=== PATIENT | male | born 1945 | race Caucasian/White ===

== ENCOUNTER → 2016-08-12 | Outpatient (CLI) | payer MEDICARE, OTHER ==
[~2016-08-12] MED LIST: AMLO5TAB2 PO; AMOX500C2 PO; CATHETER FLUSH 10 ML SYR IV PRN; CLIN150C17 PO; CLOP75TA PO; FENO134C PO; FENO135C PO; HYDR-3812 PO; HYDR1TAB86 PO; IOHEXOL 350 MG/ML 100 ML (OMNIPAQUE 350) VIAL IV ONE; MELO-195 PO; METO-333 PO; METO50TA2 PO; METO50TA7 PO; MTF500T PO; NIAC750T PO; NITR0.3T6 SL; NS 100 ML (IVPB) BAG IV ONE; PRD20T PO; ROSU20TA14 PO; ROSU20TA28 PO; ROSU5TAB PO; SMV20T PO; WRF5T PO
--- NOTE | 2016-08-12 14:26 | Diagnostic Imaging Report ---
PROCEDURE: CT neck soft tissue with contrast. TECHNIQUE: Multiple contiguous axial images were obtained through the neck after the administration of contrast. INDICATION: Right neck mass. CT of 07/18/16. 80 mL of Omnipaque 350 is administered intravenously. FINDINGS: There are multiple enlarged lymph nodes in the right cervical chain, anteriorly at level II lymph node measuring in short axis 1.5 cm compared to 1.3 cm on 07/18/16. There is significant enlargement in level II and level III cervical chain lymph nodes seen posterior to the right jugular vein deep to the sternocleidomastoid muscle. There is enlargement and associated significant fatty stranding developing around these nodes at this time. Some of the nodes demonstrate new central hypodensity which could be related to liquefaction, central early necrosis or early abscess formation. There is no drainable abscess seen at this time. The thyroid gland appears unremarkable. The submandibular glands appear symmetric. The parotid glands appear also symmetric. There is mild symmetric thickening in the tonsils with focal calcifications probably related to old infections. There is lucency around the posterior right molar tooth which could be related to a periapical infection or abscess. It is similar to the prior exam. Stable sclerotic lesions in C4 and T2 vertebral bodies of uncertain etiology. The visualized portions of the paranasal sinuses appear unremarkable. IMPRESSION: Interval further enlargement in multiple right cervical lymph nodes mostly involving level II and level III nodes. Level 3 nodes deep to the sternocleidomastoid muscle have internal low density and surrounding fatty stranding which may indicate an infectious etiology or possibly neoplasm with necrosis and surrounding tissue infiltration. The findings were discussed with Dr. Gutierrez and with Dr. Call by Dr. Navarrete at time of dictation. Dictated by: Dictated on workstation # [id number]
--- NOTE | 2016-08-12 14:48 | Diagnostic Imaging Report ---
INDICATION: Lesion on right side of the neck. Neck swollen last . COMPARISON STUDIES: None. FINDINGS: Frontal and lateral views of the chest demonstrate the lungs to be clear. The heart, mediastinum, pulmonary vascularity, and visualized portions of the abdomen appear normal. IMPRESSION: Negative chest. Dictated by: Dictated on workstation # [id number]
== END ==
LOC: RAD 13:08
PROVIDERS: ATTEND Family Medicine
DX: R22.1 Localized swelling, mass and lump, neck (principal)
CPT/HCPCS: 70491; 71020

== ENCOUNTER → 2016-08-13 | Outpatient (CLI) | payer MEDICARE, OTHER ==
[~2016-08-13] MED LIST changes: -CATHETER FLUSH 10 ML SYR IV PRN; -IOHEXOL 350 MG/ML 100 ML (OMNIPAQUE 350) VIAL IV ONE; -NS 100 ML (IVPB) BAG IV ONE
--- NOTE | 2016-08-13 12:37 | Diagnostic Imaging Report ---
Whole body bone scan. Technique: After the intravenous administration of 27 mCi of Technetium 99m MDP, whole body delayed phase bone scan images were obtained with lateral views of the head and neck and the chest regions. Indication: Sclerotic lesions at C4 and T2 vertebral bodies. Lymphadenopathy in the neck Findings: There is mild increased activity seen at T7 vertebral body level and at the L4 level eccentric to the right side. No other suspicious foci of activity seen. The small sclerotic lesions in the mid cervical and upper thoracic spine seen on CT scan of the neck demonstrate no associated significant increased radiotracer uptake. Degenerative related activities in the shoulders, knees and other joints noted. Urinary tract excretion seen. IMPRESSION: Mild nonspecific activity at T7 and L4 vertebral body levels seen. If the enlarged lymph nodes in the neck prove to be malignant, then MRI of the lumbar and thoracic spine to exclude early involvement at these levels would be suggested. Dictated by: Dictated on workstation # [id number]
== END ==
LOC: CARD 07:05
PROVIDERS: ATTEND Family Medicine
DX: M89.9 Disorder of bone, unspecified (principal); R59.0 Localized enlarged lymph nodes
CPT/HCPCS: 78306

== ENCOUNTER 2016-08-15 11:29 | Outpatient (CLI) | payer MEDICARE, OTHER ==
[~2016-08-15] VITALS: Ht 172.7 cm; Wt 81.2 kg
[~2016-08-15 11:29] MED LIST changes: -AMOX500C2 PO; -CLIN150C17 PO; -FENO134C PO; -HYDR-3812 PO; -METO-333 PO; -METO50TA2 PO; -PRD20T PO; -ROSU20TA28 PO; -ROSU5TAB PO
[2016-08-15 11:36] VITALS: BP 156/72
[2016-08-15] MEDS ORDERED: METO-333 PO (11:42)
[2016-08-15] MEDS ORDERED: FENO134C PO (11:43)
[2016-08-15] MEDS ORDERED: METO50TA2 PO (11:51)
[2016-09-05] MEDS ORDERED: HYDR-3812 PO (14:02)
== END 2016-08-15 11:50 | disposition home or self-care (01) ==
LOC: PREOP 11:29
PROVIDERS: ATTEND Surgery
DX: Z01.818 Encounter for other preprocedural examination (principal); Z11.2 Encounter for screening for other bacterial diseases; R59.0 Localized enlarged lymph nodes
CPT/HCPCS: 87081

== ENCOUNTER 2016-08-21 11:22 | Day surgery (SDC) | payer MEDICARE, OTHER ==
[~2016-08-21] VITALS: Ht 172.7 cm; Wt 81.2 kg
[2016-08-21 11:20] VITALS: BP 151/84
[~2016-08-21 11:22] MED LIST changes: +FENO134C PO; +METO-333 PO; +METO50TA2 PO
[2016-08-21] MEDS ORDERED: ROCURONIUM 50 MG/5 ML (ZEMURON) VIAL IV ONE (11:36)
[2016-08-21] MEDS ORDERED: ONDANSETRON 4 MG/2 ML (SDV) Z0FRAN ONE (11:36)
[2016-08-21] MEDS ORDERED: SEVOFLURANE (ULTANE) 15 ML INHAL SOLN ONE (11:36)
[2016-08-21] MEDS ORDERED: LIDOCAINE PF 2% 10 ML (XYLOCAINE) AMP ONE (11:36)
[2016-08-21] MEDS ORDERED: LACTATED RINGERS 1,000 ML IV ONE ×2 (11:36→13:38)
[2016-08-21] MEDS ORDERED: proPOfol 200 MG/20 ML (DIPRIVAN) VIAL IV ONE (11:36)
[2016-08-21] MEDS ORDERED: fentaNYL INJECTION 100 MCG/2 ML AMP ONE (11:36)
[2016-08-21] MEDS ORDERED: MIDAZOLAM 2 MG/2 ML (VERSED) VIAL ONE (11:37)
--- NOTE | 2016-08-21 11:39 | Progress Note-Pre Operative ---
Pre-Operative Progress Note H&P Reviewed The H&P was reviewed, patient examined and no changes noted. Date H&P Reviewed: Aug 21, 2016 Time H&P Reviewed: 11:38 Pre-Operative Diagnosis: Right cervical lymphadenopathy BEAN PEOPLES MD Aug 21, 2016 11:38 am
[2016-08-21] MEDS ORDERED: BUP/EPI 0.25% 1:200,000 (MARCAINE) 30 ML VIAL ONE (11:57)
[2016-08-21] MEDS ORDERED: ceFAZolin 1 GM/NS 50 ML IVPB IV ONE ×2 (12:00)
[2016-08-21] MEDS: LACTATED RINGERS 1,000 ML IV PRN ×2 (12:15→13:46)
--- NOTE | 2016-08-21 14:02 | Progress Note-Post Operative ---
Post-Operative Progess Note Pre-Operative Diagnosis Right cervical lymphadenopathy Post-Operative Diagnosis same Post-Op Procedure Note Date of Procedure: Aug 21, 2016 Name of Procedure: wedge biopsy Anesthesia Type Gen. Estimated blood loss (mL): minimal Specimen(s) collected wedge biopsy of lymph node segments BEAN PEOPLES MD Aug 21, 2016 2:02 pm
[2016-08-21] MEDS ORDERED: morphine INJ 10 MG/ML 1ML (SYR OR VIAL) IVP PRN (14:15)
[2016-08-21] MEDS ORDERED: ONDANSETRON 4 MG/2 ML (SDV) Z0FRAN IVP PRN (14:15)
[2016-08-21] MEDS ORDERED: MEPERIDINE (DEMEROL) INJ 50 MG/ML IVP PRN (14:15)
[2016-08-21 15:00] VITALS: BP 136/85
[2016-08-21 15:30] VITALS: BP 129/91
[2016-08-21] MEDS ORDERED: HYDR-3812 PO (15:39)
[2016-08-21 16:00] VITALS: BP 132/82
[2016-08-21 16:03] VITALS: BP 132/82
--- NOTE | 2016-08-22 11:04 | OPERATIVE REPORT ---
PROCEDURE PHYSICIAN: BEAN PEOPLES DATE OF PROCEDURE: 08/21/2016 PREOPERATIVE DIAGNOSIS: Right cervical lymphadenopathy. POSTOPERATIVE DIAGNOSIS: Right cervical lymphadenopathy. OPERATION: Wedge biopsy of right cervical lymph node (level of 3 region). ANESTHESIA: General anesthesia. BLOOD LOSS: Minimal. FLUIDS: 600 mL crystalloids. TYPE OF WOUND: Type I (clean wound). INDICATION FOR THE PROCEDURE: This gentleman was found to have a necrotic lymph node over the right side of the neck along level 3 of the lymphatic chain, as an incidental finding on a carotid ultrasound. Repeat study performed 3 months after the initial discovery showed more necrosis and therefore, it was felt reasonable to obtain a wedge biopsy to establish a definitive diagnosis. In addition, an 11 mm right thyroid nodule was also discovered. Informed consent was obtained after reviewing the operative details and complications of hematoma and wound infection. DESCRIPTION OF PROCEDURE: He was placed supine on the operative table and general anesthesia induced. Ancef was administered intravenously as a prophylaxis against wound infection. The right side of his neck was prepared and draped in the usual sterile manner. Preemptive analgesia was established using 0.25% Marcaine with epinephrine. A 5 cm incision was made along the anterior border of the sternomastoid muscle and the cervical fascia incised. An elongated group of lymph nodes came into view. Multiple wedge segments were obtained for histologic examination. Hemostasis was achieved using cautery and the incision closed using 3-0 PDS for platysma and 4-0 Vicryl for skin, in a subcuticular fashion. He tolerated the procedure well, was extubated in the operating room and taken to the recovery room in a stable condition. [place], sponges, and instruments were correct the end of the operation. Job ID: [id number] Dictated Date: 08/21/2016 13:56:38 Survey Workers Supervisor Date: 08/22/2016 10:56:59 / oralia AGUDELO
[2016-09-05] MEDS ORDERED: HYDR-3812 PO (14:02)
== END 2016-08-21 16:03 | disposition home or self-care (01) ==
LOC: SDC 11:22
PROVIDERS: ATTEND Surgery
DX: R59.0 Localized enlarged lymph nodes (principal); I25.10 Atherosclerotic heart disease of native coronary artery without angina pectoris; E11.9 Type 2 diabetes mellitus without complications; I10 Essential (primary) hypertension; E78.5 Hyperlipidemia, unspecified; Z87.891 Personal history of nicotine dependence
CPT/HCPCS: 82962; 88184; 88185; 88305; 88341; 88342

== ENCOUNTER 2016-08-24 21:24 | Emergency (ER) | payer MEDICARE, OTHER ==
[~2016-08-24] VITALS: Ht 172.7 cm; Wt 79.4 kg
[~2016-08-24 21:24] MED LIST changes: +HYDR-3812 PO
--- NOTE | 2016-08-24 21:47 | ED Lower Extremity ---
General Chief Complaint: Lower Extremity Stated Complaint: L LEG SWELLING Nursing Triage Note: c/o L leg swelling, patient recently had procedure done and has been off his anticoagulant Nursing Sepsis Screen: No Definite Risk Source: patient Exam Limitations: no limitations History of Present Illness Time seen by provider: 21:46 Initial Comments To ER with left leg swelling. Recently had a right cervical lymph node biopsy done by Dr. Call and was off of his Plavix during that time. Left leg swelling for 2-3 days. Denies shortness of breath. Cervical lymph node biopsy was done for an incidental finding of lymph node necrosis on a carotid Doppler. Onset: yesterday Severity: moderate Pain/Injury Location: right leg Method of Injury: unknown Modifying Factors: Improves With Movement Allergies and Home Medications Allergies Coded Allergies: Sulfamethoxazole (Verified Allergy, Unknown, 10/07/08) trimethoprim (Verified Allergy, Unknown, 10/07/08) Home Medications Amlodipine Besylate 5 Mg Tablet 5 MG PO DAILY (Reported) Clopidogrel Bisulfate 75 Mg Tablet 75 MG PO DAILY (Reported) Fenofibrate,Micronized 134 Mg Capsule 134 MG PO DAILY (Reported) Hydrocodone/Acetaminophen 1 Each Tablet #30 1-2 EACH PO Q4-6 HRS PRN PRN PAIN Prescribed by: MINH BEASLEY on 08/21/16 1539 Metformin Hcl 500 Mg Tablet 1,000 MG PO BID WITH MEALS (Reported) take 2 (500mg) tabs Metoprolol Tartrate 50 Mg Tablet 50 MG PO BID (Reported) Constitutional: see HPI EENTM: see HPI Respiratory: no symptoms reported Cardiovascular: no symptoms reported Genitourinary: no symptoms reported Musculoskeletal: no symptoms reported Skin: no symptoms reported Psychiatric/Neurological: No Symptoms Reported Past Otmauqy-Twddfs-Hbvfoq Hx Patient Social History Alcohol Use: Occasionally Uses Recreational Drug Use: No Smoking Status: Former Smoker Recent Foreign Travel: No Contact w/Someone Who Travel: No Recent Infectious Disease Expo: No Recent Hopitalizations: No Physical Abuse Screen: No Sexual Abuse: No Immunizations Up To Date Date of Pneumonia Vaccine: May 28, 2009 Date of Influenza Vaccine: Jun 29, 2016 Seasonal Allergies Seasonal Allergies: No Surgeries HX Surgeries: Yes (Turp, back sx) Surgeries: Coronary Stent Respiratory Hx Respiratory Disorders: No Cardiovascular Hx Cardiac Disorders: Yes (stent x1, ) Cardiac Disorders: Hypertension Neurological Hx Neurological Disorders: No Reproductive System Hx Reproductive Disorders: No Sexually Transmitted Disease: No Genitourinary Hx Genitourinary Disorders: No Gastrointestinal Hx Gastrointestinal Disorders: No Musculoskeletal Hx Musculoskeletal Disorders: No Endocrine Hx Endocrine Disorders: Yes Endocrine Disorders: Diabetes, Non-Insulin dep HEENT HX ENT Disorders: No (cataracts removed) Cancer Hx Cancer: Yes Cancer: Prostate Psychosocial Hx Psychiatric Problems: No Integumentary HX Skin/Integumentary Disorder: No Blood Transfusions Hx Blood Disorders: No Physical Exam Vital Signs Vital Sign - Last 12Hours 08/24/16 21:35 Temp 98.2 Pulse 93 Resp 18 B/P 181/102 Pulse Ox 96 Capillary Refill : Less Than 3 Seconds General Appearance: WD/WN no apparent distress HEENT: PERRL/EOMI normal ENT inspection Neck: non-tender full range of motion Respiratory: no respiratory distress no accessory muscle use Hips: bilateral hip non-tender, bilateral hip normal inspection, bilateral hip normal range of motion Legs: bilateral leg non-tender, bilateral leg normal inspection, bilateral leg normal range of motion, left leg swelling, left leg other (2+ pitting edema on the left) Knees: bilateral knee non-tender, bilateral knee normal inspection, bilateral knee normal range of motion Ankles: bilateral ankle non-tender, bilateral ankle normal inspection, bilateral ankle normal range of motion Feet: bilateral foot non-tender, bilateral foot normal inspection, bilateral foot normal range of motion Neurologic/Psychiatric: alert normal mood/affect oriented x 3 Skin: normal color warm/dry Progress/Results/Core Measures Results/Orders Lab Results Laboratory Tests Test 08/24/16 21:55 Range/Units Anion Gap 11 5-14 MMOL/L BUN/Creatinine Ratio 18 Basophils # (Auto) 0.0 0.0-0.1 10^3/uL Basophils (%) (Auto) 0 0-10 % Blood Urea Nitrogen 16 7-18 MG/DL Calcium Level 10.0 8.5-10.1 MG/DL Carbon Dioxide Level 22 21-32 MMOL/L Chloride Level 108 H 98-107 MMOL/L Creatinine 0.91 0.60-1.30 MG/DL Eosinophils # (Auto) 0.6 H 0.0-0.3 10^3/uL Eosinophils (%) (Auto) 8 0-10 % Estimat Glomerular Filtration Rate > 60 Glucose Level 118 H 70-105 MG/DL Hematocrit 44 40-54 % Hemoglobin 15.1 13.3-17.7 G/DL Lymphocytes # (Auto) 1.6 1.0-4.0 X 10^3 Lymphocytes (%) (Auto) 23 12-44 % Mean Corpuscular Hemoglobin 31 25-34 PG Mean Corpuscular Hemoglobin Concent 34 32-36 G/DL Mean Corpuscular Volume 89 80-99 FL Mean Platelet Volume 9.7 7.4-10.4 FL Monocytes # (Auto) 0.7 0.0-1.0 X 10^3 Monocytes (%) (Auto) 10 0-12 % Neutrophils # (Auto) 4.2 1.8-7.8 X 10^3 Neutrophils (%) (Auto) 59 42-75 % Platelet Count 263 130-400 10^3/uL Potassium Level 4.2 3.6-5.0 MMOL/L Red Blood Count 4.95 4.35-5.85 10^6/uL Red Cell Distribution Width 12.9 10.0-14.5 % Sodium Level 141 135-145 MMOL/L White Blood Count 7.1 4.3-11.0 10^3/uL My Orders Orders-OLGA LIDIA GARCIA APRN Us Venous Lower Ext Lt (08/24/16 21:41) Cbc With Automated Diff (08/24/16 21:47) Basic Metabolic Panel (08/24/16 21:47) Vital Signs/I&O Vital Sign - Last 12Hours 08/24/16 21:35 Temp 98.2 Pulse 93 Resp 18 B/P 181/102 Pulse Ox 96 Blood Pressure Mean: 128 Departure Impression Impression: Primary Impression: left inguinal lymphadenopathy Additional Impression: Left leg swelling Disposition: 01 HOME, SELF-CARE Condition: Stable Departure-Patient Inst. Decision time for Depature: 22:53 Referrals: LARRY KUO DO (PCP/Family) Primary Care Physician Patient Instructions: NO INSTRUCTIONS GIVEN Add. Discharge Instructions: 1. Follow-up with your regular doctor on Friday or Friday 2. Return to ER for any worsening 3. Keep left leg elevated as much as possible All discharge instructions reviewed with patient and/or family. Voiced understanding. OLGA LIDIA GARCIA APRN Aug 24, 2016 21:47
[2016-08-24 22:03] LABS: BASOPHILS % (AUTO) 0 % (0-10); EOSINOPHILS # (AUTO) 0.6 10^3/uL (0.0-0.3); EOSINOPHILS % (AUTO) 8 % (0-10); LYMPHOCYTES # (AUTO) 1.6 X 10^3 (1.0-4.0); LYMPHOCYTES % (AUTO) 23 % (12-44); MEAN CORPUSCULAR HEMOGLOBIN 31 PG (25-34); MEAN CORPUSCULAR HGB CONC 34 G/DL (32-36); MEAN CORPUSCULAR VOLUME 89 FL (80-99); MEAN PLATELET VOLUME 9.7 FL (7.4-10.4); MONOCYTES # (AUTO) 0.7 X 10^3 (0.0-1.0); MONOCYTES % (AUTO) 10 % (0-12); NEUTROPHILS # (AUTO) 4.2 X 10^3 (1.8-7.8); NEUTROPHILS % (AUTO) 59 % (42-75); PLATELET COUNT 263 10^3/uL (130-400); RED BLOOD COUNT 4.95 10^6/uL (4.35-5.85); RED CELL DISTRIBUTION WIDTH 12.9 % (10.0-14.5); WHITE BLOOD COUNT 7.1 10^3/uL (4.3-11.0)
[2016-08-24 22:29] LABS: ANION GAP 11 MMOL/L (5-14); BLOOD UREA NITROGEN 16 MG/DL (7-18); BUN/CREATININE RATIO 18; CARBON DIOXIDE 22 MMOL/L (21-32); CHLORIDE 108 MMOL/L (98-107); CREATININE SERUM 0.91 MG/DL (0.60-1.30); GFR ESTIMATED > 60; GLUCOSE 118 MG/DL (70-105); POTASSIUM 4.2 MMOL/L (3.6-5.0); SODIUM 141 MMOL/L (135-145)
[2016-08-24 23:01] VITALS: BP 167/99
--- NOTE | 2016-08-25 08:06 | Diagnostic Imaging Report ---
PROCEDURE: US left lower extremity venous. TECHNIQUE: Multiple real-time grayscale images were obtained over the left lower extremity in various projections. Additional duplex Doppler and color Doppler images were also obtained. INDICATION: The femoropopliteal deep venous system throughout the left lower extremity revealed normal color flow, normal compressibility and no thrombus. There is a left inguinal lymph node measuring 3.3 x 3.2 x 1.8 cm of uncertain significance and etiology. IMPRESSION: Negative for venous thrombus however inguinal lymphadenopathy noted, indeterminate. Dictated by: Dictated on workstation # [id number]
[2016-09-05] MEDS ORDERED: HYDR-3812 PO (14:02)
== END 2016-08-24 22:58 | disposition home or self-care (01) ==
LOC: EDUNIT# 21:24 → ER 21:25
DX: R59.0 Localized enlarged lymph nodes (principal); R22.42 Localized swelling, mass and lump, left lower limb; I10 Essential (primary) hypertension; E11.9 Type 2 diabetes mellitus without complications; Z79.899 Other long term (current) drug therapy; Z79.02 Long term (current) use of antithrombotics/antiplatelets; Z79.84 Long term (current) use of oral hypoglycemic drugs
CPT/HCPCS: 36415; 80048; 85025

== ENCOUNTER → 2016-09-03 | Outpatient (CLI) | payer MEDICARE, OTHER ==
[~2016-09-03] MED LIST changes: +AMOX500C2 PO; +CLIN150C17 PO; +PRD20T PO; +ROSU20TA28 PO; +ROSU5TAB PO
--- NOTE | 2016-09-03 13:18 | Diagnostic Imaging Report ---
EXAMINATION: PET-CT TECHNIQUE: Serum glucose level at the time of the study is: 119 mg/dL. 13.1 mCi of FDG was administered intravenously followed by obtaining PET images with corresponding noncontrast CT scan images. The CT scan was performed for anatomic correlation and attenuation correction and was not performed according to the diagnostic protocol of the areas covered. The scan was performed from the head to mid thighs. INDICATION: Large cell lymphoma. Study is correlated with CT scan of the neck from 08/12/2016 exam. FINDINGS: There is symmetric FDG uptake in the brain. There is an FDG avid nodule with SUV of 10 seen in the right tonsil measuring 1.5 cm approximately. There are also FDG avid cervical lymph nodes up to 1.7 cm at level II right cervical chain with multiple other smaller FDG avid lymph nodes more inferiorly at level III, IV and V nodes. There is also an FDG avid intraparotid lymph node on the left side measuring 1 cm in short axis. There are FDG avid lymph nodes mildly enlarged in both axilla measuring 1.3 cm on the left side and up to 1 cm on the right side. There is no hypermetabolic mass seen in the chest. IN THE ABDOMEN AND PELVIS: There is diffuse mild increased uptake in the colon, may relate to colitis with no significantly prominent focus of uptake or correlating focal mass identified by CT scan to suggest neoplastic etiology. The spleen is not significantly enlarged with no suspicious or hypermetabolic mass. There are para-aortic and left common iliac mildly enlarged hypermetabolic lymph nodes seen up to 1.4 cm at the left common iliac station. The para-aortic nodes are up to 1.1 cm aortocaval node in the lower abdomen. No upper retroperitoneal significant adenopathy. More inferiorly in the pelvis, there is a large right external iliac lymph node measuring 5 x 2.5 cm with significant FDG uptake and a maximum SUV of 13. There are bilateral hypermetabolic inguinal enlarged lymph nodes also noted. The osseous structures demonstrate no significant FDG uptake. IMPRESSION: In addition to hypermetabolic nodule in the right tonsil, there are numerous hypermetabolic enlarged lymph nodes in right cervical chain, the left parotid gland, bilaterally in the axilla, lower para-aortic, left common iliac, left external iliac and bilateral inguinal lymph node stations compatible with lymphoma. Dictated by: Dictated on workstation # [id number]
== END ==
LOC: RAD 08:52
PROVIDERS: ATTEND Family Medicine
DX: C83.30 Diffuse large B-cell lymphoma, unspecified site (principal); J35.9 Chronic disease of tonsils and adenoids, unspecified; R59.0 Localized enlarged lymph nodes

== ENCOUNTER 2016-09-04 05:51 | Outpatient (CLI) | payer MEDICARE, OTHER ==
[~2016-09-04] VITALS: Ht 172.7 cm; Wt 79.4 kg
[~2016-09-04 05:51] MED LIST changes: -AMOX500C2 PO; -CLIN150C17 PO; -PRD20T PO; -ROSU20TA28 PO; -ROSU5TAB PO
--- OUTSIDE RECORDS SUMMARY | 2016-09-04 05:56 | XMS REPORT | Continuity of Care Document ---
Author Author [facility] Organization [facility] Address Unknown Phone Unavailable Allergies Active Description Code Type Severity Reaction Onset Reported/Identified Relationship to Patient Clinical Status Yes sulfamethoxazole [id number] Drug Allergy Unknown N/A 10/07/2008 Yes trimethoprim [id number] Drug Allergy Unknown N/A 10/07/2008 Medications Problems Date Dx Coded Attending Type Code Diagnosis Diagnosed By 04/07/2010 Ot 250.00 04/07/2010 Ot 272.4 04/07/2010 Ot 401.9 04/07/2010 Ot 414.01 04/07/2010 Ot 415.19 05/30/2010 Ot 368.8 05/30/2010 Ot 414.00 05/30/2010 Ot 435.9 05/30/2010 Ot V58.61 05/30/2010 Ot V58.69 07/06/2010 Ot V45.82 07/06/2010 Ot V57.89 08/05/2010 Ot 272.4 08/05/2010 Ot 414.01 08/05/2010 Ot 415.19 11/28/2010 Ot 272.4 HYPERLIPIDEMIA NEC/NOS 11/28/2010 Ot 401.9 HYPERTENSION NOS 11/28/2010 Ot 414.01 CORONARY ATHEROSCLEROSIS OF [place] CORON 11/28/2010 Ot 415.19 OTH PULMON EMBOLISM/INFARCT 05/25/2012 Ot 211.4 BENIGN NEOPL RECTUM/ANUS 05/25/2012 Ot 250.00 DIAB DRISS WO COMPL, TYPE II OR UNSPEC TY 05/25/2012 Ot 272.0 PURE HYPERCHOLESTEROLEM 05/25/2012 Ot 401.9 HYPERTENSION NOS 05/25/2012 Ot 414.01 CORONARY ATHEROSCLEROSIS OF [place] CORON 05/25/2012 Ot 562.10 DIVERTICULOSIS COLON (W/O MENT OF HEMORR 05/25/2012 Ot V45.82 PERCUTANEOUS TRANSLUM CORON ANGIOPLASTY 05/25/2012 Ot V58.63 LONG-TERM(CURRENT)USE OF ANTIPLATELET/AN 05/25/2012 Ot V58.69 OTH MED,LT,CURRENT USE 05/25/2012 Ot V76.51 SCREEN MAL NEOP-COLON 06/05/2012 Ot 250.00 DIAB DRISS WO COMPL, TYPE II OR UNSPEC TY 06/05/2012 Ot 272.4 HYPERLIPIDEMIA NEC/NOS 06/05/2012 Ot 401.9 HYPERTENSION NOS 06/05/2012 Ot 414.01 CORONARY ATHEROSCLEROSIS OF [place] CORON 06/05/2012 Ot 562.10 DIVERTICULOSIS COLON (W/O MENT OF HEMORR 06/05/2012 Ot 998.11 HEMOR COMPLIC A PROCEDURE 06/05/2012 Ot V45.82 PERCUTANEOUS TRANSLUM CORON ANGIOPLASTY 06/05/2012 Ot V58.61 ANTICOAGULANTS,LT,CURRENT USE 06/05/2012 Ot V58.63 LONG-TERM(CURRENT)USE OF ANTIPLATELET/AN 06/05/2012 Ot V58.66 LONG-TERM (CURRENT) USE OF ASPIRIN 06/09/2014 LARRY KUO DO Ot 241.0 06/21/2014 LARRY KUO DO Ot 241.0 09/22/2014 APRIL BARRON Ot 272.4 09/22/2014 APRIL BARRON Ot 414.00 03/17/2015 Ot 433.10 03/17/2015 Ot 786.50 03/17/2015 Ot 786.50 03/17/2015 Ot 415.19 03/17/2015 Ot V58.69 03/17/2015 Ot 415.19 03/17/2015 Ot 272.4 03/17/2015 Ot 414.01 03/17/2015 Ot 272.4 03/17/2015 Ot 401.9 03/17/2015 Ot 414.01 03/17/2015 Ot 272.4 03/17/2015 Ot 401.9 03/17/2015 Ot 414.01 03/17/2015 Ot V58.69 03/17/2015 Ot 272.4 03/17/2015 Ot 401.9 03/17/2015 Ot 414.01 03/17/2015 Ot 415.19 03/17/2015 Ot V12.51 03/17/2015 Ot 272.4 03/17/2015 Ot 401.9 03/17/2015 Ot 414.00 03/17/2015 Ot V58.69 03/17/2015 Ot 272.4 03/17/2015 Ot 401.9 03/17/2015 Ot 414.00 03/17/2015 Ot V58.69 03/17/2015 Ot 272.4 03/17/2015 Ot 401.9 03/17/2015 Ot V58.69 03/17/2015 Ot V72.84 03/17/2015 Ot 272.4 03/17/2015 Ot 414.00 03/17/2015 Ot V58.69 03/17/2015 Ot 241.0 03/17/2015 Ot 240.9 03/17/2015 Ot 241.0 03/17/2015 Ot 272.4 03/17/2015 Ot 401.9 03/17/2015 Ot 414.00 03/17/2015 Ot V58.69 03/17/2015 Ot 414.00 03/17/2015 Ot V45.82 03/17/2015 VICTOR M FERRARI FAC, ADONAY FACP CCDS Ot 272.4 03/17/2015 VICTOR M FERRARI FAC, ALI FACP CCDS Ot 414.01 03/17/2015 VICTOR M FERRARI [facility], ALI FACP CCDS Ot V58.69 03/17/2015 BAIMA, APRIL L LAY OUT MACHINE OPERATOR Ot 272.4 03/17/2015 BAIMA, APRIL L LAY OUT MACHINE OPERATOR Ot 401.9 03/17/2015 BAIMA, APRIL L LAY OUT MACHINE OPERATOR Ot 414.01 03/17/2015 BAIMA, APRIL L LAY OUT MACHINE OPERATOR Ot 272.4 03/17/2015 BAIMA, APRIL L LAY OUT MACHINE OPERATOR Ot V58.69 03/17/2015 BAIMA, APRIL L LAY OUT MACHINE OPERATOR Ot 272.4 03/17/2015 BAIMA, APRIL L LAY OUT MACHINE OPERATOR Ot 414.00 03/17/2015 BAIMA, APRIL L LAY OUT MACHINE OPERATOR Ot 272.4 03/17/2015 BAIMA, APRIL L LAY OUT MACHINE OPERATOR Ot 414.00 03/17/2015 BAIMA, APRIL L LAY OUT MACHINE OPERATOR Ot 447.9 03/17/2015 LARRY KUO DO Ot 241.0 03/17/2015 BAIMA, APRIL L LAY OUT MACHINE OPERATOR Ot 272.4 03/17/2015 BAIMA, APRIL L LAY OUT MACHINE OPERATOR Ot 414.00 03/21/2015 BAIMA, APRIL L LAY OUT MACHINE OPERATOR Ot 272.4 03/24/2015 BAIMA, APRIL L LAY OUT MACHINE OPERATOR Ot 272.4 04/06/2015 BAIMA, APRIL L LAY OUT MACHINE OPERATOR Ot 272.4 07/05/2015 VENKAT NELSON MD Ot C61 07/19/2015 LESLIE FERRARI, VENKAT Saurabh Ot C61 09/15/2015 Ot 786.50 09/15/2015 Ot 415.19 09/15/2015 Ot V58.69 09/15/2015 Ot 415.19 09/15/2015 Ot 272.4 09/15/2015 Ot 414.01 09/15/2015 Ot 272.4 09/15/2015 Ot 401.9 09/15/2015 Ot 414.01 09/15/2015 Ot 272.4 09/15/2015 Ot 401.9 09/15/2015 Ot 414.01 09/15/2015 Ot V58.69 09/15/2015 Ot 272.4 09/15/2015 Ot 401.9 09/15/2015 Ot 414.01 09/15/2015 Ot 415.19 09/15/2015 Ot V12.51 09/15/2015 Ot 272.4 09/15/2015 Ot 401.9 09/15/2015 Ot 414.00 09/15/2015 Ot V58.69 09/15/2015 Ot 272.4 09/15/2015 Ot 401.9 09/15/2015 Ot 414.00 09/15/2015 Ot V58.69 09/15/2015 Ot 272.4 09/15/2015 Ot 401.9 09/15/2015 Ot V58.69 09/15/2015 Ot V72.84 09/15/2015 Ot 272.4 09/15/2015 Ot 414.00 09/15/2015 Ot V58.69 09/15/2015 Ot 241.0 09/15/2015 Ot 240.9 09/15/2015 Ot 241.0 09/15/2015 Ot 272.4 09/15/2015 Ot 401.9 09/15/2015 Ot 414.00 09/15/2015 Ot V58.69 09/15/2015 Ot 414.00 09/15/2015 Ot V45.82 09/15/2015 VICTOR M FERRARI FACC, ADONAY GREGORYP CCDS Ot 272.4 09/15/2015 VICTOR M FERRARI FACC, ADONAY GREGORYP CCDS Ot 414.01 09/15/2015 VICTOR M FERRARI FACC, ADONAY FACP CCDS Ot V58.69 09/15/2015 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 Ot 272.4 09/15/2015 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 Ot 401.9 09/15/2015 BAIMA, APRIL L LAY OUT MACHINE OPERATOR Ot 414.01 09/15/2015 BAIMA, APRIL L LAY OUT MACHINE OPERATOR Ot 272.4 09/15/2015 BAIMA, APRIL L LAY OUT MACHINE OPERATOR Ot V58.69 09/15/2015 BAIMA, APRIL L LAY OUT MACHINE OPERATOR Ot 272.4 09/15/2015 BAIMA, APRIL L LAY OUT MACHINE OPERATOR Ot 414.00 09/15/2015 BAIMA, APRIL L LAY OUT MACHINE OPERATOR Ot 272.4 09/15/2015 BAIMA, APRIL L LAY OUT MACHINE OPERATOR Ot 414.00 09/15/2015 BAIMA, APRIL L LAY OUT MACHINE OPERATOR Ot 447.9 09/15/2015 LARRY KUO DO A Ot 241.0 09/15/2015 BAIMA, APRIL L LAY OUT MACHINE OPERATOR Ot 272.4 09/15/2015 BAIMA, APRIL L LAY OUT MACHINE OPERATOR Ot 414.00 09/15/2015 BAIMA, APRIL L LAY OUT MACHINE OPERATOR Ot 272.4 09/15/2015 VENKAT NELSON MD Ot C61 10/09/2015 BAIMA, APRIL L LAY OUT MACHINE OPERATOR Ot E78.5 10/09/2015 BAIMA, APRIL L LAY OUT MACHINE OPERATOR Ot I25.10 03/15/2016 Ot 272.4 HYPERLIPIDEMIA NEC/NOS 03/15/2016 Ot 401.9 HYPERTENSION NOS 03/15/2016 Ot 414.01 CORONARY ATHEROSCLEROSIS OF [place] CORON 03/15/2016 Ot V58.69 OTH MED,LT,CURRENT USE 03/15/2016 Ot 272.4 HYPERLIPIDEMIA NEC/NOS 03/15/2016 Ot 401.9 HYPERTENSION NOS 03/15/2016 Ot 414.01 CORONARY ATHEROSCLEROSIS OF [place] CORON 03/15/2016 Ot 415.19 OTH PULMON EMBOLISM/INFARCT 03/15/2016 Ot V12.51 HX-VENOUS THROMBOSIS EMBOLISM 03/15/2016 Ot 272.4 HYPERLIPIDEMIA NEC/NOS 03/15/2016 Ot 401.9 HYPERTENSION NOS 03/15/2016 Ot 414.00 CORON ATHEROSCLER NOS TYPE VESSEL, NATIV 03/15/2016 Ot V58.69 OTH MED,LT,CURRENT USE 03/15/2016 Ot 272.4 HYPERLIPIDEMIA NEC/NOS 03/15/2016 Ot 401.9 HYPERTENSION NOS 03/15/2016 Ot 414.00 CORON ATHEROSCLER NOS TYPE VESSEL, NATIV 03/15/2016 Ot V58.69 OTH MED,LT,CURRENT USE 03/15/2016 Ot 272.4 HYPERLIPIDEMIA NEC/NOS 03/15/2016 Ot 401.9 HYPERTENSION NOS 03/15/2016 Ot V58.69 OTH MED,LT,CURRENT USE 03/15/2016 Ot V72.84 EXAM PRE-OPERATIVE NOS 03/15/2016 Ot 272.4 HYPERLIPIDEMIA NEC/NOS 03/15/2016 Ot 414.00 CORON ATHEROSCLER NOS TYPE VESSEL, NATIV 03/15/2016 Ot V58.69 OTH MED,LT,CURRENT USE 03/15/2016 Ot 241.0 NONTOX UNINODULAR GOITER 03/15/2016 Ot 240.9 GOITER NOS 03/15/2016 Ot 241.0 NONTOX UNINODULAR GOITER 03/15/2016 Ot 272.4 HYPERLIPIDEMIA NEC/NOS 03/15/2016 Ot 401.9 HYPERTENSION NOS 03/15/2016 Ot 414.00 CORON ATHEROSCLER NOS TYPE VESSEL, NATIV 03/15/2016 Ot V58.69 OTH MED,LT,CURRENT USE 03/15/2016 Ot 414.00 CORON ATHEROSCLER NOS TYPE VESSEL, NATIV 03/15/2016 Ot V45.82 PERCUTANEOUS TRANSLUM CORON ANGIOPLASTY 03/15/2016 VICTOR M FERRARI FACKailash, ALI FACP CCDS Ot 272.4 HYPERLIPIDEMIA NEC/NOS 03/15/2016 VICTOR M FERRARI FACC, ALI FACP CCDS Ot 414.01 CORONARY ATHEROSCLEROSIS OF [place] CORON 03/15/2016 VICTOR M FERRARI FACC, ALI FACP CCDS Ot V58.69 OTH MED,LT,CURRENT USE 03/15/2016 BAIMA, APRIL L LAY OUT MACHINE OPERATOR Ot 272.4 HYPERLIPIDEMIA NEC/NOS 03/15/2016 BAIMA, APRIL L LAY OUT MACHINE OPERATOR Ot 401.9 HYPERTENSION NOS 03/15/2016 BAIMA, APRIL L LAY OUT MACHINE OPERATOR Ot 414.01 CORONARY ATHEROSCLEROSIS OF [place] CORON 03/15/2016 BAIMA, APRIL L LAY OUT MACHINE OPERATOR Ot 272.4 HYPERLIPIDEMIA NEC/NOS 03/15/2016 BAIMA, APRIL L LAY OUT MACHINE OPERATOR Ot V58.69 OTH MED,LT,CURRENT USE 03/15/2016 BAIMA, APRIL L LAY OUT MACHINE OPERATOR Ot 272.4 HYPERLIPIDEMIA NEC/NOS 03/15/2016 BAIMA, APRIL L LAY OUT MACHINE OPERATOR Ot 414.00 CORON ATHEROSCLER NOS TYPE VESSEL, NATIV 03/15/2016 BAIMA, APRIL L LAY OUT MACHINE OPERATOR Ot 272.4 HYPERLIPIDEMIA NEC/NOS 03/15/2016 BAIMA, APRIL L LAY OUT MACHINE OPERATOR Ot 414.00 CORON ATHEROSCLER NOS TYPE VESSEL, NATIV 03/15/2016 BAIMA, APRIL L LAY OUT MACHINE OPERATOR Ot 447.9 ARTERIAL DISEASE NOS 03/15/2016 LARRY KUO DO Ot 241.0 NONTOX UNINODULAR GOITER 03/15/2016 BAIMA, APRIL L LAY OUT MACHINE OPERATOR Ot 272.4 HYPERLIPIDEMIA NEC/NOS 03/15/2016 BAIMA, APRIL L LAY OUT MACHINE OPERATOR Ot 414.00 CORON ATHEROSCLER NOS TYPE VESSEL, NATIV 03/15/2016 BAIMA, APRIL L LAY OUT MACHINE OPERATOR Ot 272.4 HYPERLIPIDEMIA NEC/NOS 03/15/2016 LESLIE FERRARI, VENKAT Wiley Ot C61 MALIGNANT NEOPLASM OF PROSTATE 03/15/2016 BAIMA, APRIL L LAY OUT MACHINE OPERATOR Ot E78.5 HYPERLIPIDEMIA, UNSPECIFIED 03/15/2016 BAIMA, APRIL L LAY OUT MACHINE OPERATOR Ot I25.10 ATHSCL HEART DISEASE OF [place] CORONARY 03/15/2016 BAIMA, APRIL L LAY OUT MACHINE OPERATOR Ot I25.10 ATHSCL HEART DISEASE OF [place] CORONARY 03/19/2016 BAIMA, APRIL L LAY OUT MACHINE OPERATOR Ot E78.5 HYPERLIPIDEMIA, UNSPECIFIED 03/19/2016 BAIMA, APRIL L LAY OUT MACHINE OPERATOR Ot I25.10 ATHSCL HEART DISEASE OF [place] CORONARY 04/05/2016 BAIMA, APRIL L LAY OUT MACHINE OPERATOR Ot E78.5 HYPERLIPIDEMIA, UNSPECIFIED 04/05/2016 BAIMA, APRIL L LAY OUT MACHINE OPERATOR Ot I25.10 ATHSCL HEART DISEASE OF [place] CORONARY 05/07/2016 Ot 272.4 HYPERLIPIDEMIA NEC/NOS 05/07/2016 Ot 401.9 HYPERTENSION NOS 05/07/2016 Ot 414.01 CORONARY ATHEROSCLEROSIS OF [place] CORON 05/07/2016 Ot 415.19 OTH PULMON EMBOLISM/INFARCT 05/07/2016 Ot V12.51 HX-VENOUS THROMBOSIS EMBOLISM 05/07/2016 Ot 272.4 HYPERLIPIDEMIA NEC/NOS 05/07/2016 Ot 401.9 HYPERTENSION NOS 05/07/2016 Ot 414.00 CORON ATHEROSCLER NOS TYPE VESSEL, NATIV 05/07/2016 Ot V58.69 OTH MED,LT,CURRENT USE 05/07/2016 Ot 272.4 HYPERLIPIDEMIA NEC/NOS 05/07/2016 Ot 401.9 HYPERTENSION NOS 05/07/2016 Ot 414.00 CORON ATHEROSCLER NOS TYPE VESSEL, NATIV 05/07/2016 Ot V58.69 OTH MED,LT,CURRENT USE 05/07/2016 Ot 272.4 HYPERLIPIDEMIA NEC/NOS 05/07/2016 Ot 401.9 HYPERTENSION NOS 05/07/2016 Ot V58.69 OTH MED,LT,CURRENT USE 05/07/2016 Ot V72.84 EXAM PRE-OPERATIVE NOS 05/07/2016 Ot 272.4 HYPERLIPIDEMIA NEC/NOS 05/07/2016 Ot 414.00 CORON ATHEROSCLER NOS TYPE VESSEL, NATIV 05/07/2016 Ot V58.69 OTH MED,LT,CURRENT USE 05/07/2016 Ot 241.0 NONTOX UNINODULAR GOITER 05/07/2016 Ot 240.9 GOITER NOS 05/07/2016 Ot 241.0 NONTOX UNINODULAR GOITER 05/07/2016 Ot 272.4 HYPERLIPIDEMIA NEC/NOS 05/07/2016 Ot 401.9 HYPERTENSION NOS 05/07/2016 Ot 414.00 CORON ATHEROSCLER NOS TYPE VESSEL, NATIV 05/07/2016 Ot V58.69 OTH MED,LT,CURRENT USE 05/07/2016 Ot 414.00 CORON ATHEROSCLER NOS TYPE VESSEL, NATIV 05/07/2016 Ot V45.82 PERCUTANEOUS TRANSLUM CORON ANGIOPLASTY 05/07/2016 VICTOR M FERRARI FACC, ADONAY FACP CCDS Ot 272.4 HYPERLIPIDEMIA NEC/NOS 05/07/2016 VICTOR M FERRARI FACC, ADONAY FACShekhar CCDS Ot 414.01 CORONARY ATHEROSCLEROSIS OF [place] CORON 05/07/2016 VICTOR M FERRARI FACC, ALI FACShekhar CCDS Ot V58.69 OTH MED,LT,CURRENT USE 05/07/2016 BAIMA, APRIL L LAY OUT MACHINE OPERATOR Ot 272.4 HYPERLIPIDEMIA NEC/NOS 05/07/2016 BAIMA, APRIL L LAY OUT MACHINE OPERATOR Ot 401.9 HYPERTENSION NOS 05/07/2016 BAIMA, APRIL L LAY OUT MACHINE OPERATOR Ot 414.01 CORONARY ATHEROSCLEROSIS OF [place] CORON 05/07/2016 BAIMA, APRIL L LAY OUT MACHINE OPERATOR Ot 272.4 HYPERLIPIDEMIA NEC/NOS 05/07/2016 BAIMA, APRIL L LAY OUT MACHINE OPERATOR Ot V58.69 OTH MED,LT,CURRENT USE 05/07/2016 BAIMA, APRIL L LAY OUT MACHINE OPERATOR Ot 272.4 HYPERLIPIDEMIA NEC/NOS 05/07/2016 BAIMA, APRIL L LAY OUT MACHINE OPERATOR Ot 414.00 CORON ATHEROSCLER NOS TYPE VESSEL, NATIV 05/07/2016 BAIMA, APRIL L LAY OUT MACHINE OPERATOR Ot 272.4 HYPERLIPIDEMIA NEC/NOS 05/07/2016 BAIAPRIL US L LAY OUT MACHINE OPERATOR Ot 414.00 CORON ATHEROSCLER NOS TYPE VESSEL, NATIV 05/07/2016 BAIMA APRIL L LAY OUT MACHINE OPERATOR Ot 447.9 ARTERIAL DISEASE NOS 05/07/2016 LARRY KUO DO Ot 241.0 NONTOX UNINODULAR GOITER 05/07/2016 BAIMAAPRIL L LAY OUT MACHINE OPERATOR Ot 272.4 HYPERLIPIDEMIA NEC/NOS 05/07/2016 BAIMAAPRIL L LAY OUT MACHINE OPERATOR Ot 414.00 CORON ATHEROSCLER NOS TYPE VESSEL, NATIV 05/07/2016 BAIMA, APRIL L LAY OUT MACHINE OPERATOR Ot 272.4 HYPERLIPIDEMIA NEC/NOS 05/07/2016 LESLIE FERRARI, VENKAT Wiley Ot C61 MALIGNANT NEOPLASM OF PROSTATE 05/07/2016 BAIMA, APRIL L LAY OUT MACHINE OPERATOR Ot E78.5 HYPERLIPIDEMIA, UNSPECIFIED 05/07/2016 BAIMA, APRIL L LAY OUT MACHINE OPERATOR Ot I25.10 ATHSCL HEART DISEASE OF [place] CORONARY 05/07/2016 KASANDRAAPRIL US L LAY OUT MACHINE OPERATOR Ot E78.5 HYPERLIPIDEMIA, UNSPECIFIED 05/07/2016 BAIMA, APRIL L LAY OUT MACHINE OPERATOR Ot I25.10 ATHSCL HEART DISEASE OF [place] CORONARY 05/28/2016 VICTOR M FERRARI FACC, ADONAY FACP CCDS Ot E78.4 OTHER HYPERLIPIDEMIA 05/28/2016 VICTOR M FERRARI FACC, ADONAY FACP CCDS Ot I10 ESSENTIAL (PRIMARY) HYPERTENSION 05/28/2016 VICTOR M FERRARI FACC, ALI FACP CCDS Ot I25.10 ATHSCL HEART DISEASE OF [place] CORONARY 05/28/2016 VICTOR M FERRARI FACC, ADONAY FACP CCDS Ot I65.23 OCCLUSION AND STENOSIS OF BILATERAL [place] 05/28/2016 VICTOR M FERRARI FACC, ADONAY FACP CCDS Ot Z72.0 TOBACCO USE 05/31/2016 ADONAY DOW MD, FACC FACP CCDS Ot E78.4 OTHER HYPERLIPIDEMIA 05/31/2016 VICTOR M FERRARI FACC, ALI FACP CCDS Ot I10 ESSENTIAL (PRIMARY) HYPERTENSION 05/31/2016 VICTOR M FERRARI FACC, ALI FACP CCDS Ot I25.10 ATHSCL HEART DISEASE OF [place] CORONARY 05/31/2016 VICTOR M FERRARI FACC, ADONAY FACP CCDS Ot I65.23 OCCLUSION AND STENOSIS OF BILATERAL [place] 05/31/2016 VICTOR M FERRARI FACC, ALI FACP CCDS Ot Z72.0 TOBACCO USE 07/02/2016 LARRY KUO DO Ot M25.531 PAIN IN RIGHT WRIST 07/11/2016 SHIELA CARTER, LARRY Wiley Ot E04.1 NONTOXIC SINGLE THYROID NODULE 07/11/2016 SHIELA CARTER, LARRY Wiley Ot R22.1 LOCALIZED SWELLING, MASS AND LUMP, NECK 07/12/2016 SHIELA CARTER, LARRY Wiley Ot E04.1 NONTOXIC SINGLE THYROID NODULE 07/12/2016 SHIELA CARTER, LARRY Wiley Ot R22.1 LOCALIZED SWELLING, MASS AND LUMP, NECK 07/12/2016 SHIELA CARTER, LARRY Wiley Ot E04.1 NONTOXIC SINGLE THYROID NODULE 07/12/2016 SHIELA CARTER, LARRY Wiley Ot R22.1 LOCALIZED SWELLING, MASS AND LUMP, NECK 07/18/2016 Ot 272.4 HYPERLIPIDEMIA NEC/NOS 07/18/2016 Ot 401.9 HYPERTENSION NOS 07/18/2016 Ot 414.00 CORON ATHEROSCLER NOS TYPE VESSEL, NATIV 07/18/2016 Ot V58.69 OTH MED,LT,CURRENT USE 07/18/2016 Ot 272.4 HYPERLIPIDEMIA NEC/NOS 07/18/2016 Ot 401.9 HYPERTENSION NOS 07/18/2016 Ot V58.69 OTH MED,LT,CURRENT USE 07/18/2016 Ot V72.84 EXAM PRE-OPERATIVE NOS 07/18/2016 Ot 272.4 HYPERLIPIDEMIA NEC/NOS 07/18/2016 Ot 414.00 CORON ATHEROSCLER NOS TYPE VESSEL, NATIV 07/18/2016 Ot V58.69 OTH MED,LT,CURRENT USE 07/18/2016 Ot 241.0 NONTOX UNINODULAR GOITER 07/18/2016 Ot 240.9 GOITER NOS 07/18/2016 Ot 241.0 NONTOX UNINODULAR GOITER 07/18/2016 Ot 272.4 HYPERLIPIDEMIA NEC/NOS 07/18/2016 Ot 401.9 HYPERTENSION NOS 07/18/2016 Ot 414.00 CORON ATHEROSCLER NOS TYPE VESSEL, NATIV 07/18/2016 Ot V58.69 OTH MED,LT,CURRENT USE 07/18/2016 Ot 414.00 CORON ATHEROSCLER NOS TYPE VESSEL, NATIV 07/18/2016 Ot V45.82 PERCUTANEOUS TRANSLUM CORON ANGIOPLASTY 07/18/2016 VICTOR M FERRARI FACKailash, ADONAY ANDRES CCDS Ot 272.4 HYPERLIPIDEMIA NEC/NOS 07/18/2016 VICTOR M FERRARI FACC, ADONAY ANDRES CCDS Ot 414.01 CORONARY ATHEROSCLEROSIS OF [place] CORON 07/18/2016 VICTOR M FERRARI FACC, ADONAY ANDRES CCDS Ot V58.69 OTH MED,LT,CURRENT USE 07/18/2016 BAIMA, APRIL L LAY OUT MACHINE OPERATOR Ot 272.4 HYPERLIPIDEMIA NEC/NOS 07/18/2016 BAIMA, APRIL L LAY OUT MACHINE OPERATOR Ot 401.9 HYPERTENSION NOS 07/18/2016 BAIMA, APRLI L LAY OUT MACHINE OPERATOR Ot 414.01 CORONARY ATHEROSCLEROSIS OF [place] CORON 07/18/2016 BAIMA, APRIL L LAY OUT MACHINE OPERATOR Ot 272.4 HYPERLIPIDEMIA NEC/NOS 07/18/2016 BAIMA, APRIL L LAY OUT MACHINE OPERATOR Ot V58.69 OTH MED,LT,CURRENT USE 07/18/2016 BAIMA, APRIL L LAY OUT MACHINE OPERATOR Ot 272.4 HYPERLIPIDEMIA NEC/NOS 07/18/2016 BAIMA, APRIL L LAY OUT MACHINE OPERATOR Ot 414.00 CORON ATHEROSCLER NOS TYPE VESSEL, NATIV 07/18/2016 BAIMA, APRIL L LAY OUT MACHINE OPERATOR Ot 272.4 HYPERLIPIDEMIA NEC/NOS 07/18/2016 BAIMA, APRIL L LAY OUT MACHINE OPERATOR Ot 414.00 CORON ATHEROSCLER NOS TYPE VESSEL, NATIV 07/18/2016 BAIMA, APRIL L LAY OUT MACHINE OPERATOR Ot 447.9 ARTERIAL DISEASE NOS 07/18/2016 SHIELA DOLARRY A Ot 241.0 NONTOX UNINODULAR GOITER 07/18/2016 BAIMA, APRIL L LAY OUT MACHINE OPERATOR Ot 272.4 HYPERLIPIDEMIA NEC/NOS 07/18/2016 BAIMA, APRIL L LAY OUT MACHINE OPERATOR Ot 414.00 CORON ATHEROSCLER NOS TYPE VESSEL, NATIV 07/18/2016 BAIMA, APRIL L LAY OUT MACHINE OPERATOR Ot 272.4 HYPERLIPIDEMIA NEC/NOS 07/18/2016 VENKAT NELSON MD Ot C61 MALIGNANT NEOPLASM OF PROSTATE 07/18/2016 BAIMA, APRIL L LAY OUT MACHINE OPERATOR Ot E78.5 HYPERLIPIDEMIA, UNSPECIFIED 07/18/2016 BAIMA, APRIL L LAY OUT MACHINE OPERATOR Ot I25.10 ATHSCL HEART DISEASE OF [place] CORONARY 07/18/2016 BAIMA, APRIL L LAY OUT MACHINE OPERATOR Ot E78.5 HYPERLIPIDEMIA, UNSPECIFIED 07/18/2016 BAIMA, APRIL L LAY OUT MACHINE OPERATOR Ot I25.10 ATHSCL HEART DISEASE OF [place] CORONARY 07/18/2016 ADONAY DOW MD, FACC, FACP CCDS Ot E78.4 OTHER HYPERLIPIDEMIA 07/18/2016 VICTOR M FERRARI FACC, [facility] I10 ESSENTIAL (PRIMARY) HYPERTENSION 07/18/2016 VICTOR M FERRARI FACC, ADONAY [facility] CCDS Ot I25.10 ATHSCL HEART DISEASE OF [place] CORONARY 07/18/2016 VICTOR M FERRARI FACC, ADONAY [facility] CCDS Ot I65.23 OCCLUSION AND STENOSIS OF BILATERAL [place] 07/18/2016 VICTOR M GREGORY, ALI FACP CCDS Ot Z72.0 TOBACCO USE 07/18/2016 GELLENDER DO, LARRY Wiley Ot M25.531 PAIN IN RIGHT WRIST 07/18/2016 GELLENDER DO, LARRY Wiley Ot E04.1 NONTOXIC SINGLE THYROID NODULE 07/18/2016 GELLENDER DO, LARRY Wiley Ot R22.1 LOCALIZED SWELLING, MASS AND LUMP, NECK 07/18/2016 GELLENDER DO, LARRY Wiley Ot M89.9 DISORDER OF BONE, UNSPECIFIED 07/18/2016 GELLENDER DO, LARRY Wiley Ot R22.1 LOCALIZED SWELLING, MASS AND LUMP, NECK 07/18/2016 GELLENDER DO, LARRY Wiley Ot R59.0 LOCALIZED ENLARGED LYMPH NODES 07/19/2016 GELLENDER DO, LARRY Wiley Ot M89.9 DISORDER OF BONE, UNSPECIFIED 07/19/2016 GELLENDER DO, LARRY Wiley Ot R22.1 LOCALIZED SWELLING, MASS AND LUMP, NECK 07/19/2016 GELLENDER DO, LARRY Wiley Ot R59.0 LOCALIZED ENLARGED LYMPH NODES 07/25/2016 GELLENDER DO, LARRY Wiley Ot M89.9 DISORDER OF BONE, UNSPECIFIED 07/25/2016 GELLENDER DO, LARRY Wiley Ot R22.1 LOCALIZED SWELLING, MASS AND LUMP, NECK 07/25/2016 GELLENDER DO, LARRY Wiley Ot R59.0 LOCALIZED ENLARGED LYMPH NODES 07/25/2016 GELLENDER DO, LARRY Wiley Ot M89.9 DISORDER OF BONE, UNSPECIFIED 07/25/2016 GELLENDER DO, LARRY Wiley Ot R22.1 LOCALIZED SWELLING, MASS AND LUMP, NECK 07/25/2016 GELLENDER DO, LARRY Wiley Ot R59.0 LOCALIZED ENLARGED LYMPH NODES 07/25/2016 GELLENDER DO, LARRY Wiley Ot M25.531 PAIN IN RIGHT WRIST 07/30/2016 GELLENDER DO, LARRY Wiley Ot M25.531 PAIN IN RIGHT WRIST 08/01/2016 GELLENDER DO, LARRY Saurabh Ot E04.1 NONTOXIC SINGLE THYROID NODULE 08/01/2016 GELLENDER DO, LARRY A Ot R22.1 LOCALIZED SWELLING, MASS AND LUMP, NECK 08/06/2016 GELLENDER DO, LARRY Wiley Ot E04.1 NONTOXIC SINGLE THYROID NODULE 08/06/2016 GELLENDER DO, LARRY A Ot R22.1 LOCALIZED SWELLING, MASS AND LUMP, NECK 08/09/2016 GELLENDER DO, LARRY Wiley Ot M89.9 DISORDER OF BONE, UNSPECIFIED 08/09/2016 GELLENDER DO, LARRY A Ot R22.1 LOCALIZED SWELLING, MASS AND LUMP, NECK 08/09/2016 GELLENDER DO, LARRY A Ot R59.0 LOCALIZED ENLARGED LYMPH NODES 08/14/2016 GELLENDER DO, LARRY A Ot M89.9 DISORDER OF BONE, UNSPECIFIED 08/14/2016 GELLENDER DO, LARRY A Ot R59.0 LOCALIZED ENLARGED LYMPH NODES 08/14/2016 GELLENDER DO, LARRY Wiley Ot M89.9 DISORDER OF BONE, UNSPECIFIED 08/14/2016 GELLENDER DO, LARRY A Ot R59.0 LOCALIZED ENLARGED LYMPH NODES 08/15/2016 GELLENDER DO, LARRY Wiley Ot R22.1 LOCALIZED SWELLING, MASS AND LUMP, NECK 08/15/2016 GELLENDER DO, LARRY A Ot M89.9 DISORDER OF BONE, UNSPECIFIED 08/15/2016 GELLENDER DO, LARRY A Ot R22.1 LOCALIZED SWELLING, MASS AND LUMP, NECK 08/15/2016 GELLENDER DO, LARRY A Ot R59.0 LOCALIZED ENLARGED LYMPH NODES 08/16/2016 RICHELLE FERRARI, BEAN Love Ot R59.0 LOCALIZED ENLARGED LYMPH NODES 08/16/2016 RICHELLE FERRARI, BEAN Love Ot Z01.818 ENCOUNTER FOR OTHER PREPROCEDURAL EXAMIN 08/16/2016 RICHELLE FERRARI, BEAN Love Ot Z11.2 ENCOUNTER FOR SCREENING FOR OTHER BACTER 08/19/2016 GELLENDER DO, LARRY Wiley Ot M89.9 DISORDER OF BONE, UNSPECIFIED 08/19/2016 GELLENDER DO, LARRY A Ot R59.0 LOCALIZED ENLARGED LYMPH NODES 08/21/2016 RICHELLE FERRARI, BEAN Love Ot E11.9 TYPE 2 DIABETES MELLITUS WITHOUT COMPLIC 08/21/2016 RICHELLE FERRARI, BEAN Love Ot E78.5 HYPERLIPIDEMIA, UNSPECIFIED 08/21/2016 BEAN PEOPLES MD Ot I10 ESSENTIAL (PRIMARY) HYPERTENSION 08/21/2016 BEAN PEOPLES MD Ot I25.10 ATHSCL HEART DISEASE OF [place] CORONARY 08/21/2016 BEAN PEOPLES MD Ot R59.0 LOCALIZED ENLARGED LYMPH NODES 08/21/2016 BEAN PEOPLES MD Ot Z87.891 PERSONAL HISTORY OF NICOTINE DEPENDENCE 08/22/2016 BEAN PEOPLES MD Ot E11.9 TYPE 2 DIABETES MELLITUS WITHOUT COMPLIC 08/22/2016 BEAN PEOPLES MD Ot E78.5 HYPERLIPIDEMIA, UNSPECIFIED 08/22/2016 BEAN PEOPLES MD Ot I10 ESSENTIAL (PRIMARY) HYPERTENSION 08/22/2016 BEAN PEOPLES MD Ot I25.10 ATHSCL HEART DISEASE OF [place] CORONARY 08/22/2016 BEAN PEOPLES MD Ot R59.0 LOCALIZED ENLARGED LYMPH NODES 08/22/2016 BEAN PEOPLES MD Ot Z87.891 PERSONAL HISTORY OF NICOTINE DEPENDENCE 08/26/2016 OLGA LIDIA GARCIA APRN Ot E11.9 TYPE 2 DIABETES MELLITUS WITHOUT COMPLIC 08/26/2016 OLGA LIDIA GARCIA APRN Ot I10 ESSENTIAL (PRIMARY) HYPERTENSION 08/26/2016 OLGA LIDIA GARCIA APRN Ot R22.42 LOCALIZED SWELLING, MASS AND LUMP, LEFT 08/26/2016 OLGA LIDIA GARCIA APRN Ot R59.0 LOCALIZED ENLARGED LYMPH NODES 08/26/2016 OLGA LIDIA GARCIA APRN Ot Z79.02 LEAD TANK MECHANIC (CURRENT) USE OF ANTITHROMBOTI 08/26/2016 OLGA LIDIA GARCIA APRN Ot Z79.84 LEAD TANK MECHANIC (CURRENT) USE OF ORAL HYPOGLYC 08/26/2016 OLGA LIDIA GARCIA APRN Ot Z79.899 OTHER INTERMEDIATE (CURRENT) DRUG THERAPY Procedures Code Description Performed By Performed On 45.43 ENDOSCOP DEST OF OTH LESION OR TISU OF L 06/04/2012 Results Test Result Range Comprehensive metabolic panel - 03/15/16 07:20 Serum or plasma sodium measurement (moles/volume) 140 mmol/ L 135-145 Serum or plasma potassium measurement (moles/volume) 4.2 mmol/L 3.6-5.0 Serum or plasma chloride measurement (moles/volume) 109 mmol /L 98-107 Carbon dioxide 21 mmol/L 21-32 Serum or plasma anion gap determination (moles/volume) 10 mmol/L 5-14 Serum or plasma urea nitrogen measurement (mass/volume) 13 mg/dL 7-18 Serum or plasma creatinine measurement (mass/volume) 0.77 mg /dL 0.60-1.30 Serum or plasma urea nitrogen/creatinine mass ratio 17 NRG Serum or plasma creatinine measurement with calculation of estimated glomerular filtration rate > NRG Serum or plasma glucose measurement (mass/volume) 105 mg/dL 70-105 Serum or plasma calcium measurement (mass/volume) 9.5 mg/dL 8.5-10.1 Serum or plasma total bilirubin measurement (mass/volume) 0.6 mg/dL 0.1-1.0 Serum or plasma alkaline phosphatase measurement (enzymatic activity/volume) 71 U/L 40-136 Serum or plasma aspartate aminotransferase measurement (enzymatic activity/ volume) 21 U/L 5-34 Serum or plasma alanine aminotransferase measurement (enzymatic activity/volume ) 36 U/L 0-55 Serum or plasma protein measurement (mass/volume) 6.5 g/dL 6.4-8.2 Serum or plasma albumin measurement (mass/volume) 4.3 g/dL 3.2-4.5 Lipid 1996 panel - 03/15/16 07:20 Serum or plasma triglyceride measurement (mass/volume) 155 mg/dL <150 Serum or plasma cholesterol measurement (mass/volume) 97 mg/ dL < 200 Serum or plasma cholesterol in HDL measurement (mass/volume) 34 mg/dL 40-60 Cholesterol in LDL [mass/volume] in serum or plasma by direct assay 37 mg/dL 1-129 Serum or plasma cholesterol in VLDL measurement (mass/volume) 31 mg/dL 5-40 Methicillin resistant Staphylococcus aureus (MRSA) screening culture - 11:42 Methicillin resistant Staphylococcus aureus (MRSA) screening culture NEG NRG Capillary blood glucose measurement by glucometer (mass/volume) - 08/21/16 11: 34 Capillary blood glucose measurement by glucometer (mass/volume) 100 mg/dL 70-110 Complete blood count (CBC) with automated white blood cell (WBC) differential - 08/24/16 21:55 Blood leukocytes automated count (number/volume) 7.1 10*3/ uL 4.3-11.0 Blood erythrocytes automated count (number/volume) 4.95 10*6 /uL 4.35-5.85 Venous blood hemoglobin measurement (mass/volume) 15.1 g/dL 13.3-17.7 Blood hematocrit (volume fraction) 44 % 40-54 Automated erythrocyte mean corpuscular volume 89 [foz_us] 80-99 Automated erythrocyte mean corpuscular hemoglobin (mass per erythrocyte) 31 pg 25-34 Automated erythrocyte mean corpuscular hemoglobin concentration measurement ( mass/volume) 34 g/dL 32-36 Automated erythrocyte distribution width ratio 12.9 % 10.0-14.5 Automated blood platelet count (count/volume) 263 10*3/uL 130-400 Automated blood platelet mean volume measurement 9.7 [foz_us ] 7.4-10.4 Automated blood neutrophils/100 leukocytes 59 % 42-75 Automated blood lymphocytes/100 leukocytes 23 % 12-44 Blood monocytes/100 leukocytes 10 % 0-12 Automated blood eosinophils/100 leukocytes 8 % 0-10 Automated blood basophils/100 leukocytes 0 % 0-10 Blood neutrophils automated count (number/volume) 4.2 10*3 1.8-7.8 Blood lymphocytes automated count (number/volume) 1.6 10*3 1.0-4.0 Blood monocytes automated count (number/volume) 0.7 10*3 0.0-1.0 Automated eosinophil count 0.6 10*3/uL 0.0-0.3 Automated blood basophil count (count/volume) 0.0 10*3/uL 0.0-0.1 Whole blood basic metabolic panel - 08/24/16 21:55 Serum or plasma sodium measurement (moles/volume) 141 mmol/ L 135-145 Serum or plasma potassium measurement (moles/volume) 4.2 mmol/L 3.6-5.0 Serum or plasma chloride measurement (moles/volume) 108 mmol /L 98-107 Carbon dioxide 22 mmol/L 21-32 Serum or plasma anion gap determination (moles/volume) 11 mmol/L 5-14 Serum or plasma urea nitrogen measurement (mass/volume) 16 mg/dL 7-18 Serum or plasma creatinine measurement (mass/volume) 0.91 mg /dL 0.60-1.30 Serum or plasma urea nitrogen/creatinine mass ratio 18 NRG Serum or plasma creatinine measurement with calculation of estimated glomerular filtration rate > NRG Serum or plasma glucose measurement (mass/volume) 118 mg/dL 70-105 Serum or plasma calcium measurement (mass/volume) 10.0 mg/ dL 8.5-10.1 Encounters ACCT No. Visit Date/Time Discharge Status Pt. Type Provider Facility Loc./Unit Complaint [id number] 08/24/2016 21:25:00 2016 22:58:00 DIS Outpatient OLGA LIDIA GARCIA APRN [facility] ER L LEG SWELLING [id number] 08/21/2016 11:22:00 2016 16:03:00 DIS Outpatient BEAN PEOPLES MD [facility] SDC LYMPHADENOTATHY [id number] 08/15/2016 11:29:00 2016 11:52:00 DIS Outpatient BEAN PEOPLES MD [facility] PREOP LYMPHADENOTATHY [id number] 06/15/2015 11:36:00 2014 23:59:59 CLS Outpatient VENKAT NELSON MD [facility] CARD PROSTATE CA [id number] 03/17/2015 07:07:00 2014 23:59:59 CLS Outpatient 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 [facility] LAB HYPERLIPIDEMIA [id number] 09/01/2014 07:04:00 2014 23:59:59 CLS Outpatient APRIL BARRON L LAY OUT MACHINE OPERATOR [facility] LAB CAD,HLP [id number] 05/17/2014 09:12:00 2013 23:59:59 CLS Outpatient LARRY KUO DO [facility] RAD THYROID NODULE RT SIDE [id number] 03/11/2014 07:01:00 2013 23:59:59 CLS Outpatient BAIAPRIL US L LAY OUT MACHINE OPERATOR [facility] LAB CAD,CAROTID ARTERIAL DISEASE ,HYPERLIPIDEMIA [id number] 08/02/2013 07:11:00 2013 23:59:59 CLS Outpatient BAIMAGEN APRIL L LAY OUT MACHINE OPERATOR [facility] LAB CAD,HYPERLIPIDEMIA [id number] 04/13/2013 07:43:00 2012 23:59:59 CLS Outpatient BAIMAGEN APRIL L LAY OUT MACHINE OPERATOR [facility] LAB HYPERLIPIDEMIA,STATIN TRX [id number] 03/05/2013 07:09:00 2012 23:59:59 CLS Outpatient APRIL BARRON [facility] LAB CAD,HYPERTENSION, HYPERLIPIDEMIA,STATIN [place] [id number] 12/31/2012 07:12:00 2012 23:59:59 CLS Outpatient VICTOR M FERRARI FACC, ADONAY ANDRES CCDS [facility] LAB CAD,STATIN TX, HYPERLIPIDEMIA [id number] 09/05/2016 15:35:00 PEN Preadmit ROXI DUNLAP [facility] ONC [id number] 09/03/2016 08:52:00 ACT Outpatient LARRY KUO DO [facility] RAD LYMPHOMA [id number] 08/13/2016 07:05:00 ACT Outpatient LARRY KUO DO [facility] CARD SCLEROTIC,LESION ON T4 AND T2 [id number] 08/12/2016 13:08:00 ACT Outpatient LARRY KUO DO [facility] RAD RIGHT SIDE OF NECK SWOLLEN [id number] 07/18/2016 08:14:00 ACT Outpatient LARRY KUO DO [facility] RAD COMPLICATED CYSTIC BESIUM [id number] 07/11/2016 10:39:00 ACT Outpatient LARRY KUO DO [facility] RAD CYST IN NECK [id number] 07/01/2016 11:52:00 ACT Outpatient LARRY KUO DO [facility] RAD PAIN IN RIGHT WRIST [id number] 05/07/2016 06:59:00 ACT Outpatient VICTOR M FERRARI FACC, ADONAY ANDRES CCDS [facility] CARD CAD,HLP,HTN,CAROTID ARTERIAL DISEASE [id number] 03/15/2016 07:14:00 ACT Outpatient APRIL BARRON [facility] LAB CAD,HYPERLIPIDEMIA [id number] 09/15/2015 07:14:00 ACT Outpatient APRIL BARRON [facility] LAB CAD,HLP [id number] 03/17/2015 07:07:00 Document Registration [id number] 03/17/2015 07:07:00 Document Registration [id number] 03/17/2015 07:07:00 Document Registration [id number] 03/17/2015 07:07:00 Document Registration [id number] 03/17/2015 07:07:00 Document Registration [id number] 03/17/2015 07:07:00 Document Registration [id number] 03/17/2015 07:07:00 Document Registration [id number] 03/17/2015 07:07:00 Document Registration [id number] 10/26/2012 07:43:00 Document Registration [id number] 10/05/2012 10:15:00 Document Registration [id number] 06/23/2012 11:38:00 Document Registration [id number] 06/04/2012 13:53:00 Document Registration [id number] 05/28/2012 10:32:00 Document Registration [id number] 05/25/2012 06:56:00 Document Registration [id number] 05/22/2012 08:15:00 Document Registration [id number] 04/16/2012 07:26:00 Document Registration [id number] 01/07/2011 07:33:00 Document Registration [id number] 12/06/2010 07:35:00 Document Registration [id number] 10/08/2010 07:50:00 Document Registration [id number] 10/08/2010 07:49:00 Document Registration [id number] 08/30/2010 07:43:00 Document Registration [id number] 08/02/2010 08:11:00 Document Registration [id number] 07/06/2010 12:09:00 Document Registration [id number] 04/12/2010 08:08:00 Document Registration [id number] 04/04/2010 16:27:00 Document Registration [id number] 03/26/2010 09:52:00 Document Registration [id number] 03/21/2010 15:49:00 Document Registration [id number] 12/12/2009 13:34:00 Document Registration
[2016-09-04] MEDS ORDERED: ROSU5TAB PO (13:51)
[2016-09-05] MEDS ORDERED: HYDR-3812 PO (14:02)
== END 2016-09-04 13:58 ==
LOC: PREOP 05:51
PROVIDERS: ATTEND Surgery
DX: Z01.818 Encounter for other preprocedural examination (principal); C85.90 Non-Hodgkin lymphoma, unspecified, unspecified site

== ENCOUNTER 2016-09-05 10:25 | Day surgery (SDC) | payer MEDICARE, OTHER, BC ==
[~2016-09-05] VITALS: Ht 172.7 cm; Wt 79.4 kg
[~2016-09-05 10:25] MED LIST changes: +ROSU5TAB PO
[2016-09-05] MEDS ORDERED: ceFAZolin 1 GM/NS 50 ML IVPB IV ONE ×2 (11:00)
[2016-09-05] MEDS ORDERED: HEParin (CENTRAL IV FLUSH) 500 UNIT/5 ML SYR ONE ×2 (11:13→13:18)
[2016-09-05] MEDS ORDERED: BUP/EPI 0.25% 1:200,000 (MARCAINE) 30 ML VIAL ONE (11:13)
[2016-09-05 11:35] VITALS: BP 143/82
[2016-09-05] MEDS ORDERED: MIDAZOLAM 2 MG/2 ML (VERSED) VIAL IV ONE (11:45)
[2016-09-05] MEDS ORDERED: MIDAZOLAM 2 MG/2 ML (VERSED) VIAL ONE (11:47)
[2016-09-05] MEDS: LACTATED RINGERS 1,000 ML IV PRN ×2 (11:51→13:30)
--- NOTE | 2016-09-05 12:43 | Progress Note-Pre Operative ---
Pre-Operative Progress Note H&P Reviewed The H&P was reviewed, patient examined and no changes noted. Date H&P Reviewed: Sep 05, 2016 Time H&P Reviewed: 12:42 Pre-Operative Diagnosis: Lymphoma BEAN PEOPLES MD Sep 05, 2016 12:43 pm
[2016-09-05] MEDS ORDERED: MIDAZOLAM 10 MG/2 ML (VERSED) VIAL ONE (12:44)
[2016-09-05] MEDS ORDERED: LACTATED RINGERS 1,000 ML IV ONE ×2 (12:44→13:22)
[2016-09-05] MEDS ORDERED: ONDANSETRON 4 MG/2 ML (SDV) Z0FRAN ONE (12:44)
[2016-09-05] MEDS ORDERED: fentaNYL INJECTION 100 MCG/2 ML AMP ONE (12:45)
[2016-09-05] MEDS ORDERED: SEVOFLURANE (ULTANE) 15 ML INHAL SOLN ONE ×2 (13:23→13:46)
[2016-09-05] MEDS ORDERED: PROPOFOL INJECTION 50 ML IV ONE (13:23)
[2016-09-05] MEDS ORDERED: morphine INJ 10 MG/ML 1ML (SYR OR VIAL) IVP PRN (14:00)
[2016-09-05] MEDS ORDERED: MEPERIDINE (DEMEROL) INJ 50 MG/ML IVP PRN (14:00)
[2016-09-05] MEDS ORDERED: ONDANSETRON 4 MG/2 ML (SDV) Z0FRAN IVP PRN (14:00)
[2016-09-05] MEDS ORDERED: HYDR-3812 PO ×2 (14:02)
--- NOTE | 2016-09-05 14:02 | Progress Note-Post Operative ---
Post-Operative Progess Note Pre-Operative Diagnosis Lymphoma Post-Operative Diagnosis Same Post-Op Procedure Note Date of Procedure: Sep 05, 2016 Name of Procedure: Byxfhl-c-Zllq placement Anesthesia Type Gen. Estimated blood loss (mL): Minimal BEAN PEOPLES MD Sep 05, 2016 2:02 pm
--- NOTE | 2016-09-05 14:04 | Discharge Inst-Simple/Standard ---
Discharge Inst-Standard Discharge Medications New, Converted or Re-Newed RX: RX on Chart Patient Instructions/Follow Up Plan of Care/Instructions/FU: Dressings off in 48 hours. Activity as Tolerated: Yes Discharge Diet: No Restrictions BEAN PEOPLES MD Sep 05, 2016 2:04 pm
[2016-09-05 14:45] VITALS: BP 129/98
[2016-09-05 15:15] VITALS: BP 138/75
--- NOTE | 2016-09-05 17:53 | Diagnostic Imaging Report ---
CLINICAL INDICATION: Cqriae-v-Fzmd placement. EXAM: Portable chest x-ray upright view. COMPARISON: Chest x-ray dated 08/12/2016. FINDINGS: Interval placement of Gogakm-x-Ulyi seen overlying left chest with tip in the cavoatrial junction region. There is no pneumothorax. There is bibasilar atelectasis. There is no pleural effusion. Otherwise, lungs are clear. Pulmonary vasculature and cardiac silhouette is within normal limits. There are hypertrophic spurs seen throughout the spine. IMPRESSION: 1: Interval placement of Baxcct-e-Vmwe with tip in the cavoatrial junction region. There is no evidence of pneumothorax. 2: Mild bibasilar atelectasis. Dictated by: Dictated on workstation # [id number]
--- NOTE | 2016-09-05 18:59 | Diagnostic Imaging Report ---
INDICATION: Surgery. FINDINGS: Fluoroscopy was visualized. Total fluoroscopy time of 24.2 seconds during central catheter placement. IMPRESSION: Fluoroscopy utilized during central catheter placement. Dictated by: Dictated on workstation # [id number]
--- NOTE | 2016-09-08 06:41 | OPERATIVE REPORT ---
PROCEDURE PHYSICIAN: BEAN PEOPLES DATE OF PROCEDURE: 09/05/2016 DIAGNOSIS: Lymphoma. OPERATION: [id number] placement. SURGEON: Jakub. ANESTHESIA: General anesthesia. BLOOD LOSS: Minimal. FLUIDS: 800 mL of crystalloids. TYPE OF WOUND: Type I (clean wound). INDICATION FOR THE PROCEDURE: This gentleman is due to start systemic hemotherapy to manage the lymphoma. Therefore, placing an [id number] was felt to be appropriate. Informed consent was obtained after reviewing the operative details and complications of hematoma, bacteremia, and malfunction of the catheter, requiring replacement. DESCRIPTION OF PROCEDURE: He was placed supine on the operating table and general anesthesia induced using a laryngeal mask airway. Ancef was administered intravenously as prophylaxis against wound infection. His neck and upper chest were prepped and draped in the usual sterile manner. Initially, I accessed the left internal jugular vein using an ultrasound probe and advanced the guidewire into the innominate vein. Despite multiple attempts, the wire could not be advanced through the vena cava and therefore I elected to use the subclavian approach. The left subclavian vein was accessed and the guidewire eventually advanced into the superior vena cava. The Jason catheter associated with the [id number] was then advanced using a peel-away sheath, under fluoroscopy. The tip of the catheter was pulled back to the superior vena cava and connected to the [id number]-p-Iico, that had been primed with heparinized saline. The port was then secured to the pectoralis muscle using 2-0 Prolene sutures. The incision was closed using 3-0 Vicryl for the subcutaneous tissue and 4-0 Vicryl for skin, in a subcuticular fashion. Pre-emptive analgesia was established using 0.25% Marcaine with epinephrine. He tolerated the procedure well and was extubated in the operative room and taken to the recovery room in a stable condition. [place], sponges, and instruments were correct at the end of the operation. Job ID: [id number] Dictated Date: 09/05/2016 14:33:37 Branch Examiner Date: 09/08/2016 06:34:17 / oralia
== END 2016-09-05 15:30 | disposition home or self-care (01) ==
LOC: SDC 10:25
PROVIDERS: ATTEND Surgery
DX: C85.91 Non-Hodgkin lymphoma, unspecified, lymph nodes of head, face, and neck (principal); E11.9 Type 2 diabetes mellitus without complications; Z79.84 Long term (current) use of oral hypoglycemic drugs
CPT/HCPCS: 71010; 82962; 87081

== ENCOUNTER → 2016-09-06 | Outpatient (CLI) | payer MEDICARE, OTHER ==
[~2016-09-06] MED LIST changes: +AMOX500C2 PO; +CLIN150C17 PO; +PRD20T PO; +ROSU20TA28 PO
--- OUTSIDE RECORDS SUMMARY | 2016-09-06 07:46 | XMS REPORT | Continuity of Care Document ---
Author Author [facility] Organization [facility] Address Unknown Phone Unavailable Allergies Active Description Code Type Severity Reaction Onset Reported/Identified Relationship to Patient Clinical Status Yes sulfamethoxazole [id number] Drug Allergy Unknown N/A 10/07/2008 Yes trimethoprim [id number] Drug Allergy Unknown N/A 10/07/2008 Medications Problems [...] NOS 11/28/2010 Ot 414.01 CORONARY ATHEROSCLEROSIS OF [place] CORON 11/28/2010 Ot 415.19 OTH PULMON EMBOLISM/INFARCT 05/25/2012 Ot 211.4 BENIGN NEOPL RECTUM/ANUS 05/25/2012 Ot 250.00 DIAB DRISS WO COMPL, TYPE II OR UNSPEC TY 05/25/2012 Ot 272.0 PURE HYPERCHOLESTEROLEM 05/25/2012 Ot 401.9 HYPERTENSION NOS 05/25/2012 Ot 414.01 CORONARY ATHEROSCLEROSIS OF [place] CORON 05/25/2012 Ot 562.10 DIVERTICULOSIS COLON (W/O MENT OF HEMORR 05/25/2012 Ot V45.82 PERCUTANEOUS TRANSLUM CORON ANGIOPLASTY 05/25/2012 Ot V58.63 LONG-TERM(CURRENT)USE OF ANTIPLATELET/AN 05/25/2012 Ot V58.69 OTH MED,LT,CURRENT USE 05/25/2012 Ot V76.51 SCREEN MAL NEOP-COLON 06/05/2012 Ot 250.00 DIAB DRISS WO COMPL, TYPE II OR UNSPEC TY 06/05/2012 Ot 272.4 HYPERLIPIDEMIA NEC/NOS 06/05/2012 Ot 401.9 HYPERTENSION NOS 06/05/2012 Ot 414.01 CORONARY ATHEROSCLEROSIS OF [place] CORON 06/05/2012 Ot 562.10 DIVERTICULOSIS COLON (W/O [...] CCDS Ot 414.01 03/17/[address] [facility], ALI FACP CCDS Ot V58.69 03/17/2015 BAIMA, APRIL L TRAUMA DIRECTOR Ot 272.4 03/17/2015 BAIMA, APRIL L TRAUMA DIRECTOR Ot 401.9 03/17/2015 BAIMA, APRIL L TRAUMA DIRECTOR Ot 414.01 03/17/2015 BAIMA, APRIL L TRAUMA DIRECTOR Ot 272.4 03/17/2015 BAIMA, APRIL L TRAUMA DIRECTOR Ot V58.69 03/17/2015 BAIMA, APRIL L TRAUMA DIRECTOR Ot 272.4 03/17/2015 BAIMA, APRIL L TRAUMA DIRECTOR Ot 414.00 03/17/2015 BAIMA, APRIL L TRAUMA DIRECTOR Ot 272.4 03/17/2015 BAIMA, APRIL L TRAUMA DIRECTOR Ot 414.00 03/17/2015 BAIMA, APRIL L TRAUMA DIRECTOR Ot 447.9 03/17/2015 LARRY KUO DO Ot 241.0 03/17/2015 BAIMA, APRIL L TRAUMA DIRECTOR Ot 272.4 03/17/2015 BAIMA, APRIL L TRAUMA DIRECTOR Ot 414.00 03/21/2015 BAIMA, APRIL L TRAUMA DIRECTOR Ot 272.4 03/24/2015 BAIMA, APRIL L TRAUMA DIRECTOR Ot 272.4 04/06/2015 BAIMA, APRIL L TRAUMA DIRECTOR Ot 272.4 07/05/2015 VENKAT NELSON MD Ot [...] FACP CCDS Ot V58.69 09/15/2015 APRIL BARRON TRAUMA DIRECTOR Ot 272.4 09/15/2015 APRIL BARRON TRAUMA DIRECTOR Ot 401.9 09/15/2015 BAIMA, APRIL L TRAUMA DIRECTOR Ot 414.01 09/15/2015 BAIMA, APRIL L TRAUMA DIRECTOR Ot 272.4 09/15/2015 BAIMA, APRIL L TRAUMA DIRECTOR Ot V58.69 09/15/2015 BAIMA, APRIL L TRAUMA DIRECTOR Ot 272.4 09/15/2015 BAIMA, APRIL L TRAUMA DIRECTOR Ot 414.00 09/15/2015 BAIMA, APRIL L TRAUMA DIRECTOR Ot 272.4 09/15/2015 BAIMA, APRIL L TRAUMA DIRECTOR Ot 414.00 09/15/2015 BAIMA, APRIL L TRAUMA DIRECTOR Ot 447.9 09/15/2015 LARRY KUO DO A Ot 241.0 09/15/2015 BAIMA, APRIL L TRAUMA DIRECTOR Ot 272.4 09/15/2015 BAIMA, APRIL L TRAUMA DIRECTOR Ot 414.00 09/15/2015 BAIMA, APRIL L TRAUMA DIRECTOR Ot 272.4 09/15/2015 VENKAT NELSON MD Ot C61 10/09/2015 BAIMA, APRIL L TRAUMA DIRECTOR Ot E78.5 10/09/2015 BAIMA, APRIL L TRAUMA DIRECTOR Ot I25.10 03/15/2016 Ot 272.4 HYPERLIPIDEMIA NEC/NOS 03/15/2016 Ot 401.9 HYPERTENSION NOS 03/15/2016 Ot 414.01 CORONARY ATHEROSCLEROSIS OF [place] CORON 03/15/2016 Ot V58.69 OTH MED,LT,CURRENT USE 03/15/2016 Ot 272.4 HYPERLIPIDEMIA NEC/NOS 03/15/2016 Ot 401.9 HYPERTENSION NOS 03/15/2016 Ot 414.01 CORONARY ATHEROSCLEROSIS OF [place] CORON 03/15/2016 Ot 415.19 OTH PULMON EMBOLISM/INFARCT [...] FACP CCDS Ot 414.01 CORONARY ATHEROSCLEROSIS OF [place] CORON 03/15/2016 VICTOR M FERRARI FACC, ALI FACP CCDS Ot V58.69 OTH MED,LT,CURRENT USE 03/15/2016 BAIMA, APRIL L TRAUMA DIRECTOR Ot 272.4 HYPERLIPIDEMIA NEC/NOS 03/15/2016 BAIMA, APRIL L TRAUMA DIRECTOR Ot 401.9 HYPERTENSION NOS 03/15/2016 BAIMA, APRIL L TRAUMA DIRECTOR Ot 414.01 CORONARY ATHEROSCLEROSIS OF [place] CORON 03/15/2016 BAIMA, APRIL L TRAUMA DIRECTOR Ot 272.4 HYPERLIPIDEMIA NEC/NOS 03/15/2016 BAIMA, APRIL L TRAUMA DIRECTOR Ot V58.69 OTH MED,LT,CURRENT USE 03/15/2016 BAIMA, APRIL L TRAUMA DIRECTOR Ot 272.4 HYPERLIPIDEMIA NEC/NOS 03/15/2016 BAIMA, APRIL L TRAUMA DIRECTOR Ot 414.00 CORON ATHEROSCLER NOS TYPE VESSEL, NATIV 03/15/2016 BAIMA, APRIL L TRAUMA DIRECTOR Ot 272.4 HYPERLIPIDEMIA NEC/NOS 03/15/2016 BAIMA, APRIL L TRAUMA DIRECTOR Ot 414.00 CORON ATHEROSCLER NOS TYPE VESSEL, NATIV 03/15/2016 BAIMA, APRIL L TRAUMA DIRECTOR Ot 447.9 ARTERIAL DISEASE NOS 03/15/2016 LARRY KUO DO Ot 241.0 NONTOX UNINODULAR GOITER 03/15/2016 BAIMA, APRIL L TRAUMA DIRECTOR Ot 272.4 HYPERLIPIDEMIA NEC/NOS 03/15/2016 BAIMA, APRIL L TRAUMA DIRECTOR Ot 414.00 CORON ATHEROSCLER NOS TYPE VESSEL, NATIV 03/15/2016 BAIMA, APRIL L TRAUMA DIRECTOR Ot 272.4 HYPERLIPIDEMIA NEC/NOS 03/15/2016 LESLIE FERRARI, VENKAT Wiley Ot C61 MALIGNANT NEOPLASM OF PROST[place] 03/15/2016 BAIMA, APRIL L TRAUMA DIRECTOR Ot E78.5 HYPERLIPIDEMIA, UNSPECIFIED 03/15/2016 BAIMA, APRIL L TRAUMA DIRECTOR Ot I25.10 ATHSCL HEART DISEASE OF [place] CORONARY 03/15/2016 BAIMA, APRIL L TRAUMA DIRECTOR Ot I25.10 ATHSCL HEART DISEASE OF [place] CORONARY 03/19/2016 BAIMA, APRIL L TRAUMA DIRECTOR Ot E78.5 HYPERLIPIDEMIA, UNSPECIFIED 03/19/2016 BAIMA, APRIL L TRAUMA DIRECTOR Ot I25.10 ATHSCL HEART DISEASE OF [place] CORONARY 04/05/2016 BAIMA, APRIL L TRAUMA DIRECTOR Ot E78.5 HYPERLIPIDEMIA, UNSPECIFIED 04/05/2016 BAIMA, APRIL L TRAUMA DIRECTOR Ot I25.10 ATHSCL HEART DISEASE OF [place] CORONARY 05/07/2016 Ot 272.4 HYPERLIPIDEMIA NEC/NOS 05/07/2016 Ot 401.9 HYPERTENSION NOS 05/07/2016 Ot 414.01 CORONARY ATHEROSCLEROSIS OF [place] CORON 05/07/2016 Ot 415.19 OTH PULMON EMBOLISM/INFARCT [...] FACShekhar CCDS Ot 414.01 CORONARY ATHEROSCLEROSIS OF [place] CORON 05/07/2016 VICTOR M FERRARI FACC, ALI FACShekhar CCDS Ot V58.69 OTH MED,LT,CURRENT USE 05/07/2016 BAIMA, APRIL L TRAUMA DIRECTOR Ot 272.4 HYPERLIPIDEMIA NEC/NOS 05/07/2016 BAIMA, APRIL L TRAUMA DIRECTOR Ot 401.9 HYPERTENSION NOS 05/07/2016 BAIMA, APRIL L TRAUMA DIRECTOR Ot 414.01 CORONARY ATHEROSCLEROSIS OF [place] CORON 05/07/2016 BAIMA, APRIL L TRAUMA DIRECTOR Ot 272.4 HYPERLIPIDEMIA NEC/NOS 05/07/2016 BAIMA, APRIL L TRAUMA DIRECTOR Ot V58.69 OTH MED,LT,CURRENT USE 05/07/2016 BAIMA, APRIL L TRAUMA DIRECTOR Ot 272.4 HYPERLIPIDEMIA NEC/NOS 05/07/2016 BAIMA, APRIL L TRAUMA DIRECTOR Ot 414.00 CORON ATHEROSCLER NOS TYPE VESSEL, NATIV 05/07/2016 BAIMA, APRIL L TRAUMA DIRECTOR Ot 272.4 HYPERLIPIDEMIA NEC/NOS 05/07/2016 BAIAPRIL US L TRAUMA DIRECTOR Ot 414.00 CORON ATHEROSCLER NOS TYPE VESSEL, NATIV 05/07/2016 BAIMA APRIL L TRAUMA DIRECTOR Ot 447.9 ARTERIAL DISEASE NOS 05/07/2016 LARRY KUO DO Ot 241.0 NONTOX UNINODULAR GOITER 05/07/2016 BAIMAAPRIL L TRAUMA DIRECTOR Ot 272.4 HYPERLIPIDEMIA NEC/NOS 05/07/2016 BAIMAAPRIL L TRAUMA DIRECTOR Ot 414.00 CORON ATHEROSCLER NOS TYPE VESSEL, NATIV 05/07/2016 BAIMA, APRIL L TRAUMA DIRECTOR Ot 272.4 HYPERLIPIDEMIA NEC/NOS 05/07/2016 LESLIE FERRARI, VENKAT Wiley Ot C61 MALIGNANT NEOPLASM OF [place] 05/07/2016 BAIMA, APRIL L TRAUMA DIRECTOR Ot E78.5 HYPERLIPIDEMIA, UNSPECIFIED 05/07/2016 BAIMA, APRIL L TRAUMA DIRECTOR Ot I25.10 ATHSCL HEART DISEASE OF [place] CORONARY 05/07/2016 KASANDRAAPRIL US L TRAUMA DIRECTOR Ot E78.5 HYPERLIPIDEMIA, UNSPECIFIED 05/07/2016 BAIMA, APRIL L TRAUMA DIRECTOR Ot I25.10 ATHSCL HEART DISEASE OF [place] CORONARY 05/28/2016 VI[facility] M F[facility] FACC, ADONAY FACP CCDS Ot E78.4 OTHER HYPERLIPIDEMIA 05/28/2016 VICTOR M FERRARI FACC, ADONAY FACP CCDS Ot I10 ESSENTIAL (PRIMARY) HYPERTENSION 05/28/2016 VICTOR M FERRARI FACC, ALI FACP CCDS Ot I25.10 ATHSCL HEART DISEASE OF [place] CORONARY 05/28/2016 VICTOR M FERRARI FACC, ADONAY [...] CCDS Ot I25.10 ATHSCL HEART DISEASE OF [place] CORONARY 05/31/2016 VICTOR M FERRARI FACC, ADONAY [...] ANDRES CCDS Ot 414.01 CORONARY ATHEROSCLEROSIS OF [place] CORON 07/18/2016 VICTOR M FERRARI FACC, ADONAY ANDRES CCDS Ot V58.69 OTH MED,LT,CURRENT USE 07/18/2016 BAIMA, APRIL L TRAUMA DIRECTOR Ot 272.4 HYPERLIPIDEMIA NEC/NOS 07/18/2016 BAIMA, APRIL L TRAUMA DIRECTOR Ot 401.9 HYPERTENSION NOS 07/18/2016 BAIMA, APRIL L TRAUMA DIRECTOR Ot 414.01 CORONARY ATHEROSCLEROSIS OF [place] CORON 07/18/2016 BAIMA, APRIL L TRAUMA DIRECTOR Ot 272.4 HYPERLIPIDEMIA NEC/NOS 07/18/2016 BAIMA, APRIL L TRAUMA DIRECTOR Ot V58.69 OTH MED,LT,CURRENT USE 07/18/2016 BAIMA, APRIL L TRAUMA DIRECTOR Ot 272.4 HYPERLIPIDEMIA NEC/NOS 07/18/2016 BAIMA, APRIL L TRAUMA DIRECTOR Ot 414.00 CORON ATHEROSCLER NOS TYPE VESSEL, NATIV 07/18/2016 BAIMA, APIRL L TRAUMA DIRECTOR Ot 272.4 HYPERLIPIDEMIA NEC/NOS 07/18/2016 BAIMA, APRIL L TRAUMA DIRECTOR Ot 414.00 CORON ATHEROSCLER NOS TYPE VESSEL, NATIV 07/18/2016 BAIMA, APRIL L TRAUMA DIRECTOR Ot 447.9 ARTERIAL DISEASE NOS 07/18/2016 SHIELA DOLARRY A Ot 241.0 NONTOX UNINODULAR GOITER 07/18/2016 BAIMA, APRIL L TRAUMA DIRECTOR Ot 272.4 HYPERLIPIDEMIA NEC/NOS 07/18/2016 BAIMA, APRIL L TRAUMA DIRECTOR Ot 414.00 CORON ATHEROSCLER NOS TYPE VESSEL, NATIV 07/18/2016 BAIMA, APRIL L TRAUMA DIRECTOR Ot 272.4 HYPERLIPIDEMIA NEC/NOS 07/18/2016 VENKAT NELSON MD Ot C61 MALIGNANT NEOPLASM OF [place] 07/18/2016 BAIMA, APRIL L TRAUMA DIRECTOR Ot E78.5 HYPERLIPIDEMIA, UNSPECIFIED 07/18/2016 BAIMA, APRIL L TRAUMA DIRECTOR Ot I25.10 ATHSCL HEART DISEASE OF [place] CORONARY 07/18/2016 BAIMA, APRIL L TRAUMA DIRECTOR Ot E78.5 HYPERLIPIDEMIA, UNSPECIFIED 07/18/2016 BAIMA, APRIL L TRAUMA DIRECTOR Ot I25.10 ATHSCL HEART DISEASE OF [place] CORONARY 07/18/2016 ADONAY DOW MD, FACC, FACP CCDS Ot E78.4 OTHER HYPERLIPIDEMIA 07/18/2016 [facility] I10 ESSENTIAL (PRIMARY) HYPERTENSION 07/18/2016 VICTOR M FERRARI FACC, ADONAY [facility] CCDS Ot I25.10 ATHSCL HEART DISEASE OF [place] CORONARY 07/18/2016 VICTOR M FERRARI FACC, ADONAY [facility] CCDS Ot I65.23 OCCLUSION AND STENOSIS OF [...] IN RIGHT WRIST 08/01/2016 GELLENDER DO, LARRY Wiley Ot E04.1 NONTOXIC SINGLE THYROID NODULE 08/01/2016 [...] LOCALIZED SWELLING, MASS AND LUMP, NECK 08/15/2016 RICHELLE FERRARI, BEAN Love Ot R59.0 LOCALIZED ENLARGED LYMPH NODES 08/15/2016 RICHELLE FERRARI, BEAN Love Ot Z01.818 ENCOUNTER FOR OTHER PREPROCEDURAL EXAMIN 08/15/2016 RICHELLE FERRARI, BEAN Love Ot Z11.2 ENCOUNTER FOR SCREENING FOR OTHER BACTER 08/15/2016 ARLENLENDER DO, LARRY A Ot M89.9 DISORDER OF [...] FOR OTHER BACTER 08/19/2016 GELLENDER DO, LARRY A Ot M89.9 DISORDER OF BONE, UNSPECIFIED 08/19/2016 SHIELA CARTER, LARRY A Ot R59.0 LOCALIZED ENLARGED LYMPH NODES 08/21/2016 RICHELLE FERRARI, BEAN Love Ot E11.9 TYPE 2 DIABETES MELLITUS WITHOUT COMPLIC 08/21/2016 RICHELLE FERRARI, BEAN Love Ot E78.5 HYPERLIPIDEMIA, UNSPECIFIED 08/21/2016 BEAN PEOPLES MD Ot I10 ESSENTIAL (PRIMARY) HYPERTENSION 08/21/2016 RICHELLE FERRARI, BEAN Love Ot I25.10 ATHSCL HEART DISEASE OF [place] CORONARY 08/21/2016 RICHELLE FERRARI, BEAN Love Ot R59.0 LOCALIZED ENLARGED LYMPH NODES 08/21/2016 RICHELLE FERRARI, BEAN Love Ot Z87.891 PERSONAL HISTORY OF NICOTINE DEPENDENCE 08/22/2016 BEAN PEOPLES MD Ot E11.9 TYPE 2 DIABETES MELLITUS WITHOUT COMPLIC 08/22/2016 BEAN PEOPLES MD Ot E78.5 HYPERLIPIDEMIA, UNSPECIFIED 08/22/2016 BEAN PEOPLES MD Ot I10 ESSENTIAL (PRIMARY) HYPERTENSION 08/22/2016 RICHELLE FERRARI, BEAN Love Ot I25.10 ATHSCL HEART DISEASE OF [place] CORONARY 08/22/2016 BEAN PEOPLES MD Ot R59.0 LOCALIZED ENLARGED LYMPH NODES 08/22/2016 BEAN PEOPLES MD Ot Z87.891 PERSONAL HISTORY OF NICOTINE DEPENDENCE 08/24/2016 OLGA LIDIA GARCIA APRN Ot E11.9 TYPE 2 DIABETES MELLITUS WITHOUT COMPLIC 08/24/2016 OLGA LIDIA GARCIA YARDING AND FOLDING MACHINE OPERATOR Ot I10 ESSENTIAL (PRIMARY) HYPERTENSION 08/24/2016 OLGA LIDIA GARCIA APRN Ot R22.42 LOCALIZED SWELLING, MASS AND LUMP, LEFT 08/24/2016 OLGA LIDIA GARCIA APRN Ot R59.0 LOCALIZED ENLARGED LYMPH NODES 08/24/2016 OLGA LIDIA GARCIA APRN Ot Z79.02 PRISON (CURRENT) USE OF ANTITHROMBOTI 08/24/2016 OLGA LIDIA GARCIA APRN Ot Z79.84 STOVE INSTALLER (CURRENT) USE OF ORAL HYPOGLYC 08/24/2016 OLGA LIDIA GARCIA APRN Ot Z79.899 OTHER PRISON (CURRENT) DRUG THERAPY 08/26/2016 OLGA LIDIA GARCIA APRN Ot E11.9 TYPE 2 DIABETES MELLITUS WITHOUT COMPLIC 08/26/2016 OLGA LIDIA GARCIA YARDING AND FOLDING MACHINE OPERATOR Ot I10 ESSENTIAL (PRIMARY) HYPERTENSION 08/26/2016 OLGA LIDIA GARCIA YARDING AND FOLDING MACHINE OPERATOR Ot R22.42 LOCALIZED SWELLING, MASS AND LUMP, LEFT 08/26/2016 OLGA LIDIA GARCIA YARDING AND FOLDING MACHINE OPERATOR Ot R59.0 LOCALIZED ENLARGED LYMPH NODES 08/26/2016 OLGA LIDIA GARCIA YARDING AND FOLDING MACHINE OPERATOR Ot Z79.02 PRISON (CURRENT) USE OF ANTITHROMBOTI 08/26/2016 OLGA LIDIA GARCIA YARDING AND FOLDING MACHINE OPERATOR Ot Z79.84 PRISON (CURRENT) USE OF ORAL HYPOGLYC 08/26/2016 OLGA LIDIA GARCIA YARDING AND FOLDING MACHINE OPERATOR Ot Z79.899 OTHER STOVE INSTALLER (CURRENT) DRUG THERAPY 09/05/2016 RICHELLE FERRARI, BEAN Love Ot E11.9 TYPE 2 DIABETES MELLITUS WITHOUT COMPLIC 09/05/2016 RICHELLE FERRARI, BEAN Love Ot E78.5 HYPERLIPIDEMIA, UNSPECIFIED 09/05/2016 RICHELLE FERRARI, BEAN Love Ot I10 ESSENTIAL (PRIMARY) HYPERTENSION 09/05/2016 RICHELLE FERRARI, BEAN Love Ot I25.10 ATHSCL HEART DISEASE OF [place] CORONARY 09/05/2016 RICHELLE FERRARI, BEAN Love Ot R59.0 LOCALIZED ENLARGED LYMPH NODES 09/05/2016 RICHELLE FERRARI, BEAN Love Ot Z87.891 PERSONAL HISTORY OF NICOTINE DEPENDENCE 09/05/2016 Ot 272.4 HYPERLIPIDEMIA NEC/NOS 09/05/2016 Ot 401.9 HYPERTENSION NOS 09/05/2016 Ot 414.00 CORON ATHEROSCLER NOS TYPE VESSEL, NATIV 09/05/2016 Ot V58.69 OTH MED,LT,CURRENT USE 09/05/2016 Ot 272.4 HYPERLIPIDEMIA NEC/NOS 09/05/2016 Ot 401.9 HYPERTENSION NOS 09/05/2016 Ot V58.69 OTH MED,LT,CURRENT USE 09/05/2016 Ot V72.84 EXAM PRE-OPERATIVE NOS 09/05/2016 Ot 272.4 HYPERLIPIDEMIA NEC/NOS 09/05/2016 Ot 414.00 CORON ATHEROSCLER NOS TYPE VESSEL, NATIV 09/05/2016 Ot V58.69 OTH MED,LT,CURRENT USE 09/05/2016 Ot 241.0 NONTOX UNINODULAR GOITER 09/05/2016 Ot 240.9 GOITER NOS 09/05/2016 Ot 241.0 NONTOX UNINODULAR GOITER 09/05/2016 Ot 272.4 HYPERLIPIDEMIA NEC/NOS 09/05/2016 Ot 401.9 HYPERTENSION NOS 09/05/2016 Ot 414.00 CORON ATHEROSCLER NOS TYPE VESSEL, NATIV 09/05/2016 Ot V58.69 OTH MED,LT,CURRENT USE 09/05/2016 Ot 414.00 CORON ATHEROSCLER NOS TYPE VESSEL, NATIV 09/05/2016 Ot V45.82 PERCUTANEOUS TRANSLUM CORON ANGIOPLASTY 09/05/2016 VICTOR M [facility]ACC, [facility] Ot 272.4 HYPERLIPIDEMIA NEC/NOS 09/05/2016 VICTOR M FERRARI FACC, ALI FACP CCDS Ot 414.01 CORONARY ATHEROSCLEROSIS OF [place] CORON 09/05/2016 VICTOR M FERRARI FACC, ALI [facility] CCDS Ot V58.69 OTH MED,LT,CURRENT USE 09/05/2016 BAIMA, APRIL L TRAUMA DIRECTOR Ot 272.4 HYPERLIPIDEMIA NEC/NOS 09/05/2016 BAIMA, APRIL L TRAUMA DIRECTOR Ot 401.9 HYPERTENSION NOS 09/05/2016 BAIMA, APRIL L TRAUMA DIRECTOR Ot 414.01 CORONARY ATHEROSCLEROSIS OF [place] CORON 09/05/2016 BAIMA, APRIL L TRAUMA DIRECTOR Ot 272.4 HYPERLIPIDEMIA NEC/NOS 09/05/2016 BAIMA, APRIL L TRAUMA DIRECTOR Ot V58.69 OTH MED,LT,CURRENT USE 09/05/2016 BAIMA, APRIL L TRAUMA DIRECTOR Ot 272.4 HYPERLIPIDEMIA NEC/NOS 09/05/2016 BAIMA, APRIL L TRAUMA DIRECTOR Ot 414.00 CORON ATHEROSCLER NOS TYPE VESSEL, NATIV 09/05/2016 BAIMA, APRIL L TRAUMA DIRECTOR Ot 272.4 HYPERLIPIDEMIA NEC/NOS 09/05/2016 BAIMA, APRIL L TRAUMA DIRECTOR Ot 414.00 CORON ATHEROSCLER NOS TYPE VESSEL, NATIV 09/05/2016 BAIMA, APRIL L TRAUMA DIRECTOR Ot 447.9 ARTERIAL DISEASE NOS 09/05/2016 LARRY KUO DO Ot 241.0 NONTOX UNINODULAR GOITER 09/05/2016 BAIMA, APRIL L TRAUMA DIRECTOR Ot 272.4 HYPERLIPIDEMIA NEC/NOS 09/05/2016 BAIMA, APRIL L TRAUMA DIRECTOR Ot 414.00 CORON ATHEROSCLER NOS TYPE VESSEL, NATIV 09/05/2016 BAIMA, APRIL L TRAUMA DIRECTOR Ot 272.4 HYPERLIPIDEMIA NEC/NOS 09/05/2016 VENKAT NELSON MD Ot C61 MALIGNANT NEOPLASM OF PROSTATE 09/05/2016 BAIMA, APRIL L TRAUMA DIRECTOR Ot E78.5 HYPERLIPIDEMIA, UNSPECIFIED 09/05/2016 APRIL BARRON TRAUMA DIRECTOR Ot I25.10 ATHSCL HEART DISEASE OF [place] CORONARY 09/05/2016 APRIL BARRON TRAUMA DIRECTOR Ot E78.5 HYPERLIPIDEMIA, UNSPECIFIED 09/05/2016 APRIL BARRON TRAUMA DIRECTOR Ot I25.10 ATHSCL HEART DISEASE OF [place] CORONARY 09/05/[address] [facility], ALI FACP CCDS Ot E78.4 OTHER HYPERLIPIDEMIA 09/05/2016 VICTOR M FERRARI FAC, ALI FACP CCDS Ot I10 ESSENTIAL (PRIMARY) HYPERTENSION 09/05/2016 VICTOR M FERRARI FAC, ALI FACP CCDS Ot I25.10 ATHSCL HEART DISEASE OF [place] CORONARY 09/05/[address] [facility], ALI FACP CCDS Ot I65.23 OCCLUSION AND STENOSIS OF BILATERAL [place] 09/05/[address] [facility], ALI FACP CCDS Ot Z72.0 TOBACCO USE 09/05/2016 GELLENDER DO, LARRY Wiley Ot M25.531 PAIN IN RIGHT WRIST 09/05/2016 SHARONDER LARRY CARTER Ot E04.1 NONTOXIC SINGLE THYROID NODULE 09/05/2016 GELLENDER DO, LARRY Wiley Ot R22.1 LOCALIZED SWELLING, MASS AND LUMP, NECK 09/05/2016 SHARONDER DOLARRY Ot M89.9 DISORDER OF BONE, UNSPECIFIED 09/05/2016 GELLENDER DO, LARRY Wiley Ot R22.1 LOCALIZED SWELLING, MASS AND LUMP, NECK 09/05/2016 GELLENDER DO, LARRY Wiley Ot R59.0 LOCALIZED ENLARGED LYMPH NODES 09/05/2016 SHARONDER DOLARRY Ot M89.9 DISORDER OF BONE, UNSPECIFIED 09/05/2016 GELLENDER DO, LARRY Wiley Ot R59.0 LOCALIZED ENLARGED LYMPH NODES 09/05/2016 GELLENDER DOLARRY Ot R22.1 LOCALIZED SWELLING, MASS AND LUMP, NECK 09/05/2016 ARLENLENDER DOLARRY Ot C83.30 DIFFUSE LARGE B-CELL LYMPHOMA, UNSPECIFI 09/05/2016 ARLENLENDER LARRY CARTER Ot J35.9 CHRONIC DISEASE OF TONSILS AND ADENOIDS, 09/05/2016 GELLENDER DOLARRY Ot R59.0 LOCALIZED ENLARGED LYMPH NODES 09/05/2016 SHARONDER DOLARRY Ot C83.30 DIFFUSE LARGE B-CELL LYMPHOMA, UNSPECIFI 09/05/2016 LARRY KUO DO Ot J35.9 CHRONIC DISEASE OF TONSILS AND ADENOIDS, 09/05/2016 LARRY KUO DO Ot R59.0 LOCALIZED ENLARGED LYMPH NODES 09/05/2016 RICHELLE FERRARI, BEAN Love Ot C85.90 NON-[place]IN LYMPHOMA, UNSPECIFIED, UNSPE 09/05/2016 RICHELLE FERRARI, BEAN Love Ot Z01.818 ENCOUNTER FOR OTHER PREPROCEDURAL EXAMIN Procedures Code Description Performed By Performed On [...] calcium measurement (mass/volume) 10.0 mg/ dL 8.5-10.1 Capillary blood glucose measurement by glucometer (mass/volume) - 09/05/16 10: 43 Capillary blood glucose measurement by glucometer (mass/volume) 109 mg/dL 70-110 Encounters ACCT No. Visit Date/Time Discharge Status Pt. Type Provider Facility Loc./Unit Complaint [id number] 09/05/2016 10:25:00 2016 15:30:00 DIS Outpatient BEAN PEOPLES MD [facility] SDC LYMPHOMA [id number] 09/04/2016 05:51:00 2016 13:58:00 DIS Outpatient BEAN PEOPLES MD [facility] PREOP LYMPHOMA [id number] 08/24/2016 21:25:00 2016 22:58:00 DIS Emergency OLGA LIDIA GARCIA APRN [facility] ER L LEG SWELLING [id number] 08/21/2016 11:22:00 2016 16:03:00 DIS Outpatient BEAN PEOPLES MD [facility] SDC LYMPHADENOTATHY [id number] 08/15/2016 11:29:00 2016 11:52:00 DIS Outpatient RICHELLE FERRARI, BEAN Love [facility] PREOP LYMPHADENOTATHY [id number] 06/15/2015 11:36:00 2014 23:59:59 CLS Outpatient VENKAT NELSON MD [facility] CARD PROSTATE [place] [id number] 03/17/2015 07:07:00 2014 23:59:59 CLS Outpatient BAIAPRIL US L TRAUMA DIRECTOR [facility] LAB HYPERLIPIDEMIA [id number] 09/01/2014 07:04:00 2014 23:59:59 CLS Outpatient BAIMAGEN APRIL L TRAUMA DIRECTOR [facility] LAB CAD,HLP [id number] 05/17/2014 09:12:00 2013 23:59:59 CLS Outpatient LARRY KUO DO [facility] RAD THYROID NODULE RT SIDE [id number] 03/11/2014 07:01:00 2013 23:59:59 CLS Outpatient BAIMAGEN APRIL L TRAUMA DIRECTOR [facility] LAB CAD,CAROTID ARTERIAL DISEASE ,HYPERLIPIDEMIA [id number] 08/02/2013 07:11:00 2013 23:59:59 CLS Outpatient BAIMAGEN, APRIL L TRAUMA DIRECTOR [facility] LAB CAD,HYPERLIPIDEMIA [id number] 04/13/2013 07:43:00 2012 23:59:59 CLS Outpatient BAIMAGEN APRIL L TRAUMA DIRECTOR [facility] LAB HYPERLIPIDEMIA,STATIN TRX [id number] 03/05/2013 07:09:00 2012 23:59:59 CLS Outpatient BAIMAGEN, APRIL L TRAUMA DIRECTOR [facility] LAB CAD,HYPERTENSION, HYPERLIPIDEMIA,STATIN [place] [id number] 12/31/2012 07:12:00 2012 23:59:59 CLS Outpatient VICTOR M FERRARI FACC, ADONAY ANDRES CCDS [facility] LAB CAD,STATIN [place], HYPERLIPIDEMIA [id number] 09/06/2016 07:41:00 ACT Outpatient ROXI DUNLAP [facility] CARD [id number] 09/05/2016 08:36:00 ACT Outpatient ROXI DUNLAP [facility] ONC [id number] 09/03/2016 08:52:00 ACT Outpatient SHIELA CARTER LARRY Saurabh [facility] RAD LYMPHOMA [id number] 08/13/2016 07:05:00 ACT Outpatient SHIELA CARTER LARRY [facility] CARD SCLEROTIC,LESION ON T4 AND T2 [id number] 08/12/2016 13:08:00 ACT Outpatient SHIELA CARTER LARRY Wiley [facility] RAD RIGHT SIDE OF NECK SWOLLEN [id number] 07/18/2016 08:14:00 ACT Outpatient SHIELA CARTER LARRY Wiley [facility] RAD COMPLICATED CYSTIC BESIUM [id number] 07/11/2016 10:39:00 ACT Outpatient SHIELA CARTER LARRY Saurabh [facility] RAD CYST IN NECK [id number] 07/01/2016 11:52:00 ACT Outpatient LARRY KUO DO [facility] RAD PAIN IN RIGHT WRIST [id number] 05/07/2016 06:59:00 ACT Outpatient VICTOR M FERRARI FACC, ADONAY ANDRES CCDS [facility] CARD CAD,HLP,HTN,CAROTID ARTERIAL DISEASE [id number] 03/15/2016 07:14:00 ACT Outpatient APRIL BARRONP [facility] LAB CAD,HYPERLIPIDEMIA [id number] 09/15/2015 07:14:00 ACT Outpatient APRIL BARRONP [facility] LAB CAD,HLP [id number] 03/17/2015 07:07:00 Document Registration [id number] 03/17/2015 07:07:00 Document Registration [id number] 03/17/2015 07:07:00 Document Registration [id number] 03/17/2015 07:07:00 Document Registration [id number] 03/17/2015 07:07:00 Document Registration [id number] 03/17/2015 07:07:00 Document Registration [id number] 03/17/2015 07:07:00 Document Registration [id number] 03/17/2015 07:07:00 Document Registration [id number] 10/26/2012 07:43:00 Document Registration [id number] 10/05/2012 10:15:00 Document Registration [id number] 06/23/2012 11:38:00 Document Registration [id number] 06/04/2012 13:53:00 Document Registration [id number] 05/28/2012 10:32:00 Document Registration [id number] 05/25/2012 06:56:00 Document Registration [id number] 05/22/2012 08:15:00 Document Registration [id number] 04/16/2012 07:26:00 Document Registration [id number] 01/07/2011 07:33:00 Document Registration [id number] 12/06/2010 07:35:00 Document Registration [id number] 10/08/2010 07:50:00 Document Registration [id number] 10/08/2010 07:49:00 Document Registration [id number] 08/30/2010 07:43:00 Document Registration [id number] 08/02/2010 08:11:00 Document Registration [id number] 07/06/2010 12:09:00 Document Registration [id number] 04/12/2010 08:08:00 Document Registration [id number] 04/04/2010 16:27:00 Document Registration [id number] 03/26/2010 09:52:00 Document Registration [id number] 03/21/2010 15:49:00 Document Registration [id number] 12/12/2009 13:34:00 Document Registration
--- NOTE | 2016-09-08 12:08 | ECHOCARDIOGRAPHY REPORT ---
PROCEDURE PHYSICIAN: ALANIS LÓPEZ DATE OF PROCEDURE: 09/06/2016 TWO DIMENSIONAL ECHOCARDIOGRAM REPORT PRIMARY PHYSICIAN: OTHER PHYSICIAN: REFERRING PHYSICIAN: Dr. Flako Summers and Dr. Hao Gutierrez ORDERING PHYSICIAN: INDICATION FOR THE PROCEDURE: Lymphoma MEASUREMENTS DERIVED VALUES LV DIAMETER (LAX) NORMALS NORMALS Diastolic 4.6 (3.6-5.2) Eject. Fract. 60% (60%+/-6%) Systolic (2.3-3.9) Diastolic Vol. % Shortening (0.22-0.42) Systolic Vol. Aortic Root IVS THICKNESS Diastolic 1.2 (0.6-1.1) LVPW THICKNESS Diastolic 1.2 (0.6-1.1) LA DIAMETER Systolic 4.6 (2.1-3.7) FINDINGS: 1. Technical quality is good. 2. The left ventricle is normal in size with normal contractility. Systolic function appeared to be normal. Estimated ejection fraction 60%. 3. The left atrium is mildly dilated. No clot or thrombus were seen within the left atrium. 4. The right atrium and right ventricle are normal in size. No clot or thrombus were seen within the right side. 5. Mitral valve is normal in morphology with mild mitral regurgitation noted by color Doppler flow. No mitral valve prolapse. No mitral valve stenosis. 6. Aortic valve is trileaflet with normal opening and closing pattern. No significant aortic stenosis or regurgitation was seen. 7. Tricuspid valve is normal in morphology with mild tricuspid regurgitation noted by color Doppler flow. Doppler across tricuspid valve estimated pulmonary artery pressure of 17+ right atrial pressure. 8. Pulmonic valve is functioning normally. 9. No pericardial effusion. CONCLUSION: 1. Normal left ventricular size and systolic function. Estimated ejection fraction 60%. 2. Mild mitral and tricuspid regurgitation. 3. Left atrial enlargement. 4. Estimated pulmonary artery pressure of 25 mmHg. Job ID: [id number] Dictated Date: 09/07/2016 08:58:36 Commercial Director Date: 09/08/2016 12:03:47 / oralia
== END ==
LOC: CARD 07:41
PROVIDERS: ATTEND Internal Medicine Hematology & Oncology
DX: Z01.810 Encounter for preprocedural cardiovascular examination (principal); C85.90 Non-Hodgkin lymphoma, unspecified, unspecified site
CPT/HCPCS: 93306

== ENCOUNTER → 2016-09-18 | Outpatient (CLI) | payer MEDICARE, OTHER ==
--- OUTSIDE RECORDS SUMMARY | 2016-09-18 09:05 | XMS REPORT | Continuity of Care Document ---
Author Author [facility] Organization [facility] Address Unknown Phone Unavailable Allergies Active Description Code Type Severity Reaction Onset Reported/Identified Relationship to Patient Clinical Status Yes sulfamethoxazole [id number] Drug Allergy Unknown N/A 10/07/2008 Yes trimethoprim [id number] Drug Allergy Unknown N/A 10/07/2008 Medications Problems [...] NOS 11/28/2010 Ot 414.01 CORONARY ATHEROSCLEROSIS OF [place] CORON 11/28/2010 Ot 415.19 OTH PULMON EMBOLISM/INFARCT 05/25/2012 Ot 211.4 BENIGN NEOPL RECTUM/ANUS 05/25/2012 Ot 250.00 DIAB DRISS WO COMPL, TYPE II OR UNSPEC TY 05/25/2012 Ot 272.0 PURE HYPERCHOLESTEROLEM 05/25/2012 Ot 401.9 HYPERTENSION NOS 05/25/2012 Ot 414.01 CORONARY ATHEROSCLEROSIS OF [place] CORON 05/25/2012 Ot 562.10 DIVERTICULOSIS COLON (W/O MENT OF HEMORR 05/25/2012 Ot V45.82 PERCUTANEOUS TRANSLUM CORON ANGIOPLASTY 05/25/2012 Ot V58.63 LONG-TERM(CURRENT)USE OF ANTIPLATELET/AN 05/25/2012 Ot V58.69 OTH MED,LT,CURRENT USE 05/25/2012 Ot V76.51 SCREEN MAL NEOP-COLON 06/05/2012 Ot 250.00 DIAB DRISS WO COMPL, TYPE II OR UNSPEC TY 06/05/2012 Ot 272.4 HYPERLIPIDEMIA NEC/NOS 06/05/2012 Ot 401.9 HYPERTENSION NOS 06/05/2012 Ot 414.01 CORONARY ATHEROSCLEROSIS OF [place] CORON 06/05/2012 Ot 562.10 DIVERTICULOSIS COLON (W/O [...] CCDS Ot 414.01 03/17/2015 VICTOR M FERRARI [facility], ALI FACP CCDS Ot V58.69 03/17/2015 BAIMA, APRIL L THERMAL TECHNICIAN Ot 272.4 03/17/2015 BAIMA, APRIL L THERMAL TECHNICIAN Ot 401.9 03/17/2015 BAIMA, APRIL L THERMAL TECHNICIAN Ot 414.01 03/17/2015 BAIMA, APRIL L THERMAL TECHNICIAN Ot 272.4 03/17/2015 BAIMA, APRIL L THERMAL TECHNICIAN Ot V58.69 03/17/2015 BAIMA, APRIL L THERMAL TECHNICIAN Ot 272.4 03/17/2015 BAIMA, APRIL L THERMAL TECHNICIAN Ot 414.00 03/17/2015 BAIMA, APRIL L THERMAL TECHNICIAN Ot 272.4 03/17/2015 BAIMA, APRIL L THERMAL TECHNICIAN Ot 414.00 03/17/2015 BAIMA, APRIL L THERMAL TECHNICIAN Ot 447.9 03/17/2015 LARRY KUO DO Ot 241.0 03/17/2015 BAIMA, APRIL L THERMAL TECHNICIAN Ot 272.4 03/17/2015 BAIMA, APRIL L THERMAL TECHNICIAN Ot 414.00 03/21/2015 BAIMA, APRIL L THERMAL TECHNICIAN Ot 272.4 03/24/2015 BAIMA, APRIL L THERMAL TECHNICIAN Ot 272.4 04/06/2015 BAIMA, APRIL L THERMAL TECHNICIAN Ot 272.4 07/05/2015 VENKAT NELSON MD Ot [...] FACP CCDS Ot V58.69 09/15/2015 APRIL BARRON THERMAL TECHNICIAN Ot 272.4 09/15/2015 APRIL BARRON THERMAL TECHNICIAN Ot 401.9 09/15/2015 BAIMA, APRIL L THERMAL TECHNICIAN Ot 414.01 09/15/2015 BAIMA, APRIL L THERMAL TECHNICIAN Ot 272.4 09/15/2015 BAIMA, APRIL L THERMAL TECHNICIAN Ot V58.69 09/15/2015 BAIMA, APRIL L THERMAL TECHNICIAN Ot 272.4 09/15/2015 BAIMA, APRIL L THERMAL TECHNICIAN Ot 414.00 09/15/2015 BAIMA, APRIL L THERMAL TECHNICIAN Ot 272.4 09/15/2015 BAIMA, APRIL L THERMAL TECHNICIAN Ot 414.00 09/15/2015 BAIMA, APRIL L THERMAL TECHNICIAN Ot 447.9 09/15/2015 LARRY KUO DO A Ot 241.0 09/15/2015 BAIMA, APRIL L THERMAL TECHNICIAN Ot 272.4 09/15/2015 BAIMA, APRIL L THERMAL TECHNICIAN Ot 414.00 09/15/2015 BAIMA, APRIL L THERMAL TECHNICIAN Ot 272.4 09/15/2015 VENKAT NELSON MD Ot C61 10/09/2015 BAIMA, APRIL L THERMAL TECHNICIAN Ot E78.5 10/09/2015 BAIMA, APRIL L THERMAL TECHNICIAN Ot I25.10 03/15/2016 Ot 272.4 HYPERLIPIDEMIA NEC/NOS 03/15/2016 Ot 401.9 HYPERTENSION NOS 03/15/2016 Ot 414.01 CORONARY ATHEROSCLEROSIS OF [place] CORON 03/15/2016 Ot V58.69 OTH MED,LT,CURRENT USE 03/15/2016 Ot 272.4 HYPERLIPIDEMIA NEC/NOS 03/15/2016 Ot 401.9 HYPERTENSION NOS 03/15/2016 Ot 414.01 CORONARY ATHEROSCLEROSIS OF [place] CORON 03/15/2016 Ot 415.19 OTH PULMON EMBOLISM/INFARCT [...] FACP CCDS Ot 414.01 CORONARY ATHEROSCLEROSIS OF [place] CORON 03/15/2016 VICTOR M FERRARI FACC, ALI FACP CCDS Ot V58.69 OTH MED,LT,CURRENT USE 03/15/2016 BAIMA, APRIL L THERMAL TECHNICIAN Ot 272.4 HYPERLIPIDEMIA NEC/NOS 03/15/2016 BAIMA, APRIL L THERMAL TECHNICIAN Ot 401.9 HYPERTENSION NOS 03/15/2016 BAIMA, APRIL L THERMAL TECHNICIAN Ot 414.01 CORONARY ATHEROSCLEROSIS OF [place] CORON 03/15/2016 BAIMA, APRIL L THERMAL TECHNICIAN Ot 272.4 HYPERLIPIDEMIA NEC/NOS 03/15/2016 BAIMA, APRIL L THERMAL TECHNICIAN Ot V58.69 OTH MED,LT,CURRENT USE 03/15/2016 BAIMA, APRIL L THERMAL TECHNICIAN Ot 272.4 HYPERLIPIDEMIA NEC/NOS 03/15/2016 BAIMA, APRIL L THERMAL TECHNICIAN Ot 414.00 CORON ATHEROSCLER NOS TYPE VESSEL, NATIV 03/15/2016 BAIMA, APRIL L THERMAL TECHNICIAN Ot 272.4 HYPERLIPIDEMIA NEC/NOS 03/15/2016 BAIMA, APRIL L THERMAL TECHNICIAN Ot 414.00 CORON ATHEROSCLER NOS TYPE VESSEL, NATIV 03/15/2016 BAIMA, APRIL L THERMAL TECHNICIAN Ot 447.9 ARTERIAL DISEASE NOS 03/15/2016 LARRY KUO DO Ot 241.0 NONTOX UNINODULAR GOITER 03/15/2016 BAIMA, APRIL L THERMAL TECHNICIAN Ot 272.4 HYPERLIPIDEMIA NEC/NOS 03/15/2016 BAIMA, APRIL L THERMAL TECHNICIAN Ot 414.00 CORON ATHEROSCLER NOS TYPE VESSEL, NATIV 03/15/2016 BAIMA, APRIL L THERMAL TECHNICIAN Ot 272.4 HYPERLIPIDEMIA NEC/NOS 03/15/2016 LESLIE FERRARI, VENKAT Wiley Ot C61 MALIGNANT NEOPLASM OF PROSTATE 03/15/2016 BAIMA, APRIL L THERMAL TECHNICIAN Ot E78.5 HYPERLIPIDEMIA, UNSPECIFIED 03/15/2016 BAIMA, APRIL L THERMAL TECHNICIAN Ot I25.10 ATHSCL HEART DISEASE OF [place] CORONARY 03/15/2016 BAIMA, APRIL L THERMAL TECHNICIAN Ot I25.10 ATHSCL HEART DISEASE OF [place] CORONARY 03/19/2016 BAIMA, APRIL L THERMAL TECHNICIAN Ot E78.5 HYPERLIPIDEMIA, UNSPECIFIED 03/19/2016 BAIMA, APRIL L THERMAL TECHNICIAN Ot I25.10 ATHSCL HEART DISEASE OF [place] CORONARY 04/05/2016 BAIMA, APRIL L THERMAL TECHNICIAN Ot E78.5 HYPERLIPIDEMIA, UNSPECIFIED 04/05/2016 BAIMA, APRIL L THERMAL TECHNICIAN Ot I25.10 ATHSCL HEART DISEASE OF [place] CORONARY 05/07/2016 Ot 272.4 HYPERLIPIDEMIA NEC/NOS 05/07/2016 Ot 401.9 HYPERTENSION NOS 05/07/2016 Ot 414.01 CORONARY ATHEROSCLEROSIS OF [place] CORON 05/07/2016 Ot 415.19 OTH PULMON EMBOLISM/INFARCT [...] FACShekhar CCDS Ot 414.01 CORONARY ATHEROSCLEROSIS OF [place] CORON 05/07/2016 VICTOR M FERRARI FACC, ALI FACShekhar CCDS Ot V58.69 OTH MED,LT,CURRENT USE 05/07/2016 BAIMA, APRIL L THERMAL TECHNICIAN Ot 272.4 HYPERLIPIDEMIA NEC/NOS 05/07/2016 BAIMA, APRIL L THERMAL TECHNICIAN Ot 401.9 HYPERTENSION NOS 05/07/2016 BAIMA, APRIL L THERMAL TECHNICIAN Ot 414.01 CORONARY ATHEROSCLEROSIS OF [place] CORON 05/07/2016 BAIMA, APRIL L THERMAL TECHNICIAN Ot 272.4 HYPERLIPIDEMIA NEC/NOS 05/07/2016 BAIMA, APRIL L THERMAL TECHNICIAN Ot V58.69 OTH MED,LT,CURRENT USE 05/07/2016 BAIMA, APRIL L THERMAL TECHNICIAN Ot 272.4 HYPERLIPIDEMIA NEC/NOS 05/07/2016 BAIMA, APRIL L THERMAL TECHNICIAN Ot 414.00 CORON ATHEROSCLER NOS TYPE VESSEL, NATIV 05/07/2016 BAIMA, APRIL L THERMAL TECHNICIAN Ot 272.4 HYPERLIPIDEMIA NEC/NOS 05/07/2016 BAIAPRIL US L THERMAL TECHNICIAN Ot 414.00 CORON ATHEROSCLER NOS TYPE VESSEL, NATIV 05/07/2016 BAIMA APRIL L THERMAL TECHNICIAN Ot 447.9 ARTERIAL DISEASE NOS 05/07/2016 LARRY KUO DO Ot 241.0 NONTOX UNINODULAR GOITER 05/07/2016 BAIMAAPRIL L THERMAL TECHNICIAN Ot 272.4 HYPERLIPIDEMIA NEC/NOS 05/07/2016 BAIMAAPRIL L THERMAL TECHNICIAN Ot 414.00 CORON ATHEROSCLER NOS TYPE VESSEL, NATIV 05/07/2016 BAIMA, APRIL L THERMAL TECHNICIAN Ot 272.4 HYPERLIPIDEMIA NEC/NOS 05/07/2016 LESLIE FERRARI, VENKAT Wiley Ot C61 MALIGNANT NEOPLASM OF PROSTATE 05/07/2016 BAIMA, APRIL L THERMAL TECHNICIAN Ot E78.5 HYPERLIPIDEMIA, UNSPECIFIED 05/07/2016 BAIMA, APRIL L THERMAL TECHNICIAN Ot I25.10 ATHSCL HEART DISEASE OF [place] CORONARY 05/07/2016 KASANDRAAPRIL US L THERMAL TECHNICIAN Ot E78.5 HYPERLIPIDEMIA, UNSPECIFIED 05/07/2016 BAIMA, APRIL L THERMAL TECHNICIAN Ot I25.10 ATHSCL HEART DISEASE OF [place] CORONARY 05/28/2016 VICTOR M FERRARI FACC, ADONAY FACP CCDS Ot E78.4 OTHER HYPERLIPIDEMIA 05/28/2016 VICTOR M FERRARI FACC, ADONAY FACP CCDS Ot I10 ESSENTIAL (PRIMARY) HYPERTENSION 05/28/2016 VICTOR M FERRARI FACC, ALI FACP CCDS Ot I25.10 ATHSCL HEART DISEASE OF [place] CORONARY 05/28/2016 VICTOR M FERRARI FACC, ADONAY [...] CCDS Ot I25.10 ATHSCL HEART DISEASE OF [place] CORONARY 05/31/2016 VICTOR M FERRARI FACC, ADONAY [...] ANDRES CCDS Ot 414.01 CORONARY ATHEROSCLEROSIS OF [place] CORON 07/18/2016 VICTOR M FERRARI FACC, ADONAY ANDRES CCDS Ot V58.69 OTH MED,LT,CURRENT USE 07/18/2016 BAIMA, APRIL L THERMAL TECHNICIAN Ot 272.4 HYPERLIPIDEMIA NEC/NOS 07/18/2016 BAIMA, APRIL L THERMAL TECHNICIAN Ot 401.9 HYPERTENSION NOS 07/18/2016 BAIMA, APRIL L THERMAL TECHNICIAN Ot 414.01 CORONARY ATHEROSCLEROSIS OF [place] CORON 07/18/2016 BAIMA, APRIL L THERMAL TECHNICIAN Ot 272.4 HYPERLIPIDEMIA NEC/NOS 07/18/2016 BAIMA, APRIL L THERMAL TECHNICIAN Ot V58.69 OTH MED,LT,CURRENT USE 07/18/2016 BAIMA, APRIL L THERMAL TECHNICIAN Ot 272.4 HYPERLIPIDEMIA NEC/NOS 07/18/2016 BAIMA, APRIL L THERMAL TECHNICIAN Ot 414.00 CORON ATHEROSCLER NOS TYPE VESSEL, NATIV 07/18/2016 BAIMA, APRIL L THERMAL TECHNICIAN Ot 272.4 HYPERLIPIDEMIA NEC/NOS 07/18/2016 BAIMA, APRIL L THERMAL TECHNICIAN Ot 414.00 CORON ATHEROSCLER NOS TYPE VESSEL, NATIV 07/18/2016 BAIMA, APRIL L THERMAL TECHNICIAN Ot 447.9 ARTERIAL DISEASE NOS 07/18/2016 SHIELA DOLARRY A Ot 241.0 NONTOX UNINODULAR GOITER 07/18/2016 BAIMA, APRIL L THERMAL TECHNICIAN Ot 272.4 HYPERLIPIDEMIA NEC/NOS 07/18/2016 BAIMA, APRIL L THERMAL TECHNICIAN Ot 414.00 CORON ATHEROSCLER NOS TYPE VESSEL, NATIV 07/18/2016 BAIMA, APRIL L THERMAL TECHNICIAN Ot 272.4 HYPERLIPIDEMIA NEC/NOS 07/18/2016 VENKAT NELSON MD Ot C61 MALIGNANT NEOPLASM OF PROSTATE 07/18/2016 BAIMA, APRIL L THERMAL TECHNICIAN Ot E78.5 HYPERLIPIDEMIA, UNSPECIFIED 07/18/2016 BAIMA, APRIL L THERMAL TECHNICIAN Ot I25.10 ATHSCL HEART DISEASE OF [place] CORONARY 07/18/2016 BAIMA, APRIL L THERMAL TECHNICIAN Ot E78.5 HYPERLIPIDEMIA, UNSPECIFIED 07/18/2016 BAIMA, APRIL L THERMAL TECHNICIAN Ot I25.10 ATHSCL HEART DISEASE OF [place] CORONARY 07/18/2016 ADONAY DOW MD, FACC, FACP CCDS Ot E78.4 OTHER HYPERLIPIDEMIA 07/18/2016 [facility], [facility] Ot I10 ESSENTIAL (PRIMARY) HYPERTENSION 07/18/2016 VICTOR M FERRARI FACC, ADONAY [facility] CCDS Ot I25.10 ATHSCL HEART DISEASE OF [place] CORONARY 07/18/2016 VICTOR M FERRARI FACC, ADONAY [facility] CCDS Ot I65.23 OCCLUSION AND STENOSIS OF [place] 07/18/2016 VICTOR M GREGORY, ALI FACP CCDS Ot Z72.0 TOBACCO USE 07/18/2016 GELLENDER DO, LARRY Wiley Ot M25.531 PAIN IN RIGHT WRIST 07/18/2016 GELLENDER DO, ALRRY Wiley Ot E04.1 NONTOXIC SINGLE THYROID NODULE 07/18/2016 GELLENDER DO, LARRY Wiley Ot R22.1 LOCALIZED SWELLING, MASS AND LUMP, NECK 07/18/2016 GELLENDER DO, LARRY Wiely Ot M89.9 DISORDER OF BONE, UNSPECIFIED 07/18/2016 [...] Love Ot I25.10 ATHSCL HEART DISEASE OF [place] CORONARY 08/21/2016 RICHELLE FERRARI, BEAN Love Ot [...] Love Ot I25.10 ATHSCL HEART DISEASE OF [place] CORONARY 08/22/2016 BEAN PEOPLES MD Ot R59.0 LOCALIZED ENLARGED LYMPH NODES 08/22/2016 BEAN PEOPLES MD Ot Z87.891 PERSONAL HISTORY OF NICOTINE DEPENDENCE 08/24/2016 OLGA LIDIA GARCIA APRN Ot E11.9 TYPE 2 DIABETES MELLITUS WITHOUT COMPLIC 08/24/2016 OLGA LIDIA GARCIA FASHION DIRECTOR Ot I10 ESSENTIAL (PRIMARY) HYPERTENSION 08/24/2016 OLGA LIDIA GARCIA APRN Ot R22.42 LOCALIZED SWELLING, MASS AND LUMP, LEFT 08/24/2016 OLGA LIDIA GARCIA APRN Ot R59.0 LOCALIZED ENLARGED LYMPH NODES 08/24/2016 OLGA LIDIA GARCIA APRN Ot Z79.02 RESIDENTIAL (CURRENT) USE OF ANTITHROMBOTI 08/24/2016 OLGA LIDIA GARCIA APRN Ot Z79.84 WRAPPING CLERK (CURRENT) USE OF ORAL HYPOGLYC 08/24/2016 OLGA LIDIA GARCIA APRN Ot Z79.899 OTHER RESIDENTIAL (CURRENT) DRUG THERAPY 08/26/2016 OLGA LIDIA GARCIA APRN Ot E11.9 TYPE 2 DIABETES MELLITUS WITHOUT COMPLIC 08/26/2016 OLGA LIDIA GARCIA FASHION DIRECTOR Ot I10 ESSENTIAL (PRIMARY) HYPERTENSION 08/26/2016 OLGA LIDIA GARCIA FASHION DIRECTOR Ot R22.42 LOCALIZED SWELLING, MASS AND LUMP, LEFT 08/26/2016 OLGA LIDIA GARCIA FASHION DIRECTOR Ot R59.0 LOCALIZED ENLARGED LYMPH NODES 08/26/2016 OLGA LIDIA GARCIA FASHION DIRECTOR Ot Z79.02 RESIDENTIAL (CURRENT) USE OF ANTITHROMBOTI 08/26/2016 OLGA LIDIA GARCIA FASHION DIRECTOR Ot Z79.84 RESIDENTIAL (CURRENT) USE OF ORAL HYPOGLYC 08/26/2016 OLGA LIDIA GARCIA FASHION DIRECTOR Ot Z79.899 OTHER WRAPPING CLERK (CURRENT) DRUG THERAPY 09/05/2016 RICHELLE FERRARI, BEAN Love Ot E11.9 TYPE 2 DIABETES MELLITUS WITHOUT COMPLIC 09/05/2016 RICHELLE FERRARI, BEAN Love Ot E78.5 HYPERLIPIDEMIA, UNSPECIFIED 09/05/2016 RICHELLE FERRARI, BEAN Love Ot I10 ESSENTIAL (PRIMARY) HYPERTENSION 09/05/2016 RICHELLE FERRARI, BEAN Love Ot I25.10 ATHSCL HEART DISEASE OF [place] CORONARY 09/05/2016 RICHELLE FERRARI, BEAN Love Ot [...] ANGIOPLASTY 09/05/2016 VICTOR M FERRARI FACC, [facility] Ot 272.4 HYPERLIPIDEMIA NEC/NOS 09/05/2016 VICTOR M FERRARI FACC, ALI FACP CCDS Ot 414.01 CORONARY ATHEROSCLEROSIS OF [place] CORON 09/05/2016 VICTOR M FERRARI FACC, ALI [facility] CCDS Ot V58.69 OTH MED,LT,CURRENT USE 09/05/2016 BAIMA, APRIL L THERMAL TECHNICIAN Ot 272.4 HYPERLIPIDEMIA NEC/NOS 09/05/2016 BAIMA, APRIL L THERMAL TECHNICIAN Ot 401.9 HYPERTENSION NOS 09/05/2016 BAIMA, APRIL L THERMAL TECHNICIAN Ot 414.01 CORONARY ATHEROSCLEROSIS OF [place] CORON 09/05/2016 BAIMA, APRIL L THERMAL TECHNICIAN Ot 272.4 HYPERLIPIDEMIA NEC/NOS 09/05/2016 BAIMA, APRIL L THERMAL TECHNICIAN Ot V58.69 OTH MED,LT,CURRENT USE 09/05/2016 BAIMA, APRIL L THERMAL TECHNICIAN Ot 272.4 HYPERLIPIDEMIA NEC/NOS 09/05/2016 BAIMA, APRIL L THERMAL TECHNICIAN Ot 414.00 CORON ATHEROSCLER NOS TYPE VESSEL, NATIV 09/05/2016 BAIMA, APRIL L THERMAL TECHNICIAN Ot 272.4 HYPERLIPIDEMIA NEC/NOS 09/05/2016 BAIMA, APRIL L THERMAL TECHNICIAN Ot 414.00 CORON ATHEROSCLER NOS TYPE VESSEL, NATIV 09/05/2016 BAIMA, APRIL L THERMAL TECHNICIAN Ot 447.9 ARTERIAL DISEASE NOS 09/05/2016 LARRY KUO DO Ot 241.0 NONTOX UNINODULAR GOITER 09/05/2016 BAIMA, APRIL L THERMAL TECHNICIAN Ot 272.4 HYPERLIPIDEMIA NEC/NOS 09/05/2016 BAIMA, APRIL L THERMAL TECHNICIAN Ot 414.00 CORON ATHEROSCLER NOS TYPE VESSEL, NATIV 09/05/2016 BAIMA, APRIL L THERMAL TECHNICIAN Ot 272.4 HYPERLIPIDEMIA NEC/NOS 09/05/2016 VENKAT NELSON MD Ot C61 MALIGNANT NEOPLASM OF PROSTATE 09/05/2016 BAIMA, APRIL L THERMAL TECHNICIAN Ot E78.5 HYPERLIPIDEMIA, UNSPECIFIED 09/05/2016 ARPIL BARRON THERMAL TECHNICIAN Ot I25.10 ATHSCL HEART DISEASE OF [place] CORONARY 09/05/2016 APRIL BARRON THERMAL TECHNICIAN Ot E78.5 HYPERLIPIDEMIA, UNSPECIFIED 09/05/2016 APRIL BARRON THERMAL TECHNICIAN Ot I25.10 ATHSCL HEART DISEASE OF [place] CORONARY 09/05/2016 VICTOR M FERRARI [facility], ALI FACP CCDS Ot E78.4 OTHER HYPERLIPIDEMIA 09/05/2016 VICTOR M FERRARI FAC, ALI FACP CCDS Ot I10 ESSENTIAL (PRIMARY) HYPERTENSION 09/05/2016 VICTOR M FERRARI FAC, ALI FACP CCDS Ot I25.10 ATHSCL HEART DISEASE OF [place] CORONARY 09/05/2016 VICTOR M FERRARI [facility], ALI FACP CCDS Ot I65.23 OCCLUSION AND STENOSIS OF [place]AL [place] 09/05/2016 VICTOR M FERRARI [facility], ALI FACP CCDS Ot Z72.0 TOBACCO [...] Ot Z01.818 ENCOUNTER FOR OTHER PREPROCEDURAL EXAMIN 09/05/2016 RICHELLE FERRARI, BEAN Love Ot C85.91 NON-[place] LYMPHOMA, UNSP, NODES OF HEA 09/05/2016 RICHELLE FERRARI, BEAN Love Ot E11.9 TYPE 2 DIABETES MELLITUS WITHOUT COMPLIC 09/05/2016 RICHELLE FERRARI, BEAN Love Ot Z79.84 RESIDENTIAL (CURRENT) USE OF ORAL HYPOGLYC 09/09/2016 ROXI DUNLAP Ot C85.90 NON-[place] LYMPHOMA, UNSPECIFIED, UNSPE 09/09/2016 ROXI DUNLAP Ot Z01.810 ENCOUNTER FOR PREPROCEDURAL CARDIOVASCUL 09/11/2016 ROXI DUNLAP Ot C83.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, LYMPH NOD 09/11/2016 ROXI DUNLAP Ot E11.9 TYPE 2 DIABETES MELLITUS WITHOUT COMPLIC 09/11/2016 ROXI DUNLAP Ot E78.5 HYPERLIPIDEMIA, UNSPECIFIED 09/11/2016 ROXI DUNLAP Ot I10 ESSENTIAL (PRIMARY) HYPERTENSION 09/11/2016 ROXI DUNLAP Ot I25.10 ATHSCL HEART DISEASE OF [place] CORONARY 09/11/2016 ROXI DUNLAP Ot Z79.84 RESIDENTIAL (CURRENT) USE OF ORAL HYPOGLYC 09/11/2016 ROXI DUNLAP Ot Z79.899 OTHER WRAPPING CLERK (CURRENT) DRUG THERAPY 09/11/2016 ROXI DUNLAP Ot Z87.891 PERSONAL HISTORY OF NICOTINE DEPENDENCE 09/11/2016 ROXI DUNLAP Ot Z95.5 PRESENCE OF CORONARY ANGIOPLASTY IMPLANT Procedures Code Description Performed By Performed On [...] calcium measurement (mass/volume) 10.0 mg/ dL 8.5-10.1 Methicillin resistant Staphylococcus aureus (MRSA) screening culture - 10:35 Methicillin resistant Staphylococcus aureus (MRSA) screening culture NEG NRG Capillary blood glucose measurement by glucometer (mass/volume) - 09/05/16 10: 43 Capillary blood glucose measurement by glucometer (mass/volume) 109 mg/dL 70-110 Encounters ACCT No. Visit Date/Time Discharge Status Pt. Type Provider Facility Loc./Unit Complaint [id number] 09/05/2016 10:25:00 2016 15:30:00 DIS Outpatient BEAN PEOPLES MD [facility] SDC LYMPHOMA [id number] 09/04/2016 05:51:00 2016 13:58:00 DIS Outpatient BEAN PEOPLES MD [facility] PREOP LYMPHOMA [id number] 08/24/2016 21:25:00 2016 22:58:00 DIS Emergency OLGA LIDIA GARCIA APRN [facility] ER L LEG SWELLING [id number] 08/21/2016 11:22:00 2016 16:03:00 DIS Outpatient BEAN PEOPLES MD [facility] SDC LYMPHADENOTATHY [id number] 08/15/2016 11:29:00 2016 11:52:00 DIS Outpatient BEAN PEOPLES MD [facility] PREOP LYMPHADENOTATHY [id number] 06/15/2015 11:36:00 2014 23:59:59 CLS Outpatient VENKAT NELSON MD [facility] CARD PROSTATE CA [id number] 03/17/2015 07:07:00 2014 23:59:59 CLS Outpatient APRIL BARRON [facility] LAB HYPERLIPIDEMIA [id number] 09/01/2014 07:04:00 2014 23:59:59 CLS Outpatient BAIAPRIL USP [facility] LAB CAD,HLP [id number] 05/17/2014 09:12:00 2013 23:59:59 CLS Outpatient LARRY KUO DO [facility] RAD THYROID NODULE RT SIDE [id number] 03/11/2014 07:01:00 2013 23:59:59 CLS Outpatient BAIAPRIL US L THERMAL TECHNICIAN [facility] LAB CAD,CAROTID ARTERIAL DISEASE ,HYPERLIPIDEMIA [id number] 08/02/2013 07:11:00 2013 23:59:59 CLS Outpatient APRIL BARRON L THERMAL TECHNICIAN [facility] LAB CAD,HYPERLIPIDEMIA [id number] 04/13/2013 07:43:00 2012 23:59:59 CLS Outpatient APRIL BARRON L THERMAL TECHNICIAN [facility] LAB HYPERLIPIDEMIA,STATIN TRX [id number] 03/05/2013 07:09:00 2012 23:59:59 CLS Outpatient APRIL BARRON L THERMAL TECHNICIAN [facility] LAB CAD,HYPERTENSION, HYPERLIPIDEMIA,STATIN [place] [id number] 12/31/2012 07:12:00 2012 23:59:59 CLS Outpatient VICTOR M FERRARI FACC, ADONAY ANDRES CCDS [facility] LAB CAD,STATIN [place], HYPERLIPIDEMIA [id number] 09/11/2016 09:34:00 ACT Outpatient ROXI DUNLAP [facility] ONC [id number] 09/06/2016 07:41:00 ACT Outpatient ROXI DUNLAP [facility] CARD Z01.810 [id number] 09/03/2016 08:52:00 ACT Outpatient LARRY KUO DO [facility] RAD LYMPHOMA [id number] 08/13/2016 07:05:00 ACT Outpatient LARRY KUO DO [facility] CARD SCLEROTIC,LESION ON T4 AND T2 [id number] 08/12/2016 13:08:00 ACT Outpatient LARRY KUO DO [facility] RAD RIGHT SIDE OF NECK SWOLLEN [id number] 07/18/2016 08:14:00 ACT Outpatient ARLENKEMARLARRY HENDERSON DO [facility] RAD COMPLICATED CYSTIC BESIUM [id number] 07/11/2016 10:39:00 ACT Outpatient ARLENKEMARLARRY HENDERSON DO [facility] RAD CYST IN NECK [id number] 07/01/2016 11:52:00 ACT Outpatient ARLENKEMARLARRY HENDERSON DO [facility] RAD PAIN IN RIGHT WRIST [id number] 05/07/2016 06:59:00 ACT Outpatient VICTOR M FERRARI FACC, ADONAY ANDRES CCDS [facility] CARD CAD,HLP,HTN,CAROTID ARTERIAL DISEASE [id number] 03/15/2016 07:14:00 ACT Outpatient APRIL BARRON [facility] LAB CAD,HYPERLIPIDEMIA [id number] 09/15/2015 07:14:00 ACT Outpatient APRIL BARRON [facility] LAB CAD,HLP [id number] 03/17/2015 07:07:00 Document Registration [id number] 03/17/2015 07:07:00 Document Registration [id number] 03/17/2015 07:07:00 Document Registration [id number] 03/17/2015 07:07:00 Document Registration [id number] 03/17/2015 07:07:00 Document Registration [id number] 03/17/2015 07:07:00 Document Registration [id number] 03/17/2015 07:07:00 Document Registration [id number] 03/17/2015 07:07:00 Document Registration [id number] 10/26/2012 07:43:00 Document Registration [id number] 10/05/2012 10:15:00 Document Registration [id number] 06/23/2012 11:38:00 Document Registration [id number] 06/04/2012 13:53:00 Document Registration [id number] 05/28/2012 10:32:00 Document Registration [id number] 05/25/2012 06:56:00 Document Registration [id number] 05/22/2012 08:15:00 Document Registration [id number] 04/16/2012 07:26:00 Document Registration [id number] 01/07/2011 07:33:00 Document Registration [id number] 12/06/2010 07:35:00 Document Registration [id number] 10/08/2010 07:50:00 Document Registration [id number] 10/08/2010 07:49:00 Document Registration [id number] 08/30/2010 07:43:00 Document Registration [id number] 08/02/2010 08:11:00 Document Registration [id number] 07/06/2010 12:09:00 Document Registration [id number] 04/12/2010 08:08:00 Document Registration [id number] 04/04/2010 16:27:00 Document Registration [id number] 03/26/2010 09:52:00 Document Registration [id number] 03/21/2010 15:49:00 Document Registration [id number] 12/12/2009 13:34:00 Document Registration
[2016-09-18 09:49] LABS: ALANINE AMINOTRANSFERASE 22 U/L (0-55); ALBUMIN 3.9 G/DL (3.2-4.5); ANION GAP 7 MMOL/L (5-14); ASPARTATE AMINO TRANSFERASE 14 U/L (5-34); BILIRUBIN,TOTAL 0.5 MG/DL (0.1-1.0); BLOOD UREA NITROGEN 13 MG/DL (7-18); BUN/CREATININE RATIO 17; CALCIUM 9.1 MG/DL (8.5-10.1); CARBON DIOXIDE 25 MMOL/L (21-32); CHLORIDE 107 MMOL/L (98-107); CHOLESTEROL 107 MG/DL (< 200); CREATININE SERUM 0.76 MG/DL (0.60-1.30); DIRECT LDL 35 MG/DL (1-129); GFR ESTIMATED > 60; GLUCOSE 127 MG/DL (70-105); POTASSIUM 4.3 MMOL/L (3.6-5.0); SODIUM 139 MMOL/L (135-145); TOTAL PROTEIN 6.1 G/DL (6.4-8.2); TRIGLYCERIDES 210 MG/DL (<150); VLDL CHOLESTEROL 42 MG/DL (5-40)
== END ==
LOC: LAB 08:59
PROVIDERS: ATTEND Nurse Practitioner Family
DX: E78.5 Hyperlipidemia, unspecified (principal); I25.10 Atherosclerotic heart disease of native coronary artery without angina pectoris; I10 Essential (primary) hypertension; I77.9 Disorder of arteries and arterioles, unspecified
CPT/HCPCS: 36415; 80053; 80061

== ENCOUNTER 2016-10-22 16:31 | Inpatient (IN) | payer MEDICARE, OTHER ==
[~2016-10-22] VITALS: Ht 172.7 cm; Wt 78.1 kg
[~2016-10-22 16:31] MED LIST changes: -AMOX500C2 PO; -CLIN150C17 PO; -PRD20T PO; -ROSU20TA28 PO
[2016-10-22] MEDS ORDERED: KETOROLAC 30 MG/ML VIAL IVP STA (17:02)
[2016-10-22] MEDS ORDERED: fentaNYL INJECTION 100 MCG/2 ML AMP IVP STA (17:02)
[2016-10-22] MEDS ORDERED: NS IV 1000 ML 1,000 ML ONE (17:13)
[2016-10-22] MEDS ORDERED: ONDANSETRON 4 MG/2 ML (SDV) Z0FRAN IVP ONE (17:15)
--- NOTE | 2016-10-22 17:16 | ED General ---
General Chief Complaint: Dental Problems/Pain Stated Complaint: FEVER/DENTAL ABSCESS/POSS INFECTION Nursing Triage Note: PT CO OF DENTAL PAIN, STATES HAS HAD SINCE FRIDAY, SEEN BY DENTIST ON FRIDAY STARTED ON CLIDAMYCIN, STARTED RUNNING FEVER TODAY 101.0, STATES IS ON CHEMO FOR LYMPHOMA. Nursing Sepsis Screen: Possible Sepsis Risk Source of Information: Patient Exam Limitations: No Limitations History of Present Illness Time Seen by Provider: 16:50 Initial Comments Here with report of fever, increased tiredness and not feeling well as well as having a right posterior dental abscess. He is currently on clindamycin. Patient history complicated by the fact that he is on chemotherapy for non- Hodgkin's lymphoma. Last therapy was 2 weeks ago and he is between therapy in that he has his next scheduled therapy in 2 weeks. Admits to not feeling well and increasing tiredness. Also complains of dental pain in the area of concern. Denies breathing problems, cough, nausea, vomiting or diarrhea. He follows under Dr. Madden and Dr. Kuo. Timing/Duration: 2-3 Days, Getting Worse Severity: Moderate Associated Systoms: No Chest Pain, Fever/Chills, Malaise, No Nausea/Vomiting, No Shortness of Air, No Weakness Allergies and Home Medications Allergies Coded Allergies: sulfamethoxazole (Verified Allergy, Unknown, 10/07/08) trimethoprim (Verified Allergy, Unknown, 10/07/08) Home Medications Amlodipine Besylate 5 Mg Tablet, 5 MG PO DAILY, (Reported) Clopidogrel Bisulfate 75 Mg Tablet, 75 MG PO DAILY, (Reported) Fenofibrate,Micronized 134 Mg Capsule, 134 MG PO DAILY, (Reported) Hydrocodone/Acetaminophen 1 Each Tablet, 1-2 EACH PO Q4-6 HRS PRN for PAIN, #30 Prescribed by: MINH BEASLEY on 08/21/16 1539 Metformin Hcl 500 Mg Tablet, 1,000 MG PO BID WITH MEALS, (Reported) take 2 (500mg) tabs Metoprolol Tartrate 50 Mg Tablet, 50 MG PO BID, (Reported) Rosuvastatin Calcium 5 Mg Tablet, 5 MG PO HS, (Reported) Constitutional: see HPI, chills, fever, malaise EENTM: dental problems, mouth pain, mouth swelling, see HPI, No hoarseness, No nose congestion, No throat swelling Respiratory: no symptoms reported, No cough, No short of breath Cardiovascular: No chest pain, No edema Gastrointestinal: No abdominal pain, No nausea, No vomiting Genitourinary: no symptoms reported Musculoskeletal: no symptoms reported Skin: no symptoms reported All Other Systems Reviewed Negative Unless Noted: Yes Past Yuizgmy-Obexkf-Avepqv Hx Patient Social History Alcohol Use: Occasionally Uses Recreational Drug Use: No Smoking Status: Former Smoker Type Used: Cigarettes Recent Foreign Travel: No Contact w/Someone Who Travel: No Recent Infectious Disease Expo: No Recent Hopitalizations: No Immunizations Up To Date Tetanus Booster (TDap): Unknown Date of Pneumonia Vaccine: May 28, 2009 Date of Influenza Vaccine: Jun 29, 2016 Seasonal Allergies Seasonal Allergies: No Surgeries HX Surgeries: Yes (TURP, BACK SX) Surgeries: Coronary Stent Respiratory Hx Respiratory Disorders: No Cardiovascular Hx Cardiac Disorders: Yes (STENT x1) Cardiac Disorders: Coronary Artery Disease, High Cholesterol, Hypertension Neurological Hx Neurological Disorders: No Reproductive System Hx Reproductive Disorders: No Sexually Transmitted Disease: No HIV/AIDS: No Genitourinary Hx Genitourinary Disorders: No Gastrointestinal Hx Gastrointestinal Disorders: No Musculoskeletal Hx Musculoskeletal Disorders: Yes Musculoskeletal Disorders: Arthritis Endocrine Hx Endocrine Disorders: Yes Endocrine Disorders: Diabetes, Non-Insulin dep HEENT HX ENT Disorders: Yes (CATARACTS REMOVED) Loss of Vision: Denies Hearing Impairment: Denies Cancer Hx Cancer: Yes Cancer: Prostate, Lymphoma Psychosocial Hx Psychiatric Problems: No Integumentary HX Skin/Integumentary Disorder: No Blood Transfusions Hx Blood Disorders: No Adverse Reaction to a Blood Tr: No (N/A) Reviewed Nursing Assessment Reviewed/Agree w Nursing PMH: Yes Family Medical History Significant Family History: No Pertinent Family Hx Physical Exam-Suspected Sepsis Physical Exam Vital Signs Vital Sign - Last 12Hours 10/22/16 16:35 Temp 100.0 Pulse 130 Resp 18 B/P (MAP) 169/95 Pulse Ox 96 Capillary Refill : Less Than 3 Seconds Blood Pressure Mean: 119 General Appearance: No Apparent Distress, WD/WN HEENT: PERRL/EOMI, TMs Normal, No Pharyngeal Erythema, Other (tender near the base of the right posterior lower tooth. Redness noted around area of concern.) Neck: Non Tender, Supple Respiratory: Lungs Clear, Normal Breath Sounds Cardiovascular: No Murmur, Tachycardia Gastrointestinal: Non Tender, Soft Back: Normal Inspection, No CVA Tenderness, No Vertebral Tenderness Extremity: Non Tender, No Calf Tenderness Neurologic/Psychiatric: Alert, Oriented x3 Skin: normal color, warm/dry Focused Exam Lactic Acid Level Laboratory Tests Test 10/22/16 17:05 Lactic Acid Level 0.79 MMOL/L (0.50-2.00) Progress/Results/Core Measures Suspected Sepsis Recent Fever Within 48 Hours: Yes Infection Criteria Present: Suspected New Infection New/Unexplained Altered Menta: No Sepsis Screen: Possible Sepsis Risk Sepsis Diagnosis: SIRS Temperature:100.0 Pulse: 130 Respiratory Rate: 18 Laboratory Tests 10/22/16 17:05: White Blood Count 1.7L Blood Pressure 169 /95 Mean: 119 Laboratory Tests 10/22/16 17:05: Creatinine 0.82, INR Comment 1.2, Platelet Count 162, Total Bilirubin 0.5 Results/Orders Lab Results Laboratory Tests Test 10/22/16 17:05 Range/Units White Blood Count 1.7 L 4.3-11.0 10^3/uL Red Blood Count 4.76 4.35-5.85 10^6/uL Hemoglobin 14.3 13.3-17.7 G/DL Hematocrit 42 40-54 % Mean Corpuscular Volume 87 80-99 FL Mean Corpuscular Hemoglobin 30 25-34 PG Mean Corpuscular Hemoglobin Concent 35 32-36 G/DL Red Cell Distribution Width 13.5 10.0-14.5 % Platelet Count 162 130-400 10^3/uL Mean Platelet Volume 9.7 7.4-10.4 FL Neutrophils (%) (Auto) 58 42-75 % Lymphocytes (%) (Auto) 23 12-44 % Monocytes (%) (Auto) 14 H 0-12 % Eosinophils (%) (Auto) 4 0-10 % Basophils (%) (Auto) 1 0-10 % Neutrophils # (Auto) 1.0 L 1.8-7.8 X 10^3 Lymphocytes # (Auto) 0.4 L 1.0-4.0 X 10^3 Monocytes # (Auto) 0.2 0.0-1.0 X 10^3 Eosinophils # (Auto) 0.1 0.0-0.3 10^3/uL Basophils # (Auto) 0.0 0.0-0.1 10^3/uL Prothrombin Time 15.3 H 12.2-14.7 SEC INR Comment 1.2 0.8-1.4 Activated Partial Thromboplast Time 72 H 24-35 SEC Sodium Level 137 135-145 MMOL/L Potassium Level 3.9 3.6-5.0 MMOL/L Chloride Level 106 98-107 MMOL/L Carbon Dioxide Level 21 21-32 MMOL/L Anion Gap 10 5-14 MMOL/L Blood Urea Nitrogen 10 7-18 MG/DL Creatinine 0.82 0.60-1.30 MG/DL Estimat Glomerular Filtration Rate > 60 BUN/Creatinine Ratio 12 Glucose Level 135 H 70-105 MG/DL Lactic Acid Level 0.79 0.50-2.00 MMOL/L Calcium Level 8.7 8.5-10.1 MG/DL Total Bilirubin 0.5 0.1-1.0 MG/DL Aspartate Amino Transf (AST/SGOT) 13 5-34 U/L Alanine Aminotransferase (ALT/SGPT) 20 0-55 U/L Alkaline Phosphatase 40 40-136 U/L Total Protein 5.6 L 6.4-8.2 G/DL Albumin 3.5 3.2-4.5 G/DL My Orders Orders - HUSAM RAI MD Cbc With Automated Diff (10/22/16 17:02) Comprehensive Metabolic Panel (10/22/16 17:02) Lactic Acid Analyzer (10/22/16 17:02) Blood Culture (10/22/16 17:02) Sputum Culture (10/22/16 17:02) Ua Culture If Indicated (10/22/16 17:02) Protime With Inr (10/22/16 17:02) Partial Thromboplastin Time (10/22/16 17:02) Chest 1 View, Ap/Pa Only (10/22/16 17:02) O2 (10/22/16 17:02) Saline Lock/Iv-Start (10/22/16 17:02) Vital Signs Adult Sepsis Patie Q1HR (10/22/16 17:02) Remove Rings In Anticipation O (10/22/16 17:02) Fentanyl Injection (Sublimaze Injection (10/22/16 17:02) Ketorolac Injection (Toradol Injection) (10/22/16 17:02) Ondansetron Injection (Zofran Injectio (10/22/16 17:15) Ns Iv 1000 Ml (Sodium Chloride 0.9%) (10/22/16 17:13) Ceftriaxone Injection (Rocephin Injectio (10/22/16 18:00) Tbo-Filgrastim Injection (Granix Injecti (10/22/16 18:00) Hydromorphone Injection (Dilaudid Inject (10/22/16 18:10) Medications Given in ED Current Medications Medications Dose Ordered Sig/Christopher Route Start Time Stop Time Status Last Admin Dose Admin Ondansetron HCl 4 mg ONCE ONCE IVP 10/22/16 17:15 10/22/16 17:16 DC 10/22/16 17:15 4 MG Sodium Chloride 1,000 ml @ ud STK-MED ONCE .ROUTE 10/22/16 17:13 10/22/16 17:16 DC 10/22/16 17:15 1,000 MLS/HR Vital Signs/I&O Vital Sign - Last 12Hours 10/22/16 16:35 Temp 100.0 Pulse 130 Resp 18 B/P (MAP) 169/95 Pulse Ox 96 Capillary Refill : Less Than 3 Seconds Blood Pressure Mean: 119 Progress Note : Progress Note Seen and evaluated. IV, labs, UA and chest x-ray ordered. Sputum culture ordered. Blood cultures and lactic acid ordered. Fentanyl 50 g IV and Toradol 30 mg IV ordered. Normal saline 1 L bolus. Monitor patient. 1751: I did discuss the case with Dr. Madden. Patient's white cell count and neutrophil count are low in the setting of fever and infection from probable tooth abscess. We will initiate Rocephin 1 g IV. We will continue that daily as well as clindamycin 900 mg IV every [address] Madden is recommending grand next 480 mg subcutaneous daily which I will order with the first dose to be given in the ER. Patient to be admitted, inpatient status. I did discuss the case with Dr. Kuo at 1559 and he accepts patient for admission, inpatient status with Dr. Madden on consult. Discussed with patient and family who agree with plan although patient is somewhat reluctant because he does not want to stay in the hospital. Dilaudid 0.5 mg IV for breakthrough pain. We will try this for longer acting dosing as the fentanyl did work but just did not last very long. Patient does meet criteria for sepsis but not severe sepsis or septic shock and does not require high-volume fluid resuscitation at this time. Diagnostic Imaging Diagonstic Imaging: Xray Plain Films/CT/US/NM/MRI: chest Comments VIA [facility], [facility]. [place], [place] NAME: ÓSCAR CLARKE [facility] REC#: [id number] PT STATUS: REG ER : 1945 PHYSICIAN: HUSAM RAI MD ADMIT DATE: 10/22/16/ER Draft Date of Exam:10/22/16 CHEST 1 VIEW, AP/PA ONLY CHEST 1 VIEW, AP/PA ONLY INDICATION: Fever with dental abscess. COMPARISON: 09/05/2016. FINDINGS: Stable left subclavian Port-A-Cath. No focal airspace disease in the visualized lungs. Please note that the posterior lower lobes are poorly evaluated by portable radiography. No pleural effusion or pneumothorax. Normal cardiomediastinal silhouette. IMPRESSION: No acute cardiopulmonary process by portable radiography. Dictated on workstation # [id number] Dict: 10/22/16 1716 Trans: 10/22/16 1718 [id number] Interpreted by: VICK MOURA MD Electronically signed by: Departure Communication Time/Spoke to Admitting Phy: 17:59 Time/Spoke to Consulting Physi: 17:51 Impression Impression: Primary Impression: Neutropenic fever Additional Impressions: Dental abscess Non Hodgkin's lymphoma Qualified Codes: C85.90 - Non-Hodgkin lymphoma, unspecified, unspecified site Disposition: ADMITTED INPATIENT Condition: Stable Decision to Admit Reason: Admit from ER (General) Decision to Admit/Date: Oct 22, 2016 Time/Decision to Admit Time: 17:51 Departure-Patient Inst. Referrals: LARRY KUO DO (PCP/Family) Primary Care Physician HUSAM RAI MD Oct 22, 2016 17:16
--- NOTE | 2016-10-22 17:19 | Diagnostic Imaging Report ---
CHEST 1 VIEW, AP/PA ONLY INDICATION: Fever with dental abscess. COMPARISON: 09/05/2016. FINDINGS: Stable left subclavian Port-A-Cath. No focal airspace disease in the visualized lungs. Please note that the posterior lower lobes are poorly evaluated by portable radiography. No pleural effusion or pneumothorax. Normal cardiomediastinal silhouette. IMPRESSION: No acute cardiopulmonary process by portable radiography. Dictated by: Dictated on workstation # [id number]
[2016-10-22 17:24] LABS: BASOPHILS % (AUTO) 1 % (0-10); EOSINOPHILS # (AUTO) 0.1 10^3/uL (0.0-0.3); EOSINOPHILS % (AUTO) 4 % (0-10); LYMPHOCYTES # (AUTO) 0.4 X 10^3 (1.0-4.0); LYMPHOCYTES % (AUTO) 23 % (12-44); MEAN CORPUSCULAR HEMOGLOBIN 30 PG (25-34); MEAN CORPUSCULAR HGB CONC 35 G/DL (32-36); MEAN CORPUSCULAR VOLUME 87 FL (80-99); MEAN PLATELET VOLUME 9.7 FL (7.4-10.4); MONOCYTES # (AUTO) 0.2 X 10^3 (0.0-1.0); MONOCYTES % (AUTO) 14 % (0-12); NEUTROPHILS % (AUTO) 58 % (42-75); PLATELET COUNT 162 10^3/uL (130-400); RED BLOOD COUNT 4.76 10^6/uL (4.35-5.85); RED CELL DISTRIBUTION WIDTH 13.5 % (10.0-14.5); WHITE BLOOD COUNT 1.7 10^3/uL (4.3-11.0)
[2016-10-22 17:35] LABS: INR 1.2 (0.8-1.4); PROTHROMBIN TIME PATIENT 15.3 SEC (12.2-14.7)
[2016-10-22 17:48] LABS: ALANINE AMINOTRANSFERASE 20 U/L (0-55); ALBUMIN 3.5 G/DL (3.2-4.5); ANION GAP 10 MMOL/L (5-14); ASPARTATE AMINO TRANSFERASE 13 U/L (5-34); BILIRUBIN,TOTAL 0.5 MG/DL (0.1-1.0); BLOOD UREA NITROGEN 10 MG/DL (7-18); BUN/CREATININE RATIO 12; CALCIUM 8.7 MG/DL (8.5-10.1); CARBON DIOXIDE 21 MMOL/L (21-32); CHLORIDE 106 MMOL/L (98-107); CREATININE SERUM 0.82 MG/DL (0.60-1.30); GFR ESTIMATED > 60; GLUCOSE 135 MG/DL (70-105); POTASSIUM 3.9 MMOL/L (3.6-5.0); SODIUM 137 MMOL/L (135-145); TOTAL PROTEIN 5.6 G/DL (6.4-8.2)
[2016-10-22] MEDS ORDERED: cefTRIAXone INJECTION 1,000 MG in NS (IVPB) 50 ML IV ONE (18:00)
[2016-10-22] MEDS ORDERED: TBO-FILGRASTIM 480 MCG/0.8 ML (GRANIX) SQ SCH (18:00)
[2016-10-22] MEDS ORDERED: HYDROmorphone (DILAUDID) 2 MG/ML VIAL IVP STA (18:10)
[2016-10-22] MEDS ORDERED: ACETAMINOPHEN 500 MG TAB (TYLENOL) PO PRN (19:15)
[2016-10-22] MEDS ORDERED: ONDANSETRON 4 MG/2 ML (SDV) Z0FRAN IV PRN (19:15)
[2016-10-22 19:30] VITALS: BP 148/76
[2016-10-22] MEDS: NS IV 1000 ML 1,000 ML IV SCH (21:10)
[2016-10-22] MEDS: CLINDAMYCIN 900 MG/50 ML IVPB 50 ML IV SCH (21:11)
[2016-10-22 22:10] LABS: KETONES,URINE 1+ (NEGATIVE); LEUKOCYTE ESTERASE ,URINE 1+ (NEGATIVE); NITRITE,URINE NEGATIVE (NEGATIVE); PH,URINE 5 (5-9); PROTEIN,URINE 2+ (NEGATIVE); UROBILINOGEN,URINE NORMAL (NORMAL)
[2016-10-22 22:19] LABS: BILIRUBIN,URINE 1+ (NEGATIVE)
[2016-10-22 22:21] LABS: CALCIUM OXALATE CRYSTALS,UR LARGE /LPF; WBC,URINE 0-2 /HPF
[2016-10-23] VITALS: BP 127/85
[2016-10-23 04:00] VITALS: BP 119/71
[2016-10-23] MEDS: HYDROmorphone (DILAUDID) 2 MG/ML VIAL IV PRN ×2 (04:31→14:53)
[2016-10-23] MEDS: CLINDAMYCIN 900 MG/50 ML IVPB 50 ML IV SCH ×2 (05:15→14:53)
[2016-10-23 05:23] LABS: BASOPHILS % (AUTO) 1 % (0-10); EOSINOPHILS # (AUTO) 0.1 10^3/uL (0.0-0.3); EOSINOPHILS % (AUTO) 3 % (0-10); LYMPHOCYTES # (AUTO) 0.4 X 10^3 (1.0-4.0); LYMPHOCYTES % (AUTO) 19 % (12-44); MEAN CORPUSCULAR HEMOGLOBIN 31 PG (25-34); MEAN CORPUSCULAR HGB CONC 35 G/DL (32-36); MEAN CORPUSCULAR VOLUME 88 FL (80-99); MEAN PLATELET VOLUME 9.7 FL (7.4-10.4); MONOCYTES # (AUTO) 0.3 X 10^3 (0.0-1.0); MONOCYTES % (AUTO) 17 % (0-12); NEUTROPHILS # (AUTO) 1.1 X 10^3 (1.8-7.8); NEUTROPHILS % (AUTO) 60 % (42-75); PLATELET COUNT 140 10^3/uL (130-400); RED BLOOD COUNT 4.21 10^6/uL (4.35-5.85); RED CELL DISTRIBUTION WIDTH 13.4 % (10.0-14.5); WHITE BLOOD COUNT 1.9 10^3/uL (4.3-11.0)
[2016-10-23 05:37] LABS: ALANINE AMINOTRANSFERASE 15 U/L (0-55); ANION GAP 7 MMOL/L (5-14); ASPARTATE AMINO TRANSFERASE 13 U/L (5-34); BILIRUBIN,TOTAL 0.4 MG/DL (0.1-1.0); BLOOD UREA NITROGEN 9 MG/DL (7-18); BUN/CREATININE RATIO 13; CALCIUM 8.2 MG/DL (8.5-10.1); CARBON DIOXIDE 21 MMOL/L (21-32); CHLORIDE 111 MMOL/L (98-107); GFR ESTIMATED > 60; GLUCOSE 124 MG/DL (70-105); POTASSIUM 3.8 MMOL/L (3.6-5.0); SODIUM 139 MMOL/L (135-145); TOTAL PROTEIN 4.9 G/DL (6.4-8.2)
[2016-10-23 08:00] VITALS: BP 141/78
--- NOTE | 2016-10-23 08:22 | History & Physicial ---
History of Present Illness History of Present Illness Reason for visit/HPI Patient came to the emergency room yesterday. Patient having a fever and dental abscess Patient has history of non-Hodgkin's lymphoma and on chemotherapy now. White blood cell count 1700 yesterday today 1.9. Patient saw dentist last Friday and put on clindamycin for dental abscess on lower right side of the down in back. Patient has a history of the right gum bothering him. Surgeries TURP, back, stent coronary and port for chemotherapy Date of Admission Oct 22, 2016 at 18:26 I consulted on this patient on 10/23/16 08:17 Attending Physician Hao Kuo DO Admitting Physician Hao Kuo DO Consult Allergies and Home Medications Allergies Coded Allergies: sulfamethoxazole (Verified Allergy, Unknown, 10/07/08) trimethoprim (Verified Allergy, Unknown, 10/07/08) Home Medications Amlodipine Besylate 5 Mg Tablet, 5 MG PO DAILY, (Reported) Clopidogrel Bisulfate 75 Mg Tablet, 75 MG PO DAILY, (Reported) Fenofibrate,Micronized 134 Mg Capsule, 134 MG PO DAILY, (Reported) Hydrocodone/Acetaminophen 1 Each Tablet, 1-2 EACH PO Q4-6 HRS PRN for PAIN, #30 Prescribed by: MINH BEASLEY on 08/21/16 1539 Metformin Hcl 500 Mg Tablet, 1,000 MG PO BID WITH MEALS, (Reported) take 2 (500mg) tabs Metoprolol Tartrate 50 Mg Tablet, 50 MG PO BID, (Reported) Rosuvastatin Calcium 5 Mg Tablet, 5 MG PO HS, (Reported) Past Akirorr-Ktnxjs-Khwfkq Hx Patient Social History Alcohol Use: Denies Use Recreational Drug Use: No Smoking Status: Former Smoker Type Used: Cigarettes Physical Abuse Screen: No Sexual Abuse: No Recent Foreign Travel: No Contact w/other who traveled: No Recent Hopitalizations: No Recent Infectious Disease Expo: No Immunizations Up To Date Tetanus Booster (TDap): Unknown Date of Pneumonia Vaccine: May 28, 2016 Date of Influenza Vaccine: Jun 29, 2016 Seasonal Allergies Seasonal Allergies: No Surgeries HX Surgeries: Yes (TURP, BACK SX) Surgeries: Coronary Stent Respiratory Hx Respiratory Disorders: No Cardiovascular Hx Cardiovascular Disorders: Yes (STENT x1) Cardiac Disorders: Coronary Artery Disease, High Cholesterol, Hypertension Neurological Hx Neurological Disorders: No Reproductive System Hx Reproductive Disorders: No Sexually Transmitted Disease: No HIV/AIDS: No Genitourinary Hx Genitourinary Disorders: No Gastrointestinal Hx Gastrointestinal Disorders: No Musculoskeletal Hx Musculoskeletal Disorders: Yes Musculoskeletal Disorders: Arthritis Endocrine Hx Endocrine Disorders: Yes Endocrine Disorders: Diabetes, Non-Insulin dep HEENT HX ENT Disorders: Yes (CATARACTS REMOVED) Loss of Vision: Denies Hearing Impairment: Denies Cancer Hx Cancer: Yes Cancer: Prostate, Lymphoma Psychosocial Hx Psychiatric Problems: No Integumentary HX Skin/Integumentary Disorder: No Blood Transfusions Hx Blood Disorders: No Adverse Reaction to a Blood Tr: No (N/A) Reviewed Nursing Assessment Reviewed/Agree w Nursing PMH: Yes Family Medical History Significant Family History: No Pertinent Family Hx Family Hx: Patient reports no known family medical history. Constitutional: fever EENTM: dental problems Respiratory: no symptoms reported Cardiovascular: no symptoms reported Gastrointestinal: no symptoms reported Physical Exam Vital Signs Vital Sign - Last 12Hours 10/22/16 10/22/16 16:35 18:41 Temp 100.0 Pulse 130 Resp 18 B/P (MAP) 169/95 Pulse Ox 96 O2 Delivery Room Air Capillary Refill : Less Than 3 Seconds General Appearance: No Apparent Distress, WD/WN Eyes: Bilateral Eye Normal Inspection HEENT: Normal ENT Inspection, Other (Gum appears inflamed right lower mouth) Neck: Full Range of Motion, Normal Inspection, Non Tender Respiratory: Chest Non Tender, Lungs Clear, Normal Breath Sounds, No Accessory Muscle Use, No Respiratory Distress Cardiovascular: Regular Rate, Rhythm, No Murmur Gastrointestinal: Non Tender, Soft Assessment/Plan Assessment and Plan Fever. Dental abscess. Leukopenia. Non-Hodgkin's lymphoma. Coronary artery disease Problems: Clinical Quality Measures DVT/VTE Risk/Contraindication: Risk Factor Score Per Nursin RFS Level Per Nursing on Admit: 4+=Very High HAO KUO DO Oct 23, 2016 08:22
[2016-10-23] MEDS: TBO-FILGRASTIM 480 MCG/0.8 ML (GRANIX) SQ SCH (09:27)
[2016-10-23] MEDS: NS IV 1000 ML 1,000 ML IV SCH (09:27)
[2016-10-23] MEDS: cefTRIAXone 1 GM/NS 50 ML IVPB IV SCH ×2 (09:31)
[2016-10-23] MEDS ORDERED: ROSU20TA28 PO (10:22)
[2016-10-23] MEDS ORDERED: CLIN150C17 PO (10:26)
[2016-10-23] MEDS ORDERED: PRD20T PO (10:26)
[2016-10-23 12:00] VITALS: BP 155/78
[2016-10-23] MEDS ORDERED: CATHETER FLUSH 10 ML SYR IV PRN (15:15)
[2016-10-23] MEDS: CLOPIDOGREL 75 MG (PLAVIX) TABLET PO SCH (15:48)
[2016-10-23 16:00] VITALS: BP 157/84
[2016-10-23] MEDS ORDERED: metFORMIN 500 MG (GLUCOPHAGE) TAB PO SCH (17:00)
[2016-10-23 19:10] VITALS: BP 173/94
[2016-10-23] MEDS ORDERED: ROSUVASTATIN 20 MG (CRESTOR) TABLET PO SCH (21:00)
[2016-10-23] MEDS: meTOprolol TARTRATE 50 MG (LOPRESSOR) TAB PO SCH (21:28)
[2016-10-24] VITALS: BP 168/74
[2016-10-24] MEDS: NS IV 1000 ML 1,000 ML IV SCH ×2 (00:48→02:53)
[2016-10-24 06:55] LABS: BASOPHILS % (AUTO) 0 % (0-10); EOSINOPHILS # (AUTO) 0.1 10^3/uL (0.0-0.3); EOSINOPHILS % (AUTO) 1 % (0-10); LYMPHOCYTES # (AUTO) 0.8 X 10^3 (1.0-4.0); LYMPHOCYTES % (AUTO) 10 % (12-44); MEAN CORPUSCULAR HEMOGLOBIN 30 PG (25-34); MEAN CORPUSCULAR HGB CONC 35 G/DL (32-36); MEAN CORPUSCULAR VOLUME 87 FL (80-99); MEAN PLATELET VOLUME 9.9 FL (7.4-10.4); MONOCYTES # (AUTO) 0.9 X 10^3 (0.0-1.0); MONOCYTES % (AUTO) 13 % (0-12); NEUTROPHILS # (AUTO) 5.6 X 10^3 (1.8-7.8); NEUTROPHILS % (AUTO) 76 % (42-75); PLATELET COUNT 155 10^3/uL (130-400); RED BLOOD COUNT 4.37 10^6/uL (4.35-5.85); RED CELL DISTRIBUTION WIDTH 13.3 % (10.0-14.5); WHITE BLOOD COUNT 7.4 10^3/uL (4.3-11.0)
[2016-10-24 07:10] LABS: ANION GAP 9 MMOL/L (5-14); BLOOD UREA NITROGEN 5 MG/DL (7-18); BUN/CREATININE RATIO 7; CALCIUM 8.7 MG/DL (8.5-10.1); CARBON DIOXIDE 20 MMOL/L (21-32); CHLORIDE 110 MMOL/L (98-107); GFR ESTIMATED > 60; GLUCOSE 98 MG/DL (70-105); POTASSIUM 3.5 MMOL/L (3.6-5.0); SODIUM 139 MMOL/L (135-145)
[2016-10-24 07:50] LABS: BAND NEUTROPHILS 36 %; BASOPHILS % (MANUAL) 1 %; EOSINOPHILS % (MANUAL) 2 %; LYMPHOCYTES % (MANUAL) 10 %; NEUTROPHILS % (MANUAL) 39 %
[2016-10-24 08:00] VITALS: BP 170/92
--- NOTE | 2016-10-24 08:06 | Progress Note (SOAP) ---
Subjective Subjective/Events-last exam patient feels 80 percent better. Neutropenia resolved. Fever resolved. tooth abscess. Patient taking fluids. Afebrile. Patient still having pain when touch gum below tooth Objective Exam Vital Signs Date Time Temp Pulse Resp B/P (MAP) Pulse Ox O2 Delivery O2 Flow Rate FiO2 10/24/16 00:00 98.9 84 20 168/74 95 Room Air 10/23/16 19:10 99.6 106 18 173/94 96 Room Air 10/23/16 16:00 99.0 98 18 157/84 95 Room Air 10/23/16 12:00 98.8 102 18 155/78 99 Room Air I & O 10/24/16 07:00 Intake Total 3640 ml Balance 3640 ml Capillary Refill : Less Than 3 Seconds General Appearance: No Apparent Distress, WD/WN HEENT: Normal ENT Inspection, Other (gum hurts to palpation with) Neck: Full Range of Motion, Normal Inspection Respiratory: Chest Non Tender, Lungs Clear, Normal Breath Sounds, No Accessory Muscle Use, No Respiratory Distress Cardiovascular: Regular Rate, Rhythm, No Murmur Gastrointestinal: normal bowel sounds Results Lab Laboratory Tests 10/24/16 06:45 Laboratory Tests 10/24/16 06:45: White Blood Count 7.4, Red Blood Count 4.37, Hemoglobin 13.2L, Hematocrit 38L, Mean Corpuscular Volume 87, Mean Corpuscular Hemoglobin 30, Mean Corpuscular Hemoglobin Concent 35, Red Cell Distribution Width 13.3, Platelet Count 155, Mean Platelet Volume 9.9, Neutrophils (%) (Auto) 76H, Lymphocytes (%) (Auto) 10L , Monocytes (%) (Auto) 13H, Eosinophils (%) (Auto) 1, Basophils (%) (Auto) 0, Neutrophils # (Auto) 5.6, Lymphocytes # (Auto) 0.8L, Monocytes # (Auto) 0.9, Eosinophils # (Auto) 0.1, Basophils # (Auto) 0.0, Neutrophils % (Manual) 39, Lymphocytes % (Manual) 10, Monocytes % (Manual) 12, Eosinophils % (Manual) 2, Basophils % (Manual) 1, Band Neutrophils 36, Blood Morphology Comment NORMAL, Sodium Level 139, Potassium Level 3.5L, Chloride Level 110H, Carbon Dioxide Level 20L, Anion Gap 9, Blood Urea Nitrogen 5L, Creatinine 0.70, Estimat Glomerular Filtration Rate > 60, BUN/Creatinine Ratio 7, Glucose Level 98, Calcium Level 8.7 Microbiology 10/22/16 Blood Culture - Preliminary, Resulted No growth 10/23/16 C. difficile GDH Antigen & Toxins - Final, Complete Assessment/Plan Assessment/Plan Assess & Plan/Chief Complaint neutropenia. Fever. tooth abscess Lymphoma non-Hodgkin's. Patient feeling better today is 80 percent better Clinical Quality Measures DVT/VTE Risk/Contraindication: Risk Factor Score Per Nursin RFS Level Per Nursing on Admit: 4+=Very High LARRY KUO DO Oct 24, 2016 08:06
--- NOTE | 2016-10-24 08:15 | CONSULTATION REPORT ---
DATE OF CONSULTATION: 10/23/2016 The patient is admitted to Room 421. REFERRING AND PRIMARY PHYSICIAN: Hao Gutierrez D.O. IMPRESSION: 1. 71-year-old male admitted with right lower jaw pain and fever. The patient was evaluated a day before the admission by his dentist with infected tooth and started on oral antibiotics with clindamycin. 2. History of diffuse large B-cell non-Hodgkin's lymphoma involving right neck and pelvis. Currently on chemotherapy with CHOP-Rituxan regimen and has completed 2 cycles of chemotherapy. His last course of chemotherapy was on 10/09/2016. 3. Neutropenia due to chemotherapy. RECOMMENDATIONS: 1. Agree with broad spectrum antibiotic coverage for an infected tooth. 2. We will start patient on Neupogen 480 mcg subcutaneous daily until absolute neutrophil count is more than 10,000. 3. Once his blood counts are better and the tooth infection improved, he will need either extraction or root canal to control the tooth problem. 4. I will delay the next round of chemotherapy until his dental problems have been taking care of. 5. The patient will need growth factor support following the next cycle of chemotherapy to prevent neutropenic fever. BRIEF HISTORY: Mr. Hdez is a 71-year-old male who started having right lower jaw pain and was evaluated by his dentist. He was noted to have an infected tooth and started on oral antibiotics with clindamycin. As his symptoms were worsening, he came to the emergency room and was found to be neutropenic with a fever. He was admitted to the hospital for broad spectrum IV antibiotic coverage. He has history of diffuse large B-cell non-Hodgkin's lymphoma and is undergoing chemotherapy currently. Because of the neutropenia fever an oncology consultation was requested. PAST MEDICAL HISTORY: Significant for: 1. Recent diagnosis of diffuse large B-cell non-Hodgkin's lymphoma late July 2016. He was started on chemotherapy with CHOP plus Rituxan regimen and has completed 2 cycles of chemotherapy. Last cycle of chemotherapy was on 10/09/2016. 2. Other significant history includes diabetes melitis type II diagnosed approximately 12 years ago and treated with oral agents. 3. Hypertension diagnosed approximately at the same time and is on treatment for this. 4. Coronary artery disease requiring a single stent placement in 2009. 5. Hypercholesterolemia diagnosed in 2009 and is on treatment. PRIOR SURGERIES INCLUDE: 1. Low back surgery for ruptured disk in 1991. 2. TURP in 2001 for BPH. 3. Cardiac catheterization and stent placement in 2009. 4. Right neck lymph node excisional biopsy in late July 2016. 5. Port insertion in early August 2016. SOCIAL HISTORY: The patient is and lives in [place], [place]. He has 2 sons aged 53 and 46 years, both of whom live in the [place] area. 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 He retired in 1992. He has smoked 1/2 pack of cigarettes for 45 years but quit 10 years ago. He has used alcohol socially but denied any recreational drug use. FAMILY HISTORY: Family history is unremarkable with no history of malignancies in the family. His father who had coronary artery disease and a grandmother had diabetes melitis. PHYSICAL EXAMINATION: Today showed an elderly male, well-developed and nourished, awake, and oriented and otherwise in no acute distress. VITAL SIGNS: Temperature was 98.8, pulse rate of 102, respirations 18, and blood pressure 155/78. HEENT: Normocephalic with slight male pattern baldness. Extraocular muscles intact. Conjunctivae pink, oral mucosa was moist. There was no obvious abscess or erythema of the right lower molar. There is slight swelling of the gum in the right lower molar area. NECK: Supple with no JVD. Previous healed scar on the right neck noted. Previously noted lymphadenopathy in the right neck area has improved significantly. No other lymphadenopathy palpable in the cervical, supraclavicular, or axillary regions. CHEST: Chest was symmetrical with an implanted port. LUNGS: Fairly clear to auscultation without wheezes or rales. CARDIOVASCULAR EXAM: Regular in rate and rhythm. No murmurs or gallops heard. ABDOMEN: Soft, nontender, with no hepatosplenomegaly or other masses palpable. EXTREMITIES: Showed no edema. NEUROLOGICAL EXAM: Grossly intact without focal motor deficits. LABORATORY: I reviewed his lab work. CBC done today showed white count of 1.9, hemoglobin 12.9, and platelet count of 140,000 with neutrophil count of 1.1. CBC done yesterday at the time of admission, showed total WBC 1.7 and neutrophil count of 1.0. Chemistry panel done today showed relatively normal electrolytes. BUN was 9 and creatinine 0.7 with GFR more than 60 mL per minute. Nonfasting glucose was 124. Liver function studies were within normal limits except albumin level of 3.0. Blood cultures drawn yesterday showed no growth so far. Chest x-ray done yesterday at the time of admission, showed no acute cardiopulmonary process. Thank you for allowing me to participate in this patient's care. I will follow the patient with you and make appropriate recommendations. Job ID: [id number] Dictated Date: 10/23/2016 17:19:18 Lather Apprentice Date: 10/24/2016 07:58:36/robi AGUDELO
[2016-10-24] MEDS ORDERED: amLODIPine 5 MG (NORVASC) TAB PO SCH (09:00)
[2016-10-24] MEDS ORDERED: FENOFIBRATE 134 MG (LOFIBRA) CAPSULE PO SCH (09:00)
[2016-10-24] MEDS: cefTRIAXone 1 GM/NS 50 ML IVPB IV SCH ×2 (10:00)
[2016-10-24] MEDS: meTOprolol TARTRATE 50 MG (LOPRESSOR) TAB PO SCH (10:00)
[2016-10-24] MEDS: CLOPIDOGREL 75 MG (PLAVIX) TABLET PO SCH (10:01)
[2016-10-24] MEDS: TBO-FILGRASTIM 480 MCG/0.8 ML (GRANIX) SQ SCH (10:02)
[2016-10-24] MEDS ORDERED: AMOX500C2 PO (14:16)
[2016-10-24 14:32] VITALS: BP 170/92
--- NOTE | 2016-10-30 10:06 | Physician Query-Final Dx ---
Final Diagnosis Give Final Diagnosis Please give Final Diagnosis LISSETTE FIORE Oct 30, 2016 10:06
--- OUTSIDE RECORDS SUMMARY | 2016-11-10 04:51 | XMS REPORT | Continuity of Care Document ---
Author Author [facility] Organization [facility] Address Unknown Phone Unavailable Allergies Active Description Code Type Severity Reaction Onset Reported/Identified Relationship to Patient Clinical Status Yes sulfamethoxazole [id number] Drug Allergy Unknown N/A 10/07/2008 Yes trimethoprim [id number] Drug Allergy Unknown N/A 10/07/2008 Medications Problems [...] NOS 11/28/2010 Ot 414.01 CORONARY ATHEROSCLEROSIS OF [place] CORON 11/28/2010 Ot 415.19 OTH PULMON EMBOLISM/INFARCT 05/25/2012 Ot 211.4 BENIGN NEOPL RECTUM/ANUS 05/25/2012 Ot 250.00 DIAB DRISS WO COMPL, TYPE II OR UNSPEC TY 05/25/2012 Ot 272.0 PURE HYPERCHOLESTEROLEM 05/25/2012 Ot 401.9 HYPERTENSION NOS 05/25/2012 Ot 414.01 CORONARY ATHEROSCLEROSIS OF [place] CORON 05/25/2012 Ot 562.10 DIVERTICULOSIS COLON (W/O MENT OF HEMORR 05/25/2012 Ot V45.82 PERCUTANEOUS TRANSLUM CORON ANGIOPLASTY 05/25/2012 Ot V58.63 LONG-TERM(CURRENT)USE OF ANTIPLATELET/AN 05/25/2012 Ot V58.69 OTH MED,LT,CURRENT USE 05/25/2012 Ot V76.51 SCREEN MAL NEOP-COLON 06/05/2012 Ot 250.00 DIAB DRISS WO COMPL, TYPE II OR UNSPEC TY 06/05/2012 Ot 272.4 HYPERLIPIDEMIA NEC/NOS 06/05/2012 Ot 401.9 HYPERTENSION NOS 06/05/2012 Ot 414.01 CORONARY ATHEROSCLEROSIS OF [place] CORON 06/05/2012 Ot 562.10 DIVERTICULOSIS COLON (W/O [...] CCDS Ot 414.01 03/17/2015 VICTOR M FERRARI [facility], ALI FACP CCDS Ot V58.69 03/17/2015 BAIMA, APRIL L COMMUNICATIONS ENGINEERING TECHNICIAN Ot 272.4 03/17/2015 BAIMA, APRIL L COMMUNICATIONS ENGINEERING TECHNICIAN Ot 401.9 03/17/2015 BAIMA, APRIL L COMMUNICATIONS ENGINEERING TECHNICIAN Ot 414.01 03/17/2015 BAIMA, APRIL L COMMUNICATIONS ENGINEERING TECHNICIAN Ot 272.4 03/17/2015 BAIMA, APRIL L COMMUNICATIONS ENGINEERING TECHNICIAN Ot V58.69 03/17/2015 BAIMA, APRIL L COMMUNICATIONS ENGINEERING TECHNICIAN Ot 272.4 03/17/2015 BAIMA, APRIL L COMMUNICATIONS ENGINEERING TECHNICIAN Ot 414.00 03/17/2015 BAIMA, APRIL L COMMUNICATIONS ENGINEERING TECHNICIAN Ot 272.4 03/17/2015 BAIMA, APRIL L COMMUNICATIONS ENGINEERING TECHNICIAN Ot 414.00 03/17/2015 BAIMA, APRIL L COMMUNICATIONS ENGINEERING TECHNICIAN Ot 447.9 03/17/2015 LARRY KUO DO Ot 241.0 03/17/2015 BAIMA, APRIL L COMMUNICATIONS ENGINEERING TECHNICIAN Ot 272.4 03/17/2015 BAIMA, APRIL L COMMUNICATIONS ENGINEERING TECHNICIAN Ot 414.00 03/21/2015 BAIMA, APRIL L COMMUNICATIONS ENGINEERING TECHNICIAN Ot 272.4 03/24/2015 BAIMA, APRIL L COMMUNICATIONS ENGINEERING TECHNICIAN Ot 272.4 04/06/2015 BAIMA, APRIL L COMMUNICATIONS ENGINEERING TECHNICIAN Ot 272.4 07/05/2015 VENKAT NELSON MD [...] FACP CCDS Ot V58.69 09/15/2015 APRIL BARRON COMMUNICATIONS ENGINEERING TECHNICIAN Ot 272.4 09/15/2015 APRIL BARRON COMMUNICATIONS ENGINEERING TECHNICIAN Ot 401.9 09/15/2015 BAIMA, APRIL L COMMUNICATIONS ENGINEERING TECHNICIAN Ot 414.01 09/15/2015 BAIMA, APRIL L COMMUNICATIONS ENGINEERING TECHNICIAN Ot 272.4 09/15/2015 BAIMA, APRIL L COMMUNICATIONS ENGINEERING TECHNICIAN Ot V58.69 09/15/2015 BAIMA, APRIL L COMMUNICATIONS ENGINEERING TECHNICIAN Ot 272.4 09/15/2015 BAIMA, APRIL L COMMUNICATIONS ENGINEERING TECHNICIAN Ot 414.00 09/15/2015 BAIMA, APRIL L COMMUNICATIONS ENGINEERING TECHNICIAN Ot 272.4 09/15/2015 BAIMA, APRIL L COMMUNICATIONS ENGINEERING TECHNICIAN Ot 414.00 09/15/2015 BAIMA, APRIL L COMMUNICATIONS ENGINEERING TECHNICIAN Ot 447.9 09/15/2015 LARRY KUO DO A Ot 241.0 09/15/2015 BAIMA, APRIL L COMMUNICATIONS ENGINEERING TECHNICIAN Ot 272.4 09/15/2015 BAIMA, APRIL L COMMUNICATIONS ENGINEERING TECHNICIAN Ot 414.00 09/15/2015 BAIMA, APRIL L COMMUNICATIONS ENGINEERING TECHNICIAN Ot 272.4 09/15/2015 VENKAT NELSON MD Ot C61 10/09/2015 BAIMA, APRIL L COMMUNICATIONS ENGINEERING TECHNICIAN Ot E78.5 10/09/2015 BAIMA, APRIL L COMMUNICATIONS ENGINEERING TECHNICIAN Ot I25.10 03/15/2016 Ot 272.4 HYPERLIPIDEMIA NEC/NOS 03/15/2016 Ot 401.9 HYPERTENSION NOS 03/15/2016 Ot 414.01 CORONARY ATHEROSCLEROSIS OF [place] CORON 03/15/2016 Ot V58.69 OTH MED,LT,CURRENT USE 03/15/2016 Ot 272.4 HYPERLIPIDEMIA NEC/NOS 03/15/2016 Ot 401.9 HYPERTENSION NOS 03/15/2016 Ot 414.01 CORONARY ATHEROSCLEROSIS OF [place] CORON 03/15/2016 Ot 415.19 OTH PULMON EMBOLISM/INFARCT [...] FACP CCDS Ot 414.01 CORONARY ATHEROSCLEROSIS OF [place] CORON 03/15/2016 VICTOR M FERRARI FACC, ALI FACP CCDS Ot V58.69 OTH MED,LT,CURRENT USE 03/15/2016 BAIMA, APRIL L COMMUNICATIONS ENGINEERING TECHNICIAN Ot 272.4 HYPERLIPIDEMIA NEC/NOS 03/15/2016 BAIMA, APRIL L COMMUNICATIONS ENGINEERING TECHNICIAN Ot 401.9 HYPERTENSION NOS 03/15/2016 BAIMA, APRIL L COMMUNICATIONS ENGINEERING TECHNICIAN Ot 414.01 CORONARY ATHEROSCLEROSIS OF [place] CORON 03/15/2016 BAIMA, APRIL L COMMUNICATIONS ENGINEERING TECHNICIAN Ot 272.4 HYPERLIPIDEMIA NEC/NOS 03/15/2016 BAIMA, APRIL L COMMUNICATIONS ENGINEERING TECHNICIAN Ot V58.69 OTH MED,LT,CURRENT USE 03/15/2016 BAIMA, APRIL L COMMUNICATIONS ENGINEERING TECHNICIAN Ot 272.4 HYPERLIPIDEMIA NEC/NOS 03/15/2016 BAIMA, APRIL L COMMUNICATIONS ENGINEERING TECHNICIAN Ot 414.00 CORON ATHEROSCLER NOS TYPE VESSEL, NATIV 03/15/2016 BAIMA, APRIL L COMMUNICATIONS ENGINEERING TECHNICIAN Ot 272.4 HYPERLIPIDEMIA NEC/NOS 03/15/2016 BAIMA, APRIL L COMMUNICATIONS ENGINEERING TECHNICIAN Ot 414.00 CORON ATHEROSCLER NOS TYPE VESSEL, NATIV 03/15/2016 BAIMA, APRIL L COMMUNICATIONS ENGINEERING TECHNICIAN Ot 447.9 ARTERIAL DISEASE NOS 03/15/2016 LARRY KUO DO Ot 241.0 NONTOX UNINODULAR GOITER 03/15/2016 BAIMA, APRIL L COMMUNICATIONS ENGINEERING TECHNICIAN Ot 272.4 HYPERLIPIDEMIA NEC/NOS 03/15/2016 BAIMA, APRIL L COMMUNICATIONS ENGINEERING TECHNICIAN Ot 414.00 CORON ATHEROSCLER NOS TYPE VESSEL, NATIV 03/15/2016 BAIMA, APRIL L COMMUNICATIONS ENGINEERING TECHNICIAN Ot 272.4 HYPERLIPIDEMIA NEC/NOS 03/15/2016 LESLIE FERRARI, VENKAT Wiley Ot C61 MALIGNANT NEOPLASM OF PROSTATE 03/15/2016 BAIMA, APRIL L COMMUNICATIONS ENGINEERING TECHNICIAN Ot E78.5 HYPERLIPIDEMIA, UNSPECIFIED 03/15/2016 BAIMA, APRIL L COMMUNICATIONS ENGINEERING TECHNICIAN Ot I25.10 ATHSCL HEART DISEASE OF [place] CORONARY 03/15/2016 BAIMA, APRIL L COMMUNICATIONS ENGINEERING TECHNICIAN Ot I25.10 ATHSCL HEART DISEASE OF [place] CORONARY 03/19/2016 BAIMA, APRIL L COMMUNICATIONS ENGINEERING TECHNICIAN Ot E78.5 HYPERLIPIDEMIA, UNSPECIFIED 03/19/2016 BAIMA, APRIL L COMMUNICATIONS ENGINEERING TECHNICIAN Ot I25.10 ATHSCL HEART DISEASE OF [place] CORONARY 04/05/2016 BAIMA, APRIL L COMMUNICATIONS ENGINEERING TECHNICIAN Ot E78.5 HYPERLIPIDEMIA, UNSPECIFIED 04/05/2016 BAIMA, APRIL L COMMUNICATIONS ENGINEERING TECHNICIAN Ot I25.10 ATHSCL HEART DISEASE OF [place] CORONARY 05/07/2016 Ot 272.4 HYPERLIPIDEMIA NEC/NOS 05/07/2016 Ot 401.9 HYPERTENSION NOS 05/07/2016 Ot 414.01 CORONARY ATHEROSCLEROSIS OF [place] CORON 05/07/2016 Ot 415.19 OTH PULMON EMBOLISM/INFARCT [...] FACShekhar CCDS Ot 414.01 CORONARY ATHEROSCLEROSIS OF [place] CORON 05/07/2016 VICTOR M FERRARI FACC, ALI FACShekhar CCDS Ot V58.69 OTH MED,LT,CURRENT USE 05/07/2016 BAIMA, APRIL L COMMUNICATIONS ENGINEERING TECHNICIAN Ot 272.4 HYPERLIPIDEMIA NEC/NOS 05/07/2016 BAIMA, APRIL L COMMUNICATIONS ENGINEERING TECHNICIAN Ot 401.9 HYPERTENSION NOS 05/07/2016 BAIMA, APRIL L COMMUNICATIONS ENGINEERING TECHNICIAN Ot 414.01 CORONARY ATHEROSCLEROSIS OF [place] CORON 05/07/2016 BAIMA, APRIL L COMMUNICATIONS ENGINEERING TECHNICIAN Ot 272.4 HYPERLIPIDEMIA NEC/NOS 05/07/2016 BAIMA, APRIL L COMMUNICATIONS ENGINEERING TECHNICIAN Ot V58.69 OTH MED,LT,CURRENT USE 05/07/2016 BAIMA, APRIL L COMMUNICATIONS ENGINEERING TECHNICIAN Ot 272.4 HYPERLIPIDEMIA NEC/NOS 05/07/2016 BAIMA, APRIL L COMMUNICATIONS ENGINEERING TECHNICIAN Ot 414.00 CORON ATHEROSCLER NOS TYPE VESSEL, NATIV 05/07/2016 BAIMA, APRIL L COMMUNICATIONS ENGINEERING TECHNICIAN Ot 272.4 HYPERLIPIDEMIA NEC/NOS 05/07/2016 BAIAPRIL US L COMMUNICATIONS ENGINEERING TECHNICIAN Ot 414.00 CORON ATHEROSCLER NOS TYPE VESSEL, NATIV 05/07/2016 BAIMA APRIL L COMMUNICATIONS ENGINEERING TECHNICIAN Ot 447.9 ARTERIAL DISEASE NOS 05/07/2016 LARRY KUO DO Ot 241.0 NONTOX UNINODULAR GOITER 05/07/2016 BAIMAAPRIL L COMMUNICATIONS ENGINEERING TECHNICIAN Ot 272.4 HYPERLIPIDEMIA NEC/NOS 05/07/2016 BAIMAAPRIL L COMMUNICATIONS ENGINEERING TECHNICIAN Ot 414.00 CORON ATHEROSCLER NOS TYPE VESSEL, NATIV 05/07/2016 BAIMA, APRIL L COMMUNICATIONS ENGINEERING TECHNICIAN Ot 272.4 HYPERLIPIDEMIA NEC/NOS 05/07/2016 LESLIE FERRARI, VENKAT Wiley Ot C61 MALIGNANT NEOPLASM OF PROSTATE 05/07/2016 BAIMA, APRIL L COMMUNICATIONS ENGINEERING TECHNICIAN Ot E78.5 HYPERLIPIDEMIA, UNSPECIFIED 05/07/2016 BAIMA, APRIL L COMMUNICATIONS ENGINEERING TECHNICIAN Ot I25.10 ATHSCL HEART DISEASE OF [place] CORONARY 05/07/2016 KASANDRAAPRIL US L COMMUNICATIONS ENGINEERING TECHNICIAN Ot E78.5 HYPERLIPIDEMIA, UNSPECIFIED 05/07/2016 BAIMA, APRIL L COMMUNICATIONS ENGINEERING TECHNICIAN Ot I25.10 ATHSCL HEART DISEASE OF [place] CORONARY 05/28/2016 VICTOR M FERRARI FACC, ADONAY FACP CCDS Ot E78.4 OTHER HYPERLIPIDEMIA 05/28/2016 VICTOR M FERRARI FACC, ADONAY FACP CCDS Ot I10 ESSENTIAL (PRIMARY) HYPERTENSION 05/28/2016 VICTOR M FERRARI FACC, ALI FACP CCDS Ot I25.10 ATHSCL HEART DISEASE OF [place] CORONARY 05/28/2016 VICTOR M FERRARI FACC, ADONAY [...] CCDS Ot I25.10 ATHSCL HEART DISEASE OF [place] CORONARY 05/31/2016 VICTOR M FERRARI FACC, ADONAY [...] ANDRES CCDS Ot 414.01 CORONARY ATHEROSCLEROSIS OF [place] CORON 07/18/2016 VICTOR M FERRARI FACC, ADONAY ANDRES CCDS Ot V58.69 OTH MED,LT,CURRENT USE 07/18/2016 BAIMA, APRIL L COMMUNICATIONS ENGINEERING TECHNICIAN Ot 272.4 HYPERLIPIDEMIA NEC/NOS 07/18/2016 BAIMA, APRIL L COMMUNICATIONS ENGINEERING TECHNICIAN Ot 401.9 HYPERTENSION NOS 07/18/2016 BAIMA, APRIL L COMMUNICATIONS ENGINEERING TECHNICIAN Ot 414.01 CORONARY ATHEROSCLEROSIS OF [place] CORON 07/18/2016 BAIMA, APRIL L COMMUNICATIONS ENGINEERING TECHNICIAN Ot 272.4 HYPERLIPIDEMIA NEC/NOS 07/18/2016 BAIMA, APRIL L COMMUNICATIONS ENGINEERING TECHNICIAN Ot V58.69 OTH MED,LT,CURRENT USE 07/18/2016 BAIMA, APRIL L COMMUNICATIONS ENGINEERING TECHNICIAN Ot 272.4 HYPERLIPIDEMIA NEC/NOS 07/18/2016 BAIMA, APRIL L COMMUNICATIONS ENGINEERING TECHNICIAN Ot 414.00 CORON ATHEROSCLER NOS TYPE VESSEL, NATIV 07/18/2016 BAIMA, APRIL L COMMUNICATIONS ENGINEERING TECHNICIAN Ot 272.4 HYPERLIPIDEMIA NEC/NOS 07/18/2016 BAIMA, APIRL L COMMUNICATIONS ENGINEERING TECHNICIAN Ot 414.00 CORON ATHEROSCLER NOS TYPE VESSEL, NATIV 07/18/2016 BAIMA, APIRL L COMMUNICATIONS ENGINEERING TECHNICIAN Ot 447.9 ARTERIAL DISEASE NOS 07/18/2016 SHIELA DOLARRY A Ot 241.0 NONTOX UNINODULAR GOITER 07/18/2016 BAIMA, APRIL L COMMUNICATIONS ENGINEERING TECHNICIAN Ot 272.4 HYPERLIPIDEMIA NEC/NOS 07/18/2016 BAIMA, APRIL L COMMUNICATIONS ENGINEERING TECHNICIAN Ot 414.00 CORON ATHEROSCLER NOS TYPE VESSEL, NATIV 07/18/2016 BAIMA, APRIL L COMMUNICATIONS ENGINEERING TECHNICIAN Ot 272.4 HYPERLIPIDEMIA NEC/NOS 07/18/2016 VENKAT NELSON MD Ot C61 MALIGNANT NEOPLASM OF PROST[place] 07/18/2016 BAIMA, APRIL L COMMUNICATIONS ENGINEERING TECHNICIAN Ot E78.5 HYPERLIPIDEMIA, UNSPECIFIED 07/18/2016 BAIMA, APRIL L COMMUNICATIONS ENGINEERING TECHNICIAN Ot I25.10 ATHSCL HEART DISEASE OF [place] CORONARY 07/18/2016 BAIMA, APRIL L COMMUNICATIONS ENGINEERING TECHNICIAN Ot E78.5 HYPERLIPIDEMIA, UNSPECIFIED 07/18/2016 BAIMA, APRIL L COMMUNICATIONS ENGINEERING TECHNICIAN Ot I25.10 ATHSCL HEART DISEASE OF [place] CORONARY 07/18/2016 ADONAY DOW MD, FACC, FACP CCDS Ot E78.4 OTHER HYPERLIPIDEMIA 07/18/2016 [facility]10 ESSENTIAL (PRIMARY) HYPERTENSION 07/18/2016 VICTOR M FERRARI FACC, ADONAY [facility] CCDS Ot I25.10 ATHSCL HEART DISEASE OF [place] CORONARY 07/18/2016 VICTOR M FERRARI FACC, ADONAY [facility] CCDS Ot I65.23 OCCLUSION AND STENOSIS [...] MASS AND LUMP, NECK 08/06/2016 GELLENDER DO, LARYR Wiley Ot E04.1 NONTOXIC SINGLE THYROID NODULE [...] Love Ot I25.10 ATHSCL HEART DISEASE OF [place] CORONARY 08/21/2016 RICHELLE FERRARI, BEAN Love Ot [...] Love Ot I25.10 ATHSCL HEART DISEASE OF [place] CORONARY 08/22/2016 BEAN PEOPLES MD Ot R59.0 LOCALIZED ENLARGED LYMPH NODES 08/22/2016 BEAN PEOPLES MD Ot Z87.891 PERSONAL HISTORY OF NICOTINE DEPENDENCE 08/24/2016 OLGA LIDIA GARCIA APRN Ot E11.9 TYPE 2 DIABETES MELLITUS WITHOUT COMPLIC 08/24/2016 OLGA LIDIA GARCIA KITCHEN CLEANER Ot I10 ESSENTIAL (PRIMARY) HYPERTENSION 08/24/2016 OLGA LIDIA GARCIA APRN Ot R22.42 LOCALIZED SWELLING, MASS AND LUMP, LEFT 08/24/2016 OLGA LIDIA GARCIA APRN Ot R59.0 LOCALIZED ENLARGED LYMPH NODES 08/24/2016 OLGA LIDIA GACRIA APRN Ot Z79.02 RETIREMENT (CURRENT) USE OF ANTITHROMBOTI 08/24/2016 OLGA LIDIA GARCIA APRN Ot 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 08/24/2016 OLGA LIDIA GARCIA APRN Ot Z79.899 OTHER RETIREMENT (CURRENT) DRUG THERAPY 08/26/2016 OLGA LIDIA GARCIA APRN Ot E11.9 TYPE 2 DIABETES MELLITUS WITHOUT COMPLIC 08/26/2016 OLGA LIDIA GARCIA KITCHEN CLEANER Ot I10 ESSENTIAL (PRIMARY) HYPERTENSION 08/26/2016 OLGA LIDIA GARCIA KITCHEN CLEANER Ot R22.42 LOCALIZED SWELLING, MASS AND LUMP, LEFT 08/26/2016 OLGA LIDIA GARCIA KITCHEN CLEANER Ot R59.0 LOCALIZED ENLARGED LYMPH NODES 08/26/2016 OLGA LIDIA GARCIA KITCHEN CLEANER Ot Z79.02 RETIREMENT (CURRENT) USE OF ANTITHROMBOTI 08/26/2016 OLGA LIDIA GARCIA KITCHEN CLEANER Ot Z79.84 RETIREMENT (CURRENT) USE OF ORAL HYPOGLYC 08/26/2016 OLGA LIDIA GARCIA KITCHEN CLEANER Ot Z79.899 OTHER WELL SERVICE PUMP EQUIPMENT OPERATOR (CURRENT) DRUG THERAPY 09/05/2016 RICHELLE FERRARI, BEAN Love Ot E11.9 TYPE 2 DIABETES MELLITUS WITHOUT COMPLIC 09/05/2016 RICHELLE FERRARI, BEAN Love Ot E78.5 HYPERLIPIDEMIA, UNSPECIFIED 09/05/2016 RICHELLE FERRARI, BEAN Love Ot I10 ESSENTIAL (PRIMARY) HYPERTENSION 09/05/2016 RICHELLE FERRARI, BEAN Love Ot I25.10 ATHSCL HEART DISEASE OF [place] CORONARY 09/05/2016 RICHELLE FERRARI, BEAN Love Ot [...] ANGIOPLASTY 09/05/2016 VICTOR M [facility]ERR[facility]I [facility]ACC, [facility] 272.4 HYPERLIPIDEMIA NEC/NOS 09/05/2016 VICTOR M FERRARI FACC, ALI FACP CCDS Ot 414.01 CORONARY ATHEROSCLEROSIS OF [place] CORON 09/05/2016 VICTOR M FERRARI FACC, ALI [facility] CCDS Ot V58.69 OTH MED,LT,CURRENT USE 09/05/2016 BAIMA, APRIL L COMMUNICATIONS ENGINEERING TECHNICIAN Ot 272.4 HYPERLIPIDEMIA NEC/NOS 09/05/2016 BAIMA, APRIL L COMMUNICATIONS ENGINEERING TECHNICIAN Ot 401.9 HYPERTENSION NOS 09/05/2016 BAIMA, APRIL L COMMUNICATIONS ENGINEERING TECHNICIAN Ot 414.01 CORONARY ATHEROSCLEROSIS OF [place] CORON 09/05/2016 BAIMA, APRIL L COMMUNICATIONS ENGINEERING TECHNICIAN Ot 272.4 HYPERLIPIDEMIA NEC/NOS 09/05/2016 BAIMA, APRIL L COMMUNICATIONS ENGINEERING TECHNICIAN Ot V58.69 OTH MED,LT,CURRENT USE 09/05/2016 BAIMA, APRIL L COMMUNICATIONS ENGINEERING TECHNICIAN Ot 272.4 HYPERLIPIDEMIA NEC/NOS 09/05/2016 BAIMA, APRIL L COMMUNICATIONS ENGINEERING TECHNICIAN Ot 414.00 CORON ATHEROSCLER NOS TYPE VESSEL, NATIV 09/05/2016 BAIMA, APRIL L COMMUNICATIONS ENGINEERING TECHNICIAN Ot 272.4 HYPERLIPIDEMIA NEC/NOS 09/05/2016 BAIMA, APRIL L COMMUNICATIONS ENGINEERING TECHNICIAN Ot 414.00 CORON ATHEROSCLER NOS TYPE VESSEL, NATIV 09/05/2016 BAIMA, APRIL L COMMUNICATIONS ENGINEERING TECHNICIAN Ot 447.9 ARTERIAL DISEASE NOS 09/05/2016 LARRY KUO DO Ot 241.0 NONTOX UNINODULAR GOITER 09/05/2016 BAIMA, APRIL L COMMUNICATIONS ENGINEERING TECHNICIAN Ot 272.4 HYPERLIPIDEMIA NEC/NOS 09/05/2016 BAIMA, APRIL L COMMUNICATIONS ENGINEERING TECHNICIAN Ot 414.00 CORON ATHEROSCLER NOS TYPE VESSEL, NATIV 09/05/2016 BAIMA, APRIL L COMMUNICATIONS ENGINEERING TECHNICIAN Ot 272.4 HYPERLIPIDEMIA NEC/NOS 09/05/2016 VENKAT NELSON MD Ot C61 MALIGNANT NEOPLASM OF PROSTATE 09/05/2016 BAIMA, APRIL L COMMUNICATIONS ENGINEERING TECHNICIAN Ot E78.5 HYPERLIPIDEMIA, UNSPECIFIED 09/05/2016 APRIL BARRON COMMUNICATIONS ENGINEERING TECHNICIAN Ot I25.10 ATHSCL HEART DISEASE OF [place] CORONARY 09/05/2016 APRIL BARRON COMMUNICATIONS ENGINEERING TECHNICIAN Ot E78.5 HYPERLIPIDEMIA, UNSPECIFIED 09/05/2016 APRIL BARRON COMMUNICATIONS ENGINEERING TECHNICIAN Ot I25.10 ATHSCL HEART DISEASE OF [place] CORONARY 09/05/2016 VICTOR M FERRARI [facility], ALI FACP CCDS Ot E78.4 OTHER HYPERLIPIDEMIA 09/05/2016 VICTOR M FERRARI FAC, ALI FACP CCDS Ot I10 ESSENTIAL (PRIMARY) HYPERTENSION 09/05/2016 VICTOR M FERRARI FAC, ALI FACP CCDS Ot I25.10 ATHSCL HEART DISEASE OF [place] CORONARY 09/05/2016 VICTOR M FERRARI [facility], ALI FACP CCDS Ot I65.23 OCCLUSION AND STENOSIS OF [place]ILATERAL [place] 09/05/2016 VICTOR M FERRARI [facility], ALI FACP CCDS Ot Z72.0 TOBACCO [...] 09/05/2016 RICHELLE FERRARI, BEAN Love Ot Z79.84 RETIREMENT (CURRENT) USE OF ORAL HYPOGLYC 09/09/2016 ROXI [...] DUNLAP Ot I25.10 ATHSCL HEART DISEASE OF [place] CORONARY 09/11/2016 ROXI DUNLAP Ot Z79.84 RETIREMENT (CURRENT) USE OF ORAL HYPOGLYC 09/11/2016 ROXI DUNLAP Ot Z79.899 OTHER WELL SERVICE PUMP EQUIPMENT OPERATOR (CURRENT) DRUG THERAPY 09/11/2016 ROXI DUNLAP Ot Z87.891 PERSONAL HISTORY OF NICOTINE DEPENDENCE 09/11/2016 ROXI DUNLAP Ot Z95.5 PRESENCE OF CORONARY ANGIOPLASTY IMPLANT 09/17/2016 LARRY KUO DO Ot M89.9 DISORDER OF BONE, UNSPECIFIED 09/17/2016 LARRY KUO DO Ot R59.0 LOCALIZED ENLARGED LYMPH NODES 09/17/2016 LARRY KUO DO Ot R22.1 LOCALIZED SWELLING, MASS AND LUMP, NECK 09/17/2016 LARRY KUO DO Ot M89.9 DISORDER OF BONE, UNSPECIFIED 09/17/2016 LARRY KUO DO Ot R59.0 LOCALIZED ENLARGED LYMPH NODES 09/17/2016 LARRY KUO DO Ot R22.1 LOCALIZED SWELLING, MASS AND LUMP, NECK 09/19/2016 BAIMA, APRIL L COMMUNICATIONS ENGINEERING TECHNICIAN Ot E78.5 HYPERLIPIDEMIA, UNSPECIFIED 09/19/2016 BAIMA, APRIL L COMMUNICATIONS ENGINEERING TECHNICIAN Ot I10 ESSENTIAL (PRIMARY) HYPERTENSION 09/19/2016 BAIMA, APRIL L COMMUNICATIONS ENGINEERING TECHNICIAN Ot I25.10 ATHSCL HEART DISEASE OF [place] CORONARY 09/19/2016 BAIMA, APRIL L COMMUNICATIONS ENGINEERING TECHNICIAN Ot I77.9 DISORDER OF ARTERIES AND ARTERIOLES, UNS 09/19/2016 BAIMA, APRIL L COMMUNICATIONS ENGINEERING TECHNICIAN Ot E78.5 HYPERLIPIDEMIA, UNSPECIFIED 09/19/2016 BAIMA, APRIL L COMMUNICATIONS ENGINEERING TECHNICIAN Ot I10 ESSENTIAL (PRIMARY) HYPERTENSION 09/19/2016 BAIMA, APRIL L COMMUNICATIONS ENGINEERING TECHNICIAN Ot I25.10 ATHSCL HEART DISEASE OF [place] CORONARY 09/19/2016 BAIMA, APRIL L COMMUNICATIONS ENGINEERING TECHNICIAN Ot I77.9 DISORDER OF ARTERIES AND ARTERIOLES, UNS 09/19/2016 BAIMA, APRIL L COMMUNICATIONS ENGINEERING TECHNICIAN Ot E78.5 HYPERLIPIDEMIA, UNSPECIFIED 09/19/2016 BAIMA, APRIL L COMMUNICATIONS ENGINEERING TECHNICIAN Ot I10 ESSENTIAL (PRIMARY) HYPERTENSION 09/19/2016 BAIMA, APRIL L COMMUNICATIONS ENGINEERING TECHNICIAN Ot I25.10 ATHSCL HEART DISEASE OF [place] CORONARY 09/19/2016 BAIMA, APRIL L COMMUNICATIONS ENGINEERING TECHNICIAN Ot I77.9 DISORDER OF ARTERIES AND ARTERIOLES, UNS 09/19/2016 BAIMA, APRIL L COMMUNICATIONS ENGINEERING TECHNICIAN Ot E78.5 HYPERLIPIDEMIA, UNSPECIFIED 09/19/2016 BAIMA, APRIL L COMMUNICATIONS ENGINEERING TECHNICIAN Ot I10 ESSENTIAL (PRIMARY) HYPERTENSION 09/19/2016 BAIMA, APRIL L COMMUNICATIONS ENGINEERING TECHNICIAN Ot I25.10 ATHSCL HEART DISEASE OF [place] CORONARY 09/19/2016 BAIMA, APRIL L COMMUNICATIONS ENGINEERING TECHNICIAN Ot I77.9 DISORDER OF ARTERIES AND ARTERIOLES, UNS 09/19/2016 BAIMA, APRIL L COMMUNICATIONS ENGINEERING TECHNICIAN Ot E78.5 HYPERLIPIDEMIA, UNSPECIFIED 09/19/2016 BAIMA, APRLI L COMMUNICATIONS ENGINEERING TECHNICIAN Ot I10 ESSENTIAL (PRIMARY) HYPERTENSION 09/19/2016 APRIL BARRON COMMUNICATIONS ENGINEERING TECHNICIAN Ot I25.10 ATHSCL HEART DISEASE OF [place] CORONARY 09/19/2016 APRIL BARRON COMMUNICATIONS ENGINEERING TECHNICIAN Ot I77.9 DISORDER OF ARTERIES AND ARTERIOLES, UNS 09/24/2016 RICHELLE FERRARI, BEAN Love Ot E11.9 TYPE 2 DIABETES MELLITUS WITHOUT COMPLIC 09/24/2016 RICHELLE FERRARI, BEAN Love Ot E78.5 HYPERLIPIDEMIA, UNSPECIFIED 09/24/2016 RICHELLE FERRARI, BEAN Love Ot I10 ESSENTIAL (PRIMARY) HYPERTENSION 09/24/2016 RICHELLE FERRARI, BEAN Love Ot I25.10 ATHSCL HEART DISEASE OF [place] CORONARY 09/24/2016 RICHELLE FERRARI, BEAN Love Ot R59.0 LOCALIZED ENLARGED LYMPH NODES 09/24/2016 RICHELLE FERRARI, BEAN Love Ot Z87.891 PERSONAL HISTORY OF NICOTINE DEPENDENCE 09/30/2016 ROXI DUNLAP Ot C85.90 NON-[place] LYMPHOMA, UNSPECIFIED, UNSPE 09/30/2016 ROXI DUNLAP Ot Z01.810 ENCOUNTER FOR PREPROCEDURAL CARDIOVASCUL 10/02/2016 LARRY KUO DO Ot C83.30 DIFFUSE LARGE B-CELL LYMPHOMA, UNSPECIFI 10/02/2016 LARRY KUO DO Ot J35.9 CHRONIC DISEASE OF TONSILS AND ADENOIDS, 10/02/2016 LARRY KUO DO Ot R59.0 LOCALIZED ENLARGED LYMPH NODES 10/02/2016 ROXI DUNLAP Ot C85.90 NON-[place] LYMPHOMA, UNSPECIFIED, UNSPE 10/02/2016 ROXI DUNLAP Ot Z01.810 ENCOUNTER FOR PREPROCEDURAL CARDIOVASCUL 10/04/2016 LARRY KUO DO Ot C83.30 DIFFUSE LARGE B-CELL LYMPHOMA, UNSPECIFI 10/04/2016 LARRY KUO DO Ot J35.9 CHRONIC DISEASE OF TONSILS AND ADENOIDS, 10/04/2016 LARRY KUO DO Ot R59.0 LOCALIZED ENLARGED LYMPH NODES 10/09/2016 APRIL BARRON COMMUNICATIONS ENGINEERING TECHNICIAN Ot E78.5 HYPERLIPIDEMIA, UNSPECIFIED 10/09/2016 APRIL BARRON COMMUNICATIONS ENGINEERING TECHNICIAN Ot I10 ESSENTIAL (PRIMARY) HYPERTENSION 10/09/2016 BAIMA, APRIL L COMMUNICATIONS ENGINEERING TECHNICIAN Ot I25.10 ATHSCL HEART DISEASE OF [place] CORONARY 10/09/2016 APRIL BARRON COMMUNICATIONS ENGINEERING TECHNICIAN Ot I77.9 DISORDER OF ARTERIES AND ARTERIOLES, UNS 10/21/2016 GERMÁN ROXI Jay Ot C83.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, LYMPH NOD 10/21/2016 GERMÁN ROXI N Ot E11.9 TYPE 2 DIABETES MELLITUS WITHOUT COMPLIC 10/21/2016 GERMÁN ROXI Jay Ot E78.5 HYPERLIPIDEMIA, UNSPECIFIED 10/21/2016 GERMÁN ROXI N Ot I10 ESSENTIAL (PRIMARY) HYPERTENSION 10/21/2016 GERMÁN ROXI N Ot I25.10 ATHSCL HEART DISEASE OF [place] CORONARY 10/21/2016 GERMÁNROXI Ot 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 10/21/2016 GERMÁNROXI N Ot Z79.899 OTHER WELL SERVICE PUMP EQUIPMENT OPERATOR (CURRENT) DRUG THERAPY 10/21/2016 GERMÁNROXI Ot Z87.891 PERSONAL HISTORY OF NICOTINE DEPENDENCE 10/21/2016 ROXI DUNLAP Ot Z95.5 PRESENCE OF CORONARY ANGIOPLASTY IMPLANT 10/23/2016 GERMÁNROXI N Ot C83.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, LYMPH NOD 10/23/2016 GERMÁN ROXI N Ot E11.9 TYPE 2 DIABETES MELLITUS WITHOUT COMPLIC 10/23/2016 GERMÁNROXI N Ot E78.5 HYPERLIPIDEMIA, UNSPECIFIED 10/23/2016 GERMÁNROXI N Ot I10 ESSENTIAL (PRIMARY) HYPERTENSION 10/23/2016 GERMÁNROXI N Ot I25.10 ATHSCL HEART DISEASE OF [place] CORONARY 10/23/2016 GERMÁNROXI Ot 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 10/23/2016 GERMÁNROXI N Ot Z79.899 OTHER WELL SERVICE PUMP EQUIPMENT OPERATOR (CURRENT) DRUG THERAPY 10/23/2016 ROXI DUNLAP N Ot Z87.891 PERSONAL HISTORY OF NICOTINE DEPENDENCE 10/23/2016 ROXI DUNLAP N Ot Z95.5 PRESENCE OF CORONARY ANGIOPLASTY IMPLANT 10/24/2016 LARRY KUO DO Ot A41.9 SEPSIS, UNSPECIFIED ORGANISM 10/24/2016 GELLENLARRY HENDERSON DO Ot C85.90 NON-[place] LYMPHOMA, UNSPECIFIED, UNSPE 10/24/2016 LARRY KUO DO Ot 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 10/24/2016 [facility] Ot D70.9 NEUTROPENIA, UNSPECIFIED 10/24/2016 [facility] LARRY Wiley Ot E11.9 TYPE 2 DIABETES MELLITUS WITHOUT COMPLIC 10/24/2016 [facility] LARRY Wiley Ot E78.00 PURE HYPERCHOLESTEROLEMIA, UNSPECIFIED 10/24/2016 [facility] L[facility]Y Ot I10 ESSENTIAL (PRIMARY) HYPERTENSION 10/24/2016 [facility] I25.10 ATHSCL HEART DISEASE OF [place] CORONARY 10/24/2016 [facility] LARRY Wiley Ot K04.7 PERIAPICAL ABSCESS WITHOUT SINUS 10/24/2016 [facility] LARRY Wiley Ot M19.91 PRIMARY OSTEOARTHRITIS, UNSPECIFIED SITE 10/24/2016 [facility], LARRY Wiley Ot R50.81 FEVER PRESENTING WITH CONDITIONS CLASSIF 10/24/2016 [facility] LARRY Ot T45.1X5A ADVERSE EFFECT OF ANTINEOPLASTIC AND IMM 10/24/2016 [facility] FALLSLARRY Ot Z79.84 RETIREMENT (CURRENT) USE OF ORAL HYPOGLYC 10/24/2016 [facility] FALLSLARRY Ot Z85.46 PERSONAL HISTORY OF MALIGNANT NEOPLASM O 10/24/2016 [facility] FALLSLARRY Ot Z87.891 PERSONAL HISTORY OF NICOTINE DEPENDENCE 10/24/2016 [facility] FALLSLARR[place] Ot Z92.21 PERSONAL HISTORY OF ANTINEOPLASTIC CHEMO 10/24/2016 [facility] FALLSLARRY Ot Z95.5 PRESENCE OF CORONARY ANGIOPLASTY IMPLANT [...] measurement by glucometer (mass/volume) 109 mg/dL 70-110 Complete blood count (CBC) with automated white blood cell (WBC) differential - 10/22/16 17:05 Blood leukocytes automated count (number/volume) 1.7 10*3/ uL 4.3-11.0 Blood erythrocytes automated count (number/volume) 4.76 10*6 /uL 4.35-5.85 Venous blood hemoglobin measurement (mass/volume) 14.3 g/dL 13.3-17.7 Blood hematocrit (volume fraction) 42 % 40-54 Automated erythrocyte mean corpuscular volume 87 [foz_us] 80-99 Automated erythrocyte mean corpuscular hemoglobin (mass per erythrocyte) 30 pg 25-34 Automated erythrocyte mean corpuscular hemoglobin concentration measurement ( mass/volume) 35 g/dL 32-36 Automated erythrocyte distribution width ratio 13.5 % 10.0-14.5 Automated blood platelet count (count/volume) 162 10*3/uL 130-400 Automated blood platelet mean volume measurement 9.7 [foz_us ] 7.4-10.4 Automated blood neutrophils/100 leukocytes 58 % 42-75 Automated blood lymphocytes/100 leukocytes 23 % 12-44 Blood monocytes/100 leukocytes 14 % 0-12 Automated blood eosinophils/100 leukocytes 4 % 0-10 Automated blood basophils/100 leukocytes 1 % 0-10 Blood neutrophils automated count (number/volume) 1.0 10*3 1.8-7.8 Blood lymphocytes automated count (number/volume) 0.4 10*3 1.0-4.0 Blood monocytes automated count (number/volume) 0.2 10*3 0.0-1.0 Automated eosinophil count 0.1 10*3/uL 0.0-0.3 Automated blood basophil count (count/volume) 0.0 10*3/uL 0.0-0.1 PT panel in platelet poor plasma by coagulation assay - 10/22/16 17:05 Prothrombin time (PT) in platelet poor plasma by coagulation assay 15.3 s 12.2-14.7 INR in platelet poor plasma or blood by coagulation assay 1.2 0.8-1.4 Activated partial thromboplastin time (aPTT) in platelet poor plasma bycoagulation assay - 10/22/16 17:05 Activated partial thromboplastin time (aPTT) in platelet poor plasma bycoagulation assay 72 s 24-35 Blood lactic acid measurement (moles/volume) - 10/22/16 17:05 Blood lactic acid measurement (moles/volume) 0.79 mmol/L 0.50-2.00 Comprehensive metabolic panel - 10/22/16 17:05 Serum or plasma sodium measurement (moles/volume) 137 mmol/ L 135-145 Serum or plasma potassium measurement (moles/volume) 3.9 mmol/L 3.6-5.0 Serum or plasma chloride measurement (moles/volume) 106 mmol /L 98-107 Carbon dioxide 21 mmol/L 21-32 Serum or plasma anion gap determination (moles/volume) 10 mmol/L 5-14 Serum or plasma urea nitrogen measurement (mass/volume) 10 mg/dL 7-18 Serum or plasma creatinine measurement (mass/volume) 0.82 mg /dL 0.60-1.30 Serum or plasma urea nitrogen/creatinine mass ratio 12 NRG Serum or plasma creatinine measurement with calculation of estimated glomerular filtration rate > NRG Serum or plasma glucose measurement (mass/volume) 135 mg/dL 70-105 Serum or plasma calcium measurement (mass/volume) 8.7 mg/dL 8.5-10.1 Serum or plasma total bilirubin measurement (mass/volume) 0.5 mg/dL 0.1-1.0 Serum or plasma alkaline phosphatase measurement (enzymatic activity/volume) 40 U/L 40-136 Serum or plasma aspartate aminotransferase measurement (enzymatic activity/ volume) 13 U/L 5-34 Serum or plasma alanine aminotransferase measurement (enzymatic activity/volume ) 20 U/L 0-55 Serum or plasma protein measurement (mass/volume) 5.6 g/dL 6.4-8.2 Serum or plasma albumin measurement (mass/volume) 3.5 g/dL 3.2-4.5 Bacterial blood culture - 10/22/16 17:05 Bacterial blood culture NG NRG Bacterial blood culture - 10/22/16 17:53 Bacterial blood culture NG NR Complete urinalysis with reflex to culture - 10/22/16 22:06 Urine color determination REAL NRG Urine clarity determination VERY CLOUDY NRG Urine pH measurement by test strip 5 5- 9 Specific gravity of urine by test strip 1.030 1.016-1.022 Urine protein assay by test strip, semi-quantitative 2+ NEGATIVE Urine glucose detection by automated test strip NEGATIVE NEGATIVE Erythrocytes detection in urine sediment by light microscopy 1+ NEGATIVE Urine ketones detection by automated test strip 1+ NEGATIVE Urine nitrite detection by test strip NEGATIVE NEGATIVE Urine total bilirubin detection by test strip 1+ NEGATIVE Urine urobilinogen measurement by automated test strip (mass/volume) NORMAL NORMAL Urine leukocyte esterase detection by dipstick 1+ NEGATIVE Automated urine sediment erythrocyte count by microscopy (number/high power field) RARE NRG Automated urine sediment leukocyte count by microscopy (number/high power field ) [HPF] NRG Bacteria detection in urine sediment by light microscopy NEGATIVE NRG Crystals detection in urine sediment by light microscopy PRESENT NRG Casts detection in urine sediment by light microscopy NONE NRG Mucus detection in urine sediment by light microscopy LARGE NRG Complete urinalysis with reflex to culture NO NRG Calcium oxalate crystals detection in urine sediment by light microscopy LARGE NRG Complete blood count (CBC) with automated white blood cell (WBC) differential - 10/23/16 05:15 Blood leukocytes automated count (number/volume) 1.9 10*3/ uL 4.3-11.0 Blood erythrocytes automated count (number/volume) 4.21 10*6 /uL 4.35-5.85 Venous blood hemoglobin measurement (mass/volume) 12.9 g/dL 13.3-17.7 Blood hematocrit (volume fraction) 37 % 40-54 Automated erythrocyte mean corpuscular volume 88 [foz_us] 80-99 Automated erythrocyte mean corpuscular hemoglobin (mass per erythrocyte) 31 pg 25-34 Automated erythrocyte mean corpuscular hemoglobin concentration measurement ( mass/volume) 35 g/dL 32-36 Automated erythrocyte distribution width ratio 13.4 % 10.0-14.5 Automated blood platelet count (count/volume) 140 10*3/uL 130-400 Automated blood platelet mean volume measurement 9.7 [foz_us ] 7.4-10.4 Automated blood neutrophils/100 leukocytes 60 % 42-75 Automated blood lymphocytes/100 leukocytes 19 % 12-44 Blood monocytes/100 leukocytes 17 % 0-12 Automated blood eosinophils/100 leukocytes 3 % 0-10 Automated blood basophils/100 leukocytes 1 % 0-10 Blood neutrophils automated count (number/volume) 1.1 10*3 1.8-7.8 Blood lymphocytes automated count (number/volume) 0.4 10*3 1.0-4.0 Blood monocytes automated count (number/volume) 0.3 10*3 0.0-1.0 Automated eosinophil count 0.1 10*3/uL 0.0-0.3 Automated blood basophil count (count/volume) 0.0 10*3/uL 0.0-0.1 Comprehensive metabolic panel - 10/23/16 05:15 Serum or plasma sodium measurement (moles/volume) 139 mmol/ L 135-145 Serum or plasma potassium measurement (moles/volume) 3.8 mmol/L 3.6-5.0 Serum or plasma chloride measurement (moles/volume) 111 mmol /L 98-107 Carbon dioxide 21 mmol/L 21-32 Serum or plasma anion gap determination (moles/volume) 7 mmol/L 5-14 Serum or plasma urea nitrogen measurement (mass/volume) 9 mg /dL 7-18 Serum or plasma creatinine measurement (mass/volume) 0.70 mg /dL 0.60-1.30 Serum or plasma urea nitrogen/creatinine mass ratio 13 NRG Serum or plasma creatinine measurement with calculation of estimated glomerular filtration rate > NRG Serum or plasma glucose measurement (mass/volume) 124 mg/dL 70-105 Serum or plasma calcium measurement (mass/volume) 8.2 mg/dL 8.5-10.1 Serum or plasma total bilirubin measurement (mass/volume) 0.4 mg/dL 0.1-1.0 Serum or plasma alkaline phosphatase measurement (enzymatic activity/volume) 34 U/L 40-136 Serum or plasma aspartate aminotransferase measurement (enzymatic activity/ volume) 13 U/L 5-34 Serum or plasma alanine aminotransferase measurement (enzymatic activity/volume ) 15 U/L 0-55 Serum or plasma protein measurement (mass/volume) 4.9 g/dL 6.4-8.2 Serum or plasma albumin measurement (mass/volume) 3.0 g/dL 3.2-4.5 C DIFFICILE AG + TOXIN A/B. - 10/23/16 15:20 RESULTS NEGATIVE FOR ANTIGEN AND TOXIN A/B [facility] Complete blood count (CBC) with automated white blood cell (WBC) differential - 10/24/16 06:45 Blood leukocytes automated count (number/volume) 7.4 10*3/ uL 4.3-11.0 Blood erythrocytes automated count (number/volume) 4.37 10*6 /uL 4.35-5.85 Venous blood hemoglobin measurement (mass/volume) 13.2 g/dL 13.3-17.7 Blood hematocrit (volume fraction) 38 % 40-54 Automated erythrocyte mean corpuscular volume 87 [foz_us] 80-99 Automated erythrocyte mean corpuscular hemoglobin (mass per erythrocyte) 30 pg 25-34 Automated erythrocyte mean corpuscular hemoglobin concentration measurement ( mass/volume) 35 g/dL 32-36 Automated erythrocyte distribution width ratio 13.3 % 10.0-14.5 Automated blood platelet count (count/volume) 155 10*3/uL 130-400 Automated blood platelet mean volume measurement 9.9 [foz_us ] 7.4-10.4 Automated blood neutrophils/100 leukocytes 76 % 42-75 Automated blood lymphocytes/100 leukocytes 10 % 12-44 Blood monocytes/100 leukocytes 13 % 0-12 Automated blood eosinophils/100 leukocytes 1 % 0-10 Automated blood basophils/100 leukocytes 0 % 0-10 Blood neutrophils automated count (number/volume) 5.6 10*3 1.8-7.8 Blood lymphocytes automated count (number/volume) 0.8 10*3 1.0-4.0 Blood monocytes automated count (number/volume) 0.9 10*3 0.0-1.0 Automated eosinophil count 0.1 10*3/uL 0.0-0.3 Automated blood basophil count (count/volume) 0.0 10*3/uL 0.0-0.1 Whole blood basic metabolic panel - 10/24/16 06:45 Serum or plasma sodium measurement (moles/volume) 139 mmol/ L 135-145 Serum or plasma potassium measurement (moles/volume) 3.5 mmol/L 3.6-5.0 Serum or plasma chloride measurement (moles/volume) 110 mmol /L 98-107 Carbon dioxide 20 mmol/L 21-32 Serum or plasma anion gap determination (moles/volume) 9 mmol/L 5-14 Serum or plasma urea nitrogen measurement (mass/volume) 5 mg /dL 7-18 Serum or plasma creatinine measurement (mass/volume) 0.70 mg /dL 0.60-1.30 Serum or plasma urea nitrogen/creatinine mass ratio 7 NRG Serum or plasma creatinine measurement with calculation of estimated glomerular filtration rate > NRG Serum or plasma glucose measurement (mass/volume) 98 mg/dL 70-105 Serum or plasma calcium measurement (mass/volume) 8.7 mg/dL 8.5-10.1 Blood manual differential performed detection - 10/24/16 06:45 Blood monocytes/100 leukocytes 12 % NRG Manual blood segmented neutrophils/100 leukocytes 39 % NRG Blood band neutrophils/100 leukocytes 36 % NRG Manual blood lymphocytes/100 leukocytes 10 % NRG Manual eosinophils/100 leukocytes in nose 2 % NRG Manual blood basophils/100 leukocytes 1 % NRG Blood erythrocyte morphology finding identification NORMAL NRG Encounters ACCT No. Visit Date/Time Discharge Status Pt. Type Provider Facility Loc./Unit Complaint [id number] 10/22/2016 18:26:00 2016 14:32:00 DIS Inpatient LARRY KUO DO [facility] 4TH NEUTROPENIC FEVER,TOOTH ABSCESS,NON [place] LYMPH [id number] 09/05/2016 10:25:00 2016 15:30:00 DIS Outpatient BEAN PEOPLES MD [facility] LYMPHOMA [id number] 09/04/2016 05:51:00 2016 13:58:00 DIS Outpatient BEAN PEOPLES MD [facility] PREOP LYMPHOMA [id number] 08/24/2016 21:25:00 2016 22:58:00 DIS Emergency OLGA LIDIA GARCIA APRN [facility] ER L LEG SWELLING [id number] 08/21/2016 11:22:00 2016 16:03:00 DIS Outpatient BEAN PEOPLES MD [facility] SDC LYMPHADENOTATHY [id number] 08/15/2016 11:29:00 2016 11:52:00 DIS Outpatient BEAN PEOPLES MD [facility] PREOP LYMPHADENOTATHY [id number] 06/15/2015 11:36:00 2014 23:59:59 CLS Outpatient VENKAT NELSON MD [facility] CARD PROSTATE CA [id number] 03/17/2015 07:07:00 2014 23:59:59 CLS Outpatient BAIMA, APRIL L COMMUNICATIONS ENGINEERING TECHNICIAN [facility] LAB HYPERLIPIDEMIA [id number] 09/01/2014 07:04:00 2014 23:59:59 CLS Outpatient BAIMA, APRIL L COMMUNICATIONS ENGINEERING TECHNICIAN [facility] LAB CAD,HLP [id number] 05/17/2014 09:12:00 2013 23:59:59 CLS Outpatient LARRY KUO DO [facility] RAD THYROID NODULE RT SIDE [id number] 03/11/2014 07:01:00 2013 23:59:59 CLS Outpatient BAIMA, APRIL L COMMUNICATIONS ENGINEERING TECHNICIAN [facility] LAB CAD,CAROTID ARTERIAL DISEASE ,HYPERLIPIDEMIA [id number] 08/02/2013 07:11:00 2013 23:59:59 CLS Outpatient BAIMA, APRIL L COMMUNICATIONS ENGINEERING TECHNICIAN [facility] LAB CAD,HYPERLIPIDEMIA [id number] 04/13/2013 07:43:00 2012 23:59:59 CLS Outpatient BAIMA, APRIL L COMMUNICATIONS ENGINEERING TECHNICIAN [facility] LAB HYPERLIPIDEMIA,STATIN TRX [id number] 03/05/2013 07:09:00 2012 23:59:59 CLS Outpatient BAIMA, APRIL L COMMUNICATIONS ENGINEERING TECHNICIAN [facility] LAB CAD,HYPERTENSION, HYPERLIPIDEMIA,STATIN [place] [id number] 12/31/2012 07:12:00 2012 23:59:59 CLS Outpatient VICTOR M FERRARI FACC, ADONAY ANDRES CCDS [facility] LAB CAD,STATIN TX, HYPERLIPIDEMIA [id number] 10/30/2016 08:49:00 ACT Outpatient ROXI DUNLAP [facility] ONC [id number] 09/18/2016 08:59:00 ACT Outpatient BAIMA, APRIL L COMMUNICATIONS ENGINEERING TECHNICIAN [facility] LAB [id number] 09/06/2016 07:41:00 ACT Outpatient ROXI DUNLAP [facility] CARD Z01.810 [id number] 09/03/2016 08:52:00 ACT Outpatient LARRY KUO DO [facility] RAD LYMPHOMA [id number] 08/13/2016 07:05:00 ACT Outpatient SHIELA LARRY CARTER [facility] CARD SCLEROTIC,LESION ON T4 AND T2 [id number] 08/12/2016 13:08:00 ACT Outpatient SHIELA LARRY CARTER [facility] RAD RIGHT SIDE OF NECK SWOLLEN [id number] 07/18/2016 08:14:00 ACT Outpatient SHIELA CARTER LARRY [facility] RAD COMPLICATED CYSTIC BESIUM [id number] 07/11/2016 10:39:00 ACT Outpatient SHIELA CARTER LARRY [facility] RAD CYST IN NECK [id number] 07/01/2016 11:52:00 ACT Outpatient SHIELA CARTER LARRY [facility] RAD PAIN IN RIGHT WRIST [id number] 05/07/2016 06:59:00 ACT Outpatient VICTOR M FERRARI FACC, ADONAY ANDRES CCDS [facility] CARD CAD,HLP,HTN,CAROTID ARTERIAL DISEASE [id number] 03/15/2016 07:14:00 ACT Outpatient APRIL BARRONP [facility] LAB CAD,HYPERLIPIDEMIA [id number] 09/15/2015 07:14:00 ACT Outpatient APRIL BARRON [facility] LAB CAD,HLP [id number] 03/17/2015 07:07:00 Document Registration [id number] 03/17/2015 07:07:00 Document Registration [id number] 03/17/2015 07:07:00 Document Registration [id number] 03/17/2015 07:07:00 Document Registration [id number] 03/17/2015 07:07:00 Document Registration [id number] 03/17/2015 07:07:00 Document Registration [id number] 03/17/2015 07:07:00 Document Registration [id number] 03/17/2015 07:07:00 Document Registration [id number] 10/26/2012 07:43:00 Document Registration [id number] 10/05/2012 10:15:00 Document Registration [id number] 06/23/2012 11:38:00 Document Registration [id number] 06/04/2012 13:53:00 Document Registration [id number] 05/28/2012 10:32:00 Document Registration [id number] 05/25/2012 06:56:00 Document Registration [id number] 05/22/2012 08:15:00 Document Registration [id number] 04/16/2012 07:26:00 Document Registration [id number] 01/07/2011 07:33:00 Document Registration [id number] 12/06/2010 07:35:00 Document Registration [id number] 10/08/2010 07:50:00 Document Registration [id number] 10/08/2010 07:49:00 Document Registration [id number] 08/30/2010 07:43:00 Document Registration [id number] 08/02/2010 08:11:00 Document Registration [id number] 07/06/2010 12:09:00 Document Registration [id number] 04/12/2010 08:08:00 Document Registration [id number] 04/04/2010 16:27:00 Document Registration [id number] 03/26/2010 09:52:00 Document Registration [id number] 03/21/2010 15:49:00 Document Registration [id number] 12/12/2009 13:34:00 Document Registration
--- OUTSIDE RECORDS SUMMARY | 2016-11-10 05:05 | XMS REPORT | Continuity of Care Document ---
Author Author [facility] Organization [facility] Address Unknown Phone Unavailable Allergies Active Description Code Type Severity Reaction Onset Reported/Identified Relationship to Patient Clinical Status Yes sulfamethoxazole [id number] Drug Allergy Unknown N/A 10/07/2008 Yes trimethoprim [id number] Drug Allergy Unknown N/A 10/07/2008 Medications Problems [...] NOS 11/28/2010 Ot 414.01 CORONARY 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 11/28/2010 Ot 415.19 OTH PULMON EMBOLISM/INFARCT 05/25/2012 Ot 211.4 BENIGN NEOPL RECTUM/ANUS 05/25/2012 Ot 250.00 DIAB DRISS WO COMPL, TYPE II OR UNSPEC TY 05/25/2012 Ot 272.0 PURE HYPERCHOLESTEROLEM 05/25/2012 Ot 401.9 HYPERTENSION NOS 05/25/2012 Ot 414.01 CORONARY 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 05/25/2012 Ot 562.10 DIVERTICULOSIS COLON (W/O MENT OF HEMORR 05/25/2012 Ot V45.82 PERCUTANEOUS TRANSLUM CORON ANGIOPLASTY 05/25/2012 Ot V58.63 LONG-TERM(CURRENT)USE OF ANTIPLATELET/AN 05/25/2012 Ot V58.69 OTH MED,LT,CURRENT USE 05/25/2012 Ot V76.51 SCREEN MAL NEOP-COLON 06/05/2012 Ot 250.00 DIAB DRISS WO COMPL, TYPE II OR UNSPEC TY 06/05/2012 Ot 272.4 HYPERLIPIDEMIA NEC/NOS 06/05/2012 Ot 401.9 HYPERTENSION NOS 06/05/2012 Ot 414.01 CORONARY 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 06/05/2012 Ot 562.10 DIVERTICULOSIS COLON (W/O [...] CCDS Ot 414.01 03/17/2015 VICTOR M FERRARI [facility], ALI FACP CCDS Ot V58.69 03/17/2015 BAIMA, APRIL L MANAGER BUSINESS OPERATIONS Ot 272.4 03/17/2015 BAIMA, APRIL L MANAGER BUSINESS OPERATIONS Ot 401.9 03/17/2015 BAIMA, APRIL L MANAGER BUSINESS OPERATIONS Ot 414.01 03/17/2015 BAIMA, APRIL L MANAGER BUSINESS OPERATIONS Ot 272.4 03/17/2015 BAIMA, APRIL L MANAGER BUSINESS OPERATIONS Ot V58.69 03/17/2015 BAIMA, APRIL L MANAGER BUSINESS OPERATIONS Ot 272.4 03/17/2015 BAIMA, APRIL L MANAGER BUSINESS OPERATIONS Ot 414.00 03/17/2015 BAIMA, APRIL L MANAGER BUSINESS OPERATIONS Ot 272.4 03/17/2015 BAIMA, APRIL L MANAGER BUSINESS OPERATIONS Ot 414.00 03/17/2015 BAIMA, APRIL L MANAGER BUSINESS OPERATIONS Ot 447.9 03/17/2015 LARRY KUO DO Ot 241.0 03/17/2015 BAIMA, APRIL L MANAGER BUSINESS OPERATIONS Ot 272.4 03/17/2015 BAIMA, APRIL L MANAGER BUSINESS OPERATIONS Ot 414.00 03/21/2015 BAIMA, APRIL L MANAGER BUSINESS OPERATIONS Ot 272.4 03/24/2015 BAIMA, APRIL L MANAGER BUSINESS OPERATIONS Ot 272.4 04/06/2015 BAIMA, APRIL L MANAGER BUSINESS OPERATIONS Ot 272.4 07/05/2015 VENKAT NELSON MD Ot [...] FACP CCDS Ot V58.69 09/15/2015 APRIL BARRON MANAGER BUSINESS OPERATIONS Ot 272.4 09/15/2015 APRIL BARRON MANAGER BUSINESS OPERATIONS Ot 401.9 09/15/2015 BAIMA, APRIL L MANAGER BUSINESS OPERATIONS Ot 414.01 09/15/2015 BAIMA, APRIL L MANAGER BUSINESS OPERATIONS Ot 272.4 09/15/2015 BAIMA, APRIL L MANAGER BUSINESS OPERATIONS Ot V58.69 09/15/2015 BAIMA, APRIL L MANAGER BUSINESS OPERATIONS Ot 272.4 09/15/2015 BAIMA, APRIL L MANAGER BUSINESS OPERATIONS Ot 414.00 09/15/2015 BAIMA, APRIL L MANAGER BUSINESS OPERATIONS Ot 272.4 09/15/2015 BAIMA, APRIL L MANAGER BUSINESS OPERATIONS Ot 414.00 09/15/2015 BAIMA, APRIL L MANAGER BUSINESS OPERATIONS Ot 447.9 09/15/2015 LARRY KUO DO A Ot 241.0 09/15/2015 BAIMA, APRIL L MANAGER BUSINESS OPERATIONS Ot 272.4 09/15/2015 BAIMA, APRIL L MANAGER BUSINESS OPERATIONS Ot 414.00 09/15/2015 BAIMA, APRIL L MANAGER BUSINESS OPERATIONS Ot 272.4 09/15/2015 VENKAT NELSON MD Ot C61 10/09/2015 BAIMA, APRIL L MANAGER BUSINESS OPERATIONS Ot E78.5 10/09/2015 BAIMA, APRIL L MANAGER BUSINESS OPERATIONS Ot I25.10 03/15/2016 Ot 272.4 HYPERLIPIDEMIA NEC/NOS 03/15/2016 Ot 401.9 HYPERTENSION NOS 03/15/2016 Ot 414.01 CORONARY 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 03/15/2016 Ot V58.69 OTH MED,LT,CURRENT USE 03/15/2016 Ot 272.4 HYPERLIPIDEMIA NEC/NOS 03/15/2016 Ot 401.9 HYPERTENSION NOS 03/15/2016 Ot 414.01 CORONARY 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 03/15/2016 Ot 415.19 OTH PULMON EMBOLISM/INFARCT [...] FACP CCDS Ot 414.01 CORONARY 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 03/15/2016 VICTOR M FERRARI FACC, ALI FACP CCDS Ot V58.69 OTH MED,LT,CURRENT USE 03/15/2016 BAIMA, APRIL L MANAGER BUSINESS OPERATIONS Ot 272.4 HYPERLIPIDEMIA NEC/NOS 03/15/2016 BAIMA, APRIL L MANAGER BUSINESS OPERATIONS Ot 401.9 HYPERTENSION NOS 03/15/2016 BAIMA, APRIL L MANAGER BUSINESS OPERATIONS Ot 414.01 CORONARY 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 03/15/2016 BAIMA, APRIL L MANAGER BUSINESS OPERATIONS Ot 272.4 HYPERLIPIDEMIA NEC/NOS 03/15/2016 BAIMA, APRIL L MANAGER BUSINESS OPERATIONS Ot V58.69 OTH MED,LT,CURRENT USE 03/15/2016 BAIMA, APRIL L MANAGER BUSINESS OPERATIONS Ot 272.4 HYPERLIPIDEMIA NEC/NOS 03/15/2016 BAIMA, APRIL L MANAGER BUSINESS OPERATIONS Ot 414.00 CORON ATHEROSCLER NOS TYPE VESSEL, NATIV 03/15/2016 BAIMA, APRIL L MANAGER BUSINESS OPERATIONS Ot 272.4 HYPERLIPIDEMIA NEC/NOS 03/15/2016 BAIMA, APRIL L MANAGER BUSINESS OPERATIONS Ot 414.00 CORON ATHEROSCLER NOS TYPE VESSEL, NATIV 03/15/2016 BAIMA, APRIL L MANAGER BUSINESS OPERATIONS Ot 447.9 ARTERIAL DISEASE NOS 03/15/2016 LARRY KUO DO Ot 241.0 NONTOX UNINODULAR GOITER 03/15/2016 BAIMA, APRIL L MANAGER BUSINESS OPERATIONS Ot 272.4 HYPERLIPIDEMIA NEC/NOS 03/15/2016 BAIMA, APRIL L MANAGER BUSINESS OPERATIONS Ot 414.00 CORON ATHEROSCLER NOS TYPE VESSEL, NATIV 03/15/2016 BAIMA, APRIL L MANAGER BUSINESS OPERATIONS Ot 272.4 HYPERLIPIDEMIA NEC/NOS 03/15/2016 LESLIE FERRARI, VENKAT Wiley Ot C61 MALIGNANT NEOPLASM OF PROSTATE 03/15/2016 BAIMA, APRIL L MANAGER BUSINESS OPERATIONS Ot E78.5 HYPERLIPIDEMIA, UNSPECIFIED 03/15/2016 BAIMA, APRIL L MANAGER BUSINESS OPERATIONS Ot I25.10 ATHSCL HEART DISEASE OF [place] CORONARY 03/15/2016 BAIMA, APRIL L MANAGER BUSINESS OPERATIONS Ot I25.10 ATHSCL HEART DISEASE OF [place] CORONARY 03/19/2016 BAIMA, APRIL L MANAGER BUSINESS OPERATIONS Ot E78.5 HYPERLIPIDEMIA, UNSPECIFIED 03/19/2016 BAIMA, APRIL L MANAGER BUSINESS OPERATIONS Ot I25.10 ATHSCL HEART DISEASE OF [place] CORONARY 04/05/2016 BAIMA, APRIL L MANAGER BUSINESS OPERATIONS Ot E78.5 HYPERLIPIDEMIA, UNSPECIFIED 04/05/2016 BAIMA, APRIL L MANAGER BUSINESS OPERATIONS Ot I25.10 ATHSCL HEART DISEASE OF [place] CORONARY 05/07/2016 Ot 272.4 HYPERLIPIDEMIA NEC/NOS 05/07/2016 Ot 401.9 HYPERTENSION NOS 05/07/2016 Ot 414.01 CORONARY 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 05/07/2016 Ot 415.19 OTH PULMON EMBOLISM/INFARCT [...] FACShekhar CCDS Ot 414.01 CORONARY 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 05/07/2016 VICTOR M FERRARI FACC, ALI FACShekhar CCDS Ot V58.69 OTH MED,LT,CURRENT USE 05/07/2016 BAIMA, APRIL L MANAGER BUSINESS OPERATIONS Ot 272.4 HYPERLIPIDEMIA NEC/NOS 05/07/2016 BAIMA, APRIL L MANAGER BUSINESS OPERATIONS Ot 401.9 HYPERTENSION NOS 05/07/2016 BAIMA, APRIL L MANAGER BUSINESS OPERATIONS Ot 414.01 CORONARY 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 05/07/2016 BAIMA, APRIL L MANAGER BUSINESS OPERATIONS Ot 272.4 HYPERLIPIDEMIA NEC/NOS 05/07/2016 BAIMA, APRIL L MANAGER BUSINESS OPERATIONS Ot V58.69 OTH MED,LT,CURRENT USE 05/07/2016 BAIMA, APRIL L MANAGER BUSINESS OPERATIONS Ot 272.4 HYPERLIPIDEMIA NEC/NOS 05/07/2016 BAIMA, APRIL L MANAGER BUSINESS OPERATIONS Ot 414.00 CORON ATHEROSCLER NOS TYPE VESSEL, NATIV 05/07/2016 BAIMA, APRIL L MANAGER BUSINESS OPERATIONS Ot 272.4 HYPERLIPIDEMIA NEC/NOS 05/07/2016 BAIAPRIL US L MANAGER BUSINESS OPERATIONS Ot 414.00 CORON ATHEROSCLER NOS TYPE VESSEL, NATIV 05/07/2016 BAIMA APRIL L MANAGER BUSINESS OPERATIONS Ot 447.9 ARTERIAL DISEASE NOS 05/07/2016 LARRY KUO DO Ot 241.0 NONTOX UNINODULAR GOITER 05/07/2016 BAIMAAPRIL L MANAGER BUSINESS OPERATIONS Ot 272.4 HYPERLIPIDEMIA NEC/NOS 05/07/2016 BAIMAAPRIL L MANAGER BUSINESS OPERATIONS Ot 414.00 CORON ATHEROSCLER NOS TYPE VESSEL, NATIV 05/07/2016 BAIMA, APRIL L MANAGER BUSINESS OPERATIONS Ot 272.4 HYPERLIPIDEMIA NEC/NOS 05/07/2016 LESLIE FERRARI, VENKAT Wiley Ot C61 MALIGNANT NEOPLASM OF PROSTATE 05/07/2016 BAIMA, APRIL L MANAGER BUSINESS OPERATIONS Ot E78.5 HYPERLIPIDEMIA, UNSPECIFIED 05/07/2016 BAIMA, APRIL L MANAGER BUSINESS OPERATIONS Ot I25.10 ATHSCL HEART DISEASE OF [place] CORONARY 05/07/2016 KASANDRAAPRIL US L MANAGER BUSINESS OPERATIONS Ot E78.5 HYPERLIPIDEMIA, UNSPECIFIED 05/07/2016 BAIMA, APRIL L MANAGER BUSINESS OPERATIONS Ot I25.10 ATHSCL HEART DISEASE OF [place] CORONARY 05/28/2016 VICTOR M FERRAIR FACC, ADONAY FACP CCDS Ot E78.4 OTHER HYPERLIPIDEMIA 05/28/2016 VICTOR M FERRARI FACC, ADONAY FACP CCDS Ot I10 ESSENTIAL (PRIMARY) HYPERTENSION 05/28/2016 VICTOR M FERRARI FACC, ALI FACP CCDS Ot I25.10 ATHSCL HEART DISEASE OF [place] CORONARY 05/28/2016 VICTOR M FERRARI FACC, ADONAY [...] CCDS Ot I25.10 ATHSCL HEART DISEASE OF [place] CORONARY 05/31/2016 VICTOR M FERRARI FACC, ADONAY [...] ANDRES CCDS Ot 414.01 CORONARY 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 07/18/2016 VICTOR M FERRARI FACC, ADNOAY ANDRES CCDS Ot V58.69 OTH MED,LT,CURRENT USE 07/18/2016 BAIMA, APRIL L MANAGER BUSINESS OPERATIONS Ot 272.4 HYPERLIPIDEMIA NEC/NOS 07/18/2016 BAIMA, APRIL L MANAGER BUSINESS OPERATIONS Ot 401.9 HYPERTENSION NOS 07/18/2016 BAIMA, APRIL L MANAGER BUSINESS OPERATIONS Ot 414.01 CORONARY 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 07/18/2016 BAIMA, APRIL L MANAGER BUSINESS OPERATIONS Ot 272.4 HYPERLIPIDEMIA NEC/NOS 07/18/2016 BAIMA, APRIL L MANAGER BUSINESS OPERATIONS Ot V58.69 OTH MED,LT,CURRENT USE 07/18/2016 BAIMA, APRIL L MANAGER BUSINESS OPERATIONS Ot 272.4 HYPERLIPIDEMIA NEC/NOS 07/18/2016 BAIMA, APRIL L MANAGER BUSINESS OPERATIONS Ot 414.00 CORON ATHEROSCLER NOS TYPE VESSEL, NATIV 07/18/2016 BAIMA, APRIL L MANAGER BUSINESS OPERATIONS Ot 272.4 HYPERLIPIDEMIA NEC/NOS 07/18/2016 BAIMA, APRIL L MANAGER BUSINESS OPERATIONS Ot 414.00 CORON ATHEROSCLER NOS TYPE VESSEL, NATIV 07/18/2016 BAIMA, APRIL L MANAGER BUSINESS OPERATIONS Ot 447.9 ARTERIAL DISEASE NOS 07/18/2016 SHIELA DOLARRY A Ot 241.0 NONTOX UNINODULAR GOITER 07/18/2016 BAIMA, APRIL L MANAGER BUSINESS OPERATIONS Ot 272.4 HYPERLIPIDEMIA NEC/NOS 07/18/2016 BAIMA, APRIL L MANAGER BUSINESS OPERATIONS Ot 414.00 CORON ATHEROSCLER NOS TYPE VESSEL, NATIV 07/18/2016 BAIMA, APRIL L MANAGER BUSINESS OPERATIONS Ot 272.4 HYPERLIPIDEMIA NEC/NOS 07/18/2016 VENKAT NELSON MD Ot C61 MALIGNANT NEOPLASM OF PROSTATE 07/18/2016 BAIMA, APRIL L MANAGER BUSINESS OPERATIONS Ot E78.5 HYPERLIPIDEMIA, UNSPECIFIED 07/18/2016 BAIMA, APRIL L MANAGER BUSINESS OPERATIONS Ot I25.10 ATHSCL HEART DISEASE OF [place] CORONARY 07/18/2016 BAIMA, APRIL L MANAGER BUSINESS OPERATIONS Ot E78.5 HYPERLIPIDEMIA, UNSPECIFIED 07/18/2016 BAIMA, APRIL L MANAGER BUSINESS OPERATIONS Ot I25.10 ATHSCL HEART DISEASE OF [place] CORONARY 07/18/2016 ADONAY DOW MD, FACC, FACP CCDS Ot E78.4 OTHER HYPERLIPIDEMIA 07/18/2016 VICTOR M FERRARI [facility]ACC, [facility]AY [facility] Ot I10 ESSENTIAL (PRIMARY) HYPERTENSION 07/18/2016 VICTOR M FERRARI FACC, ADONAY [facility] CCDS Ot I25.10 ATHSCL HEART DISEASE OF [place] CORONARY 07/18/2016 VICTOR M FERRARI FACC, ADONAY [facility] CCDS Ot I65.23 OCCLUSION AND STENOSIS OF [...] SCREENING FOR OTHER BACTER 08/15/2016 ARLENLENDER DO, LRARY A Ot M89.9 DISORDER OF BONE, UNSPECIFIED [...] Love Ot I25.10 ATHSCL HEART DISEASE OF [place] CORONARY 08/21/2016 RICHELLE FERRARI, BEAN Love Ot [...] Love Ot I25.10 ATHSCL HEART DISEASE OF [place] CORONARY 08/22/2016 BEAN PEOPLES MD Ot R59.0 LOCALIZED ENLARGED LYMPH NODES 08/22/2016 BEAN PEOPLES MD Ot Z87.891 PERSONAL HISTORY OF NICOTINE DEPENDENCE 08/24/2016 OLGA LIDIA GARCIA APRN Ot E11.9 TYPE 2 DIABETES MELLITUS WITHOUT COMPLIC 08/24/2016 OLGA LIDIA GARCIA PROC TECH Ot I10 ESSENTIAL (PRIMARY) HYPERTENSION 08/24/2016 OLGA LIDIA GARCIA APRN Ot R22.42 LOCALIZED SWELLING, MASS AND LUMP, LEFT 08/24/2016 OLGA LIDIA GARCIA APRN Ot R59.0 LOCALIZED ENLARGED LYMPH NODES 08/24/2016 OLGA LIDIA GARCIA APRN Ot Z79.02 ALF (CURRENT) USE OF ANTITHROMBOTI 08/24/2016 OLGA LIDIA GARCIA APRN Ot Z79.84 CLOTHER IN (CURRENT) USE OF ORAL HYPOGLYC 08/24/2016 OLGA LIDIA GARCIA APRN Ot Z79.899 OTHER ALF (CURRENT) DRUG THERAPY 08/26/2016 OLGA LIDIA GARCIA APRN Ot E11.9 TYPE 2 DIABETES MELLITUS WITHOUT COMPLIC 08/26/2016 OLGA LIDIA GARCIA PROC TECH Ot I10 ESSENTIAL (PRIMARY) HYPERTENSION 08/26/2016 OLGA LIDIA GARCIA PROC TECH Ot R22.42 LOCALIZED SWELLING, MASS AND LUMP, LEFT 08/26/2016 OLGA LIDIA GARCIA PROC TECH Ot R59.0 LOCALIZED ENLARGED LYMPH NODES 08/26/2016 OLGA LIDIA GARCIA PROC TECH Ot Z79.02 ALF (CURRENT) USE OF ANTITHROMBOTI 08/26/2016 OLGA LIDIA GARCIA PROC TECH Ot Z79.84 ALF (CURRENT) USE OF ORAL HYPOGLYC 08/26/2016 OLGA LIDIA GARCIA PROC TECH Ot Z79.899 OTHER CLOTHER IN (CURRENT) DRUG THERAPY 09/05/2016 RICHELLE FERRARI, BEAN Love Ot E11.9 TYPE 2 DIABETES MELLITUS WITHOUT COMPLIC 09/05/2016 RICHELLE FERRARI, BEAN Love Ot E78.5 HYPERLIPIDEMIA, UNSPECIFIED 09/05/2016 RICHELLE FERRARI, BEAN Love Ot I10 ESSENTIAL (PRIMARY) HYPERTENSION 09/05/2016 RICHELLE FERRARI, BEAN Love Ot I25.10 ATHSCL HEART DISEASE OF [place] CORONARY 09/05/2016 RICHELLE FERRARI, BEAN Love Ot [...] ANGIOPLASTY 09/05/2016 VICTOR M FERRARI FACC, ADONAY [facility]S Ot 272.4 HYPERLIPIDEMIA NEC/NOS 09/05/2016 VICTOR M FERRARI FACC, ALI FACP CCDS Ot 414.01 CORONARY 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 09/05/2016 VICTOR M FERRARI FACC, ALI [facility] CCDS Ot V58.69 OTH MED,LT,CURRENT USE 09/05/2016 BAIMA, APRIL L MANAGER BUSINESS OPERATIONS Ot 272.4 HYPERLIPIDEMIA NEC/NOS 09/05/2016 BAIMA, APRIL L MANAGER BUSINESS OPERATIONS Ot 401.9 HYPERTENSION NOS 09/05/2016 BAIMA, APRIL L MANAGER BUSINESS OPERATIONS Ot 414.01 CORONARY 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 09/05/2016 BAIMA, APRIL L MANAGER BUSINESS OPERATIONS Ot 272.4 HYPERLIPIDEMIA NEC/NOS 09/05/2016 BAIMA, APRIL L MANAGER BUSINESS OPERATIONS Ot V58.69 OTH MED,LT,CURRENT USE 09/05/2016 BAIMA, APRIL L MANAGER BUSINESS OPERATIONS Ot 272.4 HYPERLIPIDEMIA NEC/NOS 09/05/2016 BAIMA, APRIL L MANAGER BUSINESS OPERATIONS Ot 414.00 CORON ATHEROSCLER NOS TYPE VESSEL, NATIV 09/05/2016 BAIMA, APRIL L MANAGER BUSINESS OPERATIONS Ot 272.4 HYPERLIPIDEMIA NEC/NOS 09/05/2016 BAIMA, APRIL L MANAGER BUSINESS OPERATIONS Ot 414.00 CORON ATHEROSCLER NOS TYPE VESSEL, NATIV 09/05/2016 BAIMA, APRIL L MANAGER BUSINESS OPERATIONS Ot 447.9 ARTERIAL DISEASE NOS 09/05/2016 LARRY KUO DO Ot 241.0 NONTOX UNINODULAR GOITER 09/05/2016 BAIMA, APRIL L MANAGER BUSINESS OPERATIONS Ot 272.4 HYPERLIPIDEMIA NEC/NOS 09/05/2016 BAIMA, APRIL L MANAGER BUSINESS OPERATIONS Ot 414.00 CORON ATHEROSCLER NOS TYPE VESSEL, NATIV 09/05/2016 BAIMA, APRIL L MANAGER BUSINESS OPERATIONS Ot 272.4 HYPERLIPIDEMIA NEC/NOS 09/05/2016 VENKAT NELSON MD Ot C61 MALIGNANT NEOPLASM OF PROSTATE 09/05/2016 BAIMA, APRIL L MANAGER BUSINESS OPERATIONS Ot E78.5 HYPERLIPIDEMIA, UNSPECIFIED 09/05/2016 APRIL BARRON MANAGER BUSINESS OPERATIONS Ot I25.10 ATHSCL HEART DISEASE OF [place] CORONARY 09/05/2016 APRIL BARRON MANAGER BUSINESS OPERATIONS Ot E78.5 HYPERLIPIDEMIA, UNSPECIFIED 09/05/2016 APRIL BARRON MANAGER BUSINESS OPERATIONS Ot I25.10 ATHSCL HEART DISEASE OF [place] CORONARY 09/05/2016 VICTOR M FERRARI [facility], ALI FACP CCDS Ot E78.4 OTHER HYPERLIPIDEMIA 09/05/2016 VICTOR M FERRARI FAC, ALI FACP CCDS Ot I10 ESSENTIAL (PRIMARY) HYPERTENSION 09/05/2016 VICTOR M FERRARI FAC, ALI FACP CCDS Ot I25.10 ATHSCL HEART DISEASE OF [place] CORONARY 09/05/2016 VICTOR M FERRARI [facility], ALI FACP CCDS Ot I65.23 OCCLUSION AND STENOSIS OF BILATERAL [place] 09/05/2016 VICTOR M FERRARI [facility], ALI FACP CCDS Ot Z72.0 TOBACCO USE [...] DIABETES MELLITUS WITHOUT COMPLIC 09/05/2016 RICHELLE FERRARI, BENA Love Ot Z79.84 ALF (CURRENT) USE OF ORAL HYPOGLYC 09/09/2016 ROXI [...] DUNLAP Ot I25.10 ATHSCL HEART DISEASE OF [place] CORONARY 09/11/2016 ROXI DUNLAP Ot Z79.84 ALF (CURRENT) USE OF ORAL HYPOGLYC 09/11/2016 ROXI DUNLAP Ot Z79.899 OTHER CLOTHER IN (CURRENT) DRUG THERAPY 09/11/2016 ROXI DUNLAP Ot [...] AND LUMP, NECK 09/19/2016 BAIMA, APRIL L MANAGER BUSINESS OPERATIONS Ot E78.5 HYPERLIPIDEMIA, UNSPECIFIED 09/19/2016 BAIMA, APRIL L MANAGER BUSINESS OPERATIONS Ot I10 ESSENTIAL (PRIMARY) HYPERTENSION 09/19/2016 BAIMA, APRIL L MANAGER BUSINESS OPERATIONS Ot I25.10 ATHSCL HEART DISEASE OF [place] CORONARY 09/19/2016 BAIMA, APRIL L MANAGER BUSINESS OPERATIONS Ot I77.9 DISORDER OF ARTERIES AND ARTERIOLES, UNS 09/19/2016 BAIMA, APRIL L MANAGER BUSINESS OPERATIONS Ot E78.5 HYPERLIPIDEMIA, UNSPECIFIED 09/19/2016 BAIMA, APRIL L MANAGER BUSINESS OPERATIONS Ot I10 ESSENTIAL (PRIMARY) HYPERTENSION 09/19/2016 BAIMA, APRIL L MANAGER BUSINESS OPERATIONS Ot I25.10 ATHSCL HEART DISEASE OF [place] CORONARY 09/19/2016 BAIMA, APRIL L MANAGER BUSINESS OPERATIONS Ot I77.9 DISORDER OF ARTERIES AND ARTERIOLES, UNS 09/19/2016 BAIMA, APRIL L MANAGER BUSINESS OPERATIONS Ot E78.5 HYPERLIPIDEMIA, UNSPECIFIED 09/19/2016 BAIMA, APRIL L MANAGER BUSINESS OPERATIONS Ot I10 ESSENTIAL (PRIMARY) HYPERTENSION 09/19/2016 BAIMA, APRIL L MANAGER BUSINESS OPERATIONS Ot I25.10 ATHSCL HEART DISEASE OF [place] CORONARY 09/19/2016 BAIMA, APRIL L MANAGER BUSINESS OPERATIONS Ot I77.9 DISORDER OF ARTERIES AND ARTERIOLES, UNS 09/19/2016 BAIMA, APRIL L MANAGER BUSINESS OPERATIONS Ot E78.5 HYPERLIPIDEMIA, UNSPECIFIED 09/19/2016 BAIMA, APRIL L MANAGER BUSINESS OPERATIONS Ot I10 ESSENTIAL (PRIMARY) HYPERTENSION 09/19/2016 BAIMA, APRIL L MANAGER BUSINESS OPERATIONS Ot I25.10 ATHSCL HEART DISEASE OF [place] CORONARY 09/19/2016 BAIMA, APRIL L MANAGER BUSINESS OPERATIONS Ot I77.9 DISORDER OF ARTERIES AND ARTERIOLES, UNS 09/19/2016 BAIMA, APRIL L MANAGER BUSINESS OPERATIONS Ot E78.5 HYPERLIPIDEMIA, UNSPECIFIED 09/19/2016 BAIMA, APRIL L MANAGER BUSINESS OPERATIONS Ot I10 ESSENTIAL (PRIMARY) HYPERTENSION 09/19/2016 APRIL BARRON MANAGER BUSINESS OPERATIONS Ot I25.10 ATHSCL HEART DISEASE OF [place] CORONARY 09/19/2016 APRIL BARRON MANAGER BUSINESS OPERATIONS Ot I77.9 DISORDER OF ARTERIES AND ARTERIOLES, UNS 09/24/2016 RICHELLE FERRARI, BEAN Love Ot E11.9 TYPE 2 DIABETES MELLITUS WITHOUT COMPLIC 09/24/2016 RICHELLE FERRARI, BEAN Love Ot E78.5 HYPERLIPIDEMIA, UNSPECIFIED 09/24/2016 RICHELLE FERRARI, BEAN Love Ot I10 ESSENTIAL (PRIMARY) HYPERTENSION 09/24/2016 RICHELLE FERRARI, BEAN Love Ot I25.10 ATHSCL HEART DISEASE OF [place] CORONARY 09/24/2016 RICHELLE FERRARI, BEAN Love Ot [...] LOCALIZED ENLARGED LYMPH NODES 10/09/2016 APRIL BARRON MANAGER BUSINESS OPERATIONS Ot E78.5 HYPERLIPIDEMIA, UNSPECIFIED 10/09/2016 APRIL BARRON MANAGER BUSINESS OPERATIONS Ot I10 ESSENTIAL (PRIMARY) HYPERTENSION 10/09/2016 BAIMA, APRIL L MANAGER BUSINESS OPERATIONS Ot I25.10 ATHSCL HEART DISEASE OF [place] CORONARY 10/09/2016 APRIL BARRON MANAGER BUSINESS OPERATIONS Ot I77.9 DISORDER OF ARTERIES AND ARTERIOLES, UNS 10/21/2016 GERMÁN ROXI Jay Ot C83.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, LYMPH NOD 10/21/2016 GERMÁN ROXI N Ot E11.9 TYPE 2 DIABETES MELLITUS WITHOUT COMPLIC 10/21/2016 GERMÁN ROXI Jay Ot E78.5 HYPERLIPIDEMIA, UNSPECIFIED 10/21/2016 GERMÁN ROXI N Ot I10 ESSENTIAL (PRIMARY) HYPERTENSION 10/21/2016 GERMÁN ROXI N Ot I25.10 ATHSCL HEART DISEASE OF [place] CORONARY 10/21/2016 GERMÁNROXI Ot Z79.84 CLOTHER IN (CURRENT) USE OF ORAL HYPOGLYC 10/21/2016 GERMÁNROXI N Ot Z79.899 OTHER CLOTHER IN (CURRENT) DRUG THERAPY 10/21/2016 GERMÁNROXI Ot Z87.891 PERSONAL HISTORY OF NICOTINE DEPENDENCE 10/21/2016 ROXI DUNLAP Ot Z95.5 PRESENCE OF CORONARY ANGIOPLASTY IMPLANT 10/23/2016 GERMÁNROXI N Ot C83.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, LYMPH NOD 10/23/2016 GERMÁN ROXI N Ot E11.9 TYPE 2 DIABETES MELLITUS WITHOUT COMPLIC 10/23/2016 GERMÁNROXI N Ot E78.5 HYPERLIPIDEMIA, UNSPECIFIED 10/23/2016 GERMÁNRXOI N Ot I10 ESSENTIAL (PRIMARY) HYPERTENSION 10/23/2016 GERMÁNROXI N Ot I25.10 ATHSCL HEART DISEASE OF [place] CORONARY 10/23/2016 GERMÁNROXI Ot Z79.84 CLOTHER IN (CURRENT) USE OF ORAL HYPOGLYC 10/23/2016 GERMÁNROXI N Ot Z79.899 OTHER CLOTHER IN (CURRENT) DRUG THERAPY 10/23/2016 ROXI DUNLAP N Ot Z87.891 PERSONAL HISTORY OF NICOTINE DEPENDENCE 10/23/2016 ORXI DUNLAP N Ot Z95.5 PRESENCE OF CORONARY ANGIOPLASTY IMPLANT 10/24/2016 LARRY KUO DO Ot A41.9 SEPSIS, UNSPECIFIED ORGANISM 10/24/2016 GELLENLARRY HENDERSON DO Ot C85.90 NON-HODGKIN LYMPHOMA, UNSPECIFIED, UNSPE 10/24/2016 LARRY KUO DO Ot 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 10/24/2016 [facility] D70.9 NEUTROPENIA, UNSPECIFIED 10/24/2016 [facility] LARRY Wiley Ot E11.9 TYPE 2 DIABETES MELLITUS WITHOUT COMPLIC 10/24/[facility] Wiley Ot E78.00 PURE HYPERCHOLESTEROLEMIA, UNSPECIFIED 10/24/2016 [facility] Ot I10 ESSENTIAL (PRIMARY) HYPERTENSION 10/24/2016 [facility].10 ATHSCL HEART DISEASE OF [place] CORONARY 10/24/2016 [facility] LARRY Wiley Ot K04.7 PERIAPICAL ABSCESS WITHOUT SINUS 10/24/2016 [facility] LARRY Wiley Ot M19.91 PRIMARY OSTEOARTHRITIS, UNSPECIFIED SITE 10/24/2016 [facility], LARRY Wiley Ot R50.81 FEVER PRESENTING WITH CONDITIONS CLASSIF 10/24/2016 [facility] LARRY Ot T45.1X5A ADVERSE EFFECT OF ANTINEOPLASTIC AND IMM 10/24/2016 [facility] Z79.84 ALF (CURRENT) USE OF ORAL HYPOGLYC 10/24/2016 [facility] Z85.46 PERSONAL HISTORY OF MALIGNANT NEOPLASM O 10/24/2016 [facility] Z87.891 PERSONAL HISTORY OF NICOTINE DEPENDENCE 10/24/2016 [facility] Z92.21 PERSONAL HISTORY OF ANTINEOPLASTIC CHEMO 10/24/2016 [facility] Z95.5 PRESENCE OF CORONARY ANGIOPLASTY IMPLANT [...] RESULTS NEGATIVE FOR ANTIGEN AND TOXIN A/B [facility] Complete blood count (CBC) with automated white [...] Status Pt. Type Provider Facility Loc./Unit Complaint [id number] 10/22/2016 18:26:00 2016 14:32:00 DIS Inpatient LARRY KUO DO [facility] 4TH NEUTROPENIC FEVER,TOOTH ABSCESS,NON [place] LYMPH [id number] 09/05/2016 10:25:00 2016 15:30:00 DIS Outpatient BEAN PEOPLES MD [facility] LYMPHOMA [id number] 09/04/2016 05:51:00 2016 13:58:00 DIS Outpatient BEAN PEOPLES MD [facility] PREOP LYMPHOMA [id number] 08/24/2016 21:25:00 2016 22:58:00 DIS Emergency OLGA LIDIA GARCIA APRN [facility] ER L LEG SWELLING [id number] 08/21/2016 11:22:00 2016 16:03:00 DIS Outpatient BEAN PEOPLES MD [facility] SDC LYMPHADENOTATHY [id number] 08/15/2016 11:29:00 2016 11:52:00 DIS Outpatient BEAN PEOPLES MD [facility] PREOP LYMPHADENOTATHY [id number] 06/15/2015 11:36:00 2014 23:59:59 CLS Outpatient VENKAT NELSON MD [facility] CARD PROSTATE [place] [id number] 03/17/2015 07:07:00 2014 23:59:59 CLS Outpatient BAIMA, APRIL L [employer] [facility] LAB HYPERLIPIDEMIA [id number] 09/01/2014 07:04:00 2014 23:59:59 CLS Outpatient BAIMA, APRIL L [employer] [facility] LAB CAD,HLP [id number] 05/17/2014 09:12:00 2013 23:59:59 CLS Outpatient LARRY KUO DO [facility] RAD THYROID NODULE RT SIDE [id number] 03/11/2014 07:01:00 2013 23:59:59 CLS Outpatient BAIMA, APRIL L [employer] [facility] LAB CAD,CAROTID ARTERIAL DISEASE ,HYPERLIPIDEMIA [id number] 08/02/2013 07:11:00 2013 23:59:59 CLS Outpatient BAIMA, APRIL L [employer] [facility] LAB CAD,HYPERLIPIDEMIA [id number] 04/13/2013 07:43:00 2012 23:59:59 CLS Outpatient BAIMA, APRIL L [employer] [facility] LAB HYPERLIPIDEMIA,STATIN TRX [id number] 03/05/2013 07:09:00 2012 23:59:59 CLS Outpatient BAIMA, APRIL L [employer] [facility] LAB CAD,HYPERTENSION, HYPERLIPIDEMIA,STATIN [place] [id number] 12/31/2012 07:12:00 2012 23:59:59 CLS Outpatient VICTOR M FERRARI FACC, ADONAY ANDRES CCDS [facility] LAB CAD,STATIN [place], HYPERLIPIDEMIA [id number] 10/30/2016 08:49:00 ACT Outpatient ROXI DUNLAP [facility] ONC [id number] 09/18/2016 08:59:00 ACT Outpatient BAIMA, APRIL L [employer]NA[employer] [facility] LAB [id number] 09/06/2016 07:41:00 ACT Outpatient ROXI DUNLAP [facility] CARD [id number] 09/03/2016 08:52:00 ACT Outpatient LARRY KUO DO [facility] RAD LYMPHOMA [id number] 08/13/2016 07:05:00 ACT Outpatient SHIELA LARRY CARTER [facility] CARD SCLEROTIC,LESION ON T4 AND T2 [id number] 08/12/2016 13:08:00 ACT Outpatient SHIELA LARRY CARTER [facility] RAD RIGHT SIDE OF NECK SWOLLEN [id number] 07/18/2016 08:14:00 ACT Outpatient SHIELA CARTER LARRY [facility] RAD COMPLICATED CYSTIC BESIUM [id number] 07/11/2016 10:39:00 ACT Outpatient SHIELA CARTER LARRY [facility] RAD CYST IN NECK [id number] 07/01/2016 11:52:00 ACT Outpatient SHIELA CARTER LARRY [facility] RAD PAIN IN RIGHT WRIST [id number] 05/07/2016 06:59:00 ACT Outpatient VICTOR M FERRARI FACC, ADONAY ANDRES CCDS [facility] CARD CAD,HLP,HTN,CAROTID ARTERIAL DISEASE [id number] 03/15/2016 07:14:00 ACT Outpatient APRIL BARRONP [facility] LAB CAD,HYPERLIPIDEMIA [id number] 09/15/2015 07:14:00 ACT Outpatient APRIL BARRON [facility] LAB CAD,HLP [id number] 03/17/2015 07:07:00 Document Registration [id number] 03/17/2015 07:07:00 Document Registration [id number] 03/17/2015 07:07:00 Document Registration [id number] 03/17/2015 07:07:00 Document Registration [id number] 03/17/2015 07:07:00 Document Registration [id number] 03/17/2015 07:07:00 Document Registration [id number] 03/17/2015 07:07:00 Document Registration [id number] 03/17/2015 07:07:00 Document Registration [id number] 10/26/2012 07:43:00 Document Registration [id number] 10/05/2012 10:15:00 Document Registration [id number] 06/23/2012 11:38:00 Document Registration [id number] 06/04/2012 13:53:00 Document Registration [id number] 05/28/2012 10:32:00 Document Registration [id number] 05/25/2012 06:56:00 Document Registration [id number] 05/22/2012 08:15:00 Document Registration [id number] 04/16/2012 07:26:00 Document Registration [id number] 01/07/2011 07:33:00 Document Registration [id number] 12/06/2010 07:35:00 Document Registration [id number] 10/08/2010 07:50:00 Document Registration [id number] 10/08/2010 07:49:00 Document Registration [id number] 08/30/2010 07:43:00 Document Registration [id number] 08/02/2010 08:11:00 Document Registration [id number] 07/06/2010 12:09:00 Document Registration [id number] 04/12/2010 08:08:00 Document Registration [id number] 04/04/2010 16:27:00 Document Registration [id number] 03/26/2010 09:52:00 Document Registration [id number] 03/21/2010 15:49:00 Document Registration [id number] 12/12/2009 13:34:00 Document Registration
== END 2016-10-24 14:32 | disposition home or self-care (01) | DRG 809 ==
LOC: DELPENDDIS → EDUNIT# 16:31 → ER 16:33 → 4TH 18:26
PROVIDERS: ADMIT Family Medicine; ATTEND Family Medicine
DX: D70.1 Agranulocytosis secondary to cancer chemotherapy (principal); R50.81 Fever presenting with conditions classified elsewhere; T45.1X5A Adverse effect of antineoplastic and immunosuppressive drugs, initial encounter; K04.7 Periapical abscess without sinus; C85.90 Non-Hodgkin lymphoma, unspecified, unspecified site; I25.10 Atherosclerotic heart disease of native coronary artery without angina pectoris; I10 Essential (primary) hypertension; E11.9 Type 2 diabetes mellitus without complications; E78.00 Pure hypercholesterolemia, unspecified; Z87.891 Personal history of nicotine dependence; Z95.5 Presence of coronary angioplasty implant and graft; Z79.84 Long term (current) use of oral hypoglycemic drugs; Z85.46 Personal history of malignant neoplasm of prostate; M19.91 Primary osteoarthritis, unspecified site; Z92.21 Personal history of antineoplastic chemotherapy
CPT/HCPCS: 36415; 71010; 80048; 80053; 81000; 83605; 85007; 85025; 85027; 85610; 85730; 87040; 87324; 87449; 96361; 96365; 96372; 96375

== ENCOUNTER → 2016-11-26 | Outpatient (CLI) | payer MEDICARE, OTHER ==
[~2016-11-26] MED LIST changes: +AMOX500C2 PO; +CLIN150C17 PO; +PRD20T PO; +ROSU20TA28 PO
--- NOTE | 2016-11-26 17:02 | Diagnostic Imaging Report ---
EXAMINATION: PET-CT TECHNIQUE: Serum glucose level at the time of the study is: 119 mg/dL. 12 mCi of FDG was administered intravenously followed by obtaining PET images with corresponding noncontrast CT scan images. The CT scan was performed for anatomic correlation and attenuation correction and was not performed according to the diagnostic protocol of the areas covered. The scan was performed from the head to mid thighs. INDICATION: Diffuse large cell lymphoma. COMPARISON: 09/03/2016. FINDINGS: There is symmetric FDG uptake seen in the brain. There is no hypermetabolic lesion seen in the neck with interval resolution of the previously seen hypermetabolic multiple lesions in the right tonsil and right side of the neck along the cervical chain as well as the left parotid gland. The localizer CT scan comparison also suggests resolution of the previously seen enlarged lymph nodes by CT scan. No hypermetabolic lesion is seen in the axilla, a significant improvement from the previous study. The previously seen lymph nodes in the axilla are less than a centimeter in size each, a normal size by CT criteria. No hypermetabolic lesion is seen in the chest. Mild nonspecific hypermetabolism is seen in the distal esophagus, may relate to esophagitis. The spleen is normal in size. No hypermetabolic enlarged lymph nodes in the abdomen or pelvis identified. The previously seen mildly enlarged left common iliac lymph nodes are less than a centimeter in size at this point. There is diffuse increased uptake in the colon, may relate to inflammatory or infectious colitis. Urinary tract excretion of the tracer is seen. IMPRESSION: 1. No suspicious hypermetabolic mass is seen compatible with complete response. 2. Mild increased FDG uptake in the distal esophagus may relate to esophagitis. Also diffuse increased FDG uptake in the colon is probably related to infectious or inflammatory colitis. Dictated by: Dictated on workstation # [id number]
== END ==
LOC: RAD 08:35
PROVIDERS: ATTEND Nurse Practitioner Adult Health
DX: C83.38 Diffuse large B-cell lymphoma, lymph nodes of multiple sites (principal)

== ENCOUNTER → 2016-12-04 | Outpatient (RCR) | payer MEDICARE, OTHER, BC ==
--- OUTSIDE RECORDS SUMMARY | 2016-09-05 08:41 | XMS REPORT | Continuity of Care Document ---
Author Author [facility] Organization [facility] Address Unknown Phone Unavailable Allergies Active Description Code Type Severity Reaction Onset Reported/Identified Relationship to Patient Clinical Status Yes sulfamethoxazole [id number] Drug Allergy Unknown N/A 10/07/2008 Yes trimethoprim [id number] Drug Allergy Unknown N/A 10/07/2008 Medications Problems [...] NOS 11/28/2010 Ot 414.01 CORONARY ATHEROSCLEROSIS OF [place] CORON 11/28/2010 Ot 415.19 OTH PULMON EMBOLISM/INFARCT 05/25/2012 Ot 211.4 BENIGN NEOPL RECTUM/ANUS 05/25/2012 Ot 250.00 DIAB DRISS WO COMPL, TYPE II OR UNSPEC TY 05/25/2012 Ot 272.0 PURE HYPERCHOLESTEROLEM 05/25/2012 Ot 401.9 HYPERTENSION NOS 05/25/2012 Ot 414.01 CORONARY ATHEROSCLEROSIS OF [place] CORON 05/25/2012 Ot 562.10 DIVERTICULOSIS COLON (W/O MENT OF HEMORR 05/25/2012 Ot V45.82 PERCUTANEOUS TRANSLUM CORON ANGIOPLASTY 05/25/2012 Ot V58.63 LONG-TERM(CURRENT)USE OF ANTIPLATELET/AN 05/25/2012 Ot V58.69 OTH MED,LT,CURRENT USE 05/25/2012 Ot V76.51 SCREEN MAL NEOP-COLON 06/05/2012 Ot 250.00 DIAB DRISS WO COMPL, TYPE II OR UNSPEC TY 06/05/2012 Ot 272.4 HYPERLIPIDEMIA NEC/NOS 06/05/2012 Ot 401.9 HYPERTENSION NOS 06/05/2012 Ot 414.01 CORONARY ATHEROSCLEROSIS OF [place] CORON 06/05/2012 Ot 562.10 DIVERTICULOSIS COLON (W/O [...] CCDS Ot 414.01 03/17/2015 VICTOR M FERRARI [facility], ALI FACP CCDS Ot V58.69 03/17/2015 BAIMA, APRIL L RETAIL SECURITY PROFESSIONAL Ot 272.4 03/17/2015 BAIMA, APRIL L RETAIL SECURITY PROFESSIONAL Ot 401.9 03/17/2015 BAIMA, APRIL L RETAIL SECURITY PROFESSIONAL Ot 414.01 03/17/2015 BAIMA, APRIL L RETAIL SECURITY PROFESSIONAL Ot 272.4 03/17/2015 BAIMA, APRIL L RETAIL SECURITY PROFESSIONAL Ot V58.69 03/17/2015 BAIMA, APRIL L RETAIL SECURITY PROFESSIONAL Ot 272.4 03/17/2015 BAIMA, APRIL L RETAIL SECURITY PROFESSIONAL Ot 414.00 03/17/2015 BAIMA, APRIL L RETAIL SECURITY PROFESSIONAL Ot 272.4 03/17/2015 BAIMA, APRIL L RETAIL SECURITY PROFESSIONAL Ot 414.00 03/17/2015 BAIMA, APRIL L RETAIL SECURITY PROFESSIONAL Ot 447.9 03/17/2015 LARRY KUO DO Ot 241.0 03/17/2015 BAIMA, APRIL L RETAIL SECURITY PROFESSIONAL Ot 272.4 03/17/2015 BAIMA, APRIL L RETAIL SECURITY PROFESSIONAL Ot 414.00 03/21/2015 BAIMA, APRIL L RETAIL SECURITY PROFESSIONAL Ot 272.4 03/24/2015 BAIMA, APRIL L RETAIL SECURITY PROFESSIONAL Ot 272.4 04/06/2015 BAIMA, APRIL L RETAIL SECURITY PROFESSIONAL Ot 272.4 07/05/2015 VENKAT NELSON MD Ot [...] FACP CCDS Ot V58.69 09/15/2015 APRIL BARRON RETAIL SECURITY PROFESSIONAL Ot 272.4 09/15/2015 APRIL BARRON RETAIL SECURITY PROFESSIONAL Ot 401.9 09/15/2015 BAIMA, APRIL L RETAIL SECURITY PROFESSIONAL Ot 414.01 09/15/2015 BAIMA, APRIL L RETAIL SECURITY PROFESSIONAL Ot 272.4 09/15/2015 BAIMA, APRIL L RETAIL SECURITY PROFESSIONAL Ot V58.69 09/15/2015 BAIMA, APRIL L RETAIL SECURITY PROFESSIONAL Ot 272.4 09/15/2015 BAIMA, APRIL L RETAIL SECURITY PROFESSIONAL Ot 414.00 09/15/2015 BAIMA, APRIL L RETAIL SECURITY PROFESSIONAL Ot 272.4 09/15/2015 BAIMA, APRIL L RETAIL SECURITY PROFESSIONAL Ot 414.00 09/15/2015 BAIMA, APRIL L RETAIL SECURITY PROFESSIONAL Ot 447.9 09/15/2015 LARRY KUO DO A Ot 241.0 09/15/2015 BAIMA, APRIL L RETAIL SECURITY PROFESSIONAL Ot 272.4 09/15/2015 BAIMA, APRIL L RETAIL SECURITY PROFESSIONAL Ot 414.00 09/15/2015 BAIMA, APRIL L RETAIL SECURITY PROFESSIONAL Ot 272.4 09/15/2015 VENKAT NELSON MD Ot C61 10/09/2015 BAIMA, APRIL L RETAIL SECURITY PROFESSIONAL Ot E78.5 10/09/2015 BAIMA, APRIL L RETAIL SECURITY PROFESSIONAL Ot I25.10 03/15/2016 Ot 272.4 HYPERLIPIDEMIA NEC/NOS 03/15/2016 Ot 401.9 HYPERTENSION NOS 03/15/2016 Ot 414.01 CORONARY ATHEROSCLEROSIS OF [place] CORON 03/15/2016 Ot V58.69 OTH MED,LT,CURRENT USE 03/15/2016 Ot 272.4 HYPERLIPIDEMIA NEC/NOS 03/15/2016 Ot 401.9 HYPERTENSION NOS 03/15/2016 Ot 414.01 CORONARY ATHEROSCLEROSIS OF [place] CORON 03/15/2016 Ot 415.19 OTH PULMON EMBOLISM/INFARCT [...] FACP CCDS Ot 414.01 CORONARY ATHEROSCLEROSIS OF [place] CORON 03/15/2016 VICTOR M FERRARI FACC, ALI FACP CCDS Ot V58.69 OTH MED,LT,CURRENT USE 03/15/2016 BAIMA, APRIL L RETAIL SECURITY PROFESSIONAL Ot 272.4 HYPERLIPIDEMIA NEC/NOS 03/15/2016 BAIMA, APRIL L RETAIL SECURITY PROFESSIONAL Ot 401.9 HYPERTENSION NOS 03/15/2016 BAIMA, APRIL L RETAIL SECURITY PROFESSIONAL Ot 414.01 CORONARY ATHEROSCLEROSIS OF [place] CORON 03/15/2016 BAIMA, APRIL L RETAIL SECURITY PROFESSIONAL Ot 272.4 HYPERLIPIDEMIA NEC/NOS 03/15/2016 BAIMA, APRIL L RETAIL SECURITY PROFESSIONAL Ot V58.69 OTH MED,LT,CURRENT USE 03/15/2016 BAIMA, APRIL L RETAIL SECURITY PROFESSIONAL Ot 272.4 HYPERLIPIDEMIA NEC/NOS 03/15/2016 BAIMA, APRIL L RETAIL SECURITY PROFESSIONAL Ot 414.00 CORON ATHEROSCLER NOS TYPE VESSEL, NATIV 03/15/2016 BAIMA, APRIL L RETAIL SECURITY PROFESSIONAL Ot 272.4 HYPERLIPIDEMIA NEC/NOS 03/15/2016 BAIMA, APRIL L RETAIL SECURITY PROFESSIONAL Ot 414.00 CORON ATHEROSCLER NOS TYPE VESSEL, NATIV 03/15/2016 BAIMA, APRIL L RETAIL SECURITY PROFESSIONAL Ot 447.9 ARTERIAL DISEASE NOS 03/15/2016 LARRY KUO DO Ot 241.0 NONTOX UNINODULAR GOITER 03/15/2016 BAIMA, APRIL L RETAIL SECURITY PROFESSIONAL Ot 272.4 HYPERLIPIDEMIA NEC/NOS 03/15/2016 BAIMA, APRIL L RETAIL SECURITY PROFESSIONAL Ot 414.00 CORON ATHEROSCLER NOS TYPE VESSEL, NATIV 03/15/2016 BAIMA, APRIL L RETAIL SECURITY PROFESSIONAL Ot 272.4 HYPERLIPIDEMIA NEC/NOS 03/15/2016 LESLIE FERRARI, VENKAT Wiley Ot C61 MALIGNANT NEOPLASM OF [place] 03/15/2016 BAIMA, APRIL L RETAIL SECURITY PROFESSIONAL Ot E78.5 HYPERLIPIDEMIA, UNSPECIFIED 03/15/2016 BAIMA, APRIL L RETAIL SECURITY PROFESSIONAL Ot I25.10 ATHSCL HEART DISEASE OF [place] CORONARY 03/15/2016 BAIMA, APRIL L RETAIL SECURITY PROFESSIONAL Ot I25.10 ATHSCL HEART DISEASE OF [place] CORONARY 03/19/2016 BAIMA, APRIL L RETAIL SECURITY PROFESSIONAL Ot E78.5 HYPERLIPIDEMIA, UNSPECIFIED 03/19/2016 BAIMA, APRIL L RETAIL SECURITY PROFESSIONAL Ot I25.10 ATHSCL HEART DISEASE OF [place] CORONARY 04/05/2016 BAIMA, APRIL L RETAIL SECURITY PROFESSIONAL Ot E78.5 HYPERLIPIDEMIA, UNSPECIFIED 04/05/2016 BAIMA, APRIL L RETAIL SECURITY PROFESSIONAL Ot I25.10 ATHSCL HEART DISEASE OF [place] CORONARY 05/07/2016 Ot 272.4 HYPERLIPIDEMIA NEC/NOS 05/07/2016 Ot 401.9 HYPERTENSION NOS 05/07/2016 Ot 414.01 CORONARY ATHEROSCLEROSIS OF [place] CORON 05/07/2016 Ot 415.19 OTH PULMON EMBOLISM/INFARCT [...] FACShekhar CCDS Ot 414.01 CORONARY ATHEROSCLEROSIS OF [place] CORON 05/07/2016 VICTOR M FERRARI FACC, ALI FACShekhar CCDS Ot V58.69 OTH MED,LT,CURRENT USE 05/07/2016 BAIMA, APRIL L RETAIL SECURITY PROFESSIONAL Ot 272.4 HYPERLIPIDEMIA NEC/NOS 05/07/2016 BAIMA, APRIL L RETAIL SECURITY PROFESSIONAL Ot 401.9 HYPERTENSION NOS 05/07/2016 BAIMA, APRIL L RETAIL SECURITY PROFESSIONAL Ot 414.01 CORONARY ATHEROSCLEROSIS OF [place] CORON 05/07/2016 BAIMA, APRIL L RETAIL SECURITY PROFESSIONAL Ot 272.4 HYPERLIPIDEMIA NEC/NOS 05/07/2016 BAIMA, APRIL L RETAIL SECURITY PROFESSIONAL Ot V58.69 OTH MED,LT,CURRENT USE 05/07/2016 BAIMA, APRIL L RETAIL SECURITY PROFESSIONAL Ot 272.4 HYPERLIPIDEMIA NEC/NOS 05/07/2016 BAIMA, APRIL L RETAIL SECURITY PROFESSIONAL Ot 414.00 CORON ATHEROSCLER NOS TYPE VESSEL, NATIV 05/07/2016 BAIMA, APRIL L RETAIL SECURITY PROFESSIONAL Ot 272.4 HYPERLIPIDEMIA NEC/NOS 05/07/2016 BAIAPRIL US L RETAIL SECURITY PROFESSIONAL Ot 414.00 CORON ATHEROSCLER NOS TYPE VESSEL, NATIV 05/07/2016 BAIMA APRIL L RETAIL SECURITY PROFESSIONAL Ot 447.9 ARTERIAL DISEASE NOS 05/07/2016 LARRY KUO DO Ot 241.0 NONTOX UNINODULAR GOITER 05/07/2016 BAIMAAPRIL L RETAIL SECURITY PROFESSIONAL Ot 272.4 HYPERLIPIDEMIA NEC/NOS 05/07/2016 BAIMAAPRIL L RETAIL SECURITY PROFESSIONAL Ot 414.00 CORON ATHEROSCLER NOS TYPE VESSEL, NATIV 05/07/2016 BAIMA, APRIL L RETAIL SECURITY PROFESSIONAL Ot 272.4 HYPERLIPIDEMIA NEC/NOS 05/07/2016 LESLIE FERRARI, VENKAT Wiley Ot C61 MALIGNANT NEOPLASM OF [place] 05/07/2016 BAIMA, APRIL L RETAIL SECURITY PROFESSIONAL Ot E78.5 HYPERLIPIDEMIA, UNSPECIFIED 05/07/2016 BAIMA, APRIL L RETAIL SECURITY PROFESSIONAL Ot I25.10 ATHSCL HEART DISEASE OF [place] CORONARY 05/07/2016 KASANDRAAPRIL US L RETAIL SECURITY PROFESSIONAL Ot E78.5 HYPERLIPIDEMIA, UNSPECIFIED 05/07/2016 BAIMA, APRIL L RETAIL SECURITY PROFESSIONAL Ot I25.10 ATHSCL HEART DISEASE OF [place] CORONARY 05/28/2016 VICTOR M FERRARI FACC, ADONAY FACP CCDS Ot E78.4 OTHER HYPERLIPIDEMIA 05/28/2016 VICTOR M FERRARI FACC, ADONAY FACP CCDS Ot I10 ESSENTIAL (PRIMARY) HYPERTENSION 05/28/2016 VICTOR M FERRARI FACC, ALI FACP CCDS Ot I25.10 ATHSCL HEART DISEASE OF [place] CORONARY 05/28/2016 VICTOR M FERRARI FACC, ADONAY [...] CCDS Ot I25.10 ATHSCL HEART DISEASE OF [place] CORONARY 05/31/2016 VICTOR M FERRARI FACC, ADONAY [...] ANDRES CCDS Ot 414.01 CORONARY ATHEROSCLEROSIS OF [place] CORON 07/18/2016 VICTOR M FERRARI FACC, ADONAY ANDRES CCDS Ot V58.69 OTH MED,LT,CURRENT USE 07/18/2016 BAIMA, APRIL L RETAIL SECURITY PROFESSIONAL Ot 272.4 HYPERLIPIDEMIA NEC/NOS 07/18/2016 BAIMA, APRIL L RETAIL SECURITY PROFESSIONAL Ot 401.9 HYPERTENSION NOS 07/18/2016 BAIMA, APRIL L RETAIL SECURITY PROFESSIONAL Ot 414.01 CORONARY ATHEROSCLEROSIS OF [place] CORON 07/18/2016 BAIMA, APRIL L RETAIL SECURITY PROFESSIONAL Ot 272.4 HYPERLIPIDEMIA NEC/NOS 07/18/2016 BAIMA, APRIL L RETAIL SECURITY PROFESSIONAL Ot V58.69 OTH MED,LT,CURRENT USE 07/18/2016 BAIMA, APRIL L RETAIL SECURITY PROFESSIONAL Ot 272.4 HYPERLIPIDEMIA NEC/NOS 07/18/2016 BAIMA, APRIL L RETAIL SECURITY PROFESSIONAL Ot 414.00 CORON ATHEROSCLER NOS TYPE VESSEL, NATIV 07/18/2016 BAIMA, APRIL L RETAIL SECURITY PROFESSIONAL Ot 272.4 HYPERLIPIDEMIA NEC/NOS 07/18/2016 BAIMA, APRIL L RETAIL SECURITY PROFESSIONAL Ot 414.00 CORON ATHEROSCLER NOS TYPE VESSEL, NATIV 07/18/2016 BAIMA, APRIL L RETAIL SECURITY PROFESSIONAL Ot 447.9 ARTERIAL DISEASE NOS 07/18/2016 SHIELA DOLARRY A Ot 241.0 NONTOX UNINODULAR GOITER 07/18/2016 BAIMA, APRIL L RETAIL SECURITY PROFESSIONAL Ot 272.4 HYPERLIPIDEMIA NEC/NOS 07/18/2016 BAIMA, APRIL L RETAIL SECURITY PROFESSIONAL Ot 414.00 CORON ATHEROSCLER NOS TYPE VESSEL, NATIV 07/18/2016 BAIMA, APRIL L RETAIL SECURITY PROFESSIONAL Ot 272.4 HYPERLIPIDEMIA NEC/NOS 07/18/2016 VENKAT NELSON MD Ot C61 MALIGNANT NEOPLASM OF [place] 07/18/2016 BAIMA, APRIL L RETAIL SECURITY PROFESSIONAL Ot E78.5 HYPERLIPIDEMIA, UNSPECIFIED 07/18/2016 BAIMA, APIRL L RETAIL SECURITY PROFESSIONAL Ot I25.10 ATHSCL HEART DISEASE OF [place] CORONARY 07/18/2016 BAIMA, APRIL L RETAIL SECURITY PROFESSIONAL Ot E78.5 HYPERLIPIDEMIA, UNSPECIFIED 07/18/2016 BAIMA, APRIL L RETAIL SECURITY PROFESSIONAL Ot I25.10 ATHSCL HEART DISEASE OF [place] CORONARY 07/18/2016 ADONAY DOW MD, FACC, FACP CCDS Ot E78.4 OTHER HYPERLIPIDEMIA 07/18/2016 VICTOR M FERRARI FACC, [facility] Ot I10 ESSENTIAL (PRIMARY) HYPERTENSION 07/18/2016 VICTOR M FERRARI FACC, ADONAY [facility] CCDS Ot I25.10 ATHSCL HEART DISEASE OF [place] CORONARY 07/18/2016 VICTOR M FERRARI FACC, ADONAY [facility] CCDS Ot I65.23 OCCLUSION AND STENOSIS OF [...] MD Ot I25.10 ATHSCL HEART DISEASE OF [place] CORONARY 08/21/2016 BEAN PEOPLES MD Ot R59.0 LOCALIZED ENLARGED LYMPH NODES 08/21/2016 BEAN PEOPLES MD Ot Z87.891 PERSONAL HISTORY OF NICOTINE DEPENDENCE 08/22/2016 BEAN PEOPLES MD Ot E11.9 TYPE 2 DIABETES MELLITUS WITHOUT COMPLIC 08/22/2016 BEAN PEOPLES MD Ot E78.5 HYPERLIPIDEMIA, UNSPECIFIED 08/22/2016 BEAN PEOPLES MD Ot I10 ESSENTIAL (PRIMARY) HYPERTENSION 08/22/2016 BEAN PEOPLES MD Ot I25.10 ATHSCL HEART DISEASE OF [place] CORONARY 08/22/2016 BEAN PEOPLES MD Ot R59.0 LOCALIZED ENLARGED LYMPH NODES 08/22/2016 BEAN PEOPLES MD Ot Z87.891 PERSONAL HISTORY OF NICOTINE DEPENDENCE 08/26/2016 OLGA LIDIA GARCIA MANAGEMENT SME Ot E11.9 TYPE 2 DIABETES MELLITUS WITHOUT COMPLIC 08/26/2016 OLGA LIDIA GARCIA MANAGEMENT SME Ot I10 ESSENTIAL (PRIMARY) HYPERTENSION 08/26/2016 OLGA LIDIA GARCIA MANAGEMENT SME Ot R22.42 LOCALIZED SWELLING, MASS AND LUMP, LEFT 08/26/2016 OLGA LIDIA GARCIA MANAGEMENT SME Ot R59.0 LOCALIZED ENLARGED LYMPH NODES 08/26/2016 OLGA LIDIA GARCIA MANAGEMENT SME Ot Z79.02 [facility] (CURRENT) USE OF ANTITHROMBOTI 08/26/2016 OLGA LIDIA GARCIA MANAGEMENT SME Ot Z79.84 [facility] (CURRENT) USE OF ORAL HYPOGLYC 08/26/2016 OLGA LIDIA GARCIA MANAGEMENT SME Ot Z79.899 OTHER SENIOR CARE (CURRENT) DRUG THERAPY 09/05/2016 BEAN PEOPLES MD Ot E11.9 TYPE 2 DIABETES MELLITUS WITHOUT COMPLIC 09/05/2016 BEAN PEOPLES MD Ot E78.5 HYPERLIPIDEMIA, UNSPECIFIED 09/05/2016 BEAN PEOPLES MD Ot I10 ESSENTIAL (PRIMARY) HYPERTENSION 09/05/2016 BEAN PEOPLES MD Ot I25.10 ATHSCL HEART DISEASE OF [place] CORONARY 09/05/2016 BEAN PEOPLES MD Ot R59.0 LOCALIZED ENLARGED LYMPH NODES 09/05/2016 RICHELLE FERRARI, BEAN Love Ot Z87.891 PERSONAL HISTORY OF NICOTINE DEPENDENCE Procedures Code Description Performed By Performed On [...] resistant Staphylococcus aureus (MRSA) screening culture - 01/19/ 17 11:42 Methicillin resistant Staphylococcus aureus (MRSA) screening [...] Status Pt. Type Provider Facility Loc./Unit Complaint [id number] 09/04/2016 05:51:00 2016 13:58:00 DIS Outpatient BEAN PEOPLES MD [facility] PREOP LYMPHOMA [id number] 08/24/2016 21:25:00 2016 22:58:00 DIS Outpatient OLGA LIDIA GARCIA APRN [facility] ER L LEG SWELLING [id number] 08/21/2016 11:22:00 2016 16:03:00 DIS Outpatient BEAN PEOPLES MD [facility] SDC LYMPHADENOTATHY [id number] 08/15/2016 11:29:00 2016 11:52:00 DIS Outpatient BEAN PEOPLES MD [facility] PREOP LYMPHADENOTATHY [id number] 06/15/2015 11:36:00 2014 23:59:59 CLS Outpatient VENKAT NELSON MD [facility] CARD PROSTATE CA [id number] 03/17/2015 07:07:00 2014 23:59:59 CLS Outpatient APRIL BARRON [facility] LAB HYPERLIPIDEMIA [id number] 09/01/2014 07:04:00 2014 23:59:59 CLS Outpatient APRIL BARRON [facility] LAB CAD,HLP [id number] 05/17/2014 09:12:00 2013 23:59:59 CLS Outpatient LARRY KUO DO [facility] RAD THYROID NODULE RT SIDE [id number] 03/11/2014 07:01:00 2013 23:59:59 CLS Outpatient BAIMA, APRIL L RETAIL SECURITY PROFESSIONAL [facility] LAB CAD,CAROTID ARTERIAL DISEASE ,HYPERLIPIDEMIA [id number] 08/02/2013 07:11:00 2013 23:59:59 CLS Outpatient BAIMA, APRIL L RETAIL SECURITY PROFESSIONAL [facility] LAB CAD,HYPERLIPIDEMIA [id number] 04/13/2013 07:43:00 2012 23:59:59 CLS Outpatient BAIMA, APRIL L RETAIL SECURITY PROFESSIONAL [facility] LAB HYPERLIPIDEMIA,STATIN TRX [id number] 03/05/2013 07:09:00 2012 23:59:59 CLS Outpatient BAIAPRIL US L RETAIL SECURITY PROFESSIONAL [facility] LAB CAD,HYPERTENSION, HYPERLIPIDEMIA,STATIN [place] [id number] 12/31/2012 07:12:00 2012 23:59:59 CLS Outpatient VICTOR M FERRARI FACC, ADONAY ANDRES CCDS [facility] LAB CAD,STATIN [place], HYPERLIPIDEMIA [id number] 09/05/2016 15:35:00 PEN Preadmit ROXI DUNLAP [facility] ONC [id number] 09/05/2016 12:00:00 PEN Preadmit BEAN PEOPLES MD [facility] SDC LYMPHOMA [id number] 09/03/2016 08:52:00 ACT Outpatient LARRY KUO DO [facility] RAD LYMPHOMA [id number] 08/13/2016 07:05:00 ACT Outpatient LARRY KUO DO [facility] CARD SCLEROTIC,LESION ON T4 AND T2 [id number] 08/12/2016 13:08:00 ACT Outpatient LARRY KUO DO [facility] RAD RIGHT SIDE OF NECK SWOLLEN [id number] 07/18/2016 08:14:00 ACT Outpatient LARRY KUO DO [facility] RAD COMPLICATED CYSTIC BESIUM [id number] 07/11/2016 10:39:00 ACT Outpatient LARRY KUO DO [facility] RAD CYST IN NECK [id number] 07/01/2016 11:52:00 ACT Outpatient LARRY KUO DO [facility] RAD PAIN IN RIGHT WRIST [id number] 05/07/2016 06:59:00 ACT Outpatient VICTOR M FERRARI FACC, ADONAY ANDRES CCDS [facility] CARD CAD,HLP,HTN,CAROTID ARTERIAL DISEASE [id number] 03/15/2016 07:14:00 ACT Outpatient KASANDRAMAHOLLISAPRIL L RETAIL SECURITY PROFESSIONAL [facility] LAB CAD,HYPERLIPIDEMIA [id number] 09/15/2015 07:14:00 ACT Outpatient HOLLIS BARRONHER L RETAIL SECURITY PROFESSIONAL [facility] LAB CAD,HLP [id number] 03/17/2015 07:07:00 Document Registration [id number] 03/17/2015 07:07:00 Document Registration [id number] 03/17/2015 07:07:00 Document Registration [id number] 03/17/2015 07:07:00 Document Registration [id number] 03/17/2015 07:07:00 Document Registration [id number] 03/17/2015 07:07:00 Document Registration [id number] 03/17/2015 07:07:00 Document Registration [id number] 03/17/2015 07:07:00 Document Registration [id number] 10/26/2012 07:43:00 Document Registration [id number] 10/05/2012 10:15:00 Document Registration [id number] 06/23/2012 11:38:00 Document Registration [id number] 06/04/2012 13:53:00 Document Registration [id number] 05/28/2012 10:32:00 Document Registration [id number] 05/25/2012 06:56:00 Document Registration [id number] 05/22/2012 08:15:00 Document Registration [id number] 04/16/2012 07:26:00 Document Registration [id number] 01/07/2011 07:33:00 Document Registration [id number] 12/06/2010 07:35:00 Document Registration [id number] 10/08/2010 07:50:00 Document Registration [id number] 10/08/2010 07:49:00 Document Registration [id number] 08/30/2010 07:43:00 Document Registration [id number] 08/02/2010 08:11:00 Document Registration [id number] 07/06/2010 12:09:00 Document Registration [id number] 04/12/2010 08:08:00 Document Registration [id number] 04/04/2010 16:27:00 Document Registration [id number] 03/26/2010 09:52:00 Document Registration [id number] 03/21/2010 15:49:00 Document Registration [id number] 12/12/2009 13:34:00 Document Registration
[2016-09-05 10:24] LABS: BASOPHILS % (AUTO) 0 % (0-10); EOSINOPHILS # (AUTO) 0.1 10^3/uL (0.0-0.3); EOSINOPHILS % (AUTO) 2 % (0-10); LYMPHOCYTES # (AUTO) 1.1 X 10^3 (1.0-4.0); LYMPHOCYTES % (AUTO) 18 % (12-44); MEAN CORPUSCULAR HEMOGLOBIN 30 PG (25-34); MEAN CORPUSCULAR HGB CONC 34 G/DL (32-36); MEAN CORPUSCULAR VOLUME 88 FL (80-99); MEAN PLATELET VOLUME 9.7 FL (7.4-10.4); MONOCYTES # (AUTO) 0.5 X 10^3 (0.0-1.0); MONOCYTES % (AUTO) 8 % (0-12); NEUTROPHILS # (AUTO) 4.2 X 10^3 (1.8-7.8); NEUTROPHILS % (AUTO) 71 % (42-75); PLATELET COUNT 235 10^3/uL (130-400); RED BLOOD COUNT 4.84 10^6/uL (4.35-5.85); RED CELL DISTRIBUTION WIDTH 13.4 % (10.0-14.5); WHITE BLOOD COUNT 5.9 10^3/uL (4.3-11.0)
[2016-09-05 11:01] LABS: ALANINE AMINOTRANSFERASE 25 U/L (0-55); ALBUMIN 4.2 G/DL (3.2-4.5); ANION GAP 10 MMOL/L (5-14); ASPARTATE AMINO TRANSFERASE 23 U/L (5-34); BILIRUBIN,TOTAL 0.4 MG/DL (0.1-1.0); BLOOD UREA NITROGEN 11 MG/DL (7-18); BUN/CREATININE RATIO 14; CALCIUM 9.4 MG/DL (8.5-10.1); CARBON DIOXIDE 22 MMOL/L (21-32); CHLORIDE 109 MMOL/L (98-107); GFR ESTIMATED > 60; GLUCOSE 114 MG/DL (70-105); LACTATE DEHYDROGENASE 156 U/L (125-220); POTASSIUM 4.4 MMOL/L (3.6-5.0); SODIUM 141 MMOL/L (135-145); TOTAL PROTEIN 6.7 G/DL (6.4-8.2); URIC ACID 5.2 MG/DL (2.6-7.2)
[2016-09-05 22:46] LABS: HEPATITIS B SURFACE AB INDEX <3.10 mIU/mL (>=10.00); HEPATITIS B SURFACE AB INTERP Non-Immune (Immune)
[2016-09-18 09:12] LABS: BASOPHILS % (AUTO) 0 % (0-10); EOSINOPHILS # (AUTO) 0.2 10^3/uL (0.0-0.3); EOSINOPHILS % (AUTO) 4 % (0-10); LYMPHOCYTES # (AUTO) 0.8 X 10^3 (1.0-4.0); LYMPHOCYTES % (AUTO) 14 % (12-44); MEAN CORPUSCULAR HEMOGLOBIN 30 PG (25-34); MEAN CORPUSCULAR HGB CONC 34 G/DL (32-36); MEAN CORPUSCULAR VOLUME 88 FL (80-99); MEAN PLATELET VOLUME 9.5 FL (7.4-10.4); MONOCYTES # (AUTO) 0.1 X 10^3 (0.0-1.0); MONOCYTES % (AUTO) 2 % (0-12); NEUTROPHILS # (AUTO) 4.3 X 10^3 (1.8-7.8); NEUTROPHILS % (AUTO) 80 % (42-75); PLATELET COUNT 218 10^3/uL (130-400); RED BLOOD COUNT 4.47 10^6/uL (4.35-5.85); RED CELL DISTRIBUTION WIDTH 12.6 % (10.0-14.5); WHITE BLOOD COUNT 5.4 10^3/uL (4.3-11.0)
[2016-09-25 11:42] LABS: BASOPHILS % (AUTO) 1 % (0-10); EOSINOPHILS % (AUTO) 1 % (0-10); LYMPHOCYTES % (AUTO) 43 % (12-44); MEAN CORPUSCULAR HEMOGLOBIN 30 PG (25-34); MEAN CORPUSCULAR HGB CONC 35 G/DL (32-36); MEAN CORPUSCULAR VOLUME 88 FL (80-99); MEAN PLATELET VOLUME 9.4 FL (7.4-10.4); MONOCYTES # (AUTO) 0.5 X 10^3 (0.0-1.0); MONOCYTES % (AUTO) 23 % (0-12); NEUTROPHILS # (AUTO) 0.8 X 10^3 (1.8-7.8); NEUTROPHILS % (AUTO) 32 % (42-75); PLATELET COUNT 258 10^3/uL (130-400); RED BLOOD COUNT 4.75 10^6/uL (4.35-5.85); RED CELL DISTRIBUTION WIDTH 13.3 % (10.0-14.5); WHITE BLOOD COUNT 2.4 10^3/uL (4.3-11.0)
[2016-09-25 12:17] LABS: ANION GAP 10 MMOL/L (5-14); BLOOD UREA NITROGEN 12 MG/DL (7-18); BUN/CREATININE RATIO 15; CALCIUM 9.5 MG/DL (8.5-10.1); CARBON DIOXIDE 21 MMOL/L (21-32); CHLORIDE 109 MMOL/L (98-107); GFR ESTIMATED > 60; GLUCOSE 95 MG/DL (70-105); POTASSIUM 4.9 MMOL/L (3.6-5.0); SODIUM 140 MMOL/L (135-145); URIC ACID 4.2 MG/DL (2.6-7.2)
[2016-10-02 09:13] LABS: BASOPHILS % (AUTO) 1 % (0-10); EOSINOPHILS % (AUTO) 1 % (0-10); LYMPHOCYTES # (AUTO) 1.3 X 10^3 (1.0-4.0); LYMPHOCYTES % (AUTO) 27 % (12-44); MEAN CORPUSCULAR HEMOGLOBIN 30 PG (25-34); MEAN CORPUSCULAR HGB CONC 35 G/DL (32-36); MEAN CORPUSCULAR VOLUME 87 FL (80-99); MEAN PLATELET VOLUME 9.6 FL (7.4-10.4); MONOCYTES # (AUTO) 0.9 X 10^3 (0.0-1.0); MONOCYTES % (AUTO) 19 % (0-12); NEUTROPHILS # (AUTO) 2.5 X 10^3 (1.8-7.8); NEUTROPHILS % (AUTO) 53 % (42-75); PLATELET COUNT 310 10^3/uL (130-400); RED BLOOD COUNT 4.81 10^6/uL (4.35-5.85); RED CELL DISTRIBUTION WIDTH 13.2 % (10.0-14.5); WHITE BLOOD COUNT 4.8 10^3/uL (4.3-11.0)
[2016-10-02 09:50] LABS: ANION GAP 10 MMOL/L (5-14); BLOOD UREA NITROGEN 12 MG/DL (7-18); BUN/CREATININE RATIO 14; CALCIUM 10.1 MG/DL (8.5-10.1); CARBON DIOXIDE 25 MMOL/L (21-32); CHLORIDE 107 MMOL/L (98-107); CREATININE SERUM 0.88 MG/DL (0.60-1.30); GFR ESTIMATED > 60; GLUCOSE 108 MG/DL (70-105); POTASSIUM 4.2 MMOL/L (3.6-5.0); SODIUM 142 MMOL/L (135-145); URIC ACID 4.7 MG/DL (2.6-7.2)
[2016-10-09 10:09] LABS: BASOPHILS % (AUTO) 0 % (0-10); EOSINOPHILS # (AUTO) 0.1 10^3/uL (0.0-0.3); EOSINOPHILS % (AUTO) 1 % (0-10); LYMPHOCYTES # (AUTO) 1.5 X 10^3 (1.0-4.0); LYMPHOCYTES % (AUTO) 21 % (12-44); MEAN CORPUSCULAR HEMOGLOBIN 30 PG (25-34); MEAN CORPUSCULAR HGB CONC 35 G/DL (32-36); MEAN CORPUSCULAR VOLUME 86 FL (80-99); MEAN PLATELET VOLUME 9.9 FL (7.4-10.4); MONOCYTES # (AUTO) 0.8 X 10^3 (0.0-1.0); MONOCYTES % (AUTO) 11 % (0-12); NEUTROPHILS # (AUTO) 4.9 X 10^3 (1.8-7.8); NEUTROPHILS % (AUTO) 67 % (42-75); PLATELET COUNT 281 10^3/uL (130-400); RED BLOOD COUNT 4.83 10^6/uL (4.35-5.85); RED CELL DISTRIBUTION WIDTH 13.2 % (10.0-14.5); WHITE BLOOD COUNT 7.3 10^3/uL (4.3-11.0)
[2016-10-09 10:49] LABS: ALANINE AMINOTRANSFERASE 23 U/L (0-55); ALBUMIN 4.1 G/DL (3.2-4.5); ANION GAP 9 MMOL/L (5-14); ASPARTATE AMINO TRANSFERASE 16 U/L (5-34); BILIRUBIN,TOTAL 0.4 MG/DL (0.1-1.0); CALCIUM 9.8 MG/DL (8.5-10.1); CARBON DIOXIDE 21 MMOL/L (21-32); CHLORIDE 109 MMOL/L (98-107); CREATININE SERUM 0.79 MG/DL (0.60-1.30); GFR ESTIMATED > 60; GLUCOSE 78 MG/DL (70-105); LACTATE DEHYDROGENASE 153 U/L (125-220); MAGNESIUM 1.8 MG/DL (1.8-2.4); POTASSIUM 4.1 MMOL/L (3.6-5.0); SODIUM 139 MMOL/L (135-145); TOTAL PROTEIN 6.6 G/DL (6.4-8.2); URIC ACID 4.6 MG/DL (2.6-7.2)
[2016-10-09 11:22] LABS: BLOOD UREA NITROGEN 10 MG/DL (7-18); BUN/CREATININE RATIO 13
[2016-10-16 09:44] LABS: BASOPHILS % (AUTO) 0 % (0-10); EOSINOPHILS % (AUTO) 1 % (0-10); LYMPHOCYTES # (AUTO) 0.6 X 10^3 (1.0-4.0); LYMPHOCYTES % (AUTO) 7 % (12-44); MEAN CORPUSCULAR HEMOGLOBIN 30 PG (25-34); MEAN CORPUSCULAR HGB CONC 35 G/DL (32-36); MEAN CORPUSCULAR VOLUME 88 FL (80-99); MEAN PLATELET VOLUME 9.8 FL (7.4-10.4); MONOCYTES # (AUTO) 0.1 X 10^3 (0.0-1.0); MONOCYTES % (AUTO) 1 % (0-12); NEUTROPHILS % (AUTO) 92 % (42-75); PLATELET COUNT 236 10^3/uL (130-400); RED BLOOD COUNT 4.45 10^6/uL (4.35-5.85); RED CELL DISTRIBUTION WIDTH 12.9 % (10.0-14.5); WHITE BLOOD COUNT 8.7 10^3/uL (4.3-11.0)
[2016-10-16 10:17] LABS: ANION GAP 7 MMOL/L (5-14); BLOOD UREA NITROGEN 12 MG/DL (7-18); BUN/CREATININE RATIO 15; CALCIUM 8.9 MG/DL (8.5-10.1); CARBON DIOXIDE 25 MMOL/L (21-32); CHLORIDE 109 MMOL/L (98-107); CREATININE SERUM 0.81 MG/DL (0.60-1.30); GFR ESTIMATED > 60; GLUCOSE 165 MG/DL (70-105); POTASSIUM 4.1 MMOL/L (3.6-5.0); SODIUM 141 MMOL/L (135-145)
[2016-10-30 09:45] LABS: BASOPHILS % (AUTO) 0 % (0-10); EOSINOPHILS % (AUTO) 0 % (0-10); LYMPHOCYTES # (AUTO) 0.9 X 10^3 (1.0-4.0); LYMPHOCYTES % (AUTO) 9 % (12-44); MEAN CORPUSCULAR HEMOGLOBIN 30 PG (25-34); MEAN CORPUSCULAR HGB CONC 34 G/DL (32-36); MEAN CORPUSCULAR VOLUME 88 FL (80-99); MEAN PLATELET VOLUME 10.4 FL (7.4-10.4); MONOCYTES # (AUTO) 0.4 X 10^3 (0.0-1.0); MONOCYTES % (AUTO) 4 % (0-12); NEUTROPHILS # (AUTO) 8.5 X 10^3 (1.8-7.8); NEUTROPHILS % (AUTO) 87 % (42-75); PLATELET COUNT 320 10^3/uL (130-400); RED BLOOD COUNT 4.45 10^6/uL (4.35-5.85); RED CELL DISTRIBUTION WIDTH 13.6 % (10.0-14.5); WHITE BLOOD COUNT 9.8 10^3/uL (4.3-11.0)
[2016-10-30 10:03] LABS: ANION GAP 10 MMOL/L (5-14); BLOOD UREA NITROGEN 10 MG/DL (7-18); BUN/CREATININE RATIO 14; CALCIUM 9.5 MG/DL (8.5-10.1); CARBON DIOXIDE 24 MMOL/L (21-32); CHLORIDE 108 MMOL/L (98-107); CREATININE SERUM 0.74 MG/DL (0.60-1.30); GFR ESTIMATED > 60; GLUCOSE 124 MG/DL (70-105); POTASSIUM 4.4 MMOL/L (3.6-5.0); SODIUM 142 MMOL/L (135-145); URIC ACID 3.4 MG/DL (2.6-7.2)
[2016-11-06 09:57] LABS: BASOPHILS # (AUTO) 0.1 10^3/uL (0.0-0.1); BASOPHILS % (AUTO) 1 % (0-10); EOSINOPHILS # (AUTO) 0.1 10^3/uL (0.0-0.3); EOSINOPHILS % (AUTO) 1 % (0-10); LYMPHOCYTES # (AUTO) 1.1 X 10^3 (1.0-4.0); LYMPHOCYTES % (AUTO) 18 % (12-44); MEAN CORPUSCULAR HEMOGLOBIN 30 PG (25-34); MEAN CORPUSCULAR HGB CONC 33 G/DL (32-36); MEAN CORPUSCULAR VOLUME 90 FL (80-99); MEAN PLATELET VOLUME 9.8 FL (7.4-10.4); MONOCYTES # (AUTO) 0.7 X 10^3 (0.0-1.0); MONOCYTES % (AUTO) 12 % (0-12); NEUTROPHILS # (AUTO) 3.9 X 10^3 (1.8-7.8); NEUTROPHILS % (AUTO) 68 % (42-75); PLATELET COUNT 382 10^3/uL (130-400); RED CELL DISTRIBUTION WIDTH 14.5 % (10.0-14.5); WHITE BLOOD COUNT 5.8 10^3/uL (4.3-11.0)
[2016-11-06 10:20] LABS: ALANINE AMINOTRANSFERASE 28 U/L (0-55); ALBUMIN 3.8 G/DL (3.2-4.5); ANION GAP 7 MMOL/L (5-14); ASPARTATE AMINO TRANSFERASE 18 U/L (5-34); BILIRUBIN,TOTAL 0.3 MG/DL (0.1-1.0); BLOOD UREA NITROGEN 11 MG/DL (7-18); BUN/CREATININE RATIO 14; CALCIUM 9.4 MG/DL (8.5-10.1); CARBON DIOXIDE 24 MMOL/L (21-32); CHLORIDE 111 MMOL/L (98-107); CREATININE SERUM 0.78 MG/DL (0.60-1.30); GFR ESTIMATED > 60; GLUCOSE 83 MG/DL (70-105); LACTATE DEHYDROGENASE 168 U/L (125-220); MAGNESIUM 1.7 MG/DL (1.8-2.4); POTASSIUM 4.3 MMOL/L (3.6-5.0); SODIUM 142 MMOL/L (135-145); TOTAL PROTEIN 6.2 G/DL (6.4-8.2); URIC ACID 4.1 MG/DL (2.6-7.2)
[2016-11-13 09:07] LABS: BASOPHILS % (AUTO) 1 % (0-10); EOSINOPHILS # (AUTO) 0.1 10^3/uL (0.0-0.3); EOSINOPHILS % (AUTO) 2 % (0-10); LYMPHOCYTES # (AUTO) 0.4 X 10^3 (1.0-4.0); LYMPHOCYTES % (AUTO) 12 % (12-44); MEAN CORPUSCULAR HEMOGLOBIN 30 PG (25-34); MEAN CORPUSCULAR HGB CONC 33 G/DL (32-36); MEAN CORPUSCULAR VOLUME 90 FL (80-99); MEAN PLATELET VOLUME 9.8 FL (7.4-10.4); MONOCYTES # (AUTO) 0.2 X 10^3 (0.0-1.0); MONOCYTES % (AUTO) 6 % (0-12); NEUTROPHILS # (AUTO) 2.7 X 10^3 (1.8-7.8); NEUTROPHILS % (AUTO) 79 % (42-75); PLATELET COUNT 211 10^3/uL (130-400); RED BLOOD COUNT 4.29 10^6/uL (4.35-5.85); RED CELL DISTRIBUTION WIDTH 14.3 % (10.0-14.5); WHITE BLOOD COUNT 3.4 10^3/uL (4.3-11.0)
[2016-11-13 09:42] LABS: ANION GAP 7 MMOL/L (5-14); BLOOD UREA NITROGEN 9 MG/DL (7-18); BUN/CREATININE RATIO 11; CALCIUM 9.3 MG/DL (8.5-10.1); CARBON DIOXIDE 30 MMOL/L (21-32); CHLORIDE 106 MMOL/L (98-107); CREATININE SERUM 0.79 MG/DL (0.60-1.30); GFR ESTIMATED > 60; GLUCOSE 133 MG/DL (70-105); POTASSIUM 3.9 MMOL/L (3.6-5.0); SODIUM 143 MMOL/L (135-145)
[2016-11-20 09:12] LABS: BASOPHILS # (AUTO) 0.1 10^3/uL (0.0-0.1); BASOPHILS % (AUTO) 1 % (0-10); EOSINOPHILS # (AUTO) 0.1 10^3/uL (0.0-0.3); EOSINOPHILS % (AUTO) 1 % (0-10); LYMPHOCYTES # (AUTO) 1.2 X 10^3 (1.0-4.0); LYMPHOCYTES % (AUTO) 11 % (12-44); MEAN CORPUSCULAR HEMOGLOBIN 30 PG (25-34); MEAN CORPUSCULAR HGB CONC 33 G/DL (32-36); MEAN CORPUSCULAR VOLUME 90 FL (80-99); MEAN PLATELET VOLUME 10.2 FL (7.4-10.4); MONOCYTES # (AUTO) 0.9 X 10^3 (0.0-1.0); MONOCYTES % (AUTO) 8 % (0-12); NEUTROPHILS # (AUTO) 8.8 X 10^3 (1.8-7.8); NEUTROPHILS % (AUTO) 80 % (42-75); PLATELET COUNT 175 10^3/uL (130-400); RED BLOOD COUNT 4.56 10^6/uL (4.35-5.85); RED CELL DISTRIBUTION WIDTH 14.9 % (10.0-14.5)
[2016-11-20 09:26] LABS: ANION GAP 8 MMOL/L (5-14); BLOOD UREA NITROGEN 6 MG/DL (7-18); BUN/CREATININE RATIO 7; CALCIUM 9.6 MG/DL (8.5-10.1); CARBON DIOXIDE 24 MMOL/L (21-32); CHLORIDE 108 MMOL/L (98-107); CREATININE SERUM 0.83 MG/DL (0.60-1.30); GFR ESTIMATED > 60; GLUCOSE 123 MG/DL (70-105); POTASSIUM 4.7 MMOL/L (3.6-5.0); SODIUM 140 MMOL/L (135-145); URIC ACID 4.6 MG/DL (2.6-7.2)
[2016-11-27 09:27] LABS: BASOPHILS # (AUTO) 0.1 10^3/uL (0.0-0.1); BASOPHILS % (AUTO) 1 % (0-10); EOSINOPHILS % (AUTO) 1 % (0-10); LYMPHOCYTES % (AUTO) 14 % (12-44); MEAN CORPUSCULAR HEMOGLOBIN 30 PG (25-34); MEAN CORPUSCULAR HGB CONC 34 G/DL (32-36); MEAN CORPUSCULAR VOLUME 89 FL (80-99); MEAN PLATELET VOLUME 9.7 FL (7.4-10.4); MONOCYTES # (AUTO) 0.8 X 10^3 (0.0-1.0); MONOCYTES % (AUTO) 10 % (0-12); NEUTROPHILS # (AUTO) 5.5 X 10^3 (1.8-7.8); NEUTROPHILS % (AUTO) 75 % (42-75); PLATELET COUNT 365 10^3/uL (130-400); RED BLOOD COUNT 4.57 10^6/uL (4.35-5.85); RED CELL DISTRIBUTION WIDTH 14.7 % (10.0-14.5); WHITE BLOOD COUNT 7.4 10^3/uL (4.3-11.0)
[2016-11-27 10:01] LABS: ANION GAP 7 MMOL/L (5-14); BLOOD UREA NITROGEN 9 MG/DL (7-18); BUN/CREATININE RATIO 10; CARBON DIOXIDE 28 MMOL/L (21-32); CHLORIDE 107 MMOL/L (98-107); CREATININE SERUM 0.86 MG/DL (0.60-1.30); GFR ESTIMATED > 60; GLUCOSE 149 MG/DL (70-105); POTASSIUM 4.8 MMOL/L (3.6-5.0); SODIUM 142 MMOL/L (135-145); URIC ACID 4.6 MG/DL (2.6-7.2)
[~2016-12-04] VITALS: Ht 170.8 cm; Wt 78.0 kg
[~2016-12-04] MED LIST changes: +ACETAMINOPHEN 325 MG TAB (TYLENOL) CANCER CTR PO PRN; +CYCLOPHOSPHAMIDE IV SCH; +DOXORUBICIN HCL IV SCH; +FAMOTIDINE 20MG/2ML IV (CANCER CTR) IV SCH; +FOSAPREPITANT 150 MG/NS 150 MG IVPB (CANCER CTR) IV PRN; +LORazepam 0.5 MG (ATIVAN) TABLET CANCER CTR PO PRN; +LORazepam INJ 2 MG/ML VIAL CANCER CTR IV SCH; +LORazepam INJ 2 MG/ML VIAL CANCER CTR ONE; +NS IV 1000 ML (CANCER CTR) IV SCH; +NS IV SCH; +PALONOSETRON 0.25 MG, DEXAMETHASONE 10 MG/NS 50 ML IVPB IV PRN; +PEGFILGRASTIM 6 MG/0.6ML NEULASTA SC SCH; +[UNRECOGNIZED DRUG - OTHER] IV SCH; +diphenhydrAMINE 25 MG TAB (BENADRYL) CANCER CENTER PO ONE; +diphenhydrAMINE 25 MG TAB (BENADRYL) CANCER CENTER PO SCH; +diphenhydrAMINE 50 MG/ML INJ (CANCER CENTER) IV PRN; +riTUXimab 500 MG, riTUXimab FOR IV INJ CONC 200 MG in NS (IVPB) CANCER CENTER ONLY 150 ML IV SCH; +vinCRIStine SULFATE 2 MG in NS (IVPB) CANCER CENTER 50 ML IV SCH
[2016-12-04 09:51] LABS: BASOPHILS % (AUTO) 0 % (0-10); EOSINOPHILS # (AUTO) 0.1 10^3/uL (0.0-0.3); EOSINOPHILS % (AUTO) 1 % (0-10); LYMPHOCYTES # (AUTO) 1.2 X 10^3 (1.0-4.0); LYMPHOCYTES % (AUTO) 18 % (12-44); MEAN CORPUSCULAR HEMOGLOBIN 31 PG (25-34); MEAN CORPUSCULAR HGB CONC 34 G/DL (32-36); MEAN CORPUSCULAR VOLUME 90 FL (80-99); MEAN PLATELET VOLUME 10.3 FL (7.4-10.4); MONOCYTES # (AUTO) 0.7 X 10^3 (0.0-1.0); MONOCYTES % (AUTO) 10 % (0-12); NEUTROPHILS # (AUTO) 4.9 X 10^3 (1.8-7.8); NEUTROPHILS % (AUTO) 70 % (42-75); PLATELET COUNT 311 10^3/uL (130-400); RED BLOOD COUNT 4.26 10^6/uL (4.35-5.85); RED CELL DISTRIBUTION WIDTH 14.9 % (10.0-14.5); WHITE BLOOD COUNT 6.9 10^3/uL (4.3-11.0)
[2016-12-04 10:44] LABS: ALANINE AMINOTRANSFERASE 29 U/L (0-55); ANION GAP 8 MMOL/L (5-14); ASPARTATE AMINO TRANSFERASE 24 U/L (5-34); BILIRUBIN,TOTAL 0.4 MG/DL (0.1-1.0); BLOOD UREA NITROGEN 9 MG/DL (7-18); BUN/CREATININE RATIO 12; CALCIUM 9.4 MG/DL (8.5-10.1); CARBON DIOXIDE 22 MMOL/L (21-32); CHLORIDE 114 MMOL/L (98-107); CREATININE SERUM 0.74 MG/DL (0.60-1.30); GFR ESTIMATED > 60; GLUCOSE 96 MG/DL (70-105); LACTATE DEHYDROGENASE 160 U/L (125-220); MAGNESIUM 1.7 MG/DL (1.8-2.4); POTASSIUM 4.2 MMOL/L (3.6-5.0); SODIUM 144 MMOL/L (135-145); TOTAL PROTEIN 6.3 G/DL (6.4-8.2); URIC ACID 3.8 MG/DL (2.6-7.2)
== END | disposition home or self-care (01) ==
LOC: ONC 09-05 08:36
PROVIDERS: ATTEND Internal Medicine Hematology & Oncology
DX: Z12.11 Encounter for screening for malignant neoplasm of colon (principal); C83.38 Diffuse large B-cell lymphoma, lymph nodes of multiple sites; I25.10 Atherosclerotic heart disease of native coronary artery without angina pectoris; I10 Essential (primary) hypertension; E11.9 Type 2 diabetes mellitus without complications; E78.5 Hyperlipidemia, unspecified; Z87.891 Personal history of nicotine dependence; Z95.5 Presence of coronary angioplasty implant and graft; Z79.84 Long term (current) use of oral hypoglycemic drugs; Z79.899 Other long term (current) drug therapy
CPT/HCPCS: 36415; 36591; 80048; 80053; 83615; 83735; 84550; 85025; 86705; 86706; 87340; 96367; 96372; 96375; 96411; 96413; 96415; 96417; 99213; 99214

== ENCOUNTER → 2017-02-24 | Outpatient (CLI) | payer MEDICARE, OTHER ==
[~2017-02-24] MED LIST changes: -ACETAMINOPHEN 325 MG TAB (TYLENOL) CANCER CTR PO PRN; +ASPI-999 PO; +BARIUM SUSPENSION 2.1% (REDI-CAT 2) 450 ML PO ONE; +CATHETER FLUSH 10 ML SYR IV PRN; -CYCLOPHOSPHAMIDE IV SCH; -DOXORUBICIN HCL IV SCH; -FAMOTIDINE 20MG/2ML IV (CANCER CTR) IV SCH; -FOSAPREPITANT 150 MG/NS 150 MG IVPB (CANCER CTR) IV PRN; +IOHEXOL 350 MG/ML 150 ML (OMNIPAQUE 350) VIAL IV ONE; -LORazepam 0.5 MG (ATIVAN) TABLET CANCER CTR PO PRN; -LORazepam INJ 2 MG/ML VIAL CANCER CTR IV SCH; -LORazepam INJ 2 MG/ML VIAL CANCER CTR ONE; +NS 100 ML (IVPB) BAG IV ONE; -NS IV 1000 ML (CANCER CTR) IV SCH; -NS IV SCH; -PALONOSETRON 0.25 MG, DEXAMETHASONE 10 MG/NS 50 ML IVPB IV PRN; -PEGFILGRASTIM 6 MG/0.6ML NEULASTA SC SCH; -[UNRECOGNIZED DRUG - OTHER] IV SCH; -diphenhydrAMINE 25 MG TAB (BENADRYL) CANCER CENTER PO ONE; -diphenhydrAMINE 25 MG TAB (BENADRYL) CANCER CENTER PO SCH; -diphenhydrAMINE 50 MG/ML INJ (CANCER CENTER) IV PRN; -riTUXimab 500 MG, riTUXimab FOR IV INJ CONC 200 MG in NS (IVPB) CANCER CENTER ONLY 150 ML IV SCH; -vinCRIStine SULFATE 2 MG in NS (IVPB) CANCER CENTER 50 ML IV SCH
--- NOTE | 2017-02-24 12:39 | Diagnostic Imaging Report ---
EXAMINATION: CT scan of the neck, chest, abdomen, and pelvis was performed with contrast and the abdomen part was performed without contrast as well. INDICATION: Diffuse large B-cell lymphoma. COMPARISON: PET CT of 11/26/2016. FINDINGS: CT NECK: There is a 5 x 6 mm hypodense lesion seen within the left side aspect of the pituitary gland which is suggestive of a microadenoma. The parotid, submandibular, and thyroid glands appear unremarkable. The paranasal sinuses are aerated. The orbits appear symmetric. No soft tissue mass or significantly enlarged lymph node is seen. The osseous structures demonstrate a sclerotic lesion in the C4 vertebral body measuring 1 x 1.1 x 0.5 cm without change from 07/18/2016, probably a bony island. CT CHEST: There is no significant consolidation, mass, or suspicious nodule. There is minimal atelectasis in the lung bases. No significantly enlarged lymph nodes or masses are seen in the mediastinum or darrel. The axilla demonstrate no significantly enlarged lymph nodes. There is no pleural or epicardial effusion. The heart size is normal. The thoracic aorta is normal in caliber. There is a 4 cm lipoma along the infraspinatus muscle on the left side. The osseous structures demonstrate a stable sclerotic focus measuring 5 mm seen in the T3 vertebral body, likely a bony island. Degenerative changes are also seen. CT ABDOMEN/PELVIS: The liver demonstrates diffuse fatty infiltration. There are hyperenhancing nodules measuring 8 mm in the right hepatic dome and 6 mm in the lateral aspect of the right hepatic lobe which appear to persist on the delayed phase images. These are stable from the 06/15/2015 exam and are likely benign such as tiny hemangiomas. The spleen is not enlarged. The adrenals, gallbladder, and pancreas appear unremarkable. The kidneys have symmetric enhancement and contrast excretion. There is no hydronephrosis. The unenhanced phase demonstrates a 2 mm nonobstructive stone in the mid left kidney. The urinary bladder appears unremarkable. The prostate is slightly heterogenous with no definite focal lesion. The colon demonstrates numerous diverticuli with no evidence of diverticulitis. The appendix is normal. The abdominal aorta is normal in caliber. No periaortic significantly enlarged lymph node is seen. The recent PET of 11/26/2016 demonstrated nonspecific hypermetabolism in the distal esophagus. There is slight fullness in this region without a definitive mass. There is a periumbilical tiny fat-containing hernia. IMPRESSION: CT NECK: 1. A 6 mm hypodense lesion in the left side of the pituitary gland is compatible with a pituitary microadenoma. 2. Stable 1.1 cm sclerotic lesion in the C4 vertebral body, probably a bony island. CT CHEST: Stable 5 mm sclerotic lesion in the T3 vertebral body, likely a bony island. CT ABDOMEN AND PELVIS: 1. Subcentimeter hyperenhancing foci in the right hepatic lobe are likely benign, stable from 2014. 2. There is a 2 mm nonobstructive stone in the mid left kidney. 3. Diverticulosis. No diverticulitis. 4. On recent PET, area of mildly increased FDG uptake in the distal esophagus demonstrates nonspecific slight fullness on this exam without discrete mass. This is favored to be related to mild inflammation or spasm. Consider endoscopic evaluation. Dictated by: Dictated on workstation # [id number]
== END ==
LOC: RAD 11:00
PROVIDERS: ATTEND Internal Medicine Hematology & Oncology
DX: C83.38 Diffuse large B-cell lymphoma, lymph nodes of multiple sites (principal); Z01.89 Encounter for other specified special examinations
CPT/HCPCS: 70491; 71260; 74178

== ENCOUNTER 2017-02-27 09:51 | Outpatient (RCR) | payer MEDICARE, OTHER ==
[2016-12-11 09:20] LABS: BASOPHILS # (AUTO) 0.1 10^3/uL (0.0-0.1); BASOPHILS % (AUTO) 1 % (0-10); EOSINOPHILS # (AUTO) 0.2 10^3/uL (0.0-0.3); EOSINOPHILS % (AUTO) 3 % (0-10); LYMPHOCYTES # (AUTO) 1.1 X 10^3 (1.0-4.0); LYMPHOCYTES % (AUTO) 14 % (12-44); MEAN CORPUSCULAR HEMOGLOBIN 31 PG (25-34); MEAN CORPUSCULAR HGB CONC 34 G/DL (32-36); MEAN CORPUSCULAR VOLUME 90 FL (80-99); MEAN PLATELET VOLUME 10.2 FL (7.4-10.4); MONOCYTES # (AUTO) 0.4 X 10^3 (0.0-1.0); MONOCYTES % (AUTO) 6 % (0-12); NEUTROPHILS # (AUTO) 5.6 X 10^3 (1.8-7.8); NEUTROPHILS % (AUTO) 77 % (42-75); PLATELET COUNT 249 10^3/uL (130-400); RED BLOOD COUNT 4.42 10^6/uL (4.35-5.85); RED CELL DISTRIBUTION WIDTH 14.3 % (10.0-14.5); WHITE BLOOD COUNT 7.3 10^3/uL (4.3-11.0)
[2016-12-11 10:07] LABS: ANION GAP 8 MMOL/L (5-14); BLOOD UREA NITROGEN 12 MG/DL (7-18); BUN/CREATININE RATIO 15; CALCIUM 10.6 MG/DL (8.5-10.1); CARBON DIOXIDE 30 MMOL/L (21-32); CHLORIDE 104 MMOL/L (98-107); GFR ESTIMATED > 60; GLUCOSE 103 MG/DL (70-105); POTASSIUM 4.3 MMOL/L (3.6-5.0); SODIUM 142 MMOL/L (135-145); URIC ACID 4.7 MG/DL (2.6-7.2)
[2016-12-18 09:50] LABS: BASOPHILS # (AUTO) 0.1 10^3/uL (0.0-0.1); BASOPHILS % (AUTO) 1 % (0-10); EOSINOPHILS # (AUTO) 0.1 10^3/uL (0.0-0.3); EOSINOPHILS % (AUTO) 1 % (0-10); LYMPHOCYTES % (AUTO) 15 % (12-44); MEAN CORPUSCULAR HEMOGLOBIN 31 PG (25-34); MEAN CORPUSCULAR HGB CONC 34 G/DL (32-36); MEAN CORPUSCULAR VOLUME 91 FL (80-99); MEAN PLATELET VOLUME 10.2 FL (7.4-10.4); MONOCYTES # (AUTO) 0.6 X 10^3 (0.0-1.0); MONOCYTES % (AUTO) 9 % (0-12); NEUTROPHILS % (AUTO) 74 % (42-75); PLATELET COUNT 176 10^3/uL (130-400); RED BLOOD COUNT 4.37 10^6/uL (4.35-5.85); RED CELL DISTRIBUTION WIDTH 14.5 % (10.0-14.5); WHITE BLOOD COUNT 6.8 10^3/uL (4.3-11.0)
[2016-12-18 10:07] LABS: ANION GAP 9 MMOL/L (5-14); BLOOD UREA NITROGEN 9 MG/DL (7-18); BUN/CREATININE RATIO 11; CALCIUM 9.6 MG/DL (8.5-10.1); CARBON DIOXIDE 23 MMOL/L (21-32); CHLORIDE 109 MMOL/L (98-107); CREATININE SERUM 0.82 MG/DL (0.60-1.30); GFR ESTIMATED > 60; GLUCOSE 139 MG/DL (70-105); SODIUM 141 MMOL/L (135-145); URIC ACID 4.6 MG/DL (2.6-7.2)
[2016-12-25 09:25] LABS: BASOPHILS % (AUTO) 1 % (0-10); EOSINOPHILS # (AUTO) 0.1 10^3/uL (0.0-0.3); EOSINOPHILS % (AUTO) 1 % (0-10); LYMPHOCYTES # (AUTO) 1.1 X 10^3 (1.0-4.0); LYMPHOCYTES % (AUTO) 12 % (12-44); MEAN CORPUSCULAR HEMOGLOBIN 31 PG (25-34); MEAN CORPUSCULAR HGB CONC 34 G/DL (32-36); MEAN CORPUSCULAR VOLUME 91 FL (80-99); MEAN PLATELET VOLUME 9.9 FL (7.4-10.4); MONOCYTES # (AUTO) 0.9 X 10^3 (0.0-1.0); MONOCYTES % (AUTO) 10 % (0-12); NEUTROPHILS # (AUTO) 6.8 X 10^3 (1.8-7.8); NEUTROPHILS % (AUTO) 77 % (42-75); PLATELET COUNT 345 10^3/uL (130-400); RED BLOOD COUNT 4.37 10^6/uL (4.35-5.85); RED CELL DISTRIBUTION WIDTH 14.4 % (10.0-14.5); WHITE BLOOD COUNT 8.8 10^3/uL (4.3-11.0)
[2016-12-25 10:01] LABS: ANION GAP 8 MMOL/L (5-14); BLOOD UREA NITROGEN 11 MG/DL (7-18); BUN/CREATININE RATIO 13; CALCIUM 10.1 MG/DL (8.5-10.1); CARBON DIOXIDE 23 MMOL/L (21-32); CHLORIDE 110 MMOL/L (98-107); CREATININE SERUM 0.82 MG/DL (0.60-1.30); GFR ESTIMATED > 60; GLUCOSE 114 MG/DL (70-105); SODIUM 141 MMOL/L (135-145); URIC ACID 4.3 MG/DL (2.6-7.2)
[2017-01-01 08:54] LABS: BASOPHILS % (AUTO) 1 % (0-10); EOSINOPHILS # (AUTO) 0.1 10^3/uL (0.0-0.3); EOSINOPHILS % (AUTO) 1 % (0-10); LYMPHOCYTES % (AUTO) 16 % (12-44); MEAN CORPUSCULAR HEMOGLOBIN 31 PG (25-34); MEAN CORPUSCULAR HGB CONC 34 G/DL (32-36); MEAN CORPUSCULAR VOLUME 92 FL (80-99); MONOCYTES # (AUTO) 0.8 X 10^3 (0.0-1.0); MONOCYTES % (AUTO) 13 % (0-12); NEUTROPHILS # (AUTO) 4.4 X 10^3 (1.8-7.8); NEUTROPHILS % (AUTO) 69 % (42-75); PLATELET COUNT 340 10^3/uL (130-400); RED BLOOD COUNT 4.31 10^6/uL (4.35-5.85); RED CELL DISTRIBUTION WIDTH 14.1 % (10.0-14.5); WHITE BLOOD COUNT 6.4 10^3/uL (4.3-11.0)
[2017-01-01 09:17] LABS: ALANINE AMINOTRANSFERASE 37 U/L (0-55); ALBUMIN 4.2 G/DL (3.2-4.5); ANION GAP 8 MMOL/L (5-14); ASPARTATE AMINO TRANSFERASE 23 U/L (5-34); BILIRUBIN,TOTAL 0.4 MG/DL (0.1-1.0); BLOOD UREA NITROGEN 11 MG/DL (7-18); BUN/CREATININE RATIO 14; CARBON DIOXIDE 24 MMOL/L (21-32); CHLORIDE 110 MMOL/L (98-107); CREATININE SERUM 0.79 MG/DL (0.60-1.30); GFR ESTIMATED > 60; GLUCOSE 105 MG/DL (70-105); LACTATE DEHYDROGENASE 184 U/L (125-220); POTASSIUM 4.2 MMOL/L (3.6-5.0); SODIUM 142 MMOL/L (135-145); TOTAL PROTEIN 6.8 G/DL (6.4-8.2); URIC ACID 4.6 MG/DL (2.6-7.2)
[2017-01-08 09:29] LABS: BASOPHILS % (AUTO) 1 % (0-10); EOSINOPHILS # (AUTO) 0.1 10^3/uL (0.0-0.3); EOSINOPHILS % (AUTO) 2 % (0-10); LYMPHOCYTES # (AUTO) 0.9 X 10^3 (1.0-4.0); LYMPHOCYTES % (AUTO) 22 % (12-44); MEAN CORPUSCULAR HEMOGLOBIN 31 PG (25-34); MEAN CORPUSCULAR HGB CONC 33 G/DL (32-36); MEAN CORPUSCULAR VOLUME 93 FL (80-99); MEAN PLATELET VOLUME 10.5 FL (7.4-10.4); MONOCYTES # (AUTO) 0.4 X 10^3 (0.0-1.0); MONOCYTES % (AUTO) 9 % (0-12); NEUTROPHILS # (AUTO) 2.9 X 10^3 (1.8-7.8); NEUTROPHILS % (AUTO) 67 % (42-75); PLATELET COUNT 185 10^3/uL (130-400); RED BLOOD COUNT 3.97 10^6/uL (4.35-5.85); RED CELL DISTRIBUTION WIDTH 13.4 % (10.0-14.5); WHITE BLOOD COUNT 4.4 10^3/uL (4.3-11.0)
[2017-01-08 09:47] LABS: ANION GAP 8 MMOL/L (5-14); BLOOD UREA NITROGEN 11 MG/DL (7-18); BUN/CREATININE RATIO 14 (0-20); CARBON DIOXIDE 27 MMOL/L (21-32); CHLORIDE 108 MMOL/L (98-107); CREATININE SERUM 0.77 MG/DL (0.60-1.30); GFR ESTIMATED > 60; GLUCOSE 106 MG/DL (70-105); POTASSIUM 4.2 MMOL/L (3.6-5.0); SODIUM 143 MMOL/L (135-145); URIC ACID 4.6 MG/DL (2.6-7.2)
[2017-01-15 09:20] LABS: BASOPHILS # (AUTO) 0.1 10^3/uL (0.0-0.1); BASOPHILS % (AUTO) 1 % (0-10); EOSINOPHILS # (AUTO) 0.1 10^3/uL (0.0-0.3); EOSINOPHILS % (AUTO) 1 % (0-10); LYMPHOCYTES # (AUTO) 0.9 X 10^3 (1.0-4.0); LYMPHOCYTES % (AUTO) 14 % (12-44); MEAN CORPUSCULAR HEMOGLOBIN 30 PG (25-34); MEAN CORPUSCULAR HGB CONC 33 G/DL (32-36); MEAN CORPUSCULAR VOLUME 92 FL (80-99); MEAN PLATELET VOLUME 10.1 FL (7.4-10.4); MONOCYTES # (AUTO) 0.7 X 10^3 (0.0-1.0); MONOCYTES % (AUTO) 10 % (0-12); NEUTROPHILS % (AUTO) 75 % (42-75); PLATELET COUNT 200 10^3/uL (130-400); RED CELL DISTRIBUTION WIDTH 13.9 % (10.0-14.5); WHITE BLOOD COUNT 6.8 10^3/uL (4.3-11.0)
[2017-01-15 09:35] LABS: ANION GAP 10 MMOL/L (5-14); BLOOD UREA NITROGEN 11 MG/DL (7-18); BUN/CREATININE RATIO 10 (0-20); CALCIUM 10.2 MG/DL (8.5-10.1); CARBON DIOXIDE 25 MMOL/L (21-32); CHLORIDE 109 MMOL/L (98-107); CREATININE SERUM 1.06 MG/DL (0.60-1.30); GFR ESTIMATED > 60; GLUCOSE 136 MG/DL (70-105); HEMOLYSIS 9 (-100-29); ICTERUS 0.5 (-100-1.9); LIPEMIA 4 (-100-49); POTASSIUM 4.4 MMOL/L (3.6-5.0); SODIUM 144 MMOL/L (135-145); URIC ACID 5.4 MG/DL (2.6-7.2)
[2017-01-22 09:58] LABS: BASOPHILS % (AUTO) 1 % (0-10); EOSINOPHILS % (AUTO) 1 % (0-10); LYMPHOCYTES # (AUTO) 1.1 X 10^3 (1.0-4.0); LYMPHOCYTES % (AUTO) 16 % (12-44); MEAN CORPUSCULAR HEMOGLOBIN 31 PG (25-34); MEAN CORPUSCULAR HGB CONC 34 G/DL (32-36); MEAN CORPUSCULAR VOLUME 91 FL (80-99); MEAN PLATELET VOLUME 9.5 FL (7.4-10.4); MONOCYTES # (AUTO) 0.7 X 10^3 (0.0-1.0); MONOCYTES % (AUTO) 11 % (0-12); NEUTROPHILS # (AUTO) 4.8 X 10^3 (1.8-7.8); NEUTROPHILS % (AUTO) 72 % (42-75); PLATELET COUNT 349 10^3/uL (130-400); RED BLOOD COUNT 4.26 10^6/uL (4.35-5.85); RED CELL DISTRIBUTION WIDTH 13.8 % (10.0-14.5); WHITE BLOOD COUNT 6.7 10^3/uL (4.3-11.0)
[2017-01-22 10:52] LABS: ANION GAP 7 MMOL/L (5-14); BLOOD UREA NITROGEN 11 MG/DL (7-18); BUN/CREATININE RATIO 13; CALCIUM 10.5 MG/DL (8.5-10.1); CARBON DIOXIDE 27 MMOL/L (21-32); CHLORIDE 109 MMOL/L (98-107); CREATININE SERUM 0.83 MG/DL (0.60-1.30); GFR ESTIMATED > 60; GLUCOSE 116 MG/DL (70-105); HEMOLYSIS 7 (-100-29); ICTERUS 0.3 (-100-1.9); LIPEMIA 26 (-100-49); POTASSIUM 4.9 MMOL/L (3.6-5.0); SODIUM 143 MMOL/L (135-145); URIC ACID 4.5 MG/DL (2.6-7.2)
[2017-01-29 09:09] LABS: BASOPHILS % (AUTO) 0 % (0-10); EOSINOPHILS # (AUTO) 0.1 10^3/uL (0.0-0.3); EOSINOPHILS % (AUTO) 1 % (0-10); LYMPHOCYTES % (AUTO) 18 % (12-44); MEAN CORPUSCULAR HEMOGLOBIN 31 PG (25-34); MEAN CORPUSCULAR HGB CONC 34 G/DL (32-36); MEAN CORPUSCULAR VOLUME 91 FL (80-99); MEAN PLATELET VOLUME 10.2 FL (7.4-10.4); MONOCYTES # (AUTO) 0.8 X 10^3 (0.0-1.0); MONOCYTES % (AUTO) 14 % (0-12); NEUTROPHILS # (AUTO) 3.8 X 10^3 (1.8-7.8); NEUTROPHILS % (AUTO) 67 % (42-75); PLATELET COUNT 323 10^3/uL (130-400); RED BLOOD COUNT 4.24 10^6/uL (4.35-5.85); RED CELL DISTRIBUTION WIDTH 13.7 % (10.0-14.5); WHITE BLOOD COUNT 5.6 10^3/uL (4.3-11.0)
[2017-01-29 09:33] LABS: ALANINE AMINOTRANSFERASE 38 U/L (0-55); ALBUMIN 4.2 GM/DL (3.2-4.5); ANION GAP 9 MMOL/L (5-14); ASPARTATE AMINO TRANSFERASE 26 U/L (5-34); BILIRUBIN,TOTAL 0.3 MG/DL (0.1-1.0); BLOOD UREA NITROGEN 10 MG/DL (7-18); BUN/CREATININE RATIO 13; CALCIUM 10.1 MG/DL (8.5-10.1); CARBON DIOXIDE 24 MMOL/L (21-32); CHLORIDE 110 MMOL/L (98-107); CREATININE SERUM 0.78 MG/DL (0.60-1.30); GFR ESTIMATED > 60; GLUCOSE 109 MG/DL (70-105); LACTATE DEHYDROGENASE 145 U/L (125-220); MAGNESIUM 1.7 MG/DL (1.8-2.4); POTASSIUM 3.9 MMOL/L (3.6-5.0); SODIUM 143 MMOL/L (135-145); TOTAL PROTEIN 6.7 GM/DL (6.4-8.2); URIC ACID 4.3 MG/DL (2.6-7.2)
[2017-02-05 09:09] LABS: BASOPHILS % (AUTO) 1 % (0-10); EOSINOPHILS # (AUTO) 0.1 10^3/uL (0.0-0.3); EOSINOPHILS % (AUTO) 1 % (0-10); LYMPHOCYTES # (AUTO) 0.9 X 10^3 (1.0-4.0); LYMPHOCYTES % (AUTO) 17 % (12-44); MEAN CORPUSCULAR HEMOGLOBIN 31 PG (25-34); MEAN CORPUSCULAR HGB CONC 34 G/DL (32-36); MEAN CORPUSCULAR VOLUME 92 FL (80-99); MEAN PLATELET VOLUME 9.8 FL (7.4-10.4); MONOCYTES # (AUTO) 0.4 X 10^3 (0.0-1.0); MONOCYTES % (AUTO) 7 % (0-12); NEUTROPHILS % (AUTO) 75 % (42-75); PLATELET COUNT 204 10^3/uL (130-400); RED BLOOD COUNT 4.17 10^6/uL (4.35-5.85); RED CELL DISTRIBUTION WIDTH 13.2 % (10.0-14.5); WHITE BLOOD COUNT 5.3 10^3/uL (4.3-11.0)
[2017-02-05 09:35] LABS: ANION GAP 10 MMOL/L (5-14); BLOOD UREA NITROGEN 14 MG/DL (7-18); BUN/CREATININE RATIO 17; CALCIUM 9.8 MG/DL (8.5-10.1); CARBON DIOXIDE 28 MMOL/L (21-32); CHLORIDE 105 MMOL/L (98-107); CREATININE SERUM 0.82 MG/DL (0.60-1.30); GFR ESTIMATED > 60; GLUCOSE 159 MG/DL (70-105); SODIUM 143 MMOL/L (135-145); URIC ACID 4.3 MG/DL (2.6-7.2)
[2017-02-12 09:28] LABS: BASOPHILS # (AUTO) 0.1 10^3/uL (0.0-0.1); BASOPHILS % (AUTO) 1 % (0-10); EOSINOPHILS # (AUTO) 0.1 10^3/uL (0.0-0.3); EOSINOPHILS % (AUTO) 2 % (0-10); LYMPHOCYTES # (AUTO) 0.9 X 10^3 (1.0-4.0); LYMPHOCYTES % (AUTO) 14 % (12-44); MEAN CORPUSCULAR HEMOGLOBIN 31 PG (25-34); MEAN CORPUSCULAR HGB CONC 34 G/DL (32-36); MEAN CORPUSCULAR VOLUME 92 FL (80-99); MEAN PLATELET VOLUME 9.8 FL (7.4-10.4); MONOCYTES # (AUTO) 0.8 X 10^3 (0.0-1.0); MONOCYTES % (AUTO) 12 % (0-12); NEUTROPHILS # (AUTO) 4.8 X 10^3 (1.8-7.8); NEUTROPHILS % (AUTO) 72 % (42-75); PLATELET COUNT 199 10^3/uL (130-400); RED BLOOD COUNT 4.27 10^6/uL (4.35-5.85); RED CELL DISTRIBUTION WIDTH 13.5 % (10.0-14.5); WHITE BLOOD COUNT 6.6 10^3/uL (4.3-11.0)
[2017-02-12 09:57] LABS: ANION GAP 8 MMOL/L (5-14); BLOOD UREA NITROGEN 11 MG/DL (7-18); BUN/CREATININE RATIO 14; CALCIUM 9.8 MG/DL (8.5-10.1); CARBON DIOXIDE 24 MMOL/L (21-32); CHLORIDE 111 MMOL/L (98-107); CREATININE SERUM 0.81 MG/DL (0.60-1.30); GFR ESTIMATED > 60; GLUCOSE 132 MG/DL (70-105); POTASSIUM 4.9 MMOL/L (3.6-5.0); SODIUM 143 MMOL/L (135-145); URIC ACID 4.9 MG/DL (2.6-7.2)
[2017-02-19 09:34] LABS: BASOPHILS % (AUTO) 0 % (0-10); EOSINOPHILS % (AUTO) 1 % (0-10); LYMPHOCYTES % (AUTO) 13 % (12-44); MEAN CORPUSCULAR HEMOGLOBIN 31 PG (25-34); MEAN CORPUSCULAR HGB CONC 34 G/DL (32-36); MEAN CORPUSCULAR VOLUME 91 FL (80-99); MEAN PLATELET VOLUME 9.7 FL (7.4-10.4); MONOCYTES # (AUTO) 0.8 X 10^3 (0.0-1.0); MONOCYTES % (AUTO) 10 % (0-12); NEUTROPHILS # (AUTO) 5.8 X 10^3 (1.8-7.8); NEUTROPHILS % (AUTO) 76 % (42-75); PLATELET COUNT 307 10^3/uL (130-400); RED CELL DISTRIBUTION WIDTH 13.5 % (10.0-14.5); WHITE BLOOD COUNT 7.5 10^3/uL (4.3-11.0)
[2017-02-19 09:59] LABS: ANION GAP 4 MMOL/L (5-14); BLOOD UREA NITROGEN 11 MG/DL (7-18); BUN/CREATININE RATIO 15; CALCIUM 9.9 MG/DL (8.5-10.1); CARBON DIOXIDE 29 MMOL/L (21-32); CHLORIDE 110 MMOL/L (98-107); CREATININE SERUM 0.75 MG/DL (0.60-1.30); GFR ESTIMATED > 60; GLUCOSE 134 MG/DL (70-105); POTASSIUM 4.9 MMOL/L (3.6-5.0); SODIUM 143 MMOL/L (135-145); URIC ACID 3.6 MG/DL (2.6-7.2)
[~2017-02-27] VITALS: Ht 170.2 cm; Wt 77.6 kg
[~2017-02-27 09:51] MED LIST changes: +ACETAMINOPHEN 325 MG TAB (TYLENOL) CANCER CTR PO PRN; -ASPI-999 PO; -BARIUM SUSPENSION 2.1% (REDI-CAT 2) 450 ML PO ONE; -CATHETER FLUSH 10 ML SYR IV PRN; +CYCLOPHOSPHAMIDE IV SCH; +DOXORUBICIN HCL IV SCH; +FAMOTIDINE 20MG/2ML IV (CANCER CTR) IV SCH; +FOSAPREPITANT 150 MG/NS 150 MG IVPB (CANCER CTR) IV PRN; -IOHEXOL 350 MG/ML 150 ML (OMNIPAQUE 350) VIAL IV ONE; +LORazepam 0.5 MG (ATIVAN) TABLET CANCER CTR PO PRN; -NS 100 ML (IVPB) BAG IV ONE; +NS IV 1000 ML (CANCER CTR) IV SCH; +NS IV SCH; +PALONOSETRON 0.25 MG, DEXAMETHASONE 10 MG/NS 50 ML IVPB IV PRN; +PEGFILGRASTIM 6 MG/0.6ML NEULASTA SC SCH; +[UNRECOGNIZED DRUG - OTHER] IV SCH; +diphenhydrAMINE 25 MG TAB (BENADRYL) CANCER CENTER PO SCH; +riTUXimab 500 MG, riTUXimab FOR IV INJ CONC 200 MG in NS (IVPB) CANCER CENTER ONLY 150 ML IV SCH; +vinCRIStine SULFATE 2 MG in NS (IVPB) CANCER CENTER 50 ML IV SCH
[2017-02-27 10:17] LABS: BASOPHILS % (AUTO) 0 % (0-10); EOSINOPHILS # (AUTO) 0.1 10^3/uL (0.0-0.3); EOSINOPHILS % (AUTO) 2 % (0-10); LYMPHOCYTES # (AUTO) 0.9 X 10^3 (1.0-4.0); LYMPHOCYTES % (AUTO) 15 % (12-44); MEAN CORPUSCULAR HEMOGLOBIN 31 PG (25-34); MEAN CORPUSCULAR HGB CONC 34 G/DL (32-36); MEAN CORPUSCULAR VOLUME 92 FL (80-99); MEAN PLATELET VOLUME 10.2 FL (7.4-10.4); MONOCYTES # (AUTO) 0.9 X 10^3 (0.0-1.0); MONOCYTES % (AUTO) 14 % (0-12); NEUTROPHILS # (AUTO) 4.3 X 10^3 (1.8-7.8); NEUTROPHILS % (AUTO) 69 % (42-75); PLATELET COUNT 344 10^3/uL (130-400); RED BLOOD COUNT 4.25 10^6/uL (4.35-5.85); RED CELL DISTRIBUTION WIDTH 13.4 % (10.0-14.5); WHITE BLOOD COUNT 6.3 10^3/uL (4.3-11.0)
[2017-02-27 10:38] LABS: ALANINE AMINOTRANSFERASE 44 U/L (0-55); ALBUMIN 4.1 GM/DL (3.2-4.5); ANION GAP 9 MMOL/L (5-14); ASPARTATE AMINO TRANSFERASE 30 U/L (5-34); BILIRUBIN,TOTAL 0.5 MG/DL (0.1-1.0); BLOOD UREA NITROGEN 11 MG/DL (7-18); BUN/CREATININE RATIO 13; CARBON DIOXIDE 25 MMOL/L (21-32); CHLORIDE 109 MMOL/L (98-107); CREATININE SERUM 0.84 MG/DL (0.60-1.30); GFR ESTIMATED > 60; GLUCOSE 144 MG/DL (70-105); LACTATE DEHYDROGENASE 182 U/L (125-220); MAGNESIUM 1.7 MG/DL (1.8-2.4); POTASSIUM 4.1 MMOL/L (3.6-5.0); SODIUM 143 MMOL/L (135-145); TOTAL PROTEIN 6.6 GM/DL (6.4-8.2); URIC ACID 4.5 MG/DL (2.6-7.2)
== END 2017-03-05 | disposition home or self-care (01) ==
LOC: ONC 09:51
PROVIDERS: ATTEND Internal Medicine Hematology & Oncology
DX: Z51.11 Encounter for antineoplastic chemotherapy (principal); C83.38 Diffuse large B-cell lymphoma, lymph nodes of multiple sites; D70.1 Agranulocytosis secondary to cancer chemotherapy; T45.1X5A Adverse effect of antineoplastic and immunosuppressive drugs, initial encounter; I25.10 Atherosclerotic heart disease of native coronary artery without angina pectoris; I10 Essential (primary) hypertension; E11.9 Type 2 diabetes mellitus without complications; E78.5 Hyperlipidemia, unspecified; Z87.891 Personal history of nicotine dependence; Z95.5 Presence of coronary angioplasty implant and graft; Z79.84 Long term (current) use of oral hypoglycemic drugs; Z79.899 Other long term (current) drug therapy
CPT/HCPCS: 36415; 36591; 80048; 80053; 83615; 83735; 84550; 85025; 96367; 96372; 96375; 96411; 96413; 96417

== ENCOUNTER → 2017-03-17 | Outpatient (CLI) | payer MEDICARE, OTHER ==
[~2017-03-17] MED LIST changes: -ACETAMINOPHEN 325 MG TAB (TYLENOL) CANCER CTR PO PRN; -CYCLOPHOSPHAMIDE IV SCH; -DOXORUBICIN HCL IV SCH; -FAMOTIDINE 20MG/2ML IV (CANCER CTR) IV SCH; -FOSAPREPITANT 150 MG/NS 150 MG IVPB (CANCER CTR) IV PRN; -LORazepam 0.5 MG (ATIVAN) TABLET CANCER CTR PO PRN; -NS IV 1000 ML (CANCER CTR) IV SCH; -NS IV SCH; -PALONOSETRON 0.25 MG, DEXAMETHASONE 10 MG/NS 50 ML IVPB IV PRN; -PEGFILGRASTIM 6 MG/0.6ML NEULASTA SC SCH; -[UNRECOGNIZED DRUG - OTHER] IV SCH; -diphenhydrAMINE 25 MG TAB (BENADRYL) CANCER CENTER PO SCH; -riTUXimab 500 MG, riTUXimab FOR IV INJ CONC 200 MG in NS (IVPB) CANCER CENTER ONLY 150 ML IV SCH; -vinCRIStine SULFATE 2 MG in NS (IVPB) CANCER CENTER 50 ML IV SCH
[2017-03-17 08:19] LABS: ALANINE AMINOTRANSFERASE 50 U/L (0-55); ALBUMIN 4.1 GM/DL (3.2-4.5); ANION GAP 9 MMOL/L (5-14); ASPARTATE AMINO TRANSFERASE 34 U/L (5-34); BILIRUBIN,TOTAL 0.5 MG/DL (0.1-1.0); BLOOD UREA NITROGEN 10 MG/DL (7-18); BUN/CREATININE RATIO 13; CALCIUM 9.4 MG/DL (8.5-10.1); CARBON DIOXIDE 22 MMOL/L (21-32); CHLORIDE 110 MMOL/L (98-107); CHOLESTEROL 108 MG/DL (< 200); CREATININE SERUM 0.75 MG/DL (0.60-1.30); DIRECT LDL 45 MG/DL (1-129); GFR ESTIMATED > 60; GLUCOSE 125 MG/DL (70-105); POTASSIUM 3.9 MMOL/L (3.6-5.0); SODIUM 141 MMOL/L (135-145); TOTAL PROTEIN 6.4 GM/DL (6.4-8.2); TRIGLYCERIDES 161 MG/DL (<150); VLDL CHOLESTEROL 32 MG/DL (5-40)
== END ==
LOC: LAB 07:35
PROVIDERS: ATTEND Nurse Practitioner Family
DX: I25.10 Atherosclerotic heart disease of native coronary artery without angina pectoris (principal); I65.23 Occlusion and stenosis of bilateral carotid arteries; E78.4 Other hyperlipidemia; I10 Essential (primary) hypertension
CPT/HCPCS: 36415; 80053; 80061

== ENCOUNTER 2017-04-10 09:06 | Outpatient (RCR) | payer MEDICARE, OTHER | END 2017-04-26 | LOC: ONC 09:06 | PROVIDERS: ATTEND Internal Medicine Hematology & Oncology | DX: C83.38 Diffuse large B-cell lymphoma, lymph nodes of multiple sites (principal); D70.1 Agranulocytosis secondary to cancer chemotherapy; T45.1X5A Adverse effect of antineoplastic and immunosuppressive drugs, initial encounter; I25.10 Atherosclerotic heart disease of native coronary artery without angina pectoris; I10 Essential (primary) hypertension; E11.9 Type 2 diabetes mellitus without complications; E78.5 Hyperlipidemia, unspecified; Z87.891 Personal history of nicotine dependence; Z95.5 Presence of coronary angioplasty implant and graft; Z79.84 Long term (current) use of oral hypoglycemic drugs; Z79.899 Other long term (current) drug therapy | CPT/HCPCS: 96523 ==

== ENCOUNTER → 2017-04-28 | Outpatient (CLI) | payer MEDICARE, OTHER ==
[2017-04-28 08:06] LABS: BASOPHILS % (AUTO) 0 % (0-10); EOSINOPHILS # (AUTO) 0.1 10^3/uL (0.0-0.3); EOSINOPHILS % (AUTO) 2 % (0-10); LYMPHOCYTES # (AUTO) 1.3 X 10^3 (1.0-4.0); LYMPHOCYTES % (AUTO) 25 % (12-44); MEAN CORPUSCULAR HEMOGLOBIN 31 PG (25-34); MEAN CORPUSCULAR HGB CONC 35 G/DL (32-36); MEAN CORPUSCULAR VOLUME 89 FL (80-99); MEAN PLATELET VOLUME 10.1 FL (7.4-10.4); MONOCYTES # (AUTO) 0.5 X 10^3 (0.0-1.0); MONOCYTES % (AUTO) 10 % (0-12); NEUTROPHILS # (AUTO) 3.2 X 10^3 (1.8-7.8); NEUTROPHILS % (AUTO) 63 % (42-75); PLATELET COUNT 244 10^3/uL (130-400); RED BLOOD COUNT 4.84 10^6/uL (4.35-5.85); RED CELL DISTRIBUTION WIDTH 12.5 % (10.0-14.5); WHITE BLOOD COUNT 5.2 10^3/uL (4.3-11.0)
[2017-04-28 08:15] LABS: ALANINE AMINOTRANSFERASE 35 U/L (0-55); ALBUMIN 4.1 GM/DL (3.2-4.5); ANION GAP 11 MMOL/L (5-14); ASPARTATE AMINO TRANSFERASE 21 U/L (5-34); BILIRUBIN,TOTAL 0.4 MG/DL (0.1-1.0); BLOOD UREA NITROGEN 12 MG/DL (7-18); BUN/CREATININE RATIO 16; CALCIUM 9.7 MG/DL (8.5-10.1); CARBON DIOXIDE 21 MMOL/L (21-32); CHLORIDE 110 MMOL/L (98-107); CHOLESTEROL 171 MG/DL (< 200); CREATININE SERUM 0.75 MG/DL (0.60-1.30); DIRECT LDL 86 MG/DL (1-129); GFR ESTIMATED > 60; GLUCOSE 133 MG/DL (70-105); MAGNESIUM 1.7 MG/DL (1.8-2.4); POTASSIUM 3.7 MMOL/L (3.6-5.0); SODIUM 142 MMOL/L (135-145); TOTAL PROTEIN 6.8 GM/DL (6.4-8.2); TRIGLYCERIDES 248 MG/DL (<150); VLDL CHOLESTEROL 50 MG/DL (5-40)
[2017-04-28 08:45] LABS: ERYTHROCYTE SEDIMENTATION RATE 6 MM/HR (0-30)
--- NOTE | 2017-04-28 13:35 | Diagnostic Imaging Report ---
PROCEDURE: US abdomen complete. TECHNIQUE: Multiple real-time grayscale images were obtained over the abdomen in various projections. INDICATION: Abdominal discomfort. FINDINGS: The visualized portions of the pancreas appear unremarkable. The liver has increased echogenicity which may correlate with fatty infiltration. There is no focal lesion identified. Hepatopetal flow in the portal vein is seen. The CBD is obscured. The gallbladder demonstrates no stones or wall thickening. The right kidney is 13.4 cm in length and the left kidney is 12.6 cm in length. There is no hydronephrosis or focal lesion. The spleen is 9.6 cm in length, normal. The aorta and IVC are largely obscured by bowel gas. No fluid collection in the abdomen is seen. Sonographic Trinidad sign is reportedly negative. IMPRESSION: Increased echogenicity of the liver may relate to fatty infiltration. Dictated by: Dictated on workstation # [id number]
== END ==
LOC: RAD 07:42
PROVIDERS: ATTEND Internal Medicine Cardiovascular Disease
DX: K76.9 Liver disease, unspecified (principal); E78.4 Other hyperlipidemia; I25.10 Atherosclerotic heart disease of native coronary artery without angina pectoris; I65.23 Occlusion and stenosis of bilateral carotid arteries; I10 Essential (primary) hypertension
CPT/HCPCS: 36415; 76700; 80053; 80061; 83735; 84443; 85025; 85652

== ENCOUNTER 2017-08-13 08:54 | Outpatient (RCR) | payer MEDICARE, OTHER ==
[~2017-08-13 08:54] MED LIST changes: -BARIUM SUSPENSION 2.1% (VANILLA SILQ) 450 ML PO ONE; -IOHEXOL 350 MG/ML 100 ML (OMNIPAQUE 350) VIAL IV ONE; -NS 100 ML (IVPB) BAG IV ONE
[2017-08-13 09:32] LABS: BASOPHILS % (AUTO) 0 % (0-10); EOSINOPHILS # (AUTO) 0.1 10^3/uL (0.0-0.3); EOSINOPHILS % (AUTO) 2 % (0-10); HEMATOCRIT 41 % (40-54); HEMOGLOBIN 14.9 G/DL (13.3-17.7); LYMPHOCYTES # (AUTO) 1.2 X 10^3 (1.0-4.0); LYMPHOCYTES % (AUTO) 23 % (12-44); MEAN CORPUSCULAR HEMOGLOBIN 32 PG (25-34); MEAN CORPUSCULAR HGB CONC 36 G/DL (32-36); MEAN CORPUSCULAR VOLUME 88 FL (80-99); MEAN PLATELET VOLUME 10.5 FL (7.4-10.4); MONOCYTES # (AUTO) 0.5 X 10^3 (0.0-1.0); MONOCYTES % (AUTO) 9 % (0-12); NEUTROPHILS # (AUTO) 3.6 X 10^3 (1.8-7.8); NEUTROPHILS % (AUTO) 66 % (42-75); PLATELET COUNT 246 10^3/uL (130-400); RED BLOOD COUNT 4.72 10^6/uL (4.35-5.85); WHITE BLOOD COUNT 5.4 10^3/uL (4.3-11.0)
[2017-08-13 09:56] LABS: ALANINE AMINOTRANSFERASE 42 U/L (0-55); ALBUMIN 4.1 GM/DL (3.2-4.5); ALKALINE PHOSPHATASE 63 U/L (40-136); BILIRUBIN,TOTAL 0.4 MG/DL (0.1-1.0); BUN/CREATININE RATIO 14; CALCIUM 9.4 MG/DL (8.5-10.1); CARBON DIOXIDE 22 MMOL/L (21-32); CHLORIDE 111 MMOL/L (98-107); CREATININE SERUM 0.78 MG/DL (0.60-1.30); GFR ESTIMATED > 60; GLUCOSE 126 MG/DL (70-105); POTASSIUM 4.1 MMOL/L (3.6-5.0); SODIUM 141 MMOL/L (135-145); TOTAL PROTEIN 6.6 GM/DL (6.4-8.2)
== END 2017-08-20 15:47 | disposition home or self-care (01) ==
LOC: ONC 08:54
PROVIDERS: ATTEND Internal Medicine Hematology & Oncology
DX: C83.38 Diffuse large B-cell lymphoma, lymph nodes of multiple sites (principal); D70.1 Agranulocytosis secondary to cancer chemotherapy; T45.1X5A Adverse effect of antineoplastic and immunosuppressive drugs, initial encounter; I25.10 Atherosclerotic heart disease of native coronary artery without angina pectoris; I10 Essential (primary) hypertension; E11.9 Type 2 diabetes mellitus without complications; E78.5 Hyperlipidemia, unspecified; Z87.891 Personal history of nicotine dependence; Z95.5 Presence of coronary angioplasty implant and graft; Z79.84 Long term (current) use of oral hypoglycemic drugs; Z79.899 Other long term (current) drug therapy
CPT/HCPCS: 36415; 36591; 80053; 83615; 85025

== ENCOUNTER → 2017-08-13 | Outpatient (CLI) | payer MEDICARE, OTHER ==
[~2017-08-13] MED LIST changes: +ACHD5005 PO; +ASPI-999 PO; +BARIUM SUSPENSION 2.1% (VANILLA SILQ) 450 ML PO ONE; -HYDR-3812 PO; +IOHEXOL 350 MG/ML 100 ML (OMNIPAQUE 350) VIAL IV ONE; +METO50TA15 PO; -METO50TA2 PO; +NS 100 ML (IVPB) BAG IV ONE; -ROSU20TA28 PO; +ROSU20TA30 PO
--- NOTE | 2017-08-13 11:24 | Diagnostic Imaging Report ---
PROCEDURE: CT chest with contrast, CT abdomen and pelvis with and without contrast. TECHNIQUE: Pre and post intravenous contrast axial imaging of the abdomen and pelvis and post contrast axial imaging of the chest were performed. INDICATION: Large cell lymphoma. FINDINGS: The previous CT neck, chest, abdomen and pelvis exam of 02/24/17 failed to show any sign of adenopathy that would suggest recurrent lymphoma. In the interval since that exam, however, a 1.5 x 1.9 cm lymph node has developed in the left axilla. There is no adenopathy in the right axilla and there is no mediastinal or hilar adenopathy noted. The heart size is within normal limits and stable when compared to the prior exam. Coronary artery calcifications are again noted. The aorta is not abnormally dilated. There is no defect within the pulmonary arteries to indicate a pulmonary embolus. There is no parenchymal lung mass identified. There is no sign of failure, pneumonia or pleural effusion. The thyroid gland appears similar to the prior study. The images through the abdomen and pelvis show that the liver is of lower density than usually seen. This does suggest fatty metamorphosis. The 6 mm enhancing lesion in the right lobe of the liver seen previously is again evident and no different. There is a second similar sized area of enhancement along the posterior aspect of the right lobe of the liver as well (image 45 of 122). This finding is also similar to the prior exam and I suspect it is benign. The liver is otherwise unremarkable. The spleen, pancreas, adrenals, gallbladder, kidneys, aorta and inferior vena cava show no sign of an acute abnormality. The 2 mm nonobstructive calculus within the left kidney seen previously is again evident and no different. The hiatal hernia noted on the prior study is again evident and somewhat more prominent. The hiatal hernia now measures 3.0 x 4.2 cm as opposed to 2.3 x 2.5 cm previously. There is no pelvic mass or free fluid collection noted. There are innumerable diverticula in the sigmoid and descending colon but there is no evidence for acute diverticulitis. The appendix was visualized and is not abnormally thickened. The urinary bladder and prostate gland are grossly unremarkable. There is no retrocrural, periaortic, retroperitoneal, iliac chain or inguinal adenopathy identified. The bone windows show no sign of a fracture or of a destructive lesion. The small sclerotic lesion in the vertebral body of T3 seen previously is again evident and no different. IMPRESSION: 1. There is no acute abnormality of the chest, abdomen or pelvis. 2. In the interval since the prior study, a 1.5 x 1.9 cm lymph node has developed in the left axilla. This is of uncertain etiology but worrisome for recurrent neoplasm. 3. The hiatal hernia seen on the prior exam does measure larger on this study. Dictated by: Dictated on workstation # [id number]
== END ==
LOC: RAD 10:01
PROVIDERS: ATTEND Internal Medicine Hematology & Oncology
DX: C83.38 Diffuse large B-cell lymphoma, lymph nodes of multiple sites (principal); R59.0 Localized enlarged lymph nodes; K44.9 Diaphragmatic hernia without obstruction or gangrene
CPT/HCPCS: 71260; 74178

== ENCOUNTER 2017-08-26 05:42 | Outpatient (CLI) | payer MEDICARE, OTHER ==
[~2017-08-26] VITALS: Ht 172.7 cm; Wt 79.4 kg
[2017-08-26] MEDS ORDERED: AMLO5TAB2 PO (12:51)
[2017-08-26] MEDS ORDERED: ASPI-586 PO (12:51)
[2017-08-26] MEDS ORDERED: METF500T4 PO (12:51)
[2017-08-26] MEDS ORDERED: ROSU5TAB PO (12:51)
== END 2017-08-26 12:53 ==
LOC: PREOP 05:42
PROVIDERS: ATTEND Surgery
DX: Z01.818 Encounter for other preprocedural examination (principal); K21.9 Gastro-esophageal reflux disease without esophagitis; R10.13 Epigastric pain

== ENCOUNTER 2017-09-01 09:34 | Day surgery (SDC) | payer MEDICARE, OTHER ==
[~2017-09-01] VITALS: Ht 172.7 cm; Wt 79.4 kg
[~2017-09-01 09:34] MED LIST changes: +ASPI-586 PO; +METF500T4 PO
[2017-09-01] MEDS ORDERED: NS IV 500 ML 500 ML IV PRN (09:39)
[2017-09-01 09:40] VITALS: BP 163/76
[2017-09-01] MEDS ORDERED: HURRICAINE EXT TUBE (BENZOCAINE) XX PRN (09:45)
--- NOTE | 2017-09-01 10:00 | History & Physicial ---
History of Present Illness History of Present Illness Reason for visit/HPI to undergo an upper endoscopy to investigate epigastric pain and symptoms of gastroesophageal reflux disease. Date of Admission 09/01/17 Date Seen by Provider: Sep 01, 2017 Time Seen by Provider: 09:59 I consulted on this patient on 09/01/17 09:59 Attending Physician Bean Peoples MD Admitting Physician Hao Gutierrez DO Consult Allergies and Home Medications Allergies Coded Allergies: sulfamethoxazole (Verified Allergy, Unknown, 10/07/08) trimethoprim (Verified Allergy, Unknown, 10/07/08) Home Medications Amlodipine Besylate 5 Mg Tablet, 5 MG PO DAILY, (Reported) Aspirin 81 Mg Tablet.dr, 81 MG PO DAILY, (Reported) Fenofibrate,Micronized 134 Mg Capsule, 134 MG PO DAILY, (Reported) Metformin HCl 500 Mg Tablet, 1,000 MG PO BID, (Reported) take 2 (500mg) tabs Metoprolol Tartrate 50 Mg Tablet, 50 MG PO BID, (Reported) Rosuvastatin Calcium 5 Mg Tablet, 5 MG PO HS, (Reported) Past Zncalrn-Qswkgb-Peoskk Hx Patient Social History Employed/Student: retired Alcohol Beverage of Choice: [employer] Former Smoker, Quit: May 20, 2004 Type Used: Cigarettes Recent Foreign Travel: No Contact w/other who traveled: No Recent Hopitalizations: No Immunizations Up To Date Tetanus Booster (TDap): Unknown Date of Pneumonia Vaccine: May 28, 2016 Date of Influenza Vaccine: Apr 25, 2017 Seasonal Allergies Seasonal Allergies: No Surgeries Yes (TURP, BACK SX) Coronary Stent Respiratory No Cardiovascular Yes (STENT x1) Coronary Artery Disease, High Cholesterol, Hypertension Neurological No Reproductive System Hx Reproductive Disorders: No Sexually Transmitted Disease: No HIV/AIDS: No Gastrointestinal No Gastroesophageal Reflux Musculoskeletal Yes Arthritis Endocrine History of Endocrine Disorders: Yes Endocrine Disorders: Diabetes, Non-Insulin dep HEENT Loss of Vision: Denies Hearing Impairment: Denies Cancer Yes Prostate, Lymphoma Type of Treatment: Surgical Intervention Psychosocial History of Psychiatric Problem: No Integumentary History of Skin or Integumenta: No Blood Transfusions History of Blood Disorders: No Adverse Reaction to a Blood Tr: No (N/A) Family Medical History Significant Family History: No Pertinent Family Hx Family Hx: Patient reports no known family medical history. Constitutional: no symptoms reported EENTM: no symptoms reported Respiratory: no symptoms reported Cardiovascular: no symptoms reported Gastrointestinal: see HPI Genitourinary: no symptoms reported Musculoskeletal: joint pain Skin: no symptoms reported Psychiatric/Neurological: No Symptoms Reported Physical Exam Vital Signs Capillary Refill : General Appearance: No Apparent Distress HEENT: Normal ENT Inspection Neck: Normal Inspection Respiratory: Lungs Clear Cardiovascular: Regular Rate, Rhythm Gastrointestinal: Non Tender, Soft Extremity: Normal Inspection Neurologic/Psychiatric: Alert, Oriented x3 Skin: Warm/Dry Assessment/Plan Assessment and Plan gentleman, who has completed treatment for non-Hodgkin's lymphoma. Epigastric pain. For upper endoscopy Problems: BEAN PEOPLES MD Sep 01, 2017 10:00 am
--- NOTE | 2017-09-01 10:01 | Conscious Sedation/ASA ---
Conscious Sedation Pre-Proced Time Reviewed: 10:00 ASA Class: 3 Airway Mallampati Classification: (jamul appropriate class) I. II. III, IV Lungs Heart ASA score ASA 1: a normal healthy patient ASA 2: a patient with a mild systemic disease (mid diabetes, controlled hypertension, obesity ASA 3: a patient with a severe systemic disease that limits activity (angina , COPD, prior Myocardial infarction) ASA 4: a patient with an incapacitating disease that is a constant threat to life (CHF, renal failure) ASA 5: a moribund patient not expected to survive 24 hrs. (ruptured aneurysm) ASA 6: a declared brain patient whose organs are being harvested. For emergent operations, add the letter E after the classification Grade 2 Sedation Plan: Discussed options with patient/fam Note The patient is an appropriate candidate to undergo the planned procedure, sedation, and anesthesia. The patient immediately re-assessed prior to indication. BEAN PEOPLES MD Sep 01, 2017 10:00 am
[2017-09-01] MEDS ORDERED: MIDAZOLAM 2 MG/2 ML (VERSED) VIAL ONE ×3 (10:18)
[2017-09-01] MEDS ORDERED: fentaNYL INJECTION 100 MCG/2 ML AMP ONE (10:18)
[2017-09-01] MEDS ORDERED: HURRICAINE EXT TUBE (BENZOCAINE) ONE (10:18)
[2017-09-01] MEDS: fentaNYL INJECTION 100 MCG/2 ML AMP IVP PRN ×2 (10:38→10:45)
[2017-09-01] MEDS: MIDAZOLAM 2 MG/2 ML (VERSED) VIAL IVP PRN ×2 (10:40→10:46)
--- NOTE | 2017-09-01 10:53 | Endo Procedure Record ---
Endo Procedure Report Date of Procedure Last Colonoscopy: Yes (unsure) Sep 01, 2017 Surgeon (s) BEAN PEOPLES MD Post Procedure/Op Diagnosis Short hiatal hernia with grade 2 esophagitis Multiple distal gastric ulcers and erosions Procedure Performed EGD with antral biopsy for H. pylori Description of Procedure Anesthesia Type: Conscious Sedation Specimen(s) collected/removed antral mucosa for H. pylori Description of the Procedure Indication for the procedure: This gentleman came in for an upper endoscopy to evaluate severe epigastric pain and symptoms of gastroesophageal reflux. Informed consent was obtained after reviewing the procedure in detail Description of procedure: He was placed in left lateral position and his vital signs were monitored. Conscious sedation was achieved using Versed and fentanyl. The gastroscope was introduced down the esophagus, past the stomach, into the proximal duodenum. Findings: Esophagus: A short hiatal hernia with grade 2 esophagitis. Stomach: Multiple distal gastric ulcers and shallow erosions. Biopsy for H. pylori was obtained Duodenum: Changes of duodenitis along the first part He tolerated the procedure well and was taken back to the nursing area in a stable condition Impression: Epigastric pain. Multiple gastric ulcers. Will treat with proton pump inhibitors. Copies To: LARRY KUO DO Copies To: ROXI DUNLAP XAVIER M MD Sep 01, 2017 10:53 am
[2017-09-01] MEDS ORDERED: PANT40TA2 PO (10:54)
--- NOTE | 2017-09-01 10:58 | Discharge Inst-Simple/Standard ---
Discharge Inst-Standard Discharge Medications New, Converted or Re-Newed RX: RX on Chart Patient Instructions/Follow Up Plan of Care/Instructions/FU: Follow-up with his primary Activity as Tolerated: Yes Discharge Diet: No Restrictions BEAN PEOPLES MD Sep 01, 2017 10:58 am
[2017-09-01 11:20] VITALS: BP 153/88
[2017-09-01 11:45] VITALS: BP 147/82
== END 2017-09-01 12:15 | disposition home or self-care (01) ==
LOC: ENDO 09:34
PROVIDERS: ATTEND Surgery
DX: K21.0 Gastro-esophageal reflux disease with esophagitis (principal); K44.9 Diaphragmatic hernia without obstruction or gangrene; K25.9 Gastric ulcer, unspecified as acute or chronic, without hemorrhage or perforation; Z88.2 Allergy status to sulfonamides; Z87.891 Personal history of nicotine dependence; I25.10 Atherosclerotic heart disease of native coronary artery without angina pectoris; E78.00 Pure hypercholesterolemia, unspecified; I10 Essential (primary) hypertension; E11.9 Type 2 diabetes mellitus without complications; Z79.899 Other long term (current) drug therapy; Z79.84 Long term (current) use of oral hypoglycemic drugs
CPT/HCPCS: 82962

== ENCOUNTER → 2017-11-15 | Outpatient (CLI) | payer MEDICARE, OTHER ==
[~2017-11-15] MED LIST changes: +GADOBUTROL 10 MMOL/10 ML (GADAVIST) VIAL IV ONE; +PANT40TA2 PO
--- NOTE | 2017-11-15 10:57 | Diagnostic Imaging Report ---
Indication: Back pain with history of lymphoma. Technique: Multiplanar and multisequence acquisitions were acquired to the thoracic spine before and after administration gadolinium. Findings: The alignment of thoracic spine is normal. The vertebral body heights are well-maintained. There is no fracture or traumatic subluxation. There is a small meningiomata of the T5 vertebral body. There was some degenerative disc disease at T7-T8. The visualized portions of the spinal cord are normal signal intensity morphology. There is no focal disc extrusion or high-grade spinal stenosis. Conus medullaris seen at L1 is normal in appearance. There is some endplate enhancement inferiorly at T7 and superiorly T8. There are no other abnormal areas of contrast enhancement. Impression: There appears to be focal degenerative disc disease at T7-T8. There is some enhancement within the endplates, however there is no fluid within the disc itself. This is likely degenerative although the possibility of osteomyelitis discitis cannot be entirely excluded. Recommend clinical correlation, followup imaging as warranted. Otherwise unremarkable MRI thoracic spine. Dictated by: Dictated on workstation # [id number]
== END ==
LOC: RAD 08:33
PROVIDERS: ATTEND Internal Medicine Hematology & Oncology
DX: M51.34 Other intervertebral disc degeneration, thoracic region (principal); Z85.72 Personal history of non-Hodgkin lymphomas; Z98.890 Other specified postprocedural states
CPT/HCPCS: 72157

== ENCOUNTER → 2018-02-05 | Outpatient (CLI) | payer MEDICARE, OTHER ==
[~2018-02-05] MED LIST changes: +BARIUM SUSPENSION 2.1% (VANILLA SILQ) 450 ML PO ONE; -GADOBUTROL 10 MMOL/10 ML (GADAVIST) VIAL IV ONE; +IOHEXOL 350 MG/ML 100 ML (OMNIPAQUE 350) VIAL IV ONE; -METF500T4 PO; +METF500T5 PO; +NS 250 ML (IVPB) BAG IV ONE; -ROSU20TA30 PO; +ROSU20TA31 PO
--- NOTE | 2018-02-05 12:16 | Diagnostic Imaging Report ---
INDICATION: B-cell lymphoma, followup. TECHNIQUE: Axial imaging through the neck, chest, abdomen and pelvis was performed after the administration of intravenous contrast. COMPARISON: Comparison is made with prior CT neck study from 02/24/[address] chest, abdomen and pelvis study from 08/13/2017. FINDINGS: CT neck: The visualized intracranial structures are unremarkable. Posterior nasopharynx, oropharynx and larynx are unremarkable. No thyroid masses are detected. Submandibular and parotid glands appear to be symmetric bilaterally. No cervical lymphadenopathy is seen. There is a left chest wall port in place. Osteosclerotic lesion within C4 vertebral body is again noted. IMPRESSION: Stable CT of the neck when compared with prior exam from 02/24/2017. CT chest: There continues to be an enlarged lymph node in the left axilla, measuring approximately 22 mm x 13 mm compared with 19 mm x 15 mm. The right axilla is unremarkable. Mediastinum and darrel are unremarkable bilaterally. No pericardial or pleural fluid is detected. Central airways are patent. The lungs are clear. IMPRESSION: Continued enlarged left axillary lymph node, slightly larger than study from 08/13/2017. No additional lymphadenopathy is identified. CT abdomen and pelvis: Generalized low density throughout the liver is again noted consistent with hepatic steatosis. Tiny enhancing lesion in the right lobe is unchanged. No new liver lesion is identified. The gallbladder is unremarkable. The pancreas and spleen are unremarkable. No adrenal mass is detected. Kidneys are unremarkable. Aorta is calcified but nonaneurysmal. No central retroperitoneal or mesenteric lymphadenopathy is seen. The small and large bowel loops are normal caliber. There is no ascites. There is sigmoid diverticulosis without evidence of acute diverticulitis. No definite inguinal or iliac lymphadenopathy is seen. Bladder is unremarkable. IMPRESSION: Stable CT of the abdomen and pelvis when compared with exam from 08/13/2017. No new region of lymphadenopathy is identified. Dictated by: Dictated on workstation # [id number]
== END ==
LOC: RAD 08:51
PROVIDERS: ATTEND Internal Medicine Hematology & Oncology
DX: C85.11 Unspecified B-cell lymphoma, lymph nodes of head, face, and neck (principal); K76.89 Other specified diseases of liver
CPT/HCPCS: 70491; 71260; 74176

== ENCOUNTER 2018-03-19 09:06 | Outpatient (RCR) | payer MEDICARE, OTHER ==
[~2018-03-19 09:06] MED LIST changes: +AMLO5TAB7 PO; -BARIUM SUSPENSION 2.1% (VANILLA SILQ) 450 ML PO ONE; -IOHEXOL 350 MG/ML 100 ML (OMNIPAQUE 350) VIAL IV ONE; +METF-397 PO; -METF500T5 PO; -NS 250 ML (IVPB) BAG IV ONE
== END 2018-03-27 | disposition home or self-care (01) ==
LOC: ONC 09:06
PROVIDERS: ATTEND Internal Medicine Hematology & Oncology
DX: C83.38 Diffuse large B-cell lymphoma, lymph nodes of multiple sites (principal); I25.10 Atherosclerotic heart disease of native coronary artery without angina pectoris; I10 Essential (primary) hypertension; E11.9 Type 2 diabetes mellitus without complications; E78.5 Hyperlipidemia, unspecified; Z87.891 Personal history of nicotine dependence; Z95.5 Presence of coronary angioplasty implant and graft; Z79.84 Long term (current) use of oral hypoglycemic drugs; Z79.899 Other long term (current) drug therapy; Z45.2 Encounter for adjustment and management of vascular access device
CPT/HCPCS: 96523

== ENCOUNTER → 2018-05-05 | Outpatient (CLI) | payer MEDICARE, OTHER ==
[2018-05-05 08:43] LABS: ALANINE AMINOTRANSFERASE 20 U/L (0-55); ALBUMIN 4.3 GM/DL (3.2-4.5); ALKALINE PHOSPHATASE 48 U/L (40-136); BILIRUBIN,TOTAL 0.7 MG/DL (0.1-1.0); BUN/CREATININE RATIO 14; CALCIUM 9.5 MG/DL (8.5-10.1); CARBON DIOXIDE 21 MMOL/L (21-32); CHLORIDE 109 MMOL/L (98-107); CHOLESTEROL 105 MG/DL (< 200); CREATININE SERUM 0.78 MG/DL (0.60-1.30); GFR ESTIMATED > 60; GLUCOSE 113 MG/DL (70-105); HDL CHOLESTEROL 36 MG/DL (40-60); POTASSIUM 3.8 MMOL/L (3.6-5.0); SODIUM 140 MMOL/L (135-145); TOTAL PROTEIN 6.9 GM/DL (6.4-8.2); TRIGLYCERIDES 148 MG/DL (<150); VLDL CHOLESTEROL 30 MG/DL (5-40)
== END ==
LOC: LAB 08:08
PROVIDERS: ATTEND Nurse Practitioner Family
DX: I25.10 Atherosclerotic heart disease of native coronary artery without angina pectoris (principal); E78.5 Hyperlipidemia, unspecified
CPT/HCPCS: 36415; 80053; 80061

== ENCOUNTER 2018-07-24 10:57 | Outpatient (RCR) | payer MEDICARE, OTHER ==
[2018-04-30 08:59] LABS: BASOPHILS % (AUTO) 0 % (0-10); EOSINOPHILS # (AUTO) 0.1 10^3/uL (0.0-0.3); EOSINOPHILS % (AUTO) 2 % (0-10); HEMATOCRIT 41 % (40-54); HEMOGLOBIN 14.4 G/DL (13.3-17.7); LYMPHOCYTES # (AUTO) 0.9 X 10^3 (1.0-4.0); LYMPHOCYTES % (AUTO) 18 % (12-44); MEAN CORPUSCULAR HEMOGLOBIN 32 PG (25-34); MEAN CORPUSCULAR HGB CONC 35 G/DL (32-36); MEAN CORPUSCULAR VOLUME 91 FL (80-99); MEAN PLATELET VOLUME 10.4 FL (7.4-10.4); MONOCYTES # (AUTO) 0.4 X 10^3 (0.0-1.0); MONOCYTES % (AUTO) 8 % (0-12); NEUTROPHILS # (AUTO) 3.7 X 10^3 (1.8-7.8); NEUTROPHILS % (AUTO) 72 % (42-75); PLATELET COUNT 218 10^3/uL (130-400); RED BLOOD COUNT 4.49 10^6/uL (4.35-5.85); WHITE BLOOD COUNT 5.2 10^3/uL (4.3-11.0)
[2018-04-30 09:16] LABS: ALANINE AMINOTRANSFERASE 29 U/L (0-55); ALBUMIN 4.2 GM/DL (3.2-4.5); ALKALINE PHOSPHATASE 60 U/L (40-136); BILIRUBIN,TOTAL 0.4 MG/DL (0.1-1.0); BUN/CREATININE RATIO 17; CALCIUM 9.5 MG/DL (8.5-10.1); CARBON DIOXIDE 20 MMOL/L (21-32); CHLORIDE 110 MMOL/L (98-107); CREATININE SERUM 0.84 MG/DL (0.60-1.30); GFR ESTIMATED > 60; GLUCOSE 200 MG/DL (70-105); POTASSIUM 3.9 MMOL/L (3.6-5.0); SODIUM 139 MMOL/L (135-145); TOTAL PROTEIN 6.6 GM/DL (6.4-8.2)
[~2018-07-24 10:57] MED LIST changes: -BARIUM SUSPENSION 2.1% (VANILLA SILQ) 450 ML PO ONE; -IOHEXOL 350 MG/ML 100 ML (OMNIPAQUE 350) VIAL IV ONE; -NS 100 ML (IVPB) BAG IV ONE; -RECEIVED CONTRAST (Hold Metformin) IV SCH
[2018-07-24 11:19] LABS: BASOPHILS % (AUTO) 0 % (0-10); EOSINOPHILS # (AUTO) 0.1 10^3/uL (0.0-0.3); EOSINOPHILS % (AUTO) 1 % (0-10); HEMATOCRIT 43 % (40-54); HEMOGLOBIN 14.6 G/DL (13.3-17.7); LYMPHOCYTES # (AUTO) 1.2 X 10^3 (1.0-4.0); LYMPHOCYTES % (AUTO) 19 % (12-44); MEAN CORPUSCULAR HEMOGLOBIN 30 PG (25-34); MEAN CORPUSCULAR HGB CONC 34 G/DL (32-36); MEAN CORPUSCULAR VOLUME 89 FL (80-99); MEAN PLATELET VOLUME 10.3 FL (7.4-10.4); MONOCYTES # (AUTO) 0.7 X 10^3 (0.0-1.0); MONOCYTES % (AUTO) 10 % (0-12); NEUTROPHILS # (AUTO) 4.6 X 10^3 (1.8-7.8); NEUTROPHILS % (AUTO) 70 % (42-75); PLATELET COUNT 224 10^3/uL (130-400); RED BLOOD COUNT 4.84 10^6/uL (4.35-5.85); RED CELL DISTRIBUTION WIDTH 13.2 % (10.0-14.5); WHITE BLOOD COUNT 6.6 10^3/uL (4.3-11.0)
[2018-07-24 11:38] LABS: ALANINE AMINOTRANSFERASE 27 U/L (0-55); ALBUMIN 4.4 GM/DL (3.2-4.5); ALKALINE PHOSPHATASE 63 U/L (40-136); BILIRUBIN,TOTAL 0.4 MG/DL (0.1-1.0); BUN/CREATININE RATIO 13; CALCIUM 9.7 MG/DL (8.5-10.1); CARBON DIOXIDE 22 MMOL/L (21-32); CHLORIDE 111 MMOL/L (98-107); CREATININE SERUM 0.87 MG/DL (0.60-1.30); GFR ESTIMATED > 60; GLUCOSE 94 MG/DL (70-105); POTASSIUM 4.1 MMOL/L (3.6-5.0); SODIUM 143 MMOL/L (135-145); TOTAL PROTEIN 6.9 GM/DL (6.4-8.2)
== END 2018-07-29 | disposition home or self-care (01) ==
LOC: ONC 10:57
PROVIDERS: ATTEND Internal Medicine Hematology & Oncology
DX: C83.38 Diffuse large B-cell lymphoma, lymph nodes of multiple sites (principal); I25.10 Atherosclerotic heart disease of native coronary artery without angina pectoris; I10 Essential (primary) hypertension; E11.9 Type 2 diabetes mellitus without complications; E78.5 Hyperlipidemia, unspecified; Z79.84 Long term (current) use of oral hypoglycemic drugs; Z79.899 Other long term (current) drug therapy; Z95.5 Presence of coronary angioplasty implant and graft; Z87.891 Personal history of nicotine dependence
CPT/HCPCS: 36591; 80053; 83615; 85025

== ENCOUNTER → 2018-07-24 | Outpatient (CLI) | payer MEDICARE, OTHER ==
[~2018-07-24] MED LIST changes: +BARIUM SUSPENSION 2.1% (VANILLA SILQ) 450 ML PO ONE; +IOHEXOL 350 MG/ML 100 ML (OMNIPAQUE 350) VIAL IV ONE; +NS 100 ML (IVPB) BAG IV ONE; +RECEIVED CONTRAST (Hold Metformin) IV SCH
--- NOTE | 2018-07-24 12:45 | Diagnostic Imaging Report ---
INDICATION: Large B-cell lymphoma, followup. TECHNIQUE: Pre- and post-contrast axial imaging through the abdomen and pelvis with post-contrast axial imaging through the neck and chest was performed. COMPARISON: Correlation is made with prior CT from 02/05/2018. CT NECK: Visualized intracranial structures remain unremarkable. Submandibular and parotid glands are unremarkable. No cervical lymphadenopathy or fluid collection is identified. Posterior nasopharynx, oropharynx, and larynx are unremarkable. No masses are seen. A sclerotic lesion within the C4 vertebral body is stable. No new sclerotic lesion is seen. IMPRESSION: Stable CT neck when compared with exam from 02/05/2018. CT CHEST: Left chest wall port remains in place. The right axilla is unremarkable. Enlarged lymph nodes in the left axilla are again seen. The marker lymph node measures 23 mm x 15 mm compared with 22 mm x 13 mm. A second lymph node slightly anterior and medial to the marker node appears to be larger measuring 18 mm x 13 mm compared with 9 mm x 7 mm. Mediastinum and darrel are unremarkable. No pericardial or pleural fluid is seen. No pulmonary infiltrates, nodules, or masses are seen. Fatty lesion in the musculature posterior to the left scapula appears stable consistent with a lipoma. IMPRESSION: There is mild increase in size of left axillary lymph nodes when compared with examination from 02/05/2018. No other significant abnormality is seen. CT ABDOMEN AND PELVIS: Generalized hepatic steatosis is again noted. A tiny enhancing lesion in the right lobe of the liver is stable. No new mass is seen. The gallbladder is unremarkable. No biliary ductal dilatation is seen. The pancreas and spleen are unremarkable. No adrenal mass is detected. The kidneys are unremarkable. Aorta is calcified but nonaneurysmal. No central retroperitoneal or mesenteric lymphadenopathy is seen. Bowel loops remain normal in caliber. The appendix is unremarkable. There is some diverticulosis of the sigmoid but no evidence of acute diverticulitis. There is no ascites. No definite iliac or inguinal lymphadenopathy is seen. The bladder is unremarkable. A sclerotic focus in the acetabular roof on the right appears stable. Tiny sclerotic lesion in the right iliac wing is stable. IMPRESSION: Overall stable CT abdomen and pelvis when compared with exam from 02/05/2018. No lymphadenopathy is identified. There is uncomplicated diverticulosis noted. Dictated by: Dictated on workstation # [id number]
== END ==
LOC: RAD 10:48
PROVIDERS: ATTEND Nurse Practitioner Adult Health
DX: C83.38 Diffuse large B-cell lymphoma, lymph nodes of multiple sites (principal); R59.0 Localized enlarged lymph nodes; K57.30 Diverticulosis of large intestine without perforation or abscess without bleeding
CPT/HCPCS: 70491; 71260; 74178

== ENCOUNTER 2018-07-29 09:06 | Outpatient (RCR) | payer MEDICARE, OTHER | END 2018-07-29 12:25 | disposition home or self-care (01) | PROVIDERS: ATTEND Internal Medicine Hematology & Oncology | DX: M51.34 Other intervertebral disc degeneration, thoracic region (principal); I10 Essential (primary) hypertension; E11.9 Type 2 diabetes mellitus without complications; Z98.1 Arthrodesis status; C83.38 Diffuse large B-cell lymphoma, lymph nodes of multiple sites; Z92.21 Personal history of antineoplastic chemotherapy ==

== ENCOUNTER 2018-08-03 06:17 | Outpatient (CLI) | payer MEDICARE, OTHER ==
[~2018-08-03] VITALS: Ht 172.7 cm; Wt 79.4 kg
== END 2018-08-03 13:35 | disposition home or self-care (01) ==
LOC: PREOP 06:17
PROVIDERS: ATTEND Surgery
DX: Z01.818 Encounter for other preprocedural examination (principal)

== ENCOUNTER 2018-08-07 07:51 | Day surgery (SDC) | payer MEDICARE, OTHER ==
[~2018-08-07] VITALS: Ht 172.7 cm; Wt 79.4 kg
--- OUTSIDE RECORDS SUMMARY | 2018-08-07 08:00 | XMS REPORT | Continuity of Care Document ---
Author Author [facility] [address] Organization [facility] [address] Address Unknown Phone Unavailable Allergies Active Description Code Type Severity Reaction Onset Reported/Identified Relationship to Patient Clinical Status Yes sulfamethoxazole [id number] Drug Allergy Unknown N/A 10/07/2008 Yes trimethoprim [id number] Drug Allergy Unknown N/A 10/07/2008 Medications There is no data. Problems Date Dx Coded Attending Type Code Diagnosis Diagnosed By ROXI DUNLAP Ot C83.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, LYMPH NOD ROXI DUNLAP Ot E11.9 TYPE 2 DIABETES MELLITUS WITHOUT COMPLIC ROXI DUNLAP Ot E78.5 HYPERLIPIDEMIA, UNSPECIFIED ROXI DUNLAP Ot I10 ESSENTIAL (PRIMARY) HYPERTENSION ROXI DUNLAP Ot I25.10 ATHSCL HEART DISEASE OF [place] CORONARY ROXI DUNLAP Ot Z79.84 FPC (CURRENT) USE OF ORAL HYPOGLYC ROXI DUNLAP Ot Z79.899 OTHER INORGANIC CHEMIST (CURRENT) DRUG THERAPY ROXI DUNLAP Ot Z87.891 PERSONAL HISTORY OF NICOTINE DEPENDENCE ROXI DUNLAP Ot Z95.5 PRESENCE OF CORONARY ANGIOPLASTY IMPLANT 06/26/1224 NATASHA LEAHY MD, Ot C83.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, LYMPH NOD 06/26/1224 NATASHA LEAHY MD, Ot E11.9 TYPE 2 DIABETES MELLITUS WITHOUT COMPLIC 06/26/1224 NATASHA LEAHY MD, Ot I10 ESSENTIAL (PRIMARY) HYPERTENSION 06/26/1224 NATASHA LEAHY MD, Ot M51.34 OTHER INTERVERTEBRAL DISC DEGENERATION, 06/26/1224 NATASHA LEAHY MD, Ot Z92.21 PERSONAL HISTORY OF ANTINEOPLASTIC CHEMO 06/26/1224 ARMOND MD, KAUR Ot Z98.1 ARTHRODESIS STATUS 06/26/1546 NATASHA LEAHY MD Ot C83.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, LYMPH NOD 06/26/1546 NATASHA LEAHY MD Ot 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 06/26/1546 NATASHA LEAHY MD Ot E11.9 TYPE 2 DIABETES MELLITUS WITHOUT COMPLIC 06/26/1546 NATASHA LEAHY MD Ot E78.5 HYPERLIPIDEMIA, UNSPECIFIED 06/26/1546 NATASHA LEAHY MD Ot I10 ESSENTIAL (PRIMARY) HYPERTENSION 06/26/1546 NATASHA LEAHY MD Ot I25.10 ATHSCL HEART DISEASE OF [place] CORONARY 06/26/1546 NATASHA LEAHY MD Ot T45.1X5A ADVERSE EFFECT OF ANTINEOPLASTIC AND IMM 06/26/1546 NATASHA LEAHY MD Ot Z79.84 INORGANIC CHEMIST (CURRENT) USE OF ORAL HYPOGLYC 06/26/1546 NATASHA LEAHY MD Ot Z79.899 OTHER FPC (CURRENT) DRUG THERAPY 06/26/1546 NATASHA LEAHY MD, Ot Z87.891 PERSONAL HISTORY OF NICOTINE DEPENDENCE 06/26/1546 NATASHA LEAHY MD Ot Z95.5 PRESENCE OF CORONARY ANGIOPLASTY IMPLANT 04/07/2010 Ot 250.00 04/07/2010 Ot 272.4 04/07/2010 Ot 401.9 04/07/2010 Ot 414.01 04/07/2010 Ot 415.19 05/30/2010 Ot 368.8 05/30/2010 Ot 414.00 05/30/2010 Ot 435.9 05/30/2010 Ot V58.61 05/30/2010 Ot V58.69 07/06/2010 Ot V45.82 07/06/2010 Ot V57.89 08/05/2010 Ot 272.4 08/05/2010 Ot 414.01 08/05/2010 Ot 415.19 11/28/2010 Ot 272.4 HYPERLIPIDEMIA NEC/NOS 11/28/2010 Ot 401.9 HYPERTENSION NOS 11/28/2010 Ot 414.01 CORONARY ATHEROSCLEROSIS OF [place] CORON 11/28/2010 Ot 415.19 OTH PULMON EMBOLISM/INFARCT 05/25/2012 Ot 211.4 BENIGN NEOPL RECTUM/ANUS 05/25/2012 Ot 250.00 DIAB DRISS WO COMPL, TYPE II OR UNSPEC TY 05/25/2012 Ot 272.0 PURE HYPERCHOLESTEROLEM 05/25/2012 Ot 401.9 HYPERTENSION NOS 05/25/2012 Ot 414.01 CORONARY ATHEROSCLEROSIS OF [place] CORON 05/25/2012 Ot 562.10 DIVERTICULOSIS COLON (W/O MENT OF HEMORR 05/25/2012 Ot V45.82 PERCUTANEOUS TRANSLUM CORON ANGIOPLASTY 05/25/2012 Ot V58.63 LONG-TERM( CURRENT)USE OF ANTIPLATELET/AN 05/25/2012 Ot V58.69 OTH MED,LT, CURRENT USE 05/25/2012 Ot V76.51 SCREEN MAL NEOP-COLON 06/05/2012 Ot 250.00 DIAB DRISS WO COMPL, TYPE II OR UNSPEC TY 06/05/2012 Ot 272.4 HYPERLIPIDEMIA NEC/NOS 06/05/2012 Ot 401.9 HYPERTENSION NOS 06/05/2012 Ot 414.01 CORONARY ATHEROSCLEROSIS OF [place] CORON 06/05/2012 Ot 562.10 DIVERTICULOSIS COLON (W/O MENT OF HEMORR 06/05/2012 Ot 998.11 HEMOR COMPLIC A PROCEDURE 06/05/2012 Ot V45.82 PERCUTANEOUS TRANSLUM CORON ANGIOPLASTY 06/05/2012 Ot V58.61 ANTICOAGULANTS,LT,CURRENT USE 06/05/2012 Ot V58.63 LONG-TERM( CURRENT)USE OF ANTIPLATELET/AN 06/05/2012 Ot V58.66 LONG-TERM ( CURRENT) USE OF ASPIRIN 06/09/2014 LARRY KUO DO [...] Ot V45.82 03/17/2015 VICTOR M FERRARI FAC, ALI FACP CCDS Ot 272.4 03/17/2015 VICTOR M FERRARI FACC, ALI FACP CCDS Ot 414.01 03/17/2015 VICTOR M FERRARI FAC, ALI FACP CCDS Ot V58.69 03/17/2015 BAIMA, APRIL L INVESTIGATIONS CHIEF Ot 272.4 03/17/2015 BAIMA, APRIL L INVESTIGATIONS CHIEF Ot 401.9 03/17/2015 BAIMA, APRIL L INVESTIGATIONS CHIEF Ot 414.01 03/17/2015 BAIMA, APRIL L INVESTIGATIONS CHIEF Ot 272.4 03/17/2015 BAIMA, APRIL L INVESTIGATIONS CHIEF Ot V58.69 03/17/2015 BAIMA, APRIL L INVESTIGATIONS CHIEF Ot 272.4 03/17/2015 BAIMA, APRIL L INVESTIGATIONS CHIEF Ot 414.00 03/17/2015 BAIMA, APRIL L INVESTIGATIONS CHIEF Ot 272.4 03/17/2015 BAIMA, APRIL L INVESTIGATIONS CHIEF Ot 414.00 03/17/2015 BAIMA, APRIL L INVESTIGATIONS CHIEF Ot 447.9 03/17/2015 LARRY KUO DO Ot 241.0 03/17/2015 BAIMAAPRIL INVESTIGATIONS CHIEF Ot 272.4 03/17/2015 BAIMAAPRIL INVESTIGATIONS CHIEF Ot 414.00 03/21/2015 BAIMAAPRIL L INVESTIGATIONS CHIEF Ot 272.4 03/24/2015 BAIMAAPRIL L INVESTIGATIONS CHIEF Ot 272.4 04/06/2015 BAIMAAPRIL INVESTIGATIONS CHIEF Ot 272.4 07/05/2015 VENKAT NELSON MD Ot C61 07/19/2015 VENKAT NELSON MD Ot C61 09/15/2015 Ot 786.50 09/15/2015 Ot [...] 09/15/2015 Ot V45.82 09/15/2015 VICTOR M FERRARI [facility], ADONAY FACP CCDS Ot 272.4 09/15/2015 VICTOR M FERRARI [facility], ADONAY FACP CCDS Ot 414.01 09/15/2015 VICTOR M FERRARI [facility], ALI FACP CCDS Ot V58.69 09/15/2015 BAIMA, APRIL L INVESTIGATIONS CHIEF Ot 272.4 09/15/2015 BAIMA, APRIL L INVESTIGATIONS CHIEF Ot 401.9 09/15/2015 BAIMA, APRIL L INVESTIGATIONS CHIEF Ot 414.01 09/15/2015 BAIMA, APRIL L INVESTIGATIONS CHIEF Ot 272.4 09/15/2015 BAIMA, APRIL L INVESTIGATIONS CHIEF Ot V58.69 09/15/2015 BAIMA, APRIL L INVESTIGATIONS CHIEF Ot 272.4 09/15/2015 BAIMA, APRIL L INVESTIGATIONS CHIEF Ot 414.00 09/15/2015 BAIMA, APRIL L INVESTIGATIONS CHIEF Ot 272.4 09/15/2015 BAIMA, APRIL L INVESTIGATIONS CHIEF Ot 414.00 09/15/2015 BAIMA, APRIL L INVESTIGATIONS CHIEF Ot 447.9 09/15/2015 LARRY KUO DO Ot 241.0 09/15/2015 BAIMA, APRIL L INVESTIGATIONS CHIEF Ot 272.4 09/15/2015 BAIMA, APRIL L INVESTIGATIONS CHIEF Ot 414.00 09/15/2015 BAIMA, APRIL L INVESTIGATIONS CHIEF Ot 272.4 09/15/2015 VENKAT NELSON MD Ot C61 10/09/2015 BAIMA, APRIL L INVESTIGATIONS CHIEF Ot E78.5 10/09/2015 BAIMA, APRIL L INVESTIGATIONS CHIEF Ot I25.10 03/15/2016 Ot 272.4 HYPERLIPIDEMIA NEC/NOS 03/15/2016 Ot 401.9 HYPERTENSION NOS 03/15/2016 Ot 414.01 CORONARY ATHEROSCLEROSIS OF [place] CORON 03/15/2016 Ot V58.69 OTH MED,LT, CURRENT USE 03/15/2016 Ot 272.4 HYPERLIPIDEMIA NEC/NOS 03/15/2016 Ot 401.9 HYPERTENSION NOS 03/15/2016 Ot 414.01 CORONARY ATHEROSCLEROSIS OF [place] CORON 03/15/2016 Ot 415.19 OTH PULMON EMBOLISM/INFARCT 03/15/2016 Ot V12.51 HX-VENOUS THROMBOSIS EMBOLISM 03/15/2016 Ot 272.4 HYPERLIPIDEMIA NEC/NOS 03/15/2016 Ot 401.9 HYPERTENSION NOS 03/15/2016 Ot 414.00 CORON ATHEROSCLER NOS TYPE VESSEL, NATIV 03/15/2016 Ot V58.69 OTH MED,LT, CURRENT USE 03/15/2016 Ot 272.4 HYPERLIPIDEMIA NEC/NOS 03/15/2016 Ot 401.9 HYPERTENSION NOS 03/15/2016 Ot 414.00 CORON ATHEROSCLER NOS TYPE VESSEL, NATIV 03/15/2016 Ot V58.69 OTH MED,LT, CURRENT USE 03/15/2016 Ot 272.4 HYPERLIPIDEMIA NEC/NOS 03/15/2016 Ot 401.9 HYPERTENSION NOS 03/15/2016 Ot V58.69 OTH MED,LT, CURRENT USE 03/15/2016 Ot V72.84 EXAM PRE- OPERATIVE NOS 03/15/2016 Ot 272.4 HYPERLIPIDEMIA NEC/NOS 03/15/2016 Ot 414.00 CORON ATHEROSCLER NOS TYPE VESSEL, NATIV 03/15/2016 Ot V58.69 OTH MED,LT, CURRENT USE 03/15/2016 Ot 241.0 NONTOX UNINODULAR GOITER 03/15/2016 Ot 240.9 GOITER NOS 03/15/2016 Ot 241.0 NONTOX UNINODULAR GOITER 03/15/2016 Ot 272.4 HYPERLIPIDEMIA NEC/NOS 03/15/2016 Ot 401.9 HYPERTENSION NOS 03/15/2016 Ot 414.00 CORON ATHEROSCLER NOS TYPE VESSEL, NATIV 03/15/2016 Ot V58.69 OTH MED,LT, CURRENT USE 03/15/2016 Ot 414.00 CORON ATHEROSCLER NOS TYPE VESSEL, NATIV 03/15/2016 Ot V45.82 PERCUTANEOUS TRANSLUM CORON ANGIOPLASTY 03/15/2016 VICTOR M FERRARI [facility], ALI FACP CCDS Ot 272.4 HYPERLIPIDEMIA NEC/NOS 03/15/2016 VICTOR M FERRARI FACC, ALI FACP CCDS Ot 414.01 CORONARY ATHEROSCLEROSIS OF [place] CORON 03/15/2016 VICTOR M FERRARI FACC, ALI FACP CCDS Ot V58.69 OTH MED,LT,CURRENT USE 03/15/2016 BAIMA, APRIL L INVESTIGATIONS CHIEF Ot 272.4 HYPERLIPIDEMIA NEC/NOS 03/15/2016 BAIMA, APRIL L INVESTIGATIONS CHIEF Ot 401.9 HYPERTENSION NOS 03/15/2016 BAIMA, APRIL L INVESTIGATIONS CHIEF Ot 414.01 CORONARY ATHEROSCLEROSIS OF [place] CORON 03/15/2016 BAIMA, APRIL L INVESTIGATIONS CHIEF Ot 272.4 HYPERLIPIDEMIA NEC/NOS 03/15/2016 BAIMA, APRIL L INVESTIGATIONS CHIEF Ot V58.69 OTH MED,LT,CURRENT USE 03/15/2016 BAIMA, APRIL L INVESTIGATIONS CHIEF Ot 272.4 HYPERLIPIDEMIA NEC/NOS 03/15/2016 BAIMA, APRIL L INVESTIGATIONS CHIEF Ot 414.00 CORON ATHEROSCLER NOS TYPE VESSEL, NATIV 03/15/2016 BAIMA, APRIL L INVESTIGATIONS CHIEF Ot 272.4 HYPERLIPIDEMIA NEC/NOS 03/15/2016 BAIMA, APRIL L INVESTIGATIONS CHIEF Ot 414.00 CORON ATHEROSCLER NOS TYPE VESSEL, NATIV 03/15/2016 BAIMA, APRIL L INVESTIGATIONS CHIEF Ot 447.9 ARTERIAL DISEASE NOS 03/15/2016 LARRY KUO DO A Ot 241.0 NONTOX UNINODULAR GOITER 03/15/2016 BAIMA, APRIL L INVESTIGATIONS CHIEF Ot 272.4 HYPERLIPIDEMIA NEC/NOS 03/15/2016 BAIMA, APRIL L INVESTIGATIONS CHIEF Ot 414.00 CORON ATHEROSCLER NOS TYPE VESSEL, NATIV 03/15/2016 BAIMA, APRIL L INVESTIGATIONS CHIEF Ot 272.4 HYPERLIPIDEMIA NEC/NOS 03/15/2016 LESLIE FERRARI, VENKAT Wiley Ot C61 MALIGNANT NEOPLASM OF PROSTATE 03/15/2016 BAIMA, APRIL L INVESTIGATIONS CHIEF Ot E78.5 HYPERLIPIDEMIA, UNSPECIFIED 03/15/2016 BAIMA, APRIL L INVESTIGATIONS CHIEF Ot I25.10 ATHSCL HEART DISEASE OF [place] CORONARY 03/15/2016 BAIMA, APRIL L INVESTIGATIONS CHIEF Ot I25.10 ATHSCL HEART DISEASE OF [place] CORONARY 03/19/2016 BAIMA, APRIL L INVESTIGATIONS CHIEF Ot E78.5 HYPERLIPIDEMIA, UNSPECIFIED 03/19/2016 BAIMA, APRIL L INVESTIGATIONS CHIEF Ot I25.10 ATHSCL HEART DISEASE OF [place] CORONARY 04/05/2016 BAIMA, APRIL L INVESTIGATIONS CHIEF Ot E78.5 HYPERLIPIDEMIA, UNSPECIFIED 04/05/2016 BAIMA, APRIL L INVESTIGATIONS CHIEF Ot I25.10 ATHSCL HEART DISEASE OF [place] CORONARY 05/07/2016 Ot 272.4 HYPERLIPIDEMIA NEC/NOS 05/07/2016 Ot 401.9 HYPERTENSION NOS 05/07/2016 Ot 414.01 CORONARY ATHEROSCLEROSIS OF [place] CORON 05/07/2016 Ot 415.19 OTH PULMON EMBOLISM/INFARCT 05/07/2016 Ot V12.51 HX-VENOUS THROMBOSIS EMBOLISM 05/07/2016 Ot 272.4 HYPERLIPIDEMIA NEC/NOS 05/07/2016 Ot 401.9 HYPERTENSION NOS 05/07/2016 Ot 414.00 CORON ATHEROSCLER NOS TYPE VESSEL, NATIV 05/07/2016 Ot V58.69 OTH MED,LT, CURRENT USE 05/07/2016 Ot 272.4 HYPERLIPIDEMIA NEC/NOS 05/07/2016 Ot 401.9 HYPERTENSION NOS 05/07/2016 Ot 414.00 CORON ATHEROSCLER NOS TYPE VESSEL, NATIV 05/07/2016 Ot V58.69 OTH MED,LT, CURRENT USE 05/07/2016 Ot 272.4 HYPERLIPIDEMIA NEC/NOS 05/07/2016 Ot 401.9 HYPERTENSION NOS 05/07/2016 Ot V58.69 OTH MED,LT, CURRENT USE 05/07/2016 Ot V72.84 EXAM PRE- OPERATIVE NOS 05/07/2016 Ot 272.4 HYPERLIPIDEMIA NEC/NOS 05/07/2016 Ot 414.00 CORON ATHEROSCLER NOS TYPE VESSEL, NATIV 05/07/2016 Ot V58.69 OTH MED,LT, CURRENT USE 05/07/2016 Ot 241.0 NONTOX UNINODULAR GOITER 05/07/2016 Ot 240.9 GOITER NOS 05/07/2016 Ot 241.0 NONTOX UNINODULAR GOITER 05/07/2016 Ot 272.4 HYPERLIPIDEMIA NEC/NOS 05/07/2016 Ot 401.9 HYPERTENSION NOS 05/07/2016 Ot 414.00 CORON ATHEROSCLER NOS TYPE VESSEL, NATIV 05/07/2016 Ot V58.69 OTH MED,LT, CURRENT USE 05/07/2016 Ot 414.00 CORON ATHEROSCLER NOS TYPE VESSEL, NATIV 05/07/2016 Ot V45.82 PERCUTANEOUS TRANSLUM CORON ANGIOPLASTY 05/07/2016 VICTOR M FERRARI [facility], ALI FACP CCDS Ot 272.4 HYPERLIPIDEMIA NEC/NOS 05/07/2016 VICTOR M FERRARI FACC, ALI FACP CCDS Ot 414.01 CORONARY ATHEROSCLEROSIS OF [place] CORON 05/07/2016 VICTOR M FERRARI [facility], ALI FACP CCDS Ot V58.69 OTH MED,LT,CURRENT USE 05/07/2016 BAIMA, APRIL L INVESTIGATIONS CHIEF Ot 272.4 HYPERLIPIDEMIA NEC/NOS 05/07/2016 BAIMA, APRIL L INVESTIGATIONS CHIEF Ot 401.9 HYPERTENSION NOS 05/07/2016 BAIMA, APRIL L INVESTIGATIONS CHIEF Ot 414.01 CORONARY ATHEROSCLEROSIS OF [place] CORON 05/07/2016 BAIMA, APRIL L INVESTIGATIONS CHIEF Ot 272.4 HYPERLIPIDEMIA NEC/NOS 05/07/2016 BAIMAAPRIL L INVESTIGATIONS CHIEF Ot V58.69 OT MED,LT,CURRENT USE 05/07/2016 BAIMA, APRIL L INVESTIGATIONS CHIEF Ot 272.4 HYPERLIPIDEMIA NEC/NOS 05/07/2016 BAIMA, APRIL L INVESTIGATIONS CHIEF Ot 414.00 CORON ATHEROSCLER NOS TYPE VESSEL, NATIV 05/07/2016 BAIMA, APRIL L INVESTIGATIONS CHIEF Ot 272.4 HYPERLIPIDEMIA NEC/NOS 05/07/2016 BAIMA, APRIL L INVESTIGATIONS CHIEF Ot 414.00 CORON ATHEROSCLER NOS TYPE VESSEL, NATIV 05/07/2016 BAIMA, APRIL L INVESTIGATIONS CHIEF Ot 447.9 ARTERIAL DISEASE NOS 05/07/2016 LARRY KUO DO A Ot 241.0 NONTOX UNINODULAR GOITER 05/07/2016 BAIMA, APRIL L INVESTIGATIONS CHIEF Ot 272.4 HYPERLIPIDEMIA NEC/NOS 05/07/2016 BAIMA, APRIL L INVESTIGATIONS CHIEF Ot 414.00 CORON ATHEROSCLER NOS TYPE VESSEL, NATIV 05/07/2016 BAIMA, APRIL L INVESTIGATIONS CHIEF Ot 272.4 HYPERLIPIDEMIA NEC/NOS 05/07/2016 LESLIE FERRARI, VENKAT Wiley Ot C61 MALIGNANT NEOPLASM OF PROSTATE 05/07/2016 BAIMA, APRIL L INVESTIGATIONS CHIEF Ot E78.5 HYPERLIPIDEMIA, UNSPECIFIED 05/07/2016 BAIMA, APRIL L INVESTIGATIONS CHIEF Ot I25.10 ATHSCL HEART DISEASE OF [place] CORONARY 05/07/2016 BAIMA, APRIL L INVESTIGATIONS CHIEF Ot E78.5 HYPERLIPIDEMIA, UNSPECIFIED 05/07/2016 BAIMA, APRIL L INVESTIGATIONS CHIEF Ot I25.10 ATHSCL HEART DISEASE OF [place] CORONARY 05/28/2016 VICTOR M FERRARI FACC, ADONAY FACP CCDS Ot E78.4 OTHER HYPERLIPIDEMIA 05/28/2016 VICTOR M FERRARI FACC, ADONAY FACP CCDS Ot I10 ESSENTIAL (PRIMARY) HYPERTENSION 05/28/2016 VICTOR M FERRARI FACC, ADONAY FACP CCDS Ot I25.10 ATHSCL HEART DISEASE OF [place] CORONARY 05/28/2016 VICTOR M FERRARI FACC, ADONAY FACP CCDS Ot I65.23 OCCLUSION AND STENOSIS OF [place]AL [place] 05/28/2016 VICTOR M FERRARI FACC, ADONAY FACP CCDS Ot Z72.0 TOBACCO USE 05/31/2016 VICTOR M FERRARI FACC, ADONAY FACP CCDS Ot E78.4 OTHER HYPERLIPIDEMIA 05/31/2016 VICTOR M FERRARI FACC, ADONAY FACP CCDS Ot I10 ESSENTIAL (PRIMARY) HYPERTENSION 05/31/2016 VICTOR M FERRARI FACC, ADONAY FACP CCDS Ot I25.10 ATHSCL HEART DISEASE OF [place] CORONARY 05/31/2016 VICTOR M FERRARI FACC, ALI FACP CCDS Ot I65.23 OCCLUSION AND STENOSIS OF [place]IL[place]AL [place] 05/31/2016 VICTOR M FERRARI FACC, ALI FACP CCDS Ot Z72.0 TOBACCO USE 07/02/2016 GELLENDER DO, LARRY Wiley Ot M25.531 PAIN IN RIGHT WRIST 07/11/2016 [facility] LARRY Wiley Ot E04.1 NONTOXIC SINGLE THYROID NODULE 07/11/2016 [facility], LARRY Wiley Ot R22.1 LOCALIZED SWELLING, MASS AND LUMP, NECK 07/12/2016 [facility], LARRY Wiley Ot E04.1 NONTOXIC SINGLE THYROID NODULE 07/12/2016 [facility], LARRY Wiley Ot R22.1 LOCALIZED SWELLING, MASS AND LUMP, NECK 07/12/2016 [facility], LARRY Wiley Ot E04.1 NONTOXIC SINGLE THYROID NODULE 07/12/2016 [facility], LARRY Wiley Ot R22.1 LOCALIZED SWELLING, MASS AND LUMP, NECK 07/18/2016 Ot 272.4 HYPERLIPIDEMIA NEC/NOS 07/18/2016 Ot 401.9 HYPERTENSION NOS 07/18/2016 Ot 414.00 CORON ATHEROSCLER NOS TYPE VESSEL, NATIV 07/18/2016 Ot V58.69 OTH MED,LT, CURRENT USE 07/18/2016 Ot 272.4 HYPERLIPIDEMIA NEC/NOS 07/18/2016 Ot 401.9 HYPERTENSION NOS 07/18/2016 Ot V58.69 OTH MED,LT, CURRENT USE 07/18/2016 Ot V72.84 EXAM PRE- OPERATIVE NOS 07/18/2016 Ot 272.4 HYPERLIPIDEMIA NEC/NOS 07/18/2016 Ot 414.00 CORON ATHEROSCLER NOS TYPE VESSEL, NATIV 07/18/2016 Ot V58.69 OTH MED,LT, CURRENT USE 07/18/2016 Ot 241.0 NONTOX UNINODULAR GOITER 07/18/2016 Ot 240.9 GOITER NOS 07/18/2016 Ot 241.0 NONTOX UNINODULAR GOITER 07/18/2016 Ot 272.4 HYPERLIPIDEMIA NEC/NOS 07/18/2016 Ot 401.9 HYPERTENSION NOS 07/18/2016 Ot 414.00 CORON ATHEROSCLER NOS TYPE VESSEL, NATIV 07/18/2016 Ot V58.69 OTH MED,LT, CURRENT USE 07/18/2016 Ot 414.00 CORON ATHEROSCLER NOS TYPE VESSEL, NATIV 07/18/2016 Ot V45.82 PERCUTANEOUS TRANSLUM CORON ANGIOPLASTY 07/18/2016 VICTOR M FERRARI FACC, ADONAY [facility] CCDS Ot 272.4 HYPERLIPIDEMIA NEC/NOS 07/18/2016 VICTOR M FERRARI FACC, ALI FACP CCDS Ot 414.01 CORONARY ATHEROSCLEROSIS OF [place] CORON 07/18/2016 VICTOR M FERRARI FACC, ALI [facility] CCDS Ot V58.69 OTH MED,LT,CURRENT USE 07/18/2016 BAIMA, APRIL L INVESTIGATIONS CHIEF Ot 272.4 HYPERLIPIDEMIA NEC/NOS 07/18/2016 BAIMA, APRIL L INVESTIGATIONS CHIEF Ot 401.9 HYPERTENSION NOS 07/18/2016 BAIMA, APRIL L INVESTIGATIONS CHIEF Ot 414.01 CORONARY ATHEROSCLEROSIS OF [place] CORON 07/18/2016 BAIMA, APRIL L INVESTIGATIONS CHIEF Ot 272.4 HYPERLIPIDEMIA NEC/NOS 07/18/2016 BAIMA, APRIL L INVESTIGATIONS CHIEF Ot V58.69 OTH MED,LT,CURRENT USE 07/18/2016 BAIMA, APRIL L INVESTIGATIONS CHIEF Ot 272.4 HYPERLIPIDEMIA NEC/NOS 07/18/2016 BAIMA, APRIL L INVESTIGATIONS CHIEF Ot 414.00 CORON ATHEROSCLER NOS TYPE VESSEL, NATIV 07/18/2016 BAIMA, APRIL L INVESTIGATIONS CHIEF Ot 272.4 HYPERLIPIDEMIA NEC/NOS 07/18/2016 BAIMA, APRIL L INVESTIGATIONS CHIEF Ot 414.00 CORON ATHEROSCLER NOS TYPE VESSEL, NATIV 07/18/2016 BAIMA, APRIL L INVESTIGATIONS CHIEF Ot 447.9 ARTERIAL DISEASE NOS 07/18/2016 LARRY KUO DO A Ot 241.0 NONTOX UNINODULAR GOITER 07/18/2016 BAIMA, APRIL L INVESTIGATIONS CHIEF Ot 272.4 HYPERLIPIDEMIA NEC/NOS 07/18/2016 BAIMA, APRIL L INVESTIGATIONS CHIEF Ot 414.00 CORON ATHEROSCLER NOS TYPE VESSEL, NATIV 07/18/2016 BAIMA, APRIL L INVESTIGATIONS CHIEF Ot 272.4 HYPERLIPIDEMIA NEC/NOS 07/18/2016 VENKAT NELSON MD Ot C61 MALIGNANT NEOPLASM OF PROSTATE 07/18/2016 BAIMA, APRIL L INVESTIGATIONS CHIEF Ot E78.5 HYPERLIPIDEMIA, UNSPECIFIED 07/18/2016 APRIL BARRON INVESTIGATIONS CHIEF Ot I25.10 ATHSCL HEART DISEASE OF [place] CORONARY 07/18/2016 APRIL BARRON INVESTIGATIONS CHIEF Ot E78.5 HYPERLIPIDEMIA, UNSPECIFIED 07/18/2016 APRIL BARRON INVESTIGATIONS CHIEF Ot I25.10 ATHSCL HEART DISEASE OF [place] CORONARY 07/18/2016 VICTOR M FERRARI FAC, ALI FACP CCDS Ot E78.4 OTHER HYPERLIPIDEMIA 07/18/2016 VICTOR M FERRARI FAC, ALI FACP CCDS Ot I10 ESSENTIAL (PRIMARY) HYPERTENSION 07/18/2016 VICTOR M FERRARI FAC, ALI FACP CCDS Ot I25.10 ATHSCL HEART DISEASE OF [place] CORONARY 07/18/2016 VICTOR M FERRARI [facility], ALI FACP CCDS Ot I65.23 OCCLUSION AND STENOSIS OF BILATERAL [place] 07/18/2016 VICTOR M FERRARI [facility], ALI FACP CCDS Ot Z72.0 TOBACCO USE 07/18/2016 LARRY KUO DO Ot M25.531 PAIN IN RIGHT WRIST 07/18/2016 LARRY KUO DO Ot E04.1 NONTOXIC SINGLE THYROID NODULE 07/18/2016 LARRY KUO DO Ot R22.1 LOCALIZED SWELLING, MASS AND LUMP, NECK 07/18/2016 LARRY KUO DO Ot M89.9 DISORDER OF BONE, UNSPECIFIED 07/18/2016 SHARONDER LARRY CARTER Ot R22.1 LOCALIZED SWELLING, MASS AND LUMP, NECK 07/18/2016 LARRY KUO DO Ot R59.0 LOCALIZED ENLARGED LYMPH NODES 07/19/2016 LARRY KUO DO Ot M89.9 DISORDER OF BONE, UNSPECIFIED 07/19/2016 GELLENDER LARRY CARTER Ot R22.1 LOCALIZED SWELLING, MASS AND LUMP, NECK 07/19/2016 GELLENDER DOLARRY Ot R59.0 LOCALIZED ENLARGED LYMPH NODES 07/25/2016 LARRY KUO DO Ot M89.9 DISORDER OF BONE, UNSPECIFIED 07/25/2016 SHARONDER LARRY CARTER Ot R22.1 LOCALIZED SWELLING, MASS AND LUMP, NECK 07/25/2016 ARLENLENDER DOLARRY Ot R59.0 LOCALIZED ENLARGED LYMPH NODES 07/25/2016 LARRY KUO DO Ot M89.9 DISORDER OF BONE, UNSPECIFIED 07/25/2016 [...] SINGLE THYROID NODULE 08/01/2016 GELLENDER DO, LARRY Wiley Ot R22.1 LOCALIZED SWELLING, MASS AND LUMP, NECK 08/06/2016 GELLENDER DO, LARRY Wiley Ot E04.1 NONTOXIC SINGLE THYROID NODULE 08/06/2016 GELLENDER DO, LARRY Wiley Ot R22.1 LOCALIZED SWELLING, MASS AND LUMP, NECK 08/09/2016 GELLENDER DO, LARRY Wiley Ot M89.9 DISORDER OF BONE, UNSPECIFIED 08/09/2016 GELLENDER DO, LARRY Wiley Ot R22.1 LOCALIZED SWELLING, MASS AND LUMP, NECK 08/09/2016 GELLENDER DO, LARRY Wiley Ot R59.0 LOCALIZED ENLARGED LYMPH NODES 08/14/2016 GELLENDER DO, LARRY Wiley Ot M89.9 DISORDER OF BONE, UNSPECIFIED 08/14/2016 GELLENDER DO, LARRY Saurabh Ot R59.0 LOCALIZED ENLARGED LYMPH NODES 08/14/2016 GELLENDER DO, LARRY Wiley Ot M89.9 DISORDER OF BONE, UNSPECIFIED 08/14/2016 GELLENDER DO, LARRY Wiley Ot R59.0 LOCALIZED ENLARGED LYMPH NODES 08/15/2016 GELLENDER DO, LARRY Wiley Ot R22.1 LOCALIZED SWELLING, MASS AND LUMP, NECK 08/15/2016 RICHELLE FERRARI, BEAN Love Ot R59.0 LOCALIZED ENLARGED LYMPH NODES 08/15/2016 RICHELLE FERRARI, BEAN Love Ot Z01.818 ENCOUNTER FOR OTHER PREPROCEDURAL EXAMIN 08/15/2016 RICHELLE FERRARI, BEAN Love Ot Z11.2 ENCOUNTER FOR SCREENING FOR OTHER BACTER 08/15/2016 ARLENLENDER DO, LARRY Wiley Ot M89.9 DISORDER OF BONE, UNSPECIFIED 08/15/2016 GELLENDER DO, LARRY Wiley Ot R22.1 LOCALIZED SWELLING, MASS AND LUMP, NECK 08/15/2016 LARRY KUO DO Ot R59.0 LOCALIZED ENLARGED LYMPH NODES 08/16/2016 RICHELLE FERRARI, BEAN Love Ot R59.0 LOCALIZED ENLARGED LYMPH NODES 08/16/2016 RICHELLE FERRARI, BEAN Love Ot Z01.818 ENCOUNTER FOR OTHER PREPROCEDURAL EXAMIN 08/16/2016 BEAN PEOPLES MD Ot Z11.2 ENCOUNTER FOR SCREENING FOR OTHER BACTER 08/19/2016 LARRY KUO DO Ot M89.9 DISORDER OF BONE, UNSPECIFIED 08/19/2016 LARRY KUO DO Ot R59.0 LOCALIZED ENLARGED LYMPH NODES 08/21/2016 RICHELLE FERRARI, BEAN Love Ot E11.9 TYPE 2 DIABETES MELLITUS WITHOUT COMPLIC 08/21/2016 RICHELLE FERRARI, BEAN Love Ot E78.5 HYPERLIPIDEMIA, UNSPECIFIED 08/21/2016 BEAN PEOPLES MD Ot I10 ESSENTIAL (PRIMARY) HYPERTENSION 08/21/2016 RICHELLE FERRARI, BEAN Love Ot I25.10 ATHSCL HEART DISEASE OF [place] CORONARY 08/21/2016 BEAN PEOPLES MD Ot R59.0 LOCALIZED ENLARGED LYMPH NODES 08/21/2016 RICHELLE FERRARI, BEAN Love Ot Z87.891 PERSONAL HISTORY OF NICOTINE DEPENDENCE 08/22/2016 BEAN PEOPLES MD Ot E11.9 TYPE 2 DIABETES MELLITUS WITHOUT COMPLIC 08/22/2016 BEAN PEOPLES MD Ot E78.5 HYPERLIPIDEMIA, UNSPECIFIED 08/22/2016 BEAN PEOPLES MD Ot I10 ESSENTIAL (PRIMARY) HYPERTENSION 08/22/2016 BEAN PEOPLES MD Ot I25.10 ATHSCL HEART DISEASE OF [place] CORONARY 08/22/2016 BEAN PEOPLES MD Ot R59.0 LOCALIZED ENLARGED LYMPH NODES 08/22/2016 BEAN PEOPLES MD Ot Z87.891 PERSONAL HISTORY OF NICOTINE DEPENDENCE 08/24/2016 OLGA LIDIA GARCIA SVP RESEARCH AND STRATEGIC ANALYSIS Ot E11.9 TYPE 2 DIABETES MELLITUS WITHOUT COMPLIC 08/24/2016 OLGA LIDIA GARCIA SVP RESEARCH AND STRATEGIC ANALYSIS Ot I10 ESSENTIAL (PRIMARY) HYPERTENSION 08/24/2016 OLGA LIDIA GARCIA SVP RESEARCH AND STRATEGIC ANALYSIS Ot R22.42 LOCALIZED SWELLING, MASS AND LUMP, LEFT 08/24/2016 OLGA LIDIA GARCIA APRN Ot R59.0 LOCALIZED ENLARGED LYMPH NODES 08/24/2016 OLGA LIDIA GARCIA SVP RESEARCH AND STRATEGIC ANALYSIS Ot Z79.02 INORGANIC CHEMIST (CURRENT) USE OF ANTITHROMBOTI 08/24/2016 OLGA LIDIA GARCIA SVP RESEARCH AND STRATEGIC ANALYSIS Ot Z79.84 FPC (CURRENT) USE OF ORAL HYPOGLYC 08/24/2016 OLGA LIDIA GARCIA SVP RESEARCH AND STRATEGIC ANALYSIS Ot Z79.899 OTHER INORGANIC CHEMIST (CURRENT) DRUG THERAPY 08/26/2016 OLGA LIDIA GARCIA APRN Ot E11.9 TYPE 2 DIABETES MELLITUS WITHOUT COMPLIC 08/26/2016 OLGA LIDIA GARCIA SVP RESEARCH AND STRATEGIC ANALYSIS Ot I10 ESSENTIAL (PRIMARY) HYPERTENSION 08/26/2016 OLGA LIDIA GARCIA SVP RESEARCH AND STRATEGIC ANALYSIS Ot R22.42 LOCALIZED SWELLING, MASS AND LUMP, LEFT 08/26/2016 OLGA LIDIA GARCIA APRN Ot R59.0 LOCALIZED ENLARGED LYMPH NODES 08/26/2016 OLGA LIDIA GARCIA SVP RESEARCH AND STRATEGIC ANALYSIS Ot Z79.02 FPC (CURRENT) USE OF ANTITHROMBOTI 08/26/2016 OLGA LIDIA GARCIA APRN Ot Z79.84 FPC (CURRENT) USE OF ORAL HYPOGLYC 08/26/2016 OLGA LIDIA GARCIA APRN Ot Z79.899 OTHER FPC (CURRENT) DRUG THERAPY 09/04/2016 RICHELLE FERRARI, BEAN Love Ot C85.90 NON-HODGKIN LYMPHOMA, UNSPECIFIED, UNSPE 09/04/2016 RICHELLE FERRARI, BEAN Love Ot Z01.818 ENCOUNTER FOR OTHER PREPROCEDURAL EXAMIN 09/05/2016 RICHELLE FERRARI, BEAN Love Ot E11.9 TYPE 2 DIABETES MELLITUS WITHOUT COMPLIC 09/05/2016 RICHELLE FERRARI, BEAN Love Ot E78.5 HYPERLIPIDEMIA, UNSPECIFIED 09/05/2016 RICHELLE FERRARI, BEAN Love Ot I10 ESSENTIAL (PRIMARY) HYPERTENSION 09/05/2016 RICHELLE FERRARI, BEAN Love Ot I25.10 ATHSCL HEART DISEASE OF [place] CORONARY 09/05/2016 RICHELLE FERRARI, BEAN Love Ot R59.0 LOCALIZED ENLARGED LYMPH NODES 09/05/2016 RICHELLE FERRARI, BEAN Love Ot Z87.891 PERSONAL HISTORY OF NICOTINE DEPENDENCE 09/05/2016 Ot 272.4 HYPERLIPIDEMIA NEC/NOS 09/05/2016 Ot 401.9 HYPERTENSION NOS 09/05/2016 Ot 414.00 CORON ATHEROSCLER NOS TYPE VESSEL, NATIV 09/05/2016 Ot V58.69 OTH MED,LT, CURRENT USE 09/05/2016 Ot 272.4 HYPERLIPIDEMIA NEC/NOS 09/05/2016 Ot 401.9 HYPERTENSION NOS 09/05/2016 Ot V58.69 OTH MED,LT, CURRENT USE 09/05/2016 Ot V72.84 EXAM PRE- OPERATIVE NOS 09/05/2016 Ot 272.4 HYPERLIPIDEMIA NEC/NOS 09/05/2016 Ot 414.00 CORON ATHEROSCLER NOS TYPE VESSEL, NATIV 09/05/2016 Ot V58.69 OTH MED,LT, CURRENT USE 09/05/2016 Ot 241.0 NONTOX UNINODULAR GOITER 09/05/2016 Ot 240.9 GOITER NOS 09/05/2016 Ot 241.0 NONTOX UNINODULAR GOITER 09/05/2016 Ot 272.4 HYPERLIPIDEMIA NEC/NOS 09/05/2016 Ot 401.9 HYPERTENSION NOS 09/05/2016 Ot 414.00 CORON ATHEROSCLER NOS TYPE VESSEL, NATIV 09/05/2016 Ot V58.69 OTH MED,LT, CURRENT USE 09/05/2016 Ot 414.00 CORON ATHEROSCLER NOS TYPE VESSEL, NATIV 09/05/2016 Ot V45.82 PERCUTANEOUS TRANSLUM CORON ANGIOPLASTY 09/05/2016 VICTOR M FERRARI FACC, ALI FACP CCDS Ot 272.4 HYPERLIPIDEMIA NEC/NOS 09/05/2016 VICTOR M FERRARI FACC, ALI FACP CCDS Ot 414.01 CORONARY ATHEROSCLEROSIS OF [place] CORON 09/05/2016 VICTOR M FERRARI FACC, ALI FACShekhar CCDS Ot V58.69 OTH MED,LT,CURRENT USE 09/05/2016 BAIMA, APRIL L INVESTIGATIONS CHIEF Ot 272.4 HYPERLIPIDEMIA NEC/NOS 09/05/2016 BAIMA, APRIL L INVESTIGATIONS CHIEF Ot 401.9 HYPERTENSION NOS 09/05/2016 BAIMA, APRIL L INVESTIGATIONS CHIEF Ot 414.01 CORONARY ATHEROSCLEROSIS OF [place] CORON 09/05/2016 BAIMA, APRIL L INVESTIGATIONS CHIEF Ot 272.4 HYPERLIPIDEMIA NEC/NOS 09/05/2016 BAIMA, APRIL L INVESTIGATIONS CHIEF Ot V58.69 OTH MED,LT,CURRENT USE 09/05/2016 BAIMA, APRIL L INVESTIGATIONS CHIEF Ot 272.4 HYPERLIPIDEMIA NEC/NOS 09/05/2016 BAIMA, APRIL L INVESTIGATIONS CHIEF Ot 414.00 CORON ATHEROSCLER NOS TYPE VESSEL, NATIV 09/05/2016 BAIMA, APRIL L INVESTIGATIONS CHIEF Ot 272.4 HYPERLIPIDEMIA NEC/NOS 09/05/2016 BAIMA, APRIL L INVESTIGATIONS CHIEF Ot 414.00 CORON ATHEROSCLER NOS TYPE VESSEL, NATIV 09/05/2016 KASANDRAAPRIL US INVESTIGATIONS CHIEF Ot 447.9 ARTERIAL DISEASE NOS 09/05/2016 LARRY KUO DO Ot 241.0 NONTOX UNINODULAR GOITER 09/05/2016 KASANDRAAPRIL US L INVESTIGATIONS CHIEF Ot 272.4 HYPERLIPIDEMIA NEC/NOS 09/05/2016 BAIMAGEN APRIL L INVESTIGATIONS CHIEF Ot 414.00 CORON ATHEROSCLER NOS TYPE VESSEL, NATIV 09/05/2016 BAIAPRIL US L INVESTIGATIONS CHIEF Ot 272.4 HYPERLIPIDEMIA NEC/NOS 09/05/2016 LESLIE FERRARI, VENKAT Wiley Ot C61 MALIGNANT NEOPLASM OF PROSTATE 09/05/2016 BAIAPRIL US L INVESTIGATIONS CHIEF Ot E78.5 HYPERLIPIDEMIA, UNSPECIFIED 09/05/2016 BAIMAGEN APRIL L INVESTIGATIONS CHIEF Ot I25.10 ATHSCL HEART DISEASE OF [place] CORONARY 09/05/2016 BAIAPRIL US L INVESTIGATIONS CHIEF Ot E78.5 HYPERLIPIDEMIA, UNSPECIFIED 09/05/2016 BAIMA APRIL L INVESTIGATIONS CHIEF Ot I25.10 ATHSCL HEART DISEASE OF [place] CORONARY 09/05/2016 VICTOR M FERRARI FAC, ALI FACP CCDS Ot E78.4 OTHER HYPERLIPIDEMIA 09/05/2016 VICTOR M FERRARI FACC, ALI FACP CCDS Ot I10 ESSENTIAL (PRIMARY) HYPERTENSION 09/05/2016 VICTOR M FERRARI FAC, ALI FACP CCDS Ot I25.10 ATHSCL HEART DISEASE OF [place] CORONARY 09/05/2016 VICTOR M FERRARI FACC, ALI FACP CCDS Ot I65.23 OCCLUSION AND STENOSIS OF BIL[place]AL [place] 09/05/2016 VICTOR M GREGORY, ALI FACP CCDS Ot Z72.0 TOBACCO USE 09/05/2016 LARRY KUO DO Ot M25.531 PAIN IN RIGHT WRIST 09/05/2016 LARRY KUO DO Ot E04.1 NONTOXIC SINGLE THYROID NODULE 09/05/2016 LARRY KUO DO Ot R22.1 LOCALIZED SWELLING, MASS AND LUMP, NECK 09/05/2016 LARRY KUO DO Ot M89.9 DISORDER OF BONE, UNSPECIFIED 09/05/2016 LARRY KUO DO Ot R22.1 LOCALIZED SWELLING, MASS AND LUMP, NECK 09/05/2016 LARRY KUO DO Ot R59.0 LOCALIZED ENLARGED LYMPH NODES 09/05/2016 LARRY KUO DO Ot M89.9 DISORDER OF BONE, UNSPECIFIED 09/05/2016 GELLENDER DO, LARRY Wiley Ot R59.0 LOCALIZED ENLARGED LYMPH NODES 09/05/2016 GELLENDER DO, LARRY Wiley Ot R22.1 LOCALIZED SWELLING, MASS AND LUMP, NECK 09/05/2016 GELLENDER DO, LARRY Wiley Ot C83.30 DIFFUSE LARGE B-CELL LYMPHOMA, UNSPECIFI 09/05/2016 GELLENDER DOLARRY Ot J35.9 CHRONIC DISEASE OF TONSILS AND ADENOIDS, 09/05/2016 GELLENDER DO, LARRY Wiley Ot R59.0 LOCALIZED ENLARGED LYMPH NODES 09/05/2016 GELLENDER DO, LARRY Wiley Ot C83.30 DIFFUSE LARGE B-CELL LYMPHOMA, UNSPECIFI 09/05/2016 GELLENDER DO, LARRY Wiley Ot J35.9 CHRONIC DISEASE OF TONSILS AND ADENOIDS, 09/05/2016 GELLENDER DO, LARRY Wiley Ot R59.0 [...] 09/05/2016 RICHELLE FERRARI, BEAN Love Ot Z79.84 INORGANIC CHEMIST (CURRENT) USE OF ORAL HYPOGLYC 09/09/2016 ROXI [...] DUNLAP Ot I25.10 ATHSCL HEART DISEASE OF [place] CORONARY 09/11/2016 ROXI DUNLAP Ot Z79.84 INORGANIC CHEMIST (CURRENT) USE OF ORAL HYPOGLYC 09/11/2016 ROXI DUNLAP Ot Z79.899 OTHER FPC (CURRENT) DRUG THERAPY 09/11/2016 ROXI DUNLAP Ot Z87.891 PERSONAL HISTORY OF NICOTINE DEPENDENCE 09/11/2016 ROXI DUNLAP Ot Z95.5 PRESENCE OF CORONARY ANGIOPLASTY IMPLANT 09/17/2016 GELLENDER DO, LARRY A Ot M89.9 DISORDER OF BONE, UNSPECIFIED 09/17/2016 GELLENDER DO, LARRY A Ot R59.0 LOCALIZED ENLARGED LYMPH NODES 09/17/2016 GELLENDER DO, LARRY A Ot R22.1 LOCALIZED SWELLING, MASS AND LUMP, NECK 09/17/2016 GELLENDER DO, LARRY A Ot M89.9 DISORDER OF BONE, UNSPECIFIED 09/17/2016 GELLENDER DO, LARRY A Ot R59.0 LOCALIZED ENLARGED LYMPH NODES 09/17/2016 GELLENDER DO, LARRY A Ot R22.1 LOCALIZED SWELLING, MASS AND LUMP, NECK 09/19/2016 BAIMA, APRIL L INVESTIGATIONS CHIEF Ot E78.5 HYPERLIPIDEMIA, UNSPECIFIED 09/19/2016 BAIMA, APRIL L INVESTIGATIONS CHIEF Ot I10 ESSENTIAL (PRIMARY) HYPERTENSION 09/19/2016 BAIMA, APRIL L INVESTIGATIONS CHIEF Ot I25.10 ATHSCL HEART DISEASE OF [place] CORONARY 09/19/2016 BEATRICE APRIL L INVESTIGATIONS CHIEF Ot I77.9 DISORDER OF ARTERIES AND ARTERIOLES, UNS 09/19/2016 KASANDRAMA, APRIL L INVESTIGATIONS CHIEF Ot E78.5 HYPERLIPIDEMIA, UNSPECIFIED 09/19/2016 BAIMA, APRIL L INVESTIGATIONS CHIEF Ot I10 ESSENTIAL (PRIMARY) HYPERTENSION 09/19/2016 BAIMA, APRIL L INVESTIGATIONS CHIEF Ot I25.10 ATHSCL HEART DISEASE OF [place] CORONARY 09/19/2016 BAIMA, APRIL L INVESTIGATIONS CHIEF Ot I77.9 DISORDER OF ARTERIES AND ARTERIOLES, UNS 09/19/2016 BAIMA, APRIL L INVESTIGATIONS CHIEF Ot E78.5 HYPERLIPIDEMIA, UNSPECIFIED 09/19/2016 BAIMA, APRIL L INVESTIGATIONS CHIEF Ot I10 ESSENTIAL (PRIMARY) HYPERTENSION 09/19/2016 BAIMA, APRIL L INVESTIGATIONS CHIEF Ot I25.10 ATHSCL HEART DISEASE OF [place] CORONARY 09/19/2016 APRIL BARRON INVESTIGATIONS CHIEF Ot I77.9 DISORDER OF ARTERIES AND ARTERIOLES, UNS 09/19/2016 BAIAPRIL SU INVESTIGATIONS CHIEF Ot E78.5 HYPERLIPIDEMIA, UNSPECIFIED 09/19/2016 BAIMAAPRIL L INVESTIGATIONS CHIEF Ot I10 ESSENTIAL (PRIMARY) HYPERTENSION 09/19/2016 APRIL BARRON L INVESTIGATIONS CHIEF Ot I25.10 ATHSCL HEART DISEASE OF [place] CORONARY 09/19/2016 BAIAPRIL US L INVESTIGATIONS CHIEF Ot I77.9 DISORDER OF ARTERIES AND ARTERIOLES, UNS 09/19/2016 BAIAPRIL US INVESTIGATIONS CHIEF Ot E78.5 HYPERLIPIDEMIA, UNSPECIFIED 09/19/2016 BAIMA, APRIL L INVESTIGATIONS CHIEF Ot I10 ESSENTIAL (PRIMARY) HYPERTENSION 09/19/2016 BAIAPRIL US L INVESTIGATIONS CHIEF Ot I25.10 ATHSCL HEART DISEASE OF [place] CORONARY 09/19/2016 APRIL BARRON INVESTIGATIONS CHIEF Ot I77.9 DISORDER OF ARTERIES AND ARTERIOLES, UNS 09/24/2016 RICHELLE FERRARI, BEAN Love Ot E11.9 TYPE 2 DIABETES MELLITUS WITHOUT COMPLIC 09/24/2016 RICHELLE FERRARI, BEAN Love Ot E78.5 HYPERLIPIDEMIA, UNSPECIFIED 09/24/2016 RICHELLE FERRARI, BEAN Love Ot I10 ESSENTIAL (PRIMARY) HYPERTENSION 09/24/2016 RICHELLE FERRARI, BEAN Love Ot I25.10 ATHSCL HEART DISEASE OF [place] CORONARY 09/24/2016 RICHELLE FERRARI, BEAN Love Ot [...] LOCALIZED ENLARGED LYMPH NODES 10/09/2016 APRIL BARRON INVESTIGATIONS CHIEF Ot E78.5 HYPERLIPIDEMIA, UNSPECIFIED 10/09/2016 APRIL BARRON INVESTIGATIONS CHIEF Ot I10 ESSENTIAL (PRIMARY) HYPERTENSION 10/09/2016 APRIL BARRON INVESTIGATIONS CHIEF Ot I25.10 ATHSCL HEART DISEASE OF [place] CORONARY 10/09/2016 APRIL BARRON INVESTIGATIONS CHIEF Ot I77.9 DISORDER OF ARTERIES AND ARTERIOLES, UNS 10/21/2016 ROXI DUNLAP Ot C83.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, LYMPH NOD 10/21/2016 ROXI DUNLAP Ot E11.9 TYPE 2 DIABETES MELLITUS WITHOUT COMPLIC 10/21/2016 ROXI DUNLAP Ot E78.5 HYPERLIPIDEMIA, UNSPECIFIED 10/21/2016 ROXI DUNLAP Ot I10 ESSENTIAL (PRIMARY) HYPERTENSION 10/21/2016 ROXI DUNLAP Ot I25.10 ATHSCL HEART DISEASE OF [place] CORONARY 10/21/2016 ROXI DUNLAP Ot Z79.84 INORGANIC CHEMIST (CURRENT) USE OF ORAL HYPOGLYC 10/21/2016 ROXI DUNLAP Ot Z79.899 OTHER FPC (CURRENT) DRUG THERAPY 10/21/2016 ROXI DUNLAP Ot Z87.891 PERSONAL HISTORY OF NICOTINE DEPENDENCE 10/21/2016 ROXI DUNLAP Ot Z95.5 PRESENCE OF CORONARY ANGIOPLASTY IMPLANT 10/23/2016 ROXI DUNLAP Ot C83.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, LYMPH NOD 10/23/2016 ROXI DUNLAP Ot E11.9 TYPE 2 DIABETES MELLITUS WITHOUT COMPLIC 10/23/2016 ROXI DUNLAP Ot E78.5 HYPERLIPIDEMIA, UNSPECIFIED 10/23/2016 ROXI DUNLAP Ot I10 ESSENTIAL (PRIMARY) HYPERTENSION 10/23/2016 ROXI DUNLAP Ot I25.10 ATHSCL HEART DISEASE OF [place] CORONARY 10/23/2016 GERMÁNROXI Ot Z79.84 INORGANIC CHEMIST (CURRENT) USE OF ORAL HYPOGLYC 10/23/2016 ROXI DUNLAP Ot Z79.899 OTHER FPC (CURRENT) DRUG THERAPY 10/23/2016 GERMÁNROXI Ot Z87.891 PERSONAL HISTORY OF NICOTINE DEPENDENCE 10/23/2016 ROXI DUNLAP Ot Z95.5 PRESENCE OF CORONARY ANGIOPLASTY IMPLANT 10/24/2016 [facility] LARRY Wiley Ot A41.9 SEPSIS, UNSPECIFIED ORGANISM 10/24/2016 GELLENDER DO, LARRY Wiley Ot C85.90 NON-[place]GKIN LYMPHOMA, UNSPECIFIED, UNSPE 10/24/2016 GELLENDER DO, LARRY Wiley Ot 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 10/24/2016 [facility] DOLARRY Ot D70.9 NEUTROPENIA, UNSPECIFIED 10/24/2016 GELLENDER DO, LARRY Wiley Ot E11.9 TYPE 2 DIABETES MELLITUS WITHOUT COMPLIC 10/24/2016 [facility], LARRY Wiley Ot E78.00 PURE HYPERCHOLESTEROLEMIA, UNSPECIFIED 10/24/2016 GELLENDER DOLARRY Ot I10 ESSENTIAL (PRIMARY) HYPERTENSION 10/24/2016 [facility] Ot I25.10 ATHSCL HEART DISEASE OF [place] CORONARY 10/24/2016 [facility], LARRY Wiley Ot K04.7 PERIAPICAL ABSCESS WITHOUT SINUS 10/24/2016 [facility] DOLARRY Ot M19.91 PRIMARY OSTEOARTHRITIS, UNSPECIFIED SITE 10/24/2016 [facility] CARTER Ot R50.81 FEVER PRESENTING WITH CONDITIONS CLASSIF 10/24/2016 GELLENDER DOLARRY Ot T45.1X5A ADVERSE EFFECT OF ANTINEOPLASTIC AND IMM 10/24/2016 GELLENDER DOLARRY Ot Z79.84 INORGANIC CHEMIST (CURRENT) USE OF ORAL HYPOGLYC 10/24/2016 [facility] LARRY Ot Z85.46 PERSONAL HISTORY OF MALIGNANT NEOPLASM O 10/24/2016 GELLENDER DOLARRY Ot Z87.891 PERSONAL HISTORY OF NICOTINE DEPENDENCE 10/24/2016 [facility] DOL[facility] Ot Z92.21 PERSONAL HISTORY OF ANTINEOPLASTIC CHEMO 10/24/2016 [facility] Ot Z95.5 PRESENCE OF CORONARY ANGIOPLASTY IMPLANT 11/06/2016 ROXI DUNLAP N Ot C83.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, LYMPH NOD 11/06/2016 ROXI DUNLAP N Ot E11.9 TYPE 2 DIABETES MELLITUS WITHOUT COMPLIC 11/06/2016 ROXI DUNLAP N Ot E78.5 HYPERLIPIDEMIA, UNSPECIFIED 11/06/2016 ROXI DUNLAP N Ot I10 ESSENTIAL (PRIMARY) HYPERTENSION 11/06/2016 GERMÁN VLADIMIRSEBASTIEN N Ot I25.10 ATHSCL HEART DISEASE OF [place] CORONARY 11/06/2016 GERMÁN ROXI N Ot Z79.84 INORGANIC CHEMIST (CURRENT) USE OF ORAL HYPOGLYC 11/06/2016 GERMÁN ROXI N Ot Z79.899 OTHER INORGANIC CHEMIST (CURRENT) DRUG THERAPY 11/06/2016 GERMÁN, ROXI N Ot Z87.891 PERSONAL HISTORY OF NICOTINE DEPENDENCE 11/06/2016 ROXI DUNLAP N Ot Z95.5 PRESENCE OF CORONARY ANGIOPLASTY IMPLANT 11/27/2016 JUSTIN ARCEO INVESTIGATIONS CHIEF Ot C83.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, LYMPH NOD 11/27/2016 JUSTIN ARCEO INVESTIGATIONS CHIEF Ot C83.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, LYMPH NOD 12/02/2016 JUSTIN ARCEO S INVESTIGATIONS CHIEF Ot C83.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, LYMPH NOD 12/04/2016 GERMÁN ROXI N Ot C83.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, LYMPH NOD 12/04/2016 ROXI DUNLAP N Ot E11.9 TYPE 2 DIABETES MELLITUS WITHOUT COMPLIC 12/04/2016 GERMÁN VLADIMIRSEBASTIEN N Ot E78.5 HYPERLIPIDEMIA, UNSPECIFIED 12/04/2016 GERMÁN ROXI N Ot I10 ESSENTIAL (PRIMARY) HYPERTENSION 12/04/2016 GERMÁN VLADIMIRSEBASTIEN N Ot I25.10 ATHSCL HEART DISEASE OF [place] CORONARY 12/04/2016 GERMÁN ROXI N Ot Z12.11 ENCOUNTER FOR SCREENING FOR MALIGNANT NE 12/04/2016 GERMÁN, ROXI N Ot Z79.84 INORGANIC CHEMIST (CURRENT) USE OF ORAL HYPOGLYC 12/04/2016 GERMÁN ROXI N Ot Z79.899 OTHER INORGANIC CHEMIST (CURRENT) DRUG THERAPY 12/04/2016 GERMÁN, ROXI N Ot Z87.891 PERSONAL HISTORY OF NICOTINE DEPENDENCE 12/04/2016 ROXI DUNLAP N Ot Z95.5 PRESENCE OF CORONARY ANGIOPLASTY IMPLANT 12/04/2016 ROXI DUNLAP N Ot C83.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, LYMPH NOD 12/04/2016 ROXI DUNLAP N Ot E11.9 TYPE 2 DIABETES MELLITUS WITHOUT COMPLIC 12/04/2016 ROXI DUNLAP N Ot E78.5 HYPERLIPIDEMIA, UNSPECIFIED 12/04/2016 ROXI DUNLAP N Ot I10 ESSENTIAL (PRIMARY) HYPERTENSION 12/04/2016 ROXI DUNLAP N Ot I25.10 ATHSCL HEART DISEASE OF [place] CORONARY 12/04/2016 ROXI DUNLAP N Ot Z79.84 FPC (CURRENT) USE OF ORAL HYPOGLYC 12/04/2016 ROXI DUNLAP N Ot Z79.899 OTHER INORGANIC CHEMIST (CURRENT) DRUG THERAPY 12/04/2016 ROXI DUNLAP N Ot Z87.891 PERSONAL HISTORY OF NICOTINE DEPENDENCE 12/04/2016 ROXI DUNLAP N Ot Z95.5 PRESENCE OF CORONARY ANGIOPLASTY IMPLANT 12/06/2016 ROXI DUNLAP N Ot C83.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, LYMPH NOD 12/06/2016 ROXI DUNLAP N Ot E11.9 TYPE 2 DIABETES MELLITUS WITHOUT COMPLIC 12/06/2016 ROXI DUNLAP N Ot E78.5 HYPERLIPIDEMIA, UNSPECIFIED 12/06/2016 ROXI DUNLAP N Ot I10 ESSENTIAL (PRIMARY) HYPERTENSION 12/06/2016 ROXI DUNLAP N Ot I25.10 ATHSCL HEART DISEASE OF [place] CORONARY 12/06/2016 ROXI DUNLAP N Ot Z79.84 INORGANIC CHEMIST (CURRENT) USE OF ORAL HYPOGLYC 12/06/2016 ROXI DUNLAP N Ot Z79.899 OTHER FPC (CURRENT) DRUG THERAPY 12/06/2016 ROXI DUNLAP N Ot Z87.891 PERSONAL HISTORY OF NICOTINE DEPENDENCE 12/06/2016 ROXI DUNLAP N Ot Z95.5 PRESENCE OF CORONARY ANGIOPLASTY IMPLANT 12/18/2016 JUSTIN ARCEO INVESTIGATIONS CHIEF Ot C83.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, LYMPH NOD 12/24/2016 JUSTIN ARCEO INVESTIGATIONS CHIEF Ot C83.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, LYMPH NOD 01/16/2017 GERMÁNROXI N Ot C83.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, LYMPH NOD 01/16/2017 GERMÁN BOBAN N Ot E11.9 TYPE 2 DIABETES MELLITUS WITHOUT COMPLIC 01/16/2017 GERMÁN BOBAN N Ot E78.5 HYPERLIPIDEMIA, UNSPECIFIED 01/16/2017 GERMÁN, BOBAN N Ot I10 ESSENTIAL (PRIMARY) HYPERTENSION 01/16/2017 GERMÁN, BOBAN N Ot I25.10 ATHSCL HEART DISEASE OF [place] CORONARY 01/16/2017 GERMÁN BOBAN N Ot Z79.84 FPC (CURRENT) USE OF ORAL HYPOGLYC 01/16/2017 GERMÁN BOBAN N Ot Z79.899 OTHER FPC (CURRENT) DRUG THERAPY 01/16/2017 GERMÁN, BOBAN N Ot Z87.891 PERSONAL HISTORY OF NICOTINE DEPENDENCE 01/16/2017 GERMÁN BOBAN N Ot Z95.5 PRESENCE OF CORONARY ANGIOPLASTY IMPLANT 01/23/2017 GERMÁN BOBAN N Ot C83.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, LYMPH NOD 01/23/2017 GERMÁN, BOBAN N Ot E11.9 TYPE 2 DIABETES MELLITUS WITHOUT COMPLIC 01/23/2017 GERMÁN BOBAN N Ot E78.5 HYPERLIPIDEMIA, UNSPECIFIED 01/23/2017 GERMÁN, BOBAN N Ot I10 ESSENTIAL (PRIMARY) HYPERTENSION 01/23/2017 GERMÁN, BOBAN N Ot I25.10 ATHSCL HEART DISEASE OF [place] CORONARY 01/23/2017 GERMÁN BOBAN N Ot Z79.84 FPC (CURRENT) USE OF ORAL HYPOGLYC 01/23/2017 GERMÁN BOBAN N Ot Z79.899 OTHER INORGANIC CHEMIST (CURRENT) DRUG THERAPY 01/23/2017 GERMÁN VLADIMIRAN N Ot Z87.891 PERSONAL HISTORY OF NICOTINE DEPENDENCE 01/23/2017 GERMÁNVLADIMIRAN N Ot Z95.5 PRESENCE OF CORONARY ANGIOPLASTY IMPLANT 01/29/2017 GERMÁN BOBAN N Ot C83.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, LYMPH NOD 01/29/2017 GERMÁN BOBAN N Ot E11.9 TYPE 2 DIABETES MELLITUS WITHOUT COMPLIC 01/29/2017 GERMÁN, BOBAN N Ot E78.5 HYPERLIPIDEMIA, UNSPECIFIED 01/29/2017 GERMÁN, BOBAN N Ot I10 ESSENTIAL (PRIMARY) HYPERTENSION 01/29/2017 GERMÁN, BOBAN N Ot I25.10 ATHSCL HEART DISEASE OF [place] CORONARY 01/29/2017 GERMÁN BOBAN N Ot Z79.84 FPC (CURRENT) USE OF ORAL HYPOGLYC 01/29/2017 GERMÁNVLADIMIR LEACHAN N Ot Z79.899 OTHER FPC (CURRENT) DRUG THERAPY 01/29/2017 GERMÁN, VLADIMIRAN N Ot Z87.891 PERSONAL HISTORY OF NICOTINE DEPENDENCE 01/29/2017 GERMÁN, VLADIMIRAN N Ot Z95.5 PRESENCE OF CORONARY ANGIOPLASTY IMPLANT 01/30/2017 GERMÁN VLADIMIRAN N Ot C83.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, LYMPH NOD 01/30/2017 GERMÁN BOBAN N Ot E11.9 TYPE 2 DIABETES MELLITUS WITHOUT COMPLIC 01/30/2017 GERMÁN BOBAN N Ot E78.5 HYPERLIPIDEMIA, UNSPECIFIED 01/30/2017 GERMÁN, BOBAN N Ot I10 ESSENTIAL (PRIMARY) HYPERTENSION 01/30/2017 GERMÁN BOBAN N Ot I25.10 ATHSCL HEART DISEASE OF [place] CORONARY 01/30/2017 GERMÁN VLADIMIRAN N Ot Z79.84 INORGANIC CHEMIST (CURRENT) USE OF ORAL HYPOGLYC 01/30/2017 GERMÁN VLADIMIRAN N Ot Z79.899 OTHER INORGANIC CHEMIST (CURRENT) DRUG THERAPY 01/30/2017 GERMÁNVLADIMIR LEACHAN N Ot Z87.891 PERSONAL HISTORY OF NICOTINE DEPENDENCE 01/30/2017 GERMÁN VLADIMIRAN N Ot Z95.5 PRESENCE OF CORONARY ANGIOPLASTY IMPLANT 01/30/2017 GERMÁN, VLADIMIRAN N Ot C83.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, LYMPH NOD 01/30/2017 GERMÁN BOBAN N Ot E11.9 TYPE 2 DIABETES MELLITUS WITHOUT COMPLIC 01/30/2017 GERMÁN VLADIMIRAN N Ot E78.5 HYPERLIPIDEMIA, UNSPECIFIED 01/30/2017 GERMÁN BOBAN N Ot I10 ESSENTIAL (PRIMARY) HYPERTENSION 01/30/2017 GERMÁN BOBAN N Ot I25.10 ATHSCL HEART DISEASE OF [place] CORONARY 01/30/2017 GERMÁNVLADIMIRAN N Ot Z79.84 INORGANIC CHEMIST (CURRENT) USE OF ORAL HYPOGLYC 01/30/2017 GERMÁN BOBAN N Ot Z79.899 OTHER FPC (CURRENT) DRUG THERAPY 01/30/2017 GERMÁN BOBAN N Ot Z87.891 PERSONAL HISTORY OF NICOTINE DEPENDENCE 01/30/2017 GERMÁNVLADIMIRAN N Ot Z95.5 PRESENCE OF CORONARY ANGIOPLASTY IMPLANT 02/03/2017 GERMÁN, BOBAN N Ot C83.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, LYMPH NOD 02/03/2017 GERMÁN ROXI Jay Ot 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 02/03/2017 GERMÁNROXI Ot E11.9 TYPE 2 DIABETES MELLITUS WITHOUT COMPLIC 02/03/2017 GERMÁNROXI Ot E78.5 HYPERLIPIDEMIA, UNSPECIFIED 02/03/2017 GERMÁNROXI Ot I10 ESSENTIAL (PRIMARY) HYPERTENSION 02/03/2017 GERMÁNROXI Ot I25.10 ATHSCL HEART DISEASE OF [place] CORONARY 02/03/2017 GERMÁNROXI Ot T45.1X5A ADVERSE EFFECT OF ANTINEOPLASTIC AND IMM 02/03/2017 ROXI DUNLAP Ot Z51.11 ENCOUNTER FOR ANTINEOPLASTIC CHEMOTHERAP 02/03/2017 ROXI DUNLAP Ot Z79.84 INORGANIC CHEMIST (CURRENT) USE OF ORAL HYPOGLYC 02/03/2017 ROXI DUNLAP Ot Z79.899 OTHER FPC (CURRENT) DRUG THERAPY 02/03/2017 ROXI DUNLAP Ot Z87.891 PERSONAL HISTORY OF NICOTINE DEPENDENCE 02/03/2017 ROXI DUNLAP Ot Z95.5 PRESENCE OF CORONARY ANGIOPLASTY IMPLANT 02/25/2017 GERMÁNROXI Ot C83.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, LYMPH NOD 02/25/2017 ROXI DUNLAP Ot Z01.89 ENCOUNTER FOR OTHER SPECIFIED SPECIAL EX 02/25/2017 GERMÁNROXI N Ot C83.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, LYMPH NOD 02/25/2017 ROXI DUNLAP N Ot Z01.89 ENCOUNTER FOR OTHER SPECIFIED SPECIAL EX 03/02/2017 GERMÁNROXI Ot C83.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, LYMPH NOD 03/02/2017 GERMÁNROXI N Ot Z01.89 ENCOUNTER FOR OTHER SPECIFIED SPECIAL EX 03/05/2017 GERMÁNROXI Ot C83.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, LYMPH NOD 03/05/2017 GERMÁNROXI Ot 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891 PERSONAL HISTORY OF NICOTINE DEPENDENCE 03/05/2017 ROXI DUNLAP Ot Z95.5 PRESENCE OF CORONARY ANGIOPLASTY IMPLANT 03/25/2017 GERMÁNROXI Ot C83.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, LYMPH NOD 03/25/2017 ROXI DUNLAP Ot Z01.89 ENCOUNTER FOR OTHER SPECIFIED SPECIAL EX 03/25/2017 GERMÁNROXI Ot C83.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, LYMPH NOD 03/25/2017 GERMÁNROXI Ot Z01.89 ENCOUNTER FOR OTHER SPECIFIED SPECIAL EX 04/08/2017 APRIL BARRON INVESTIGATIONS CHIEF Ot E78.4 OTHER HYPERLIPIDEMIA 04/08/2017 APRIL BARRON INVESTIGATIONS CHIEF Ot I10 ESSENTIAL (PRIMARY) HYPERTENSION 04/08/2017 APRIL BARRON INVESTIGATIONS CHIEF Ot I25.10 ATHSCL HEART DISEASE OF [place] CORONARY 04/08/2017 APRIL BARRON INVESTIGATIONS CHIEF Ot I65.23 OCCLUSION AND STENOSIS OF [place]AL [place] 04/26/2017 GERÁMNROXI Ot C83.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, LYMPH NOD 04/26/2017 GERMÁNROXI Ot 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 04/26/2017 ROXI DUNLAP Ot E11.9 TYPE 2 DIABETES MELLITUS WITHOUT COMPLIC 04/26/2017 ROXI DUNLAP Ot E78.5 HYPERLIPIDEMIA, UNSPECIFIED 04/26/2017 ROXI DUNLAP Ot I10 ESSENTIAL (PRIMARY) HYPERTENSION 04/26/2017 ROXI DUNLAP Ot I25.10 ATHSCL HEART DISEASE OF [place] CORONARY 04/26/2017 ROXI DUNLAP Ot T45.1X5A ADVERSE EFFECT OF ANTINEOPLASTIC AND IMM 04/26/2017 ROXI DUNLAP Ot Z51.11 ENCOUNTER FOR ANTINEOPLASTIC CHEMOTHERAP 04/26/2017 ROXI DUNLAP Ot Z79.84 FPC (CURRENT) USE OF ORAL HYPOGLYC 04/26/2017 ROXI DUNLAP Ot Z79.899 OTHER INORGANIC CHEMIST (CURRENT) DRUG THERAPY 04/26/2017 ROXI DUNLAP Ot Z87.891 PERSONAL HISTORY OF NICOTINE DEPENDENCE 04/26/2017 ROXI DUNLAP Ot Z95.5 PRESENCE OF CORONARY ANGIOPLASTY IMPLANT 04/28/2017 Ot V72.84 EXAM PRE- OPERATIVE NOS 04/28/2017 Ot 272.4 HYPERLIPIDEMIA NEC/NOS 04/28/2017 Ot 414.00 CORON ATHEROSCLER NOS TYPE VESSEL, NATIV 04/28/2017 Ot V58.69 OTH MED,LT, CURRENT USE 04/28/2017 Ot 241.0 NONTOX UNINODULAR GOITER 04/28/2017 Ot 240.9 GOITER NOS 04/28/2017 Ot 241.0 NONTOX UNINODULAR GOITER 04/28/2017 Ot 272.4 HYPERLIPIDEMIA NEC/NOS 04/28/2017 Ot 401.9 HYPERTENSION NOS 04/28/2017 Ot 414.00 CORON ATHEROSCLER NOS TYPE VESSEL, NATIV 04/28/2017 Ot V58.69 OTH MED,LT, CURRENT USE 04/28/2017 Ot 414.00 CORON ATHEROSCLER NOS TYPE VESSEL, NATIV 04/28/2017 Ot V45.82 PERCUTANEOUS TRANSLUM CORON ANGIOPLASTY 04/28/2017 VICTOR M FERRARI FACC, ADONAY FACP CCDS Ot 272.4 HYPERLIPIDEMIA NEC/NOS 04/28/2017 VICTOR M FERRARI FACC, ALI FACP CCDS Ot 414.01 CORONARY ATHEROSCLEROSIS OF [place] CORON 04/28/2017 VICTOR M FERRARI FACC, ADONAY FACP CCDS Ot V58.69 OTH MED,LT,CURRENT USE 04/28/2017 BAIMA, APRIL L INVESTIGATIONS CHIEF Ot 272.4 HYPERLIPIDEMIA NEC/NOS 04/28/2017 BAIMA, APRIL L INVESTIGATIONS CHIEF Ot 401.9 HYPERTENSION NOS 04/28/2017 BAIMA, APRIL L INVESTIGATIONS CHIEF Ot 414.01 CORONARY ATHEROSCLEROSIS OF [place] CORON 04/28/2017 BAIMA, APRIL L INVESTIGATIONS CHIEF Ot 272.4 HYPERLIPIDEMIA NEC/NOS 04/28/2017 BAIMA, APRIL L INVESTIGATIONS CHIEF Ot V58.69 OTH MED,LT,CURRENT USE 04/28/2017 BAIMA, APRIL L INVESTIGATIONS CHIEF Ot 272.4 HYPERLIPIDEMIA NEC/NOS 04/28/2017 BAIMA, APRIL L INVESTIGATIONS CHIEF Ot 414.00 CORON ATHEROSCLER NOS TYPE VESSEL, NATIV 04/28/2017 BAIMA, APRIL L INVESTIGATIONS CHIEF Ot 272.4 HYPERLIPIDEMIA NEC/NOS 04/28/2017 BAIMA, APRIL L INVESTIGATIONS CHIEF Ot 414.00 CORON ATHEROSCLER NOS TYPE VESSEL, NATIV 04/28/2017 BAIMA, APRIL L INVESTIGATIONS CHIEF Ot 447.9 ARTERIAL DISEASE NOS 04/28/2017 LARRY KUO DO Ot 241.0 NONTOX UNINODULAR GOITER 04/28/2017 BAIMA, APRIL L INVESTIGATIONS CHIEF Ot 272.4 HYPERLIPIDEMIA NEC/NOS 04/28/2017 BAIMA, APRIL L INVESTIGATIONS CHIEF Ot 414.00 CORON ATHEROSCLER NOS TYPE VESSEL, NATIV 04/28/2017 BAIMA, APRIL L INVESTIGATIONS CHIEF Ot 272.4 HYPERLIPIDEMIA NEC/NOS 04/28/2017 LESLIE FERRARI, VENKAT Wiley Ot C61 MALIGNANT NEOPLASM OF PROSTATE 04/28/2017 BAIMA, APRIL L INVESTIGATIONS CHIEF Ot E78.5 HYPERLIPIDEMIA, UNSPECIFIED 04/28/2017 BAIMA, APRIL L INVESTIGATIONS CHIEF Ot I25.10 ATHSCL HEART DISEASE OF [place] CORONARY 04/28/2017 BAIMA, APRIL L INVESTIGATIONS CHIEF Ot E78.5 HYPERLIPIDEMIA, UNSPECIFIED 04/28/2017 BAIMA, APRIL L INVESTIGATIONS CHIEF Ot I25.10 ATHSCL HEART DISEASE OF [place] CORONARY 04/28/2017 VICTOR M FERRARI FACC, ALI FACP CCDS Ot E78.4 OTHER HYPERLIPIDEMIA 04/28/2017 VICTOR M FERRARI FACC, ALI FACP CCDS Ot I10 ESSENTIAL (PRIMARY) HYPERTENSION 04/28/2017 VICTOR M FERRARI FACC, ALI FACP CCDS Ot I25.10 ATHSCL HEART DISEASE OF [place] CORONARY 04/28/2017 VICTOR M FERRARI FACC, ALI FACP CCDS Ot I65.23 OCCLUSION AND STENOSIS OF [place]ILATERAL [place] 04/28/2017 VICTOR M FERRARI FACC, ALI FACP CCDS Ot Z72.0 TOBACCO USE 04/28/2017 LARRY KUO DO Ot M25.531 PAIN IN RIGHT WRIST 04/28/2017 LARRY KUO DO Ot E04.1 NONTOXIC SINGLE THYROID NODULE 04/28/2017 [facility] Wiley Ot R22.1 LOCALIZED SWELLING, MASS AND LUMP, NECK 04/28/2017 SHIELA CARTER LARRY Wiley Ot M89.9 DISORDER OF BONE, UNSPECIFIED 04/28/2017 SHIELA CARTER LARRY Wiley Ot R22.1 LOCALIZED SWELLING, MASS AND LUMP, NECK 04/28/2017 SHIELA DO LARRY Wiley Ot R59.0 LOCALIZED ENLARGED LYMPH NODES 04/28/2017 SHIELA DO LARRY Wiley Ot M89.9 DISORDER OF BONE, UNSPECIFIED 04/28/2017 GELLENDER DO, LARRY Wiley Ot R59.0 LOCALIZED ENLARGED LYMPH NODES 04/28/2017 [facility] LARRY Wiley Ot R22.1 LOCALIZED SWELLING, MASS AND LUMP, NECK 04/28/2017 [facility] LARRY Wiley Ot C83.30 DIFFUSE LARGE B-CELL LYMPHOMA, UNSPECIFI 04/28/2017 SHIELA CARTER LARRY Wiley Ot J35.9 CHRONIC DISEASE OF TONSILS AND ADENOIDS, 04/28/2017 [facility] LARRY Wiley Ot R59.0 LOCALIZED ENLARGED LYMPH NODES 04/28/2017 ROXI DUNLAP Ot C85.90 NON-[place] LYMPHOMA, UNSPECIFIED, UNSPE 04/28/2017 ROXI DUNLAP Ot Z01.810 ENCOUNTER FOR PREPROCEDURAL CARDIOVASCUL 04/28/2017 APRIL BARRON INVESTIGATIONS CHIEF Ot E78.5 HYPERLIPIDEMIA, UNSPECIFIED 04/28/2017 APRIL BARRON INVESTIGATIONS CHIEF Ot I10 ESSENTIAL (PRIMARY) HYPERTENSION 04/28/2017 APRIL BARRON INVESTIGATIONS CHIEF Ot I25.10 ATHSCL HEART DISEASE OF [place] CORONARY 04/28/2017 APRIL BARRON INVESTIGATIONS CHIEF Ot I77.9 DISORDER OF ARTERIES AND ARTERIOLES, UNS 04/28/2017 JUSTIN ARCEO INVESTIGATIONS CHIEF Ot C83.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, LYMPH NOD 04/28/2017 ROXI DUNLAP Ot C83.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, LYMPH NOD 04/28/2017 ROXI DUNLAP Ot Z01.89 ENCOUNTER FOR OTHER SPECIFIED SPECIAL EX 04/28/2017 APRIL BARRON INVESTIGATIONS CHIEF Ot E78.4 OTHER HYPERLIPIDEMIA 04/28/2017 BAIMA, APRIL L INVESTIGATIONS CHIEF Ot I10 ESSENTIAL (PRIMARY) HYPERTENSION 04/28/2017 KASANDRAAPRIL US Licha INVESTIGATIONS CHIEF Ot I25.10 ATHSCL HEART DISEASE OF [place] CORONARY 04/28/2017 KASANDRAAPRIL US Licha INVESTIGATIONS CHIEF Ot I65.23 OCCLUSION AND STENOSIS OF [place]ILATERAL [place] 04/28/2017 NATASHA LEAHY MD, Ot C83.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, LYMPH NOD 04/28/2017 NATAHSA LEAHY MD, Ot 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 04/28/2017 NATASHA LEAHY MD Ot E11.9 TYPE 2 DIABETES MELLITUS WITHOUT COMPLIC 04/28/2017 NATASHA LEAHY MD, Ot E78.5 HYPERLIPIDEMIA, UNSPECIFIED 04/28/2017 NATASHA LEAHY MD, Ot I10 ESSENTIAL (PRIMARY) HYPERTENSION 04/28/2017 NATASHA LEAHY MD, Ot I25.10 ATHSCL HEART DISEASE OF [place] CORONARY 04/28/2017 NATASHA LEAHY MD, Ot T45.1X5A ADVERSE EFFECT OF ANTINEOPLASTIC AND IMM 04/28/2017 NATASHA LEAHY MD, Ot Z51.11 ENCOUNTER FOR ANTINEOPLASTIC CHEMOTHERAP 04/28/2017 NATASHA LEAHY MD Ot Z79.84 INORGANIC CHEMIST (CURRENT) USE OF ORAL HYPOGLYC 04/28/2017 NATASHA LEAHY MD, Ot Z79.899 OTHER FPC (CURRENT) DRUG THERAPY 04/28/2017 NATASHA LEAHY MD, Ot Z87.891 PERSONAL HISTORY OF NICOTINE DEPENDENCE 04/28/2017 NATASHA LEAHY MD Ot Z95.5 PRESENCE OF CORONARY ANGIOPLASTY IMPLANT 04/29/2017 ADONAY DOW MD, FACC FACShekhar CCDS Ot E78.4 OTHER HYPERLIPIDEMIA 04/29/2017 VICTOR M FERRARI FACC, ADONAY FACP CCDS Ot I10 ESSENTIAL (PRIMARY) HYPERTENSION 04/29/2017 VICTOR M FERRARI FACC, ADONAY FACP CCDS Ot I25.10 ATHSCL HEART DISEASE OF [place] CORONARY 04/29/2017 VICTOR M FERRARI FACC, ADONAY FACP CCDS Ot I65.23 OCCLUSION AND STENOSIS OF [place]AL [place] 04/29/2017 VICTOR M FERRARI FACC, ADONAY FACP CCDS Ot K76.9 LIVER DISEASE, UNSPECIFIED 05/04/2017 VICTOR M FERRARI FACC, ALI FACP CCDS Ot E78.4 OTHER HYPERLIPIDEMIA 05/04/2017 VICTOR M FERRARI FACC, ALI FACP CCDS Ot I10 ESSENTIAL (PRIMARY) HYPERTENSION 05/04/2017 VICTOR M FERRARI FACC, ADONAY FACP CCDS Ot I25.10 ATHSCL HEART DISEASE OF [place] CORONARY 05/04/2017 VICTOR M FERRARI FACC, ADONAY FACP CCDS Ot I65.23 OCCLUSION AND STENOSIS OF [place] 05/04/2017 VICTOR M FERRARI FACC, ADONAY FACP CCDS Ot K76.9 LIVER DISEASE, UNSPECIFIED 05/06/2017 ROXI DUNLAP Ot C83.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, LYMPH NOD 05/06/2017 ROXI DUNLAP Ot 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 05/06/2017 ROXI DUNLAP Ot E11.9 TYPE 2 DIABETES MELLITUS WITHOUT COMPLIC 05/06/2017 ROXI DUNLAP Ot E78.5 HYPERLIPIDEMIA, UNSPECIFIED 05/06/2017 ROXI DUNLAP Ot I10 ESSENTIAL (PRIMARY) HYPERTENSION 05/06/2017 ROXI DUNLAP Ot I25.10 ATHSCL HEART DISEASE OF [place] CORONARY 05/06/2017 ROXI DUNLAP Ot T45.1X5A ADVERSE EFFECT OF ANTINEOPLASTIC AND IMM 05/06/2017 ROXI DUNLAP Ot Z79.84 FPC (CURRENT) USE OF ORAL HYPOGLYC 05/06/2017 ROXI DUNLAP Ot Z79.899 OTHER FPC (CURRENT) DRUG THERAPY 05/06/2017 ROXI DUNLAP Ot Z87.891 PERSONAL HISTORY OF NICOTINE DEPENDENCE 05/06/2017 ROXI DUNLAP Ot Z95.5 PRESENCE OF CORONARY ANGIOPLASTY IMPLANT 05/20/2017 VICTOR M FERRARI FACC, ADONAY FACP CCDS Ot C85.90 NON-[place] LYMPHOMA, UNSPECIFIED, UNSPE 05/20/2017 VICTORM FERRARI FACC, ADONAY FACP CCDS Ot E11.9 TYPE 2 DIABETES MELLITUS WITHOUT COMPLIC 05/20/2017 VICTOR M FERRARI FACC, ADONAY FACP CCDS Ot E78.5 HYPERLIPIDEMIA, UNSPECIFIED 05/20/2017 VICTOR M FERRARI FACC, ADONAY FACP CCDS Ot I10 ESSENTIAL (PRIMARY) HYPERTENSION 05/20/2017 VICTOR M FERRARI FACC, ADONAY FACP CCDS Ot I25.10 ATHSCL HEART DISEASE OF [place] CORONARY 05/20/2017 VICTOR M FERRARI FACC, ADONAY FACP CCDS Ot 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 [place] 05/20/2017 VICTOR M FERRARI FACC, ALI FACP CCDS Ot R07.89 OTHER CHEST PAIN 05/20/2017 VICTOR M FERRARI FACC, ALI FACP CCDS Ot Z79.84 FPC (CURRENT) USE OF ORAL HYPOGLYC 05/20/2017 VICTOR M FERRARI FACC, ALI FACP CCDS Ot Z79.899 OTHER INORGANIC CHEMIST (CURRENT) DRUG THERAPY 05/20/2017 VICTOR M FERRARI FACC, ALI FACP CCDS Ot Z86.711 PERSONAL HISTORY OF PULMONARY EMBOLISM 05/20/2017 VICTOR M FERRARI FACC, ALI FACP CCDS Ot Z87.891 PERSONAL HISTORY OF NICOTINE DEPENDENCE 05/20/2017 VICTOR M FERRARI FACC, ALI FACP CCDS Ot Z95.5 PRESENCE OF CORONARY ANGIOPLASTY IMPLANT 05/22/2017 VICTOR M FERRARI FACC ALI FACP CCDS Ot E78.4 OTHER HYPERLIPIDEMIA 05/22/2017 VICTOR M FERRARI FACC, ALI FACP CCDS Ot I10 ESSENTIAL (PRIMARY) HYPERTENSION 05/22/2017 VICTOR M FERRARI FACC, ALI FACP CCDS Ot I25.10 ATHSCL HEART DISEASE OF [place] CORONARY 05/22/2017 VICTOR M FERRARI FACC, ALI FACP CCDS Ot I65.23 OCCLUSION AND STENOSIS OF [place] 05/22/2017 VICTOR M FERRARI FACC, ALI FACP CCDS Ot K76.9 LIVER DISEASE, UNSPECIFIED 05/23/2017 NATASHA LEAHY MD Ot C83.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, LYMPH NOD 05/23/2017 NATASHA LEAHY MD, Ot 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 05/23/2017 NATASHA LEAHY MD Ot E11.9 TYPE 2 DIABETES MELLITUS WITHOUT COMPLIC 05/23/2017 NATASHA LEAHY MD, Ot E78.5 HYPERLIPIDEMIA, UNSPECIFIED 05/23/2017 NATASHA LEAHY MD Ot I10 ESSENTIAL (PRIMARY) HYPERTENSION 05/23/2017 NATASHA LEAHY MD, Ot I25.10 ATHSCL HEART DISEASE OF [place] CORONARY 05/23/2017 NATASHA LEAHY MD, Ot T45.1X5A ADVERSE EFFECT OF ANTINEOPLASTIC AND IMM 05/23/2017 NATASHA LEAHY MD, Ot Z79.84 FPC (CURRENT) USE OF ORAL HYPOGLYC 05/23/2017 NATASHA LEAHY MD, Ot Z79.899 OTHER FPC (CURRENT) DRUG THERAPY 05/23/2017 NATASHA LEAHY MD, Ot Z87.891 PERSONAL HISTORY OF NICOTINE DEPENDENCE 05/23/2017 NATASHA LEAHY MD Ot Z95.5 PRESENCE OF CORONARY ANGIOPLASTY IMPLANT 05/26/2017 VICTOR M FERRARI FACC, ADONAY FACP CCDS Ot E78.4 OTHER HYPERLIPIDEMIA 05/26/2017 VICTOR M FERRARI FACC, ALI FACP CCDS Ot I10 ESSENTIAL (PRIMARY) HYPERTENSION 05/26/2017 VICTOR M FERRARI FACC, ALI FACP CCDS Ot I25.10 ATHSCL HEART DISEASE OF [place] CORONARY 05/26/2017 VICTOR M FERRARI FACC, ADONAY FACP CCDS Ot I65.23 OCCLUSION AND STENOSIS OF [place] 05/26/2017 VICTOR M FERRARI FACC, ADONAY FACP CCDS Ot K76.9 LIVER DISEASE, UNSPECIFIED 06/02/2017 NATASHA LEAHY MD, Ot C83.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, LYMPH NOD 06/02/2017 NATASHA LEAHY MD Ot 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 06/02/2017 NATASHA LEAHY MD Ot E11.9 TYPE 2 DIABETES MELLITUS WITHOUT COMPLIC 06/02/2017 NATASHA LEAHY MD, Ot E78.5 HYPERLIPIDEMIA, UNSPECIFIED 06/02/2017 NATASHA LEAHY MD Ot I10 ESSENTIAL (PRIMARY) HYPERTENSION 06/02/2017 NATASHA LEAHY MD, Ot I25.10 ATHSCL HEART DISEASE OF [place] CORONARY 06/02/2017 NATASHA LEAHY MD, Ot T45.1X5A ADVERSE EFFECT OF ANTINEOPLASTIC AND IMM 06/02/2017 NATASHA LEAHY MD Ot Z79.84 FPC (CURRENT) USE OF ORAL HYPOGLYC 06/02/2017 NATASHA LEAHY MD, Ot Z79.899 OTHER FPC (CURRENT) DRUG THERAPY 06/02/2017 NATASHA LEAHY MD, Ot Z87.891 PERSONAL HISTORY OF NICOTINE DEPENDENCE 06/02/2017 NATASHA LEAHY MD Ot Z95.5 PRESENCE OF CORONARY ANGIOPLASTY IMPLANT 06/03/2017 VICTOR M FERRARI FACC, ADONAY FACP CCDS Ot C85.90 NON-[place] LYMPHOMA, UNSPECIFIED, UNSPE 06/03/2017 VICTOR M FERRARI FACC, ALI FACP CCDS Ot E11.9 TYPE 2 DIABETES MELLITUS WITHOUT COMPLIC 06/03/2017 VICTOR M FERRARI FACC, ADONAY FACP CCDS Ot E78.5 HYPERLIPIDEMIA, UNSPECIFIED 06/03/2017 VICTOR M FERRARI FACC, ALI FACP CCDS Ot I10 ESSENTIAL (PRIMARY) HYPERTENSION 06/03/2017 VICTOR M FERRARI FACC, ADONAY FACP CCDS Ot I25.10 ATHSCL HEART DISEASE OF [place] CORONARY 06/03/2017 VICTOR M FERRARI FACC, ADONAY FACP CCDS Ot 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 [place] 06/03/2017 VICTOR M FERRARI FACC, ADONAY FACP CCDS Ot R07.89 OTHER CHEST PAIN 06/03/2017 VICTOR M FERRARI FACC, ADONAY FACP CCDS Ot Z79.84 INORGANIC CHEMIST (CURRENT) USE OF ORAL HYPOGLYC 06/03/2017 ADONAY DOW MD, FACC FACP CCDS Ot Z79.899 OTHER FPC (CURRENT) DRUG THERAPY 06/03/2017 ADONAY DOW MD, FACC FACP CCDS Ot Z86.711 PERSONAL HISTORY OF PULMONARY EMBOLISM 06/03/2017 ADONAY DOW MD, FACC FACP CCDS Ot Z87.891 PERSONAL HISTORY OF NICOTINE DEPENDENCE 06/03/2017 ADONAY DOW MD, FACC FACP CCDS Ot Z95.5 PRESENCE OF CORONARY ANGIOPLASTY IMPLANT 06/03/2017 NATASHA LEAHY MD, Ot C83.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, LYMPH NOD 06/03/2017 NATASHA LEAHY MD Ot 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 06/03/2017 NATASHA LEAHY MD Ot E11.9 TYPE 2 DIABETES MELLITUS WITHOUT COMPLIC 06/03/2017 NATASHA LEAHY MD, Ot E78.5 HYPERLIPIDEMIA, UNSPECIFIED 06/03/2017 NATASHA LEAHY MD Ot I10 ESSENTIAL (PRIMARY) HYPERTENSION 06/03/2017 NATASHA LEAHY MD Ot I25.10 ATHSCL HEART DISEASE OF [place] CORONARY 06/03/2017 NATASHA LEAHY MD, Ot T45.1X5A ADVERSE EFFECT OF ANTINEOPLASTIC AND IMM 06/03/2017 NATASHA LEAHY MD Ot Z79.84 INORGANIC CHEMIST (CURRENT) USE OF ORAL HYPOGLYC 06/03/2017 NATASHA LEAHY MD Ot Z79.899 OTHER FPC (CURRENT) DRUG THERAPY 06/03/2017 NATASHA LEAHY MD Ot Z87.891 PERSONAL HISTORY OF NICOTINE DEPENDENCE 06/03/2017 NATASHA LEAHY MD Ot Z95.5 PRESENCE OF CORONARY ANGIOPLASTY IMPLANT 06/23/2017 NATASHA LEAHY MD, Ot C83.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, LYMPH NOD 06/23/2017 NATASHA LEAHY MD Ot 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 06/23/2017 NATASHA LEAHY MD Ot E11.9 TYPE 2 DIABETES MELLITUS WITHOUT COMPLIC 06/23/2017 NATASHA LEAHY MD Ot E78.5 HYPERLIPIDEMIA, UNSPECIFIED 06/23/2017 NATASHA LEAHY MD Ot I10 ESSENTIAL (PRIMARY) HYPERTENSION 06/23/2017 NATASHA LEAHY MD Ot I25.10 ATHSCL HEART DISEASE OF [place] CORONARY 06/23/2017 NATASHA LEAHY MD Ot T45.1X5A ADVERSE EFFECT OF ANTINEOPLASTIC AND IMM 06/23/2017 NATASHA LEAHY MD Ot Z79.84 INORGANIC CHEMIST (CURRENT) USE OF ORAL HYPOGLYC 06/23/2017 NATASHA LEAHY MD Ot Z79.899 OTHER INORGANIC CHEMIST (CURRENT) DRUG THERAPY 06/23/2017 NATASHA LEAHY MD, Ot Z87.891 PERSONAL HISTORY OF NICOTINE DEPENDENCE 06/23/2017 NATASHA LEAHY MD Ot Z95.5 PRESENCE OF CORONARY ANGIOPLASTY IMPLANT 06/26/2017 NATASHA LEAHY MD, Ot C83.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, LYMPH NOD 06/26/2017 NATASHA LEAHY MD, Ot 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 06/26/2017 NATASHA LEAHY MD Ot E11.9 TYPE 2 DIABETES MELLITUS WITHOUT COMPLIC 06/26/2017 NATASHA LEAHY MD, Ot E78.5 HYPERLIPIDEMIA, UNSPECIFIED 06/26/2017 NATASHA LEAHY MD Ot I10 ESSENTIAL (PRIMARY) HYPERTENSION 06/26/2017 NATASHA LEAHY MD Ot I25.10 ATHSCL HEART DISEASE OF [place] CORONARY 06/26/2017 NATASHA LEAHY MD, Ot T45.1X5A ADVERSE EFFECT OF ANTINEOPLASTIC AND IMM 06/26/2017 NATASHA LEAHY MD Ot Z79.84 FPC (CURRENT) USE OF ORAL HYPOGLYC 06/26/2017 NATASHA LEAHY MD Ot Z79.899 OTHER INORGANIC CHEMIST (CURRENT) DRUG THERAPY 06/26/2017 NATASHA LEAHY MD Ot Z87.891 PERSONAL HISTORY OF NICOTINE DEPENDENCE 06/26/2017 NATASHA LEAHY MD Ot Z95.5 PRESENCE OF CORONARY ANGIOPLASTY IMPLANT 08/20/2017 NATASHA LEAHY MD Ot C83.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, LYMPH NOD 08/20/2017 NATASHA LEAHY MD Ot 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 08/20/2017 NATASHA LEAHY MD Ot E11.9 TYPE 2 DIABETES MELLITUS WITHOUT COMPLIC 08/20/2017 NATASHA LEAHY MD Ot E78.5 HYPERLIPIDEMIA, UNSPECIFIED 08/20/2017 NATASHA LEAHY MD Ot I10 ESSENTIAL (PRIMARY) HYPERTENSION 08/20/2017 NATASHA LEAHY MD, Ot I25.10 ATHSCL HEART DISEASE OF [place] CORONARY 08/20/2017 NATASHA LEAHY MD Ot T45.1X5A ADVERSE EFFECT OF ANTINEOPLASTIC AND IMM 08/20/2017 NATASHA LEAHY MD Ot Z79.84 FPC (CURRENT) USE OF ORAL HYPOGLYC 08/20/2017 NATASHA LEAHY MD, Ot Z79.899 OTHER INORGANIC CHEMIST (CURRENT) DRUG THERAPY 08/20/2017 NATASHA LEAHY MD, Ot Z87.891 PERSONAL HISTORY OF NICOTINE DEPENDENCE 08/20/2017 NATASHA LEAHY MD Ot Z95.5 PRESENCE OF CORONARY ANGIOPLASTY IMPLANT 08/26/2017 BEAN PEOPLES MD Ot K21.9 GASTRO-ESOPHAGEAL REFLUX DISEASE WITHOUT 08/26/2017 BEAN PEOPLES MD M Ot R10.13 EPIGASTRIC PAIN 08/26/2017 BEAN PEOPLES MD Ot Z01.818 ENCOUNTER FOR OTHER PREPROCEDURAL EXAMIN 08/27/2017 BEAN PEOPLES MD Ot K21.9 GASTRO-ESOPHAGEAL REFLUX DISEASE WITHOUT 08/27/2017 BEAN PEOPLES MD M Ot R10.13 EPIGASTRIC PAIN 08/27/2017 BEAN PEOPLES MD M Ot Z01.818 ENCOUNTER FOR OTHER PREPROCEDURAL EXAMIN 09/01/2017 BEAN PEOPLES MD Ot K21.9 GASTRO-ESOPHAGEAL REFLUX DISEASE WITHOUT 09/01/2017 BEAN PEOPLES MD M Ot R10.13 EPIGASTRIC PAIN 09/01/2017 BEAN PEOPLES MD M Ot Z01.818 ENCOUNTER FOR OTHER PREPROCEDURAL EXAMIN 09/01/2017 BEAN PEOPLES MD Ot E11.9 TYPE 2 DIABETES MELLITUS WITHOUT COMPLIC 09/01/2017 BEAN PEOPLES MD Ot E78.00 PURE HYPERCHOLESTEROLEMIA, UNSPECIFIED 09/01/2017 BEAN PEOPLES MD Ot I10 ESSENTIAL (PRIMARY) HYPERTENSION 09/01/2017 BEAN PEOPLES MD Ot I25.10 ATHSCL HEART DISEASE OF [place] CORONARY 09/01/2017 BEAN PEOPLES MD Ot K21.0 GASTRO-ESOPHAGEAL REFLUX DISEASE WITH ES 09/01/2017 BEAN PEOPLES MD Ot K25.9 GASTRIC ULCER, UNSP ACUTE OR CHRONIC, 09/01/2017 BEAN PEOPLES MD Ot K44.9 DIAPHRAGMATIC HERNIA WITHOUT OBSTRUCTION 09/01/2017 BEAN PEOPLES MD Ot Z79.84 INORGANIC CHEMIST (CURRENT) USE OF ORAL HYPOGLYC 09/01/2017 BEAN PEOPLES MD Ot Z79.899 OTHER FPC (CURRENT) DRUG THERAPY 09/01/2017 BEAN PEOPLES MD Ot Z87.891 PERSONAL HISTORY OF NICOTINE DEPENDENCE 09/01/2017 BEAN PEOPLES MD Ot Z88.2 ALLERGY STATUS TO SULFONAMIDES STATUS 09/02/2017 BEAN PEOPLES MD Ot E11.9 TYPE 2 DIABETES MELLITUS WITHOUT COMPLIC 09/02/2017 BEAN PEOPLES MD Ot E78.00 PURE HYPERCHOLESTEROLEMIA, UNSPECIFIED 09/02/2017 BEAN PEOPLES MD Ot I10 ESSENTIAL (PRIMARY) HYPERTENSION 09/02/2017 BEAN PEOPLES MD Ot I25.10 ATHSCL HEART DISEASE OF [place] CORONARY 09/02/2017 BEAN PEOLPES MD Ot K21.0 GASTRO-ESOPHAGEAL REFLUX DISEASE WITH ES 09/02/2017 BEAN PEOPLES MD Ot K25.9 GASTRIC ULCER, UNSP ACUTE OR CHRONIC, 09/02/2017 BEAN PEOPLES MD Ot K44.9 DIAPHRAGMATIC HERNIA WITHOUT OBSTRUCTION 09/02/2017 BEAN PEOPLES MD Ot Z79.84 FPC (CURRENT) USE OF ORAL HYPOGLYC 09/02/2017 BEAN PEOPLES MD Ot Z79.899 OTHER FPC (CURRENT) DRUG THERAPY 09/02/2017 BEAN PEOPLES MD Ot Z87.891 PERSONAL HISTORY OF NICOTINE DEPENDENCE 09/02/2017 BEAN PEOPLES MD Ot Z88.2 ALLERGY STATUS TO SULFONAMIDES STATUS 09/07/2017 BEAN PEOPLES MD Ot E11.9 TYPE 2 DIABETES MELLITUS WITHOUT COMPLIC 09/07/2017 BEAN PEOPLES MD Ot E78.00 PURE HYPERCHOLESTEROLEMIA, UNSPECIFIED 09/07/2017 BEAN PEOPLES MD Ot I10 ESSENTIAL (PRIMARY) HYPERTENSION 09/07/2017 RICHELLE FERRARI BEAN Love Ot I25.10 ATHSCL HEART DISEASE OF [place] CORONARY 09/07/2017 BEAN PEOPLES MD Ot K21.0 GASTRO-ESOPHAGEAL REFLUX DISEASE WITH ES 09/07/2017 BEAN PEOPLES MD, Ot K25.9 GASTRIC ULCER, UNSP ACUTE OR CHRONIC, 09/07/2017 BEAN PEOPLES MD, Ot K44.9 DIAPHRAGMATIC HERNIA WITHOUT OBSTRUCTION 09/07/2017 BEAN PEOPLES MD, Ot Z79.84 FPC (CURRENT) USE OF ORAL HYPOGLYC 09/07/2017 BEAN PEOPLES MD, Ot Z79.899 OTHER FPC (CURRENT) DRUG THERAPY 09/07/2017 BEAN PEOPLES MD, Ot Z87.891 PERSONAL HISTORY OF NICOTINE DEPENDENCE 09/07/2017 BEAN PEOPLES MD, Ot Z88.2 ALLERGY STATUS TO SULFONAMIDES STATUS 09/09/2017 NATASHA LEAHY MD Ot C83.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, LYMPH NOD 09/09/2017 NATASHA LEAHY MD Ot K44.9 DIAPHRAGMATIC HERNIA WITHOUT OBSTRUCTION 09/09/2017 NATASHA LEAHY MD Ot R59.0 LOCALIZED ENLARGED LYMPH NODES 09/12/2017 NATASHA LEAHY MD Ot C83.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, LYMPH NOD 09/12/2017 NATASHA LEAHY MD Ot K44.9 DIAPHRAGMATIC HERNIA WITHOUT OBSTRUCTION 09/12/2017 NATASHA LEAHY MD Ot R59.0 LOCALIZED ENLARGED LYMPH NODES 09/19/2017 ROXI DUNLAP Ot C83.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, LYMPH NOD 09/19/2017 ROXI DUNLAP Ot E11.9 TYPE 2 DIABETES MELLITUS WITHOUT COMPLIC 09/19/2017 ROXI DUNLAP Ot E78.5 HYPERLIPIDEMIA, UNSPECIFIED 09/19/2017 ROXI DUNLAP Ot I10 ESSENTIAL (PRIMARY) HYPERTENSION 09/19/2017 ROXI DUNLAP Ot I25.10 ATHSCL HEART DISEASE OF [place] CORONARY 09/19/2017 ROXI DUNLAP Ot Z79.84 INORGANIC CHEMIST (CURRENT) USE OF ORAL HYPOGLYC 09/19/2017 ROXI DUNLAP Ot Z79.899 OTHER FPC (CURRENT) DRUG THERAPY 09/19/2017 ROXI DUNLAP Ot Z87.891 PERSONAL HISTORY OF NICOTINE DEPENDENCE 09/19/2017 ROXI DUNLAP Ot Z95.5 PRESENCE OF CORONARY ANGIOPLASTY IMPLANT 11/15/2017 Ot 241.0 NONTOX UNINODULAR GOITER 11/15/2017 Ot 240.9 GOITER NOS 11/15/2017 Ot 241.0 NONTOX UNINODULAR GOITER 11/15/2017 Ot 272.4 HYPERLIPIDEMIA NEC/NOS 11/15/2017 Ot 401.9 HYPERTENSION NOS 11/15/2017 Ot 414.00 CORON ATHEROSCLER NOS TYPE VESSEL, NATIV 11/15/2017 Ot V58.69 OTH MED,LT, CURRENT USE 11/15/2017 Ot 414.00 CORON ATHEROSCLER NOS TYPE VESSEL, NATIV 11/15/2017 Ot V45.82 PERCUTANEOUS TRANSLUM CORON ANGIOPLASTY 11/15/2017 VICTOR M FERRARI FACKailash, ALI FACP CCDS Ot 272.4 HYPERLIPIDEMIA NEC/NOS 11/15/2017 VICTOR M FERRARI FACC, ALI FACP CCDS Ot 414.01 CORONARY ATHEROSCLEROSIS OF [place] CORON 11/15/2017 VICTOR M FERRARI FACKailash, ALI FACP CCDS Ot V58.69 OTH MED,LT,CURRENT USE 11/15/2017 BAIMA, APRIL L INVESTIGATIONS CHIEF Ot 272.4 HYPERLIPIDEMIA NEC/NOS 11/15/2017 BAIMA, APRIL L INVESTIGATIONS CHIEF Ot 401.9 HYPERTENSION NOS 11/15/2017 BAIMA, APRIL L INVESTIGATIONS CHIEF Ot 414.01 CORONARY ATHEROSCLEROSIS OF [place] CORON 11/15/2017 BAIMA, APRIL L INVESTIGATIONS CHIEF Ot 272.4 HYPERLIPIDEMIA NEC/NOS 11/15/2017 BAIMA, APRIL L INVESTIGATIONS CHIEF Ot V58.69 OTH MED,LT,CURRENT USE 11/15/2017 BAIMA, APRIL L INVESTIGATIONS CHIEF Ot 272.4 HYPERLIPIDEMIA NEC/NOS 11/15/2017 BAIMA, APRIL L INVESTIGATIONS CHIEF Ot 414.00 CORON ATHEROSCLER NOS TYPE VESSEL, NATIV 11/15/2017 BAIMA, APRIL L INVESTIGATIONS CHIEF Ot 272.4 HYPERLIPIDEMIA NEC/NOS 11/15/2017 BAIMA, APRIL L INVESTIGATIONS CHIEF Ot 414.00 CORON ATHEROSCLER NOS TYPE VESSEL, NATIV 11/15/2017 BAIMA, APRIL L INVESTIGATIONS CHIEF Ot 447.9 ARTERIAL DISEASE NOS 11/15/2017 LARRY KUO DO Ot 241.0 NONTOX UNINODULAR GOITER 11/15/2017 BAIMA, APRIL L INVESTIGATIONS CHIEF Ot 272.4 HYPERLIPIDEMIA NEC/NOS 11/15/2017 APRIL BARRON INVESTIGATIONS CHIEF Ot 414.00 CORON ATHEROSCLER NOS TYPE VESSEL, NATIV 11/15/2017 APRIL BARRON L INVESTIGATIONS CHIEF Ot 272.4 HYPERLIPIDEMIA NEC/NOS 11/15/2017 LESLIE FERRARI, VENKAT Wiley Ot C61 MALIGNANT NEOPLASM OF PROSTATE 11/15/2017 APRIL BARRON INVESTIGATIONS CHIEF Ot E78.5 HYPERLIPIDEMIA, UNSPECIFIED 11/15/2017 BAIAPRIL US L INVESTIGATIONS CHIEF Ot I25.10 ATHSCL HEART DISEASE OF [place] CORONARY 11/15/2017 BAIMAAPRIL L INVESTIGATIONS CHIEF Ot E78.5 HYPERLIPIDEMIA, UNSPECIFIED 11/15/2017 BAIMA, APRIL L INVESTIGATIONS CHIEF Ot I25.10 ATHSCL HEART DISEASE OF [place] CORONARY 11/15/2017 VICTOR M FERRARI FACC, ALI FACP CCDS Ot E78.4 OTHER HYPERLIPIDEMIA 11/15/2017 VICTOR M FERRARI FACC, ALI FACP CCDS Ot I10 ESSENTIAL (PRIMARY) HYPERTENSION 11/15/2017 VICTOR M FERRARI FACC, ALI FACP CCDS Ot I25.10 ATHSCL HEART DISEASE OF [place] CORONARY 11/15/2017 VICTOR M FERRARI FACC, ALI FACP CCDS Ot I65.23 OCCLUSION AND STENOSIS OF BILATERAL [place] 11/15/2017 VICTOR M FERRARI FACC, ALI FACP CCDS Ot Z72.0 TOBACCO USE 11/15/2017 SHARONDER DOLARRY Ot M25.531 PAIN IN RIGHT WRIST 11/15/2017 [facility] Ot E04.1 NONTOXIC SINGLE THYROID NODULE 11/15/2017 [facility] LARRY CARTER Ot R22.1 LOCALIZED SWELLING, MASS AND LUMP, NECK 11/15/2017 [facility] CARTER Ot M89.9 DISORDER OF BONE, UNSPECIFIED 11/15/2017 GELLENDER DOLARRY Ot R22.1 LOCALIZED SWELLING, MASS AND LUMP, NECK 11/15/2017 ARLENLENDER DOLARRY Ot R59.0 LOCALIZED ENLARGED LYMPH NODES 11/15/2017 ARLENLENDER DOLARRY Ot M89.9 DISORDER OF BONE, UNSPECIFIED 11/15/2017 GELLENDER DOLARRY Ot R59.0 LOCALIZED ENLARGED LYMPH NODES 11/15/2017 ARLENLENDER LARRY CARTER Ot R22.1 LOCALIZED SWELLING, MASS AND LUMP, NECK 11/15/2017 LARRY KUO DO Ot C83.30 DIFFUSE LARGE B-CELL LYMPHOMA, UNSPECIFI 11/15/2017 LARRY KUO DO Ot J35.9 CHRONIC DISEASE OF TONSILS AND ADENOIDS, 11/15/2017 LARRY KUO DO Ot R59.0 LOCALIZED ENLARGED LYMPH NODES 11/15/2017 ROXI DUNLAP Ot C85.90 NON-HODGKIN LYMPHOMA, UNSPECIFIED, UNSPE 11/15/2017 ROXI DUNLAP Ot Z01.810 ENCOUNTER FOR PREPROCEDURAL CARDIOVASCUL 11/15/2017 APRIL BARRON INVESTIGATIONS CHIEF Ot E78.5 HYPERLIPIDEMIA, UNSPECIFIED 11/15/2017 APRIL BARRON INVESTIGATIONS CHIEF Ot I10 ESSENTIAL (PRIMARY) HYPERTENSION 11/15/2017 APRIL BARRON INVESTIGATIONS CHIEF Ot I25.10 ATHSCL HEART DISEASE OF [place] CORONARY 11/15/2017 APRIL BARRON INVESTIGATIONS CHIEF Ot I77.9 DISORDER OF ARTERIES AND ARTERIOLES, UNS 11/15/2017 JUSTIN ARCEO INVESTIGATIONS CHIEF Ot C83.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, LYMPH NOD 11/15/2017 ROXI DUNLAP Ot C83.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, LYMPH NOD 11/15/2017 ROXI DUNLAP Ot Z01.89 ENCOUNTER FOR OTHER SPECIFIED SPECIAL EX 11/15/2017 APRIL BARRON INVESTIGATIONS CHIEF Ot E78.4 OTHER HYPERLIPIDEMIA 11/15/2017 APRIL BARRON INVESTIGATIONS CHIEF Ot I10 ESSENTIAL (PRIMARY) HYPERTENSION 11/15/2017 APRIL BARRON L INVESTIGATIONS CHIEF Ot I25.10 ATHSCL HEART DISEASE OF [place] CORONARY 11/15/2017 APRIL BARRON L INVESTIGATIONS CHIEF Ot I65.23 OCCLUSION AND STENOSIS OF BILATERAL [place] 11/15/2017 VICTOR M FERRARI FACC, ADONAY FACP CCDS Ot E78.4 OTHER HYPERLIPIDEMIA 11/15/2017 VICTOR M FERRARI FACC, ALI FACP CCDS Ot I10 ESSENTIAL (PRIMARY) HYPERTENSION 11/15/2017 VICTOR M FERRARI FACC, ALI FACP CCDS Ot I25.10 ATHSCL HEART DISEASE OF [place] CORONARY 11/15/2017 VICTOR M FERRARI FACC, ALI FACP CCDS Ot I65.23 OCCLUSION AND STENOSIS OF BILATERAL [place] 11/15/2017 VICTOR M FERRARI FACC, ALI FACP CCDS Ot K76.9 LIVER DISEASE, UNSPECIFIED 11/15/2017 NATASHA LEAHY MD Ot C83.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, LYMPH NOD 11/15/2017 NATASHA LEAHY MD Ot K44.9 DIAPHRAGMATIC HERNIA WITHOUT OBSTRUCTION 11/15/2017 NATASHA LEAHY MD Ot R59.0 LOCALIZED ENLARGED LYMPH NODES 11/15/2017 GERMÁNROXI N Ot C83.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, LYMPH NOD 11/15/2017 GERMÁNVLADIMIRAN N Ot E11.9 TYPE 2 DIABETES MELLITUS WITHOUT COMPLIC 11/15/2017 GERMÁNVLADIMIRAN N Ot E78.5 HYPERLIPIDEMIA, UNSPECIFIED 11/15/2017 GERMÁN BOBAN N Ot I10 ESSENTIAL (PRIMARY) HYPERTENSION 11/15/2017 GERMÁNVLADIMIRAN N Ot I25.10 ATHSCL HEART DISEASE OF [place] CORONARY 11/15/2017 GERMÁNVLADIMIRAN N Ot Z79.84 INORGANIC CHEMIST (CURRENT) USE OF ORAL HYPOGLYC 11/15/2017 GERMÁN BOBAN N Ot Z79.899 OTHER INORGANIC CHEMIST (CURRENT) DRUG THERAPY 11/15/2017 GERMÁN BOBAN N Ot Z87.891 PERSONAL HISTORY OF NICOTINE DEPENDENCE 11/15/2017 GERMÁN BOBAN N Ot Z95.5 PRESENCE OF CORONARY ANGIOPLASTY IMPLANT 11/19/2017 GERMÁN, BOBAN N Ot C83.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, LYMPH NOD 11/19/2017 GERMÁN BOBAN N Ot E11.9 TYPE 2 DIABETES MELLITUS WITHOUT COMPLIC 11/19/2017 GERMÁN BOBAN N Ot E78.5 HYPERLIPIDEMIA, UNSPECIFIED 11/19/2017 GERMÁN BOBAN N Ot I10 ESSENTIAL (PRIMARY) HYPERTENSION 11/19/2017 GERMÁN BOBAN N Ot I25.10 ATHSCL HEART DISEASE OF [place] CORONARY 11/19/2017 GERMÁN BOBAN N Ot Z79.84 FPC (CURRENT) USE OF ORAL HYPOGLYC 11/19/2017 GERMÁN BOBAN N Ot Z79.899 OTHER INORGANIC CHEMIST (CURRENT) DRUG THERAPY 11/19/2017 GERMÁN BOBAN N Ot Z87.891 PERSONAL HISTORY OF NICOTINE DEPENDENCE 11/19/2017 GERMÁN BOBAN N Ot Z95.5 PRESENCE OF CORONARY ANGIOPLASTY IMPLANT 11/19/2017 GERMÁN BOBAN N Ot M51.34 OTHER INTERVERTEBRAL DISC DEGENERATION, 11/19/2017 ROXI DUNLAP N Ot Z85.72 PERSONAL HISTORY OF NON-[place]IN LYMPHOMA 11/19/2017 ROXI DUNLAP Pierre Ot Z98.890 OTHER SPECIFIED POSTPROCEDURAL STATES 11/19/2017 BAIMA APRIL L INVESTIGATIONS CHIEF Ot E78.4 OTHER HYPERLIPIDEMIA 11/19/2017 BAIMA APRIL L INVESTIGATIONS CHIEF Ot I25.10 ATHSCL HEART DISEASE OF [place] CORONARY 11/20/2017 GERMÁN VLADIMIRSEBASTIEN Pierre Ot C83.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, LYMPH NOD 11/20/2017 GERMÁN VLADIMIRSEBASTIEN N Ot E11.9 TYPE 2 DIABETES MELLITUS WITHOUT COMPLIC 11/20/2017 ROXI DUNLAP N Ot E78.5 HYPERLIPIDEMIA, UNSPECIFIED 11/20/2017 GERMÁN VLADIMIRSEBASTIEN N Ot I10 ESSENTIAL (PRIMARY) HYPERTENSION 11/20/2017 GERMÁN VLADIMIRSEBASTIEN N Ot I25.10 ATHSCL HEART DISEASE OF [place] CORONARY 11/20/2017 ROXI DUNLAP Pierre Ot Z79.84 FPC (CURRENT) USE OF ORAL HYPOGLYC 11/20/2017 ROXI DUNLAP N Ot Z79.899 OTHER INORGANIC CHEMIST (CURRENT) DRUG THERAPY 11/20/2017 ROXI DUNLAP N Ot Z87.891 PERSONAL HISTORY OF NICOTINE DEPENDENCE 11/20/2017 GERMÁN VLADIMIRSEBASTIEN N Ot Z95.5 PRESENCE OF CORONARY ANGIOPLASTY IMPLANT 12/08/2017 GERMÁN VLADIMIRSEBASTIEN N Ot M51.34 OTHER INTERVERTEBRAL DISC DEGENERATION, 12/08/2017 ROXI DUNLAP N Ot Z85.72 PERSONAL HISTORY OF NON-HODGKIN LYMPHOMA 12/08/2017 GERMÁN VLADIMIRSEBASTIEN N Ot Z98.890 OTHER SPECIFIED POSTPROCEDURAL STATES 12/10/2017 KASANDRAMAGEN APRIL L INVESTIGATIONS CHIEF Ot E78.4 OTHER HYPERLIPIDEMIA 12/10/2017 BAIMAGEN APRIL L INVESTIGATIONS CHIEF Ot I25.10 ATHSCL HEART DISEASE OF [place] CORONARY 12/10/2017 GERMÁN VLADIMIRSEBASTIEN N Ot M51.34 OTHER INTERVERTEBRAL DISC DEGENERATION, 12/10/2017 ROXI DUNLAP N Ot Z85.72 PERSONAL HISTORY OF NON-[place]IN LYMPHOMA 12/10/2017 ROXI UDNLAP N Ot Z98.890 OTHER SPECIFIED POSTPROCEDURAL STATES 12/29/2017 GERMÁN VLADIMIRSEBASTIEN Pierre Ot C83.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, LYMPH NOD 12/29/2017 GERMÁN, BOBAN N Ot E11.9 TYPE 2 DIABETES MELLITUS WITHOUT COMPLIC 12/29/2017 GERMÁN, BOBAN N Ot E78.5 HYPERLIPIDEMIA, UNSPECIFIED 12/29/2017 GERMÁN, BOBAN N Ot I10 ESSENTIAL (PRIMARY) HYPERTENSION 12/29/2017 GERMÁN BOBAN N Ot I25.10 ATHSCL HEART DISEASE OF [place] CORONARY 12/29/2017 GERMÁN BOBAN N Ot Z79.84 INORGANIC CHEMIST (CURRENT) USE OF ORAL HYPOGLYC 12/29/2017 GERMÁN, BOBAN N Ot Z79.899 OTHER FPC (CURRENT) DRUG THERAPY 12/29/2017 GERMÁN, BOBAN N Ot Z87.891 PERSONAL HISTORY OF NICOTINE DEPENDENCE 12/29/2017 GERMÁN, BOBAN N Ot Z95.5 PRESENCE OF CORONARY ANGIOPLASTY IMPLANT 01/16/2018 GERMÁN, BOBAN N Ot C83.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, LYMPH NOD 01/16/2018 GERMÁN BOBAN N Ot E11.9 TYPE 2 DIABETES MELLITUS WITHOUT COMPLIC 01/16/2018 GERMÁN, BOBAN N Ot E78.5 HYPERLIPIDEMIA, UNSPECIFIED 01/16/2018 GERMÁN, BOBAN N Ot I10 ESSENTIAL (PRIMARY) HYPERTENSION 01/16/2018 GERMÁN, BOBAN N Ot I25.10 ATHSCL HEART DISEASE OF [place] CORONARY 01/16/2018 GERMÁN BOBAN N Ot Z79.84 FPC (CURRENT) USE OF ORAL HYPOGLYC 01/16/2018 GERMÁN BOBAN N Ot Z79.899 OTHER INORGANIC CHEMIST (CURRENT) DRUG THERAPY 01/16/2018 GERMÁN BOBAN N Ot Z87.891 PERSONAL HISTORY OF NICOTINE DEPENDENCE 01/16/2018 GERMÁN, BOBAN N Ot Z95.5 PRESENCE OF CORONARY ANGIOPLASTY IMPLANT 01/20/2018 GERMÁN BOBAN N Ot C83.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, LYMPH NOD 01/20/2018 GERMÁN, BOBAN N Ot E11.9 TYPE 2 DIABETES MELLITUS WITHOUT COMPLIC 01/20/2018 GERMÁN, BOBAN N Ot E78.5 HYPERLIPIDEMIA, UNSPECIFIED 01/20/2018 GERMÁN, BOBAN N Ot I10 ESSENTIAL (PRIMARY) HYPERTENSION 01/20/2018 GERMÁN, BOBAN N Ot I25.10 ATHSCL HEART DISEASE OF [place] CORONARY 01/20/2018 ROXI DUNLAP Ot Z79.84 INORGANIC CHEMIST (CURRENT) USE OF ORAL HYPOGLYC 01/20/2018 ROXI DUNLAP Ot Z79.899 OTHER FPC (CURRENT) DRUG THERAPY 01/20/2018 ROXI DUNLAP Ot Z87.891 PERSONAL HISTORY OF NICOTINE DEPENDENCE 01/20/2018 ROXI DUNLAP Ot Z95.5 PRESENCE OF CORONARY ANGIOPLASTY IMPLANT 02/05/2018 Ot 241.0 NONTOX UNINODULAR GOITER 02/05/2018 Ot 272.4 HYPERLIPIDEMIA NEC/NOS 02/05/2018 Ot 401.9 HYPERTENSION NOS 02/05/2018 Ot 414.00 CORON ATHEROSCLER NOS TYPE VESSEL, NATIV 02/05/2018 Ot V58.69 OTH MED,LT, CURRENT USE 02/05/2018 Ot 414.00 CORON ATHEROSCLER NOS TYPE VESSEL, NATIV 02/05/2018 Ot V45.82 PERCUTANEOUS TRANSLUM CORON ANGIOPLASTY 02/05/2018 VICTOR M FERRARI FAC, ALI FACP CCDS Ot 272.4 HYPERLIPIDEMIA NEC/NOS 02/05/2018 VICTOR M FERRARI FACC, ALI FACP CCDS Ot 414.01 CORONARY ATHEROSCLEROSIS OF [place] CORON 02/05/2018 VICTOR M FERRARI FACC, ALI FACP CCDS Ot V58.69 OTH MED,LT,CURRENT USE 02/05/2018 BAIMA, APRIL L INVESTIGATIONS CHIEF Ot 272.4 HYPERLIPIDEMIA NEC/NOS 02/05/2018 BAIMA, APRIL L INVESTIGATIONS CHIEF Ot 401.9 HYPERTENSION NOS 02/05/2018 BAIMA, APRIL L INVESTIGATIONS CHIEF Ot 414.01 CORONARY ATHEROSCLEROSIS OF [place] CORON 02/05/2018 BAIMA, APRIL L INVESTIGATIONS CHIEF Ot 272.4 HYPERLIPIDEMIA NEC/NOS 02/05/2018 BAIMA, APRIL L INVESTIGATIONS CHIEF Ot V58.69 OTH MED,LT,CURRENT USE 02/05/2018 BAIMA, APRIL L INVESTIGATIONS CHIEF Ot 272.4 HYPERLIPIDEMIA NEC/NOS 02/05/2018 BAIMA, APRIL L INVESTIGATIONS CHIEF Ot 414.00 CORON ATHEROSCLER NOS TYPE VESSEL, NATIV 02/05/2018 BAIMA, APRIL L INVESTIGATIONS CHIEF Ot 272.4 HYPERLIPIDEMIA NEC/NOS 02/05/2018 BAIMA, APRIL L INVESTIGATIONS CHIEF Ot 414.00 CORON ATHEROSCLER NOS TYPE VESSEL, NATIV 02/05/2018 BAIMA, APRIL L INVESTIGATIONS CHIEF Ot 447.9 ARTERIAL DISEASE NOS 02/05/2018 LARRY KUO DO Ot 241.0 NONTOX UNINODULAR GOITER 02/05/2018 KASANDRAMAGEN, APRIL L INVESTIGATIONS CHIEF Ot 272.4 HYPERLIPIDEMIA NEC/NOS 02/05/2018 BAIMA, APRIL L INVESTIGATIONS CHIEF Ot 414.00 CORON ATHEROSCLER NOS TYPE VESSEL, NATIV 02/05/2018 BAIMA, APRIL L INVESTIGATIONS CHIEF Ot 272.4 HYPERLIPIDEMIA NEC/NOS 02/05/2018 LESLIE FERRARI, VENKAT Wiley Ot C61 MALIGNANT NEOPLASM OF PROSTATE 02/05/2018 BAIMA, APRIL L INVESTIGATIONS CHIEF Ot E78.5 HYPERLIPIDEMIA, UNSPECIFIED 02/05/2018 BAIMA, APRIL L INVESTIGATIONS CHIEF Ot I25.10 ATHSCL HEART DISEASE OF [place] CORONARY 02/05/2018 BAIMA, APRIL L INVESTIGATIONS CHIEF Ot E78.5 HYPERLIPIDEMIA, UNSPECIFIED 02/05/2018 BAIMA, APRIL L INVESTIGATIONS CHIEF Ot I25.10 ATHSCL HEART DISEASE OF [place] CORONARY 02/05/2018 VICTOR M FERRARI FACC, ALI FACP CCDS Ot E78.4 OTHER HYPERLIPIDEMIA 02/05/2018 VICTOR M FERRARI FACC, ALI FACP CCDS Ot I10 ESSENTIAL (PRIMARY) HYPERTENSION 02/05/2018 VICTOR M FERRARI FACC, ALI FACP CCDS Ot I25.10 ATHSCL HEART DISEASE OF [place] CORONARY 02/05/2018 VICTOR M FERRARI FACC, ALI FACP CCDS Ot I65.23 OCCLUSION AND STENOSIS OF BILATERAL [place] 02/05/2018 VICTOR M FERRARI FACC, ALI FACP CCDS Ot Z72.0 TOBACCO USE 02/05/2018 LARRY KUO DO Ot M25.531 PAIN IN RIGHT WRIST 02/05/2018 LARRY KUO DO Ot E04.1 NONTOXIC SINGLE THYROID NODULE 02/05/2018 LARRY KUO DO Ot R22.1 LOCALIZED SWELLING, MASS AND LUMP, NECK 02/05/2018 LARRY KUO DO Ot M89.9 DISORDER OF BONE, UNSPECIFIED 02/05/2018 LARRY KUO DO Ot R22.1 LOCALIZED SWELLING, MASS AND LUMP, NECK 02/05/2018 LARRY KUO DO Ot R59.0 LOCALIZED ENLARGED LYMPH NODES 02/05/2018 LARRY KUO DO Ot M89.9 DISORDER OF BONE, UNSPECIFIED 02/05/2018 LARRY KUO DO Ot R59.0 LOCALIZED ENLARGED LYMPH NODES 02/05/2018 LARRY KUO DO Ot R22.1 LOCALIZED SWELLING, MASS AND LUMP, NECK 02/05/2018 SHIELA CARTER LARRY Wliey Ot C83.30 DIFFUSE LARGE B-CELL LYMPHOMA, UNSPECIFI 02/05/2018 LARRY KUO DO Ot J35.9 CHRONIC DISEASE OF TONSILS AND ADENOIDS, 02/05/2018 SHIELA CARTER LARRY Wiley Ot R59.0 LOCALIZED ENLARGED LYMPH NODES 02/05/2018 ROXI DUNLAP Ot C85.90 NON-[place] LYMPHOMA, UNSPECIFIED, UNSPE 02/05/2018 ROXI DUNLAP Ot Z01.810 ENCOUNTER FOR PREPROCEDURAL CARDIOVASCUL 02/05/2018 APRIL BARRON INVESTIGATIONS CHIEF Ot E78.5 HYPERLIPIDEMIA, UNSPECIFIED 02/05/2018 APRIL BARRON INVESTIGATIONS CHIEF Ot I10 ESSENTIAL (PRIMARY) HYPERTENSION 02/05/2018 APRIL BARRON INVESTIGATIONS CHIEF Ot I25.10 ATHSCL HEART DISEASE OF [place] CORONARY 02/05/2018 APRIL BARRON INVESTIGATIONS CHIEF Ot I77.9 DISORDER OF ARTERIES AND ARTERIOLES, UNS 02/05/2018 JUSTIN ARCEO INVESTIGATIONS CHIEF Ot C83.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, LYMPH NOD 02/05/2018 ROXI DUNLAP Ot C83.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, LYMPH NOD 02/05/2018 ROXI DUNLAP Ot Z01.89 ENCOUNTER FOR OTHER SPECIFIED SPECIAL EX 02/05/2018 APRIL BARRON INVESTIGATIONS CHIEF Ot E78.4 OTHER HYPERLIPIDEMIA 02/05/2018 APRIL BARRON INVESTIGATIONS CHIEF Ot I10 ESSENTIAL (PRIMARY) HYPERTENSION 02/05/2018 APRIL BARRON L INVESTIGATIONS CHIEF Ot I25.10 ATHSCL HEART DISEASE OF [place] CORONARY 02/05/2018 APRIL BARRON INVESTIGATIONS CHIEF Ot I65.23 OCCLUSION AND STENOSIS OF [place]AL [place] 02/05/2018 VICTOR M FERRARI FACC, ADONAY FACP CCDS Ot E78.4 OTHER HYPERLIPIDEMIA 02/05/2018 VICTOR M GREGORYC, ALI FACP CCDS Ot I10 ESSENTIAL (PRIMARY) HYPERTENSION 02/05/2018 VICTOR M FERRARI FACC, ALI FACP CCDS Ot I25.10 ATHSCL HEART DISEASE OF [place] CORONARY 02/05/2018 VICTOR M FERRARI [facility], ADONAY GREGORYP CCDS Ot I65.23 OCCLUSION AND STENOSIS OF [place] 02/05/2018 VICTOR M FERRARI [facility], [facility] CCD[facility] Ot K76.9 LIVER DISEASE, UNSPECIFIED 02/05/2018 NATASHA LEAHY MD, Ot C83.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, LYMPH NOD 02/05/2018 NATASHA LEAHY MD Ot K44.9 DIAPHRAGMATIC HERNIA WITHOUT OBSTRUCTION 02/05/2018 NATASHA LEAHY MD Ot R59.0 LOCALIZED ENLARGED LYMPH NODES 02/05/2018 ROXI DUNLAP N Ot M51.34 OTHER INTERVERTEBRAL DISC DEGENERATION, 02/05/2018 ROXI DUNLAP N Ot Z85.72 PERSONAL HISTORY OF NON-[place] LYMPHOMA 02/05/2018 ROXI DUNLAP N Ot Z98.890 OTHER SPECIFIED POSTPROCEDURAL STATES 02/05/2018 PARIL BARRON INVESTIGATIONS CHIEF Ot E78.4 OTHER HYPERLIPIDEMIA 02/05/2018 APRIL BARRON INVESTIGATIONS CHIEF Ot I25.10 ATHSCL HEART DISEASE OF [place] CORONARY 02/05/2018 GERMÁNROXI N Ot C83.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, LYMPH NOD 02/05/2018 ROXI DUNLAP N Ot E11.9 TYPE 2 DIABETES MELLITUS WITHOUT COMPLIC 02/05/2018 ROXI DUNLAP N Ot E78.5 HYPERLIPIDEMIA, UNSPECIFIED 02/05/2018 ROXI DUNLAP N Ot I10 ESSENTIAL (PRIMARY) HYPERTENSION 02/05/2018 ROXI DUNLAP N Ot I25.10 ATHSCL HEART DISEASE OF [place] CORONARY 02/05/2018 ROXI DUNLAP N Ot Z79.84 INORGANIC CHEMIST (CURRENT) USE OF ORAL HYPOGLYC 02/05/2018 ROXI DUNLAP N Ot Z79.899 OTHER INORGANIC CHEMIST (CURRENT) DRUG THERAPY 02/05/2018 ROXI DUNLAP N Ot Z87.891 PERSONAL HISTORY OF NICOTINE DEPENDENCE 02/05/2018 ROXI DUNLAP N Ot Z95.5 PRESENCE OF CORONARY ANGIOPLASTY IMPLANT 03/19/2018 ROXI DUNLAP N Ot C83.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, LYMPH NOD 03/19/2018 ROXI DUNLAP N Ot E11.9 TYPE 2 DIABETES MELLITUS WITHOUT COMPLIC 03/19/2018 ROXI DUNLAP N Ot E78.5 HYPERLIPIDEMIA, UNSPECIFIED 03/19/2018 GERMÁNVLADIMIRAN N Ot I10 ESSENTIAL (PRIMARY) HYPERTENSION 03/19/2018 GERMÁN, BOBAN N Ot I25.10 ATHSCL HEART DISEASE OF [place] CORONARY 03/19/2018 ROXI DUNLAP N Ot Z79.84 FPC (CURRENT) USE OF ORAL HYPOGLYC 03/19/2018 GERMÁN BOBAN N Ot Z79.899 OTHER INORGANIC CHEMIST (CURRENT) DRUG THERAPY 03/19/2018 GERMÁNVLADIMIR LEACHAN N Ot Z87.891 PERSONAL HISTORY OF NICOTINE DEPENDENCE 03/19/2018 GERMÁN, BOBAN N Ot Z95.5 PRESENCE OF CORONARY ANGIOPLASTY IMPLANT 03/20/2018 GERMÁN, BOBAN N Ot C83.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, LYMPH NOD 03/20/2018 GERMÁN, BOBAN N Ot E11.9 TYPE 2 DIABETES MELLITUS WITHOUT COMPLIC 03/20/2018 VLADIMIR DUNLAPAN N Ot E78.5 HYPERLIPIDEMIA, UNSPECIFIED 03/20/2018 GERMÁN BOBAN N Ot I10 ESSENTIAL (PRIMARY) HYPERTENSION 03/20/2018 GERMÁNVLADIMIR LEACHAN N Ot I25.10 ATHSCL HEART DISEASE OF [place] CORONARY 03/20/2018 GERMÁNVLADIMIR LEACHAN N Ot Z79.84 INORGANIC CHEMIST (CURRENT) USE OF ORAL HYPOGLYC 03/20/2018 GERMÁN BOBAN N Ot Z79.899 OTHER INORGANIC CHEMIST (CURRENT) DRUG THERAPY 03/20/2018 VLADIMIR DUNLAPAN N Ot Z87.891 PERSONAL HISTORY OF NICOTINE DEPENDENCE 03/20/2018 GERMÁN, VLADIMIRAN N Ot Z95.5 PRESENCE OF CORONARY ANGIOPLASTY IMPLANT 03/27/2018 GERMÁN BOBAN N Ot C83.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, LYMPH NOD 03/27/2018 GERMÁN, BOBAN N Ot E11.9 TYPE 2 DIABETES MELLITUS WITHOUT COMPLIC 03/27/2018 GERMÁN BOBAN N Ot E78.5 HYPERLIPIDEMIA, UNSPECIFIED 03/27/2018 GERMÁN, BOBAN N Ot I10 ESSENTIAL (PRIMARY) HYPERTENSION 03/27/2018 GERMÁN BOBAN N Ot I25.10 ATHSCL HEART DISEASE OF [place] CORONARY 03/27/2018 VLADIMIR DUNLAPAN N Ot Z45.2 ENCOUNTER FOR ADJUSTMENT AND MANAGEMENT 03/27/2018 GERMÁN, VLADIMIRAN N Ot Z79.84 INORGANIC CHEMIST (CURRENT) USE OF ORAL HYPOGLYC 03/27/2018 ROXI DUNLAP N Ot Z79.899 OTHER FPC (CURRENT) DRUG THERAPY 03/27/2018 GERMÁNROXI LEACH N Ot Z87.891 PERSONAL HISTORY OF NICOTINE DEPENDENCE 03/27/2018 GERMÁNROXI LEACH N Ot Z95.5 PRESENCE OF CORONARY ANGIOPLASTY IMPLANT 04/22/2018 ROXI DUNLAP N Ot C83.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, LYMPH NOD 04/22/2018 GERMÁNVLADIMIR LEACHAN N Ot E11.9 TYPE 2 DIABETES MELLITUS WITHOUT COMPLIC 04/22/2018 ROXI DUNLAP N Ot E78.5 HYPERLIPIDEMIA, UNSPECIFIED 04/22/2018 GERMÁN BOBAN N Ot I10 ESSENTIAL (PRIMARY) HYPERTENSION 04/22/2018 GERMÁN BOBAN N Ot I25.10 ATHSCL HEART DISEASE OF [place] CORONARY 04/22/2018 GERMÁN BOBSEBASTIEN N Ot Z45.2 ENCOUNTER FOR ADJUSTMENT AND MANAGEMENT 04/22/2018 GERMÁNROXI LEACH N Ot Z79.84 FPC (CURRENT) USE OF ORAL HYPOGLYC 04/22/2018 GERMÁNROXI LEACH N Ot Z79.899 OTHER FPC (CURRENT) DRUG THERAPY 04/22/2018 ROXI DUNLAP N Ot Z87.891 PERSONAL HISTORY OF NICOTINE DEPENDENCE 04/22/2018 GERMÁNROXI LEACH N Ot Z95.5 PRESENCE OF CORONARY ANGIOPLASTY IMPLANT 04/29/2018 ROXI DUNLAP N Ot C83.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, LYMPH NOD 04/29/2018 GERMÁN, BOBSEBASTIEN N Ot E11.9 TYPE 2 DIABETES MELLITUS WITHOUT COMPLIC 04/29/2018 GERMÁNROXI LEACH N Ot E78.5 HYPERLIPIDEMIA, UNSPECIFIED 04/29/2018 GERMÁN BOBAN N Ot I10 ESSENTIAL (PRIMARY) HYPERTENSION 04/29/2018 GERMÁN BOBAN N Ot I25.10 ATHSCL HEART DISEASE OF [place] CORONARY 04/29/2018 GERMÁN, VLADIMIRSEBASTIEN N Ot Z45.2 ENCOUNTER FOR ADJUSTMENT AND MANAGEMENT 04/29/2018 GERMÁNROXI N Ot Z79.84 FPC (CURRENT) USE OF ORAL HYPOGLYC 04/29/2018 GERMÁN BOBAN N Ot Z79.899 OTHER FPC (CURRENT) DRUG THERAPY 04/29/2018 GERMÁN BOBAN N Ot Z87.891 PERSONAL HISTORY OF NICOTINE DEPENDENCE 04/29/2018 ROXI DUNLAP N Ot Z95.5 PRESENCE OF CORONARY ANGIOPLASTY IMPLANT 05/08/2018 BAIAPRIL US L INVESTIGATIONS CHIEF Ot E78.5 HYPERLIPIDEMIA, UNSPECIFIED 05/08/2018 BAIMA, APRIL L INVESTIGATIONS CHIEF Ot I25.10 ATHSCL HEART DISEASE OF [place] CORONARY 05/26/2018 BAIAPRIL US L INVESTIGATIONS CHIEF Ot E78.5 HYPERLIPIDEMIA, UNSPECIFIED 05/26/2018 BAIMA, APRIL L INVESTIGATIONS CHIEF Ot I25.10 ATHSCL HEART DISEASE OF [place] CORONARY 06/03/2018 ROXI DUNLAP N Ot C83.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, LYMPH NOD 06/03/2018 ROXI DUNLAP N Ot E11.9 TYPE 2 DIABETES MELLITUS WITHOUT COMPLIC 06/03/2018 ROXI DUNLAP N Ot E78.5 HYPERLIPIDEMIA, UNSPECIFIED 06/03/2018 ROXI DUNLAP N Ot I10 ESSENTIAL (PRIMARY) HYPERTENSION 06/03/2018 ROXI DUNLAP N Ot I25.10 ATHSCL HEART DISEASE OF [place] CORONARY 06/03/2018 ROXI DUNLAP N Ot Z79.84 FPC (CURRENT) USE OF ORAL HYPOGLYC 06/03/2018 ROXI DUNLAP N Ot Z79.899 OTHER FPC (CURRENT) DRUG THERAPY 06/03/2018 ROXI DUNLAP N Ot Z87.891 PERSONAL HISTORY OF NICOTINE DEPENDENCE 06/03/2018 ROXI DUNLAP N Ot Z95.5 PRESENCE OF CORONARY ANGIOPLASTY IMPLANT 06/25/2018 NATASHA LEAHY MD, Ot C83.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, LYMPH NOD 06/25/2018 NATASHA LEAHY MD, Ot E11.9 TYPE 2 DIABETES MELLITUS WITHOUT COMPLIC 06/25/2018 NATASHA LEAHY MD, Ot I10 ESSENTIAL (PRIMARY) HYPERTENSION 06/25/2018 NATASHA LEAHY MD, Ot M51.34 OTHER INTERVERTEBRAL DISC DEGENERATION, 06/25/2018 NATASHA LEAHY MD, Ot Z92.21 PERSONAL HISTORY OF ANTINEOPLASTIC CHEMO 06/25/2018 NATASHA LEAHY MD, Ot Z98.1 ARTHRODESIS STATUS 06/30/2018 NATASHA LEAHY MD, Ot C83.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, LYMPH NOD 06/30/2018 NATASHA LEAHY MD Ot E11.9 TYPE 2 DIABETES MELLITUS WITHOUT COMPLIC 06/30/2018 ARMOND MD, KUAR Ot I10 ESSENTIAL (PRIMARY) HYPERTENSION 06/30/2018 NATASHA LEAHY MD, Ot M51.34 OTHER INTERVERTEBRAL DISC DEGENERATION, 06/30/2018 NATASHA LEAHY MD Ot Z92.21 PERSONAL HISTORY OF ANTINEOPLASTIC CHEMO 06/30/2018 NATASHA LEAHY MD, Ot Z98.1 ARTHRODESIS STATUS 07/23/2018 NATASHA LEAHY MD, Ot C83.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, LYMPH NOD 07/23/2018 NATASHA LEAHY MD Ot E11.9 TYPE 2 DIABETES MELLITUS WITHOUT COMPLIC 07/23/2018 NATASHA LEAHY MD, Ot I10 ESSENTIAL (PRIMARY) HYPERTENSION 07/23/2018 NATASHA LEAHY MD, Ot M51.34 OTHER INTERVERTEBRAL DISC DEGENERATION, 07/23/2018 NATASHA LEAHY MD, Ot Z92.21 PERSONAL HISTORY OF ANTINEOPLASTIC CHEMO 07/23/2018 NATASHA LEAHY MD, Ot Z98.1 ARTHRODESIS STATUS 07/27/2018 JUSTIN ARCEOP Ot C83.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, LYMPH NOD 07/27/2018 JUSTIN ARCEO INVESTIGATIONS CHIEF Ot K57.30 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 OR AB 07/27/2018 JUSTIN ARCEO INVESTIGATIONS CHIEF Ot R59.0 LOCALIZED ENLARGED LYMPH NODES 07/29/2018 ROXI DUNLAP Ot C83.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, LYMPH NOD 07/29/2018 ROXI DUNLAP Ot E11.9 TYPE 2 DIABETES MELLITUS WITHOUT COMPLIC 07/29/2018 ROXI DUNLAP Ot E78.5 HYPERLIPIDEMIA, UNSPECIFIED 07/29/2018 ROXI DUNLAP Ot I10 ESSENTIAL (PRIMARY) HYPERTENSION 07/29/2018 ROXI DUNLAP Ot I25.10 ATHSCL HEART DISEASE OF [place] CORONARY 07/29/2018 ROXI DUNLAP Ot Z79.84 FPC (CURRENT) USE OF ORAL HYPOGLYC 07/29/2018 ROXI DUNLAP Ot Z79.899 OTHER FPC (CURRENT) DRUG THERAPY 07/29/2018 ROXI DUNLAP Ot Z87.891 PERSONAL HISTORY OF NICOTINE DEPENDENCE 07/29/2018 ROXI DUNLAP Ot Z95.5 PRESENCE OF CORONARY ANGIOPLASTY IMPLANT 07/30/2018 JUSTIN ARCEO INVESTIGATIONS CHIEF Ot C83.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, LYMPH NOD 07/30/2018 JUSTIN ARCEO INVESTIGATIONS CHIEF Ot K57.30 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 OR AB 07/30/2018 JUSTIN ARCEO INVESTIGATIONS CHIEF Ot R59.0 LOCALIZED ENLARGED LYMPH NODES 07/31/2018 ROXI DUNLAP Pierre Ot C83.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, LYMPH NOD 07/31/2018 GERMÁNROXI LEAHC N Ot E11.9 TYPE 2 DIABETES MELLITUS WITHOUT COMPLIC 07/31/2018 GERMÁN, ROXI N Ot E78.5 HYPERLIPIDEMIA, UNSPECIFIED 07/31/2018 GERMÁN BOBAN N Ot I10 ESSENTIAL (PRIMARY) HYPERTENSION 07/31/2018 GERMÁN ROXI N Ot I25.10 ATHSCL HEART DISEASE OF [place] CORONARY 07/31/2018 GERMÁNROXI N Ot Z79.84 FPC (CURRENT) USE OF ORAL HYPOGLYC 07/31/2018 GERMÁNROXI N Ot Z79.899 OTHER FPC (CURRENT) DRUG THERAPY 07/31/2018 GERMÁNROXI N Ot Z87.891 PERSONAL HISTORY OF NICOTINE DEPENDENCE 07/31/2018 GERMÁNROXI N Ot Z95.5 PRESENCE OF CORONARY ANGIOPLASTY IMPLANT 07/31/2018 VLADIMIR DUNLAPSEBASTIEN N Ot C83.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, LYMPH NOD 07/31/2018 GERMÁN, BOBSEBASTIEN N Ot E11.9 TYPE 2 DIABETES MELLITUS WITHOUT COMPLIC 07/31/2018 GERMÁN BOBSEBASTIEN N Ot E78.5 HYPERLIPIDEMIA, UNSPECIFIED 07/31/2018 GERMÁN BOBAN N Ot I10 ESSENTIAL (PRIMARY) HYPERTENSION 07/31/2018 GERMÁNROXI N Ot I25.10 ATHSCL HEART DISEASE OF [place] CORONARY 07/31/2018 GERMÁNROXI N Ot Z79.84 FPC (CURRENT) USE OF ORAL HYPOGLYC 07/31/2018 GERMÁNROXI N Ot Z79.899 OTHER INORGANIC CHEMIST (CURRENT) DRUG THERAPY 07/31/2018 GERMÁNROXI N Ot Z87.891 PERSONAL HISTORY OF NICOTINE DEPENDENCE 07/31/2018 GERMÁN BOBSEBASTIEN N Ot Z95.5 PRESENCE OF CORONARY ANGIOPLASTY IMPLANT 08/03/2018 RICHELLE FERRARI, BEAN Love Ot Z01.818 ENCOUNTER FOR OTHER PREPROCEDURAL EXAMIN Procedures Code Description Performed By Performed On 45.43 ENDOSCOP DEST OF OTH LESION OR TISU OF L 06/04/2012 Results Test Result Range Comprehensive metabolic panel - 03/15/16 07:20 Serum or plasma sodium measurement (moles/volume) 140 mmol/L 135-145 Serum or plasma potassium measurement (moles/volume) 4.2 mmol/L 3.6-5.0 Serum or plasma chloride measurement (moles/volume) 109 mmol/L 98-107 Carbon dioxide 21 mmol/L 21-32 Serum or plasma anion gap determination (moles/volume) 10 mmol/L 5-14 Serum or plasma urea nitrogen measurement (mass/volume) 13 mg/dL 7-18 Serum or plasma creatinine measurement (mass/volume) 0.77 mg/dL 0.60-1.30 Serum or plasma urea nitrogen/creatinine mass [...] Serum or plasma cholesterol measurement (mass/volume) 97 mg/dL < 200 Serum or plasma cholesterol in HDL measurement (mass/volume) 34 mg/ dL 40-60 Cholesterol in LDL [mass/volume] in serum or plasma by direct assay 37 mg/dL 1-129 Serum or plasma cholesterol in VLDL measurement (mass/volume) 31 mg/ dL 5-40 Methicillin resistant Staphylococcus aureus (MRSA) screening culture - 11:42 Methicillin resistant Staphylococcus aureus (MRSA) screening culture NEG NRG Capillary blood glucose measurement by glucometer (mass/volume) - 08/21/16 11: 34 Capillary blood glucose measurement by glucometer (mass/volume) 100 mg/dL 70-110 Complete blood count (CBC) with automated white blood cell (WBC) differential - 08/24/16 21:55 Blood leukocytes automated count (number/volume) 7.1 10*3/uL 4.3-11.0 Blood erythrocytes automated count (number/volume) 4.95 10*6/uL 4.35-5.85 Venous blood hemoglobin measurement (mass/volume) 15.1 [...] Automated blood platelet mean volume measurement 9.7 [foz_us] 7.4-10.4 Automated blood neutrophils/100 leukocytes 59 % [...] Serum or plasma sodium measurement (moles/volume) 141 mmol/L 135-145 Serum or plasma potassium measurement (moles/volume) 4.2 mmol/L 3.6-5.0 Serum or plasma chloride measurement (moles/volume) 108 mmol/L 98-107 Carbon dioxide 22 mmol/L 21-32 Serum or plasma anion gap determination (moles/volume) 11 mmol/L 5-14 Serum or plasma urea nitrogen measurement (mass/volume) 16 mg/dL 7-18 Serum or plasma creatinine measurement (mass/volume) 0.91 mg/dL 0.60-1.30 Serum or plasma urea nitrogen/creatinine mass ratio 18 NRG Serum or plasma creatinine measurement with calculation of estimated glomerular filtration rate > NRG Serum or plasma glucose measurement (mass/volume) 118 mg/dL 70-105 Serum or plasma calcium measurement (mass/volume) 10.0 mg/dL 8.5-10.1 Methicillin resistant Staphylococcus aureus (MRSA) screening culture - 10:35 Methicillin resistant Staphylococcus aureus (MRSA) screening culture NEG NRG Capillary blood glucose measurement by glucometer (mass/volume) - 09/05/16 10: 43 Capillary blood glucose measurement by glucometer (mass/volume) 109 mg/dL 70-110 Complete blood count (CBC) with automated white blood cell (WBC) differential - 10/22/16 17:05 Blood leukocytes automated count (number/volume) 1.7 10*3/uL 4.3-11.0 Blood erythrocytes automated count (number/volume) 4.76 10*6/uL 4.35-5.85 Venous blood hemoglobin measurement (mass/volume) 14.3 [...] Automated blood platelet mean volume measurement 9.7 [foz_us] 7.4-10.4 Automated blood neutrophils/100 leukocytes 58 % [...] Serum or plasma sodium measurement (moles/volume) 137 mmol/L 135-145 Serum or plasma potassium measurement (moles/volume) 3.9 mmol/L 3.6-5.0 Serum or plasma chloride measurement (moles/volume) 106 mmol/L 98-107 Carbon dioxide 21 mmol/L 21-32 Serum or plasma anion gap determination (moles/volume) 10 mmol/L 5-14 Serum or plasma urea nitrogen measurement (mass/volume) 10 mg/dL 7-18 Serum or plasma creatinine measurement (mass/volume) 0.82 mg/dL 0.60-1.30 Serum or plasma urea nitrogen/creatinine mass [...] - 10/22/16 17:53 Bacterial blood culture NG NRG Complete urinalysis with reflex to culture - 10/22/16 22:06 Urine color determination REAL NRG Urine clarity determination VERY CLOUDY NRG Urine pH measurement by test strip 5 5-9 Specific gravity of urine by test strip 1.030 1.016- 1.022 Urine protein assay by test strip, semi-quantitative [...] 05:15 Blood leukocytes automated count (number/volume) 1.9 10*3/uL 4.3-11.0 Blood erythrocytes automated count (number/volume) 4.21 10*6/uL 4.35-5.85 Venous blood hemoglobin measurement (mass/volume) 12.9 [...] Automated blood platelet mean volume measurement 9.7 [foz_us] 7.4-10.4 Automated blood neutrophils/100 leukocytes 60 % [...] Serum or plasma sodium measurement (moles/volume) 139 mmol/L 135-145 Serum or plasma potassium measurement (moles/volume) 3.8 mmol/L 3.6-5.0 Serum or plasma chloride measurement (moles/volume) 111 mmol/L 98-107 Carbon dioxide 21 mmol/L 21-32 Serum or plasma anion gap determination (moles/volume) 7 mmol/L 5-14 Serum or plasma urea nitrogen measurement (mass/volume) 9 mg/dL 7-18 Serum or plasma creatinine measurement (mass/volume) 0.70 mg/dL 0.60-1.30 Serum or plasma urea nitrogen/creatinine mass [...] RESULTS NEGATIVE FOR ANTIGEN AND TOXIN A/B NRG Complete blood count (CBC) with automated white blood cell (WBC) differential - 10/24/16 06:45 Blood leukocytes automated count (number/volume) 7.4 10*3/uL 4.3-11.0 Blood erythrocytes automated count (number/volume) 4.37 10*6/uL 4.35-5.85 Venous blood hemoglobin measurement (mass/volume) 13.2 [...] Automated blood platelet mean volume measurement 9.9 [foz_us] 7.4-10.4 Automated blood neutrophils/100 leukocytes 76 % [...] Serum or plasma sodium measurement (moles/volume) 139 mmol/L 135-145 Serum or plasma potassium measurement (moles/volume) 3.5 mmol/L 3.6-5.0 Serum or plasma chloride measurement (moles/volume) 110 mmol/L 98-107 Carbon dioxide 20 mmol/L 21-32 Serum or plasma anion gap determination (moles/volume) 9 mmol/L 5-14 Serum or plasma urea nitrogen measurement (mass/volume) 5 mg/dL 7-18 Serum or plasma creatinine measurement (mass/volume) 0.70 mg/dL 0.60-1.30 Serum or plasma urea nitrogen/creatinine mass [...] NRG Blood erythrocyte morphology finding identification NORMAL NR Automated blood complete blood count (hemogram) panel - 05/20/17 07:05 Blood leukocytes automated count (number/volume) 5.3 10*3/uL 4.3-11.0 Blood erythrocytes automated count (number/volume) 4.74 10*6/uL 4.35-5.85 Venous blood hemoglobin measurement (mass/volume) 14.3 g/dL 13.3-17.7 Blood hematocrit (volume fraction) 41 % 40-54 Automated erythrocyte mean corpuscular volume 87 [foz_us] 80-99 Automated erythrocyte mean corpuscular hemoglobin (mass per erythrocyte) 30 pg 25-34 Automated erythrocyte mean corpuscular hemoglobin concentration measurement ( mass/volume) 35 g/dL 32-36 Automated erythrocyte distribution width ratio 12.5 % 10.0-14.5 Automated blood platelet count (count/volume) 250 10*3/uL 130-400 Automated blood platelet mean volume measurement 9.8 [foz_us] 7.4-10.4 PT panel in platelet poor plasma by coagulation assay - 05/20/17 07:05 Prothrombin time (PT) in platelet poor plasma by coagulation assay 13.9 s 12.2-14.7 INR in platelet poor plasma or blood by coagulation assay 1.1 0.8-1.4 Activated partial thromboplastin time (aPTT) in platelet poor plasma bycoagulation assay - 05/20/17 07:05 Activated partial thromboplastin time (aPTT) in platelet poor plasma bycoagulation assay 29 s 24-35 Comprehensive metabolic panel - 05/20/17 07:05 Serum or plasma sodium measurement (moles/volume) 140 mmol/L 135-145 Serum or plasma potassium measurement (moles/volume) 3.6 mmol/L 3.6-5.0 Serum or plasma chloride measurement (moles/volume) 108 mmol/L 98-107 Carbon dioxide 23 mmol/L 21-32 Serum or plasma anion gap determination (moles/volume) 9 mmol/L 5-14 Serum or plasma urea nitrogen measurement (mass/volume) 13 mg/dL 7-18 Serum or plasma creatinine measurement (mass/volume) 0.81 mg/dL 0.60-1.30 Serum or plasma urea nitrogen/creatinine mass ratio 16 NRG Serum or plasma creatinine measurement with calculation of estimated glomerular filtration rate > NRG Serum or plasma glucose measurement (mass/volume) 134 mg/dL 70-105 Serum or plasma calcium measurement (mass/volume) 9.7 mg/dL 8.5-10.1 Serum or plasma total bilirubin measurement (mass/volume) 0.4 mg/dL 0.1-1.0 Serum or plasma alkaline phosphatase measurement (enzymatic activity/volume) 71 U/L 40-136 Serum or plasma aspartate aminotransferase measurement (enzymatic activity/ volume) 21 U/L 5-34 Serum or plasma alanine aminotransferase measurement (enzymatic activity/volume ) 36 U/L 0-55 Serum or plasma protein measurement (mass/volume) 6.4 g/dL 6.4-8.2 Serum or plasma albumin measurement (mass/volume) 4.0 g/dL 3.2-4.5 Lipid 1996 panel - 05/20/17 07:05 Serum or plasma triglyceride measurement (mass/volume) 206 mg/dL <150 Serum or plasma cholesterol measurement (mass/volume) 170 mg/dL < 200 Serum or plasma cholesterol in HDL measurement (mass/volume) 42 mg/ dL 40-60 Cholesterol in LDL [mass/volume] in serum or plasma by direct assay 91 mg/dL 1-129 Serum or plasma cholesterol in VLDL measurement (mass/volume) 41 mg/ dL 5-40 Methicillin resistant Staphylococcus aureus (MRSA) screening culture - 07:05 Methicillin resistant Staphylococcus aureus (MRSA) screening culture NEG NRG Capillary blood glucose measurement by glucometer (mass/volume) - 09/01/17 09: 57 Capillary blood glucose measurement by glucometer (mass/volume) 111 mg/dL 70-110 Encounters ACCT No. Visit Date/Time Discharge Status Pt. Type Provider Facility Loc./Unit Complaint [id number] 08/03/2018 06:17:00 08/03/2018 13:35:00 DIS Outpatient BEAN PEOPLES MD Via [facility] [address] PREOP PORT REMOVAL [id number] 07/30/2018 10:19:00 07/30/2018 23:59:59 CLS Outpatient ROXI DUNLAP [facility] [address] ONC [id number] 07/29/2018 09:06:00 07/29/2018 12:25:00 DIS Outpatient NATASHA LEAHY MD [facility] [address] REHAB BACK PAIN;THORACIC DDD [id number] 07/24/2018 10:57:00 07/29/2018 00:01:00 DIS Outpatient ROXI DUNLAP [facility] [address] ONC [id number] 07/24/2018 10:48:00 07/24/2018 23:59:59 CLS Outpatient JUSTIN ARCEO [facility] [address] RAD DIFFUSE LARGE B CELL LYMPHOMA [id number] 05/05/2018 08:08:00 05/05/2018 23:59:59 CLS Outpatient APRIL BARRON [facility] [address] LAB E78.4 [id number] 03/19/2018 09:06:00 03/27/2018 00:01:00 DIS Outpatient ROXI DUNLAP [facility] [address] ONC [id number] 02/12/2018 08:46:00 03/19/2018 09:04:00 DIS Outpatient ROXI DUNLAP [facility] [address] ONC [id number] 02/05/2018 08:51:00 02/05/2018 23:59:59 CLS Outpatient ROXI DUNLAP [facility] [address] RAD Z01.89 RESTAGE NEOPLASM [id number] 11/13/2017 08:42:00 11/19/2017 00:01:00 DIS Outpatient ROXI DUNLAP [facility] [address] ONC [id number] 11/18/2017 08:03:00 11/18/2017 23:59:59 CLS Outpatient KASANDRAMAGENAPRIL [facility] [address] LAB I25.10 E78.4 [id number] 11/15/2017 08:33:00 11/15/2017 23:59:59 CLS Outpatient ROXI DUNLAP [facility] [address] RAD M54.9 MID BACK PAIN [id number] 09/01/2017 09:34:00 09/01/2017 12:15:00 DIS Outpatient BEAN PEOPLES MD [facility] [address] ENDO EPIGASTRIC PAIN/ GERD [id number] 08/26/2017 05:42:00 08/26/2017 12:53:00 DIS Outpatient BEAN PEOPLES MD [facility] [address] PREOP EGD [id number] 08/13/2017 08:54:00 08/20/2017 15:47:00 DIS Outpatient NATASHA LEAHY MD [facility] [address] ONC [id number] 08/13/2017 10:01:00 08/13/2017 23:59:59 CLS Outpatient NATASHA LEAHY MD [facility] [address] RAD C83.38 DIFFUSE LARGE B CELL LYMPHOMA [id number] 05/20/2017 06:46:00 05/20/2017 11:30:00 DIS Outpatient ADONAY DOW MD, FACC, FACP CCDS [facility] [address] CATH ABD DISCOMFORT,CAD [id number] 04/28/2017 07:42:00 04/28/2017 23:59:59 CLS Outpatient ADONAY DOW MD, FACC, FACP CCDS [facility] [address] RAD R10.13 [id number] 04/10/2017 09:06:00 04/26/2017 00:01:00 DIS Outpatient ROXI DUNLAP [facility] [address] ONC [id number] 03/17/2017 07:35:00 03/17/2017 23:59:59 CLS Outpatient APRIL BARRON [facility] [address] LAB I24.10,I65.23,E78.4, I10 [id number] 02/27/2017 09:51:00 03/05/2017 00:01:00 DIS Outpatient ROXI DUNLAP [facility] [address] ONC [id number] 02/24/2017 11:00:00 02/24/2017 23:59:59 CLS Outpatient ROXI DUNLAP [facility] [address] RAD DIFFUSE LARGE B CELL LYMPHOMA [id number] 12/04/2016 09:37:00 12/04/2016 00:01:00 DIS Outpatient ROXI DUNLAP [facility] [address] ONC [id number] 11/26/2016 08:35:00 11/26/2016 23:59:59 CLS Outpatient JUSTIN ARCEO [facility] [address] RAD DIFFUSE LARGE B CELL LYMPHOMA [id number] 10/22/2016 18:26:00 10/24/2016 14:32:00 DIS Inpatient LARRY KUO DO [facility] [address] 4TH NEUTROPENIC FEVER, TOOTH ABSCESS,NON HODGKINS LYMPH [id number] 09/18/2016 08:59:00 09/18/2016 23:59:59 CLS Outpatient APRIL BARRON [facility] [address] LAB [id number] 09/06/2016 07:41:00 09/06/2016 23:59:59 CLS Outpatient ROXI DUNLAP [facility] [address] CARD Z01.810 [id number] 09/05/2016 10:25:00 09/05/2016 15:30:00 DIS Outpatient BEAN PEOPLES MD [facility] [address] SDC LYMPHOMA [id number] 09/04/2016 05:51:00 09/04/2016 13:58:00 DIS Outpatient BEAN PEOPLES MD [facility] [address] PREOP LYMPHOMA [id number] 09/03/2016 08:52:00 09/03/2016 23:59:59 CLS Outpatient LARRY KUO DO [facility] [address] [facility] RAD LYMPHOMA [id number] 08/24/2016 21:25:00 08/24/2016 22:58:00 DIS Emergency OLGA LIDIA GARCIA SVP RESEARCH AND STRATEGIC ANALYSIS [facility] [address] ER L LEG SWELLING [id number] 08/21/2016 11:22:00 08/21/2016 16:03:00 DIS Outpatient RICHELLE FERRARI, BEAN Love [facility] [address] [facility] SDC LYMPHADENOTATHY [id number] 08/15/2016 11:29:00 08/15/2016 11:52:00 DIS Outpatient BEAN PEOPLES MD [facility] [address] PREOP LYMPHADENOTATHY [id number] 08/13/2016 07:05:00 08/13/2016 23:59:59 CLS Outpatient LARRY KUO DO [facility] CARD SCLEROTIC,LESION ON T4 AND T2 [id number] 08/12/2016 13:08:00 08/12/2016 23:59:59 CLS Outpatient LARRY KUO DO [facility] [address] [facility] RAD RIGHT SIDE OF NECK SWOLLEN [id number] 07/18/2016 08:14:00 07/18/2016 23:59:59 CLS Outpatient LARRY KUO DO [facility] [address] RAD COMPLICATED CYSTIC BESIUM [id number] 07/11/2016 10:39:00 07/11/2016 23:59:59 CLS Outpatient LARRY KUO DO [facility] [address] [facility] RAD CYST IN NECK [id number] 07/01/2016 11:52:00 07/01/2016 23:59:59 CLS Outpatient LARRY KUO DO [facility] RAD PAIN IN RIGHT WRIST [id number] 05/07/2016 06:59:00 05/07/2016 23:59:59 CLS Outpatient VICTOR M FERRARI FACCADONAY FACP CCDS [facility] [address] [facility] CARD CAD,HLP,HTN, CAROTID ARTERIAL DISEASE [id number] 03/15/2016 07:14:00 03/15/2016 23:59:59 CLS Outpatient APRIL BARRON [facility] [address] LAB CAD,HYPERLIPIDEMIA [id number] 09/15/2015 07:14:00 09/15/2015 23:59:59 CLS Outpatient BAIMA, APRIL L INVESTIGATIONS CHIEF [facility] [address] [facility] LAB CAD,HLP [id number] 06/15/2015 11:36:00 06/15/2015 23:59:59 CLS Outpatient VENKAT NELSON MD [facility] [address] CARD PROSTATE CA [id number] 03/17/2015 07:07:00 03/17/2015 23:59:59 CLS Outpatient BAIMA, APRIL L INVESTIGATIONS CHIEF [facility] [address] [facility] LAB HYPERLIPIDEMIA [id number] 09/01/2014 07:04:00 09/01/2014 23:59:59 CLS Outpatient BAIMA, APRIL L INVESTIGATIONS CHIEF [facility] [address] [facility] LAB CAD,HLP [id number] 05/17/2014 09:12:00 05/17/2014 23:59:59 CLS Outpatient SHIELA CARTER LARRY Saurabh [facility] [address] RAD THYROID NODULE RT SIDE [id number] 03/11/2014 07:01:00 03/11/2014 23:59:59 CLS Outpatient BAIMA, APRIL L INVESTIGATIONS CHIEF [facility] LAB CAD,CAROTID ARTERIAL DISEASE,HYPERLIPIDEMIA [id number] 08/02/2013 07:11:00 08/02/2013 23:59:59 CLS Outpatient BAIMA, APRIL L INVESTIGATIONS CHIEF [facility] [address] [facility] LAB CAD,HYPERLIPIDEMIA [id number] 04/13/2013 07:43:00 04/13/2013 23:59:59 CLS Outpatient BAIMA, APRIL L INVESTIGATIONS CHIEF [facility] [address] LAB HYPERLIPIDEMIA, STATIN TRX [id number] 03/05/2013 07:09:00 03/05/2013 23:59:59 CLS Outpatient BAIMA, APRIL L INVESTIGATIONS CHIEF [facility] [address] LAB CAD,HYPERTENSION, HYPERLIPIDEMIA,STATIN [place] [id number] 12/31/2012 07:12:00 12/31/2012 23:59:59 CLS Outpatient VICTOR M FERRARI FACC, ADONAY ANDRES CCDS [facility] [address] LAB CAD,STATIN TX, HYPERLIPIDEMIA [id number] 08/07/2018 09:00:00 IVAN PEOPLES MD, BEAN Love [facility] NON HODGKINS LYMPHOMA [id number] 03/17/2015 07:07:00 Document Registration [id number] 03/17/2015 07:07:00 Document Registration [id number] 03/17/2015 07:07:00 Document Registration [id number] 03/17/2015 07:07:00 Document Registration [id number] 03/17/2015 07:07:00 Document Registration [id number] 03/17/2015 07:07:00 Document Registration [id number] 03/17/2015 07:07:00 Document Registration [id number] 03/17/2015 07:07:00 Document Registration [id number] 10/26/2012 07:43:00 Document Registration [id number] 10/05/2012 10:15:00 Document Registration [id number] 06/23/2012 11:38:00 Document Registration [id number] 06/04/2012 13:53:00 Document Registration [id number] 05/28/2012 10:32:00 Document Registration [id number] 05/25/2012 06:56:00 Document Registration [id number] 05/22/2012 08:15:00 Document Registration [id number] 04/16/2012 07:26:00 Document Registration [id number] 01/07/2011 07:33:00 Document Registration [id number] 12/06/2010 07:35:00 Document Registration [id number] 10/08/2010 07:50:00 Document Registration [id number] 10/08/2010 07:49:00 Document Registration [id number] 08/30/2010 07:43:00 Document Registration [id number] 08/02/2010 08:11:00 Document Registration [id number] 07/06/2010 12:09:00 Document Registration [id number] 04/12/2010 08:08:00 Document Registration [id number] 04/04/2010 16:27:00 Document Registration [id number] 03/26/2010 09:52:00 Document Registration [id number] 03/21/2010 15:49:00 Document Registration [id number] 12/12/2009 13:34:00 Document Registration
--- NOTE | 2018-08-07 08:28 | Progress Note-Pre Operative ---
Pre-Operative Progress Note H&P Reviewed The H&P was reviewed, patient examined and no changes noted. Date Seen by Provider: Aug 07, 2018 Time Seen by Provider: 08:28 Date H&P Reviewed: Aug 07, 2018 Time H&P Reviewed: 08:28 Pre-Operative Diagnosis: Treated lymphoma BEAN PEOPLES MD Aug 07, 2018 08:28
--- NOTE | 2018-08-07 08:28 | History & Physicial ---
History of Present Illness History of Present Illness Reason for visit/HPI For removal of infusaport, having completed systemic therapy for lymphoma Date of Admission Date Seen by a Provider: Aug 07, 2018 Time Seen by a Provider: 08:27 I consulted on this patient on 08/07/18 08:26 Attending Physician Bean Peoples MD Admitting Physician Lance Espinal MD Consult Allergies and Home Medications Allergies Coded Allergies: sulfamethoxazole (Verified Allergy, Unknown, 10/07/08) trimethoprim (Verified Allergy, Unknown, 10/07/08) Home Medications Amlodipine Besylate 5 Mg Tablet, 5 MG PO DAILY, (Reported) Aspirin 81 Mg Tablet.dr, 81 MG PO DAILY, (Reported) Fenofibrate,Micronized 134 Mg Capsule, 134 MG PO DAILY, (Reported) Metformin HCl 500 Mg Tablet, 1,000 MG PO BID, (Reported) take 2 (500mg) tabs Metoprolol Tartrate 50 Mg Tablet, 50 MG PO BID, (Reported) Rosuvastatin Calcium 5 Mg Tablet, 5 MG PO HS, (Reported) Patient Home Medication List Home Medication List Reviewed: Yes Past Rtimjjh-Dlkkbo-Cwkvrn Hx Patient Social History Employed/Student: retired Alcohol Beverage of Choice: evocatal Former Smoker, Quit: May 20, 2004 Type Used: Cigarettes Recent Foreign Travel: No Contact w/other who traveled: No Recent Hopitalizations: No Immunizations Up To Date Tetanus Booster (TDap): Unknown Pediatric: No Date of Pneumonia Vaccine: May 28, 2016 Date of Influenza Vaccine: Apr 25, 2018 Seasonal Allergies Seasonal Allergies: No Surgeries Yes (TURP, BACK SX, PORT PLACEMENT) Coronary Stent Respiratory No Cardiovascular Yes (STENT x1) Coronary Artery Disease, High Cholesterol, Hypertension Neurological No Reproductive System Hx Reproductive Disorders: No Sexually Transmitted Disease: No HIV/AIDS: No Genitourinary No Gastrointestinal Yes Gastroesophageal Reflux Musculoskeletal Yes Arthritis Endocrine History of Endocrine Disorders: Yes Endocrine Disorders: Diabetes, Non-Insulin dep HEENT History of HEENT Disorders: No (cataracts removed) Loss of Vision: Denies Hearing Impairment: Denies Cancer Yes Prostate, Lymphoma Type of Treatment: Surgical Intervention Psychosocial History of Psychiatric Problem: No Integumentary History of Skin or Integumenta: No Blood Transfusions History of Blood Disorders: No Adverse Reaction to a Blood Tr: No (N/A) Family Medical History Significant Family History: No Pertinent Family Hx Family Hx: Patient reports no known family medical history. Review of Systems Constitutional: no symptoms reported EENTM: no symptoms reported Respiratory: no symptoms reported Cardiovascular: no symptoms reported Gastrointestinal: no symptoms reported Genitourinary: no symptoms reported Musculoskeletal: no symptoms reported Skin: no symptoms reported Psychiatric/Neurological: No Symptoms Reported Physical Exam Vital Signs Capillary Refill : Height, Weight, BMI Height: 5'8.00" Weight: 175lbs. 0.0oz. 79.365058cv; 26.6 BMI Method:Stated General Appearance: No Apparent Distress Respiratory: Lungs Clear Cardiovascular: Regular Rate, Rhythm Gastrointestinal: Non Tender, Soft Neurologic/Psychiatric: Alert, Oriented x3 Assessment/Plan Assessment and Plan Gentleman with treated NHL; for removal of port Admission Diagnosis Admission Status: Other (Same Day Surgery) BEAN PEOPLES MD Aug 07, 2018 08:28
[2018-08-07] MEDS ORDERED: BUP/EPI 0.5% 1:200,000 (SENSORCAINE) 30 ML VIAL ONE (08:43)
[2018-08-07 08:46] VITALS: BP 143/86
[2018-08-07] MEDS ORDERED: LACTATED RINGERS 1,000 ML IV PRN (08:49)
[2018-08-07] MEDS ORDERED: ceFAZolin INJECTION 1,000 MG in NS (IVPB) 50 ML IV ONE (09:00)
[2018-08-07] MEDS ORDERED: fentaNYL INJECTION 100 MCG/2 ML AMP ONE (09:05)
[2018-08-07] MEDS ORDERED: MIDAZOLAM 2 MG/2 ML (VERSED) VIAL ONE (09:05)
[2018-08-07] MEDS ORDERED: proPOfol 200 MG/20 ML (DIPRIVAN) VIAL IV ONE (09:05)
--- NOTE | 2018-08-07 09:40 | Operative Report ---
Operative Report Date of Procedure/Surgery Aug 07, 2018 Surgeon (s) BEAN PEOPLES MD Silk Worker (s): N/A Post-Operative Diagnosis same Procedure Performed Removal of Jlyvaa-u-Jvov Description of Procedure Anesthesia Type: MAC Estimated blood loss (mL): minimal Specimen(s) collected/removed none Description of the Procedure Indication for the procedure: This gentleman has completed systemic therapy to manage Non-Hodgkin's lymphoma. Having discussed with his oncologist, he came in to have his Ydgwnd-k-Eldo removed. Informed consent was obtained after reviewing the procedure in detail. Description of the procedure: He was placed supine on the operative table and our WATER METER READER administered sedation, monitoring his vital signs. Ancef was administered intravenously as prophylaxis against wound infection. Left infraclavicular fossa was and draped in the usual sterile manner. Local anesthesia was achieved using 0.5 percent Marcaine with epinephrine. A secondary incision was made along the previous scar and the Kyxoyo-o-Owqa removed without nursing air embolism. The incision was then closed using 3-0 Vicryl for the subcutaneous tissue and 4-0 Vicryl for skin, in a subcuticular fashion. Steri-Strips were then applied. He tolerated the procedure well and was taken back to the nursing area in a stable condition. Findings of the Procedure See op report Allergies and Home Medications Allergies Coded Allergies: sulfamethoxazole (Verified Allergy, Unknown, 10/07/08) trimethoprim (Verified Allergy, Unknown, 10/07/08) Home Medications Amlodipine Besylate 5 Mg Tablet, 5 MG PO DAILY, (Reported) Aspirin 81 Mg Tablet.dr, 81 MG PO DAILY, (Reported) Fenofibrate,Micronized 134 Mg Capsule, 134 MG PO DAILY, (Reported) Metformin HCl 500 Mg Tablet, 1,000 MG PO BID, (Reported) take 2 (500mg) tabs Metoprolol Tartrate 50 Mg Tablet, 50 MG PO BID, (Reported) Rosuvastatin Calcium 5 Mg Tablet, 5 MG PO HS, (Reported) Patient Home Medication List Home Medication List Reviewed: Yes BEAN PEOPLES MD Aug 07, 2018 09:40
[2018-08-07] MEDS ORDERED: TRAM50TA2 PO (09:41)
--- NOTE | 2018-08-07 09:41 | Discharge Inst-Simple/Standard ---
Discharge Inst-Standard Discharge Medications New, Converted or Re-Newed RX: RX on Chart Patient Instructions/Follow Up Plan of Care/Instructions/FU: May shower. To call if any concerns arise Activity as Tolerated: Yes Discharge Diet: No Restrictions BEAN PEOPLES MD Aug 07, 2018 09:41
[2018-08-07] MEDS ORDERED: HYDROmorphone 2 MG/ML VIAL (DILAUDID) IV ONE (09:45)
[2018-08-07] MEDS ORDERED: ONDANSETRON 4 MG/2 ML (SDV) Z0FRAN IVP PRN (09:45)
[2018-08-07 10:05] VITALS: BP 127/64
[2018-08-07 10:35] VITALS: BP 140/88
--- NOTE | 2018-08-07 12:15 | Anesthesia-General Post-Op ---
General Patient Condition Mental Status/LOC: Same as Preop Cardiovascular: Satisfactory Nausea/Vomiting: Absent Respiratory: Satisfactory Pain: Controlled Complications: Absent Post Op Complications Complications None Follow Up Care/Instructions Patient Instructions None needed. Anesthesia/Patient Condition Patient Condition Patient is doing well, no complaints, stable vital signs, no apparent adverse anesthesia problems. No complications reported per nursing. ASHLEY CUEVAS CRNA Aug 07, 2018 12:15
== END 2018-08-07 10:35 | disposition home or self-care (01) ==
LOC: SDC 07:51
PROVIDERS: ATTEND Surgery
DX: Z08 Encounter for follow-up examination after completed treatment for malignant neoplasm (principal); C85.90 Non-Hodgkin lymphoma, unspecified, unspecified site; I25.10 Atherosclerotic heart disease of native coronary artery without angina pectoris; I10 Essential (primary) hypertension; E11.9 Type 2 diabetes mellitus without complications; Z95.5 Presence of coronary angioplasty implant and graft; Z87.891 Personal history of nicotine dependence; Z79.82 Long term (current) use of aspirin; Z79.84 Long term (current) use of oral hypoglycemic drugs; Z79.899 Other long term (current) drug therapy
CPT/HCPCS: 82962; 87081

== ENCOUNTER 2018-10-26 09:21 | Outpatient (RCR) | payer MEDICARE, OTHER ==
[~2018-10-26 09:21] MED LIST changes: -AMLO5TAB7 PO; +AMLO5TAB9 PO; +TRAM50TA2 PO
[2018-10-26 09:45] LABS: BASOPHILS % (AUTO) 0 % (0-10); EOSINOPHILS # (AUTO) 0.1 10^3/uL (0.0-0.3); EOSINOPHILS % (AUTO) 1 % (0-10); HEMATOCRIT 43 % (40-54); HEMOGLOBIN 15.2 G/DL (13.3-17.7); LYMPHOCYTES # (AUTO) 1.3 X 10^3 (1.0-4.0); LYMPHOCYTES % (AUTO) 21 % (12-44); MEAN CORPUSCULAR HEMOGLOBIN 31 PG (25-34); MEAN CORPUSCULAR HGB CONC 35 G/DL (32-36); MEAN CORPUSCULAR VOLUME 89 FL (80-99); MEAN PLATELET VOLUME 10.2 FL (7.4-10.4); MONOCYTES # (AUTO) 0.6 X 10^3 (0.0-1.0); MONOCYTES % (AUTO) 10 % (0-12); NEUTROPHILS # (AUTO) 4.1 X 10^3 (1.8-7.8); NEUTROPHILS % (AUTO) 68 % (42-75); PLATELET COUNT 247 10^3/uL (130-400); RED CELL DISTRIBUTION WIDTH 13.3 % (10.0-14.5)
[2018-10-26 10:01] LABS: ALANINE AMINOTRANSFERASE 33 U/L (0-55); ALBUMIN 4.3 GM/DL (3.2-4.5); ALKALINE PHOSPHATASE 59 U/L (40-136); BILIRUBIN,TOTAL 0.5 MG/DL (0.1-1.0); BUN/CREATININE RATIO 12; CARBON DIOXIDE 21 MMOL/L (21-32); CHLORIDE 108 MMOL/L (98-107); CREATININE SERUM 0.93 MG/DL (0.60-1.30); GFR ESTIMATED > 60; GLUCOSE 123 MG/DL (70-105); POTASSIUM 4.4 MMOL/L (3.6-5.0); SODIUM 139 MMOL/L (135-145); TOTAL PROTEIN 6.8 GM/DL (6.4-8.2)
== END 2018-10-28 | disposition home or self-care (01) ==
LOC: ONC 09:21
PROVIDERS: ATTEND Internal Medicine Hematology & Oncology
DX: C83.38 Diffuse large B-cell lymphoma, lymph nodes of multiple sites (principal); I25.10 Atherosclerotic heart disease of native coronary artery without angina pectoris; I10 Essential (primary) hypertension; E11.9 Type 2 diabetes mellitus without complications; E78.5 Hyperlipidemia, unspecified; Z79.84 Long term (current) use of oral hypoglycemic drugs; Z79.899 Other long term (current) drug therapy; Z95.5 Presence of coronary angioplasty implant and graft; Z87.891 Personal history of nicotine dependence
CPT/HCPCS: 36415; 80053; 83615; 85025; 99213

== ENCOUNTER → 2018-11-11 | Outpatient (CLI) | payer MEDICARE, OTHER ==
[2018-11-11 08:19] LABS: ALANINE AMINOTRANSFERASE 33 U/L (0-55); ALBUMIN 4.2 GM/DL (3.2-4.5); ALKALINE PHOSPHATASE 60 U/L (40-136); BILIRUBIN,TOTAL 0.5 MG/DL (0.1-1.0); BUN/CREATININE RATIO 17; CALCIUM 9.4 MG/DL (8.5-10.1); CARBON DIOXIDE 20 MMOL/L (21-32); CHLORIDE 111 MMOL/L (98-107); CHOLESTEROL 122 MG/DL (< 200); CREATININE SERUM 0.89 MG/DL (0.60-1.30); GFR ESTIMATED > 60; GLUCOSE 133 MG/DL (70-105); HDL CHOLESTEROL 38 MG/DL (40-60); POTASSIUM 4.1 MMOL/L (3.6-5.0); SODIUM 142 MMOL/L (135-145); TOTAL PROTEIN 6.8 GM/DL (6.4-8.2); TRIGLYCERIDES 150 MG/DL (<150); VLDL CHOLESTEROL 30 MG/DL (5-40)
== END ==
LOC: LAB 07:46
PROVIDERS: ATTEND Nurse Practitioner Family
DX: I25.10 Atherosclerotic heart disease of native coronary artery without angina pectoris (principal); E78.5 Hyperlipidemia, unspecified
CPT/HCPCS: 36415; 80053; 80061

== ENCOUNTER 2019-02-08 13:49 | Outpatient (RCR) | payer MEDICARE, OTHER ==
[2019-02-01 09:48] LABS: BASOPHILS % (AUTO) 0 % (0-10); EOSINOPHILS # (AUTO) 0.1 10^3/uL (0.0-0.3); EOSINOPHILS % (AUTO) 2 % (0-10); HEMATOCRIT 45 % (40-54); HEMOGLOBIN 15.3 G/DL (13.3-17.7); LYMPHOCYTES % (AUTO) 18 % (12-44); MEAN CORPUSCULAR HEMOGLOBIN 31 PG (25-34); MEAN CORPUSCULAR HGB CONC 34 G/DL (32-36); MEAN CORPUSCULAR VOLUME 90 FL (80-99); MEAN PLATELET VOLUME 9.9 FL (7.4-10.4); MONOCYTES # (AUTO) 0.5 X 10^3 (0.0-1.0); MONOCYTES % (AUTO) 9 % (0-12); NEUTROPHILS % (AUTO) 70 % (42-75); PLATELET COUNT 274 10^3/uL (130-400); WHITE BLOOD COUNT 5.6 10^3/uL (4.3-11.0)
[2019-02-01 10:07] LABS: ALANINE AMINOTRANSFERASE 28 U/L (0-55); ALBUMIN 4.4 GM/DL (3.2-4.5); ALKALINE PHOSPHATASE 59 U/L (40-136); BILIRUBIN,TOTAL 0.4 MG/DL (0.1-1.0); BUN/CREATININE RATIO 11; CALCIUM 9.5 MG/DL (8.5-10.1); CARBON DIOXIDE 25 MMOL/L (21-32); CHLORIDE 108 MMOL/L (98-107); CREATININE SERUM 0.87 MG/DL (0.60-1.30); GFR ESTIMATED > 60; GLUCOSE 141 MG/DL (70-105); POTASSIUM 4.1 MMOL/L (3.6-5.0); SODIUM 142 MMOL/L (135-145)
[~2019-02-08 13:49] MED LIST changes: -ROSU20TA31 PO; +ROSU20TA32 PO
== END 2019-05-02 | disposition home or self-care (01) ==
LOC: ONC 13:49
PROVIDERS: ATTEND Internal Medicine Hematology & Oncology
DX: C83.38 Diffuse large B-cell lymphoma, lymph nodes of multiple sites (principal); I25.10 Atherosclerotic heart disease of native coronary artery without angina pectoris; I10 Essential (primary) hypertension; E11.9 Type 2 diabetes mellitus without complications; E78.5 Hyperlipidemia, unspecified; Z79.84 Long term (current) use of oral hypoglycemic drugs; Z79.899 Other long term (current) drug therapy; Z95.5 Presence of coronary angioplasty implant and graft; Z87.891 Personal history of nicotine dependence
CPT/HCPCS: 36415; 80053; 83615; 85025; 99213

== ENCOUNTER → 2019-05-03 | Outpatient (CLI) | payer MEDICARE, OTHER ==
[~2019-05-03] MED LIST changes: +BARIUM SUSPENSION 2.1% (VANILLA SILQ) 450 ML PO ONE; +CATHETER FLUSH 10 ML SYR IV PRN; +HOLD METFORMIN - RECEIVED CONTRAST 20 ML VIAL IV SCH; +IOHEXOL 350 MG/ML 100 ML (OMNIPAQUE 350) VIAL IV ONE; +NS 100 ML (IVPB) BAG IV ONE
--- NOTE | 2019-05-03 11:54 | Diagnostic Imaging Report ---
INDICATION: Large B-cell lymphoma, follow-up. TECHNIQUE: Pre and postcontrast axial imaging through the abdomen and pelvis was performed. Postcontrast axial imaging through the neck and chest was also performed. COMPARISON: Correlation is made with prior CT from 07/24/2018. FINDINGS: CT neck: Study is somewhat compromised by patient motion artifact. Posterior nasopharynx and oropharynx are unremarkable. Submandibular and parotid glands appear symmetric. No definite cervical lymphadenopathy is seen. No thyroid mass is detected. No fluid collection is seen. Sclerotic lesion within C4 vertebral body is stable. IMPRESSION: Compromised by motion. No acute features seen. Overall appearance appears stable when compared with prior exam from 07/24/2018. CT chest: Enlarged marker lymph node in left axilla laterally measures 2.6 x 2.2 cm compared with 2.3 x 1.5 cm. This lymph node does show a greater amount of central low density which could indicate necrosis. More medially located lymph node measures 1.6 x 1.3 cm compared with 1.8 x 1.3 cm on prior. The right axilla is unremarkable. No mediastinal or hilar lymphadenopathy is detected. No pericardial or pleural fluid is identified. No pulmonary infiltrate, nodule or mass is seen. IMPRESSION: There is mild increase in size of the dominant lymph node in the left axilla since exam from 07/24/2018. This also demonstrates some central low density which may indicate necrosis. No other significant abnormality is seen. CT abdomen and pelvis: Small hyperdense lesion in the right lobe of the liver is stable. There is generalized low density throughout the liver consistent with hepatic steatosis. The gallbladder is unremarkable. No biliary ductal dilatation is seen. The pancreas and spleen are unremarkable. No adrenal mass is detected. Left kidney does contain a tiny nonobstructing calculus. There is no hydronephrosis. Aorta is nonaneurysmal. Bowel loops are normal caliber. Diverticulosis of the sigmoid and descending colon is again seen but no evidence of acute diverticulitis. No fluid collection or free fluid is seen. The bladder is unremarkable. No definite abdominal or pelvic lymphadenopathy is seen. Sclerotic foci in the bony pelvis appears stable. IMPRESSION: Stable CT abdomen and pelvis since study from 07/24/2018. No new abnormality is identified. Dictated by: Dictated on workstation # [id number]
== END ==
LOC: RAD 09:12
PROVIDERS: ATTEND Internal Medicine Hematology & Oncology
DX: C83.38 Diffuse large B-cell lymphoma, lymph nodes of multiple sites (principal)
CPT/HCPCS: 70491; 71260; 74178

== ENCOUNTER 2019-05-06 09:12 | Outpatient (RCR) | payer MEDICARE, OTHER ==
[2019-05-03 09:15] LABS: BASOPHILS % (AUTO) 0 % (0-10); EOSINOPHILS # (AUTO) 0.1 10^3/uL (0.0-0.3); EOSINOPHILS % (AUTO) 2 % (0-10); HEMATOCRIT 44 % (40-54); HEMOGLOBIN 15.2 G/DL (13.3-17.7); LYMPHOCYTES # (AUTO) 1.2 X 10^3 (1.0-4.0); LYMPHOCYTES % (AUTO) 21 % (12-44); MEAN CORPUSCULAR HEMOGLOBIN 31 PG (25-34); MEAN CORPUSCULAR HGB CONC 34 G/DL (32-36); MEAN CORPUSCULAR VOLUME 90 FL (80-99); MONOCYTES # (AUTO) 0.6 X 10^3 (0.0-1.0); MONOCYTES % (AUTO) 9 % (0-12); NEUTROPHILS % (AUTO) 68 % (42-75); PLATELET COUNT 276 10^3/uL (130-400); RED CELL DISTRIBUTION WIDTH 13.1 % (10.0-14.5); WHITE BLOOD COUNT 5.9 10^3/uL (4.3-11.0)
[2019-05-03 09:45] LABS: ALANINE AMINOTRANSFERASE 31 U/L (0-55); ALBUMIN 4.2 GM/DL (3.2-4.5); ALKALINE PHOSPHATASE 61 U/L (40-136); BILIRUBIN,TOTAL 0.3 MG/DL (0.1-1.0); BUN/CREATININE RATIO 11; CALCIUM 9.3 MG/DL (8.5-10.1); CARBON DIOXIDE 25 MMOL/L (21-32); CREATININE SERUM 0.84 MG/DL (0.60-1.30); GFR ESTIMATED > 60; GLUCOSE 116 MG/DL (70-105); TOTAL PROTEIN 6.7 GM/DL (6.4-8.2)
[2019-05-03 09:59] LABS: CHLORIDE 110 MMOL/L (98-107); POTASSIUM 4.5 MMOL/L (3.6-5.0); SODIUM 140 MMOL/L (135-145)
[~2019-05-06 09:12] MED LIST changes: -BARIUM SUSPENSION 2.1% (VANILLA SILQ) 450 ML PO ONE; -CATHETER FLUSH 10 ML SYR IV PRN; -HOLD METFORMIN - RECEIVED CONTRAST 20 ML VIAL IV SCH; -IOHEXOL 350 MG/ML 100 ML (OMNIPAQUE 350) VIAL IV ONE; -NS 100 ML (IVPB) BAG IV ONE
== END 2019-07-13 10:41 | disposition home or self-care (01) ==
LOC: ONC 09:12
PROVIDERS: ATTEND Internal Medicine Hematology & Oncology
DX: C83.30 Diffuse large B-cell lymphoma, unspecified site (principal); I10 Essential (primary) hypertension; E78.5 Hyperlipidemia, unspecified; I25.10 Atherosclerotic heart disease of native coronary artery without angina pectoris; R97.20 Elevated prostate specific antigen [PSA]; R59.0 Localized enlarged lymph nodes; Z92.21 Personal history of antineoplastic chemotherapy
CPT/HCPCS: 36415; 80053; 83615; 85025; 99213

== ENCOUNTER → 2019-05-11 | Outpatient (CLI) | payer MEDICARE, OTHER ==
[2019-05-11 08:32] LABS: ALANINE AMINOTRANSFERASE 30 U/L (0-55); ALBUMIN 4.3 GM/DL (3.2-4.5); ALKALINE PHOSPHATASE 59 U/L (40-136); BILIRUBIN,TOTAL 0.5 MG/DL (0.1-1.0); BUN/CREATININE RATIO 13; CALCIUM 9.7 MG/DL (8.5-10.1); CARBON DIOXIDE 23 MMOL/L (21-32); CHLORIDE 109 MMOL/L (98-107); CHOLESTEROL 116 MG/DL (< 200); CREATININE SERUM 0.88 MG/DL (0.60-1.30); GFR ESTIMATED > 60; GLUCOSE 137 MG/DL (70-105); HDL CHOLESTEROL 37 MG/DL (40-60); POTASSIUM 4.6 MMOL/L (3.6-5.0); SODIUM 142 MMOL/L (135-145); TOTAL PROTEIN 6.8 GM/DL (6.4-8.2); TRIGLYCERIDES 188 MG/DL (<150); VLDL CHOLESTEROL 38 MG/DL (5-40)
== END ==
LOC: LAB 07:50
PROVIDERS: ATTEND Nurse Practitioner Family
DX: I25.10 Atherosclerotic heart disease of native coronary artery without angina pectoris (principal); E78.5 Hyperlipidemia, unspecified
CPT/HCPCS: 36415; 80053; 80061

== ENCOUNTER → 2019-07-13 | Outpatient (CLI) | payer MEDICARE, OTHER ==
--- NOTE | 2019-07-13 15:35 | Diagnostic Imaging Report ---
INDICATION: Large lymph nodes in the left axilla. Patient has a history of lymphoma. TECHNIQUE: Sonographic interrogation of the left axilla was performed. FINDINGS: A hypoechoic solid nodule is noted measuring 1.3 x 1.1 x 1.3 cm. This may represent an enlarged lymph node. A 2nd hypoechoic solid nodule measures 2.3 x 1.4 x 2.1 cm. This too could represent an enlarged lymph node. No other abnormalities are seen. IMPRESSION: Hypoechoic solid masses in the left axilla, perhaps enlarged lymph nodes. No normal lymph node architecture is identified, however. Dictated by: Dictated on workstation # [id number]
== END ==
LOC: RAD 13:38
PROVIDERS: ATTEND Internal Medicine Hematology & Oncology
DX: C83.38 Diffuse large B-cell lymphoma, lymph nodes of multiple sites (principal)
CPT/HCPCS: 76881

== ENCOUNTER 2019-08-09 14:11 | Outpatient (RCR) | payer MEDICARE, OTHER ==
[2019-07-13 11:27] LABS: BASOPHILS % (AUTO) 0 % (0-10); EOSINOPHILS # (AUTO) 0.1 10^3/uL (0.0-0.3); EOSINOPHILS % (AUTO) 1 % (0-10); HEMATOCRIT 42 % (40-54); HEMOGLOBIN 14.3 G/DL (13.3-17.7); LYMPHOCYTES # (AUTO) 1.1 X 10^3 (1.0-4.0); LYMPHOCYTES % (AUTO) 17 % (12-44); MEAN CORPUSCULAR HEMOGLOBIN 30 PG (25-34); MEAN CORPUSCULAR HGB CONC 34 G/DL (32-36); MEAN CORPUSCULAR VOLUME 88 FL (80-99); MONOCYTES # (AUTO) 0.6 X 10^3 (0.0-1.0); MONOCYTES % (AUTO) 10 % (0-12); NEUTROPHILS # (AUTO) 4.4 X 10^3 (1.8-7.8); NEUTROPHILS % (AUTO) 72 % (42-75); PLATELET COUNT 218 10^3/uL (130-400); RED CELL DISTRIBUTION WIDTH 13.4 % (10.0-14.5); WHITE BLOOD COUNT 6.1 10^3/uL (4.3-11.0)
[2019-07-13 11:55] LABS: ALANINE AMINOTRANSFERASE 20 U/L (0-55); ALKALINE PHOSPHATASE 50 U/L (40-136); BILIRUBIN,TOTAL 0.4 MG/DL (0.1-1.0); BUN/CREATININE RATIO 14; CALCIUM 9.5 MG/DL (8.5-10.1); CARBON DIOXIDE 19 MMOL/L (21-32); CHLORIDE 110 MMOL/L (98-107); GFR ESTIMATED > 60; GLUCOSE 104 MG/DL (70-105); POTASSIUM 4.3 MMOL/L (3.6-5.0); SODIUM 140 MMOL/L (135-145); TOTAL PROTEIN 6.5 GM/DL (6.4-8.2)
[~2019-08-09 14:11] MED LIST changes: -TRAM50TA2 PO; +TRM50T PO
== END 2019-10-11 | disposition home or self-care (01) ==
LOC: ONC 14:11
PROVIDERS: ATTEND Internal Medicine Hematology & Oncology
DX: C83.30 Diffuse large B-cell lymphoma, unspecified site (principal); I10 Essential (primary) hypertension; E78.5 Hyperlipidemia, unspecified; I25.10 Atherosclerotic heart disease of native coronary artery without angina pectoris; R97.20 Elevated prostate specific antigen [PSA]; R59.0 Localized enlarged lymph nodes; Z92.21 Personal history of antineoplastic chemotherapy
CPT/HCPCS: 80053; 83615; 85025; 99213

== ENCOUNTER → 2019-11-23 | Outpatient (CLI) | payer MEDICARE, OTHER ==
--- NOTE | 2019-11-23 13:15 | Diagnostic Imaging Report ---
INDICATION: Restage lymphoma. TECHNIQUE: Serum blood glucose level at the time of injection was 133 mg/dL. The patient was administered 15.0 mCi F-18 FDG intravenously in the left antecubital location and PET imaging was performed from the top of skull to mid thighs. Noncontrast CT was also performed for attenuation correction and anatomic correlation. COMPARISON: Correlation is made with prior CT study from 05/03/2019 as well as prior PET/CT study from 11/26/2016. FINDINGS: There is symmetric activity throughout the brain. Soft tissues of the neck are unremarkable. There are numerous hypermetabolic enlarged lymph nodes in the left axilla. An aggregate of nodes measure approximately 6.5 x 2.6 cm. SUV max is approximately 12.3. The right axilla is unremarkable. The mediastinum and darrel are unremarkable. The pulmonary parenchyma is unremarkable. Abdomen and pelvis demonstrate physiologic activity throughout the gastrointestinal and genitourinary tract. No suspicious hypermetabolism is detected. IMPRESSION: Hypermetabolic left axillary lymphadenopathy, new since prior PET/CT study from 11/26/2016. There were enlarged lymph nodes in the left axilla on recent CT from 05/03/2019, however, adenopathy in the left axilla does appear to be progressed since that time. No other suspicious regions of hypermetabolism are identified. Dictated by: Dictated on workstation # [id number]
== END ==
LOC: RAD 07:42
PROVIDERS: ATTEND Internal Medicine Hematology & Oncology
DX: C83.38 Diffuse large B-cell lymphoma, lymph nodes of multiple sites (principal)

== ENCOUNTER 2019-12-06 08:55 | Outpatient (RCR) | payer MEDICARE, OTHER | END 2019-12-06 16:00 | disposition home or self-care (01) | LOC: PREOP 08:55 | PROVIDERS: ATTEND Surgery | DX: Z01.818 Encounter for other preprocedural examination (principal) ==

== ENCOUNTER → 2019-12-10 | Day surgery (SDC) | payer MEDICARE, OTHER ==
[~2019-12-10] VITALS: Ht 172.7 cm; Wt 79.5 kg
[~2019-12-10] MED LIST changes: +LIDOCAINE 1% INJ 20 ML 20 ML VIAL INJ ONE; +LIDOCAINE 1% INJ 20 ML 20 ML VIAL ONE
--- OUTSIDE RECORDS SUMMARY | 2019-12-10 09:01 | XMS REPORT | Continuity of Care Document ---
Author Organization Unknown Address Unknown Phone Unavailable Allergies Active Description Code Type Severity Reaction Onset Reported/Identified Relationship to Patient Clinical Status Yes sulfamethoxazole [id number] Drug Allergy Unknown N/A 10/07/2008 Yes trimethoprim [id number] Drug Allergy Unknown N/A 10/07/2008 Medications There is no data. Problems Date Dx Coded Attending Type Code Diagnosis Diagnosed By ROXI DUNLAP Ot C83.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, LYMPH NOD RXOI DUNLAP Ot E11.9 TYPE 2 DIABETES MELLITUS WITHOUT COMPLIC ROXI DUNLAP Ot E78.5 HYPERLIPIDEMIA, UNSPECIFIED ROXI DUNLAP Ot I10 ESSENTIAL (PRIMARY) HYPERTENSION ROXI DUNLAP Ot I25.10 ATHSCL HEART DISEASE OF [place] CORONARY ROXI DUNLAP Ot Z79.84 RELIABILITY TECHNICIAN (CURRENT) USE OF ORAL HYPOGLYC ROXI DUNLAP Ot Z79.899 OTHER DETENTION (CURRENT) DRUG THERAPY ROXI DUNLAP Ot Z87.891 PERSONAL HISTORY OF NICOTINE DEPENDENCE ROXI DUNLAP Ot Z95.5 PRESENCE OF CORONARY ANGIOPLASTY IMPLANT 06/26/1040 ROXI DUNLAP Ot C83.30 DIFFUSE LARGE B-CELL LYMPHOMA, UNSPECIFI 06/26/1040 ROXI DUNLAP Ot E78.5 HYPERLIPIDEMIA, UNSPECIFIED 06/26/1040 ROXI DUNLAP N Ot I10 ESSENTIAL (PRIMARY) HYPERTENSION 06/26/1040 ROXI DUNLAP N Ot I25.10 ATHSCL HEART DISEASE OF [place] CORONARY 06/26/1040 ROXI DUNLAP Ot R59.0 LOCALIZED ENLARGED LYMPH NODES 06/26/1040 ROXI DUNLAP Ot R97.20 ELEVATED PROSTATE SPECIFIC ANTIGEN [PSA] 06/26/1040 ORXI DUNLAP Ot Z92.21 PERSONAL HISTORY OF ANTINEOPLASTIC CHEMO 06/26/1224 NATASHA LEAHY MD, Ot C83.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, LYMPH NOD 06/26/1224 NATASHA LEAHY MD Ot E11.9 TYPE 2 DIABETES MELLITUS WITHOUT COMPLIC 06/26/1224 NATASHA LEAHY MD Ot I10 ESSENTIAL (PRIMARY) HYPERTENSION 06/26/1224 NATASHA LEAHY MD Ot M51.34 OTHER INTERVERTEBRAL DISC DEGENERATION, 06/26/1224 NATASHA LEAHY MD Ot Z92.21 PERSONAL HISTORY OF ANTINEOPLASTIC CHEMO 06/26/1224 NATASHA LEAHY MD Ot Z98.1 ARTHRODESIS STATUS 06/26/1546 NATASHA LEAHY MD, Ot C83.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, LYMPH NOD 06/26/1546 NATASHA LEAHY MD, Ot 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 06/26/1546 NATASHA LEAHY MD, Ot E11.9 TYPE 2 DIABETES MELLITUS WITHOUT COMPLIC 06/26/1546 NATASHA LEAHY MD, Ot E78.5 HYPERLIPIDEMIA, UNSPECIFIED 06/26/1546 NATASHA LEAHY MD Ot I10 ESSENTIAL (PRIMARY) HYPERTENSION 06/26/1546 NATASHA LEAHY MD Ot I25.10 ATHSCL HEART DISEASE OF [place] CORONARY 06/26/1546 NATASHA LEAHY MD, Ot T45.1X5 A ADVERSE EFFECT OF ANTINEOPLASTIC AND IMM 06/26/1546 NATASHA LEAHY MD Ot Z79.84 DETENTION (CURRENT) USE OF ORAL HYPOGLYC 06/26/1546 NATASHA LEAHY MD, Ot Z79.899 OTHER RELIABILITY TECHNICIAN (CURRENT) DRUG THERAPY 06/26/1546 NATASHA LAEHY MD Ot Z87.891 PERSONAL HISTORY OF NICOTINE [...] 414.01 08/05/2010 Ot 415.19 11/28/2010 Ot 272.4 HYPE RLIPIDEMIA NEC/NOS 11/28/2010 Ot 401.9 HYPE RTENSION NOS 11/28/2010 Ot 414.01 COR ONARY ATHEROSCLEROSIS OF [place] CORON 11/28/2010 Ot 415.19 OTH PULMON EMBOLISM/INFARCT 05/25/2012 Ot 211.4 RE GN NEOPL RECTUM/ANUS 05/25/2012 Ot 250.00 DOUG B DRISS WO COMPL, TYPE II OR UNSPEC TY 05/25/2012 Ot 272.0 PURE HYPERCHOLESTEROLEM 05/25/2012 Ot 401.9 HYPE RTENSION NOS 05/25/2012 Ot 414.01 COR ONARY ATHEROSCLEROSIS OF [place] CORON 05/25/2012 Ot 562.10 DIV ERTICULOSIS COLON (W/O MENT OF HEMORR 05/25/2012 Ot V45.82 PER CUTANEOUS TRANSLUM CORON ANGIOPLASTY 05/25/2012 Ot V58.63 BRANDON G- TERM(CURRENT)USE OF ANTIPLATELET/AN 05/25/2012 Ot V58.69 OTH MED,LT,CURRENT USE 05/25/2012 Ot V76.51 SCR EEN MAL NEOP- COLON 06/05/2012 Ot 250.00 DOUG B DRISS WO COMPL, TYPE II OR UNSPEC TY 06/05/2012 Ot 272.4 HYPE RLIPIDEMIA NEC/NOS 06/05/2012 Ot 401.9 HYPE RTENSION NOS 06/05/2012 Ot 414.01 COR ONARY ATHEROSCLEROSIS OF [place] CORON 06/05/2012 Ot 562.10 DIV ERTICULOSIS COLON (W/O MENT OF HEMORR 06/05/2012 Ot 998.11 HEM OR COMPLIC A PROCEDURE 06/05/2012 Ot V45.82 PER CUTANEOUS TRANSLUM CORON ANGIOPLASTY 06/05/2012 Ot V58.61 ANTICOAGULANTS,LT,CURRENT USE 06/05/2012 Ot V58.63 BRANDON G- TERM(CURRENT)USE OF ANTIPLATELET/AN 06/05/2012 Ot V58.66 BRANDON G-TERM (CURRENT) USE OF ASPIRIN 06/09/2014 LARRY KUO DO Ot 241.0 06/21/2014 LARRY KUO DO Ot 241.0 09/22/2014 BAIMAAPRIL PROFESSOR OF BIOCHEMISTRY Ot 272.4 09/22/2014 KASANDRAAPRIL US PROFESSOR OF BIOCHEMISTRY Ot 414.00 03/17/2015 Ot 433.10 03/17/2015 Ot [...] 03/17/2015 Ot V45.82 03/17/2015 VICTOR M FERRARI FACC, ADONAY FACP CCDS Ot 272.4 03/17/2015 VICTOR M FERRARI FACC, ALI FACP CCDS Ot 414.01 03/17/2015 VICTOR M FERRARI FACC, ALI FACP CCDS Ot V58.69 03/17/2015 BAIMA, APRIL L PROFESSOR OF BIOCHEMISTRY Ot 272.4 03/17/2015 BAIMA, APRIL L PROFESSOR OF BIOCHEMISTRY Ot 401.9 03/17/2015 BAIMA, APRIL L PROFESSOR OF BIOCHEMISTRY Ot 414.01 03/17/2015 BAIMA, APRIL L PROFESSOR OF BIOCHEMISTRY Ot 272.4 03/17/2015 BAIMA, APRIL L PROFESSOR OF BIOCHEMISTRY Ot V58.69 03/17/2015 BAIMA, APRIL L PROFESSOR OF BIOCHEMISTRY Ot 272.4 03/17/2015 BAIMA, APRIL L PROFESSOR OF BIOCHEMISTRY Ot 414.00 03/17/2015 BAIMA, APRIL L PROFESSOR OF BIOCHEMISTRY Ot 272.4 03/17/2015 BAIMA, APRIL L PROFESSOR OF BIOCHEMISTRY Ot 414.00 03/17/2015 BAIMA, APRIL L PROFESSOR OF BIOCHEMISTRY Ot 447.9 03/17/2015 LARRY KUO DO A Ot 241.0 03/17/2015 BAIMA, APRIL L PROFESSOR OF BIOCHEMISTRY Ot 272.4 03/17/2015 BAIMA, APRIL L PROFESSOR OF BIOCHEMISTRY Ot 414.00 03/21/2015 BAIMA, APRIL L PROFESSOR OF BIOCHEMISTRY Ot 272.4 03/24/2015 BAIMA, APRIL L PROFESSOR OF BIOCHEMISTRY Ot 272.4 04/06/2015 BAIMA, APRIL L PROFESSOR OF BIOCHEMISTRY Ot 272.4 07/05/2015 VENKAT NELSON MD Ot [...] 09/15/2015 Ot V45.82 09/15/2015 VICTOR M FERRARI FAC, ALI FACP CCDS Ot 272.4 09/15/2015 VICTOR M FERRARI FAC, ALI FACP CCDS Ot 414.01 09/15/2015 VICTOR M FERRARI FAC, ALI FACP CCDS Ot V58.69 09/15/2015 BAIMA, APRIL L PROFESSOR OF BIOCHEMISTRY Ot 272.4 09/15/2015 BAIMA, APRIL L PROFESSOR OF BIOCHEMISTRY Ot 401.9 09/15/2015 BAIMA, APRIL L PROFESSOR OF BIOCHEMISTRY Ot 414.01 09/15/2015 BAIMA, APRIL L PROFESSOR OF BIOCHEMISTRY Ot 272.4 09/15/2015 BAIMA, APRIL L PROFESSOR OF BIOCHEMISTRY Ot V58.69 09/15/2015 BAIMA, APRIL L PROFESSOR OF BIOCHEMISTRY Ot 272.4 09/15/2015 BAIMA, APRIL L PROFESSOR OF BIOCHEMISTRY Ot 414.00 09/15/2015 BAIMA, APRIL L PROFESSOR OF BIOCHEMISTRY Ot 272.4 09/15/2015 BAIMA, APRIL L PROFESSOR OF BIOCHEMISTRY Ot 414.00 09/15/2015 BAIMA, APRIL L PROFESSOR OF BIOCHEMISTRY Ot 447.9 09/15/2015 LARRY KUO DO Ot 241.0 09/15/2015 BAIMA, APRIL L PROFESSOR OF BIOCHEMISTRY Ot 272.4 09/15/2015 BAIMA, APRIL L PROFESSOR OF BIOCHEMISTRY Ot 414.00 09/15/2015 BAIMA, APRIL L PROFESSOR OF BIOCHEMISTRY Ot 272.4 09/15/2015 LESLIE FERRARI, VENKAT A Ot C61 10/09/2015 APRIL BARRON PROFESSOR OF BIOCHEMISTRY Ot E78.5 10/09/2015 APRIL BARRON PROFESSOR OF BIOCHEMISTRY Ot I25.10 03/15/2016 Ot 272.4 HYPE RLIPIDEMIA NEC/NOS 03/15/2016 Ot 401.9 HYPE RTENSION NOS 03/15/2016 Ot 414.01 COR ONARY ATHEROSCLEROSIS OF [place] CORON 03/15/2016 Ot V58.69 OTH MED,LT,CURRENT USE 03/15/2016 Ot 272.4 HYPE RLIPIDEMIA NEC/NOS 03/15/2016 Ot 401.9 HYPE RTENSION NOS 03/15/2016 Ot 414.01 COR ONARY ATHEROSCLEROSIS OF [place] CORON 03/15/2016 Ot 415.19 OTH PULMON EMBOLISM/INFARCT 03/15/2016 Ot V12.51 HX- VENOUS THROMBOSIS EMBOLISM 03/15/2016 Ot 272.4 HYPE RLIPIDEMIA NEC/NOS 03/15/2016 Ot 401.9 HYPE RTENSION NOS 03/15/2016 Ot 414.00 COR ON ATHEROSCLER NOS TYPE VESSEL, NATIV 03/15/2016 Ot V58.69 OTH MED,LT,CURRENT USE 03/15/2016 Ot 272.4 HYPE RLIPIDEMIA NEC/NOS 03/15/2016 Ot 401.9 HYPE RTENSION NOS 03/15/2016 Ot 414.00 COR ON ATHEROSCLER NOS TYPE VESSEL, NATIV 03/15/2016 Ot V58.69 OTH MED,LT,CURRENT USE 03/15/2016 Ot 272.4 HYPE RLIPIDEMIA NEC/NOS 03/15/2016 Ot 401.9 HYPE RTENSION NOS 03/15/2016 Ot V58.69 OTH MED,LT,CURRENT USE 03/15/2016 Ot V72.84 EXA M PRE- OPERATIVE NOS 03/15/2016 Ot 272.4 HYPE RLIPIDEMIA NEC/NOS 03/15/2016 Ot 414.00 COR ON ATHEROSCLER NOS TYPE VESSEL, NATIV 03/15/2016 Ot V58.69 OTH MED,LT,CURRENT USE 03/15/2016 Ot 241.0 NONT OX UNINODULAR GOITER 03/15/2016 Ot 240.9 GOIT ER NOS 03/15/2016 Ot 241.0 NONT OX UNINODULAR GOITER 03/15/2016 Ot 272.4 HYPE RLIPIDEMIA NEC/NOS 03/15/2016 Ot 401.9 HYPE RTENSION NOS 03/15/2016 Ot 414.00 COR ON ATHEROSCLER NOS TYPE VESSEL, NATIV 03/15/2016 Ot V58.69 OTH MED,LT,CURRENT USE 03/15/2016 Ot 414.00 COR ON ATHEROSCLER NOS TYPE VESSEL, NATIV 03/15/2016 Ot V45.82 PER CUTANEOUS TRANSLUM CORON ANGIOPLASTY 03/15/2016 VICTOR M FERRARI FAC, ALI FACP CCDS Ot 272.4 HYPERLIPIDEMIA NEC/NOS 03/15/2016 VICTOR M FERRARI FACC, ALI FACP CCDS Ot 414.01 CORONARY ATHEROSCLEROSIS OF [place] CORON 03/15/2016 VICTOR M FERRARI [facility], ALI FAC CCDS Ot V58.69 OTH MED,LT,CURRENT USE 03/15/2016 BAIMA, APRIL L PROFESSOR OF BIOCHEMISTRY Ot 272.4 HYPERLIPIDEMIA NEC/NOS 03/15/2016 BAIMA, APRIL L PROFESSOR OF BIOCHEMISTRY Ot 401.9 HYPERTENSION NOS 03/15/2016 BAIMA, APRIL L PROFESSOR OF BIOCHEMISTRY Ot 414.01 CORONARY ATHEROSCLEROSIS OF [place] CORON 03/15/2016 BAIMA, APRIL L PROFESSOR OF BIOCHEMISTRY Ot 272.4 HYPERLIPIDEMIA NEC/NOS 03/15/2016 BAIMA, APRIL L PROFESSOR OF BIOCHEMISTRY Ot V58.69 OTH MED,LT,CURRENT USE 03/15/2016 BAIMA, APRIL L PROFESSOR OF BIOCHEMISTRY Ot 272.4 HYPERLIPIDEMIA NEC/NOS 03/15/2016 BAIMA, APRIL L PROFESSOR OF BIOCHEMISTRY Ot 414.00 CORON ATHEROSCLER NOS TYPE VESSEL, NATIV 03/15/2016 BAIMA, APRIL L PROFESSOR OF BIOCHEMISTRY Ot 272.4 HYPERLIPIDEMIA NEC/NOS 03/15/2016 BAIMA, APRIL L PROFESSOR OF BIOCHEMISTRY Ot 414.00 CORON ATHEROSCLER NOS TYPE VESSEL, NATIV 03/15/2016 BAIMA, APRIL L PROFESSOR OF BIOCHEMISTRY Ot 447.9 ARTERIAL DISEASE NOS 03/15/2016 LARRY KUO DO A Ot 241.0 NONTOX UNINODULAR GOITER 03/15/2016 BAIMA, APRIL L PROFESSOR OF BIOCHEMISTRY Ot 272.4 HYPERLIPIDEMIA NEC/NOS 03/15/2016 BAIMA, APRIL L PROFESSOR OF BIOCHEMISTRY Ot 414.00 CORON ATHEROSCLER NOS TYPE VESSEL, NATIV 03/15/2016 BAIMA, APRIL L PROFESSOR OF BIOCHEMISTRY Ot 272.4 HYPERLIPIDEMIA NEC/NOS 03/15/2016 LESLIE FERRARI, VENKAT Wiley Ot C61 MALIGNANT NEOPLASM OF PROSTATE 03/15/2016 BAIMA, APRIL L PROFESSOR OF BIOCHEMISTRY Ot E78.5 HYPERLIPIDEMIA, UNSPECIFIED 03/15/2016 BAIMA, APRIL L PROFESSOR OF BIOCHEMISTRY Ot I25.10 ATHSCL HEART DISEASE OF [place] CORONARY 03/15/2016 BAIMA, APRIL L PROFESSOR OF BIOCHEMISTRY Ot I25.10 ATHSCL HEART DISEASE OF [place] CORONARY 03/19/2016 BAIMAAPRIL L PROFESSOR OF BIOCHEMISTRY Ot E78.5 HYPERLIPIDEMIA, UNSPECIFIED 03/19/2016 BAIMAHOLLISAPRIL L PROFESSOR OF BIOCHEMISTRY Ot I25.10 ATHSCL HEART DISEASE OF [place] CORONARY 04/05/2016 BAIMA, APRIL L PROFESSOR OF BIOCHEMISTRY Ot E78.5 HYPERLIPIDEMIA, UNSPECIFIED 04/05/2016 BAIMA, APRIL L PROFESSOR OF BIOCHEMISTRY Ot I25.10 ATHSCL HEART DISEASE OF [place] CORONARY 05/07/2016 Ot 272.4 HYPE RLIPIDEMIA NEC/NOS 05/07/2016 Ot 401.9 HYPE RTENSION NOS 05/07/2016 Ot 414.01 COR ONARY ATHEROSCLEROSIS OF [place] CORON 05/07/2016 Ot 415.19 OTH PULMON EMBOLISM/INFARCT 05/07/2016 Ot V12.51 HX- VENOUS THROMBOSIS EMBOLISM 05/07/2016 Ot 272.4 HYPE RLIPIDEMIA NEC/NOS 05/07/2016 Ot 401.9 HYPE RTENSION NOS 05/07/2016 Ot 414.00 COR ON ATHEROSCLER NOS TYPE VESSEL, NATIV 05/07/2016 Ot V58.69 OTH MED,LT,CURRENT USE 05/07/2016 Ot 272.4 HYPE RLIPIDEMIA NEC/NOS 05/07/2016 Ot 401.9 HYPE RTENSION NOS 05/07/2016 Ot 414.00 COR ON ATHEROSCLER NOS TYPE VESSEL, NATIV 05/07/2016 Ot V58.69 OTH MED,LT,CURRENT USE 05/07/2016 Ot 272.4 HYPE RLIPIDEMIA NEC/NOS 05/07/2016 Ot 401.9 HYPE RTENSION NOS 05/07/2016 Ot V58.69 OTH MED,LT,CURRENT USE 05/07/2016 Ot V72.84 EXA M PRE- OPERATIVE NOS 05/07/2016 Ot 272.4 HYPE RLIPIDEMIA NEC/NOS 05/07/2016 Ot 414.00 COR ON ATHEROSCLER NOS TYPE VESSEL, NATIV 05/07/2016 Ot V58.69 OTH MED,LT,CURRENT USE 05/07/2016 Ot 241.0 NONT OX UNINODULAR GOITER 05/07/2016 Ot 240.9 GOIT ER NOS 05/07/2016 Ot 241.0 NONT OX UNINODULAR GOITER 05/07/2016 Ot 272.4 HYPE RLIPIDEMIA NEC/NOS 05/07/2016 Ot 401.9 HYPE RTENSION NOS 05/07/2016 Ot 414.00 COR ON ATHEROSCLER NOS TYPE VESSEL, NATIV 05/07/2016 Ot V58.69 OTH MED,LT,CURRENT USE 05/07/2016 Ot 414.00 COR ON ATHEROSCLER NOS TYPE VESSEL, NATIV 05/07/2016 Ot V45.82 PER CUTANEOUS TRANSLUM CORON ANGIOPLASTY 05/07/2016 VICTOR M FERRARI FACKailash, ALI FACP CCDS Ot 272.4 HYPERLIPIDEMIA NEC/NOS 05/07/2016 VICTOR M FERRARI FACC, ALI FACP CCDS Ot 414.01 CORONARY ATHEROSCLEROSIS OF [place] CORON 05/07/2016 VICTOR M FERRARI FACC, ALI FACP CCDS Ot V58.69 OTH MED,LT,CURRENT USE 05/07/2016 BAIMA, APRIL L PROFESSOR OF BIOCHEMISTRY Ot 272.4 HYPERLIPIDEMIA NEC/NOS 05/07/2016 BAIMA, APRIL L PROFESSOR OF BIOCHEMISTRY Ot 401.9 HYPERTENSION NOS 05/07/2016 BAIMA, APRIL L PROFESSOR OF BIOCHEMISTRY Ot 414.01 CORONARY ATHEROSCLEROSIS OF [place] CORON 05/07/2016 BAIMA, APRIL L PROFESSOR OF BIOCHEMISTRY Ot 272.4 HYPERLIPIDEMIA NEC/NOS 05/07/2016 BAIMA, APRIL L PROFESSOR OF BIOCHEMISTRY Ot V58.69 OTH MED,LT,CURRENT USE 05/07/2016 BAIMA, APRIL L PROFESSOR OF BIOCHEMISTRY Ot 272.4 HYPERLIPIDEMIA NEC/NOS 05/07/2016 BAIMA, APRIL L PROFESSOR OF BIOCHEMISTRY Ot 414.00 CORON ATHEROSCLER NOS TYPE VESSEL, NATIV 05/07/2016 BAIMA, APRIL L PROFESSOR OF BIOCHEMISTRY Ot 272.4 HYPERLIPIDEMIA NEC/NOS 05/07/2016 BAIMA, APRIL L PROFESSOR OF BIOCHEMISTRY Ot 414.00 CORON ATHEROSCLER NOS TYPE VESSEL, NATIV 05/07/2016 BAIMA, APRIL L PROFESSOR OF BIOCHEMISTRY Ot 447.9 ARTERIAL DISEASE NOS 05/07/2016 LARRY KUO DO Ot 241.0 NONTOX UNINODULAR GOITER 05/07/2016 BAIMA, APRIL L PROFESSOR OF BIOCHEMISTRY Ot 272.4 HYPERLIPIDEMIA NEC/NOS 05/07/2016 BAIMA, APRIL L PROFESSOR OF BIOCHEMISTRY Ot 414.00 CORON ATHEROSCLER NOS TYPE VESSEL, NATIV 05/07/2016 BEATRICEAPRIL PROFESSOR OF BIOCHEMISTRY Ot 272.4 HYPERLIPIDEMIA NEC/NOS 05/07/2016 LESLIE FERRARI, VENKAT Wiley Ot C61 MALIGNANT NEOPLASM OF PROSTATE 05/07/2016 KASANDRAAPRIL US PROFESSOR OF BIOCHEMISTRY Ot E78.5 HYPERLIPIDEMIA, UNSPECIFIED 05/07/2016 BAIMA, APRIL L PROFESSOR OF BIOCHEMISTRY Ot I25.10 ATHSCL HEART DISEASE OF [place] CORONARY 05/07/2016 KASANDRAAPRIL US L PROFESSOR OF BIOCHEMISTRY Ot E78.5 HYPERLIPIDEMIA, UNSPECIFIED 05/07/2016 BAIMA, APRIL L PROFESSOR OF BIOCHEMISTRY Ot I25.10 ATHSCL HEART DISEASE OF [place] CORONARY 05/28/2016 VICTOR M FERRARI FACC, ALI FACP CCDS Ot E78.4 OTHER HYPERLIPIDEMIA 05/28/2016 VICTOR M FERRARI FACC, ALI FACP CCDS Ot I10 ESSENTIAL (PRIMARY) HYPERTENSION 05/28/2016 VICTOR M FERRARI FACC, ALI FACP CCDS Ot I25.10 ATHSCL HEART DISEASE OF [place] CORONARY 05/28/2016 VICTOR M FERRARI FACC, ALI FACP CCDS Ot I65.23 OCCLUSION AND STENOSIS OF [place] 05/28/2016 VICTOR M FERRARI FACC, ALI FACP CCDS Ot Z72.0 TOBACCO USE 05/31/2016 VICTOR M FERRARI FACC, ALI FACP CCDS Ot E78.4 OTHER HYPERLIPIDEMIA 05/31/2016 VICTOR M FERRARI FACC, ALI FACP CCDS Ot I10 ESSENTIAL (PRIMARY) HYPERTENSION 05/31/2016 VICTOR M FERRARI FACC, ALI FACP CCDS Ot I25.10 ATHSCL HEART DISEASE OF [place] CORONARY 05/31/2016 VICTOR M FERRARI FACC, ALI FACP CCDS Ot I65.23 OCCLUSION AND STENOSIS OF [place] 05/31/2016 VICTOR M FERRARI FACC, ALI FACP CCDS Ot Z72.0 TOBACCO USE 07/02/2016 LARRY KUO DO Ot M25.531 PAIN IN RIGHT WRIST 07/11/2016 LARRY KUO DO Ot E04.1 NONTOXIC SINGLE THYROID NODULE 07/11/2016 LARRY KUO DO Ot R22.1 LOCALIZED SWELLING, MASS AND LUMP, NECK 07/12/2016 LARRY KUO DO Ot E04.1 NONTOXIC SINGLE THYROID NODULE 07/12/2016 LARRY KUO DO Ot R22.1 LOCALIZED SWELLING, MASS AND LUMP, NECK 07/12/2016 LARRY KUO DO Ot E04.1 NONTOXIC SINGLE THYROID NODULE 07/12/2016 LARRY KUO DO Ot R22.1 LOCALIZED SWELLING, MASS AND LUMP, NECK 07/18/2016 Ot 272.4 HYPE RLIPIDEMIA NEC/NOS 07/18/2016 Ot 401.9 HYPE RTENSION NOS 07/18/2016 Ot 414.00 COR ON ATHEROSCLER NOS TYPE VESSEL, NATIV 07/18/2016 Ot V58.69 OTH MED,LT,CURRENT USE 07/18/2016 Ot 272.4 HYPE RLIPIDEMIA NEC/NOS 07/18/2016 Ot 401.9 HYPE RTENSION NOS 07/18/2016 Ot V58.69 OTH MED,LT,CURRENT USE 07/18/2016 Ot V72.84 EXA M PRE- OPERATIVE NOS 07/18/2016 Ot 272.4 HYPE RLIPIDEMIA NEC/NOS 07/18/2016 Ot 414.00 COR ON ATHEROSCLER NOS TYPE VESSEL, NATIV 07/18/2016 Ot V58.69 OTH MED,LT,CURRENT USE 07/18/2016 Ot 241.0 NONT OX UNINODULAR GOITER 07/18/2016 Ot 240.9 GOIT ER NOS 07/18/2016 Ot 241.0 NONT OX UNINODULAR GOITER 07/18/2016 Ot 272.4 HYPE RLIPIDEMIA NEC/NOS 07/18/2016 Ot 401.9 HYPE RTENSION NOS 07/18/2016 Ot 414.00 COR ON ATHEROSCLER NOS TYPE VESSEL, NATIV 07/18/2016 Ot V58.69 OTH MED,LT,CURRENT USE 07/18/2016 Ot 414.00 COR ON ATHEROSCLER NOS TYPE VESSEL, NATIV 07/18/2016 Ot V45.82 PER CUTANEOUS TRANSLUM CORON ANGIOPLASTY 07/18/2016 VICTOR M FERRARI FACC, ADONAY GREGORYP CCDS Ot 272.4 HYPERLIPIDEMIA NEC/NOS 07/18/2016 VICTOR M FERRARI FACC, ADONAY GREGORYP CCDS Ot 414.01 CORONARY ATHEROSCLEROSIS OF [place] CORON 07/18/2016 VICTOR M FERRARI FACC, ADONAY GREGORYP CCDS Ot V58.69 OTH MED,LT,CURRENT USE 07/18/2016 APRIL BARRON PROFESSOR OF BIOCHEMISTRY Ot 272.4 HYPERLIPIDEMIA NEC/NOS 07/18/2016 BAIMA, APRIL L PROFESSOR OF BIOCHEMISTRY Ot 401.9 HYPERTENSION NOS 07/18/2016 BAIMA, APRIL L PROFESSOR OF BIOCHEMISTRY Ot 414.01 CORONARY ATHEROSCLEROSIS OF [place] CORON 07/18/2016 BAIMA, APRIL L PROFESSOR OF BIOCHEMISTRY Ot 272.4 HYPERLIPIDEMIA NEC/NOS 07/18/2016 BAIMA, APRIL L PROFESSOR OF BIOCHEMISTRY Ot V58.69 OTH MED,LT,CURRENT USE 07/18/2016 BAIMA, APRIL L PROFESSOR OF BIOCHEMISTRY Ot 272.4 HYPERLIPIDEMIA NEC/NOS 07/18/2016 BAIMA, APRIL L PROFESSOR OF BIOCHEMISTRY Ot 414.00 CORON ATHEROSCLER NOS TYPE VESSEL, NATIV 07/18/2016 BAIMA, APRIL L PROFESSOR OF BIOCHEMISTRY Ot 272.4 HYPERLIPIDEMIA NEC/NOS 07/18/2016 BAIMA, APRIL L PROFESSOR OF BIOCHEMISTRY Ot 414.00 CORON ATHEROSCLER NOS TYPE VESSEL, NATIV 07/18/2016 BAIMA, APRIL L PROFESSOR OF BIOCHEMISTRY Ot 447.9 ARTERIAL DISEASE NOS 07/18/2016 LARRY KUO DO A Ot 241.0 NONTOX UNINODULAR GOITER 07/18/2016 BAIMA, APRIL L PROFESSOR OF BIOCHEMISTRY Ot 272.4 HYPERLIPIDEMIA NEC/NOS 07/18/2016 BAIMA, APRIL L PROFESSOR OF BIOCHEMISTRY Ot 414.00 CORON ATHEROSCLER NOS TYPE VESSEL, NATIV 07/18/2016 BAIMA, APRIL L PROFESSOR OF BIOCHEMISTRY Ot 272.4 HYPERLIPIDEMIA NEC/NOS 07/18/2016 LESLIE FERRARI, VENKAT A Ot C61 MALIGNANT NEOPLASM OF PROSTATE 07/18/2016 BAIMA, APRIL L PROFESSOR OF BIOCHEMISTRY Ot E78.5 HYPERLIPIDEMIA, UNSPECIFIED 07/18/2016 BAIMA, APRIL L PROFESSOR OF BIOCHEMISTRY Ot I25.10 ATHSCL HEART DISEASE OF [place] CORONARY 07/18/2016 BAIMA, APRIL L PROFESSOR OF BIOCHEMISTRY Ot E78.5 HYPERLIPIDEMIA, UNSPECIFIED 07/18/2016 BAIMA, APRIL L PROFESSOR OF BIOCHEMISTRY Ot I25.10 ATHSCL HEART DISEASE OF [place] CORONARY 07/18/2016 VICTOR M FERRARI FACC, ADONAY FACP CCDS Ot E78.4 OTHER HYPERLIPIDEMIA 07/18/2016 VICTOR M FERRARI FACC, ADONAY FACP CCDS Ot I10 ESSENTIAL (PRIMARY) HYPERTENSION 07/18/2016 VICTOR M FERRARI FACC, ADONAY FACP CCDS Ot I25.10 ATHSCL HEART DISEASE OF [place] CORONARY 07/18/2016 VICTOR M FERRARI FACC, ALI FACP CCDS Ot I65.23 OCCLUSION AND STENOSIS OF [place] 07/18/2016 VICTOR M FERRARI FACC, ADONAY GREGORYP CCDS Ot Z72.0 TOBACCO USE 07/18/2016 GELLENDER [...] NECK 08/09/2016 GELLENDER DO, LARRY A Ot M89.9 DISORDER OF BONE, UNSPECIFIED 08/09/2016 [...] ENLARGED LYMPH NODES 08/15/2016 GELLENDER DO, LARRY A Ot R22.1 LOCALIZED SWELLING, MASS AND LUMP, NECK 08/15/2016 RICHELLE FERRARI, BEAN M Ot R59.0 LOCALIZED ENLARGED LYMPH NODES 08/15/2016 RICHELLE FERRARI, BEAN M Ot Z01.818 ENCOUNTER FOR OTHER PREPROCEDURAL EXAMIN 08/15/2016 RICHELLE FERRARI, BEAN M Ot Z11.2 ENCOUNTER FOR SCREENING FOR OTHER BACTER 08/15/2016 GELLENDER DO, LARRY A Ot M89.9 DISORDER OF BONE, UNSPECIFIED 08/15/2016 GELLENDER DO, LARRY A Ot R22.1 LOCALIZED SWELLING, MASS AND LUMP, NECK 08/15/2016 GELLENDER DO, LARRY A Ot R59.0 LOCALIZED ENLARGED LYMPH NODES 08/16/2016 RICHELLE FERRARI, BEAN M Ot R59.0 LOCALIZED ENLARGED LYMPH NODES 08/16/2016 RICHELLE FERRARI, BEAN M Ot Z01.818 ENCOUNTER FOR OTHER PREPROCEDURAL EXAMIN 08/16/2016 RICHELLE FERRARI, BEAN M Ot Z11.2 ENCOUNTER FOR SCREENING FOR OTHER BACTER 08/19/2016 GELLENDER DO, LARRY A Ot M89.9 DISORDER OF BONE, UNSPECIFIED 08/19/2016 GELLENDER DO, LARRY A Ot R59.0 LOCALIZED ENLARGED LYMPH NODES 08/21/2016 RICHELLE FERRARI, BEAN Love Ot E11.9 TYPE 2 DIABETES MELLITUS WITHOUT COMPLIC 08/21/2016 RICHELLE FERRARI, BEAN Love Ot E78.5 HYPERLIPIDEMIA, UNSPECIFIED 08/21/2016 RICHELLE FERRARI, BEAN Love Ot I1 0 ESSENTIAL (PRIMARY) HYPERTENSION 08/21/2016 RICHELLE FERRARI, BEAN Love Ot I25.10 ATHSCL HEART DISEASE OF [place] CORONARY 08/21/2016 RICHELLE FERRARI, BEAN Love Ot R59.0 LOCALIZED ENLARGED LYMPH NODES 08/21/2016 RICHELLE FERRARI, BEAN Love Ot Z87.891 PERSONAL HISTORY OF NICOTINE DEPENDENCE 08/22/2016 BEAN PEOPLES MD Ot E11.9 TYPE 2 DIABETES MELLITUS WITHOUT COMPLIC 08/22/2016 RICHELLE FERRARI, BEAN Love Ot E78.5 HYPERLIPIDEMIA, UNSPECIFIED 08/22/2016 RICHELLE FERRARI, BEAN Love Ot I1 0 ESSENTIAL (PRIMARY) HYPERTENSION 08/22/2016 RICHELLE FERRARI, BEAN Love Ot I25.10 ATHSCL HEART DISEASE OF [place] CORONARY 08/22/2016 BEAN PEOPLES MD Ot R59.0 LOCALIZED ENLARGED LYMPH NODES 08/22/2016 BEAN PEOPLES MD Ot Z87.891 PERSONAL HISTORY OF NICOTINE DEPENDENCE 08/24/2016 OLGA LIDIA GARCIA APRN Ot E11 .9 TYPE 2 DIABETES MELLITUS WITHOUT COMPLIC 08/24/2016 OLGA LIDIA GARCIA MANUGRAPHER Ot I10 ESSENTIAL (PRIMARY) HYPERTENSION 08/24/2016 OLGA LIDIA GARCIA APRN Ot R22.42 LOCALIZED SWELLING, MASS AND LUMP, LEFT 08/24/2016 OLGA LIDIA GARCIA APRN Ot R59 .0 LOCALIZED ENLARGED LYMPH NODES 08/24/2016 OLGA LIDIA GARCIA MANUGRAPHER Ot Z79.02 RELIABILITY TECHNICIAN (CURRENT) USE OF ANTITHROMBOTI 08/24/2016 OLGA LIDIA GARCIA MANUGRAPHER Ot Z79.84 DETENTION (CURRENT) USE OF ORAL HYPOGLYC 08/24/2016 OLGA LIDIA GARCIA MANUGRAPHER Ot Z79.899 OTHER RELIABILITY TECHNICIAN (CURRENT) DRUG THERAPY 08/26/2016 OLGA LIDIA GARCIA MANUGRAPHER Ot E11 .9 TYPE 2 DIABETES MELLITUS WITHOUT COMPLIC 08/26/2016 OLGA LIDIA GARCIA MANUGRAPHER Ot I10 ESSENTIAL (PRIMARY) HYPERTENSION 08/26/2016 OLGA LIDIA GARCIA MANUGRAPHER Ot R22.42 LOCALIZED SWELLING, MASS AND LUMP, LEFT 08/26/2016 OLGA LIDIA GARCIA APRN Ot R59 .0 LOCALIZED ENLARGED LYMPH NODES 08/26/2016 OLGA LIDIA GARCIA MANUGRAPHER Ot Z79.02 RELIABILITY TECHNICIAN (CURRENT) USE OF ANTITHROMBOTI 08/26/2016 OLGA LIDIA GARCIA MANUGRAPHER Ot Z79.84 DETENTION (CURRENT) USE OF ORAL HYPOGLYC 08/26/2016 OLGA LIDIA GARCIA MANUGRAPHER Ot Z79.899 OTHER DETENTION (CURRENT) DRUG THERAPY 09/04/2016 RICHELLE FERRARI, BEAN Love Ot C85.90 NON-[place]IN LYMPHOMA, UNSPECIFIED, UNSPE 09/04/2016 RICHELLE FERRARI, BEAN Love Ot Z01.818 ENCOUNTER FOR OTHER PREPROCEDURAL EXAMIN 09/05/2016 RICHELLE FERRARI, BEAN Love Ot E11.9 TYPE 2 DIABETES MELLITUS WITHOUT COMPLIC 09/05/2016 RICHELLE FERRARI, BEAN Love Ot E78.5 HYPERLIPIDEMIA, UNSPECIFIED 09/05/2016 RICHELLE FERRARI, BEAN Love Ot I1 0 ESSENTIAL (PRIMARY) HYPERTENSION 09/05/2016 RICHELLE FERRARI, BEAN Love Ot I25.10 ATHSCL HEART DISEASE OF [place] CORONARY 09/05/2016 RICHELLE FERRARI, BEAN Love Ot R59.0 LOCALIZED ENLARGED LYMPH NODES 09/05/2016 RICHELLE FERRARI, BEAN Love Ot Z87.891 PERSONAL HISTORY OF NICOTINE DEPENDENCE 09/05/2016 Ot 272.4 HYPE RLIPIDEMIA NEC/NOS 09/05/2016 Ot 401.9 HYPE RTENSION NOS 09/05/2016 Ot 414.00 COR ON ATHEROSCLER NOS TYPE VESSEL, NATIV 09/05/2016 Ot V58.69 OTH MED,LT,CURRENT USE 09/05/2016 Ot 272.4 HYPE RLIPIDEMIA NEC/NOS 09/05/2016 Ot 401.9 HYPE RTENSION NOS 09/05/2016 Ot V58.69 OTH MED,LT,CURRENT USE 09/05/2016 Ot V72.84 EXA M PRE- OPERATIVE NOS 09/05/2016 Ot 272.4 HYPE RLIPIDEMIA NEC/NOS 09/05/2016 Ot 414.00 COR ON ATHEROSCLER NOS TYPE VESSEL, NATIV 09/05/2016 Ot V58.69 OTH MED,LT,CURRENT USE 09/05/2016 Ot 241.0 NONT OX UNINODULAR GOITER 09/05/2016 Ot 240.9 GOIT ER NOS 09/05/2016 Ot 241.0 NONT OX UNINODULAR GOITER 09/05/2016 Ot 272.4 HYPE RLIPIDEMIA NEC/NOS 09/05/2016 Ot 401.9 HYPE RTENSION NOS 09/05/2016 Ot 414.00 COR ON ATHEROSCLER NOS TYPE VESSEL, NATIV 09/05/2016 Ot V58.69 OTH MED,LT,CURRENT USE 09/05/2016 Ot 414.00 COR ON ATHEROSCLER NOS TYPE VESSEL, NATIV 09/05/2016 Ot V45.82 PER CUTANEOUS TRANSLUM CORON ANGIOPLASTY 09/05/2016 VICTOR M FERRARI FACC, ALI FACP CCDS Ot 272.4 HYPERLIPIDEMIA NEC/NOS 09/05/2016 VICTOR M FERRARI FACC, ALI FACP CCDS Ot 414.01 CORONARY ATHEROSCLEROSIS OF [place] CORON 09/05/2016 VICTOR M FERRARI FACC, ALI FAC CCDS Ot V58.69 OTH MED,LT,CURRENT USE 09/05/2016 BAIMA, APRIL L PROFESSOR OF BIOCHEMISTRY Ot 272.4 HYPERLIPIDEMIA NEC/NOS 09/05/2016 BAIMA, APRIL L PROFESSOR OF BIOCHEMISTRY Ot 401.9 HYPERTENSION NOS 09/05/2016 BAIMA, APRIL L PROFESSOR OF BIOCHEMISTRY Ot 414.01 CORONARY ATHEROSCLEROSIS OF [place] CORON 09/05/2016 BAIMA, APRIL L PROFESSOR OF BIOCHEMISTRY Ot 272.4 HYPERLIPIDEMIA NEC/NOS 09/05/2016 BAIMA, APRIL L PROFESSOR OF BIOCHEMISTRY Ot V58.69 OTH MED,LT,CURRENT USE 09/05/2016 BAIMA, APRIL L PROFESSOR OF BIOCHEMISTRY Ot 272.4 HYPERLIPIDEMIA NEC/NOS 09/05/2016 BAIMA, APRIL L PROFESSOR OF BIOCHEMISTRY Ot 414.00 CORON ATHEROSCLER NOS TYPE VESSEL, NATIV 09/05/2016 BAIMA, APRIL L PROFESSOR OF BIOCHEMISTRY Ot 272.4 HYPERLIPIDEMIA NEC/NOS 09/05/2016 BAIMA, APRIL L PROFESSOR OF BIOCHEMISTRY Ot 414.00 CORON ATHEROSCLER NOS TYPE VESSEL, NATIV 09/05/2016 BAIMA, APRIL L PROFESSOR OF BIOCHEMISTRY Ot 447.9 ARTERIAL DISEASE NOS 09/05/2016 LARRY KUO DO A Ot 241.0 NONTOX UNINODULAR GOITER 09/05/2016 BAIMA, APRIL L PROFESSOR OF BIOCHEMISTRY Ot 272.4 HYPERLIPIDEMIA NEC/NOS 09/05/2016 BAIMA, APRIL L PROFESSOR OF BIOCHEMISTRY Ot 414.00 CORON ATHEROSCLER NOS TYPE VESSEL, NATIV 09/05/2016 BAIMA, APRIL L PROFESSOR OF BIOCHEMISTRY Ot 272.4 HYPERLIPIDEMIA NEC/NOS 09/05/2016 VENKAT NELSON MD Ot C61 MALIGNANT NEOPLASM OF [place]OST[place] 09/05/2016 BAIMA, APRIL L PROFESSOR OF BIOCHEMISTRY Ot E78.5 HYPERLIPIDEMIA, UNSPECIFIED 09/05/2016 BAIAPRIL US PROFESSOR OF BIOCHEMISTRY Ot I25.10 ATHSCL HEART DISEASE OF [place] CORONARY 09/05/2016 APRIL BARRON PROFESSOR OF BIOCHEMISTRY Ot E78.5 HYPERLIPIDEMIA, UNSPECIFIED 09/05/2016 BAIAPRIL US PROFESSOR OF BIOCHEMISTRY Ot I25.10 ATHSCL HEART DISEASE OF [place] CORONARY 09/05/2016 VICTOR M FERRARI FAC, ALI FACP CCDS Ot E78.4 OTHER HYPERLIPIDEMIA 09/05/2016 VICTOR M FERRARI FAC, ALI FACP CCDS Ot I10 ESSENTIAL (PRIMARY) HYPERTENSION 09/05/2016 VICTOR M FERRARI FAC, ALI FACP CCDS Ot I25.10 ATHSCL HEART DISEASE OF [place] CORONARY 09/05/2016 VICTOR M FERRARI FACC, ALI [...] Ot M89.9 DISORDER OF BONE, UNSPECIFIED 09/05/2016 SHARONDER LARRY CARTER Ot R22.1 LOCALIZED SWELLING, MASS AND LUMP, NECK 09/05/2016 LARRY KUO DO Ot R59.0 LOCALIZED ENLARGED LYMPH NODES 09/05/2016 LARRY KUO DO Ot M89.9 DISORDER OF BONE, UNSPECIFIED 09/05/2016 ARLENLENDER LARRY CARTER Ot R59.0 LOCALIZED ENLARGED LYMPH NODES 09/05/2016 LARRY KUO DO Ot R22.1 LOCALIZED SWELLING, MASS AND LUMP, NECK 09/05/2016 LARRY KUO DO Ot C83.30 DIFFUSE LARGE B-CELL LYMPHOMA, UNSPECIFI 09/05/2016 LARRY KUO DO Ot J35.9 CHRONIC DISEASE OF TONSILS AND ADENOIDS, 09/05/2016 LARRY KUO DO Ot R59.0 LOCALIZED ENLARGED LYMPH NODES 09/05/2016 LARRY KUO DO Ot C83.30 DIFFUSE LARGE B-CELL LYMPHOMA, UNSPECIFI 09/05/2016 LARRY KUO DO Ot J35.9 CHRONIC DISEASE OF TONSILS AND ADENOIDS, 09/05/2016 LARRY KUO DO Ot R59.0 LOCALIZED ENLARGED LYMPH NODES 09/05/2016 RICHELLE FERRARI, BEAN Loev Ot C85.90 NON-[place] LYMPHOMA, UNSPECIFIED, UNSPE 09/05/2016 RICHELLE FERRARI, BEAN Love Ot Z01.818 ENCOUNTER FOR OTHER PREPROCEDURAL EXAMIN 09/05/2016 RICHELLE FERRARI, BEAN Love Ot C85.91 NON-[place] LYMPHOMA, UNSP, NODES OF HEA 09/05/2016 RICHELLE FERRARI, BEAN Love Ot E11.9 TYPE 2 DIABETES MELLITUS WITHOUT COMPLIC 09/05/2016 RICHELLE FERRARI, BEAN Love Ot Z79.84 RELIABILITY TECHNICIAN (CURRENT) USE OF ORAL HYPOGLYC 09/09/2016 ROXI [...] DUNLAP Ot I25.10 ATHSCL HEART DISEASE OF [place] CORONARY 09/11/2016 ROXI DUNLAP Ot Z79.84 RELIABILITY TECHNICIAN (CURRENT) USE OF ORAL HYPOGLYC 09/11/2016 ROXI DUNLAP Ot Z79.899 OTHER DETENTION (CURRENT) DRUG THERAPY 09/11/2016 ROXI DUNLAP Ot Z87.891 PERSONAL HISTORY OF NICOTINE DEPENDENCE 09/11/2016 ROXI DUNLAP Ot Z95.5 PRESENCE OF CORONARY ANGIOPLASTY IMPLANT 09/17/2016 LARRY KUO DO Ot M89.9 DISORDER OF BONE, UNSPECIFIED 09/17/2016 GELLENDER DO, LARRY A Ot R59.0 LOCALIZED ENLARGED LYMPH NODES 09/17/2016 GELLENDER DO, LARRY Wiley Ot R22.1 LOCALIZED SWELLING, MASS AND LUMP, NECK 09/17/2016 SHIELA CARTER, LARRY Wiley Ot M89.9 DISORDER OF BONE, UNSPECIFIED 09/17/2016 SHIELA CARTER, LARRY Wiley Ot R59.0 LOCALIZED ENLARGED LYMPH NODES 09/17/2016 SHIELA CARTER, LARRY Wiley Ot R22.1 LOCALIZED SWELLING, MASS AND LUMP, NECK 09/19/2016 BAIMA, APRIL L PROFESSOR OF BIOCHEMISTRY Ot E78.5 HYPERLIPIDEMIA, UNSPECIFIED 09/19/2016 BAIMA, APRIL L PROFESSOR OF BIOCHEMISTRY Ot I 10 ESSENTIAL (PRIMARY) HYPERTENSION 09/19/2016 BAIMA, APRIL L PROFESSOR OF BIOCHEMISTRY Ot I25.10 ATHSCL HEART DISEASE OF [place] CORONARY 09/19/2016 BAIMA, APRIL L PROFESSOR OF BIOCHEMISTRY Ot I77.9 DISORDER OF ARTERIES AND ARTERIOLES, UNS 09/19/2016 BAIMA, APRIL L PROFESSOR OF BIOCHEMISTRY Ot E78.5 HYPERLIPIDEMIA, UNSPECIFIED 09/19/2016 BAIMA, APRIL L PROFESSOR OF BIOCHEMISTRY Ot I 10 ESSENTIAL (PRIMARY) HYPERTENSION 09/19/2016 BAIMA, APRIL L PROFESSOR OF BIOCHEMISTRY Ot I25.10 ATHSCL HEART DISEASE OF [place] CORONARY 09/19/2016 BAIMA, APRIL L PROFESSOR OF BIOCHEMISTRY Ot I77.9 DISORDER OF ARTERIES AND ARTERIOLES, UNS 09/19/2016 BAIMA, APRIL L PROFESSOR OF BIOCHEMISTRY Ot E78.5 HYPERLIPIDEMIA, UNSPECIFIED 09/19/2016 BAIMA, APRIL L PROFESSOR OF BIOCHEMISTRY Ot I 10 ESSENTIAL (PRIMARY) HYPERTENSION 09/19/2016 BAIMA, APRIL L PROFESSOR OF BIOCHEMISTRY Ot I25.10 ATHSCL HEART DISEASE OF [place] CORONARY 09/19/2016 BAIMA, APRIL L PROFESSOR OF BIOCHEMISTRY Ot I77.9 DISORDER OF ARTERIES AND ARTERIOLES, UNS 09/19/2016 BAIMA, APIRL L PROFESSOR OF BIOCHEMISTRY Ot E78.5 HYPERLIPIDEMIA, UNSPECIFIED 09/19/2016 BAIMA, APRIL L PROFESSOR OF BIOCHEMISTRY Ot I 10 ESSENTIAL (PRIMARY) HYPERTENSION 09/19/2016 BAIMA, APRIL L PROFESSOR OF BIOCHEMISTRY Ot I25.10 ATHSCL HEART DISEASE OF [place] CORONARY 09/19/2016 BAIMA, APRIL L PROFESSOR OF BIOCHEMISTRY Ot I77.9 DISORDER OF ARTERIES AND ARTERIOLES, UNS 09/19/2016 BAIMA, APRIL L PROFESSOR OF BIOCHEMISTRY Ot E78.5 HYPERLIPIDEMIA, UNSPECIFIED 09/19/2016 APRIL BARRON PROFESSOR OF BIOCHEMISTRY Ot I 10 ESSENTIAL (PRIMARY) HYPERTENSION 09/19/2016 APRIL BARRON PROFESSOR OF BIOCHEMISTRY Ot I25.10 ATHSCL HEART DISEASE OF [place] CORONARY 09/19/2016 APRIL BARRON PROFESSOR OF BIOCHEMISTRY Ot I77.9 DISORDER OF ARTERIES AND ARTERIOLES, UNS 09/24/2016 RICHELLE FERRARI, BEAN Love Ot E11.9 TYPE 2 DIABETES MELLITUS WITHOUT COMPLIC 09/24/2016 RICHELLE FERRARI, BEAN Love Ot E78.5 HYPERLIPIDEMIA, UNSPECIFIED 09/24/2016 RICHELLE FERRARI, BEAN Love Ot I1 0 ESSENTIAL (PRIMARY) HYPERTENSION 09/24/2016 RICHELLE FERRARI, BEAN Love Ot I25.10 ATHSCL HEART DISEASE OF [place] CORONARY 09/24/2016 RICHELLE FERRARI, BEAN Love Ot [...] LOCALIZED ENLARGED LYMPH NODES 10/09/2016 APRIL BARRON PROFESSOR OF BIOCHEMISTRY Ot E78.5 HYPERLIPIDEMIA, UNSPECIFIED 10/09/2016 APRIL BARRON PROFESSOR OF BIOCHEMISTRY Ot I 10 ESSENTIAL (PRIMARY) HYPERTENSION 10/09/2016 KASANDRAAPRIL US Licha PROFESSOR OF BIOCHEMISTRY Ot I25.10 ATHSCL HEART DISEASE OF [place] CORONARY 10/09/2016 KASANDRAMAGEN APRIL Licha PROFESSOR OF BIOCHEMISTRY Ot I77.9 DISORDER OF ARTERIES AND ARTERIOLES, UNS 10/21/2016 ROXI DUNLAP Pierre Ot C83.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, LYMPH NOD 10/21/2016 GERMÁN ROXI N Ot E11.9 TYPE 2 DIABETES MELLITUS WITHOUT COMPLIC 10/21/2016 GERMÁN ROXI N Ot E78.5 HYPERLIPIDEMIA, UNSPECIFIED 10/21/2016 GERMÁN ROXI N Ot I10 ESSENTIAL (PRIMARY) HYPERTENSION 10/21/2016 GERMÁN ROXI N Ot I25.10 ATHSCL HEART DISEASE OF [place] CORONARY 10/21/2016 GERMÁNROXI Ot Z79.84 DETENTION (CURRENT) USE OF ORAL HYPOGLYC 10/21/2016 GERMÁNROXI N Ot Z79.899 OTHER DETENTION (CURRENT) DRUG THERAPY 10/21/2016 GERMÁNROXI Ot Z87.891 PERSONAL HISTORY OF NICOTINE DEPENDENCE 10/21/2016 ROXI DUNLAP N Ot Z95.5 PRESENCE OF CORONARY ANGIOPLASTY IMPLANT 10/23/2016 GERMÁN ROXI N Ot C83.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, LYMPH NOD 10/23/2016 GERMÁN ROXI N Ot E11.9 TYPE 2 DIABETES MELLITUS WITHOUT COMPLIC 10/23/2016 GERMÁN ROXI N Ot E78.5 HYPERLIPIDEMIA, UNSPECIFIED 10/23/2016 GERMÁN ROXI N Ot I10 ESSENTIAL (PRIMARY) HYPERTENSION 10/23/2016 GERMÁN ROXI Jay Ot I25.10 ATHSCL HEART DISEASE OF [place] CORONARY 10/23/2016 GERMÁNROXI N Ot Z79.84 DETENTION (CURRENT) USE OF ORAL HYPOGLYC 10/23/2016 RXOI DUNLAP N Ot Z79.899 OTHER RELIABILITY TECHNICIAN (CURRENT) DRUG THERAPY 10/23/2016 ROXI DUNLAP N Ot Z87.891 PERSONAL HISTORY OF NICOTINE DEPENDENCE 10/23/2016 ROXI DUNLAP N Ot Z95.5 PRESENCE OF CORONARY ANGIOPLASTY IMPLANT 10/24/2016 GELLENDER DO, LARRY A Ot A41.9 SEPSIS, UNSPECIFIED ORGANISM 10/24/2016 GELLENDER DOLARRY Ot C85.90 NON-[place] LYMPHOMA, UNSPECIFIED, UNSPE 10/24/2016 GELLENDER DO, LARRY Wiley Ot 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 10/24/2016 GELLENDER DO, LARRY Wiley Ot D70.9 NEUTROPENIA, UNSPECIFIED 10/24/2016 GELLENDER DO, LARRY Wiley Ot E11.9 TYPE 2 DIABETES MELLITUS WITHOUT COMPLIC 10/24/2016 GELLENDER DO, LARRY Wiley Ot E78.00 PURE HYPERCHOLESTEROLEMIA, UNSPECIFIED 10/24/2016 GELLENDER DO, LARRY Wiley Ot I10 ESSENTIAL (PRIMARY) HYPERTENSION 10/24/2016 GELLENDER DO, LARRY Wiley Ot I25.10 ATHSCL HEART DISEASE OF [place] CORONARY 10/24/2016 GELLENDER DO, LARRY Wiley Ot K04.7 PERIAPICAL ABSCESS WITHOUT SINUS 10/24/2016 GELLENDER DO, LARRY Wiley Ot M19.91 PRIMARY OSTEOARTHRITIS, UNSPECIFIED SITE 10/24/2016 GELLENDER DO, LARRY Wiley Ot R50.81 FEVER PRESENTING WITH CONDITIONS CLASSIF 10/24/2016 [facility] LARRY Wiley Ot T45.1X5A ADVERSE EFFECT OF ANTINEOPLASTIC AND IMM 10/24/2016 GELLENDER DO, LARRY Wiley Ot Z79.84 RELIABILITY TECHNICIAN (CURRENT) USE OF ORAL HYPOGLYC 10/24/2016 [facility] LARRY Wiley Ot Z85.46 PERSONAL HISTORY OF MALIGNANT NEOPLASM O 10/24/2016 GELLENDER DO, LARRY Wiley Ot Z87.891 PERSONAL HISTORY OF NICOTINE DEPENDENCE 10/24/2016 [facility], LARRY Wiley Ot Z92.21 PERSONAL HISTORY OF ANTINEOPLASTIC CHEMO 10/24/2016 [facility] , LARRY Wiley Ot Z95.5 PRESENCE OF CORONARY ANGIOPLASTY IMPLANT 11/06/2016 ROXI DUNLAP Ot C83.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, LYMPH NOD 11/06/2016 ROXI DUNLAP Ot E11.9 TYPE 2 DIABETES MELLITUS WITHOUT COMPLIC 11/06/2016 ROXI DUNLAP Ot E78.5 HYPERLIPIDEMIA, UNSPECIFIED 11/06/2016 ROXI DUNLAP Ot I10 ESSENTIAL (PRIMARY) HYPERTENSION 11/06/2016 ROXI DUNLAP Ot I25.10 ATHSCL HEART DISEASE OF [place] CORONARY 11/06/2016 ROXI DUNLAP Ot Z79.84 RELIABILITY TECHNICIAN (CURRENT) USE OF ORAL HYPOGLYC 11/06/2016 ROXI DUNLAP Ot Z79.899 OTHER DETENTION (CURRENT) DRUG THERAPY 11/06/2016 ROXI DUNLAP N Ot Z87.891 PERSONAL HISTORY OF NICOTINE DEPENDENCE 11/06/2016 ROXI DUNLAP N Ot Z95.5 PRESENCE OF CORONARY ANGIOPLASTY IMPLANT 11/27/2016 JUSTIN ARCEO S PROFESSOR OF BIOCHEMISTRY Ot C83.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, LYMPH NOD 11/27/2016 ARCEO HILAH S PROFESSOR OF BIOCHEMISTRY Ot C83.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, LYMPH NOD 12/02/2016 ARCEO, HILAH S PROFESSOR OF BIOCHEMISTRY Ot C83.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, LYMPH NOD 12/04/2016 ROXI DUNLAP N Ot C83.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, LYMPH NOD 12/04/2016 ROXI UDNLAP N Ot E11.9 TYPE 2 DIABETES MELLITUS WITHOUT COMPLIC 12/04/2016 ROXI DUNLAP N Ot E78.5 HYPERLIPIDEMIA, UNSPECIFIED 12/04/2016 GERMÁN, ROXI N Ot I10 ESSENTIAL (PRIMARY) HYPERTENSION 12/04/2016 ROXI DUNLAP N Ot I25.10 ATHSCL HEART DISEASE OF [place] CORONARY 12/04/2016 ROXI DUNLAP N Ot Z12.11 ENCOUNTER FOR SCREENING FOR MALIGNANT NE 12/04/2016 GERMÁNROXI LEACH N Ot Z79.84 RELIABILITY TECHNICIAN (CURRENT) USE OF ORAL HYPOGLYC 12/04/2016 ROXI DUNLAP N Ot Z79.899 OTHER RELIABILITY TECHNICIAN (CURRENT) DRUG THERAPY 12/04/2016 ROXI DUNLAP N Ot Z87.891 PERSONAL HISTORY OF NICOTINE DEPENDENCE 12/04/2016 ROXI DUNLAP N Ot Z95.5 PRESENCE OF CORONARY ANGIOPLASTY IMPLANT 12/04/2016 ROXI DUNLAP N Ot C83.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, LYMPH NOD 12/04/2016 ROXI DUNLAP N Ot E11.9 TYPE 2 DIABETES MELLITUS WITHOUT COMPLIC 12/04/2016 GERMÁN ROXI N Ot E78.5 HYPERLIPIDEMIA, UNSPECIFIED 12/04/2016 GERMÁN BOBAN N Ot I10 ESSENTIAL (PRIMARY) HYPERTENSION 12/04/2016 GERMÁN, VLADIMIRAN N Ot I25.10 ATHSCL HEART DISEASE OF [place] CORONARY 12/04/2016 GERMÁNROXI LEACH N Ot Z79.84 RELIABILITY TECHNICIAN (CURRENT) USE OF ORAL HYPOGLYC 12/04/2016 ROXI DUNLAP N Ot Z79.899 OTHER RELIABILITY TECHNICIAN (CURRENT) DRUG THERAPY 12/04/2016 ROXI DUNLAP N [...] N Ot I25.10 ATHSCL HEART DISEASE OF [place] CORONARY 12/06/2016 ROXI DUNLAP N Ot Z79.84 DETENTION (CURRENT) USE OF ORAL HYPOGLYC 12/06/2016 ROXI DUNLAP N Ot Z79.899 OTHER RELIABILITY TECHNICIAN (CURRENT) DRUG THERAPY 12/06/2016 ROXI DUNLAP N Ot Z87.891 PERSONAL HISTORY OF NICOTINE DEPENDENCE 12/06/2016 ROXI DUNLAP N Ot Z95.5 PRESENCE OF CORONARY ANGIOPLASTY IMPLANT 12/18/2016 JUSTIN ARCEO PROFESSOR OF BIOCHEMISTRY Ot C83.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, LYMPH NOD 12/24/2016 JUSTIN ARCEO PROFESSOR OF BIOCHEMISTRY Ot C83.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, LYMPH NOD 01/16/2017 GERMÁNROXI N Ot C83.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, LYMPH NOD 01/16/2017 ROXI DUNLAP N Ot E11.9 TYPE 2 DIABETES MELLITUS WITHOUT COMPLIC 01/16/2017 ROXI DUNLAP N Ot E78.5 HYPERLIPIDEMIA, UNSPECIFIED 01/16/2017 GERMÁN VLADIMIRSEBASTIEN N Ot I10 ESSENTIAL (PRIMARY) HYPERTENSION 01/16/2017 ROXI DUNLAP N Ot I25.10 ATHSCL HEART DISEASE OF [place] CORONARY 01/16/2017 ROXI DUNLAP N Ot Z79.84 RELIABILITY TECHNICIAN (CURRENT) USE OF ORAL HYPOGLYC 01/16/2017 GERMÁN VLADIMIRSEBASTIEN N Ot Z79.899 OTHER DETENTION (CURRENT) DRUG THERAPY 01/16/2017 ROXI DUNLAP N Ot Z87.891 PERSONAL HISTORY OF NICOTINE DEPENDENCE 01/16/2017 GERMÁNROXI LEACH N Ot Z95.5 PRESENCE OF CORONARY ANGIOPLASTY IMPLANT 01/23/2017 GERMÁN, VLADIMIRSEBASTIEN N Ot C83.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, LYMPH NOD 01/23/2017 GERMÁN BOBAN N Ot E11.9 TYPE 2 DIABETES MELLITUS WITHOUT COMPLIC 01/23/2017 GERMÁN ROXI N Ot E78.5 HYPERLIPIDEMIA, UNSPECIFIED 01/23/2017 GERMÁN VLADIMIRAN N Ot I10 ESSENTIAL (PRIMARY) HYPERTENSION 01/23/2017 GERMÁN BOBAN N Ot I25.10 ATHSCL HEART DISEASE OF [place] CORONARY 01/23/2017 GERMÁN, VLADIMIRAN N Ot Z79.84 DETENTION (CURRENT) USE OF ORAL HYPOGLYC 01/23/2017 GERMÁN VLADIMIRSEBASTIEN N Ot Z79.899 OTHER RELIABILITY TECHNICIAN (CURRENT) DRUG THERAPY 01/23/2017 GERMÁN, VLADIMIRSEBASTIEN N Ot Z87.891 PERSONAL HISTORY OF NICOTINE DEPENDENCE 01/23/2017 GERMÁN, VLADIMIRSEBASTIEN N Ot Z95.5 PRESENCE OF CORONARY ANGIOPLASTY IMPLANT 01/29/2017 GERMÁNVLADIMIR LEACHAN N Ot C83.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, LYMPH NOD 01/29/2017 GERMÁN, VLADIMIRAN N Ot E11.9 TYPE 2 DIABETES MELLITUS WITHOUT COMPLIC 01/29/2017 GERMÁN ROXI N Ot E78.5 HYPERLIPIDEMIA, UNSPECIFIED 01/29/2017 GERMÁN BOBAN N Ot I10 ESSENTIAL (PRIMARY) HYPERTENSION 01/29/2017 GERMÁN, VLADIMIRSEBASTIEN N Ot I25.10 ATHSCL HEART DISEASE OF [place] CORONARY 01/29/2017 GERMÁN, ROXI N Ot Z79.84 DETENTION (CURRENT) USE OF ORAL HYPOGLYC 01/29/2017 GERMÁN VLADIMIRAN N Ot Z79.899 OTHER RELIABILITY TECHNICIAN (CURRENT) DRUG THERAPY 01/29/2017 GERMÁN VLADIMIRAN N Ot Z87.891 PERSONAL HISTORY OF NICOTINE DEPENDENCE 01/29/2017 GERMÁN BOBAN N Ot Z95.5 PRESENCE OF CORONARY ANGIOPLASTY IMPLANT 01/30/2017 GERMÁN VLADIMIRAN N Ot C83.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, LYMPH NOD 01/30/2017 GERMÁN VLADIMIRAN N Ot E11.9 TYPE 2 DIABETES MELLITUS WITHOUT COMPLIC 01/30/2017 GERMÁN, BOBAN N Ot E78.5 HYPERLIPIDEMIA, UNSPECIFIED 01/30/2017 GERMÁN, BOBAN N Ot I10 ESSENTIAL (PRIMARY) HYPERTENSION 01/30/2017 GERMÁN VLADIMIRSEBASTIEN N Ot I25.10 ATHSCL HEART DISEASE OF [place] CORONARY 01/30/2017 ROXI DUNLAP N Ot Z79.84 RELIABILITY TECHNICIAN (CURRENT) USE OF ORAL HYPOGLYC 01/30/2017 VLADIMIR DUNLAPAN N Ot Z79.899 OTHER RELIABILITY TECHNICIAN (CURRENT) DRUG THERAPY 01/30/2017 ROXI DUNLAP N Ot Z87.891 PERSONAL HISTORY OF NICOTINE DEPENDENCE 01/30/2017 VLADIMIR DUNLAPAN N Ot Z95.5 PRESENCE OF CORONARY ANGIOPLASTY IMPLANT 01/30/2017 GERMÁN VLADIMIRAN N Ot C83.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, LYMPH NOD 01/30/2017 GERMÁN ROXI N Ot E11.9 TYPE 2 DIABETES MELLITUS WITHOUT COMPLIC 01/30/2017 ROXI DUNLAP N Ot E78.5 HYPERLIPIDEMIA, UNSPECIFIED 01/30/2017 GERMÁN VLADIMIRAN N Ot I10 ESSENTIAL (PRIMARY) HYPERTENSION 01/30/2017 ROXI DUNLAP N Ot I25.10 ATHSCL HEART DISEASE OF [place] CORONARY 01/30/2017 ROXI DUNLAP N Ot Z79.84 RELIABILITY TECHNICIAN (CURRENT) USE OF ORAL HYPOGLYC 01/30/2017 ROXI DUNLAP N Ot Z79.899 OTHER RELIABILITY TECHNICIAN (CURRENT) DRUG THERAPY 01/30/2017 ROXI DUNLAP N Ot Z87.891 PERSONAL HISTORY OF NICOTINE DEPENDENCE 01/30/2017 GERMÁN VLADIMIRSEBASTIEN N Ot Z95.5 PRESENCE OF CORONARY ANGIOPLASTY IMPLANT 02/03/2017 GERMÁN ROXI N Ot C83.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, LYMPH NOD 02/03/2017 GERMÁN ROXI N Ot 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 02/03/2017 GERMÁNVLADIMIRAN N Ot E11.9 TYPE 2 DIABETES MELLITUS WITHOUT COMPLIC 02/03/2017 GERMÁN ROXI N Ot E78.5 HYPERLIPIDEMIA, UNSPECIFIED 02/03/2017 GERMÁN BOBAN N Ot I10 ESSENTIAL (PRIMARY) HYPERTENSION 02/03/2017 GERMÁN VLADIMIRAN N Ot I25.10 ATHSCL HEART DISEASE OF [place] CORONARY 02/03/2017 GERMÁN, ROXI N Ot T45.1X5 A ADVERSE EFFECT OF ANTINEOPLASTIC AND IMM 02/03/2017 GERMÁN ROXI Jay Ot Z51.11 ENCOUNTER FOR ANTINEOPLASTIC CHEMOTHERAP 02/03/2017 GERMÁNROXI Ot Z79.84 DETENTION (CURRENT) USE OF ORAL HYPOGLYC 02/03/2017 GERMÁNROXI N Ot Z79.899 OTHER RELIABILITY TECHNICIAN (CURRENT) DRUG THERAPY 02/03/2017 GERMÁNROXI Ot Z87.891 PERSONAL HISTORY OF NICOTINE DEPENDENCE 02/03/2017 ROXI DUNLAP Ot Z95.5 PRESENCE OF CORONARY ANGIOPLASTY IMPLANT 02/25/2017 GERMÁNROXI N Ot C83.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, LYMPH NOD 02/25/2017 GERMÁNROXI N Ot Z01.89 ENCOUNTER FOR OTHER SPECIFIED SPECIAL EX 02/25/2017 GERMÁNROXI Ot C83.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, LYMPH NOD 02/25/2017 GERMÁNROIX N Ot Z01.89 ENCOUNTER FOR OTHER SPECIFIED SPECIAL EX 03/02/2017 GERMÁNROXI N Ot C83.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, LYMPH NOD 03/02/2017 GERMÁNROXI N Ot Z01.89 ENCOUNTER FOR OTHER SPECIFIED SPECIAL EX 03/05/2017 GERMÁNROXI N Ot C83.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, LYMPH NOD 03/05/2017 GERMÁNROXI Ot 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 03/05/2017 ROXI DUNLAP N Ot E11.9 TYPE 2 DIABETES MELLITUS WITHOUT COMPLIC 03/05/2017 ROXI DUNLAP Ot E78.5 HYPERLIPIDEMIA, UNSPECIFIED 03/05/2017 ROXI DUNLAP Ot I10 ESSENTIAL (PRIMARY) HYPERTENSION 03/05/2017 ROXI DUNLAP Ot I25.10 ATHSCL HEART DISEASE OF [place] CORONARY 03/05/2017 ROXI DUNLAP Ot T45.1X5 A ADVERSE EFFECT OF ANTINEOPLASTIC AND IMM 03/05/2017 ROXI DUNLAP Ot Z51.11 ENCOUNTER FOR ANTINEOPLASTIC CHEMOTHERAP 03/05/2017 ROXI DUNLAP Ot Z79.84 DETENTION (CURRENT) USE OF ORAL HYPOGLYC 03/05/2017 ROXI DUNLAP Ot Z79.899 OTHER DETENTION (CURRENT) DRUG THERAPY 03/05/2017 ROXI DUNLAP Pierre Ot Z87.891 PERSONAL HISTORY OF NICOTINE DEPENDENCE 03/05/2017 GERMÁN ROXI Jay Ot Z95.5 PRESENCE OF CORONARY ANGIOPLASTY IMPLANT 03/25/2017 ROXI DUNLAP Pierre Ot C83.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, LYMPH NOD 03/25/2017 GERMÁN VLADIMIRSEBASTIEN Pierre Ot Z01.89 ENCOUNTER FOR OTHER SPECIFIED SPECIAL EX 03/25/2017 ROXI DUNLAP Pierre Ot C83.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, LYMPH NOD 03/25/2017 GERMÁN VLADIMIRSEBASTIEN Pierre Ot Z01.89 ENCOUNTER FOR OTHER SPECIFIED SPECIAL EX 04/08/2017 BEATRICEAPRIL PROFESSOR OF BIOCHEMISTRY Ot E78.4 OTHER HYPERLIPIDEMIA 04/08/2017 APRIL BARRON L PROFESSOR OF BIOCHEMISTRY Ot I 10 ESSENTIAL (PRIMARY) HYPERTENSION 04/08/2017 KASANDRAMAGENAPRIL L PROFESSOR OF BIOCHEMISTRY Ot I25.10 ATHSCL HEART DISEASE OF [place] CORONARY 04/08/2017 KASANDRAMAGENAPRIL PROFESSOR OF BIOCHEMISTRY Ot I65.23 OCCLUSION AND STENOSIS OF [place]ILATERAL [place] 04/26/2017 ROXI DUNLAP Pierre Ot C83.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, LYMPH NOD 04/26/2017 ROXI DUNLAP Pierre Ot 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 04/26/2017 GERMÁN, ROXI Jay Ot E11.9 TYPE 2 DIABETES MELLITUS WITHOUT COMPLIC 04/26/2017 GERMÁN VLADIMIRSEBASTIEN Pierre Ot E78.5 HYPERLIPIDEMIA, UNSPECIFIED 04/26/2017 GERMÁN VLADIMIRSEBASTIEN Pierre Ot I10 ESSENTIAL (PRIMARY) HYPERTENSION 04/26/2017 GERMÁN, ROXI Jay Ot I25.10 ATHSCL HEART DISEASE OF [place] CORONARY 04/26/2017 GERMÁN VLADIMIRSEBASTIEN Pierre Ot T45.1X5 A ADVERSE EFFECT OF ANTINEOPLASTIC AND IMM 04/26/2017 GERMÁN ROXI Jay Ot Z51.11 ENCOUNTER FOR ANTINEOPLASTIC CHEMOTHERAP 04/26/2017 GERMÁNROXI Ot Z79.84 DETENTION (CURRENT) USE OF ORAL HYPOGLYC 04/26/2017 GERMÁNROXI Ot Z79.899 OTHER DETENTION (CURRENT) DRUG THERAPY 04/26/2017 GERMÁN VLADIMIRSEBASTIEN Pierre Ot Z87.891 PERSONAL HISTORY OF NICOTINE DEPENDENCE 04/26/2017 ROXI DUNLAP Ot Z95.5 PRESENCE OF CORONARY ANGIOPLASTY IMPLANT 04/28/2017 Ot V72.84 EXA M PRE- OPERATIVE NOS 04/28/2017 Ot 272.4 HYPE RLIPIDEMIA NEC/NOS 04/28/2017 Ot 414.00 COR ON ATHEROSCLER NOS TYPE VESSEL, NATIV 04/28/2017 Ot V58.69 OTH MED,LT,CURRENT USE 04/28/2017 Ot 241.0 NONT OX UNINODULAR GOITER 04/28/2017 Ot 240.9 GOIT ER NOS 04/28/2017 Ot 241.0 NONT OX UNINODULAR GOITER 04/28/2017 Ot 272.4 HYPE RLIPIDEMIA NEC/NOS 04/28/2017 Ot 401.9 HYPE RTENSION NOS 04/28/2017 Ot 414.00 COR ON ATHEROSCLER NOS TYPE VESSEL, NATIV 04/28/2017 Ot V58.69 OTH MED,LT,CURRENT USE 04/28/2017 Ot 414.00 COR ON ATHEROSCLER NOS TYPE VESSEL, NATIV 04/28/2017 Ot V45.82 PER CUTANEOUS TRANSLUM CORON ANGIOPLASTY 04/28/2017 VICTOR M FERRARI FACKailash, ALI FACP CCDS Ot 272.4 HYPERLIPIDEMIA NEC/NOS 04/28/2017 VICTOR M FERRARI FACC, ALI FACP CCDS Ot 414.01 CORONARY ATHEROSCLEROSIS OF [place] CORON 04/28/2017 VICTOR M FERRARI FACC, ALI FACP CCDS Ot V58.69 OTH MED,LT,CURRENT USE 04/28/2017 BAIMA, APRIL L PROFESSOR OF BIOCHEMISTRY Ot 272.4 HYPERLIPIDEMIA NEC/NOS 04/28/2017 BAIMA, APRIL L PROFESSOR OF BIOCHEMISTRY Ot 401.9 HYPERTENSION NOS 04/28/2017 BAIMA, APRIL L PROFESSOR OF BIOCHEMISTRY Ot 414.01 CORONARY ATHEROSCLEROSIS OF [place] CORON 04/28/2017 BAIMA, APRIL L PROFESSOR OF BIOCHEMISTRY Ot 272.4 HYPERLIPIDEMIA NEC/NOS 04/28/2017 BAIMA, APRIL L PROFESSOR OF BIOCHEMISTRY Ot V58.69 OTH MED,LT,CURRENT USE 04/28/2017 BAIMA, APRIL L PROFESSOR OF BIOCHEMISTRY Ot 272.4 HYPERLIPIDEMIA NEC/NOS 04/28/2017 BAIMA, APRIL L PROFESSOR OF BIOCHEMISTRY Ot 414.00 CORON ATHEROSCLER NOS TYPE VESSEL, NATIV 04/28/2017 BAIMA, APRIL L PROFESSOR OF BIOCHEMISTRY Ot 272.4 HYPERLIPIDEMIA NEC/NOS 04/28/2017 BAIMA, APRIL L PROFESSOR OF BIOCHEMISTRY Ot 414.00 CORON ATHEROSCLER NOS TYPE VESSEL, NATIV 04/28/2017 BAIAPRIL US L PROFESSOR OF BIOCHEMISTRY Ot 447.9 ARTERIAL DISEASE NOS 04/28/2017 LARRY KUO DO Ot 241.0 NONTOX UNINODULAR GOITER 04/28/2017 KASANDRAMAGEN APRIL L PROFESSOR OF BIOCHEMISTRY Ot 272.4 HYPERLIPIDEMIA NEC/NOS 04/28/2017 BAIMAGEN APRIL L PROFESSOR OF BIOCHEMISTRY Ot 414.00 CORON ATHEROSCLER NOS TYPE VESSEL, NATIV 04/28/2017 BAIMAGEN APRIL L PROFESSOR OF BIOCHEMISTRY Ot 272.4 HYPERLIPIDEMIA NEC/NOS 04/28/2017 LESLIE FERRARI, VENKAT Wiley Ot C61 MALIGNANT NEOPLASM OF PROSTATE 04/28/2017 BAIMAGEN APRIL L PROFESSOR OF BIOCHEMISTRY Ot E78.5 HYPERLIPIDEMIA, UNSPECIFIED 04/28/2017 BAIMA APRIL L PROFESSOR OF BIOCHEMISTRY Ot I25.10 ATHSCL HEART DISEASE OF [place] CORONARY 04/28/2017 BAIMAGEN APRIL L PROFESSOR OF BIOCHEMISTRY Ot E78.5 HYPERLIPIDEMIA, UNSPECIFIED 04/28/2017 BAIMA, APRIL L PROFESSOR OF BIOCHEMISTRY Ot I25.10 ATHSCL HEART DISEASE OF [place] CORONARY 04/28/2017 VICTOR M FERRARI FACC, ALI FACP CCDS Ot E78.4 OTHER HYPERLIPIDEMIA 04/28/2017 VICTOR M FERRARI FACC, ALI FACP CCDS Ot I10 ESSENTIAL (PRIMARY) HYPERTENSION 04/28/2017 VICTOR M FERRARI FACC, ALI FACP CCDS Ot I25.10 ATHSCL HEART DISEASE OF [place] CORONARY 04/28/2017 VICTOR M FERRARI FACC, ALI FACP CCDS Ot I65.23 OCCLUSION AND STENOSIS OF [place]IL[place]AL [place] 04/28/2017 VICTOR M FERRARI FACC, ALI FACP CCDS Ot Z72.0 TOBACCO USE 04/28/2017 LARRY KUO DO Ot M25.531 PAIN IN RIGHT WRIST 04/28/2017 LARRY KUO DO Ot E04.1 NONTOXIC SINGLE THYROID NODULE 04/28/2017 LARRY KUO DO Ot R22.1 LOCALIZED SWELLING, MASS AND LUMP, NECK 04/28/2017 LARRY KUO DO Ot M89.9 DISORDER OF BONE, UNSPECIFIED 04/28/2017 LARRY KUO DO Ot R22.1 LOCALIZED SWELLING, MASS AND LUMP, NECK 04/28/2017 LARRY KUO DO Ot R59.0 LOCALIZED ENLARGED LYMPH NODES 04/28/2017 LARRY KUO DO Ot M89.9 DISORDER OF BONE, UNSPECIFIED 04/28/2017 SHIELA CARTER LARRY Wiley Ot R59.0 LOCALIZED ENLARGED LYMPH NODES 04/28/2017 SHIELA CARTER LARRY Wiley Ot R22.1 LOCALIZED SWELLING, MASS AND LUMP, NECK 04/28/2017 SHIELA CARTER LARRY Wiley Ot C83.30 DIFFUSE LARGE B-CELL LYMPHOMA, UNSPECIFI 04/28/2017 SHIELA CARTER LARRY Wiley Ot J35.9 CHRONIC DISEASE OF TONSILS AND ADENOIDS, 04/28/2017 SHIELA CARTER LARRY Wiley Ot R59.0 LOCALIZED ENLARGED LYMPH NODES 04/28/2017 ROXI DUNLAP Ot C85.90 NON-[place] LYMPHOMA, UNSPECIFIED, UNSPE 04/28/2017 ROXI DUNLAP Ot Z01.810 ENCOUNTER FOR PREPROCEDURAL CARDIOVASCUL 04/28/2017 APRIL BARRON PROFESSOR OF BIOCHEMISTRY Ot E78.5 HYPERLIPIDEMIA, UNSPECIFIED 04/28/2017 APRIL BARRON PROFESSOR OF BIOCHEMISTRY Ot I 10 ESSENTIAL (PRIMARY) HYPERTENSION 04/28/2017 APRIL BARRON PROFESSOR OF BIOCHEMISTRY Ot I25.10 ATHSCL HEART DISEASE OF [place] CORONARY 04/28/2017 APRIL BARRON PROFESSOR OF BIOCHEMISTRY Ot I77.9 DISORDER OF ARTERIES AND ARTERIOLES, UNS 04/28/2017 JUSTIN ARCEO PROFESSOR OF BIOCHEMISTRY Ot C83.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, LYMPH NOD 04/28/2017 ROXI DUNLAP Ot C83.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, LYMPH NOD 04/28/2017 ROXI DUNLAP Ot Z01.89 ENCOUNTER FOR OTHER SPECIFIED SPECIAL EX 04/28/2017 APRIL BARRON PROFESSOR OF BIOCHEMISTRY Ot E78.4 OTHER HYPERLIPIDEMIA 04/28/2017 APRIL BARRON PROFESSOR OF BIOCHEMISTRY Ot I 10 ESSENTIAL (PRIMARY) HYPERTENSION 04/28/2017 APRIL BARRON PROFESSOR OF BIOCHEMISTRY Ot I25.10 ATHSCL HEART DISEASE OF [place] CORONARY 04/28/2017 APRIL BARRON PROFESSOR OF BIOCHEMISTRY Ot I65.23 OCCLUSION AND STENOSIS OF [place]ILATERAL [place] 04/28/2017 ARMOND FERRARI, NATASHA Ot C83.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, LYMPH NOD 04/28/2017 ARMOND FERRARI, NATASHA Ot 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 04/28/2017 NATASHA LEAHY MD Ot E11.9 TYPE 2 DIABETES MELLITUS WITHOUT COMPLIC 04/28/2017 NATASHA LEAHY MD Ot E78.5 HYPERLIPIDEMIA, UNSPECIFIED 04/28/2017 NATASHA LEAHY MD, Ot I10 ESSENTIAL (PRIMARY) HYPERTENSION 04/28/2017 NATASHA LEAHY MD Ot I25.10 ATHSCL HEART DISEASE OF [place] CORONARY 04/28/2017 NATASHA LEAHY MD, Ot T45.1X5 A ADVERSE EFFECT OF ANTINEOPLASTIC AND IMM 04/28/2017 NATASHA LEAHY MD, Ot Z51.11 ENCOUNTER FOR ANTINEOPLASTIC CHEMOTHERAP 04/28/2017 NATASHA LEAHY MD, Ot Z79.84 RELIABILITY TECHNICIAN (CURRENT) USE OF ORAL HYPOGLYC 04/28/2017 NATASHA LEAHY MD, Ot Z79.899 OTHER DETENTION (CURRENT) DRUG THERAPY 04/28/2017 NATASHA LEAHY MD, Ot Z87.891 PERSONAL HISTORY OF NICOTINE DEPENDENCE 04/28/2017 NATASHA LEAHY MD, Ot Z95.5 PRESENCE OF CORONARY ANGIOPLASTY IMPLANT 04/29/2017 VICTOR M FERRARI FACC, ADONAY FACP CCDS Ot E78.4 OTHER HYPERLIPIDEMIA 04/29/2017 VICTOR M FERRARI FACC, ALI FACP CCDS Ot I10 ESSENTIAL (PRIMARY) HYPERTENSION 04/29/2017 VICTOR M FERRARI FACC, ALI FACP CCDS Ot I25.10 ATHSCL HEART DISEASE OF [place] CORONARY 04/29/2017 VICTOR M FERRARI FACC, ALI FACP CCDS Ot I65.23 OCCLUSION AND STENOSIS OF BILATERAL [place] 04/29/2017 VICTOR M FERRARI FACC, ALI FACP CCDS Ot K76.9 LIVER DISEASE, UNSPECIFIED 05/04/2017 VICTOR M FERRARI FACC, ALI FACP CCDS Ot E78.4 OTHER HYPERLIPIDEMIA 05/04/2017 VICTOR M FERRARI FACC, ALI FACP CCDS Ot I10 ESSENTIAL (PRIMARY) HYPERTENSION 05/04/2017 VICTOR M FERRARI FACC, ALI FACP CCDS Ot I25.10 ATHSCL HEART DISEASE OF [place] CORONARY 05/04/2017 VICTOR M FERRARI FACC, ALI FACP CCDS Ot I65.23 OCCLUSION AND STENOSIS OF [place]AL [place] 05/04/2017 VICTOR M FERRARI FACC, ALI FACP CCDS Ot K76.9 LIVER DISEASE, UNSPECIFIED 05/06/2017 ROXI DUNLAP Ot C83.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, LYMPH NOD 05/06/2017 GERMÁN, BOBAN N Ot 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 05/06/2017 ROXI DUNLAP Ot E11.9 TYPE 2 DIABETES MELLITUS WITHOUT COMPLIC 05/06/2017 ROXI DUNLAP Ot E78.5 HYPERLIPIDEMIA, UNSPECIFIED 05/06/2017 ROXI DUNLAP N Ot I10 ESSENTIAL (PRIMARY) HYPERTENSION 05/06/2017 ROXI DUNLAP Ot I25.10 ATHSCL HEART DISEASE OF [place] CORONARY 05/06/2017 ROXI DUNLAP Ot T45.1X5 A ADVERSE EFFECT OF ANTINEOPLASTIC AND IMM 05/06/2017 ROXI DUNLAP Ot Z79.84 DETENTION (CURRENT) USE OF ORAL HYPOGLYC 05/06/2017 ROXI DUNLAP N Ot Z79.899 OTHER DETENTION (CURRENT) DRUG THERAPY 05/06/2017 ROXI DUNLAP Pierre Ot Z87.891 PERSONAL HISTORY OF NICOTINE DEPENDENCE 05/06/2017 ROXI DUNLAP Pierre Ot Z95.5 PRESENCE OF CORONARY ANGIOPLASTY IMPLANT 05/20/2017 VICTOR M FERRARI FACC, ADONAY FACP CCDS Ot C85.90 NON-[place] LYMPHOMA, UNSPECIFIED, UNSPE 05/20/2017 VICTOR M FERRARI FACC, ALI FACP CCDS Ot E11.9 TYPE 2 DIABETES MELLITUS WITHOUT COMPLIC 05/20/2017 VICTOR M FERRARI FACC, ALI FACP CCDS Ot E78.5 HYPERLIPIDEMIA, UNSPECIFIED 05/20/2017 VICTOR M FERRARI FACC, ALI FACP CCDS Ot I10 ESSENTIAL (PRIMARY) HYPERTENSION 05/20/2017 VICTOR M FERRARI FACC, ADONAY FACP CCDS Ot I25.10 ATHSCL HEART DISEASE OF [place] CORONARY 05/20/2017 VICTOR M FERRARI FACC, ALI FACP CCDS Ot 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 [place] 05/20/2017 VICTOR M FERRARI FACC, ALI FACP CCDS Ot R07.89 OTHER CHEST PAIN 05/20/2017 VICTOR M FERRARI FACC, ALI FACP CCDS Ot Z79.84 DETENTION (CURRENT) USE OF ORAL HYPOGLYC 05/20/2017 VICTOR M FERRARI FACC, ALI FACP CCDS Ot Z79.899 OTHER DETENTION (CURRENT) DRUG THERAPY 05/20/2017 VICTOR M FERRARI FACC, ALI FACP CCDS Ot Z86.711 PERSONAL HISTORY OF PULMONARY EMBOLISM 05/20/2017 VICTOR M FERRARI FACC, ADONAY FACP CCDS Ot Z87.891 PERSONAL HISTORY OF NICOTINE DEPENDENCE 05/20/2017 VICTOR M FERRARI FACC, ADONAY FACP CCDS Ot Z95.5 PRESENCE OF CORONARY ANGIOPLASTY IMPLANT 05/22/2017 VICTOR M FERRARI FACC, ALI FACP CCDS Ot E78.4 OTHER HYPERLIPIDEMIA 05/22/2017 VICTOR M FERRARI FACC, ALI FACP CCDS Ot I10 ESSENTIAL (PRIMARY) HYPERTENSION 05/22/2017 VICTOR M FERRARI FACC, ALI FACP CCDS Ot I25.10 ATHSCL HEART DISEASE OF [place] CORONARY 05/22/2017 VICTOR M FERRARI FACC, ADONAY FACP CCDS Ot I65.23 OCCLUSION AND STENOSIS OF [place]AL [place] 05/22/2017 VICTOR M FERRARI FACC, ADONAY FACP CCDS Ot K76.9 LIVER DISEASE, UNSPECIFIED 05/23/2017 NATASHA LEAHY MD Ot C83.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, LYMPH NOD 05/23/2017 NATASHA LEAHY MD Ot 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 05/23/2017 NATASHA LEAHY MD Ot E11.9 TYPE 2 DIABETES MELLITUS WITHOUT COMPLIC 05/23/2017 NATASHA LEAHY MD, Ot E78.5 HYPERLIPIDEMIA, UNSPECIFIED 05/23/2017 NATASHA LEAHY MD Ot I10 ESSENTIAL (PRIMARY) HYPERTENSION 05/23/2017 NATASHA LEAHY MD, Ot I25.10 ATHSCL HEART DISEASE OF [place] CORONARY 05/23/2017 NATASHA LEAHY MD, Ot T45.1X5 A ADVERSE EFFECT OF ANTINEOPLASTIC AND IMM 05/23/2017 NATASHA LEAHY MD Ot Z79.84 DETENTION (CURRENT) USE OF ORAL HYPOGLYC 05/23/2017 NATASHA LEAHY MD Ot Z79.899 OTHER RELIABILITY TECHNICIAN (CURRENT) DRUG THERAPY 05/23/2017 NATASHA LEAHY MD, Ot Z87.891 PERSONAL HISTORY OF NICOTINE DEPENDENCE 05/23/2017 NATASHA LEAHY MD Ot Z95.5 PRESENCE OF CORONARY ANGIOPLASTY IMPLANT 05/26/2017 VICTOR M FERRARI FACC, ADONAY GREGORYP CCDS Ot E78.4 OTHER HYPERLIPIDEMIA 05/26/2017 VICTOR M FERRARI FACC, ADNOAY FACP CCDS Ot I10 ESSENTIAL (PRIMARY) HYPERTENSION 05/26/2017 VICTOR M FERRARI FACC, ALI FACP CCDS Ot I25.10 ATHSCL HEART DISEASE OF [place] CORONARY 05/26/2017 VICTOR M FERRARI FACC, ADONAY FACP CCDS Ot I65.23 OCCLUSION AND STENOSIS OF [place]AL [place] 05/26/2017 VICTOR M FERRARI FACC, ADONAY FACP CCDS Ot K76.9 LIVER DISEASE, UNSPECIFIED 06/02/2017 NATASHA LAEHY MD, Ot C83.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, LYMPH NOD 06/02/2017 NATASHA LEAHY MD Ot 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 06/02/2017 NATASHA LEAHY MD Ot E11.9 TYPE 2 DIABETES MELLITUS WITHOUT COMPLIC 06/02/2017 NATASHA LEAHY MD, Ot E78.5 HYPERLIPIDEMIA, UNSPECIFIED 06/02/2017 NATASHA LEAHY MD Ot I10 ESSENTIAL (PRIMARY) HYPERTENSION 06/02/2017 NATASHA LEAHY MD, Ot I25.10 ATHSCL HEART DISEASE OF [place] CORONARY 06/02/2017 NATASHA LEAHY MD, Ot T45.1X5 A ADVERSE EFFECT OF ANTINEOPLASTIC AND IMM 06/02/2017 NATASHA LEAHY MD, Ot Z79.84 DETENTION (CURRENT) USE OF ORAL HYPOGLYC 06/02/2017 NATASHA LEAHY MD, Ot Z79.899 OTHER DETENTION (CURRENT) DRUG THERAPY 06/02/2017 NATASHA LEAHY MD, Ot Z87.891 PERSONAL HISTORY OF NICOTINE DEPENDENCE 06/02/2017 NATASHA LEAHY MD Ot Z95.5 PRESENCE OF CORONARY ANGIOPLASTY IMPLANT 06/03/2017 VICTOR M FERRARI FACC, ADONAY GREGORYP CCDS Ot C85.90 NON-[place] LYMPHOMA, UNSPECIFIED, UNSPE 06/03/2017 VICTOR M FERRARI FACC, ADONAY GREGORYP CCDS Ot E11.9 TYPE 2 DIABETES MELLITUS WITHOUT COMPLIC 06/03/2017 VICTOR M FERRARI FACC, ADONAY FACP CCDS Ot E78.5 HYPERLIPIDEMIA, UNSPECIFIED 06/03/2017 ADONAY DOW MD, FACC FACP CCDS Ot I10 ESSENTIAL (PRIMARY) HYPERTENSION 06/03/2017 ADONAY DOW MD, FACC FACP CCDS Ot I25.10 ATHSCL HEART DISEASE OF [place] CORONARY 06/03/2017 ADONAY DOW MD, FACC FACP CCDS Ot 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 [place] 06/03/2017 ADONAY DOW MD, FACC FACP CCDS Ot R07.89 OTHER CHEST PAIN 06/03/2017 VICTOR M FERRARI FACC, ADONAY FACP CCDS Ot Z79.84 RELIABILITY TECHNICIAN (CURRENT) USE OF ORAL HYPOGLYC 06/03/2017 VICTOR M FERRARI FAC, ALI FACP CCDS Ot Z79.899 OTHER RELIABILITY TECHNICIAN (CURRENT) DRUG THERAPY 06/03/2017 VICTOR M FERRARI FAC, ALI FACP CCDS Ot Z86.711 PERSONAL HISTORY OF PULMONARY EMBOLISM 06/03/2017 VICTOR M FERRARI FAC, ALI FACP CCDS Ot Z87.891 PERSONAL HISTORY OF NICOTINE DEPENDENCE 06/03/2017 VICTOR M FERRARI FAC, ALI FACP CCDS Ot Z95.5 PRESENCE OF CORONARY ANGIOPLASTY IMPLANT 06/03/2017 NATASHA LEAHY MD Ot C83.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, LYMPH NOD 06/03/2017 NATASHA LEAHY MD Ot 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 06/03/2017 NATASHA LEAHY MD Ot E11.9 TYPE 2 DIABETES MELLITUS WITHOUT COMPLIC 06/03/2017 NATASHA LEAHY MD Ot E78.5 HYPERLIPIDEMIA, UNSPECIFIED 06/03/2017 NATASHA LEAHY MD Ot I10 ESSENTIAL (PRIMARY) HYPERTENSION 06/03/2017 NATASHA LEAHY MD Ot I25.10 ATHSCL HEART DISEASE OF [place] CORONARY 06/03/2017 NATASHA LEAHY MD Ot T45.1X5 A ADVERSE EFFECT OF ANTINEOPLASTIC AND IMM 06/03/2017 NATASHA LEAHY MD Ot Z79.84 DETENTION (CURRENT) USE OF ORAL HYPOGLYC 06/03/2017 NATASHA LEAHY MD Ot Z79.899 OTHER RELIABILITY TECHNICIAN (CURRENT) DRUG THERAPY 06/03/2017 NATASHA LEAHY MD Ot Z87.891 PERSONAL HISTORY OF NICOTINE DEPENDENCE 06/03/2017 NATASHA LEAHY MD Ot Z95.5 PRESENCE OF CORONARY ANGIOPLASTY IMPLANT 06/23/2017 NATASHA LEAHY MD Ot C83.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, LYMPH NOD 06/23/2017 NATASHA LEAHY MD Ot 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 06/23/2017 NATASHA LEAHY MD Ot E11.9 TYPE 2 DIABETES MELLITUS WITHOUT COMPLIC 06/23/2017 NATASHA LEAHY MD Ot E78.5 HYPERLIPIDEMIA, UNSPECIFIED 06/23/2017 NATASHA LEAHY MD Ot I10 ESSENTIAL (PRIMARY) HYPERTENSION 06/23/2017 NATASHA LEAHY MD Ot I25.10 ATHSCL HEART DISEASE OF [place] CORONARY 06/23/2017 NATASHA LEAHY MD, Ot T45.1X5 A ADVERSE EFFECT OF ANTINEOPLASTIC AND IMM 06/23/2017 NATASHA LEAHY MD Ot Z79.84 DETENTION (CURRENT) USE OF ORAL HYPOGLYC 06/23/2017 NATASHA LEAHY MD Ot Z79.899 OTHER RELIABILITY TECHNICIAN (CURRENT) DRUG THERAPY 06/23/2017 NATASHA LEAHY MD Ot Z87.891 PERSONAL HISTORY OF NICOTINE DEPENDENCE 06/23/2017 NATASHA LEAHY MD Ot Z95.5 PRESENCE OF CORONARY ANGIOPLASTY IMPLANT 06/26/2017 NATASHA LEAHY MD Ot C83.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, LYMPH NOD 06/26/2017 NATASHA LEAHY MD Ot 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 06/26/2017 NATASHA LEAHY MD Ot E11.9 TYPE 2 DIABETES MELLITUS WITHOUT COMPLIC 06/26/2017 NATASHA LEAHY MD Ot E78.5 HYPERLIPIDEMIA, UNSPECIFIED 06/26/2017 NATASHA LEAHY MD Ot I10 ESSENTIAL (PRIMARY) HYPERTENSION 06/26/2017 NATASHA LEAHY MD Ot I25.10 ATHSCL HEART DISEASE OF [place] CORONARY 06/26/2017 NATASHA LEAHY MD Ot T45.1X5 A ADVERSE EFFECT OF ANTINEOPLASTIC AND IMM 06/26/2017 NATASHA LEAHY MD Ot Z79.84 DETENTION (CURRENT) USE OF ORAL HYPOGLYC 06/26/2017 NATASHA LEAHY MD Ot Z79.899 OTHER DETENTION (CURRENT) DRUG THERAPY 06/26/2017 NATASHA LEAHY MD Ot Z87.891 PERSONAL HISTORY OF NICOTINE DEPENDENCE 06/26/2017 NATASHA LEAHY MD Ot Z95.5 PRESENCE OF CORONARY ANGIOPLASTY IMPLANT 08/20/2017 NATASHA LEAHY MD, Ot C83.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, LYMPH NOD 08/20/2017 NATASHA LEAHY MD, Ot 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 08/20/2017 NATASHA LEAHY MD Ot E11.9 TYPE 2 DIABETES MELLITUS WITHOUT COMPLIC 08/20/2017 NATASHA LEAHY MD Ot E78.5 HYPERLIPIDEMIA, UNSPECIFIED 08/20/2017 NATASHA LEAHY MD Ot I10 ESSENTIAL (PRIMARY) HYPERTENSION 08/20/2017 NATASHA LEAHY MD Ot I25.10 ATHSCL HEART DISEASE OF [place] CORONARY 08/20/2017 NATASHA LEAHY MD Ot T45.1X5 A ADVERSE EFFECT OF ANTINEOPLASTIC AND IMM 08/20/2017 ARMOND FERRARI, NATASHA Ot Z79.84 RELIABILITY TECHNICIAN (CURRENT) USE OF ORAL HYPOGLYC 08/20/2017 NATASHA LEAHY MD Ot Z79.899 OTHER RELIABILITY TECHNICIAN (CURRENT) DRUG THERAPY 08/20/2017 ARMOND FERRARI, NATASHA Ot Z87.891 PERSONAL HISTORY OF NICOTINE DEPENDENCE 08/20/2017 ARMODN FERRARI, NATASHA Ot Z95.5 PRESENCE OF CORONARY ANGIOPLASTY IMPLANT 08/26/2017 BEAN PEOPLES MD Ot K21.9 GASTRO-ESOPHAGEAL REFLUX DISEASE WITHOUT 08/26/2017 RICHELLE FERRARI, BEAN Love Ot R10.13 EPIGASTRIC PAIN 08/26/2017 BEAN PEOPLES MD Ot Z01.818 ENCOUNTER FOR OTHER PREPROCEDURAL EXAMIN 08/27/2017 BEAN PEOPLES MD Ot K21.9 GASTRO-ESOPHAGEAL REFLUX DISEASE WITHOUT 08/27/2017 BEAN PEOPLES MD Ot R10.13 EPIGASTRIC PAIN 08/27/2017 BEAN PEOPLES MD Ot Z01.818 ENCOUNTER FOR OTHER PREPROCEDURAL EXAMIN 09/01/2017 BEAN PEOPLES MD Ot K21.9 GASTRO-ESOPHAGEAL REFLUX DISEASE WITHOUT 09/01/2017 BEAN PEOPLES MD M Ot R10.13 EPIGASTRIC PAIN 09/01/2017 BEAN PEOPLES MD Ot Z01.818 ENCOUNTER FOR OTHER PREPROCEDURAL EXAMIN 09/01/2017 BEAN PEOPLES MD Ot E11.9 TYPE 2 DIABETES MELLITUS WITHOUT COMPLIC 09/01/2017 BEAN PEOPLES MD Ot E78.00 PURE HYPERCHOLESTEROLEMIA, UNSPECIFIED 09/01/2017 BEAN PEOPLES MD Ot I1 0 ESSENTIAL (PRIMARY) HYPERTENSION 09/01/2017 BEAN PEOPLES MD Ot I25.10 ATHSCL HEART DISEASE OF [place] CORONARY 09/01/2017 BEAN PEOPLES MD Ot K21.0 GASTRO-ESOPHAGEAL REFLUX DISEASE WITH ES 09/01/2017 BEAN PEOPLES MD Ot K25.9 GASTRIC ULCER, UNSP ACUTE OR CHRONIC, 09/01/2017 BEAN PEOPLES MD Ot K44.9 DIAPHRAGMATIC HERNIA WITHOUT OBSTRUCTION 09/01/2017 BEAN PEOPLES MD Ot Z79.84 DETENTION (CURRENT) USE OF ORAL HYPOGLYC 09/01/2017 BEAN PEOPLES MD Ot Z79.899 OTHER DETENTION (CURRENT) DRUG THERAPY 09/01/2017 BEAN PEOPLES MD Ot Z87.891 PERSONAL HISTORY OF NICOTINE DEPENDENCE 09/01/2017 BEAN PEOPLES MD Ot Z88.2 ALLERGY STATUS TO SULFONAMIDES STATUS 09/02/2017 BEAN PEOPLES MD Ot E11.9 TYPE 2 DIABETES MELLITUS WITHOUT COMPLIC 09/02/2017 BEAN PEOPLES MD Ot E78.00 PURE HYPERCHOLESTEROLEMIA, UNSPECIFIED 09/02/2017 BEAN PEOPLES MD Ot I1 0 ESSENTIAL (PRIMARY) HYPERTENSION 09/02/2017 BEAN PEOPLES MD Ot I25.10 ATHSCL HEART DISEASE OF [place] CORONARY 09/02/2017 BEAN PEOPLES MD Ot K21.0 GASTRO-ESOPHAGEAL REFLUX DISEASE WITH ES 09/02/2017 BEAN PEOLPES MD Ot K25.9 GASTRIC ULCER, UNSP ACUTE OR CHRONIC, 09/02/2017 BEAN PEOPLES MD Ot K44.9 DIAPHRAGMATIC HERNIA WITHOUT OBSTRUCTION 09/02/2017 BEAN PEOPLES MD Ot Z79.84 RELIABILITY TECHNICIAN (CURRENT) USE OF ORAL HYPOGLYC 09/02/2017 BEAN PEOPLES MD Ot Z79.899 OTHER DETENTION (CURRENT) DRUG THERAPY 09/02/2017 BEAN PEOPLES MD Ot Z87.891 PERSONAL HISTORY OF NICOTINE DEPENDENCE 09/02/2017 BEAN PEOPLES MD Ot Z88.2 ALLERGY STATUS TO SULFONAMIDES STATUS 09/07/2017 BEAN PEOPLES MD Ot E11.9 TYPE 2 DIABETES MELLITUS WITHOUT COMPLIC 09/07/2017 BEAN PEOPLES MD Ot E78.00 PURE HYPERCHOLESTEROLEMIA, UNSPECIFIED 09/07/2017 BEAN PEOPLES MD Ot I1 0 ESSENTIAL (PRIMARY) HYPERTENSION 09/07/2017 BEAN PEOPLES MD Ot I25.10 ATHSCL HEART DISEASE OF [place] CORONARY 09/07/2017 BEAN PEOPLES MD Ot K21.0 GASTRO-ESOPHAGEAL REFLUX DISEASE WITH ES 09/07/2017 BEAN PEOPLES MD Ot K25.9 GASTRIC ULCER, UNSP ACUTE OR CHRONIC, 09/07/2017 BEAN PEOPLES MD Ot K44.9 DIAPHRAGMATIC HERNIA WITHOUT OBSTRUCTION 09/07/2017 BEAN PEOPLES MD Ot Z79.84 RELIABILITY TECHNICIAN (CURRENT) USE OF ORAL HYPOGLYC 09/07/2017 BEAN PEOPLES MD Ot Z79.899 OTHER RELIABILITY TECHNICIAN (CURRENT) DRUG THERAPY 09/07/2017 BEAN PEOPLES MD Ot Z87.891 PERSONAL HISTORY OF NICOTINE DEPENDENCE 09/07/2017 RICHELLE FERRARI, BEAN Love Ot Z88.2 ALLERGY STATUS TO SULFONAMIDES STATUS 09/09/2017 ARMOND FERRARI, NATASHA Ot C83.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, LYMPH NOD 09/09/2017 ARMOND FERRARI, NATASHA Ot K44.9 DIAPHRAGMATIC HERNIA WITHOUT OBSTRUCTION 09/09/2017 NATASHA LEAHY MD Ot R59.0 LOCALIZED ENLARGED LYMPH NODES 09/12/2017 NATASHA LEAHY MD, Ot C83.38 DIFFUSE LARGE [...] DUNLAP Ot I25.10 ATHSCL HEART DISEASE OF [place] CORONARY 09/19/2017 ROXI DUNLAP Ot Z79.84 DETENTION (CURRENT) USE OF ORAL HYPOGLYC 09/19/2017 ROXI DUNLAP Ot Z79.899 OTHER RELIABILITY TECHNICIAN (CURRENT) DRUG THERAPY 09/19/2017 ROXI DUNLAP Ot Z87.891 PERSONAL HISTORY OF NICOTINE DEPENDENCE 09/19/2017 ROXI DUNLAP Ot Z95.5 PRESENCE OF CORONARY ANGIOPLASTY IMPLANT 11/15/2017 Ot 241.0 NONT OX UNINODULAR GOITER 11/15/2017 Ot 240.9 GOIT ER NOS 11/15/2017 Ot 241.0 NONT OX UNINODULAR GOITER 11/15/2017 Ot 272.4 HYPE RLIPIDEMIA NEC/NOS 11/15/2017 Ot 401.9 HYPE RTENSION NOS 11/15/2017 Ot 414.00 COR ON ATHEROSCLER NOS TYPE VESSEL, NATIV 11/15/2017 Ot V58.69 OTH MED,LT,CURRENT USE 11/15/2017 Ot 414.00 COR ON ATHEROSCLER NOS TYPE VESSEL, NATIV 11/15/2017 Ot V45.82 PER CUTANEOUS TRANSLUM CORON ANGIOPLASTY 11/15/2017 VICTOR M FERRARI FACKailash, ALI FACP CCDS Ot 272.4 HYPERLIPIDEMIA NEC/NOS 11/15/2017 VICTOR M FERRARI FACC, ALI FACP CCDS Ot 414.01 CORONARY ATHEROSCLEROSIS OF [place] CORON 11/15/2017 VICTOR M FERRARI FACC, ALI FACP CCDS Ot V58.69 OTH MED,LT,CURRENT USE 11/15/2017 BAIMA, APRIL L PROFESSOR OF BIOCHEMISTRY Ot 272.4 HYPERLIPIDEMIA NEC/NOS 11/15/2017 BAIMA, APRIL L PROFESSOR OF BIOCHEMISTRY Ot 401.9 HYPERTENSION NOS 11/15/2017 BAIMA, APRIL L PROFESSOR OF BIOCHEMISTRY Ot 414.01 CORONARY ATHEROSCLEROSIS OF [place] CORON 11/15/2017 BAIMA, APRIL L PROFESSOR OF BIOCHEMISTRY Ot 272.4 HYPERLIPIDEMIA NEC/NOS 11/15/2017 BAIMA, APRIL L PROFESSOR OF BIOCHEMISTRY Ot V58.69 OTH MED,LT,CURRENT USE 11/15/2017 BAIMA, APRIL L PROFESSOR OF BIOCHEMISTRY Ot 272.4 HYPERLIPIDEMIA NEC/NOS 11/15/2017 BAIMA, APRIL L PROFESSOR OF BIOCHEMISTRY Ot 414.00 CORON ATHEROSCLER NOS TYPE VESSEL, NATIV 11/15/2017 BAIMA, APRIL L PROFESSOR OF BIOCHEMISTRY Ot 272.4 HYPERLIPIDEMIA NEC/NOS 11/15/2017 BAIMA, APRIL L PROFESSOR OF BIOCHEMISTRY Ot 414.00 CORON ATHEROSCLER NOS TYPE VESSEL, NATIV 11/15/2017 BAIMA, APRIL L PROFESSOR OF BIOCHEMISTRY Ot 447.9 ARTERIAL DISEASE NOS 11/15/2017 LARRY KUO DO A Ot 241.0 NONTOX UNINODULAR GOITER 11/15/2017 BAIMA, APRIL L PROFESSOR OF BIOCHEMISTRY Ot 272.4 HYPERLIPIDEMIA NEC/NOS 11/15/2017 BAIMA, APRIL L PROFESSOR OF BIOCHEMISTRY Ot 414.00 CORON ATHEROSCLER NOS TYPE VESSEL, NATIV 11/15/2017 BAIMA, APRIL L PROFESSOR OF BIOCHEMISTRY Ot 272.4 HYPERLIPIDEMIA NEC/NOS 11/15/2017 VENKAT NELSON MD Ot C61 MALIGNANT NEOPLASM OF PROSTATE 11/15/2017 BAIMA, APRIL L PROFESSOR OF BIOCHEMISTRY Ot E78.5 HYPERLIPIDEMIA, UNSPECIFIED 11/15/2017 BAIMA, APRIL L PROFESSOR OF BIOCHEMISTRY Ot I25.10 ATHSCL HEART DISEASE OF [place] CORONARY 11/15/2017 APRIL BARRON PROFESSOR OF BIOCHEMISTRY Ot E78.5 HYPERLIPIDEMIA, UNSPECIFIED 11/15/2017 APRIL BARRON PROFESSOR OF BIOCHEMISTRY Ot I25.10 ATHSCL HEART DISEASE OF [place] CORONARY 11/15/2017 VICTOR M FERRARI FAC, ALI FACP CCDS Ot E78.4 OTHER HYPERLIPIDEMIA 11/15/2017 VICTOR M FERRARI FAC, ALI FACP CCDS Ot I10 ESSENTIAL (PRIMARY) HYPERTENSION 11/15/2017 VICTOR M FERRARI FAC, ALI FACP CCDS Ot I25.10 ATHSCL HEART DISEASE OF [place] CORONARY 11/15/2017 VICTOR M FERRARI [facility], ALI FACP CCDS Ot I65.23 OCCLUSION AND STENOSIS OF [place]ILATERAL [place] 11/15/2017 VICTOR M FERRARI [facility], ALI FACP CCDS Ot Z72.0 TOBACCO USE 11/15/2017 GELLENDER DO, LARRY Wiley Ot M25.531 PAIN IN RIGHT WRIST 11/15/2017 GELLENDER DO, LARRY Wiley Ot E04.1 NONTOXIC SINGLE THYROID NODULE 11/15/2017 GELLENDER DO, LARRY Wiley Ot R22.1 LOCALIZED SWELLING, MASS AND LUMP, NECK 11/15/2017 GELLENDER DO, LARRY Wiley Ot M89.9 DISORDER OF BONE, UNSPECIFIED 11/15/2017 GELLENDER DO, LARRY Wiley Ot R22.1 LOCALIZED SWELLING, MASS AND LUMP, NECK 11/15/2017 GELLENDER DO, LARRY Wiley Ot R59.0 LOCALIZED ENLARGED LYMPH NODES 11/15/2017 GELLENDER DOLARRY Ot M89.9 DISORDER OF BONE, UNSPECIFIED 11/15/2017 GELLENDER DO, LARRY Wiley Ot R59.0 LOCALIZED ENLARGED LYMPH NODES 11/15/2017 GELLENDER DO, LARRY Wiley Ot R22.1 LOCALIZED SWELLING, MASS AND LUMP, NECK 11/15/2017 GELLENDER DO, LARRY Wiley Ot C83.30 DIFFUSE LARGE B-CELL LYMPHOMA, UNSPECIFI 11/15/2017 GELLENDER DOLARRY Ot J35.9 CHRONIC DISEASE OF TONSILS AND ADENOIDS, 11/15/2017 GELLENDER DO, LARRY Wiley Ot R59.0 LOCALIZED ENLARGED LYMPH NODES 11/15/2017 ROXI DUNLAP Ot C85.90 NON-H[place]GKIN LYMPHOMA, UNSPECIFIED, UNSPE 11/15/2017 ROXI DUNLAP Ot Z01.810 ENCOUNTER FOR PREPROCEDURAL CARDIOVASCUL 11/15/2017 APRIL BARRON PROFESSOR OF BIOCHEMISTRY Ot E78.5 HYPERLIPIDEMIA, UNSPECIFIED 11/15/2017 APRIL BARRON L PROFESSOR OF BIOCHEMISTRY Ot I 10 ESSENTIAL (PRIMARY) HYPERTENSION 11/15/2017 APRIL BARRON L PROFESSOR OF BIOCHEMISTRY Ot I25.10 ATHSCL HEART DISEASE OF [place] CORONARY 11/15/2017 APRIL BARRON PROFESSOR OF BIOCHEMISTRY Ot I77.9 DISORDER OF ARTERIES AND ARTERIOLES, UNS 11/15/2017 JUSTIN ARCEO PROFESSOR OF BIOCHEMISTRY Ot C83.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, LYMPH NOD 11/15/2017 ROXI DUNLAP Ot C83.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, LYMPH NOD 11/15/2017 ROXI DUNLAP Ot Z01.89 ENCOUNTER FOR OTHER SPECIFIED SPECIAL EX 11/15/2017 APRIL BARRON L PROFESSOR OF BIOCHEMISTRY Ot E78.4 OTHER HYPERLIPIDEMIA 11/15/2017 KASANDRAAPRIL US L PROFESSOR OF BIOCHEMISTRY Ot I 10 ESSENTIAL (PRIMARY) HYPERTENSION 11/15/2017 APRIL BARRON L PROFESSOR OF BIOCHEMISTRY Ot I25.10 ATHSCL HEART DISEASE OF [place] CORONARY 11/15/2017 APRIL BARRON L PROFESSOR OF BIOCHEMISTRY Ot I65.23 OCCLUSION AND STENOSIS OF [place]ILATERAL [place] 11/15/2017 VICTOR M FERRARI FAC, ALI FACP CCDS Ot E78.4 OTHER HYPERLIPIDEMIA 11/15/2017 VICTOR M FERRARI FAC, ALI FACP CCDS Ot I10 ESSENTIAL (PRIMARY) HYPERTENSION 11/15/2017 VICTOR M FERRARI FACC, ALI FACP CCDS Ot I25.10 ATHSCL HEART DISEASE OF [place] CORONARY 11/15/2017 VICTOR M FERRARI FAC, ALI FACP CCDS Ot I65.23 OCCLUSION AND STENOSIS OF [place]IL[place]AL [place] 11/15/2017 VICTOR M FERRARI FAC, ALI FACP CCDS Ot K76.9 LIVER DISEASE, UNSPECIFIED 11/15/2017 NATASHA LEAHY MD Ot C83.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, LYMPH NOD 11/15/2017 NATASHA LEAHY MD Ot K44.9 DIAPHRAGMATIC HERNIA WITHOUT OBSTRUCTION 11/15/2017 NATASHA LEAHY MD Ot R59.0 LOCALIZED ENLARGED LYMPH NODES 11/15/2017 ROXI DUNLAP Ot C83.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, LYMPH NOD 11/15/2017 ROXI DUNLAP N Ot E11.9 TYPE 2 DIABETES MELLITUS WITHOUT COMPLIC 11/15/2017 ROXI DUNLAP N Ot E78.5 HYPERLIPIDEMIA, UNSPECIFIED 11/15/2017 GERMÁN BOBAN N Ot I10 ESSENTIAL (PRIMARY) HYPERTENSION 11/15/2017 VLADIMIR DUNLAPAN N Ot I25.10 ATHSCL HEART DISEASE OF [place] CORONARY 11/15/2017 ROXI DUNLAP N Ot Z79.84 RELIABILITY TECHNICIAN (CURRENT) USE OF ORAL HYPOGLYC 11/15/2017 ROXI DUNLAP N Ot Z79.899 OTHER RELIABILITY TECHNICIAN (CURRENT) DRUG THERAPY 11/15/2017 ROXI DUNLAP N Ot Z87.891 PERSONAL HISTORY OF NICOTINE DEPENDENCE 11/15/2017 GERMÁN VLADIMIRSEBASTIEN N Ot Z95.5 PRESENCE OF CORONARY ANGIOPLASTY IMPLANT 11/19/2017 ROXI DUNLAP N Ot C83.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, LYMPH NOD 11/19/2017 ROXI DUNLAP N Ot E11.9 TYPE 2 DIABETES MELLITUS WITHOUT COMPLIC 11/19/2017 ROXI DUNLAP N Ot E78.5 HYPERLIPIDEMIA, UNSPECIFIED 11/19/2017 ROXI DUNLAP N Ot I10 ESSENTIAL (PRIMARY) HYPERTENSION 11/19/2017 ROXI DUNLAP N Ot I25.10 ATHSCL HEART DISEASE OF [place] CORONARY 11/19/2017 ROXI DUNLAP N Ot Z79.84 DETENTION (CURRENT) USE OF ORAL HYPOGLYC 11/19/2017 ROXI DUNLAP N Ot Z79.899 OTHER DETENTION (CURRENT) DRUG THERAPY 11/19/2017 ROXI DUNLAP N Ot Z87.891 PERSONAL HISTORY OF NICOTINE DEPENDENCE 11/19/2017 ROXI DUNLAP N Ot Z95.5 PRESENCE OF CORONARY ANGIOPLASTY IMPLANT 11/19/2017 ROXI DUNLAP N Ot M51.34 OTHER INTERVERTEBRAL DISC DEGENERATION, 11/19/2017 ROXI DUNLAP N Ot Z85.72 PERSONAL HISTORY OF NON-[place] LYMPHOMA 11/19/2017 ROXI DUNLAP N Ot Z98.890 OTHER SPECIFIED POSTPROCEDURAL STATES 11/19/2017 BAIMAHOLLISAPRIL L PROFESSOR OF BIOCHEMISTRY Ot E78.4 OTHER HYPERLIPIDEMIA 11/19/2017 BAIMA APRIL L PROFESSOR OF BIOCHEMISTRY Ot I25.10 ATHSCL HEART DISEASE OF [place] CORONARY 11/20/2017 ROXI DUNLAP N Ot C83.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, LYMPH NOD 11/20/2017 GERMÁNROXI LEACH N Ot E11.9 TYPE 2 DIABETES MELLITUS WITHOUT COMPLIC 11/20/2017 ROXI DUNLAP N Ot E78.5 HYPERLIPIDEMIA, UNSPECIFIED 11/20/2017 GERMÁN VLADIMIRSEBASTIEN N Ot I10 ESSENTIAL (PRIMARY) HYPERTENSION 11/20/2017 GERMÁN ROXI N Ot I25.10 ATHSCL HEART DISEASE OF [place] CORONARY 11/20/2017 ROXI DUNLAP N Ot Z79.84 RELIABILITY TECHNICIAN (CURRENT) USE OF ORAL HYPOGLYC 11/20/2017 ROXI DUNLAP N Ot Z79.899 OTHER DETENTION (CURRENT) DRUG THERAPY 11/20/2017 GERMÁN ROXI N Ot Z87.891 PERSONAL HISTORY OF NICOTINE DEPENDENCE 11/20/2017 ROXI DUNLAP N Ot Z95.5 PRESENCE OF CORONARY ANGIOPLASTY IMPLANT 12/08/2017 GERMÁN ROXI N Ot M51.34 OTHER INTERVERTEBRAL DISC DEGENERATION, 12/08/2017 ROXI DUNLAP N Ot Z85.72 PERSONAL HISTORY OF NON-[place]GKIN LYMPHOMA 12/08/2017 ROXI DUNLAP N Ot Z98.890 OTHER SPECIFIED POSTPROCEDURAL STATES 12/10/2017 BAIAPRIL US PROFESSOR OF BIOCHEMISTRY Ot E78.4 OTHER HYPERLIPIDEMIA 12/10/2017 BAIMAAPRIL PROFESSOR OF BIOCHEMISTRY Ot I25.10 ATHSCL HEART DISEASE OF [place] CORONARY 12/10/2017 ROXI DUNLAP N Ot M51.34 OTHER INTERVERTEBRAL DISC DEGENERATION, 12/10/2017 ROXI DUNLAP N Ot Z85.72 PERSONAL HISTORY OF NON-HODGKIN LYMPHOMA 12/10/2017 ROXI DUNLAP N Ot Z98.890 OTHER SPECIFIED POSTPROCEDURAL STATES 12/29/2017 ROXI DUNLAP N Ot C83.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, LYMPH NOD 12/29/2017 ROXI DUNLAP N Ot E11.9 TYPE 2 DIABETES MELLITUS WITHOUT COMPLIC 12/29/2017 ROXI DUNLAP N Ot E78.5 HYPERLIPIDEMIA, UNSPECIFIED 12/29/2017 GERMÁN VLADIMIRSEBASTIEN N Ot I10 ESSENTIAL (PRIMARY) HYPERTENSION 12/29/2017 GERMÁN ROXI N Ot I25.10 ATHSCL HEART DISEASE OF [place] CORONARY 12/29/2017 GERMÁN, BOBAN N Ot Z79.84 RELIABILITY TECHNICIAN (CURRENT) USE OF ORAL HYPOGLYC 12/29/2017 GERMÁN BOBAN N Ot Z79.899 OTHER DETENTION (CURRENT) DRUG THERAPY 12/29/2017 GERMÁNVLADIMIRAN N Ot Z87.891 PERSONAL HISTORY OF NICOTINE DEPENDENCE 12/29/2017 GERMÁNROXI N Ot Z95.5 PRESENCE OF CORONARY ANGIOPLASTY IMPLANT 01/16/2018 GERMÁNVLADIMIRAN N Ot C83.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, LYMPH NOD 01/16/2018 GERMÁN BOBAN N Ot E11.9 TYPE 2 DIABETES MELLITUS WITHOUT COMPLIC 01/16/2018 GERMÁN BOBAN N Ot E78.5 HYPERLIPIDEMIA, UNSPECIFIED 01/16/2018 GERMÁN, BOBAN N Ot I10 ESSENTIAL (PRIMARY) HYPERTENSION 01/16/2018 GERMÁN BOBAN N Ot I25.10 ATHSCL HEART DISEASE OF [place] CORONARY 01/16/2018 GERMÁN BOBAN N Ot Z79.84 RELIABILITY TECHNICIAN (CURRENT) USE OF ORAL HYPOGLYC 01/16/2018 GERMÁNROXI N Ot Z79.899 OTHER DETENTION (CURRENT) DRUG THERAPY 01/16/2018 GERMÁNVLADIMIRAN N Ot Z87.891 PERSONAL HISTORY OF NICOTINE DEPENDENCE 01/16/2018 GERMÁNROXI N Ot Z95.5 PRESENCE OF CORONARY ANGIOPLASTY IMPLANT 01/20/2018 GERMÁNROXI LEACH N Ot C83.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, LYMPH NOD 01/20/2018 GERMÁNVLADIMIRAN N Ot E11.9 TYPE 2 DIABETES MELLITUS WITHOUT COMPLIC 01/20/2018 GERMÁNVLADIMIRAN N Ot E78.5 HYPERLIPIDEMIA, UNSPECIFIED 01/20/2018 GERMÁN BOBAN N Ot I10 ESSENTIAL (PRIMARY) HYPERTENSION 01/20/2018 GERMÁN BOBAN N Ot I25.10 ATHSCL HEART DISEASE OF [place] CORONARY 01/20/2018 GERMÁNVLADIMIRAN N Ot Z79.84 DETENTION (CURRENT) USE OF ORAL HYPOGLYC 01/20/2018 GERMÁN BOBAN N Ot Z79.899 OTHER DETENTION (CURRENT) DRUG THERAPY 01/20/2018 GERMÁN BOBAN N Ot Z87.891 PERSONAL HISTORY OF NICOTINE DEPENDENCE 01/20/2018 GERMÁN BOBAN N Ot Z95.5 PRESENCE OF CORONARY ANGIOPLASTY IMPLANT 02/05/2018 Ot 241.0 NONT OX UNINODULAR GOITER 02/05/2018 Ot 272.4 HYPE RLIPIDEMIA NEC/NOS 02/05/2018 Ot 401.9 HYPE RTENSION NOS 02/05/2018 Ot 414.00 COR ON ATHEROSCLER NOS TYPE VESSEL, NATIV 02/05/2018 Ot V58.69 OTH MED,LT,CURRENT USE 02/05/2018 Ot 414.00 COR ON ATHEROSCLER NOS TYPE VESSEL, NATIV 02/05/2018 Ot V45.82 PER CUTANEOUS TRANSLUM CORON ANGIOPLASTY 02/05/2018 VICTOR M FERRARI FACC, ALI FACP CCDS Ot 272.4 HYPERLIPIDEMIA NEC/NOS 02/05/2018 VICTOR M FERRARI FACC, ALI FACP CCDS Ot 414.01 CORONARY ATHEROSCLEROSIS OF [place] CORON 02/05/2018 VICTOR M FERRARI FACC, ALI FACP CCDS Ot V58.69 OTH MED,LT,CURRENT USE 02/05/2018 BAIMA, APRIL L PROFESSOR OF BIOCHEMISTRY Ot 272.4 HYPERLIPIDEMIA NEC/NOS 02/05/2018 BAIMA, APRIL L PROFESSOR OF BIOCHEMISTRY Ot 401.9 HYPERTENSION NOS 02/05/2018 BAIMA, APRIL L PROFESSOR OF BIOCHEMISTRY Ot 414.01 CORONARY ATHEROSCLEROSIS OF [place] CORON 02/05/2018 BAIMA, APRIL L PROFESSOR OF BIOCHEMISTRY Ot 272.4 HYPERLIPIDEMIA NEC/NOS 02/05/2018 BAIMA, APRIL L PROFESSOR OF BIOCHEMISTRY Ot V58.69 OTH MED,LT,CURRENT USE 02/05/2018 BAIMA, APRIL L PROFESSOR OF BIOCHEMISTRY Ot 272.4 HYPERLIPIDEMIA NEC/NOS 02/05/2018 BAIMA, APRIL L PROFESSOR OF BIOCHEMISTRY Ot 414.00 CORON ATHEROSCLER NOS TYPE VESSEL, NATIV 02/05/2018 BAIMA, APRIL L PROFESSOR OF BIOCHEMISTRY Ot 272.4 HYPERLIPIDEMIA NEC/NOS 02/05/2018 BAIMA, APRIL L PROFESSOR OF BIOCHEMISTRY Ot 414.00 CORON ATHEROSCLER NOS TYPE VESSEL, NATIV 02/05/2018 BAIMA, APRIL L PROFESSOR OF BIOCHEMISTRY Ot 447.9 ARTERIAL DISEASE NOS 02/05/2018 LARRY KUO DO Ot 241.0 NONTOX UNINODULAR GOITER 02/05/2018 BAIMA, APRIL L PROFESSOR OF BIOCHEMISTRY Ot 272.4 HYPERLIPIDEMIA NEC/NOS 02/05/2018 BAIMA, APRIL L PROFESSOR OF BIOCHEMISTRY Ot 414.00 CORON ATHEROSCLER NOS TYPE VESSEL, NATIV 02/05/2018 BAIMA, APRIL L PROFESSOR OF BIOCHEMISTRY Ot 272.4 HYPERLIPIDEMIA NEC/NOS 02/05/2018 LESLIE FERRARI, VENKAT A Ot C61 MALIGNANT NEOPLASM OF PROSTATE 02/05/2018 BAIMAAPRIL PROFESSOR OF BIOCHEMISTRY Ot E78.5 HYPERLIPIDEMIA, UNSPECIFIED 02/05/2018 BAIMA, APRIL L PROFESSOR OF BIOCHEMISTRY Ot I25.10 ATHSCL HEART DISEASE OF [place] CORONARY 02/05/2018 BAIAPRIL US L PROFESSOR OF BIOCHEMISTRY Ot E78.5 HYPERLIPIDEMIA, UNSPECIFIED 02/05/2018 BAIMA, APRIL L PROFESSOR OF BIOCHEMISTRY Ot I25.10 ATHSCL HEART DISEASE OF [place] CORONARY 02/05/2018 VICTOR M MD FACC, ALI FACP CCDS Ot E78.4 OTHER HYPERLIPIDEMIA 02/05/2018 VICTOR M FERRARI FACC, ALI FACP CCDS Ot I10 ESSENTIAL (PRIMARY) HYPERTENSION 02/05/2018 VICTOR M FERRARI FACC, ALI FACP CCDS Ot I25.10 ATHSCL HEART DISEASE OF [place] CORONARY 02/05/2018 VICTOR M FERRARI FACC, ALI FACP CCDS Ot I65.23 OCCLUSION AND STENOSIS OF [place] 02/05/2018 VICTOR M FERRARI FAC, ALI FACP CCDS Ot Z72.0 TOBACCO USE 02/05/2018 ARLENLENDER DO, LARYR Wiley Ot M25.531 PAIN IN RIGHT WRIST 02/05/2018 SHARONDER LARRY CARTER Ot E04.1 NONTOXIC SINGLE THYROID NODULE 02/05/2018 SHARONDER LARRY CARTER Ot R22.1 LOCALIZED SWELLING, MASS AND LUMP, NECK 02/05/2018 GELLENDER DOLARRY Ot M89.9 DISORDER OF BONE, UNSPECIFIED 02/05/2018 GELLENDER LARRY CARTER Ot R22.1 LOCALIZED SWELLING, MASS AND LUMP, NECK 02/05/2018 GELLENDER DOLARRY Ot R59.0 LOCALIZED ENLARGED LYMPH NODES 02/05/2018 GELLENDER DOLARRY Ot M89.9 DISORDER OF BONE, UNSPECIFIED 02/05/2018 GELLENDER DOLARRY Ot R59.0 LOCALIZED ENLARGED LYMPH NODES 02/05/2018 ARLENLENDER DOLARRY Ot R22.1 LOCALIZED SWELLING, MASS AND LUMP, NECK 02/05/2018 GELLENDER DOLARRY Ot C83.30 DIFFUSE LARGE B-CELL LYMPHOMA, UNSPECIFI 02/05/2018 ARLENLENLARRY HENDERSON DO Ot J35.9 CHRONIC DISEASE OF TONSILS AND ADENOIDS, 02/05/2018 LARRY KUO DO Ot R59.0 LOCALIZED ENLARGED LYMPH NODES 02/05/2018 GERMÁNROXI LEACH Pierre Ot C85.90 NON-[place]IN LYMPHOMA, UNSPECIFIED, UNSPE 02/05/2018 ROXI DUNLAP Pierre Ot Z01.810 ENCOUNTER FOR PREPROCEDURAL CARDIOVASCUL 02/05/2018 BEATRICE APRIL L PROFESSOR OF BIOCHEMISTRY Ot E78.5 HYPERLIPIDEMIA, UNSPECIFIED 02/05/2018 BAIMA APRIL L PROFESSOR OF BIOCHEMISTRY Ot I 10 ESSENTIAL (PRIMARY) HYPERTENSION 02/05/2018 BAIMA APRIL L PROFESSOR OF BIOCHEMISTRY Ot I25.10 ATHSCL HEART DISEASE OF [place] CORONARY 02/05/2018 KASANDRAMAGENAPRIL L PROFESSOR OF BIOCHEMISTRY Ot I77.9 DISORDER OF ARTERIES AND ARTERIOLES, UNS 02/05/2018 JUSTIN ARCEO PROFESSOR OF BIOCHEMISTRY Ot C83.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, LYMPH NOD 02/05/2018 ROXI DUNLAP Ot C83.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, LYMPH NOD 02/05/2018 GERMÁNVLADIMIRSEBASTIEN Pierre Ot Z01.89 ENCOUNTER FOR OTHER SPECIFIED SPECIAL EX 02/05/2018 KASANDRAMAGEN APRIL L PROFESSOR OF BIOCHEMISTRY Ot E78.4 OTHER HYPERLIPIDEMIA 02/05/2018 BAIMA APRIL L PROFESSOR OF BIOCHEMISTRY Ot I 10 ESSENTIAL (PRIMARY) HYPERTENSION 02/05/2018 BAIMA APRIL L PROFESSOR OF BIOCHEMISTRY Ot I25.10 ATHSCL HEART DISEASE OF [place] CORONARY 02/05/2018 KASANDRAMAAPRIL L PROFESSOR OF BIOCHEMISTRY Ot I65.23 OCCLUSION AND STENOSIS OF [place] 02/05/2018 VICTOR M FERRARI FAC, ALI FACP CCDS Ot E78.4 OTHER HYPERLIPIDEMIA 02/05/2018 VICTOR M FERRARI FAC, ALI FACP CCDS Ot I10 ESSENTIAL (PRIMARY) HYPERTENSION 02/05/2018 VICTOR M FERRARI FACC, ALI FACP CCDS Ot I25.10 ATHSCL HEART DISEASE OF [place] CORONARY 02/05/2018 VICTOR M FERRARI FACC, ALI FACP CCDS Ot I65.23 OCCLUSION AND STENOSIS OF [place] 02/05/2018 VICTOR M FERRARI FACC, ALI FACP CCDS Ot K76.9 LIVER DISEASE, UNSPECIFIED 02/05/2018 NATASHA LEAHY MD Ot C83.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, LYMPH NOD 02/05/2018 NATASHA LEAHY MD Ot K44.9 DIAPHRAGMATIC HERNIA WITHOUT OBSTRUCTION 02/05/2018 NATASHA LEAHY MD Ot R59.0 LOCALIZED ENLARGED LYMPH NODES 02/05/2018 ROXI DUNLAP N Ot M51.34 OTHER INTERVERTEBRAL DISC DEGENERATION, 02/05/2018 VLADIMIR DUNLAPSEBASTIEN N Ot Z85.72 PERSONAL HISTORY OF NON-[place] LYMPHOMA 02/05/2018 ROXI DUNLAP N Ot Z98.890 OTHER SPECIFIED POSTPROCEDURAL STATES 02/05/2018 BAIMAGEN APRIL L PROFESSOR OF BIOCHEMISTRY Ot E78.4 OTHER HYPERLIPIDEMIA 02/05/2018 BAIMAGEN APRIL L PROFESSOR OF BIOCHEMISTRY Ot I25.10 ATHSCL HEART DISEASE OF [place] CORONARY 02/05/2018 ROXI DUNLAP N Ot C83.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, LYMPH NOD 02/05/2018 GERMÁN BOBAN N Ot E11.9 TYPE 2 DIABETES MELLITUS WITHOUT COMPLIC 02/05/2018 VLADIMIR DUNLAPAN N Ot E78.5 HYPERLIPIDEMIA, UNSPECIFIED 02/05/2018 GERMÁN, BOBAN N Ot I10 ESSENTIAL (PRIMARY) HYPERTENSION 02/05/2018 GERMÁN VLADIMIRAN N Ot I25.10 ATHSCL HEART DISEASE OF [place] CORONARY 02/05/2018 VLADIMIR DUNLAPAN N Ot Z79.84 DETENTION (CURRENT) USE OF ORAL HYPOGLYC 02/05/2018 GERMÁN VLADIMIRAN N Ot Z79.899 OTHER RELIABILITY TECHNICIAN (CURRENT) DRUG THERAPY 02/05/2018 VLADIMIR DUNLAPAN N Ot Z87.891 PERSONAL HISTORY OF NICOTINE DEPENDENCE 02/05/2018 GERMÁN ROXI N Ot Z95.5 PRESENCE OF CORONARY ANGIOPLASTY IMPLANT 03/19/2018 GERMÁN ROXI N Ot C83.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, LYMPH NOD 03/19/2018 GERMÁN BOBAN N Ot E11.9 TYPE 2 DIABETES MELLITUS WITHOUT COMPLIC 03/19/2018 GERMÁN, BOBAN N Ot E78.5 HYPERLIPIDEMIA, UNSPECIFIED 03/19/2018 GERMÁN BOBAN N Ot I10 ESSENTIAL (PRIMARY) HYPERTENSION 03/19/2018 GERMÁN BOBAN N Ot I25.10 ATHSCL HEART DISEASE OF [place] CORONARY 03/19/2018 GERMÁN, VLADIMIRAN N Ot Z79.84 DETENTION (CURRENT) USE OF ORAL HYPOGLYC 03/19/2018 GERMÁN BOBAN N Ot Z79.899 OTHER RELIABILITY TECHNICIAN (CURRENT) DRUG THERAPY 03/19/2018 ROXI DUNLAP N Ot Z87.891 PERSONAL HISTORY OF NICOTINE DEPENDENCE 03/19/2018 GERMÁNROXI LEACH N Ot Z95.5 PRESENCE OF CORONARY ANGIOPLASTY IMPLANT 03/20/2018 GERMÁNROXI LEACH N Ot C83.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, LYMPH NOD 03/20/2018 GERMÁN, BOBAN N Ot E11.9 TYPE 2 DIABETES MELLITUS WITHOUT COMPLIC 03/20/2018 GERMÁNVLADIMIRAN N Ot E78.5 HYPERLIPIDEMIA, UNSPECIFIED 03/20/2018 GERMÁN, BOBAN N Ot I10 ESSENTIAL (PRIMARY) HYPERTENSION 03/20/2018 GERMÁN, BOBAN N Ot I25.10 ATHSCL HEART DISEASE OF [place] CORONARY 03/20/2018 GERMÁNROXI LEACH N Ot Z79.84 RELIABILITY TECHNICIAN (CURRENT) USE OF ORAL HYPOGLYC 03/20/2018 VLADIMIR DUNLAPAN N Ot Z79.899 OTHER RELIABILITY TECHNICIAN (CURRENT) DRUG THERAPY 03/20/2018 GERMÁNVLADIMIR LEACHAN N Ot Z87.891 PERSONAL HISTORY OF NICOTINE DEPENDENCE 03/20/2018 GERMÁNVLADIMIRAN N Ot Z95.5 PRESENCE OF CORONARY ANGIOPLASTY IMPLANT 03/27/2018 GERMÁNVLADIMIR LEACHAN N Ot C83.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, LYMPH NOD 03/27/2018 GERMÁN, BOBAN N Ot E11.9 TYPE 2 DIABETES MELLITUS WITHOUT COMPLIC 03/27/2018 GERMÁN BOBAN N Ot E78.5 HYPERLIPIDEMIA, UNSPECIFIED 03/27/2018 GERMÁN, BOBAN N Ot I10 ESSENTIAL (PRIMARY) HYPERTENSION 03/27/2018 GERMÁN BOBAN N Ot I25.10 ATHSCL HEART DISEASE OF [place] CORONARY 03/27/2018 ROXI DUNLAP N Ot Z45.2 ENCOUNTER FOR ADJUSTMENT AND MANAGEMENT 03/27/2018 GERMÁN, BOBAN N Ot Z79.84 DETENTION (CURRENT) USE OF ORAL HYPOGLYC 03/27/2018 GERMÁN BOBAN N Ot Z79.899 OTHER DETENTION (CURRENT) DRUG THERAPY 03/27/2018 GERMÁN, BOBAN N Ot Z87.891 PERSONAL HISTORY OF NICOTINE DEPENDENCE 03/27/2018 GERMÁN, BOBAN N Ot Z95.5 PRESENCE OF CORONARY ANGIOPLASTY IMPLANT 04/22/2018 GERMÁN, BOBAN N Ot C83.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, LYMPH NOD 04/22/2018 ROXI DUNLAP N Ot E11.9 TYPE 2 DIABETES MELLITUS WITHOUT COMPLIC 04/22/2018 ROXI DUNLAP N Ot E78.5 HYPERLIPIDEMIA, UNSPECIFIED 04/22/2018 GERMÁN BOBAN N Ot I10 ESSENTIAL (PRIMARY) HYPERTENSION 04/22/2018 ROXI DUNLAP N Ot I25.10 ATHSCL HEART DISEASE OF [place] CORONARY 04/22/2018 ROXI DUNLAP N Ot Z45.2 ENCOUNTER FOR ADJUSTMENT AND MANAGEMENT 04/22/2018 ROXI DUNLAP N Ot Z79.84 DETENTION (CURRENT) USE OF ORAL HYPOGLYC 04/22/2018 ROXI DUNLAP N Ot Z79.899 OTHER RELIABILITY TECHNICIAN (CURRENT) DRUG THERAPY 04/22/2018 ROXI DUNLAP N Ot Z87.891 PERSONAL HISTORY OF NICOTINE DEPENDENCE 04/22/2018 ROXI DUNLAP N Ot Z95.5 PRESENCE OF CORONARY ANGIOPLASTY IMPLANT 04/29/2018 ROXI DUNLAP N Ot C83.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, LYMPH NOD 04/29/2018 ROXI DUNLAP N Ot E11.9 TYPE 2 DIABETES MELLITUS WITHOUT COMPLIC 04/29/2018 ROXI DUNLAP N Ot E78.5 HYPERLIPIDEMIA, UNSPECIFIED 04/29/2018 ROXI DUNLAP N Ot I10 ESSENTIAL (PRIMARY) HYPERTENSION 04/29/2018 ROXI DUNLAP N Ot I25.10 ATHSCL HEART DISEASE OF [place] CORONARY 04/29/2018 ROXI DUNLAP N Ot Z45.2 ENCOUNTER FOR ADJUSTMENT AND MANAGEMENT 04/29/2018 ROXI DUNLAP N Ot Z79.84 RELIABILITY TECHNICIAN (CURRENT) USE OF ORAL HYPOGLYC 04/29/2018 ROXI DUNLAP N Ot Z79.899 OTHER DETENTION (CURRENT) DRUG THERAPY 04/29/2018 VLADIMIR DUNLAPAN N Ot Z87.891 PERSONAL HISTORY OF NICOTINE DEPENDENCE 04/29/2018 GERMÁN, BOBSEBASTIEN N Ot Z95.5 PRESENCE OF CORONARY ANGIOPLASTY IMPLANT 05/08/2018 BAIMA, APRIL L PROFESSOR OF BIOCHEMISTRY Ot E78.5 HYPERLIPIDEMIA, UNSPECIFIED 05/08/2018 BAIMA, APRIL L PROFESSOR OF BIOCHEMISTRY Ot I25.10 ATHSCL HEART DISEASE OF [place] CORONARY 05/26/2018 BAIMA, APRIL L PROFESSOR OF BIOCHEMISTRY Ot E78.5 HYPERLIPIDEMIA, UNSPECIFIED 05/26/2018 APRIL BARRON Ot I25.10 ATHSCL HEART DISEASE OF [place] CORONARY 06/03/2018 ROXI DUNLAP Ot C83.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, LYMPH NOD 06/03/2018 ROXI DUNLAP Ot E11.9 TYPE 2 DIABETES MELLITUS WITHOUT COMPLIC 06/03/2018 RXOI DUNLAP Ot E78.5 HYPERLIPIDEMIA, UNSPECIFIED 06/03/2018 ROXI DUNLAP Ot I10 ESSENTIAL (PRIMARY) HYPERTENSION 06/03/2018 ROXI DUNLAP Ot I25.10 ATHSCL HEART DISEASE OF [place] CORONARY 06/03/2018 ROXI DUNLAP Ot Z79.84 DETENTION (CURRENT) USE OF ORAL HYPOGLYC 06/03/2018 ROXI DUNLAP N Ot Z79.899 OTHER RELIABILITY TECHNICIAN (CURRENT) DRUG THERAPY 06/03/2018 ROXI DUNLAP Ot Z87.891 PERSONAL HISTORY OF NICOTINE DEPENDENCE 06/03/2018 ROXI DUNLAP Ot Z95.5 PRESENCE OF CORONARY ANGIOPLASTY IMPLANT 06/25/2018 NATASHA LEAHY MD, Ot C83.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, LYMPH NOD 06/25/2018 NATASHA LEAHY MD Ot E11.9 TYPE 2 DIABETES MELLITUS WITHOUT COMPLIC 06/25/2018 NATASHA LEAHY MD Ot I10 ESSENTIAL (PRIMARY) HYPERTENSION 06/25/2018 NATASHA LEAHY MD, Ot M51.34 OTHER INTERVERTEBRAL DISC DEGENERATION, 06/25/2018 NATASHA LEAHY MD Ot Z92.21 PERSONAL HISTORY OF ANTINEOPLASTIC CHEMO 06/25/2018 NATASHA LEAHY MD Ot Z98.1 ARTHRODESIS STATUS 06/30/2018 NATASHA LEAHY MD, Ot C83.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, LYMPH NOD 06/30/2018 NATASHA LEAHY MD Ot E11.9 TYPE 2 DIABETES MELLITUS WITHOUT COMPLIC 06/30/2018 NATASHA LEAHY MD, Ot I10 ESSENTIAL (PRIMARY) HYPERTENSION 06/30/2018 NATASHA LEAHY MD, Ot M51.34 OTHER INTERVERTEBRAL DISC DEGENERATION, 06/30/2018 NATASHA LEAHY MD Ot Z92.21 PERSONAL HISTORY OF ANTINEOPLASTIC CHEMO 06/30/2018 NATASHA LEAHY MD Ot Z98.1 ARTHRODESIS STATUS 07/23/2018 NATASHA LEAHY MD, Ot C83.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, LYMPH NOD 07/23/2018 NATASHA LEAHY MD, Ot E11.9 TYPE 2 DIABETES MELLITUS WITHOUT COMPLIC 07/23/2018 NATASHA LEAHY MD, Ot I10 ESSENTIAL (PRIMARY) HYPERTENSION 07/23/2018 NATASHA LEAHY MD, Ot M51.34 OTHER INTERVERTEBRAL DISC DEGENERATION, 07/23/2018 NATASHA LEAHY MD, Ot Z92.21 PERSONAL HISTORY OF ANTINEOPLASTIC CHEMO 07/23/2018 NATASHA LEAHY MD, Ot Z98.1 ARTHRODESIS STATUS 07/27/2018 JUSTIN ARCEOP Ot C83.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, LYMPH NOD 07/27/2018 JUSTIN ARCEO PROFESSOR OF BIOCHEMISTRY Ot K57.30 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 OR AB 07/27/2018 JUSTIN ARCEO PROFESSOR OF BIOCHEMISTRY Ot R59.0 LOCALIZED ENLARGED LYMPH NODES 07/29/2018 ROXI DUNLAP Ot C83.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, LYMPH NOD 07/29/2018 ROXI DUNLAP Ot E11.9 TYPE 2 DIABETES MELLITUS WITHOUT COMPLIC 07/29/2018 ROXI DUNLAP Ot E78.5 HYPERLIPIDEMIA, UNSPECIFIED 07/29/2018 ROXI DUNLAP Ot I10 ESSENTIAL (PRIMARY) HYPERTENSION 07/29/2018 ROXI DUNLAP Ot I25.10 ATHSCL HEART DISEASE OF [place] CORONARY 07/29/2018 ROXI DUNLAP Ot K57.30 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 OR AB 07/29/2018 ROXI DUNLAP Ot Z79.84 DETENTION (CURRENT) USE OF ORAL HYPOGLYC 07/29/2018 ROXI DUNLAP Ot Z79.899 OTHER RELIABILITY TECHNICIAN (CURRENT) DRUG THERAPY 07/29/2018 ROXI DUNLAP Ot Z87.891 PERSONAL HISTORY OF NICOTINE DEPENDENCE 07/29/2018 ROXI DUNLAP Ot Z95.5 PRESENCE OF CORONARY ANGIOPLASTY IMPLANT 07/29/2018 NATASHA LEAHY MD, Ot C83.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, LYMPH NOD 07/29/2018 NATASHA LEAHY MD, Ot E11.9 TYPE 2 DIABETES MELLITUS WITHOUT COMPLIC 07/29/2018 NATASHA LEAHY MD Ot I10 ESSENTIAL (PRIMARY) HYPERTENSION 07/29/2018 NATASHA LEAHY MD, Ot M51.34 OTHER INTERVERTEBRAL DISC DEGENERATION, 07/29/2018 NATASHA LEAHY MD Ot Z92.21 PERSONAL HISTORY OF ANTINEOPLASTIC CHEMO 07/29/2018 NATASHA LEAHY MD Ot Z98.1 ARTHRODESIS STATUS 07/30/2018 JUSTIN ARCEOP Ot C83.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, LYMPH NOD 07/30/2018 JUSTIN ARCEO PROFESSOR OF BIOCHEMISTRY Ot K57.30 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 OR AB 07/30/2018 JUSTIN ARCEO PROFESSOR OF BIOCHEMISTRY Ot R59.0 LOCALIZED ENLARGED LYMPH NODES 07/31/2018 ROXI DUNLAP Ot C83.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, LYMPH NOD 07/31/2018 ROXI DUNLAP N Ot E11.9 TYPE 2 DIABETES MELLITUS WITHOUT COMPLIC 07/31/2018 ROXI DUNLAP N Ot E78.5 HYPERLIPIDEMIA, UNSPECIFIED 07/31/2018 GERMÁN BOBAN N Ot I10 ESSENTIAL (PRIMARY) HYPERTENSION 07/31/2018 ROXI DUNLAP N Ot I25.10 ATHSCL HEART DISEASE OF [place] CORONARY 07/31/2018 ROXI DUNLAP N Ot Z79.84 RELIABILITY TECHNICIAN (CURRENT) USE OF ORAL HYPOGLYC 07/31/2018 GERMÁNVLADIMIRAN N Ot Z79.899 OTHER RELIABILITY TECHNICIAN (CURRENT) DRUG THERAPY 07/31/2018 ROXI DUNLAP N Ot Z87.891 PERSONAL HISTORY OF NICOTINE DEPENDENCE 07/31/2018 ROXI DUNLAP N Ot Z95.5 PRESENCE OF CORONARY ANGIOPLASTY IMPLANT 07/31/2018 ROXI DUNLAP N Ot C83.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, LYMPH NOD 07/31/2018 ROXI DUNLAP N Ot E11.9 TYPE 2 DIABETES MELLITUS WITHOUT COMPLIC 07/31/2018 ROXI DUNLAP N Ot E78.5 HYPERLIPIDEMIA, UNSPECIFIED 07/31/2018 GERMÁN BOBAN N Ot I10 ESSENTIAL (PRIMARY) HYPERTENSION 07/31/2018 GERMÁN BOBAN N Ot I25.10 ATHSCL HEART DISEASE OF [place] CORONARY 07/31/2018 GERMÁNROXI N Ot Z79.84 DETENTION (CURRENT) USE OF ORAL HYPOGLYC 07/31/2018 GERMÁNROXI N Ot Z79.899 OTHER DETENTION (CURRENT) DRUG THERAPY 07/31/2018 ROXI DUNLAP N Ot Z87.891 PERSONAL HISTORY OF NICOTINE DEPENDENCE 07/31/2018 ROXI DUNLAP Ot Z95.5 PRESENCE OF CORONARY ANGIOPLASTY IMPLANT 08/03/2018 BEAN PEOPLES MD Ot Z01.818 ENCOUNTER FOR OTHER PREPROCEDURAL EXAMIN 08/07/2018 BEAN PEOPLES MD, Ot C85.90 NON-[place] LYMPHOMA, UNSPECIFIED, UNSPE 08/07/2018 BEAN PEOPLES MD Ot E11.9 TYPE 2 DIABETES MELLITUS WITHOUT COMPLIC 08/07/2018 BEAN PEOPLES MD Ot I1 0 ESSENTIAL (PRIMARY) HYPERTENSION 08/07/2018 BEAN PEOPLES MD, Ot I25.10 ATHSCL HEART DISEASE OF [place] CORONARY 08/07/2018 BEAN PEOPLES MD Ot Z0 8 ENCNTR FOR FOLLOW-UP EXAM AFTER TRTMT FO 08/07/2018 BEAN PEOPLES MD, Ot Z79.82 RELIABILITY TECHNICIAN (CURRENT) USE OF ASPIRIN 08/07/2018 BEAN PEOPLES MD Ot Z79.84 RELIABILITY TECHNICIAN (CURRENT) USE OF ORAL HYPOGLYC 08/07/2018 BEAN PEOPLES MD, Ot Z79.899 OTHER RELIABILITY TECHNICIAN (CURRENT) DRUG THERAPY 08/07/2018 BEAN PEOPLES MD, Ot Z87.891 PERSONAL HISTORY OF NICOTINE DEPENDENCE 08/07/2018 BEAN PEOPLES MD, Ot Z95.5 PRESENCE OF CORONARY ANGIOPLASTY IMPLANT 08/11/2018 ROXI DUNLAP Ot C83.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, LYMPH NOD 08/11/2018 ROXI DUNLAP Ot E11.9 TYPE 2 DIABETES MELLITUS WITHOUT COMPLIC 08/11/2018 ROXI DUNLAP Ot E78.5 HYPERLIPIDEMIA, UNSPECIFIED 08/11/2018 ROXI DUNLAP Ot I10 ESSENTIAL (PRIMARY) HYPERTENSION 08/11/2018 ROXI DUNLAP Ot I25.10 ATHSCL HEART DISEASE OF [place] CORONARY 08/11/2018 ROXI DUNLAP Ot K57.30 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 OR AB 08/11/2018 ROXI DUNLAP Ot Z79.84 DETENTION (CURRENT) USE OF ORAL HYPOGLYC 08/11/2018 ROXI DUNLAP Ot Z79.899 OTHER RELIABILITY TECHNICIAN (CURRENT) DRUG THERAPY 08/11/2018 ROXI DUNLAP Ot Z87.891 PERSONAL HISTORY OF NICOTINE DEPENDENCE 08/11/2018 ROXI DUNLAP Ot Z95.5 PRESENCE OF CORONARY ANGIOPLASTY IMPLANT 08/11/2018 RICHELLE FERRARI, BEAN Love Ot C85.90 NON-[place] LYMPHOMA, UNSPECIFIED, UNSPE 08/11/2018 BEAN PEOPLES MD Ot E11.9 TYPE 2 DIABETES MELLITUS WITHOUT COMPLIC 08/11/2018 BEAN PEOPLES MD Ot I1 0 ESSENTIAL (PRIMARY) HYPERTENSION 08/11/2018 BEAN PEOPLES MD Ot I25.10 ATHSCL HEART DISEASE OF [place] CORONARY 08/11/2018 BEAN PEOPLES MD Ot Z0 8 ENCNTR FOR FOLLOW-UP EXAM AFTER TRTMT FO 08/11/2018 BEAN PEOPLES MD Ot Z79.82 DETENTION (CURRENT) USE OF ASPIRIN 08/11/2018 BEAN PEOPLES MD Ot Z79.84 RELIABILITY TECHNICIAN (CURRENT) USE OF ORAL HYPOGLYC 08/11/2018 BEAN PEOPLES MD Ot Z79.899 OTHER RELIABILITY TECHNICIAN (CURRENT) DRUG THERAPY 08/11/2018 BEAN PEOPLES MD Ot Z87.891 PERSONAL HISTORY OF NICOTINE DEPENDENCE 08/11/2018 RICHELLE FERRARI, BEAN Love Ot Z95.5 PRESENCE OF CORONARY ANGIOPLASTY IMPLANT 08/14/2018 JUSTIN ARCEOP Ot C83.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, LYMPH NOD 08/14/2018 JUSTIN ARCEOP Ot K57.30 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 OR AB 08/14/2018 JUSTIN ARCOEP Ot R59.0 LOCALIZED ENLARGED LYMPH NODES 08/19/2018 JUSTIN ARCEO PROFESSOR OF BIOCHEMISTRY Ot C83.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, LYMPH NOD 08/19/2018 JUSTIN ARCEO PROFESSOR OF BIOCHEMISTRY Ot K57.30 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 OR AB 08/19/2018 JUSTIN ARCEO PROFESSOR OF BIOCHEMISTRY Ot R59.0 LOCALIZED ENLARGED LYMPH NODES 09/18/2018 ROXI DUNLAP Ot C83.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, LYMPH NOD 09/18/2018 ROXI DUNLAP Ot E11.9 TYPE 2 DIABETES MELLITUS WITHOUT COMPLIC 09/18/2018 ROXI DUNLAP Ot E78.5 HYPERLIPIDEMIA, UNSPECIFIED 09/18/2018 GERMÁN, VLADIMIRAN N Ot I10 ESSENTIAL (PRIMARY) HYPERTENSION 09/18/2018 GERMÁN, VLADIMIRAN N Ot I25.10 ATHSCL HEART DISEASE OF [place] CORONARY 09/18/2018 GERMÁN ROXI N Ot Z79.84 DETENTION (CURRENT) USE OF ORAL HYPOGLYC 09/18/2018 GERMÁN ROXI N Ot Z79.899 OTHER RELIABILITY TECHNICIAN (CURRENT) DRUG THERAPY 09/18/2018 GERMÁN ROXI N Ot Z87.891 PERSONAL HISTORY OF NICOTINE DEPENDENCE 09/18/2018 GERMÁN ROXI N Ot Z95.5 PRESENCE OF CORONARY ANGIOPLASTY IMPLANT 09/22/2018 GERMÁN VLADIMIRAN N Ot C83.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, LYMPH NOD 09/22/2018 GERMÁN BOBAN N Ot E11.9 TYPE 2 DIABETES MELLITUS WITHOUT COMPLIC 09/22/2018 GERMÁN ROXI N Ot E78.5 HYPERLIPIDEMIA, UNSPECIFIED 09/22/2018 GERMÁN BOBAN N Ot I10 ESSENTIAL (PRIMARY) HYPERTENSION 09/22/2018 GERMÁNROXI N Ot I25.10 ATHSCL HEART DISEASE OF [place] CORONARY 09/22/2018 GERMÁN ROXI N Ot Z79.84 DETENTION (CURRENT) USE OF ORAL HYPOGLYC 09/22/2018 GERMÁN VLADIMIRAN N Ot Z79.899 OTHER RELIABILITY TECHNICIAN (CURRENT) DRUG THERAPY 09/22/2018 GERMÁN ROXI N Ot Z87.891 PERSONAL HISTORY OF NICOTINE DEPENDENCE 09/22/2018 GERMÁNROXI N Ot Z95.5 PRESENCE OF CORONARY ANGIOPLASTY IMPLANT 10/28/2018 GERMÁNROXI N Ot C83.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, LYMPH NOD 10/28/2018 GERMÁNVLADIMIRAN N Ot E11.9 TYPE 2 DIABETES MELLITUS WITHOUT COMPLIC 10/28/2018 GERMÁN ROXI N Ot E78.5 HYPERLIPIDEMIA, UNSPECIFIED 10/28/2018 GERMÁN BOBAN N Ot I10 ESSENTIAL (PRIMARY) HYPERTENSION 10/28/2018 GERMÁN BOBAN N Ot I25.10 ATHSCL HEART DISEASE OF [place] CORONARY 10/28/2018 GERMÁNROXI N Ot Z79.84 DETENTION (CURRENT) USE OF ORAL HYPOGLYC 10/28/2018 GERMÁN BOBAN N Ot Z79.899 OTHER DETENTION (CURRENT) DRUG THERAPY 10/28/2018 GERMÁNROXI LEACH N Ot Z87.891 PERSONAL HISTORY OF NICOTINE DEPENDENCE 10/28/2018 GERMÁNROXI LEACH N Ot Z95.5 PRESENCE OF CORONARY ANGIOPLASTY IMPLANT 10/29/2018 ROXI DUNLAP N Ot C83.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, LYMPH NOD 10/29/2018 GERMÁN BOBAN N Ot E11.9 TYPE 2 DIABETES MELLITUS WITHOUT COMPLIC 10/29/2018 GERMÁN BOBSEBASTIEN N Ot E78.5 HYPERLIPIDEMIA, UNSPECIFIED 10/29/2018 GERMÁN, BOBAN N Ot I10 ESSENTIAL (PRIMARY) HYPERTENSION 10/29/2018 GERMÁN, BOBAN N Ot I25.10 ATHSCL HEART DISEASE OF [place] CORONARY 10/29/2018 ROXI DUNLAP N Ot Z79.84 RELIABILITY TECHNICIAN (CURRENT) USE OF ORAL HYPOGLYC 10/29/2018 GERMÁNROXI LEACH N Ot Z79.899 OTHER RELIABILITY TECHNICIAN (CURRENT) DRUG THERAPY 10/29/2018 GERMÁNROXI LEACH N Ot Z87.891 PERSONAL HISTORY OF NICOTINE DEPENDENCE 10/29/2018 GERMÁNROXI N Ot Z95.5 PRESENCE OF CORONARY ANGIOPLASTY IMPLANT 11/03/2018 ROXI DUNLAP N Ot C83.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, LYMPH NOD 11/03/2018 GERMÁN, BOBAN N Ot E11.9 TYPE 2 DIABETES MELLITUS WITHOUT COMPLIC 11/03/2018 GERMÁN BOBAN N Ot E78.5 HYPERLIPIDEMIA, UNSPECIFIED 11/03/2018 GERMÁN BOBAN N Ot I10 ESSENTIAL (PRIMARY) HYPERTENSION 11/03/2018 GERMÁN BOBSEBASTIEN N Ot I25.10 ATHSCL HEART DISEASE OF [place] CORONARY 11/03/2018 GERMÁN BOBAN N Ot Z79.84 RELIABILITY TECHNICIAN (CURRENT) USE OF ORAL HYPOGLYC 11/03/2018 GERMÁN BOBAN N Ot Z79.899 OTHER RELIABILITY TECHNICIAN (CURRENT) DRUG THERAPY 11/03/2018 GERMÁN BOBAN N Ot Z87.891 PERSONAL HISTORY OF NICOTINE DEPENDENCE 11/03/2018 GERMÁN BOBAN N Ot Z95.5 PRESENCE OF CORONARY ANGIOPLASTY IMPLANT 11/12/2018 BAIMAAPRIL PROFESSOR OF BIOCHEMISTRY Ot E78.5 HYPERLIPIDEMIA, UNSPECIFIED 11/12/2018 BAIMAHOLLISAPRIL L PROFESSOR OF BIOCHEMISTRY Ot I25.10 ATHSCL HEART DISEASE OF [place] CORONARY 12/01/2018 BAIAPRIL US PROFESSOR OF BIOCHEMISTRY Ot E78.5 HYPERLIPIDEMIA, UNSPECIFIED 12/01/2018 APRIL BARRON PROFESSOR OF BIOCHEMISTRY Ot I25.10 ATHSCL HEART DISEASE OF [place] CORONARY 02/05/2019 GERMÁN, BOBAN N Ot C83.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, LYMPH NOD 02/05/2019 GERMÁN, BOBAN N Ot E11.9 TYPE 2 DIABETES MELLITUS WITHOUT COMPLIC 02/05/2019 GERMÁN, BOBAN N Ot E78.5 HYPERLIPIDEMIA, UNSPECIFIED 02/05/2019 GERMÁN, BOBAN N Ot I10 ESSENTIAL (PRIMARY) HYPERTENSION 02/05/2019 GERMÁN, BOBAN N Ot I25.10 ATHSCL HEART DISEASE OF [place] CORONARY 02/05/2019 GERMÁN BOBAN N Ot Z79.84 RELIABILITY TECHNICIAN (CURRENT) USE OF ORAL HYPOGLYC 02/05/2019 GERMÁN, BOBAN N Ot Z79.899 OTHER DETENTION (CURRENT) DRUG THERAPY 02/05/2019 GERMÁN, BOBAN N Ot Z87.891 PERSONAL HISTORY OF NICOTINE DEPENDENCE 02/05/2019 GERMÁN, BOBAN N Ot Z95.5 PRESENCE OF CORONARY ANGIOPLASTY IMPLANT 03/18/2019 GERMÁN, BOBAN N Ot C83.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, LYMPH NOD 03/18/2019 GERMÁN, BOBAN N Ot E11.9 TYPE 2 DIABETES MELLITUS WITHOUT COMPLIC 03/18/2019 GERMÁN, BOBAN N Ot E78.5 HYPERLIPIDEMIA, UNSPECIFIED 03/18/2019 GERMÁN, BOBAN N Ot I10 ESSENTIAL (PRIMARY) HYPERTENSION 03/18/2019 GERMÁN, BOBAN N Ot I25.10 ATHSCL HEART DISEASE OF [place] CORONARY 03/18/2019 GERMÁN, BOBAN N Ot Z79.84 DETENTION (CURRENT) USE OF ORAL HYPOGLYC 03/18/2019 GERMÁN, BOBAN N Ot Z79.899 OTHER RELIABILITY TECHNICIAN (CURRENT) DRUG THERAPY 03/18/2019 GERMÁN, BOBAN N Ot Z87.891 PERSONAL HISTORY OF NICOTINE DEPENDENCE 03/18/2019 GERMÁN, BOBAN N Ot Z95.5 PRESENCE OF CORONARY ANGIOPLASTY IMPLANT 05/02/2019 GERMÁN, BOBAN N Ot C83.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, LYMPH NOD 05/02/2019 GERMÁN, BOBAN N Ot E11.9 TYPE 2 DIABETES MELLITUS WITHOUT COMPLIC 05/02/2019 ROXI DUNLAP N Ot E78.5 HYPERLIPIDEMIA, UNSPECIFIED 05/02/2019 GERMÁNVLADIMIR LEACHAN N Ot I10 ESSENTIAL (PRIMARY) HYPERTENSION 05/02/2019 ROXI DUNLAP N Ot I25.10 ATHSCL HEART DISEASE OF [place] CORONARY 05/02/2019 ROXI DUNLAP N Ot Z79.84 DETENTION (CURRENT) USE OF ORAL HYPOGLYC 05/02/2019 ROXI DUNLAP N Ot Z79.899 OTHER RELIABILITY TECHNICIAN (CURRENT) DRUG THERAPY 05/02/2019 ROXI DUNLAP N Ot Z87.891 PERSONAL HISTORY OF NICOTINE DEPENDENCE 05/02/2019 GERMÁNVLADIMIR LEACHAN N Ot Z95.5 PRESENCE OF CORONARY ANGIOPLASTY IMPLANT 05/03/2019 ROXI DUNLAP N Ot C83.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, LYMPH NOD 05/03/2019 ROXI DUNLAP N Ot E11.9 TYPE 2 DIABETES MELLITUS WITHOUT COMPLIC 05/03/2019 ROXI DUNLAP N Ot E78.5 HYPERLIPIDEMIA, UNSPECIFIED 05/03/2019 GERMÁNROXI LEACH N Ot I10 ESSENTIAL (PRIMARY) HYPERTENSION 05/03/2019 ROXI DUNLAP N Ot I25.10 ATHSCL HEART DISEASE OF [place] CORONARY 05/03/2019 ROXI DUNLAP N Ot Z79.84 DETENTION (CURRENT) USE OF ORAL HYPOGLYC 05/03/2019 ROXI DUNLAP N Ot Z79.899 OTHER RELIABILITY TECHNICIAN (CURRENT) DRUG THERAPY 05/03/2019 ROXI DUNLAP N Ot Z87.891 PERSONAL HISTORY OF NICOTINE DEPENDENCE 05/03/2019 GERMÁNROXI LEACH N Ot Z95.5 PRESENCE OF CORONARY ANGIOPLASTY IMPLANT 05/06/2019 GERMÁN BOBAN N Ot C83.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, LYMPH NOD 05/09/2019 GERMÁN BOBAN N Ot C83.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, LYMPH NOD 05/13/2019 BAIMA, APRIL L PROFESSOR OF BIOCHEMISTRY Ot E78.5 HYPERLIPIDEMIA, UNSPECIFIED 05/13/2019 BAIMA, APRIL L PROFESSOR OF BIOCHEMISTRY Ot I25.10 ATHSCL HEART DISEASE OF [place] CORONARY 05/17/2019 BAIMA, APRIL L PROFESSOR OF BIOCHEMISTRY Ot E78.5 HYPERLIPIDEMIA, UNSPECIFIED 05/17/2019 BAIMA, APRIL L PROFESSOR OF BIOCHEMISTRY Ot I25.10 ATHSCL HEART DISEASE OF [place] CORONARY 05/25/2019 GERMÁN, BOBAN N Ot C83.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, LYMPH NOD 05/31/2019 GERMÁN, BOBAN N Ot C83.30 DIFFUSE LARGE B-CELL LYMPHOMA, UNSPECIFI 05/31/2019 GERMÁN, BOBAN N Ot E78.5 HYPERLIPIDEMIA, UNSPECIFIED 05/31/2019 GERMÁN, BOBAN N Ot I10 ESSENTIAL (PRIMARY) HYPERTENSION 05/31/2019 GERMÁN, BOBAN N Ot I25.10 ATHSCL HEART DISEASE OF [place] CORONARY 05/31/2019 GERMÁN, BOBAN N Ot R59.0 LOCALIZED ENLARGED LYMPH NODES 05/31/2019 GERMÁN, BOBAN N Ot R97.20 ELEVATED PROSTATE SPECIFIC ANTIGEN [PSA] 05/31/2019 GERMÁN, BOBAN N Ot Z92.21 PERSONAL HISTORY OF ANTINEOPLASTIC CHEMO 06/01/2019 APRIL BARRON PROFESSOR OF BIOCHEMISTRY Ot E78.5 HYPERLIPIDEMIA, UNSPECIFIED 06/01/2019 APRIL BARRON PROFESSOR OF BIOCHEMISTRY Ot I25.10 ATHSCL HEART DISEASE OF [place] CORONARY 06/03/2019 GERMÁN, BOBAN N Ot C83.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, LYMPH NOD 06/18/2019 GERMÁN, BOBAN N Ot C83.30 DIFFUSE LARGE B-CELL LYMPHOMA, UNSPECIFI 06/18/2019 GERMÁN, BOBAN N Ot E78.5 HYPERLIPIDEMIA, UNSPECIFIED 06/18/2019 GERMÁN, BOBAN N Ot I10 ESSENTIAL (PRIMARY) HYPERTENSION 06/18/2019 GERMÁN BOBAN N Ot I25.10 ATHSCL HEART DISEASE OF [place] CORONARY 06/18/2019 GERMÁN BOBAN N Ot R59.0 LOCALIZED ENLARGED LYMPH NODES 06/18/2019 GERMÁN BOBAN N Ot R97.20 ELEVATED PROSTATE SPECIFIC ANTIGEN [PSA] 06/18/2019 GERMÁN BOBAN N Ot Z92.21 PERSONAL HISTORY OF ANTINEOPLASTIC CHEMO 06/23/2019 GERMÁN, BOBAN N Ot C83.30 DIFFUSE LARGE B-CELL LYMPHOMA, UNSPECIFI 06/23/2019 GERMÁN, BOBAN N Ot E78.5 HYPERLIPIDEMIA, UNSPECIFIED 06/23/2019 GERMÁN, BOBAN N Ot I10 ESSENTIAL (PRIMARY) HYPERTENSION 06/23/2019 GERMÁN, BOBAN N Ot I25.10 ATHSCL HEART DISEASE OF [place] CORONARY 06/23/2019 ROXI DUNLAP N Ot R59.0 LOCALIZED ENLARGED LYMPH NODES 06/23/2019 ROXI DUNLAP Ot R97.20 ELEVATED PROSTATE SPECIFIC ANTIGEN [PSA] 06/23/2019 ROXI DUNLAP Ot Z92.21 PERSONAL HISTORY OF ANTINEOPLASTIC CHEMO 07/13/2019 ROXI DUNLAP N Ot C83.30 DIFFUSE LARGE B-CELL LYMPHOMA, UNSPECIFI 07/13/2019 ROXI DUNLAP N Ot E78.5 HYPERLIPIDEMIA, UNSPECIFIED 07/13/2019 ROXI DUNLAP N Ot I10 ESSENTIAL (PRIMARY) HYPERTENSION 07/13/2019 ROXI DUNLAP N Ot I25.10 ATHSCL HEART DISEASE OF [place] CORONARY 07/13/2019 ROXI DUNLAP N Ot R59.0 LOCALIZED ENLARGED LYMPH NODES 07/13/2019 ROXI DUNLAP Ot R97.20 ELEVATED PROSTATE SPECIFIC ANTIGEN [PSA] 07/13/2019 ROXI DUNLAP Ot Z92.21 PERSONAL HISTORY OF ANTINEOPLASTIC CHEMO 07/13/2019 BAIMA, APRIL L PROFESSOR OF BIOCHEMISTRY Ot 272.4 HYPERLIPIDEMIA NEC/NOS 07/13/2019 BAIMA, APRIL L PROFESSOR OF BIOCHEMISTRY Ot 414.00 CORON ATHEROSCLER NOS TYPE VESSEL, NATIV 07/13/2019 BAIMA, APRIL L PROFESSOR OF BIOCHEMISTRY Ot 447.9 ARTERIAL DISEASE NOS 07/13/2019 SHIELA DO, LARRY A Ot 241.0 NONTOX UNINODULAR GOITER 07/13/2019 BAIMA, APRIL L PROFESSOR OF BIOCHEMISTRY Ot 272.4 HYPERLIPIDEMIA NEC/NOS 07/13/2019 BAIMA, APRIL L PROFESSOR OF BIOCHEMISTRY Ot 414.00 CORON ATHEROSCLER NOS TYPE VESSEL, NATIV 07/13/2019 BAIMA, APRIL L PROFESSOR OF BIOCHEMISTRY Ot 272.4 HYPERLIPIDEMIA NEC/NOS 07/13/2019 LESLIE FERRARI, VENKAT A Ot C61 MALIGNANT NEOPLASM OF PROSTATE 07/13/2019 BAIMA, APRIL L PROFESSOR OF BIOCHEMISTRY Ot E78.5 HYPERLIPIDEMIA, UNSPECIFIED 07/13/2019 BAIMA, APRIL L PROFESSOR OF BIOCHEMISTRY Ot I25.10 ATHSCL HEART DISEASE OF [place] CORONARY 07/13/2019 BEATRICE APRIL L PROFESSOR OF BIOCHEMISTRY Ot E78.5 HYPERLIPIDEMIA, UNSPECIFIED 07/13/2019 BAIMA, APRIL L PROFESSOR OF BIOCHEMISTRY Ot I25.10 ATHSCL HEART DISEASE OF [place] CORONARY 07/13/2019 VICTOR M FERRARI [facility], [facility] CCDS Ot E78.4 OTHER HYPERLIPIDEMIA 07/13/2019 VICTOR M FERRARI [facility], ALI FACP CCDS Ot I10 ESSENTIAL (PRIMARY) HYPERTENSION 07/13/2019 VICTOR M FERRARI [facility], [facility] FACP CCDS Ot I25.10 ATHSCL HEART DISEASE OF [place] CORONARY 07/13/2019 VICTOR M FERRARI [facility], [facility] CCD[facility] Ot I65.23 OCCLUSION AND STENOSIS OF [place]ILATERAL [place] 07/13/2019 VICTOR M FERRARI [facility], [facility] CCDS Ot Z72.0 TOBACCO USE 07/13/2019 GELLENDER DO, LARRY Wiley Ot M25.531 PAIN IN RIGHT WRIST 07/13/2019 GELLENDER DO, LARRY Wiley Ot E04.1 NONTOXIC SINGLE THYROID NODULE 07/13/2019 GELLENDER DO, LARRY Wiley Ot R22.1 LOCALIZED SWELLING, MASS AND LUMP, NECK 07/13/2019 GELLENDER DO, LARRY Wiley Ot M89.9 DISORDER OF BONE, UNSPECIFIED 07/13/2019 GELLENDER DO, LARRY Wiley Ot R22.1 LOCALIZED SWELLING, MASS AND LUMP, NECK 07/13/2019 GELLENDER DO, LARRY Wiley Ot R59.0 LOCALIZED ENLARGED LYMPH NODES 07/13/2019 GELLENDER DO, LARRY Wiley Ot M89.9 DISORDER OF BONE, UNSPECIFIED 07/13/2019 GELLENDER DO, LARRY Wiley Ot R59.0 LOCALIZED ENLARGED LYMPH NODES 07/13/2019 GELLENDER DO, LARRY Wiley Ot R22.1 LOCALIZED SWELLING, MASS AND LUMP, NECK 07/13/2019 GELLENDER DO, LARRY Wiley Ot C83.30 DIFFUSE LARGE B-CELL LYMPHOMA, UNSPECIFI 07/13/2019 GELLENDER DO, LARRY Wiley Ot J35.9 CHRONIC DISEASE OF TONSILS AND ADENOIDS, 07/13/2019 GELLENDER DO, LARRY Wiley Ot R59.0 LOCALIZED ENLARGED LYMPH NODES 07/13/2019 ROXI DUNLAP Ot C85.90 NON-[place] LYMPHOMA, UNSPECIFIED, UNSPE 07/13/2019 ROXI DUNLAP Ot Z01.810 ENCOUNTER FOR PREPROCEDURAL CARDIOVASCUL 07/13/2019 APRIL BARRON PROFESSOR OF BIOCHEMISTRY Ot E78.5 HYPERLIPIDEMIA, UNSPECIFIED 07/13/2019 BAIMA, APRIL L PROFESSOR OF BIOCHEMISTRY Ot I 10 ESSENTIAL (PRIMARY) HYPERTENSION 07/13/2019 APRIL BARRON L PROFESSOR OF BIOCHEMISTRY Ot I25.10 ATHSCL HEART DISEASE OF [place] CORONARY 07/13/2019 APRIL BARRON PROFESSOR OF BIOCHEMISTRY Ot I77.9 DISORDER OF ARTERIES AND ARTERIOLES, UNS 07/13/2019 JUSTIN ARCEO PROFESSOR OF BIOCHEMISTRY Ot C83.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, LYMPH NOD 07/13/2019 ROXI DUNLAP Ot C83.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, LYMPH NOD 07/13/2019 ROXI DUNLAP Ot Z01.89 ENCOUNTER FOR OTHER SPECIFIED SPECIAL EX 07/13/2019 APRIL BARRON L PROFESSOR OF BIOCHEMISTRY Ot E78.4 OTHER HYPERLIPIDEMIA 07/13/2019 APRIL BARRON L PROFESSOR OF BIOCHEMISTRY Ot I 10 ESSENTIAL (PRIMARY) HYPERTENSION 07/13/2019 APRIL BARRON PROFESSOR OF BIOCHEMISTRY Ot I25.10 ATHSCL HEART DISEASE OF [place] CORONARY 07/13/2019 APRIL BARRON L PROFESSOR OF BIOCHEMISTRY Ot I65.23 OCCLUSION AND STENOSIS OF BILATERAL [place] 07/13/2019 VICTOR M FERRARI FAC, ALI FACP CCDS Ot E78.4 OTHER HYPERLIPIDEMIA 07/13/2019 VICTOR M FERRARI FACC, ALI FACP CCDS Ot I10 ESSENTIAL (PRIMARY) HYPERTENSION 07/13/2019 VICTOR M FERRARI FACC, ALI FACP CCDS Ot I25.10 ATHSCL HEART DISEASE OF [place] CORONARY 07/13/2019 VICTOR M FERRARI FACC, ALI FACP CCDS Ot I65.23 OCCLUSION AND STENOSIS OF BILATERAL [place] 07/13/2019 VICTOR M FERRARI FACC, ALI FACP CCDS Ot K76.9 LIVER DISEASE, UNSPECIFIED 07/13/2019 NATASHA LEAHY MD Ot C83.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, LYMPH NOD 07/13/2019 NATASHA LEAHY MD Ot K44.9 DIAPHRAGMATIC HERNIA WITHOUT OBSTRUCTION 07/13/2019 NATASHA LEAHY MD Ot R59.0 LOCALIZED ENLARGED LYMPH NODES 07/13/2019 ROXI DUNLAP Ot M51.34 OTHER INTERVERTEBRAL DISC DEGENERATION, 07/13/2019 ROXI DUNLAP Ot Z85.72 PERSONAL HISTORY OF NON-[place]IN LYMPHOMA 07/13/2019 ROXI DUNLAP Ot Z98.890 OTHER SPECIFIED POSTPROCEDURAL STATES 07/13/2019 ROXI DUNLAP Ot 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, LYMPH NODES OF HEA 07/13/2019 GERMÁN, ROXI N Ot K76.89 OTHER SPECIFIED DISEASES OF LIVER 07/13/2019 APRIL BARRON PROFESSOR OF BIOCHEMISTRY Ot E78.4 OTHER HYPERLIPIDEMIA 07/13/2019 BEATRICE APRIL L PROFESSOR OF BIOCHEMISTRY Ot I25.10 ATHSCL HEART DISEASE OF [place] CORONARY 07/13/2019 JUSTIN ARCEO PROFESSOR OF BIOCHEMISTRY Ot C83.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, LYMPH NOD 07/13/2019 JUSTIN ARCEO S PROFESSOR OF BIOCHEMISTRY Ot K57.30 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 OR AB 07/13/2019 JUSTIN ARCEO S PROFESSOR OF BIOCHEMISTRY Ot R59.0 LOCALIZED ENLARGED LYMPH NODES 07/13/2019 APRIL BARRON PROFESSOR OF BIOCHEMISTRY Ot E78.5 HYPERLIPIDEMIA, UNSPECIFIED 07/13/2019 BEATRICE APRIL L PROFESSOR OF BIOCHEMISTRY Ot I25.10 ATHSCL HEART DISEASE OF [place] CORONARY 07/13/2019 APRIL BARRON PROFESSOR OF BIOCHEMISTRY Ot E78.5 HYPERLIPIDEMIA, UNSPECIFIED 07/13/2019 APRIL BARRON PROFESSOR OF BIOCHEMISTRY Ot I25.10 ATHSCL HEART DISEASE OF [place] CORONARY 07/13/2019 GERMÁN, ROXI N Ot C83.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, LYMPH NOD 07/13/2019 APRIL BARRON PROFESSOR OF BIOCHEMISTRY Ot E78.5 HYPERLIPIDEMIA, UNSPECIFIED 07/13/2019 BEATRICE APRIL L PROFESSOR OF BIOCHEMISTRY Ot I25.10 ATHSCL HEART DISEASE OF [place] CORONARY 07/13/2019 GERMÁNROXI N Ot C83.30 DIFFUSE LARGE B-CELL LYMPHOMA, UNSPECIFI 07/13/2019 ROXI DUNLAP N Ot E78.5 HYPERLIPIDEMIA, UNSPECIFIED 07/13/2019 GERMÁNROXI N Ot I10 ESSENTIAL (PRIMARY) HYPERTENSION 07/13/2019 ROXI DUNLAP N Ot I25.10 ATHSCL HEART DISEASE OF [place] CORONARY 07/13/2019 GERMÁNROXI N Ot R59.0 LOCALIZED ENLARGED LYMPH NODES 07/13/2019 ROXI DUNLAP N Ot R97.20 ELEVATED PROSTATE SPECIFIC ANTIGEN [PSA] 07/13/2019 GERMÁNROXI N Ot Z92.21 PERSONAL HISTORY OF ANTINEOPLASTIC CHEMO 07/13/2019 APRIL BARRON L PROFESSOR OF BIOCHEMISTRY Ot 272.4 HYPERLIPIDEMIA NEC/NOS 07/13/2019 BAIMA, APRIL L PROFESSOR OF BIOCHEMISTRY Ot 414.00 CORON ATHEROSCLER NOS TYPE VESSEL, NATIV 07/13/2019 BAIMA, APRIL L PROFESSOR OF BIOCHEMISTRY Ot 447.9 ARTERIAL DISEASE NOS 07/13/2019 SHIELA CARTERLARRY Ot 241.0 NONTOX UNINODULAR GOITER 07/13/2019 BAIMA, APRIL L PROFESSOR OF BIOCHEMISTRY Ot 272.4 HYPERLIPIDEMIA NEC/NOS 07/13/2019 BAIMA, APRIL L PROFESSOR OF BIOCHEMISTRY Ot 414.00 CORON ATHEROSCLER NOS TYPE VESSEL, NATIV 07/13/2019 BAIMA, APRIL L PROFESSOR OF BIOCHEMISTRY Ot 272.4 HYPERLIPIDEMIA NEC/NOS 07/13/2019 LESLIE FERRARI, VENKAT Wliey Ot C61 MALIGNANT NEOPLASM OF PROSTATE 07/13/2019 BAIMA, APRIL L PROFESSOR OF BIOCHEMISTRY Ot E78.5 HYPERLIPIDEMIA, UNSPECIFIED 07/13/2019 BAIMA, APRIL L PROFESSOR OF BIOCHEMISTRY Ot I25.10 ATHSCL HEART DISEASE OF [place] CORONARY 07/13/2019 BAIMA, APRIL L PROFESSOR OF BIOCHEMISTRY Ot E78.5 HYPERLIPIDEMIA, UNSPECIFIED 07/13/2019 BAIMA, APRIL L PROFESSOR OF BIOCHEMISTRY Ot I25.10 ATHSCL HEART DISEASE OF [place] CORONARY 07/13/2019 VICTOR M FERRARI FACC, ALI FACP CCDS Ot E78.4 OTHER HYPERLIPIDEMIA 07/13/2019 VICTOR M FERRARI FACC, ALI FACP CCDS Ot I10 ESSENTIAL (PRIMARY) HYPERTENSION 07/13/2019 VICTOR M FERRARI FACC, ALI FACP CCDS Ot I25.10 ATHSCL HEART DISEASE OF [place] CORONARY 07/13/2019 VICTOR M FERRARI FACC, ALI FACP CCDS Ot I65.23 OCCLUSION AND STENOSIS OF BILATERAL [place] 07/13/2019 VICTOR M FERRARI FACC, ALI FACP CCDS Ot Z72.0 TOBACCO USE 07/13/2019 ARLENKEMARENRIQUEZLARRY Ot M25.531 PAIN IN RIGHT WRIST 07/13/2019 LARRY KUO DO Ot E04.1 NONTOXIC SINGLE THYROID NODULE 07/13/2019 LARRY KUO DO Ot R22.1 LOCALIZED SWELLING, MASS AND LUMP, NECK 07/13/2019 SHARONENRIQUEZLARRY Ot M89.9 DISORDER OF BONE, UNSPECIFIED 07/13/2019 LARRY KUO DO Ot R22.1 LOCALIZED SWELLING, MASS AND LUMP, NECK 07/13/2019 [facility] DO, LARRY Wiley Ot R59.0 LOCALIZED ENLARGED LYMPH NODES 07/13/2019 [facility] DO, LARRY Wiley Ot M89.9 DISORDER OF BONE, UNSPECIFIED 07/13/2019 [facility] DO, LARRY Wiley Ot R59.0 LOCALIZED ENLARGED LYMPH NODES 07/13/2019 [facility], LARRY Wiley Ot R22.1 LOCALIZED SWELLING, MASS AND LUMP, NECK 07/13/2019 [facility], LARYR Wiley Ot C83.30 DIFFUSE LARGE B-CELL LYMPHOMA, UNSPECIFI 07/13/2019 [facility], LARRY Wiley Ot J35.9 CHRONIC DISEASE OF TONSILS AND ADENOIDS, 07/13/2019 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 DISEASE OF [place] CORONARY 07/13/2019 APRIL BARRON PROFESSOR OF BIOCHEMISTRY Ot I77.9 DISORDER OF ARTERIES AND ARTERIOLES, UNS 07/13/2019 JUSTIN ARCEO PROFESSOR OF BIOCHEMISTRY Ot C83.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, LYMPH NOD 07/13/2019 ROXI DUNLAP Ot C83.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, LYMPH NOD 07/13/2019 ROXI DUNLAP Ot Z01.89 ENCOUNTER FOR OTHER SPECIFIED SPECIAL EX 07/13/2019 HOLLIS BARRONHER L PROFESSOR OF BIOCHEMISTRY Ot E78.4 OTHER HYPERLIPIDEMIA 07/13/2019 APRIL BARRON L PROFESSOR OF BIOCHEMISTRY Ot I 10 ESSENTIAL (PRIMARY) HYPERTENSION 07/13/2019 KASANDRAMAHOLLISAPRIL L PROFESSOR OF BIOCHEMISTRY Ot I25.10 ATHSCL HEART DISEASE OF [place] CORONARY 07/13/2019 APRIL BARRON L PROFESSOR OF BIOCHEMISTRY Ot I65.23 OCCLUSION AND STENOSIS OF [place]AL [place] 07/13/2019 VICTOR M FERRARI FACC, ADONAY GREGORYP CCDS Ot E78.4 OTHER HYPERLIPIDEMIA 07/13/2019 VICTOR M FERRARI [facility], ALI FACP CCDS Ot I10 ESSENTIAL (PRIMARY) HYPERTENSION 07/13/2019 VICTOR M FERRARI [facility], [facility] CCD[facility] Ot I25.10 ATHSCL HEART DISEASE OF [place] CORONARY 07/13/2019 VICTOR M FERRARI [facility], ALI FACP CCDS Ot I65.23 OCCLUSION AND STENOSIS OF [place] 07/13/2019 VICTOR M FERRARI [facility], [facility] CCD[facility] Ot K76.9 LIVER DISEASE, UNSPECIFIED 07/13/2019 NATASHA LEAHY MD Ot C83.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, LYMPH NOD 07/13/2019 NATASHA LEAHY MD Ot K44.9 DIAPHRAGMATIC HERNIA WITHOUT OBSTRUCTION 07/13/2019 NATASHA LEAHY MD Ot R59.0 LOCALIZED ENLARGED LYMPH NODES 07/13/2019 ROXI DUNLAP Ot M51.34 OTHER INTERVERTEBRAL DISC DEGENERATION, 07/13/2019 ROXI DUNLAP Ot Z85.72 PERSONAL HISTORY OF NON-HODGKIN LYMPHOMA 07/13/2019 ROXI DUNLAP Ot Z98.890 OTHER SPECIFIED POSTPROCEDURAL STATES 07/13/2019 ROXI DUNLAP Ot 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, LYMPH NODES OF HEA 07/13/2019 ROXI DUNLAP Ot K76.89 OTHER SPECIFIED DISEASES OF LIVER 07/13/2019 APRIL BARRON PROFESSOR OF BIOCHEMISTRY Ot E78.4 OTHER HYPERLIPIDEMIA 07/13/2019 APRIL BARRON PROFESSOR OF BIOCHEMISTRY Ot I25.10 ATHSCL HEART DISEASE OF [place] CORONARY 07/13/2019 JUSTIN ARCEO PROFESSOR OF BIOCHEMISTRY Ot C83.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, LYMPH NOD 07/13/2019 JUSTIN ARCEO PROFESSOR OF BIOCHEMISTRY Ot K57.30 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 OR AB 07/13/2019 JUSTIN ARCEO PROFESSOR OF BIOCHEMISTRY Ot R59.0 LOCALIZED ENLARGED LYMPH NODES 07/13/2019 APRIL BARRON PROFESSOR OF BIOCHEMISTRY Ot E78.5 HYPERLIPIDEMIA, UNSPECIFIED 07/13/2019 APRIL BARRON PROFESSOR OF BIOCHEMISTRY Ot I25.10 ATHSCL HEART DISEASE OF [place] CORONARY 07/13/2019 APRIL BARRON PROFESSOR OF BIOCHEMISTRY Ot E78.5 HYPERLIPIDEMIA, UNSPECIFIED 07/13/2019 APRIL BARRON PROFESSOR OF BIOCHEMISTRY Ot I25.10 ATHSCL HEART DISEASE OF [place] CORONARY 07/13/2019 ROXI DUNLAP N Ot C83.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, LYMPH NOD 07/13/2019 KASANDRAMAGEN, APRIL L PROFESSOR OF BIOCHEMISTRY Ot E78.5 HYPERLIPIDEMIA, UNSPECIFIED 07/13/2019 BAIMA, APRIL L PROFESSOR OF BIOCHEMISTRY Ot I25.10 ATHSCL HEART DISEASE OF [place] CORONARY 07/13/2019 ROXI DUNLAP N Ot C83.30 DIFFUSE LARGE B-CELL LYMPHOMA, UNSPECIFI 07/13/2019 ROXI DUNLAP N Ot E78.5 HYPERLIPIDEMIA, UNSPECIFIED 07/13/2019 ROXI DUNLAP N Ot I10 ESSENTIAL (PRIMARY) HYPERTENSION 07/13/2019 ROXI DUNLAP N Ot I25.10 ATHSCL HEART DISEASE OF [place] CORONARY 07/13/2019 ROXI DUNLAP N Ot R59.0 LOCALIZED ENLARGED LYMPH NODES 07/13/2019 ROXI DUNLAP N Ot R97.20 ELEVATED PROSTATE SPECIFIC ANTIGEN [PSA] 07/13/2019 ROXI DUNLAP N Ot Z92.21 PERSONAL HISTORY OF ANTINEOPLASTIC CHEMO 07/13/2019 KASANDRAMA, APRIL L PROFESSOR OF BIOCHEMISTRY Ot 272.4 HYPERLIPIDEMIA NEC/NOS 07/13/2019 BAIMA, APRIL L PROFESSOR OF BIOCHEMISTRY Ot 414.00 CORON ATHEROSCLER NOS TYPE VESSEL, NATIV 07/13/2019 BAIMA, APRIL L PROFESSOR OF BIOCHEMISTRY Ot 447.9 ARTERIAL DISEASE NOS 07/13/2019 LARRY KUO DO A Ot 241.0 NONTOX UNINODULAR GOITER 07/13/2019 BAIMA, APRIL L PROFESSOR OF BIOCHEMISTRY Ot 272.4 HYPERLIPIDEMIA NEC/NOS 07/13/2019 BAIMA, APRIL L PROFESSOR OF BIOCHEMISTRY Ot 414.00 CORON ATHEROSCLER NOS TYPE VESSEL, NATIV 07/13/2019 BAIMA, APRIL L PROFESSOR OF BIOCHEMISTRY Ot 272.4 HYPERLIPIDEMIA NEC/NOS 07/13/2019 LESLIE FERRARI, VENKAT A Ot C61 MALIGNANT NEOPLASM OF PROSTATE 07/13/2019 BAIMA, APRIL L PROFESSOR OF BIOCHEMISTRY Ot E78.5 HYPERLIPIDEMIA, UNSPECIFIED 07/13/2019 BAIMA, APRIL L PROFESSOR OF BIOCHEMISTRY Ot I25.10 ATHSCL HEART DISEASE OF [place] CORONARY 07/13/2019 KASANDRAMA, APRIL L PROFESSOR OF BIOCHEMISTRY Ot E78.5 HYPERLIPIDEMIA, UNSPECIFIED 07/13/2019 BAIMA, APRIL L PROFESSOR OF BIOCHEMISTRY Ot I25.10 ATHSCL HEART DISEASE OF [place] CORONARY 07/13/2019 VICTOR M GREGORY, [facility] Ot E78.4 OTHER HYPERLIPIDEMIA 07/13/2019 VICTOR M FERRARI FACC, ALI FACP CCDS Ot I10 ESSENTIAL (PRIMARY) HYPERTENSION 07/13/2019 VICTOR M GREGORY, ALI FACP CCDS Ot I25.10 ATHSCL HEART DISEASE OF [place] CORONARY 07/13/2019 VICTOR M FERRARI FACC, ALI FACP CCDS Ot I65.23 OCCLUSION AND STENOSIS OF [place] 07/13/2019 VICTOR M GREGORY, ALI FACP CCDS Ot Z72.0 TOBACCO USE 07/13/2019 GELLENDER DO, LARRY Wiley Ot M25.531 PAIN IN RIGHT WRIST 07/13/2019 GELLENDER DO, LARRY Wiley Ot E04.1 NONTOXIC SINGLE THYROID NODULE 07/13/2019 GELLENDER DO, LARRY Wiley Ot R22.1 LOCALIZED SWELLING, MASS AND LUMP, NECK 07/13/2019 GELLENDER DO, LARRY Wiley Ot M89.9 DISORDER OF BONE, UNSPECIFIED 07/13/2019 GELLENDER DO, LARRY Wiley Ot R22.1 LOCALIZED SWELLING, MASS AND LUMP, NECK 07/13/2019 GELLENDER DO, LARRY Wiley Ot R59.0 LOCALIZED ENLARGED LYMPH NODES 07/13/2019 GELLENDER DO, LARRY Wiley Ot M89.9 DISORDER OF BONE, UNSPECIFIED 07/13/2019 GELLENDER DO, LARRY Wiley Ot R59.0 LOCALIZED ENLARGED LYMPH NODES 07/13/2019 GELLENDER DO, LARRY Wiley Ot R22.1 LOCALIZED SWELLING, MASS AND LUMP, NECK 07/13/2019 GELLENDER DO, LARRY Wiley Ot C83.30 DIFFUSE LARGE B-CELL LYMPHOMA, UNSPECIFI 07/13/2019 GELLENDER DO, LARRY Wiley Ot J35.9 CHRONIC DISEASE OF TONSILS AND ADENOIDS, 07/13/2019 GELLENDER DO, LARRY Wiley Ot R59.0 LOCALIZED ENLARGED LYMPH NODES 07/13/2019 ROXI DUNLAP Ot C85.90 NON-HODGKIN LYMPHOMA, UNSPECIFIED, UNSPE 07/13/2019 ROXI DUNLAP Ot Z01.810 ENCOUNTER FOR PREPROCEDURAL CARDIOVASCUL 07/13/2019 APRIL BARRON PROFESSOR OF BIOCHEMISTRY Ot E78.5 HYPERLIPIDEMIA, UNSPECIFIED 07/13/2019 APRIL BARRON PROFESSOR OF BIOCHEMISTRY Ot I 10 ESSENTIAL (PRIMARY) HYPERTENSION 07/13/2019 APRIL BARRON PROFESSOR OF BIOCHEMISTRY Ot I25.10 ATHSCL HEART DISEASE OF [place] CORONARY 07/13/2019 APRIL BARRON PROFESSOR OF BIOCHEMISTRY Ot I77.9 DISORDER OF ARTERIES AND ARTERIOLES, UNS 07/13/2019 JUSTIN ARCEO PROFESSOR OF BIOCHEMISTRY Ot C83.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, LYMPH NOD 07/13/2019 ROXI DUNLAP Ot C83.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, LYMPH NOD 07/13/2019 ROXI DUNLAP Ot Z01.89 ENCOUNTER FOR OTHER SPECIFIED SPECIAL EX 07/13/2019 APRIL BARRON PROFESSOR OF BIOCHEMISTRY Ot E78.4 OTHER HYPERLIPIDEMIA 07/13/2019 APRIL BARRON PROFESSOR OF BIOCHEMISTRY Ot I 10 ESSENTIAL (PRIMARY) HYPERTENSION 07/13/2019 APRIL BARRON PROFESSOR OF BIOCHEMISTRY Ot I25.10 ATHSCL HEART DISEASE OF [place] CORONARY 07/13/2019 APRIL BARRON PROFESSOR OF BIOCHEMISTRY Ot I65.23 OCCLUSION AND STENOSIS OF BILATERAL [place] 07/13/2019 VICTOR M FERRARI FAC, ALI FACP CCDS Ot E78.4 OTHER HYPERLIPIDEMIA 07/13/2019 VICTOR M FERRARI FACC, ALI FACP CCDS Ot I10 ESSENTIAL (PRIMARY) HYPERTENSION 07/13/2019 VICTOR M FERRARI FACC, ALI FACP CCDS Ot I25.10 ATHSCL HEART DISEASE OF [place] CORONARY 07/13/2019 VICTOR M FERRARI FACC, ALI FACP CCDS Ot I65.23 OCCLUSION AND STENOSIS OF BILATERAL [place] 07/13/2019 VICTOR M FERRARI FACC, ALI FACP CCDS Ot K76.9 LIVER DISEASE, UNSPECIFIED 07/13/2019 NATASHA LEAHY MD Ot C83.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, LYMPH NOD 07/13/2019 NATASHA LEAHY MD Ot K44.9 DIAPHRAGMATIC HERNIA WITHOUT OBSTRUCTION 07/13/2019 NATASHA LEAHY MD Ot R59.0 LOCALIZED ENLARGED LYMPH NODES 07/13/2019 ROXI DUNLAP Ot M51.34 OTHER INTERVERTEBRAL DISC DEGENERATION, 07/13/2019 ROXI DUNLAP Ot Z85.72 PERSONAL HISTORY OF NON-HODGKIN LYMPHOMA 07/13/2019 ROXI DUNLAP Ot Z98.890 OTHER SPECIFIED POSTPROCEDURAL STATES 07/13/2019 ROXI DUNLAP Ot 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, LYMPH NODES OF HEA 07/13/2019 GERMÁN, ROXI Jay Ot K76.89 OTHER SPECIFIED DISEASES OF LIVER 07/13/2019 APRIL BARRON L PROFESSOR OF BIOCHEMISTRY Ot E78.4 OTHER HYPERLIPIDEMIA 07/13/2019 BEATRICE APRIL L PROFESSOR OF BIOCHEMISTRY Ot I25.10 ATHSCL HEART DISEASE OF [place] CORONARY 07/13/2019 JUSTIN ARCEO PROFESSOR OF BIOCHEMISTRY Ot C83.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, LYMPH NOD 07/13/2019 JUSTIN ARCEO S PROFESSOR OF BIOCHEMISTRY Ot K57.30 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 OR AB 07/13/2019 JUSTIN ARCEO S PROFESSOR OF BIOCHEMISTRY Ot R59.0 LOCALIZED ENLARGED LYMPH NODES 07/13/2019 APRIL BARRON L PROFESSOR OF BIOCHEMISTRY Ot E78.5 HYPERLIPIDEMIA, UNSPECIFIED 07/13/2019 BEATRICE APRIL L PROFESSOR OF BIOCHEMISTRY Ot I25.10 ATHSCL HEART DISEASE OF [place] CORONARY 07/13/2019 APRIL BARRON PROFESSOR OF BIOCHEMISTRY Ot E78.5 HYPERLIPIDEMIA, UNSPECIFIED 07/13/2019 BEATRICE APRIL L PROFESSOR OF BIOCHEMISTRY Ot I25.10 ATHSCL HEART DISEASE OF [place] CORONARY 07/13/2019 GERMÁNROXI Ot C83.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, LYMPH NOD 07/13/2019 APRIL BARRON PROFESSOR OF BIOCHEMISTRY Ot E78.5 HYPERLIPIDEMIA, UNSPECIFIED 07/13/2019 BEATRICE APRIL L PROFESSOR OF BIOCHEMISTRY Ot I25.10 ATHSCL HEART DISEASE OF [place] CORONARY 07/13/2019 ROXI DUNLAP N Ot C83.30 DIFFUSE LARGE B-CELL LYMPHOMA, UNSPECIFI 07/13/2019 ROXI DUNLAP Ot E78.5 HYPERLIPIDEMIA, UNSPECIFIED 07/13/2019 ROXI DUNLAP Ot I10 ESSENTIAL (PRIMARY) HYPERTENSION 07/13/2019 ROXI DUNLAP N Ot I25.10 ATHSCL HEART DISEASE OF [place] CORONARY 07/13/2019 ROXI DUNLAP Ot R59.0 LOCALIZED ENLARGED LYMPH NODES 07/13/2019 ROXI DUNLAP Ot R97.20 ELEVATED PROSTATE SPECIFIC ANTIGEN [PSA] 07/13/2019 ROXI DUNLAP Ot Z92.21 PERSONAL HISTORY OF ANTINEOPLASTIC CHEMO 07/14/2019 ROXI DUNLAP Ot C83.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, LYMPH NOD 07/30/2019 GERMÁN, BOBAN N Ot C83.30 DIFFUSE LARGE B-CELL LYMPHOMA, UNSPECIFI 07/30/2019 GERMÁN, BOBAN N Ot E78.5 HYPERLIPIDEMIA, UNSPECIFIED 07/30/2019 GERMÁN, BOBAN N Ot I10 ESSENTIAL (PRIMARY) HYPERTENSION 07/30/2019 GERMÁN, BOBAN N Ot I25.10 ATHSCL HEART DISEASE OF [place] CORONARY 07/30/2019 GERMÁN, BOBAN N Ot R59.0 LOCALIZED ENLARGED LYMPH NODES 07/30/2019 GERMÁN, BOBAN N Ot R97.20 ELEVATED PROSTATE SPECIFIC ANTIGEN [PSA] 07/30/2019 GERMÁN, BOBAN N Ot Z92.21 PERSONAL HISTORY OF ANTINEOPLASTIC CHEMO 08/03/2019 GERMÁN, BOBAN N Ot C83.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, LYMPH NOD 08/04/2019 GERMÁN, BOBAN N Ot C83.30 DIFFUSE LARGE B-CELL LYMPHOMA, UNSPECIFI 08/04/2019 GERMÁN, BOBAN N Ot E78.5 HYPERLIPIDEMIA, UNSPECIFIED 08/04/2019 GERMÁN, BOBAN N Ot I10 ESSENTIAL (PRIMARY) HYPERTENSION 08/04/2019 GERMÁN, BOBAN N Ot I25.10 ATHSCL HEART DISEASE OF [place] CORONARY 08/04/2019 GERMÁN, BOBAN N Ot R59.0 LOCALIZED ENLARGED LYMPH NODES 08/04/2019 GERMÁN, BOBAN N Ot R97.20 ELEVATED PROSTATE SPECIFIC ANTIGEN [PSA] 08/04/2019 GERMÁN, BOBAN N Ot Z92.21 PERSONAL HISTORY OF ANTINEOPLASTIC CHEMO 08/19/2019 GERMÁN, BOBAN N Ot C83.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, LYMPH NOD 08/23/2019 GERMÁN, BOBAN N Ot C83.30 DIFFUSE LARGE B-CELL LYMPHOMA, UNSPECIFI 08/23/2019 GERMÁN, BOBAN N Ot E78.5 HYPERLIPIDEMIA, UNSPECIFIED 08/23/2019 GERMÁN, BOBAN N Ot I10 ESSENTIAL (PRIMARY) HYPERTENSION 08/23/2019 GERMÁN, BOBAN N Ot I25.10 ATHSCL HEART DISEASE OF [place] CORONARY 08/23/2019 GERMÁN, BOBAN N Ot R59.0 LOCALIZED ENLARGED LYMPH NODES 08/23/2019 GERMÁN, BOBAN N Ot R97.20 ELEVATED PROSTATE SPECIFIC ANTIGEN [PSA] 08/23/2019 GERMÁN, BOBAN N Ot Z92.21 PERSONAL HISTORY OF ANTINEOPLASTIC CHEMO 10/11/2019 GERMÁN, BOBAN N Ot C83.30 DIFFUSE LARGE B-CELL LYMPHOMA, UNSPECIFI 10/11/2019 GERMÁN, BOBAN N Ot E78.5 HYPERLIPIDEMIA, UNSPECIFIED 10/11/2019 GERMÁN, BOBAN N Ot I10 ESSENTIAL (PRIMARY) HYPERTENSION 10/11/2019 GERMÁN, BOBAN N Ot I25.10 ATHSCL HEART DISEASE OF [place] CORONARY 10/11/2019 GERMÁN, BOBAN N Ot R59.0 LOCALIZED ENLARGED LYMPH NODES 10/11/2019 GERMÁN, BOBAN N Ot R97.20 ELEVATED PROSTATE SPECIFIC ANTIGEN [PSA] 10/11/2019 GERMÁN, BOBAN N Ot Z92.21 PERSONAL HISTORY OF ANTINEOPLASTIC CHEMO 10/12/2019 GERMÁN, BOBAN N Ot C83.30 DIFFUSE LARGE B-CELL LYMPHOMA, UNSPECIFI 10/12/2019 GERMÁN, BOBAN N Ot E78.5 HYPERLIPIDEMIA, UNSPECIFIED 10/12/2019 GERMÁN, BOBAN N Ot I10 ESSENTIAL (PRIMARY) HYPERTENSION 10/12/2019 GERMÁN, BOBAN N Ot I25.10 ATHSCL HEART DISEASE OF [place] CORONARY 10/12/2019 GERMÁN, BOBAN N Ot R59.0 LOCALIZED ENLARGED LYMPH NODES 10/12/2019 GERMÁN, BOBAN N Ot R97.20 ELEVATED PROSTATE SPECIFIC ANTIGEN [PSA] 10/12/2019 GERMÁN, BOBAN N Ot Z92.21 PERSONAL HISTORY OF ANTINEOPLASTIC CHEMO 11/17/2019 GERMÁN, BOBAN N Ot C83.30 DIFFUSE LARGE B-CELL LYMPHOMA, UNSPECIFI 11/17/2019 GERMÁN, BOBAN N Ot E78.5 HYPERLIPIDEMIA, UNSPECIFIED 11/17/2019 GERMÁN, BOBAN N Ot I10 ESSENTIAL (PRIMARY) HYPERTENSION 11/17/2019 GERMÁN, BOBAN N Ot I25.10 ATHSCL HEART DISEASE OF [place] CORONARY 11/17/2019 GERMÁN, BOBAN N Ot R59.0 LOCALIZED ENLARGED LYMPH NODES 11/17/2019 GERMÁN, BOBAN N Ot R97.20 ELEVATED PROSTATE SPECIFIC ANTIGEN [PSA] 11/17/2019 GERMÁN, BOBAN N Ot Z92.21 PERSONAL HISTORY OF ANTINEOPLASTIC CHEMO 11/24/2019 GERMÁN, BOBAN N Ot C83.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, LYMPH NOD Procedures Code Description Performed By Per formed On 45.43 ENDO SCOP DEST OF OTH LESION OR TISU OF [...] 5-14 Serum or plasma urea nitrogen measurement (mass/volume ) 13 mg/dL 7-18 Serum or plasma creatinine measurement (mass/volume) 0.77 mg/dL 0.60-1.30 Serum or plasma urea nitrogen/creatinine mass ratio 17 NRG Serum or plasma creatinine measurement w ith calculation of estimated glomerular filtration rate > NRG Serum or plasma glucose measurement (mass/volume) 105 mg/dL 70-105 Serum or plasma calcium measurement (mass/volume) 9.5 mg/dL 8.5-10.1 Serum or plasma total bilirubin measurement (mass/volu me) 0.6 mg/dL 0.1-1.0 Serum or plasma alkaline phosphatase mychal surement (enzymatic activity/volume) 71 U/L 40-136 Serum or plasma aspartate aminotransfera se measurement (enzymatic activity/volume) 21 U/L 5-34 Serum or plasma alanine aminotransferase measurement (enzymatic activity/volume) 36 U/L 0-55 Serum or plasma protein measurement (mass/volume) 6.5 g/dL 6.4-8.2 Serum or plasma albumin measurement (mass/volume) 4.3 g/dL 3.2-4.5 Lipid 1996 panel - 03/15/16 07:20 Serum or plasma triglyceride measurement (mass/volume) 155 mg/dL <150 Serum or plasma cholesterol measurement (mass/volume) 97 mg/dL < 200 Serum or plasma cholesterol in HDL measurement (mass/v olume) 34 mg/dL 40-60 Cholesterol in LDL [mass/volume] in serum or plasma by direct assay 37 mg/dL 1-129 Serum or plasma cholesterol in VLDL measurement (mass/ volume) 31 mg/dL 5-40 Methicillin resistant Staphylococcus aur eus (MRSA) screening culture - 08/15/16 11:42 Methicillin resistant Staphylococcus aureus (MRSA) scr eening culture NEG NRG Capillary blood glucose measurement by g lucometer (mass/volume) - 08/21/16 11:34 Capillary blood glucose measurement by glucometer (mas s/volume) 100 mg/dL 70-110 Complete blood count (CBC) with automate d white blood cell (WBC) differential - 08/24/16 21:55 Blood leukocytes automated count (number/volume) 7.1 10*3/uL 4.3-11.0 Blood erythrocytes automated count (number/volume) 4.95 10*6/uL 4.35-5.85 Venous blood hemoglobin measurement (mass/volume) 15.1 g/dL 13.3-17.7 Blood hematocrit (volume fraction) 44 % 40-54 Automated erythrocyte mean corpuscular volume 89 [ foz_us] 80-99 Automated erythrocyte mean corpuscular h emoglobin (mass per erythrocyte) 31 pg 25-34 Automated erythrocyte mean corpuscular h emoglobin concentration measurement (mass/volume) 34 g/dL 32-36 Automated erythrocyte distribution width ratio 12. 9 % 10.0- 14.5 Automated blood platelet count (count/volume) 263 10*3/uL [...] 10*3 1.0-4.0 Blood monocytes automated count (number/volume) 0. 7 10*3 0.0-1.0 Automated eosinophil count 0.6 10*3/uL 0 .0-0.3 Automated blood basophil count (count/volume) 0.0 10*3/uL 0.0-0.1 Whole blood basic metabolic panel - 07/29 03/13 21:55 Serum or plasma sodium measurement (moles/volume) 141 mmol/L 135-145 Serum or plasma potassium measurement (moles/volume) 4.2 mmol/L 3.6-5.0 Serum or plasma chloride measurement (moles/volume) 108 mmol/L 98-107 Carbon dioxide 22 mmol/L 21-32 Serum or plasma anion gap determination (moles/volume) 11 mmol/L 5-14 Serum or plasma urea nitrogen measurement (mass/volume ) 16 mg/dL 7-18 Serum or plasma creatinine measurement (mass/volume) 0.91 mg/dL 0.60-1.30 Serum or plasma urea nitrogen/creatinine mass ratio 18 NRG Serum or plasma creatinine measurement w ith calculation of estimated glomerular filtration rate > NRG Serum or plasma glucose measurement (mass/volume) 118 mg/dL 70-105 Serum or plasma calcium measurement (mass/volume) 10.0 mg/dL 8.5-10.1 Methicillin resistant Staphylococcus aur eus (MRSA) screening culture - 09/05/16 10:35 Methicillin resistant Staphylococcus aureus (MRSA) scr eening culture NEG NRG Capillary blood glucose measurement by g lucometer (mass/volume) - 09/05/16 10:43 Capillary blood glucose measurement by glucometer (mas s/volume) 109 mg/dL 70-110 Complete blood count (CBC) with automate d white blood cell (WBC) differential - 10/22/16 17:05 Blood leukocytes automated count (number/volume) 1.7 10*3/uL 4.3-11.0 Blood erythrocytes automated count (number/volume) 4.76 10*6/uL 4.35-5.85 Venous blood hemoglobin measurement (mass/volume) 14.3 g/dL 13.3-17.7 Blood hematocrit (volume fraction) 42 % 40-54 Automated erythrocyte mean corpuscular volume 87 [ foz_us] 80-99 Automated erythrocyte mean corpuscular h emoglobin (mass per erythrocyte) 30 pg 25-34 Automated erythrocyte mean corpuscular h emoglobin concentration measurement (mass/volume) 35 g/dL 32-36 Automated erythrocyte distribution width ratio 13. 5 % 10.0- 14.5 Automated blood platelet count (count/volume) 162 10*3/uL [...] 10*3 1.0-4.0 Blood monocytes automated count (number/volume) 0. 2 10*3 0.0-1.0 Automated eosinophil count 0.1 10*3/uL 0 .0-0.3 Automated blood basophil count (count/volume) 0.0 10*3/uL 0.0-0.1 PT panel in platelet poor plasma by coag ulation assay - 10/22/16 17:05 Prothrombin time (PT) in platelet poor plasma by coagu lation assay 15.3 s 12.2-14.7 INR in platelet poor plasma or blood by coagulation as say 1.2 0.8-1.4 Activated partial thromboplastin time (a PTT) in platelet poor plasma bycoagulation assay - 10/22/16 17:05 Activated partial thromboplastin time (a PTT) in platelet poor plasma bycoagulation assay 72 s 24-35 Blood lactic acid measurement (moles/vol ume) - 10/22/16 17:05 Blood lactic acid measurement [...] 5-14 Serum or plasma urea nitrogen measurement (mass/volume ) 10 mg/dL 7-18 Serum or plasma creatinine measurement (mass/volume) 0.82 mg/dL 0.60-1.30 Serum or plasma urea nitrogen/creatinine mass ratio 12 NRG Serum or plasma creatinine measurement w ith calculation of estimated glomerular filtration rate > NRG Serum or plasma glucose measurement (mass/volume) 135 mg/dL 70-105 Serum or plasma calcium measurement (mass/volume) 8.7 mg/dL 8.5-10.1 Serum or plasma total bilirubin measurement (mass/volu me) 0.5 mg/dL 0.1-1.0 Serum or plasma alkaline phosphatase mychal surement (enzymatic activity/volume) 40 U/L 40-136 Serum or plasma aspartate aminotransfera se measurement (enzymatic activity/volume) 13 U/L 5-34 Serum or plasma alanine aminotransferase measurement (enzymatic activity/volume) 20 U/L 0-55 Serum or plasma protein measurement (mass/volume) 5.6 g/dL 6.4-8.2 Serum or plasma albumin measurement (mass/volume) 3.5 g/dL 3.2-4.5 Bacterial blood culture - 10/22/16 17:05 Bacterial blood culture NG NRG Bacterial blood culture - 10/22/16 17:53 Bacterial blood culture NG NRG Complete urinalysis with reflex to cultu re - 10/22/16 22:06 Urine color determination REAL NRG Urine clarity determination VERY CLOUDY NRG Urine pH measurement by test strip 5 5-9 Specific gravity of urine by test strip 1.030 1.016-1.022 Urine protein assay by test strip, semi-quantitative 2+ NEGATIVE Urine glucose detection by automated test strip NE GATIVE NEGATIVE Erythrocytes detection in urine sediment by light micr oscopy 1+ NEGATIVE Urine ketones detection by automated test strip 1+ NEGATIVE Urine nitrite detection by test strip NEGATIVE NEGATIVE Urine total bilirubin detection by test strip 1+ NEGATIVE Urine urobilinogen measurement by automated test strip (mass/volume) NORMAL NORMAL Urine leukocyte esterase detection by dipstick 1+ NEGATIVE Automated urine sediment erythrocyte cou nt by microscopy (number/high power field) RARE NRG Automated urine sediment leukocyte count by microscopy (number/high power field) [HPF] NRG Bacteria detection in urine sediment by light microsco py NEGATIVE NRG Crystals detection in urine sediment by light microsco py PRESENT NRG Casts detection in urine sediment by light microscopy NONE NRG Mucus detection in urine sediment by light microscopy LARGE NRG Complete urinalysis with reflex to culture NO NRG Calcium oxalate crystals detection in ur ine sediment by light microscopy LARGE NRG Complete blood count (CBC) with automate d white blood cell (WBC) differential - 10/23/16 05:15 Blood leukocytes automated count (number/volume) 1.9 10*3/uL 4.3-11.0 Blood erythrocytes automated count (number/volume) 4.21 10*6/uL 4.35-5.85 Venous blood hemoglobin measurement (mass/volume) 12.9 g/dL 13.3-17.7 Blood hematocrit (volume fraction) 37 % 40-54 Automated erythrocyte mean corpuscular volume 88 [ foz_us] 80-99 Automated erythrocyte mean corpuscular h emoglobin (mass per erythrocyte) 31 pg 25-34 Automated erythrocyte mean corpuscular h emoglobin concentration measurement (mass/volume) 35 g/dL 32-36 Automated erythrocyte distribution width ratio 13. 4 % 10.0- 14.5 Automated blood platelet count (count/volume) 140 10*3/uL [...] 10*3 1.0-4.0 Blood monocytes automated count (number/volume) 0. 3 10*3 0.0-1.0 Automated eosinophil count 0.1 10*3/uL 0 .0-0.3 Automated blood basophil count (count/volume) 0.0 10*3/uL 0.0-0.1 Comprehensive metabolic panel - 10/23/16 05:15 Serum or plasma sodium measurement (moles/volume) 139 mmol/L 135-145 Serum or plasma potassium measurement (moles/volume) 3.8 mmol/L 3.6-5.0 Serum or plasma chloride measurement (moles/volume) 111 mmol/L 98-107 Carbon dioxide 21 mmol/L 21-32 Serum or plasma anion gap determination (moles/volume) 7 mmol/L 5-14 Serum or plasma urea nitrogen measurement (mass/volume ) 9 mg/dL 7-18 Serum or plasma creatinine measurement (mass/volume) 0.70 mg/dL 0.60-1.30 Serum or plasma urea nitrogen/creatinine mass ratio 13 NRG Serum or plasma creatinine measurement w ith calculation of estimated glomerular filtration rate > NRG Serum or plasma glucose measurement (mass/volume) 124 mg/dL 70-105 Serum or plasma calcium measurement (mass/volume) 8.2 mg/dL 8.5-10.1 Serum or plasma total bilirubin measurement (mass/volu me) 0.4 mg/dL 0.1-1.0 Serum or plasma alkaline phosphatase mychal surement (enzymatic activity/volume) 34 U/L 40-136 Serum or plasma aspartate aminotransfera se measurement (enzymatic activity/volume) 13 U/L 5-34 Serum or plasma alanine aminotransferase measurement (enzymatic activity/volume) 15 U/L 0-55 Serum or plasma protein measurement (mass/volume) 4.9 g/dL 6.4-8.2 Serum or plasma albumin measurement (mass/volume) 3.0 g/dL 3.2-4.5 C DIFFICILE AG + TOXIN A/B. - 10/23/16 1 5:20 RESULTS NEGATIVE FOR ANTIGEN AND TOXIN A/B NRG Complete blood count (CBC) with automate d white blood cell (WBC) differential - 10/24/16 06:45 Blood leukocytes automated count (number/volume) 7.4 10*3/uL 4.3-11.0 Blood erythrocytes automated count (number/volume) 4.37 10*6/uL 4.35-5.85 Venous blood hemoglobin measurement (mass/volume) 13.2 g/dL 13.3-17.7 Blood hematocrit (volume fraction) 38 % 40-54 Automated erythrocyte mean corpuscular volume 87 [ foz_us] 80-99 Automated erythrocyte mean corpuscular h emoglobin (mass per erythrocyte) 30 pg 25-34 Automated erythrocyte mean corpuscular h emoglobin concentration measurement (mass/volume) 35 g/dL 32-36 Automated erythrocyte distribution width ratio 13. 3 % 10.0- 14.5 Automated blood platelet count (count/volume) 155 10*3/uL [...] 10*3 1.0-4.0 Blood monocytes automated count (number/volume) 0. 9 10*3 0.0-1.0 Automated eosinophil count 0.1 10*3/uL 0 .0-0.3 Automated blood basophil count (count/volume) 0.0 10*3/uL 0.0-0.1 Whole blood basic metabolic panel - 09/27 06:45 Serum or plasma sodium measurement (moles/volume) 139 mmol/L 135-145 Serum or plasma potassium measurement (moles/volume) 3.5 mmol/L 3.6-5.0 Serum or plasma chloride measurement (moles/volume) 110 mmol/L 98-107 Carbon dioxide 20 mmol/L 21-32 Serum or plasma anion gap determination (moles/volume) 9 mmol/L 5-14 Serum or plasma urea nitrogen measurement (mass/volume ) 5 mg/dL 7-18 Serum or plasma creatinine measurement (mass/volume) 0.70 mg/dL 0.60-1.30 Serum or plasma urea nitrogen/creatinine mass ratio 7 NRG Serum or plasma creatinine measurement w ith calculation of estimated glomerular filtration rate > NRG Serum or plasma glucose measurement (mass/volume) 98 mg/dL 70-105 Serum or plasma calcium measurement (mass/volume) 8.7 mg/dL 8.5-10.1 Blood manual differential performed dete ction - 10/24/16 06:45 Blood monocytes/100 leukocytes 12 % NRG Manual blood segmented neutrophils/100 leukocytes 39 % NRG Blood band neutrophils/100 leukocytes 36 % NRG Manual blood lymphocytes/100 leukocytes 10 % NRG Manual eosinophils/100 leukocytes in nose 2 % NRG Manual blood basophils/100 leukocytes 1 % NRG Blood erythrocyte morphology finding identification NORMAL NRG Automated blood complete blood count (he mogram) panel - 05/20/17 07:05 Blood leukocytes automated count (number/volume) 5.3 10*3/uL 4.3-11.0 Blood erythrocytes automated count (number/volume) 4.74 10*6/uL 4.35-5.85 Venous blood hemoglobin measurement (mass/volume) 14.3 g/dL 13.3-17.7 Blood hematocrit (volume fraction) 41 % 40-54 Automated erythrocyte mean corpuscular volume 87 [ foz_us] 80-99 Automated erythrocyte mean corpuscular h emoglobin (mass per erythrocyte) 30 pg 25-34 Automated erythrocyte mean corpuscular h emoglobin concentration measurement (mass/volume) 35 g/dL 32-36 Automated erythrocyte distribution width ratio 12. 5 % 10.0- 14.5 Automated blood platelet count (count/volume) 250 10*3/uL 130-400 Automated blood platelet mean volume measurement 9.8 [foz_us] 7.4-10.4 PT panel in platelet poor plasma by coag ulation assay - 05/20/17 07:05 Prothrombin time (PT) in platelet poor plasma by coagu lation assay 13.9 s 12.2-14.7 INR in platelet poor plasma or blood by coagulation as say 1.1 0.8-1.4 Activated partial thromboplastin time (a PTT) in platelet poor plasma bycoagulation assay - 05/20/17 07:05 Activated partial thromboplastin time (a PTT) in platelet poor plasma bycoagulation assay 29 s 24-35 Comprehensive metabolic panel - 05/20/17 07:05 Serum or plasma sodium measurement (moles/volume) 140 mmol/L 135-145 Serum or plasma potassium measurement (moles/volume) 3.6 mmol/L 3.6-5.0 Serum or plasma chloride measurement (moles/volume) 108 mmol/L 98-107 Carbon dioxide 23 mmol/L 21-32 Serum or plasma anion gap determination (moles/volume) 9 mmol/L 5-14 Serum or plasma urea nitrogen measurement (mass/volume ) 13 mg/dL 7-18 Serum or plasma creatinine measurement (mass/volume) 0.81 mg/dL 0.60-1.30 Serum or plasma urea nitrogen/creatinine mass ratio 16 NRG Serum or plasma creatinine measurement w ith calculation of estimated glomerular filtration rate > NRG Serum or plasma glucose measurement (mass/volume) 134 mg/dL 70-105 Serum or plasma calcium measurement (mass/volume) 9.7 mg/dL 8.5-10.1 Serum or plasma total bilirubin measurement (mass/volu me) 0.4 mg/dL 0.1-1.0 Serum or plasma alkaline phosphatase mychal surement (enzymatic activity/volume) 71 U/L 40-136 Serum or plasma aspartate aminotransfera se measurement (enzymatic activity/volume) 21 U/L 5-34 Serum or plasma alanine aminotransferase measurement (enzymatic activity/volume) 36 U/L 0-55 Serum or plasma protein measurement (mass/volume) 6.4 g/dL 6.4-8.2 Serum or plasma albumin measurement (mass/volume) 4.0 g/dL 3.2-4.5 Lipid 1996 panel - 05/20/17 07:05 Serum or plasma triglyceride measurement (mass/volume) 206 mg/dL <150 Serum or plasma cholesterol measurement (mass/volume) 170 mg/dL < 200 Serum or plasma cholesterol in HDL measurement (mass/v olume) 42 mg/dL 40-60 Cholesterol in LDL [mass/volume] in serum or plasma by direct assay 91 mg/dL 1-129 Serum or plasma cholesterol in VLDL measurement (mass/ volume) 41 mg/dL 5-40 Methicillin resistant Staphylococcus aur eus (MRSA) screening culture - 05/20/17 07:05 Methicillin resistant Staphylococcus aureus (MRSA) scr eening culture NEG NRG Capillary blood glucose measurement by g lucometer (mass/volume) - 09/01/17 09:57 Capillary blood glucose measurement by glucometer (mas s/volume) 111 mg/dL 70-110 Methicillin resistant Staphylococcus aur eus (MRSA) screening culture - 08/07/18 08:15 Methicillin resistant Staphylococcus aureus (MRSA) scr eening culture NEG NRG Capillary blood glucose measurement by g lucometer (mass/volume) - 08/07/18 08:16 Capillary blood glucose measurement by glucometer (mas s/volume) 137 mg/dL 70-110 Complete blood count (CBC) with automate d white blood cell (WBC) differential - 02/01/19 09:39 Blood leukocytes automated count (number/volume) 5.6 10*3/uL 4.3-11.0 Blood erythrocytes automated count (number/volume) 4.95 10*6/uL 4.35-5.85 Venous blood hemoglobin measurement (mass/volume) 15.3 g/dL 13.3-17.7 Blood hematocrit (volume fraction) 45 % 40-54 Automated erythrocyte mean corpuscular volume 90 [ foz_us] 80-99 Automated erythrocyte mean corpuscular h emoglobin (mass per erythrocyte) 31 pg 25-34 Automated erythrocyte mean corpuscular h emoglobin concentration measurement (mass/volume) 34 g/dL 32-36 Automated erythrocyte distribution width ratio 13. 0 % 10.0- 14.5 Automated blood platelet count (count/volume) 274 10*3/uL 130-400 Automated blood platelet mean volume measurement 9.9 [foz_us] 7.4-10.4 Automated blood neutrophils/100 leukocytes 70 % 42-75 Automated blood lymphocytes/100 leukocytes 18 % 12-44 Blood monocytes/100 leukocytes 9 % 0-12 Automated blood eosinophils/100 leukocytes 2 % 0-10 Automated blood basophils/100 leukocytes 0 % 0-10 Blood neutrophils automated count (number/volume) 4.0 10*3 1.8-7.8 Blood lymphocytes automated count (number/volume) 1.0 10*3 1.0-4.0 Blood monocytes automated count (number/volume) 0. 5 10*3 0.0-1.0 Automated eosinophil count 0.1 10*3/uL 0 .0-0.3 Automated blood basophil count (count/volume) 0.0 10*3/uL 0.0-0.1 Comprehensive metabolic panel - 02/01/19 09:39 Serum or plasma sodium measurement (moles/volume) 142 mmol/L 135-145 Serum or plasma potassium measurement (moles/volume) 4.1 mmol/L 3.6-5.0 Serum or plasma chloride measurement (moles/volume) 108 mmol/L 98-107 Carbon dioxide 25 mmol/L 21-32 Serum or plasma anion gap determination (moles/volume) 9 mmol/L 5-14 Serum or plasma urea nitrogen measurement (mass/volume ) 10 mg/dL 7-18 Serum or plasma creatinine measurement (mass/volume) 0.87 mg/dL 0.60-1.30 Serum or plasma urea nitrogen/creatinine mass ratio 11 NRG Serum or plasma creatinine measurement w ith calculation of estimated glomerular filtration rate > NRG Serum or plasma glucose measurement (mass/volume) 141 mg/dL 70-105 Serum or plasma calcium measurement (mass/volume) 9.5 mg/dL 8.5-10.1 Serum or plasma total bilirubin measurement (mass/volu me) 0.4 mg/dL 0.1-1.0 Serum or plasma alkaline phosphatase mychal surement (enzymatic activity/volume) 59 U/L 40-136 Serum or plasma aspartate aminotransfera se measurement (enzymatic activity/volume) 21 U/L 5-34 Serum or plasma alanine aminotransferase measurement (enzymatic activity/volume) 28 U/L 0-55 Serum or plasma protein measurement (mass/volume) 7.0 g/dL 6.4-8.2 Serum or plasma albumin measurement (mass/volume) 4.4 g/dL 3.2-4.5 CALCIUM CORRECTED 9.2 mg/dL 8.5-10.1 Serum ragweed IgE antibody assay - 02/01 09:39 Serum ragweed IgE antibody assay 167 U/L 125-220 Encounters ACCT No. Visit Date/Time Discharge Status Pt. Type Provider Facility Loc./Unit Complaint [id number] 12/06/2019 08:55:00 23:59:59 CLS Outpatient SIMIN VOGEL DO [facility] PREOP LEFT AXILLARY EXCISION [id number] 11/24/2019 14:29:00 23:59:59 CLS Outpatient ROXI DUNLAP V [facility] ONC [id number] 11/23/2019 07:42:00 23:59:59 CLS Outpatient ROXI DUNLAP V [facility] RAD DIFFUSE LARGE B CELL LY MPHOMA [id number] 08/09/2019 14:11:00 00:01:00 DIS Outpatient ROXI DUNLAP V [facility] ONC [id number] 07/13/2019 13:38:00 23:59:59 CLS Outpatient ROXI DUNLAP V [facility] RAD ENLARGED LYMPH NODES IN ARMPIT [id number] 05/06/2019 09:12:00 019 10:41:00 DIS Outpatient ROXI DUNLAP V [facility] ONC [id number] 07/05/2019 12:23:00 23:59:59 CLS Preadmit LESLIE FERRARI, VENKAT [place] [facility] CARD PROSTATE CANCER [id number] 05/11/2019 07:50:00 23:59:59 CLS Outpatient APRIL BARRON [facility] LAB I25.10 [id number] 05/03/2019 09:12:00 23:59:59 CLS Outpatient ROXI DUNLAP V [facility] RAD DIFFUSE LARGE B CELL LY MPHOMA [id number] 02/08/2019 13:49:00 00:01:00 DIS Outpatient ROXI DUNLAP V [facility] ONC [id number] 11/11/2018 07:46:00 23:59:59 CLS Outpatient APRIL BARRON [facility] LAB I25.10 E78.2 [id number] 10/26/2018 09:21:00 00:01:00 DIS Outpatient ROXI DUNLAP V [facility] ONC [id number] 08/07/2018 07:51:00 10:35:00 DIS Outpatient RICHELLE FERRARI, BEAN Love [facility] SDC NON [place]GKINS LYMPHOMA [id number] 08/03/2018 06:17:00 13:35:00 DIS Outpatient BEAN PEOPLES MD [facility] PREOP PORT REMOVAL [id number] 07/29/2018 09:06:00 12:25:00 DIS Outpatient ARMOND FERRARI, NATASHA [place] [facility] REHAB BACK PAIN;THORACIC DDD [id number] 07/24/2018 10:57:00 00:01:00 DIS Outpatient ROXI DUNLAP V [facility] ONC [id number] 07/24/2018 10:48:00 23:59:59 CLS Outpatient JUSTIN ARCEOP [facility] RAD DIFFUSE LARGE B CELL LYMPHOMA [id number] 05/05/2018 08:08:00 018 23:59:59 CLS Outpatient APRIL BARRON [facility] LAB E78.4 [id number] 03/19/2018 09:06:00 08/31/2 018 00:01:00 DIS Outpatient ROXI DUNLAP V [facility] ONC [id number] 02/12/2018 08:46:00 018 09:04:00 DIS Outpatient ROXI DUNLAP V [facility] ONC [id number] 02/05/2018 08:51:00 018 23:59:59 CLS Outpatient ROXI DUNLAP V [facility] RAD Z01.89 RESTAGE NEOPLASM [id number] 11/13/2017 08:42:00 018 00:01:00 DIS Outpatient ROXI DUNLAP V [facility] ONC [id number] 11/18/2017 08:03:00 018 23:59:59 CLS Outpatient APRIL BARRON [facility] LAB I25.10 E78.4 [id number] 11/15/2017 08:33:00 018 23:59:59 CLS Outpatient ROXI DUNLAP V [facility] RAD M54.9 MID BACK PAIN [id number] 09/01/2017 09:34:00 018 12:15:00 DIS Outpatient BEAN PEOPLES MD [facility] ENDO EPIGASTRIC PAIN/GERD [id number] 08/26/2017 05:42:00 018 12:53:00 DIS Outpatient BEAN PEOPLES MD [facility] PREOP EGD [id number] 08/13/2017 08:54:00 018 15:47:00 DIS Outpatient NATASHA LEAHY MD, V [facility] ONC [id number] 08/13/2017 10:01:00 018 23:59:59 CLS Outpatient NATASHA LEAHY MD, V [facility] RAD C83.38 DIFFUSE LARGE B CELL LYMPHOMA [id number] 05/20/2017 06:46:00 017 11:30:00 DIS Outpatient VICTOR M FERRARI FACC, ADONAY ANDRES CC DS [facility] CATH [facility]BD [facility] ORT,CAD [id number] 04/28/2017 07:42:00 017 23:59:59 CLS Outpatient VICTOR M FERRARI FACADONAY Linder FACP CC DS [facility] RAD R10.13 [id number] 04/10/2017 09:06:00 017 00:01:00 DIS Outpatient ROXI DUNLAP V [facility] ONC [id number] 03/17/2017 07:35:00 017 23:59:59 CLS Outpatient APRIL BARRON [facility] LAB I24.10,I65.23,E 78.4,I10 [id number] 02/27/2017 09:51:00 017 00:01:00 DIS Outpatient ROXI DUNLAP V [facility] ONC [id number] 02/24/2017 11:00:00 017 23:59:59 CLS Outpatient ROXI DUNLAP V [facility] RAD DIFFUSE LARGE B CELL LY MPHOMA [id number] 12/04/2016 09:37:00 017 00:01:00 DIS Outpatient ROXI DUNLAP V [facility] ONC [id number] 11/26/2016 08:35:00 017 23:59:59 CLS Outpatient JUSTIN ARCEO PROFESSOR OF BIOCHEMISTRY [facility] RAD DIFFUSE LARGE B CELL LYMPHOMA [id number] 10/22/2016 18:26:00 017 14:32:00 DIS Inpatient GELLENDER DOLARRY A [facility] 4TH NEUTROPENIC FEV ER,TOOTH ABSCESS,NON [place]INS LYMPH [id number] 09/18/2016 08:59:00 017 23:59:59 CLS Outpatient APRIL BARRON [facility] LAB [id number] 09/06/2016 07:41:00 017 23:59:59 CLS Outpatient ROXI DUNLAP V [facility] CARD Z01.810 [id number] 09/05/2016 10:25:00 017 15:30:00 DIS Out[facility] [id number] 09/04/2016 05:51:00 017 13:58:00 DIS Outpatient BEAN PEOPLES MD [facility] PREOP LYMPHOMA [id number] 09/03/2016 08:52:00 017 23:59:59 CLS Outpatient GELLENLARRY HENDERSON DO [facility] RAD LYMPHOMA [id number] 08/24/2016 21:25:00 017 22:58:00 DIS Emergency OLGA LIDIA GARCIA APRN [facility] ER L LEG SWELLING [id number] 08/21/2016 11:22:00 017 16:03:00 DIS Outpatient BEAN PEOPLES MD [facility] SDC LYMPHADENOTATHY [id number] 08/15/2016 11:29:00 017 11:52:00 DIS Outpatient BEAN PEOPLES MD [facility] PREOP LYMPHADENOTATHY [id number] 08/13/2016 07:05:00 017 23:59:59 CLS Outpatient LARRY KUO DO [facility] CARD SCLEROTIC,LESIO N ON T4 AND T2 [id number] 08/12/2016 13:08:00 017 23:59:59 CLS Outpatient LARRY KUO DO [facility] RAD RIGHT SIDE OF N NOLBERTO SWOLLEN [id number] 07/18/2016 08:14:00 016 23:59:59 CLS Outpatient LARRY KUO DO [facility] RAD COMPLICATED CYS TIC BESIUM [id number] 07/11/2016 10:39:00 016 23:59:59 CLS Outpatient LARRY KUO DO [facility] RAD CYST IN NECK [id number] 07/01/2016 11:52:00 016 23:59:59 CLS Outpatient LARRY KUO DO [facility] RAD PAIN IN RIGHT W RIST [id number] 05/07/2016 06:59:00 016 23:59:59 CLS Outpatient VICTOR M FERRARI FACC, ADONAY ANDRES CC DS [facility] CARD CAD,HLP,HTN ,CAROTID ARTERIAL DISEASE [id number] 03/15/2016 07:14:00 016 23:59:59 CLS Outpatient BAIMA, APRIL L PROFESSOR OF BIOCHEMISTRY [facility] LAB CAD,HYPERLIPIDE DEEJAY [id number] 09/15/2015 07:14:00 016 23:59:59 CLS Outpatient BAIMA, APRIL L PROFESSOR OF BIOCHEMISTRY [facility] LAB CAD,HLP [id number] 06/15/2015 11:36:00 015 23:59:59 CLS Outpatient VENKAT NELSON MD [facility] CARD PROSTATE CA [id number] 03/17/2015 07:07:00 015 23:59:59 CLS Outpatient BAIMA, APRIL L PROFESSOR OF BIOCHEMISTRY [facility] LAB HYPERLIPIDEMIA [id number] 09/01/2014 07:04:00 015 23:59:59 CLS Outpatient BAIMA, APRIL L PROFESSOR OF BIOCHEMISTRY [facility] LAB CAD,HLP [id number] 05/17/2014 09:12:00 014 23:59:59 CLS Outpatient LARRY KUO DO [facility] RAD THYROID NODULE RT SIDE [id number] 03/11/2014 07:01:00 014 23:59:59 CLS Outpatient BAIMA, APRIL L PROFESSOR OF BIOCHEMISTRY [facility] LAB CAD,CAROTID ART ERIAL DISEASE,HYPERLIPIDEMIA [id number] 08/02/2013 07:11:00 014 23:59:59 CLS Outpatient BAIMA, APRIL L PROFESSOR OF BIOCHEMISTRY [facility] LAB CAD,HYPERLIPIDE DEEJAY [id number] 04/13/2013 07:43:00 013 23:59:59 CLS Outpatient APRIL BARRON SHY [facility] LAB HYPERLIPIDEMIA, STATIN TRX [id number] 03/05/2013 07:09:00 013 23:59:59 CLS Outpatient APRIL BARRON SHY [facility] LAB CAD,HYPERTENSION,HYPERLIPIDEMIA,STATIN [place] [id number] 12/31/2012 07:12:00 013 23:59:59 CLS Outpatient VICTOR M FERRARI FACC, ADONAY ANDRES CC DS [facility] LAB CAD,STATIN TX,HYPERLIPIDEMIA [id number] 12/10/2019 08:00:00 P EN Preadmit SIMIN VOGEL DO [facility] SDC LEFT AXILLARY NODE [id number] 03/17/2015 07:07:00 Document Registration [id number] 03/17/2015 07:07:00 Document Registration [id number] 03/17/2015 07:07:00 Document Registration [id number] 03/17/2015 07:07:00 Document Registration [id number] 03/17/2015 07:07:00 Document Registration [id number] 03/17/2015 07:07:00 Document Registration [id number] 03/17/2015 07:07:00 Document Registration [id number] 03/17/2015 07:07:00 Document Registration [id number] 10/26/2012 07:43:00 Document Registration [id number] 10/05/2012 10:15:00 Document Registration [id number] 06/23/2012 11:38:00 Document Registration [id number] 06/04/2012 13:53:00 Document Registration [id number] 05/28/2012 10:32:00 Document Registration [id number] 05/25/2012 06:56:00 Document Registration [id number] 05/22/2012 08:15:00 Document Registration [id number] 04/16/2012 07:26:00 Document Registration [id number] 01/07/2011 07:33:00 Document Registration [id number] 12/06/2010 07:35:00 Document Registration [id number] 10/08/2010 07:50:00 Document Registration [id number] 10/08/2010 07:49:00 Document Registration [id number] 08/30/2010 07:43:00 Document Registration [id number] 08/02/2010 08:11:00 Document Registration [id number] 07/06/2010 12:09:00 Document Registration [id number] 04/12/2010 08:08:00 Document Registration [id number] 04/04/2010 16:27:00 Document Registration [id number] 03/26/2010 09:52:00 Document Registration [id number] 03/21/2010 15:49:00 Document Registration [id number] 12/12/2009 13:34:00 Document Registration
--- NOTE | 2019-12-10 10:56 | Diagnostic Imaging Report ---
INDICATION: Left axillary lymphadenopathy. Patient does have history of lymphoma. Patient presents for ultrasound-guided biopsy. FINDINGS: Patient was brought to the procedure room, placed on the table in the supine position. Ultrasound imaging of the left axilla was performed to evaluate appropriate entry site. The left axilla was prepped and draped in the usual sterile fashion. A small amount of 1% lidocaine was utilized for local anesthesia. Multiple core biopsies were made into an enlarged lymph node in the left axilla utilizing a 14-gauge Achieve needle. Needle was withdrawn and hemostasis was obtained. Patient tolerated the procedure well and left the department in stable condition. IMPRESSION: Ultrasound-guided core biopsy of enlarged left axillary lymph node. Pathology results are currently pending. Dictated by: Dictated on workstation # [id number]
== END ==
LOC: SDC 08:00
PROVIDERS: ATTEND Surgery
DX: R59.0 Localized enlarged lymph nodes (principal); Z85.72 Personal history of non-Hodgkin lymphomas
CPT/HCPCS: 88184; 88185

== ENCOUNTER 2019-12-17 09:22 | Outpatient (RCR) | payer MEDICARE, OTHER ==
[~2019-12-17] VITALS: Ht 172.7 cm; Wt 79.5 kg
[~2019-12-17 09:22] MED LIST changes: -LIDOCAINE 1% INJ 20 ML 20 ML VIAL INJ ONE; -LIDOCAINE 1% INJ 20 ML 20 ML VIAL ONE
== END 2019-12-17 14:52 | disposition home or self-care (01) ==
LOC: PREOP 09:22
PROVIDERS: ATTEND Surgery
DX: Z01.818 Encounter for other preprocedural examination (principal); Z11.59 Encounter for screening for other viral diseases
CPT/HCPCS: 87635

== ENCOUNTER 2019-12-23 10:13 | Day surgery (SDC) | payer MEDICARE, OTHER ==
[2019-12-23] VITALS (8 sets, daily range): BP systolic 85–146; BP diastolic 41–83
[~2019-12-23] VITALS: Ht 172.7 cm; Wt 79.5 kg
[2019-12-23] MEDS ORDERED: LACTATED RINGERS 1,000 ML IV PRN (10:20)
[2019-12-23] MEDS ORDERED: LIDOCAINE/EPI 1%-1:100,000 (XYLOCAINE) 20ML ONE (10:23)
[2019-12-23] MEDS ORDERED: 0.9% SODIUM CHLORIDE PF INJ 20 ML VIAL ONE (10:23)
[2019-12-23] MEDS ORDERED: HEParin (CENTRAL IV FLUSH) 500 UNIT/5 ML SYR ONE (10:23)
[2019-12-23] MEDS ORDERED: ceFAZolin 2 GM IV Premixed 50 ML IV ONE (10:30)
[2019-12-23] MEDS ORDERED: PROPOFOL INJECTION 50 ML IV ONE (10:37)
[2019-12-23] MEDS ORDERED: LIDOCAINE PF 2% 5 ML (XYLOCAINE) VIAL ONE (10:37)
[2019-12-23] MEDS ORDERED: MIDAZOLAM 2 MG/2 ML (VERSED) VIAL ONE (10:38)
[2019-12-23] MEDS ORDERED: fentaNYL INJECTION 100 MCG/2 ML AMP ONE (10:38)
[2019-12-23] MEDS ORDERED: ceFAZolin 2 GM IV Premixed 50 ML ONE (10:41)
--- NOTE | 2019-12-23 10:50 | Progress Note-Pre Operative ---
Pre-Operative Progress Note H&P Reviewed The H&P was reviewed, patient examined and no changes noted. Date Seen by Provider: December 23, 2019 Time Seen by Provider: 10:49 Date H&P Reviewed: December 23, 2019 Time H&P Reviewed: 10:50 Pre-Operative Diagnosis: lymphoma SIMIN VOGEL DO December 23, 2019 10:50
[2019-12-23] MEDS ORDERED: CATHETER FLUSH 10 ML SYR IV PRN (11:00)
--- OUTSIDE RECORDS SUMMARY | 2019-12-23 11:13 | XMS REPORT | Continuity of Care Document ---
Author Organization Unknown Address Unknown Phone Unavailable Allergies Active Description Code Type Severity Reaction Onset Reported/Identified Relationship to Patient Clinical Status Yes sulfamethoxazole [id number] Drug Allergy Unknown N/A 10/07/2008 Yes trimethoprim [id number] Drug Allergy Unknown N/A 10/07/2008 Medications There is no data. 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 ROXI DUNLAP Ot Z79.899 OTHER INTERMEDIATE (CURRENT) DRUG THERAPY ROXI DUNLAP Ot Z87.891 PERSONAL HISTORY OF NICOTINE DEPENDENCE ROXI DUNLAP Ot Z95.5 PRESENCE OF CORONARY ANGIOPLASTY IMPLANT 06/26/1040 ROXI DUNLAP Ot C83.30 DIFFUSE LARGE B-CELL LYMPHOMA, UNSPECIFI 06/26/1040 ROXI DUNLAP Ot E78.5 HYPERLIPIDEMIA, UNSPECIFIED 06/26/1040 ROXI DUNLAP N Ot I10 ESSENTIAL (PRIMARY) HYPERTENSION 06/26/1040 ROXI DUNLAP N Ot I25.10 ATHSCL HEART DISEASE OF [place] CORONARY 06/26/1040 ROXI DUNLAP Ot R59.0 LOCALIZED ENLARGED LYMPH NODES 06/26/1040 ROXI DUNLAP Ot R97.20 ELEVATED PROSTATE SPECIFIC ANTIGEN [PSA] 06/26/1040 ROXI DUNLAP Ot Z92.21 PERSONAL HISTORY OF [...] ANTINEOPLASTIC CHEMO 06/26/1224 NATASHA LEAHY MD, Ot Z98.1 ARTHRODESIS STATUS 06/26/1451 LOWELL SIMIN CARTER Ot Z01.818 ENCOUNTER FOR OTHER PREPROCEDURAL EXAMIN 06/26/1451 SIMIN VOGEL DO Ot Z11. 59 ENCOUNTER FOR SCREENING FOR OTHER VIRAL 06/26/1546 NATASHA LEAHY MD, Ot C83.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, LYMPH NOD 06/26/1546 NATASHA LEAHY MD, Ot 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 06/26/1546 NATASHA LEAHY MD, Ot E11.9 TYPE 2 DIABETES MELLITUS WITHOUT COMPLIC 06/26/1546 NATASHA LEAHY MD, Ot E78.5 HYPERLIPIDEMIA, UNSPECIFIED 06/26/1546 NATASHA LEAHY MD Ot I10 ESSENTIAL (PRIMARY) HYPERTENSION 06/26/1546 NATASHA LEAHY MD, Ot I25.10 ATHSCL HEART DISEASE OF [place] CORONARY 06/26/1546 NATASHA LEAHY MD, Ot T45.1X5 A ADVERSE EFFECT OF ANTINEOPLASTIC AND IMM 06/26/1546 NATASHA LEAHY MD Ot Z79.84 INTERMEDIATE (CURRENT) USE OF ORAL HYPOGLYC 06/26/1546 NATASHA LEAHY MD Ot Z79.899 OTHER SOFTWARE SALES EXECUTIVE (CURRENT) DRUG THERAPY 06/26/1546 NATASHA LEAHY MD, Ot Z87.891 PERSONAL HISTORY OF NICOTINE DEPENDENCE 06/26/1546 NATASHA LEAHY MD Ot Z95.5 PRESENCE OF CORONARY ANGIOPLASTY IMPLANT 06/26/1599 SIMIN VOGEL DO Ot Z01.818 ENCOUNTER FOR OTHER PREPROCEDURAL EXAMIN 04/07/2010 Ot 250.00 04/07/2010 Ot 272.4 04/07/2010 [...] 11/28/2010 Ot 414.01 COR ONARY ATHEROSCLEROSIS OF [place] CORON 11/28/2010 Ot 415.19 OTH PULMON EMBOLISM/INFARCT 05/25/2012 Ot 211.4 RE GN NEOPL RECTUM/ANUS 05/25/2012 Ot 250.00 DOUG B DRISS WO COMPL, TYPE II OR UNSPEC TY 05/25/2012 Ot 272.0 PURE HYPERCHOLESTEROLEM 05/25/2012 Ot 401.9 HYPE RTENSION NOS 05/25/2012 Ot 414.01 COR ONARY ATHEROSCLEROSIS OF [place] CORON 05/25/2012 Ot 562.10 DIV ERTICULOSIS COLON [...] 06/05/2012 Ot 414.01 COR ONARY ATHEROSCLEROSIS OF [place] CORON 06/05/2012 Ot 562.10 DIV ERTICULOSIS COLON [...] Ot 272.4 03/17/2015 VICTOR M FERRARI FAC, ADONAY FACP CCDS Ot 414.01 03/17/2015 VICTOR M FERRARI [facility], ADONAY FACP CCDS Ot V58.69 03/17/2015 BAIMA, APRIL L PROVIDER ENGAGEMENT EXECUTIVE Ot 272.4 03/17/2015 BAIMA, APRIL L PROVIDER ENGAGEMENT EXECUTIVE Ot 401.9 03/17/2015 BAIMA, APRIL L PROVIDER ENGAGEMENT EXECUTIVE Ot 414.01 03/17/2015 BAIMA, APRIL L PROVIDER ENGAGEMENT EXECUTIVE Ot 272.4 03/17/2015 BAIMA, APRIL L PROVIDER ENGAGEMENT EXECUTIVE Ot V58.69 03/17/2015 BAIMA, APRIL L PROVIDER ENGAGEMENT EXECUTIVE Ot 272.4 03/17/2015 BAIMA, APRIL L PROVIDER ENGAGEMENT EXECUTIVE Ot 414.00 03/17/2015 BAIMA, APRIL L PROVIDER ENGAGEMENT EXECUTIVE Ot 272.4 03/17/2015 BAIMA, APRIL L PROVIDER ENGAGEMENT EXECUTIVE Ot 414.00 03/17/2015 BAIMA, APRIL L PROVIDER ENGAGEMENT EXECUTIVE Ot 447.9 03/17/2015 SHIELA CARTER LARRY A Ot 241.0 03/17/2015 BAIMA, APRIL L PROVIDER ENGAGEMENT EXECUTIVE Ot 272.4 03/17/2015 BAIMA, APRIL L PROVIDER ENGAGEMENT EXECUTIVE Ot 414.00 03/21/2015 BAIMA, APRIL L PROVIDER ENGAGEMENT EXECUTIVE Ot 272.4 03/24/2015 BAIMA, APRIL L PROVIDER ENGAGEMENT EXECUTIVE Ot 272.4 04/06/2015 BAIMA, APRIL L PROVIDER ENGAGEMENT EXECUTIVE Ot 272.4 07/05/2015 VENKAT NELSON MD Ot [...] Ot V45.82 09/15/2015 VICTOR M FERRARI FACC, ALI FACP CCDS Ot 272.4 09/15/2015 VICTOR M FERRARI FACC, ALI FACP CCDS Ot 414.01 09/15/2015 VICTOR M FERRARI FACC, ALI FACP CCDS Ot V58.69 09/15/2015 BAIMA, APRIL L PROVIDER ENGAGEMENT EXECUTIVE Ot 272.4 09/15/2015 BAIMA, APRIL L PROVIDER ENGAGEMENT EXECUTIVE Ot 401.9 09/15/2015 BAIMA, APRIL L PROVIDER ENGAGEMENT EXECUTIVE Ot 414.01 09/15/2015 BAIMA, APRIL L PROVIDER ENGAGEMENT EXECUTIVE Ot 272.4 09/15/2015 BAIMA, APRIL L PROVIDER ENGAGEMENT EXECUTIVE Ot V58.69 09/15/2015 BAIMA, APRIL L PROVIDER ENGAGEMENT EXECUTIVE Ot 272.4 09/15/2015 BAIMA, APRIL L PROVIDER ENGAGEMENT EXECUTIVE Ot 414.00 09/15/2015 BAIMA, APRIL L PROVIDER ENGAGEMENT EXECUTIVE Ot 272.4 09/15/2015 BAIMA, APRIL L PROVIDER ENGAGEMENT EXECUTIVE Ot 414.00 09/15/2015 BAIMA, APRIL L PROVIDER ENGAGEMENT EXECUTIVE Ot 447.9 09/15/2015 ARLENLARRY COSTA DO Ot 241.0 09/15/2015 BAIMAAPRIL PROVIDER ENGAGEMENT EXECUTIVE Ot 272.4 09/15/2015 BAIMAAPRIL PROVIDER ENGAGEMENT EXECUTIVE Ot 414.00 09/15/2015 BAIMAAPRIL L PROVIDER ENGAGEMENT EXECUTIVE Ot 272.4 09/15/2015 LESLIE FERRARI, VENKAT Wiley Ot C61 10/09/2015 BAIMAAPRIL PROVIDER ENGAGEMENT EXECUTIVE Ot E78.5 10/09/2015 BAIMAAPRIL PROVIDER ENGAGEMENT EXECUTIVE Ot I25.10 03/15/2016 Ot 272.4 HYPE RLIPIDEMIA NEC/NOS 03/15/2016 Ot 401.9 HYPE RTENSION NOS 03/15/2016 Ot 414.01 COR ONARY ATHEROSCLEROSIS OF [place] CORON 03/15/2016 Ot V58.69 OTH MED,LT,CURRENT USE 03/15/2016 Ot 272.4 HYPE RLIPIDEMIA NEC/NOS 03/15/2016 Ot 401.9 HYPE RTENSION NOS 03/15/2016 Ot 414.01 COR ONARY ATHEROSCLEROSIS OF [place] CORON 03/15/2016 Ot 415.19 OTH PULMON EMBOLISM/INFARCT [...] TRANSLUM CORON ANGIOPLASTY 03/15/2016 VICTOR M FERRARI FACC, ALI FACP CCDS Ot 272.4 HYPERLIPIDEMIA NEC/NOS 03/15/2016 VICTOR M FERRARI FACC, ALI FACP CCDS Ot 414.01 CORONARY ATHEROSCLEROSIS OF [place] CORON 03/15/2016 VICTOR M FERRARI FACC, ALI FACP CCDS Ot V58.69 OTH MED,LT,CURRENT USE 03/15/2016 BAIMA, APRIL L PROVIDER ENGAGEMENT EXECUTIVE Ot 272.4 HYPERLIPIDEMIA NEC/NOS 03/15/2016 BAIMA, APRIL L PROVIDER ENGAGEMENT EXECUTIVE Ot 401.9 HYPERTENSION NOS 03/15/2016 BAIMA, APRIL L PROVIDER ENGAGEMENT EXECUTIVE Ot 414.01 CORONARY ATHEROSCLEROSIS OF [place] CORON 03/15/2016 BAIMA, APRIL L PROVIDER ENGAGEMENT EXECUTIVE Ot 272.4 HYPERLIPIDEMIA NEC/NOS 03/15/2016 BAIMA, APRIL L PROVIDER ENGAGEMENT EXECUTIVE Ot V58.69 OTH MED,LT,CURRENT USE 03/15/2016 BAIMA, APRIL L PROVIDER ENGAGEMENT EXECUTIVE Ot 272.4 HYPERLIPIDEMIA NEC/NOS 03/15/2016 BAIMA, APRIL L PROVIDER ENGAGEMENT EXECUTIVE Ot 414.00 CORON ATHEROSCLER NOS TYPE VESSEL, NATIV 03/15/2016 BAIMA, APRIL L PROVIDER ENGAGEMENT EXECUTIVE Ot 272.4 HYPERLIPIDEMIA NEC/NOS 03/15/2016 BAIMA, APRIL L PROVIDER ENGAGEMENT EXECUTIVE Ot 414.00 CORON ATHEROSCLER NOS TYPE VESSEL, NATIV 03/15/2016 BAIMA, APRIL L PROVIDER ENGAGEMENT EXECUTIVE Ot 447.9 ARTERIAL DISEASE NOS 03/15/2016 LARRY KUO DO Ot 241.0 NONTOX UNINODULAR GOITER 03/15/2016 BAIMA, APRIL L PROVIDER ENGAGEMENT EXECUTIVE Ot 272.4 HYPERLIPIDEMIA NEC/NOS 03/15/2016 BAIMA, APRIL L PROVIDER ENGAGEMENT EXECUTIVE Ot 414.00 CORON ATHEROSCLER NOS TYPE VESSEL, NATIV 03/15/2016 BAIMA APRIL L PROVIDER ENGAGEMENT EXECUTIVE Ot 272.4 HYPERLIPIDEMIA NEC/NOS 03/15/2016 LESLIE FERRARI, VENKAT A Ot C61 MALIGNANT NEOPLASM OF PROSTATE 03/15/2016 BAIMA, APRIL L PROVIDER ENGAGEMENT EXECUTIVE Ot E78.5 HYPERLIPIDEMIA, UNSPECIFIED 03/15/2016 BAIMA, APRIL L PROVIDER ENGAGEMENT EXECUTIVE Ot I25.10 ATHSCL HEART DISEASE OF [place] CORONARY 03/15/2016 BAIMA, APRIL L PROVIDER ENGAGEMENT EXECUTIVE Ot I25.10 ATHSCL HEART DISEASE OF [place] CORONARY 03/19/2016 BAIMA, APRIL L PROVIDER ENGAGEMENT EXECUTIVE Ot E78.5 HYPERLIPIDEMIA, UNSPECIFIED 03/19/2016 BAIMA, APRIL L PROVIDER ENGAGEMENT EXECUTIVE Ot I25.10 ATHSCL HEART DISEASE OF [place] CORONARY 04/05/2016 BAIMA, APRIL L PROVIDER ENGAGEMENT EXECUTIVE Ot E78.5 HYPERLIPIDEMIA, UNSPECIFIED 04/05/2016 BAIMA, APRIL L PROVIDER ENGAGEMENT EXECUTIVE Ot I25.10 ATHSCL HEART DISEASE OF [place] CORONARY 05/07/2016 Ot 272.4 HYPE RLIPIDEMIA NEC/NOS 05/07/2016 Ot 401.9 HYPE RTENSION NOS 05/07/2016 Ot 414.01 COR ONARY ATHEROSCLEROSIS OF [place] CORON 05/07/2016 Ot 415.19 OTH PULMON EMBOLISM/INFARCT [...] TRANSLUM CORON ANGIOPLASTY 05/07/2016 VICTOR M FERRARI FAC, ALI FACP CCDS Ot 272.4 HYPERLIPIDEMIA NEC/NOS 05/07/2016 VICTOR M FERRARI FACC, ALI FACP CCDS Ot 414.01 CORONARY ATHEROSCLEROSIS OF [place] CORON 05/07/2016 VICTOR M FERRARI FACC, ALI FACP CCDS Ot V58.69 OTH MED,LT,CURRENT USE 05/07/2016 BAIMA, APRIL L PROVIDER ENGAGEMENT EXECUTIVE Ot 272.4 HYPERLIPIDEMIA NEC/NOS 05/07/2016 BAIMA, APRIL L PROVIDER ENGAGEMENT EXECUTIVE Ot 401.9 HYPERTENSION NOS 05/07/2016 BAIMA, APRIL L PROVIDER ENGAGEMENT EXECUTIVE Ot 414.01 CORONARY ATHEROSCLEROSIS OF [place] CORON 05/07/2016 BAIMA, APRIL L PROVIDER ENGAGEMENT EXECUTIVE Ot 272.4 HYPERLIPIDEMIA NEC/NOS 05/07/2016 BAIMA, APRIL L PROVIDER ENGAGEMENT EXECUTIVE Ot V58.69 OTH MED,LT,CURRENT USE 05/07/2016 BAIMA, APRIL L PROVIDER ENGAGEMENT EXECUTIVE Ot 272.4 HYPERLIPIDEMIA NEC/NOS 05/07/2016 BAIMA, APRIL L PROVIDER ENGAGEMENT EXECUTIVE Ot 414.00 CORON ATHEROSCLER NOS TYPE VESSEL, NATIV 05/07/2016 BAIMA, APRIL L PROVIDER ENGAGEMENT EXECUTIVE Ot 272.4 HYPERLIPIDEMIA NEC/NOS 05/07/2016 BAIMA, APRIL L PROVIDER ENGAGEMENT EXECUTIVE Ot 414.00 CORON ATHEROSCLER NOS TYPE VESSEL, NATIV 05/07/2016 BAIAPRIL US L PROVIDER ENGAGEMENT EXECUTIVE Ot 447.9 ARTERIAL DISEASE NOS 05/07/2016 SHIELA CARTER LARRY Saurabh Ot 241.0 NONTOX UNINODULAR GOITER 05/07/2016 KASANDRAMA APRIL L PROVIDER ENGAGEMENT EXECUTIVE Ot 272.4 HYPERLIPIDEMIA NEC/NOS 05/07/2016 BAIMA APRIL L PROVIDER ENGAGEMENT EXECUTIVE Ot 414.00 CORON ATHEROSCLER NOS TYPE VESSEL, NATIV 05/07/2016 BAIMA APRIL L PROVIDER ENGAGEMENT EXECUTIVE Ot 272.4 HYPERLIPIDEMIA NEC/NOS 05/07/2016 LESLIE FERRARI, VENKAT Wiley Ot C61 MALIGNANT NEOPLASM OF PROSTATE 05/07/2016 BAIMA APRIL L PROVIDER ENGAGEMENT EXECUTIVE Ot E78.5 HYPERLIPIDEMIA, UNSPECIFIED 05/07/2016 BAIMA APRIL L PROVIDER ENGAGEMENT EXECUTIVE Ot I25.10 ATHSCL HEART DISEASE OF [place] CORONARY 05/07/2016 KASANDRAMA APRIL L PROVIDER ENGAGEMENT EXECUTIVE Ot E78.5 HYPERLIPIDEMIA, UNSPECIFIED 05/07/2016 BAIMA, APRIL L PROVIDER ENGAGEMENT EXECUTIVE Ot I25.10 ATHSCL HEART DISEASE OF [place] CORONARY 05/28/2016 VICTOR M FERRARI FACC, ADONAY FACP CCDS Ot E78.4 OTHER HYPERLIPIDEMIA 05/28/2016 VICTOR M FERRARI FACC, ALI FACP CCDS Ot I10 ESSENTIAL (PRIMARY) HYPERTENSION 05/28/2016 VICTOR M FERRARI FACC, ALI FACP CCDS Ot I25.10 ATHSCL HEART DISEASE OF [place] CORONARY 05/28/2016 VICTOR M FERRARI FACC, ALI [...] Ot I25.10 ATHSCL HEART DISEASE OF [place] CORONARY 05/31/2016 VICTOR M FERRARI FACC, ALI FACP CCDS Ot I65.23 OCCLUSION AND STENOSIS OF [place]IL[place]AL [place] 05/31/2016 VICTOR M FERRARI FACC, ALI FACP CCDS Ot Z72.0 TOBACCO USE 07/02/2016 LARRY KUO DO Ot M25.531 PAIN IN RIGHT WRIST 07/11/2016 GELLENDER DO, LARRY Wiley Ot E04.1 NONTOXIC SINGLE THYROID NODULE 07/11/2016 [facility] LARRY Wiley Ot R22.1 LOCALIZED SWELLING, MASS AND LUMP, NECK 07/12/2016 [facility] LARRY Wiley Ot E04.1 NONTOXIC SINGLE THYROID NODULE 07/12/2016 GELLENDER DO, LARRY Wiley Ot R22.1 LOCALIZED SWELLING, MASS AND LUMP, NECK 07/12/2016 [facility] LARR[facility] Wiley Ot E04.1 NONTOXIC SINGLE THYROID NODULE 07/12/2016 GELLENDER DO, LARRY Wiley Ot R22.1 LOCALIZED [...] ANGIOPLASTY 07/18/2016 VICTOR M FERRARI FACC, ADONAY ANDRES CCDS Ot 272.4 HYPERLIPIDEMIA NEC/NOS 07/18/2016 VICTOR M FERRARI FACC, ADONAY ANDRES CCDS Ot 414.01 CORONARY ATHEROSCLEROSIS OF [place] CORON 07/18/2016 VICTOR M FERRARI FACC, ADONAY ANDRES CCDS Ot V58.69 OTH MED,LT,CURRENT USE 07/18/2016 BAIMA, APRIL L PROVIDER ENGAGEMENT EXECUTIVE Ot 272.4 HYPERLIPIDEMIA NEC/NOS 07/18/2016 BAIMA, APRIL L PROVIDER ENGAGEMENT EXECUTIVE Ot 401.9 HYPERTENSION NOS 07/18/2016 BAIMA, APRIL L PROVIDER ENGAGEMENT EXECUTIVE Ot 414.01 CORONARY ATHEROSCLEROSIS OF [place] CORON 07/18/2016 BAIMA, APRIL L PROVIDER ENGAGEMENT EXECUTIVE Ot 272.4 HYPERLIPIDEMIA NEC/NOS 07/18/2016 BAIMA, APRIL L PROVIDER ENGAGEMENT EXECUTIVE Ot V58.69 OTH MED,LT,CURRENT USE 07/18/2016 BAIMA, APRIL L PROVIDER ENGAGEMENT EXECUTIVE Ot 272.4 HYPERLIPIDEMIA NEC/NOS 07/18/2016 BAIMA, APRIL L PROVIDER ENGAGEMENT EXECUTIVE Ot 414.00 CORON ATHEROSCLER NOS TYPE VESSEL, NATIV 07/18/2016 BAIMA, APRIL L PROVIDER ENGAGEMENT EXECUTIVE Ot 272.4 HYPERLIPIDEMIA NEC/NOS 07/18/2016 BAIMA, APRIL L PROVIDER ENGAGEMENT EXECUTIVE Ot 414.00 CORON ATHEROSCLER NOS TYPE VESSEL, NATIV 07/18/2016 BAIMA, APRIL L PROVIDER ENGAGEMENT EXECUTIVE Ot 447.9 ARTERIAL DISEASE NOS 07/18/2016 LARRY KUO DO A Ot 241.0 NONTOX UNINODULAR GOITER 07/18/2016 BAIMA, APRIL L PROVIDER ENGAGEMENT EXECUTIVE Ot 272.4 HYPERLIPIDEMIA NEC/NOS 07/18/2016 BAIMA, APRIL L PROVIDER ENGAGEMENT EXECUTIVE Ot 414.00 CORON ATHEROSCLER NOS TYPE VESSEL, NATIV 07/18/2016 BAIMA, APRIL L PROVIDER ENGAGEMENT EXECUTIVE Ot 272.4 HYPERLIPIDEMIA NEC/NOS 07/18/2016 VENKAT NELSON MD Ot C61 MALIGNANT NEOPLASM OF PROSTATE 07/18/2016 BAIMA, APRIL L PROVIDER ENGAGEMENT EXECUTIVE Ot E78.5 HYPERLIPIDEMIA, UNSPECIFIED 07/18/2016 BAIMA, APRIL L PROVIDER ENGAGEMENT EXECUTIVE Ot I25.10 ATHSCL HEART DISEASE OF [place] CORONARY 07/18/2016 BAIMA, APRIL L PROVIDER ENGAGEMENT EXECUTIVE Ot E78.5 HYPERLIPIDEMIA, UNSPECIFIED 07/18/2016 BAIMA, APRIL L PROVIDER ENGAGEMENT EXECUTIVE Ot I25.10 ATHSCL HEART DISEASE OF [place] CORONARY 07/18/2016 VICTOR M FERRARI FACC, ADONAY ANDRES CCDS Ot E78.4 OTHER HYPERLIPIDEMIA 07/18/2016 VICTOR M FERRARI FACC, ALI FACP CCDS Ot I10 ESSENTIAL (PRIMARY) HYPERTENSION 07/18/2016 VICTOR M FERRARI FACC, ALI FACP CCDS Ot I25.10 ATHSCL HEART DISEASE OF [place] CORONARY 07/18/2016 VICTOR M FERRARI FACC, ALI FACP CCDS Ot I65.23 OCCLUSION AND STENOSIS OF BILATERAL [place] 07/18/2016 VICTOR M FERRARI FACC, ALI FACP [...] M89.9 DISORDER OF BONE, UNSPECIFIED 07/25/2016 GELLENDER DOLARRY Ot R22.1 LOCALIZED SWELLING, MASS AND LUMP, NECK 07/25/2016 GELLENDER DO, LARRY Wiley Ot R59.0 LOCALIZED ENLARGED LYMPH NODES 07/25/2016 GELLENDER DOLARRY Ot M25.531 PAIN IN RIGHT WRIST 07/30/2016 GELLENDER DOLARRY Ot M25.531 PAIN IN RIGHT WRIST 08/01/2016 [...] ENLARGED LYMPH NODES 08/14/2016 GELLENDER DO, LARRY Saurabh Ot M89.9 DISORDER OF BONE, UNSPECIFIED 08/14/2016 [...] FOR OTHER BACTER 08/15/2016 GELLENDER DO, LARRY Wiley Ot M89.9 DISORDER [...] Ot M89.9 DISORDER OF BONE, UNSPECIFIED 08/19/2016 GELJULISSA DO, LARRY A Ot R59.0 LOCALIZED ENLARGED LYMPH NODES 08/21/2016 RICHELLE FERRARI, BEAN Love Ot E11.9 TYPE 2 DIABETES MELLITUS WITHOUT COMPLIC 08/21/2016 BEAN PEOPLES MD Ot E78.5 HYPERLIPIDEMIA, UNSPECIFIED 08/21/2016 RICHELLE FERRARI, BEAN Love Ot I1 0 ESSENTIAL (PRIMARY) HYPERTENSION 08/21/2016 BEAN PEOPLES MD Ot I25.10 ATHSCL HEART DISEASE OF [place] CORONARY 08/21/2016 BEAN PEOPLES MD Ot R59.0 LOCALIZED ENLARGED LYMPH NODES 08/21/2016 BEAN PEOPLES MD Ot Z87.891 PERSONAL HISTORY OF NICOTINE DEPENDENCE 08/22/2016 BEAN PEOPLES MD Ot E11.9 TYPE 2 DIABETES MELLITUS WITHOUT COMPLIC 08/22/2016 BEAN PEOPLES MD Ot E78.5 HYPERLIPIDEMIA, UNSPECIFIED 08/22/2016 BEAN PEOPLES MD Ot I1 0 ESSENTIAL (PRIMARY) HYPERTENSION 08/22/2016 BEAN PEOPLES MD Ot I25.10 ATHSCL HEART DISEASE OF [place] CORONARY 08/22/2016 BEAN PEOPLES MD Ot R59.0 LOCALIZED ENLARGED LYMPH NODES 08/22/2016 BEAN PEOPLES MD Ot Z87.891 PERSONAL HISTORY OF NICOTINE DEPENDENCE 08/24/2016 OLGA LIDIA GARCIA APRN Ot E11 .9 TYPE 2 DIABETES MELLITUS WITHOUT COMPLIC 08/24/2016 OLGA LIDIA GARCIA APRN Ot I10 ESSENTIAL (PRIMARY) HYPERTENSION 08/24/2016 OLGA LIDIA GARCIA [employer] Ot R22.42 LOCALIZED SWELLING, MASS AND LUMP, LEFT 08/24/2016 OLGA LIDIA GARCIA APRN Ot R59 .0 LOCALIZED ENLARGED LYMPH NODES 08/24/2016 OLGA LIDIA GARCIA APRN Ot Z79.02 INTERMEDIATE (CURRENT) USE OF ANTITHROMBOTI 08/24/2016 OLGA LIDIA GARCIA APRN Ot Z79.84 INTERMEDIATE (CURRENT) USE OF ORAL HYPOGLYC 08/24/2016 OLGA LIDIA GARCIA APRN Ot Z79.899 OTHER INTERMEDIATE (CURRENT) DRUG THERAPY 08/26/2016 OLGA LIDIA GARCIA APRN Ot E11 .9 TYPE 2 DIABETES MELLITUS WITHOUT COMPLIC 08/26/2016 OLGA LIDIA GARCIA [employer] PILOT Ot I10 ESSENTIAL (PRIMARY) HYPERTENSION 08/26/2016 OLGA LIDIA GARCIA [employer] PILOT Ot R22.42 LOCALIZED SWELLING, MASS AND LUMP, LEFT 08/26/2016 OLGA LIDIA GARCIA [employer] PILOT Ot R59 .0 LOCALIZED ENLARGED LYMPH NODES 08/26/2016 OLGA LIDIA GARCIA [employer] PILOT Ot Z79.02 INTERMEDIATE (CURRENT) USE OF ANTITHROMBOTI 08/26/2016 OLGA LIDIA GARCIA [employer] PILOT Ot Z79.84 INTERMEDIATE (CURRENT) USE OF ORAL HYPOGLYC 08/26/2016 OLGA LIDIA GARCIA [employer] PILOT Ot Z79.899 OTHER INTERMEDIATE (CURRENT) DRUG THERAPY 09/04/2016 RICHELLE FERRARI, BEAN [...] Ot I25.10 ATHSCL HEART DISEASE OF [place] CORONARY 09/05/2016 RICHELLE FERRARI, BEAN Love Ot [...] CCDS Ot 414.01 CORONARY ATHEROSCLEROSIS OF [place] CORON 09/05/2016 VICTOR M FERRARI FACC, ALI FACP CCDS Ot V58.69 OTH MED,LT,CURRENT USE 09/05/2016 BAIMA, APRIL L PROVIDER ENGAGEMENT EXECUTIVE Ot 272.4 HYPERLIPIDEMIA NEC/NOS 09/05/2016 BAIMA, APRIL L PROVIDER ENGAGEMENT EXECUTIVE Ot 401.9 HYPERTENSION NOS 09/05/2016 BAIMA, APRIL L PROVIDER ENGAGEMENT EXECUTIVE Ot 414.01 CORONARY ATHEROSCLEROSIS OF [place] CORON 09/05/2016 BAIMA, APRIL L PROVIDER ENGAGEMENT EXECUTIVE Ot 272.4 HYPERLIPIDEMIA NEC/NOS 09/05/2016 BAIMA, APRIL L PROVIDER ENGAGEMENT EXECUTIVE Ot V58.69 OTH MED,LT,CURRENT USE 09/05/2016 BAIMA, APRIL L PROVIDER ENGAGEMENT EXECUTIVE Ot 272.4 HYPERLIPIDEMIA NEC/NOS 09/05/2016 BAIMA, APRIL L PROVIDER ENGAGEMENT EXECUTIVE Ot 414.00 CORON ATHEROSCLER NOS TYPE VESSEL, NATIV 09/05/2016 BAIMA, APRIL L PROVIDER ENGAGEMENT EXECUTIVE Ot 272.4 HYPERLIPIDEMIA NEC/NOS 09/05/2016 BAIMA, APRIL L PROVIDER ENGAGEMENT EXECUTIVE Ot 414.00 CORON ATHEROSCLER NOS TYPE VESSEL, NATIV 09/05/2016 BAIMA, APRIL L PROVIDER ENGAGEMENT EXECUTIVE Ot 447.9 ARTERIAL DISEASE NOS 09/05/2016 LARRY KUO DO Ot 241.0 NONTOX UNINODULAR GOITER 09/05/2016 BAIMA, APRIL L PROVIDER ENGAGEMENT EXECUTIVE Ot 272.4 HYPERLIPIDEMIA NEC/NOS 09/05/2016 APRIL BARRON PROVIDER ENGAGEMENT EXECUTIVE Ot 414.00 CORON ATHEROSCLER NOS TYPE VESSEL, NATIV 09/05/2016 APRIL BARRON PROVIDER ENGAGEMENT EXECUTIVE Ot 272.4 HYPERLIPIDEMIA NEC/NOS 09/05/2016 LESLIE FERRARI, VENKAT Wiley Ot C61 MALIGNANT NEOPLASM OF PROSTATE 09/05/2016 BAIAPRIL US PROVIDER ENGAGEMENT EXECUTIVE Ot E78.5 HYPERLIPIDEMIA, UNSPECIFIED 09/05/2016 BAIAPRIL US PROVIDER ENGAGEMENT EXECUTIVE Ot I25.10 ATHSCL HEART DISEASE OF [place] CORONARY 09/05/2016 APRIL BARRON PROVIDER ENGAGEMENT EXECUTIVE Ot E78.5 HYPERLIPIDEMIA, UNSPECIFIED 09/05/2016 BAIAPRIL US PROVIDER ENGAGEMENT EXECUTIVE Ot I25.10 ATHSCL HEART DISEASE OF [place] CORONARY 09/05/2016 VICTOR M FERRARI FAC, ALI FACP CCDS Ot E78.4 OTHER HYPERLIPIDEMIA 09/05/2016 VICTOR M FERRARI FACC, ALI FACP CCDS Ot I10 ESSENTIAL (PRIMARY) HYPERTENSION 09/05/2016 VICTOR M FERRARI FAC, ALI FACP CCDS Ot I25.10 ATHSCL HEART DISEASE OF [place] CORONARY 09/05/2016 VICTOR M FERRARI FAC, ALI FACP CCDS Ot I65.23 OCCLUSION AND STENOSIS OF BILATERAL [place] 09/05/2016 VICTOR M FERRARI FAC, ALI FACP [...] BONE, UNSPECIFIED 09/05/2016 LARRY KUO DO Ot R59.0 LOCALIZED ENLARGED LYMPH NODES 09/05/2016 LARRY KUO DO Ot R22.1 LOCALIZED SWELLING, MASS AND LUMP, NECK 09/05/2016 ARLENKEMARBEATRIZ DO, LARRY Wiley Ot C83.30 DIFFUSE LARGE B-CELL LYMPHOMA, UNSPECIFI 09/05/2016 SHIELA LARRY CARTER Ot J35.9 CHRONIC DISEASE OF TONSILS AND ADENOIDS, 09/05/2016 SHIELA CARTERLARRY Ot R59.0 LOCALIZED ENLARGED LYMPH NODES 09/05/2016 SHIELA DOLARRY Ot C83.30 DIFFUSE LARGE B-CELL LYMPHOMA, UNSPECIFI 09/05/2016 SHIELA LARRY CARTER Ot J35.9 CHRONIC DISEASE OF TONSILS AND ADENOIDS, 09/05/2016 SHIELA DO, LARRY Wiley Ot R59.0 LOCALIZED ENLARGED [...] 09/05/2016 RICHELLE FERRARI, BEAN Love Ot Z79.84 INTERMEDIATE (CURRENT) USE OF ORAL HYPOGLYC 09/09/2016 ROXI [...] Ot I25.10 ATHSCL HEART DISEASE OF [place] CORONARY 09/11/2016 ROXI DUNLAP Ot 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 09/11/2016 ROXI DUNLAP Ot Z79.899 OTHER INTERMEDIATE (CURRENT) DRUG THERAPY 09/11/2016 ROXI DUNLAP Ot Z87.891 PERSONAL HISTORY OF NICOTINE DEPENDENCE 09/11/2016 ROXI DUNLAP Ot Z95.5 PRESENCE OF CORONARY ANGIOPLASTY IMPLANT 09/17/2016 ARLENLENDER DO, LRARY Wiley Ot M89.9 DISORDER OF BONE, UNSPECIFIED 09/17/2016 GELLENDER DO, LARRY Wiley Ot R59.0 LOCALIZED ENLARGED LYMPH NODES 09/17/2016 GELLENDER DO, LARRY Wiley Ot R22.1 LOCALIZED SWELLING, MASS AND LUMP, NECK 09/17/2016 GELLENDER DO, LARRY Wiley Ot M89.9 DISORDER OF BONE, UNSPECIFIED 09/17/2016 GELLENDER DO, LARRY Wiley Ot R59.0 LOCALIZED ENLARGED LYMPH NODES 09/17/2016 GELLENDER DO, LARRY Wiley Ot R22.1 LOCALIZED SWELLING, MASS AND LUMP, NECK 09/19/2016 BAIMA, APRIL L PROVIDER ENGAGEMENT EXECUTIVE Ot E78.5 HYPERLIPIDEMIA, UNSPECIFIED 09/19/2016 BAIMA, APRIL L PROVIDER ENGAGEMENT EXECUTIVE Ot I 10 ESSENTIAL (PRIMARY) HYPERTENSION 09/19/2016 BAIMA, APRIL L PROVIDER ENGAGEMENT EXECUTIVE Ot I25.10 ATHSCL HEART DISEASE OF [place] CORONARY 09/19/2016 BAIMA, APRIL L PROVIDER ENGAGEMENT EXECUTIVE Ot I77.9 DISORDER OF ARTERIES AND ARTERIOLES, UNS 09/19/2016 BAIMA, APRIL L PROVIDER ENGAGEMENT EXECUTIVE Ot E78.5 HYPERLIPIDEMIA, UNSPECIFIED 09/19/2016 BAIMA, APRIL L PROVIDER ENGAGEMENT EXECUTIVE Ot I 10 ESSENTIAL (PRIMARY) HYPERTENSION 09/19/2016 BAIMA, APRIL L PROVIDER ENGAGEMENT EXECUTIVE Ot I25.10 ATHSCL HEART DISEASE OF [place] CORONARY 09/19/2016 BAIMA, APRIL L PROVIDER ENGAGEMENT EXECUTIVE Ot I77.9 DISORDER OF ARTERIES AND ARTERIOLES, UNS 09/19/2016 BAIMA, APRIL L PROVIDER ENGAGEMENT EXECUTIVE Ot E78.5 HYPERLIPIDEMIA, UNSPECIFIED 09/19/2016 BAIMA, APRIL L PROVIDER ENGAGEMENT EXECUTIVE Ot I 10 ESSENTIAL (PRIMARY) HYPERTENSION 09/19/2016 BAIMA, APRIL L PROVIDER ENGAGEMENT EXECUTIVE Ot I25.10 ATHSCL HEART DISEASE OF [place] CORONARY 09/19/2016 BAIMA, APRIL L PROVIDER ENGAGEMENT EXECUTIVE Ot I77.9 DISORDER OF ARTERIES AND ARTERIOLES, UNS 09/19/2016 BAIMA, APRIL L PROVIDER ENGAGEMENT EXECUTIVE Ot E78.5 HYPERLIPIDEMIA, UNSPECIFIED 09/19/2016 BAIMA, APRIL L PROVIDER ENGAGEMENT EXECUTIVE Ot I 10 ESSENTIAL (PRIMARY) HYPERTENSION 09/19/2016 APRIL BARRON PROVIDER ENGAGEMENT EXECUTIVE Ot I25.10 ATHSCL HEART DISEASE OF [place] CORONARY 09/19/2016 APRIL BARRON PROVIDER ENGAGEMENT EXECUTIVE Ot I77.9 DISORDER OF ARTERIES AND ARTERIOLES, UNS 09/19/2016 APRIL BARRON PROVIDER ENGAGEMENT EXECUTIVE Ot E78.5 HYPERLIPIDEMIA, UNSPECIFIED 09/19/2016 APRIL BARRON L PROVIDER ENGAGEMENT EXECUTIVE Ot I 10 ESSENTIAL (PRIMARY) HYPERTENSION 09/19/2016 APRIL BARRON PROVIDER ENGAGEMENT EXECUTIVE Ot I25.10 ATHSCL HEART DISEASE OF [place] CORONARY 09/19/2016 APRIL BARRON PROVIDER ENGAGEMENT EXECUTIVE Ot I77.9 DISORDER OF ARTERIES AND ARTERIOLES, UNS 09/24/2016 RICHELLE FERRARI, BEAN Love Ot E11.9 TYPE 2 DIABETES MELLITUS WITHOUT COMPLIC 09/24/2016 RICHELLE FERRARI, BEAN Love Ot E78.5 HYPERLIPIDEMIA, UNSPECIFIED 09/24/2016 RICHELLE FERRARI, BEAN Love Ot I1 0 ESSENTIAL (PRIMARY) HYPERTENSION 09/24/2016 RICHELLE FERRARI, BEAN Love Ot I25.10 ATHSCL HEART DISEASE OF [place] CORONARY 09/24/2016 RICHELLE FERRARI, BEAN Love Ot R59.0 LOCALIZED ENLARGED LYMPH NODES 09/24/2016 RICHELLE FERRARI, EBAN Love Ot Z87.891 PERSONAL HISTORY OF NICOTINE [...] C83.30 DIFFUSE LARGE B-CELL LYMPHOMA, UNSPECIFI 10/04/2016 GELLENDER DO, LARRY A Ot J35.9 CHRONIC DISEASE OF TONSILS AND ADENOIDS, 10/04/2016 ARLENKEMARENRIQUEZ LARRY Saurabh Ot R59.0 LOCALIZED ENLARGED LYMPH NODES 10/09/2016 KASANDRAMAGENAPRILP Ot E78.5 HYPERLIPIDEMIA, UNSPECIFIED 10/09/2016 KASANDRAAPRIL US Licha PROVIDER ENGAGEMENT EXECUTIVE Ot I 10 ESSENTIAL (PRIMARY) HYPERTENSION 10/09/2016 BEATRICE APRIL L PROVIDER ENGAGEMENT EXECUTIVE Ot I25.10 ATHSCL HEART DISEASE OF [place] CORONARY 10/09/2016 APRIL BARRON PROVIDER ENGAGEMENT EXECUTIVE Ot I77.9 DISORDER OF ARTERIES AND ARTERIOLES, UNS 10/21/2016 ROXI DUNLAP Ot C83.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, LYMPH NOD 10/21/2016 ROXI DUNLAP Ot E11.9 TYPE 2 DIABETES MELLITUS WITHOUT COMPLIC 10/21/2016 ROXI DUNLAP Ot E78.5 HYPERLIPIDEMIA, UNSPECIFIED 10/21/2016 ROXI DUNLAP N Ot I10 ESSENTIAL (PRIMARY) HYPERTENSION 10/21/2016 ROXI DUNLAP Ot I25.10 ATHSCL HEART DISEASE OF [place] CORONARY 10/21/2016 ROXI DUNLAP Ot 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 10/21/2016 ROXI DUNLAP Ot Z79.899 OTHER SOFTWARE SALES EXECUTIVE (CURRENT) DRUG THERAPY 10/21/2016 ROXI DUNLAP Ot Z87.891 PERSONAL HISTORY OF NICOTINE DEPENDENCE 10/21/2016 ROXI DUNLAP Ot Z95.5 PRESENCE OF CORONARY ANGIOPLASTY IMPLANT 10/23/2016 ROXI DUNLAP Ot C83.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, LYMPH NOD 10/23/2016 ROXI DUNLAP Ot E11.9 TYPE 2 DIABETES MELLITUS WITHOUT COMPLIC 10/23/2016 ROXI DUNLAP Ot E78.5 HYPERLIPIDEMIA, UNSPECIFIED 10/23/2016 ROXI DUNLAP N Ot I10 ESSENTIAL (PRIMARY) HYPERTENSION 10/23/2016 ROXI DUNLAP Ot I25.10 ATHSCL HEART DISEASE OF [place] CORONARY 10/23/2016 ROXI DUNLAP Ot Z79.84 INTERMEDIATE (CURRENT) USE OF ORAL HYPOGLYC 10/23/2016 ROXI DUNLAP Ot Z79.899 OTHER INTERMEDIATE (CURRENT) DRUG THERAPY 10/23/2016 ROXI DUNLAP Ot Z87.891 PERSONAL HISTORY OF NICOTINE DEPENDENCE 10/23/2016 ROXI DUNLAP Ot Z95.5 PRESENCE OF CORONARY ANGIOPLASTY IMPLANT 10/24/2016 [facility] SYSTEM[facility], LARRY Wiley Ot A41.9 SEPSIS, UNSPECIFIED ORGANISM 10/24/2016 [facility] , LARRY Wiley Ot C85.90 NON-HODGKIN LYMPHOMA, UNSPECIFIED, UNSPE 10/24/2016 [facility] SYSTEM[facility] DO, LARRY Wiley Ot 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 10/24/2016 [facility], LARRY Wiley Ot D70.9 NEUTROPENIA, UNSPECIFIED 10/24/2016 GELLENDER DO, LARRY Wiley Ot E11.9 TYPE 2 DIABETES MELLITUS WITHOUT COMPLIC 10/24/2016 [facility] , LARRY Wiley Ot E78.00 PURE HYPERCHOLESTEROLEMIA, UNSPECIFIED 10/24/2016 [facility] , LARRY Wiley Ot I10 ESSENTIAL (PRIMARY) HYPERTENSION 10/24/2016 [facility] Ot I25.10 ATHSCL HEART DISEASE OF [place] CORONARY 10/24/2016 [facility], LARRY Wiley Ot K04.7 PERIAPICAL ABSCESS WITHOUT SINUS 10/24/2016 [facility] , LARRY Wiley Ot M19.91 PRIMARY OSTEOARTHRITIS, UNSPECIFIED SITE 10/24/2016 [facility] LARRY Ot R50.81 FEVER PRESENTING WITH CONDITIONS CLASSIF 10/24/2016 [facility] Ot T45.1X5A ADVERSE EFFECT OF ANTINEOPLASTIC AND IMM 10/24/2016 [facility] Ot Z79.84 INTERMEDIATE (CURRENT) USE OF ORAL HYPOGLYC 10/24/2016 [facility] Ot Z85.46 PERSONAL HISTORY OF MALIGNANT NEOPLASM O 10/24/2016 [facility] , LARRY Wiley Ot Z87.891 PERSONAL HISTORY OF NICOTINE DEPENDENCE 10/24/2016 [facility]Y Ot Z92.21 PERSONAL HISTORY OF ANTINEOPLASTIC CHEMO 10/24/2016 [facility] Ot Z95.5 PRESENCE OF CORONARY ANGIOPLASTY IMPLANT 11/06/2016 ROXI DUNLAP Ot C83.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, LYMPH NOD 11/06/2016 ROXI DUNLAP Ot E11.9 TYPE 2 DIABETES MELLITUS WITHOUT COMPLIC 11/06/2016 ROXI DUNLAP Ot E78.5 HYPERLIPIDEMIA, UNSPECIFIED 11/06/2016 ROXI DUNLAP N Ot I10 ESSENTIAL (PRIMARY) HYPERTENSION 11/06/2016 ROXI DUNLAP N Ot I25.10 ATHSCL HEART DISEASE OF [place] CORONARY 11/06/2016 ROXI DUNLAP N Ot Z79.84 INTERMEDIATE (CURRENT) USE OF ORAL HYPOGLYC 11/06/2016 ROXI DUNLAP N Ot Z79.899 OTHER SOFTWARE SALES EXECUTIVE (CURRENT) DRUG THERAPY 11/06/2016 ROXI DUNLAP N Ot Z87.891 PERSONAL HISTORY OF NICOTINE DEPENDENCE 11/06/2016 GERMÁN VLADIMIRSEBASTIEN N Ot Z95.5 PRESENCE OF CORONARY ANGIOPLASTY IMPLANT 11/27/2016 JUSTIN ARCEO S PROVIDER ENGAGEMENT EXECUTIVE Ot C83.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, LYMPH NOD 11/27/2016 ARCEO HILAH S PROVIDER ENGAGEMENT EXECUTIVE Ot C83.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, LYMPH NOD 12/02/2016 ARCEO HILAH S PROVIDER ENGAGEMENT EXECUTIVE Ot C83.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, LYMPH NOD 12/04/2016 GERMÁN ROXI N Ot C83.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, LYMPH NOD 12/04/2016 ROXI DUNLAP N Ot E11.9 TYPE 2 DIABETES MELLITUS WITHOUT COMPLIC 12/04/2016 ROXI DUNLAP N Ot E78.5 HYPERLIPIDEMIA, UNSPECIFIED 12/04/2016 ROXI DUNLAP N Ot I10 ESSENTIAL (PRIMARY) HYPERTENSION 12/04/2016 ROXI DUNLAP N Ot I25.10 ATHSCL HEART DISEASE OF [place] CORONARY 12/04/2016 ROXI DUNLAP N Ot Z12.11 ENCOUNTER FOR SCREENING FOR MALIGNANT NE 12/04/2016 ROXI DUNLAP N Ot 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 12/04/2016 ROXI DUNLAP N Ot Z79.899 OTHER INTERMEDIATE (CURRENT) DRUG THERAPY 12/04/2016 ROXI DUNLAP N Ot Z87.891 PERSONAL HISTORY OF NICOTINE DEPENDENCE 12/04/2016 GERMÁN VLADIMIRSEBASTIEN N Ot Z95.5 PRESENCE OF CORONARY ANGIOPLASTY IMPLANT 12/04/2016 ROXI DNULAP N Ot C83.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, LYMPH NOD 12/04/2016 GERMÁN ROXI N Ot E11.9 TYPE 2 DIABETES MELLITUS WITHOUT COMPLIC 12/04/2016 ROXI DUNLAP N Ot E78.5 HYPERLIPIDEMIA, UNSPECIFIED 12/04/2016 ROXI DUNLAP N Ot I10 ESSENTIAL (PRIMARY) HYPERTENSION 12/04/2016 ROXI DUNLAP N Ot I25.10 ATHSCL HEART DISEASE OF [place] CORONARY 12/04/2016 ROXI DUNLAP N Ot Z79.84 INTERMEDIATE (CURRENT) USE OF ORAL HYPOGLYC 12/04/2016 ROXI DUNLAP N Ot Z79.899 OTHER SOFTWARE SALES EXECUTIVE (CURRENT) DRUG THERAPY 12/04/2016 ROXI DUNLAP N Ot Z87.891 PERSONAL HISTORY OF NICOTINE DEPENDENCE 12/04/2016 GERMÁNROXI LEACH N Ot Z95.5 PRESENCE OF CORONARY ANGIOPLASTY IMPLANT 12/06/2016 ROXI DUNLAP N Ot C83.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, LYMPH NOD 12/06/2016 ROXI DUNLAP N Ot E11.9 TYPE 2 DIABETES MELLITUS WITHOUT COMPLIC 12/06/2016 ROXI DUNLAP N Ot E78.5 HYPERLIPIDEMIA, UNSPECIFIED 12/06/2016 ROXI DUNLAP N Ot I10 ESSENTIAL (PRIMARY) HYPERTENSION 12/06/2016 ROXI DUNLAP N Ot I25.10 ATHSCL HEART DISEASE OF [place] CORONARY 12/06/2016 ROXI DUNLAP N Ot 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 12/06/2016 ROXI DUNLAP N Ot Z79.899 OTHER SOFTWARE SALES EXECUTIVE (CURRENT) DRUG THERAPY 12/06/2016 ROXI DUNLAP N Ot Z87.891 PERSONAL HISTORY OF NICOTINE DEPENDENCE 12/06/2016 ROXI DUNLAP N Ot Z95.5 PRESENCE OF CORONARY ANGIOPLASTY IMPLANT 12/18/2016 JUSTIN ARCEO PROVIDER ENGAGEMENT EXECUTIVE Ot C83.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, LYMPH NOD 12/24/2016 JUSTIN ARCEO PROVIDER ENGAGEMENT EXECUTIVE Ot C83.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, LYMPH NOD 01/16/2017 GERMÁN BOBSEBASTIEN N Ot C83.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, LYMPH NOD 01/16/2017 ROXI DUNLAP N Ot E11.9 TYPE 2 DIABETES MELLITUS WITHOUT COMPLIC 01/16/2017 ROXI DUNLAP N Ot E78.5 HYPERLIPIDEMIA, UNSPECIFIED 01/16/2017 GERMÁN VLADIMIRSEBASTIEN N Ot I10 ESSENTIAL (PRIMARY) HYPERTENSION 01/16/2017 ROIX DUNLAP N Ot I25.10 ATHSCL HEART DISEASE OF [place] CORONARY 01/16/2017 GERMÁNROXI LEACH N Ot 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 01/16/2017 GERMÁNROXI LEACH N Ot Z79.899 OTHER SOFTWARE SALES EXECUTIVE (CURRENT) DRUG THERAPY 01/16/2017 ROXI DUNLAP N Ot Z87.891 PERSONAL HISTORY OF NICOTINE DEPENDENCE 01/16/2017 GERMÁN, VLADIMIRSEBASTIEN N Ot Z95.5 PRESENCE OF CORONARY ANGIOPLASTY IMPLANT 01/23/2017 ROXI DUNLAP N Ot C83.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, LYMPH NOD 01/23/2017 GERMÁN, BOBAN N Ot E11.9 TYPE 2 DIABETES MELLITUS WITHOUT COMPLIC 01/23/2017 GERMÁN VLADIMIRAN N Ot E78.5 HYPERLIPIDEMIA, UNSPECIFIED 01/23/2017 GERMÁN, BOBAN N Ot I10 ESSENTIAL (PRIMARY) HYPERTENSION 01/23/2017 GERMÁN BOBAN N Ot I25.10 ATHSCL HEART DISEASE OF [place] CORONARY 01/23/2017 GERMÁNROXI LEACH N Ot 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 01/23/2017 ROXI DUNLAP N Ot Z79.899 OTHER INTERMEDIATE (CURRENT) DRUG THERAPY 01/23/2017 ROXI DUNLAP N Ot Z87.891 PERSONAL HISTORY OF NICOTINE DEPENDENCE 01/23/2017 ROXI DUNLAP N Ot Z95.5 PRESENCE OF CORONARY ANGIOPLASTY IMPLANT 01/29/2017 ROXI DUNLAP N Ot C83.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, LYMPH NOD 01/29/2017 GERMÁN VLADIMIRSEBASTIEN N Ot E11.9 TYPE 2 DIABETES MELLITUS WITHOUT COMPLIC 01/29/2017 GERMÁN VLADIMIRAN N Ot E78.5 HYPERLIPIDEMIA, UNSPECIFIED 01/29/2017 GERMÁN, BOBAN N Ot I10 ESSENTIAL (PRIMARY) HYPERTENSION 01/29/2017 GERMÁN BOBAN N Ot I25.10 ATHSCL HEART DISEASE OF [place] CORONARY 01/29/2017 GERMÁNROXI N Ot 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 01/29/2017 GERMÁN BOBAN N Ot Z79.899 OTHER SOFTWARE SALES EXECUTIVE (CURRENT) DRUG THERAPY 01/29/2017 GERMÁNROXI N Ot Z87.891 PERSONAL HISTORY OF NICOTINE DEPENDENCE 01/29/2017 ROXI DUNLAP N Ot Z95.5 PRESENCE OF CORONARY ANGIOPLASTY IMPLANT 01/30/2017 GERMÁNROXI LEACH N Ot C83.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, LYMPH NOD 01/30/2017 GERMÁNROXI LEACH N Ot E11.9 TYPE 2 DIABETES MELLITUS WITHOUT COMPLIC 01/30/2017 ROXI DUNLAP N Ot E78.5 HYPERLIPIDEMIA, UNSPECIFIED 01/30/2017 GERMÁN VLADIMIRSEBASTIEN N Ot I10 ESSENTIAL (PRIMARY) HYPERTENSION 01/30/2017 GERMÁNROXI N Ot I25.10 ATHSCL HEART DISEASE OF [place] CORONARY 01/30/2017 GERMÁNROXI LEACH N Ot Z79.84 INTERMEDIATE (CURRENT) USE OF ORAL HYPOGLYC 01/30/2017 ROXI DUNLAP N Ot Z79.899 OTHER INTERMEDIATE (CURRENT) DRUG THERAPY 01/30/2017 ROXI DUNLAP N Ot Z87.891 PERSONAL HISTORY OF NICOTINE DEPENDENCE 01/30/2017 GERMÁNROXI LEACH N Ot Z95.5 PRESENCE OF CORONARY ANGIOPLASTY IMPLANT 01/30/2017 ROXI DUNLAP N Ot C83.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, LYMPH NOD 01/30/2017 ROXI DUNLAP N Ot E11.9 TYPE 2 DIABETES MELLITUS WITHOUT COMPLIC 01/30/2017 ROXI DUNLAP N Ot E78.5 HYPERLIPIDEMIA, UNSPECIFIED 01/30/2017 GERMÁNROXI N Ot I10 ESSENTIAL (PRIMARY) HYPERTENSION 01/30/2017 ROXI DUNLAP N Ot I25.10 ATHSCL HEART DISEASE OF [place] CORONARY 01/30/2017 ROXI DUNLAP N Ot Z79.84 INTERMEDIATE (CURRENT) USE OF ORAL HYPOGLYC 01/30/2017 GERMÁNROXI N Ot Z79.899 OTHER INTERMEDIATE (CURRENT) DRUG THERAPY 01/30/2017 VLADIMIR DUNLAPAN N Ot Z87.891 PERSONAL HISTORY OF NICOTINE DEPENDENCE 01/30/2017 GERMÁNROXI LEACH N Ot Z95.5 PRESENCE OF CORONARY ANGIOPLASTY IMPLANT 02/03/2017 ROXI DUNLAP N Ot C83.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, LYMPH NOD 02/03/2017 ROXI DUNLAP N Ot 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 02/03/2017 GERMÁN VLADIMIRAN N Ot E11.9 TYPE 2 DIABETES MELLITUS WITHOUT COMPLIC 02/03/2017 GERMÁN ROXI Jay Ot E78.5 HYPERLIPIDEMIA, UNSPECIFIED 02/03/2017 GERMÁNROXI N Ot I10 ESSENTIAL (PRIMARY) HYPERTENSION 02/03/2017 GERMÁNROXI Ot I25.10 ATHSCL HEART DISEASE OF [place] CORONARY 02/03/2017 GERMÁN ROXI Jay Ot T45.1X5 A ADVERSE EFFECT OF ANTINEOPLASTIC AND IMM 02/03/2017 ROXI DUNLAP Ot Z51.11 ENCOUNTER FOR ANTINEOPLASTIC CHEMOTHERAP 02/03/2017 GERMÁNROXI Ot Z79.84 INTERMEDIATE (CURRENT) USE OF ORAL HYPOGLYC 02/03/2017 GERMÁNROXI N Ot Z79.899 OTHER INTERMEDIATE (CURRENT) DRUG THERAPY 02/03/2017 GERMÁNROXI Ot Z87.891 PERSONAL HISTORY OF NICOTINE DEPENDENCE 02/03/2017 GERMÁNROXI Ot Z95.5 PRESENCE OF CORONARY ANGIOPLASTY IMPLANT 02/25/2017 GERMÁNROXI Ot C83.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, LYMPH NOD 02/25/2017 GERMÁNROXI N Ot Z01.89 ENCOUNTER FOR OTHER SPECIFIED SPECIAL EX 02/25/2017 GERMÁN ROXI N Ot C83.38 DIFFUSE LARGE [...] SECONDARY TO CANCER CHEM 03/05/2017 ROXI DUNLAP Ot E11.9 TYPE 2 DIABETES MELLITUS WITHOUT COMPLIC 03/05/2017 ROXI DUNLAP Ot E78.5 HYPERLIPIDEMIA, UNSPECIFIED 03/05/2017 ROXI DUNLAP N Ot I10 ESSENTIAL (PRIMARY) HYPERTENSION 03/05/2017 ROXI DUNLAP Ot I25.10 ATHSCL HEART DISEASE OF [place] CORONARY 03/05/2017 ROXI DUNLAP Ot T45.1X5 A ADVERSE EFFECT OF ANTINEOPLASTIC AND IMM 03/05/2017 GERMÁN ROXI Jay Ot Z51.11 ENCOUNTER FOR ANTINEOPLASTIC CHEMOTHERAP 03/05/2017 GERMÁNROXI Ot Z79.84 INTERMEDIATE (CURRENT) USE OF ORAL HYPOGLYC 03/05/2017 GERMÁNROXI Ot Z79.899 OTHER INTERMEDIATE (CURRENT) DRUG THERAPY 03/05/2017 GERMÁN ROXI Jay Ot Z87.891 PERSONAL HISTORY OF NICOTINE DEPENDENCE 03/05/2017 GERMÁNROXI Ot Z95.5 PRESENCE OF CORONARY ANGIOPLASTY IMPLANT 03/25/2017 GERMÁNROXI Ot C83.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, LYMPH NOD 03/25/2017 GERMÁNROXI Ot Z01.89 ENCOUNTER FOR OTHER SPECIFIED SPECIAL EX 03/25/2017 GERMÁNROXI Ot C83.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, LYMPH NOD 03/25/2017 GERMÁNROXI Ot Z01.89 ENCOUNTER FOR OTHER SPECIFIED SPECIAL EX 04/08/2017 APRIL BARRON PROVIDER ENGAGEMENT EXECUTIVE Ot E78.4 OTHER HYPERLIPIDEMIA 04/08/2017 APRIL BARRON PROVIDER ENGAGEMENT EXECUTIVE Ot I 10 ESSENTIAL (PRIMARY) HYPERTENSION 04/08/2017 APRIL BARRON L PROVIDER ENGAGEMENT EXECUTIVE Ot I25.10 ATHSCL HEART DISEASE OF [place] CORONARY 04/08/2017 APRIL BARRON PROVIDER ENGAGEMENT EXECUTIVE Ot I65.23 OCCLUSION AND STENOSIS OF BILATERAL [place] 04/26/2017 GERMÁNROXI Ot C83.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, LYMPH NOD 04/26/2017 ROXI DUNLAP Ot 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 04/26/2017 ROXI DUNLAP Ot E11.9 TYPE 2 DIABETES MELLITUS WITHOUT COMPLIC 04/26/2017 ROXI DUNLAP Ot E78.5 HYPERLIPIDEMIA, UNSPECIFIED 04/26/2017 ROXI DUNLAP Ot I10 ESSENTIAL (PRIMARY) HYPERTENSION 04/26/2017 ROXI DUNLAP Ot I25.10 ATHSCL HEART DISEASE OF [place] CORONARY 04/26/2017 ROXI DUNLAP Ot T45.1X5 A ADVERSE EFFECT OF ANTINEOPLASTIC AND IMM 04/26/2017 ROXI DUNLAP Ot Z51.11 ENCOUNTER FOR ANTINEOPLASTIC CHEMOTHERAP 04/26/2017 ROXI DUNLAP Ot 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 04/26/2017 ROXI DUNLAP Ot Z79.899 OTHER SOFTWARE SALES EXECUTIVE (CURRENT) DRUG THERAPY 04/26/2017 ROXI DUNLAP Ot Z87.891 PERSONAL HISTORY OF NICOTINE DEPENDENCE 04/26/2017 ROIX DUNLAP Ot Z95.5 PRESENCE OF CORONARY ANGIOPLASTY [...] CCDS Ot 414.01 CORONARY ATHEROSCLEROSIS OF [place] CORON 04/28/2017 VICTOR M FERRARI FACC, ALI FACP CCDS Ot V58.69 OTH MED,LT,CURRENT USE 04/28/2017 BAIMA, APRIL L PROVIDER ENGAGEMENT EXECUTIVE Ot 272.4 HYPERLIPIDEMIA NEC/NOS 04/28/2017 BAIMA, APRIL L PROVIDER ENGAGEMENT EXECUTIVE Ot 401.9 HYPERTENSION NOS 04/28/2017 BAIMA, APRIL L PROVIDER ENGAGEMENT EXECUTIVE Ot 414.01 CORONARY ATHEROSCLEROSIS OF [place] CORON 04/28/2017 BAIMA, APRIL L PROVIDER ENGAGEMENT EXECUTIVE Ot 272.4 HYPERLIPIDEMIA NEC/NOS 04/28/2017 BAIMA, APRIL L PROVIDER ENGAGEMENT EXECUTIVE Ot V58.69 OTH MED,LT,CURRENT USE 04/28/2017 BAIMA, APRIL L PROVIDER ENGAGEMENT EXECUTIVE Ot 272.4 HYPERLIPIDEMIA NEC/NOS 04/28/2017 BAIMA, APRIL L PROVIDER ENGAGEMENT EXECUTIVE Ot 414.00 CORON ATHEROSCLER NOS TYPE VESSEL, NATIV 04/28/2017 BAIMA, APRIL L PROVIDER ENGAGEMENT EXECUTIVE Ot 272.4 HYPERLIPIDEMIA NEC/NOS 04/28/2017 BAIMA, APRIL L PROVIDER ENGAGEMENT EXECUTIVE Ot 414.00 CORON ATHEROSCLER NOS TYPE VESSEL, NATIV 04/28/2017 BAIMA, APRIL L PROVIDER ENGAGEMENT EXECUTIVE Ot 447.9 ARTERIAL DISEASE NOS 04/28/2017 LARRY KUO DO Ot 241.0 NONTOX UNINODULAR GOITER 04/28/2017 BAIMA, APRIL L PROVIDER ENGAGEMENT EXECUTIVE Ot 272.4 HYPERLIPIDEMIA NEC/NOS 04/28/2017 BAIMA, APRIL L PROVIDER ENGAGEMENT EXECUTIVE Ot 414.00 CORON ATHEROSCLER NOS TYPE VESSEL, NATIV 04/28/2017 BAIMA, APRIL L PROVIDER ENGAGEMENT EXECUTIVE Ot 272.4 HYPERLIPIDEMIA NEC/NOS 04/28/2017 LESLIE FERRARI, VENKAT Wiley Ot C61 MALIGNANT NEOPLASM OF PROSTATE 04/28/2017 BAIMA, APRIL L PROVIDER ENGAGEMENT EXECUTIVE Ot E78.5 HYPERLIPIDEMIA, UNSPECIFIED 04/28/2017 BAIMA, APRIL L PROVIDER ENGAGEMENT EXECUTIVE Ot I25.10 ATHSCL HEART DISEASE OF [place] CORONARY 04/28/2017 BAIMA, APRIL L PROVIDER ENGAGEMENT EXECUTIVE Ot E78.5 HYPERLIPIDEMIA, UNSPECIFIED 04/28/2017 BAIMA, APRIL L PROVIDER ENGAGEMENT EXECUTIVE Ot I25.10 ATHSCL HEART DISEASE OF [place] CORONARY 04/28/2017 VICTOR M FERRARI FACC, ALI FACP CCDS Ot E78.4 OTHER HYPERLIPIDEMIA 04/28/2017 VICTOR M FERRARI FACC, ALI FACP CCDS Ot I10 ESSENTIAL (PRIMARY) HYPERTENSION 04/28/2017 VICTOR M FERRARI FACC, ALI FACP CCDS Ot I25.10 ATHSCL HEART DISEASE OF [place] CORONARY 04/28/2017 VICTOR M FERRARI FACC, ALI FACP CCDS Ot I65.23 OCCLUSION AND STENOSIS OF BILATERAL [place] 04/28/2017 VICTOR M FERRARI FACC, ALI FACP CCDS Ot Z72.0 TOBACCO USE 04/28/2017 LARRY KUO DO Ot M25.531 PAIN IN RIGHT WRIST 04/28/2017 LARRY KUO DO Ot E04.1 NONTOXIC SINGLE THYROID NODULE 04/28/2017 LARRY KUO DO Ot R22.1 LOCALIZED SWELLING, MASS AND LUMP, NECK 04/28/2017 GELLENDER DO, LARRY Saurabh Ot M89.9 DISORDER OF BONE, UNSPECIFIED 04/28/2017 GELLENDER DO, LARRY Wiley Ot R22.1 LOCALIZED SWELLING, MASS AND LUMP, NECK 04/28/2017 GELLENDER DO, LARRY Wiley Ot R59.0 LOCALIZED ENLARGED LYMPH NODES 04/28/2017 GELLENDER DO, LARRY Wiley Ot M89.9 DISORDER OF BONE, UNSPECIFIED 04/28/2017 GELLENDER DO, LARRY Wiley Ot R59.0 LOCALIZED ENLARGED LYMPH NODES 04/28/2017 GELLENDER DO, LARRY Wiley Ot R22.1 LOCALIZED SWELLING, MASS AND LUMP, NECK 04/28/2017 GELLENDER DO, LARRY Wiley Ot C83.30 DIFFUSE LARGE B-CELL LYMPHOMA, UNSPECIFI 04/28/2017 ARLENLENDER LARRY Ot J35.9 CHRONIC DISEASE OF TONSILS AND ADENOIDS, 04/28/2017 GELLENDER DO, LARRY Saurabh Ot R59.0 LOCALIZED ENLARGED LYMPH NODES 04/28/2017 ROXI DUNLAP Ot C85.90 NON-HODGKIN LYMPHOMA, UNSPECIFIED, UNSPE 04/28/2017 ROXI DUNLAP Ot Z01.810 ENCOUNTER FOR PREPROCEDURAL CARDIOVASCUL 04/28/2017 APRIL ABRRON PROVIDER ENGAGEMENT EXECUTIVE Ot E78.5 HYPERLIPIDEMIA, UNSPECIFIED 04/28/2017 APRIL BARRON PROVIDER ENGAGEMENT EXECUTIVE Ot I 10 ESSENTIAL (PRIMARY) HYPERTENSION 04/28/2017 APRIL BARRON PROVIDER ENGAGEMENT EXECUTIVE Ot I25.10 ATHSCL HEART DISEASE OF [place] CORONARY 04/28/2017 APRIL BARRON PROVIDER ENGAGEMENT EXECUTIVE Ot I77.9 DISORDER OF ARTERIES AND ARTERIOLES, UNS 04/28/2017 JUSTIN ARCEO PROVIDER ENGAGEMENT EXECUTIVE Ot C83.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, LYMPH NOD 04/28/2017 ROXI DUNLAP Ot C83.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, LYMPH NOD 04/28/2017 ROXI DUNLAP Ot Z01.89 ENCOUNTER FOR OTHER SPECIFIED SPECIAL EX 04/28/2017 APRIL BARRON PROVIDER ENGAGEMENT EXECUTIVE Ot E78.4 OTHER HYPERLIPIDEMIA 04/28/2017 APRIL BARRON L PROVIDER ENGAGEMENT EXECUTIVE Ot I 10 ESSENTIAL (PRIMARY) HYPERTENSION 04/28/2017 APRIL BARRON PROVIDER ENGAGEMENT EXECUTIVE Ot I25.10 ATHSCL HEART DISEASE OF [place] CORONARY 04/28/2017 APRIL BARRON PROVIDER ENGAGEMENT EXECUTIVE Ot I65.23 OCCLUSION AND STENOSIS OF BILATERAL [place] 04/28/2017 NATASHA LEAHY MD Ot C83.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, LYMPH NOD 04/28/2017 NATASHA LEAHY MD, Ot 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 04/28/2017 NATASHA LEAHY MD Ot E11.9 TYPE 2 DIABETES MELLITUS WITHOUT COMPLIC 04/28/2017 NATASHA LEAHY MD, Ot E78.5 HYPERLIPIDEMIA, UNSPECIFIED 04/28/2017 NATASHA LEAHY MD Ot I10 ESSENTIAL (PRIMARY) HYPERTENSION 04/28/2017 NATASHA LEAHY MD Ot I25.10 ATHSCL HEART DISEASE OF [place] CORONARY 04/28/2017 NATASHA LEAHY MD, Ot T45.1X5 A ADVERSE EFFECT OF ANTINEOPLASTIC AND IMM 04/28/2017 NATASHA LEAHY MD, Ot Z51.11 ENCOUNTER FOR ANTINEOPLASTIC CHEMOTHERAP 04/28/2017 NATASHA LEAHY MD Ot Z79.84 INTERMEDIATE (CURRENT) USE OF ORAL HYPOGLYC 04/28/2017 NATASHA LEAHY MD, Ot Z79.899 OTHER SOFTWARE SALES EXECUTIVE (CURRENT) DRUG THERAPY 04/28/2017 NATASHA LEAHY MD, [...] Ot I25.10 ATHSCL HEART DISEASE OF [place] CORONARY 04/29/2017 VICTOR M FERRARI FACC, ALI FACP CCDS Ot I65.23 OCCLUSION AND STENOSIS OF BILATERAL [place] 04/29/2017 VICTOR M FERRARI FACC, ALI FACP CCDS Ot K76.9 LIVER DISEASE, UNSPECIFIED 05/04/2017 VICTOR M FERRARI FACC, ALI FACP CCDS Ot E78.4 OTHER HYPERLIPIDEMIA 05/04/2017 VICTOR M FERRARI FACC, ALI FACP CCDS Ot I10 ESSENTIAL (PRIMARY) HYPERTENSION 05/04/2017 VICTOR M FERRARI FACC, ALI FACP CCDS Ot I25.10 ATHSCL HEART DISEASE OF [place] CORONARY 05/04/2017 VICTOR M FERRARI FACC, ADONAY FACP CCDS Ot I65.23 OCCLUSION AND STENOSIS OF BILATERAL [place] 05/04/2017 VICTOR M FERRARI FACC, ADONAY FACP CCDS Ot K76.9 LIVER DISEASE, UNSPECIFIED 05/06/2017 GERMÁNROXI LEACH Pierre Ot C83.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, LYMPH NOD 05/06/2017 GERMÁNROXI LEACH Pierre Ot 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 05/06/2017 ROXI DUNLAP Ot E11.9 TYPE 2 DIABETES MELLITUS WITHOUT COMPLIC 05/06/2017 GERMÁNVLADIMIRSEBASTIEN N Ot E78.5 HYPERLIPIDEMIA, UNSPECIFIED 05/06/2017 GERMÁNVLADIMIRSEBASTIEN N Ot I10 ESSENTIAL (PRIMARY) HYPERTENSION 05/06/2017 GERMÁNROXI Ot I25.10 ATHSCL HEART DISEASE OF [place] CORONARY 05/06/2017 GERMÁN ROXI Pierre Ot T45.1X5 A ADVERSE EFFECT OF ANTINEOPLASTIC AND IMM 05/06/2017 ROXI DUNLAP Ot 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 05/06/2017 GERMÁNROXI N Ot Z79.899 OTHER INTERMEDIATE (CURRENT) DRUG THERAPY 05/06/2017 GERMÁN ROXI N Ot Z87.891 PERSONAL HISTORY OF NICOTINE DEPENDENCE 05/06/2017 VLADIMIR DUNLAPSEBASTIEN Pierre Ot Z95.5 PRESENCE OF CORONARY ANGIOPLASTY IMPLANT 05/20/2017 VICTOR M FERRARI FACC, ADONAY FACP CCDS Ot C85.90 NON-[place] LYMPHOMA, UNSPECIFIED, UNSPE 05/20/2017 VICTOR M FERRARI FACC, ADONAY FACP CCDS Ot E11.9 TYPE 2 DIABETES MELLITUS WITHOUT COMPLIC 05/20/2017 VICTOR M FERRARI FACC, ADONAY FACP CCDS Ot E78.5 HYPERLIPIDEMIA, UNSPECIFIED 05/20/2017 VICTOR M FERRARI FACC, ADONAY FACP CCDS Ot I10 ESSENTIAL (PRIMARY) HYPERTENSION 05/20/2017 VICTOR M FERRARI FACC, ADONAY FACP CCDS Ot I25.10 ATHSCL HEART DISEASE OF [place] CORONARY 05/20/2017 VICTOR M FERRARI FACC, ADONAY FACP CCDS Ot 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 [place] 05/20/2017 VICTOR M FERRARI FACC, ADONAY FACP CCDS Ot R07.89 OTHER CHEST PAIN 05/20/2017 VICTOR M FERRARI FACC, ADONAY FACP CCDS Ot Z79.84 INTERMEDIATE (CURRENT) USE OF ORAL HYPOGLYC 05/20/2017 VICTOR M FERRARI FACC, ALI FACP CCDS Ot Z79.899 OTHER SOFTWARE SALES EXECUTIVE (CURRENT) DRUG THERAPY 05/20/2017 VICTOR M FERRARI [...] Ot I25.10 ATHSCL HEART DISEASE OF [place] CORONARY 05/22/2017 VICTOR M FERRARI FACC, ALI [...] Ot I25.10 ATHSCL HEART DISEASE OF [place] CORONARY 05/23/2017 NATASHA LEAHY MD, Ot T45.1X5 A ADVERSE EFFECT OF ANTINEOPLASTIC AND IMM 05/23/2017 NATASHA LEAHY MD, Ot 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 05/23/2017 NATASHA LEAHY MD, Ot Z79.899 OTHER SOFTWARE SALES EXECUTIVE (CURRENT) DRUG THERAPY 05/23/2017 NATASHA LEAHY MD, Ot Z87.891 PERSONAL HISTORY OF NICOTINE DEPENDENCE 05/23/2017 NATASHA LEAHY MD Ot Z95.5 PRESENCE OF CORONARY ANGIOPLASTY IMPLANT 05/26/2017 ADONAY DOW MD, FACC FACP CCDS Ot E78.4 OTHER HYPERLIPIDEMIA 05/26/2017 VICTOR M FERRARI FACC, ADONAY FACP CCDS Ot I10 ESSENTIAL (PRIMARY) HYPERTENSION 05/26/2017 VICTOR M FERRARI FACC, ADONAY FACP CCDS Ot I25.10 ATHSCL HEART DISEASE OF [place] CORONARY 05/26/2017 VICTOR M FERRARI FACC, ADONAY FACP CCDS Ot I65.23 OCCLUSION AND STENOSIS OF [place]ILATERAL [place] 05/26/2017 VICTOR M FERRARI FACC, ADONAY FACP CCDS Ot K76.9 LIVER DISEASE, UNSPECIFIED 06/02/2017 NATASHA LEAHY MD, Ot C83.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, LYMPH NOD 06/02/2017 NATASHA LEAHY MD, Ot 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 06/02/2017 NATASHA LEAHY MD, Ot E11.9 TYPE 2 DIABETES MELLITUS WITHOUT COMPLIC 06/02/2017 NATASHA LEAHY MD, Ot E78.5 HYPERLIPIDEMIA, UNSPECIFIED 06/02/2017 NATASHA LEAHY MD, Ot I10 ESSENTIAL (PRIMARY) HYPERTENSION 06/02/2017 NATASHA LEAHY MD, Ot I25.10 ATHSCL HEART DISEASE OF [place] CORONARY 06/02/2017 NATASHA LEAHY MD Ot T45.1X5 A ADVERSE EFFECT OF ANTINEOPLASTIC AND IMM 06/02/2017 NATASHA LEAHY MD Ot 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 06/02/2017 NATASHA LEAHY MD Ot Z79.899 OTHER INTERMEDIATE (CURRENT) DRUG THERAPY 06/02/2017 NATASHA LEAHY MD Ot Z87.891 PERSONAL HISTORY OF NICOTINE DEPENDENCE 06/02/2017 NATASHA LEAHY MD Ot Z95.5 PRESENCE OF CORONARY ANGIOPLASTY IMPLANT 06/03/2017 ADONAY DOW MD, FACCP CCDS Ot C85.90 NON-[place] LYMPHOMA, UNSPECIFIED, UNSPE 06/03/2017 ADONAY DOW MD, FACC FACP CCDS Ot E11.9 TYPE 2 DIABETES MELLITUS WITHOUT COMPLIC 06/03/2017 ADONAY DOW MD, FACC FACP CCDS Ot E78.5 HYPERLIPIDEMIA, UNSPECIFIED 06/03/2017 VICTOR M FERRARI FACC, ADONAY FACP CCDS Ot I10 ESSENTIAL (PRIMARY) HYPERTENSION 06/03/2017 VICTOR M FERRARI FACC, ADONAY FACP CCDS Ot I25.10 ATHSCL HEART DISEASE OF [place] CORONARY 06/03/2017 VICTOR M FERRARI FACC, ADONAY FACP CCDS Ot 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 [place] 06/03/2017 VICTOR M FERRARI FACC, ALI FACP CCDS Ot R07.89 OTHER CHEST PAIN 06/03/2017 VICTOR M FERRARI FACC, ALI FACP CCDS Ot Z79.84 INTERMEDIATE (CURRENT) USE OF ORAL HYPOGLYC 06/03/2017 VICTOR M FERRARI FACC, ALI FACP CCDS Ot Z79.899 OTHER INTERMEDIATE (CURRENT) DRUG THERAPY 06/03/2017 VICTOR M FERRARI FACC, ALI FACP CCDS Ot Z86.711 PERSONAL HISTORY OF PULMONARY EMBOLISM 06/03/2017 VICTOR M FERRARI FACC, ALI FACP CCDS Ot Z87.891 PERSONAL HISTORY OF NICOTINE DEPENDENCE 06/03/2017 VICTOR M FERRARI FACC, ALI FACP CCDS Ot Z95.5 PRESENCE OF CORONARY ANGIOPLASTY IMPLANT 06/03/2017 NATASHA LEAHY MD, Ot C83.38 DIFFUSE LARGE B-CELL LYMPHOMA, LYMPH NOD 06/03/2017 NATASHA LEAHY MD, Ot 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 06/03/2017 NATASHA LEAHY MD Ot E11.9 TYPE 2 DIABETES MELLITUS WITHOUT COMPLIC 06/03/2017 NATASHA LEAHY MD Ot E78.5 HYPERLIPIDEMIA, UNSPECIFIED 06/03/2017 NATASHA LEAHY MD Ot I10 ESSENTIAL (PRIMARY) HYPERTENSION 06/03/2017 NATASHA LEAHY MD, Ot I25.10 ATHSCL HEART DISEASE OF [place] CORONARY 06/03/2017 NATASHA LEAHY MD, Ot T45.1X5 A ADVERSE EFFECT OF ANTINEOPLASTIC AND IMM 06/03/2017 NATASHA LEAHY MD, Ot Z79.84 INTERMEDIATE (CURRENT) USE OF ORAL HYPOGLYC 06/03/2017 NATASHA LEAHY MD Ot Z79.899 OTHER INTERMEDIATE (CURRENT) DRUG THERAPY 06/03/2017 NATASHA LEAHY MD [...] Ot I25.10 ATHSCL HEART DISEASE OF [place] CORONARY 06/23/2017 NATASHA LEAHY MD Ot T45.1X5 A ADVERSE EFFECT OF ANTINEOPLASTIC AND IMM 06/23/2017 NATASHA LEAHY MD Ot Z79.84 INTERMEDIATE (CURRENT) USE OF ORAL HYPOGLYC 06/23/2017 NATASHA LEAHY MD Ot Z79.899 OTHER INTERMEDIATE (CURRENT) DRUG THERAPY 06/23/2017 NATASHA LEAHY MD [...] Ot I25.10 ATHSCL HEART DISEASE OF [place] CORONARY 06/26/2017 NATASHA LEAHY MD Ot T45.1X5 A ADVERSE EFFECT OF ANTINEOPLASTIC AND IMM 06/26/2017 NATASHA LEAHY MD Ot 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 06/26/2017 NATASHA LEAHY MD Ot Z79.899 OTHER INTERMEDIATE (CURRENT) DRUG THERAPY 06/26/2017 NATASHA LEAHY MD [...] Ot I25.10 ATHSCL HEART DISEASE OF [place] CORONARY 08/20/2017 NATASHA LEAHY MD Ot T45.1X5 A ADVERSE EFFECT OF ANTINEOPLASTIC AND IMM 08/20/2017 NATASHA LEAHY MD Ot Z79.84 INTERMEDIATE (CURRENT) USE OF ORAL HYPOGLYC 08/20/2017 NATASHA LEAHY MD Ot Z79.899 OTHER SOFTWARE SALES EXECUTIVE (CURRENT) DRUG THERAPY 08/20/2017 NATASHA LEAHY MD, Ot Z87.891 PERSONAL HISTORY OF NICOTINE DEPENDENCE 08/20/2017 NATASHA LEAHY MD Ot Z95.5 PRESENCE OF CORONARY ANGIOPLASTY IMPLANT 08/26/2017 BEAN PEOPLES MD Ot K21.9 GASTRO-ESOPHAGEAL REFLUX DISEASE WITHOUT 08/26/2017 BEAN PEOPLES MD Ot R10.13 EPIGASTRIC PAIN 08/26/2017 BEAN PEOPLES MD Ot Z01.818 ENCOUNTER FOR OTHER PREPROCEDURAL EXAMIN 08/27/2017 BEAN PEOPLES MD Ot K21.9 GASTRO-ESOPHAGEAL REFLUX DISEASE WITHOUT 08/27/2017 BEAN PEOPLES MD Ot R10.13 EPIGASTRIC PAIN 08/27/2017 BEAN PEOPLES MD Ot Z01.818 ENCOUNTER FOR OTHER PREPROCEDURAL EXAMIN 09/01/2017 BEAN PEOPLES MD Ot K21.9 GASTRO-ESOPHAGEAL REFLUX DISEASE WITHOUT 09/01/2017 BEAN PEOPLES MD Ot R10.13 EPIGASTRIC PAIN 09/01/2017 BEAN PEOPLES MD Ot Z01.818 ENCOUNTER FOR OTHER PREPROCEDURAL EXAMIN 09/01/2017 BEAN PEOPLES MD Ot E11.9 TYPE 2 DIABETES MELLITUS WITHOUT COMPLIC 09/01/2017 BEAN PEOPLES MD Ot E78.00 PURE HYPERCHOLESTEROLEMIA, UNSPECIFIED 09/01/2017 BEAN PEOPLES MD Ot I1 0 ESSENTIAL (PRIMARY) HYPERTENSION 09/01/2017 BEAN PEOPLES MD Ot I25.10 ATHSCL HEART DISEASE OF [place] CORONARY 09/01/2017 BEAN PEOPLES MD Ot K21.0 GASTRO-ESOPHAGEAL REFLUX DISEASE WITH ES 09/01/2017 BEAN PEOPLES MD Ot K25.9 GASTRIC ULCER, UNSP ACUTE OR CHRONIC, 09/01/2017 BEAN PEOPLES MD Ot K44.9 DIAPHRAGMATIC HERNIA WITHOUT OBSTRUCTION 09/01/2017 BEAN PEOPLES MD Ot Z79.84 INTERMEDIATE (CURRENT) USE OF ORAL HYPOGLYC 09/01/2017 BEAN PEOPLES MD Ot Z79.899 OTHER INTERMEDIATE (CURRENT) DRUG THERAPY 09/01/2017 BEAN PEOPLES MD [...] Ot I25.10 ATHSCL HEART DISEASE OF [place] CORONARY 09/02/2017 BEAN PEOPLES MD Ot K21.0 GASTRO-ESOPHAGEAL REFLUX DISEASE WITH ES 09/02/2017 BEAN PEOPLES MD Ot K25.9 GASTRIC ULCER, UNSP ACUTE OR CHRONIC, 09/02/2017 BEAN PEOPLES MD Ot K44.9 DIAPHRAGMATIC HERNIA WITHOUT OBSTRUCTION 09/02/2017 BEAN PEOPLES MD Ot 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 09/02/2017 BEAN PEOPLES MD Ot Z79.899 OTHER SOFTWARE SALES EXECUTIVE (CURRENT) DRUG THERAPY 09/02/2017 BEAN PEOPLES MD [...] Ot I25.10 ATHSCL HEART DISEASE OF [place] CORONARY 09/07/2017 BEAN PEOPLES MD, Ot K21.0 GASTRO-ESOPHAGEAL REFLUX DISEASE WITH ES 09/07/2017 BEAN PEOPLES MD Ot K25.9 GASTRIC ULCER, UNSP ACUTE OR CHRONIC, 09/07/2017 BEAN PEOPLES MD, Ot K44.9 DIAPHRAGMATIC HERNIA WITHOUT OBSTRUCTION 09/07/2017 BEAN PEOPLES MD, Ot Z79.84 INTERMEDIATE (CURRENT) USE OF ORAL HYPOGLYC 09/07/2017 BEAN PEOPLES MD, Ot Z79.899 OTHER INTERMEDIATE (CURRENT) DRUG THERAPY 09/07/2017 BEAN PEOPLES MD, Ot Z87.891 PERSONAL HISTORY OF NICOTINE DEPENDENCE 09/07/2017 RICHELLE FERRARI, BEAN Love Ot Z88.2 ALLERGY STATUS TO SULFONAMIDES STATUS 09/09/2017 ARMOND FERRARI, NATASHA Ot C83.38 DIFFUSE LARGE B-CELL LYMPHOMA, LYMPH NOD 09/09/2017 NATASHA LEAHY MD, Ot K44.9 DIAPHRAGMATIC HERNIA WITHOUT OBSTRUCTION 09/09/2017 [...] Ot I25.10 ATHSCL HEART DISEASE OF [place] CORONARY 09/19/2017 ROXI DUNLAP Ot 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 09/19/2017 ROXI DUNLAP Ot Z79.899 OTHER INTERMEDIATE (CURRENT) DRUG THERAPY 09/19/2017 ROXI DUNLAP Ot [...] CCDS Ot 414.01 CORONARY ATHEROSCLEROSIS OF [place] CORON 11/15/2017 VICTOR M FERRARI FACC, ALI FACP CCDS Ot V58.69 OTH MED,LT,CURRENT USE 11/15/2017 BAIMA, APIRL L PROVIDER ENGAGEMENT EXECUTIVE Ot 272.4 HYPERLIPIDEMIA NEC/NOS 11/15/2017 BAIMA, APRIL L PROVIDER ENGAGEMENT EXECUTIVE Ot 401.9 HYPERTENSION NOS 11/15/2017 BAIMA, APRIL L PROVIDER ENGAGEMENT EXECUTIVE Ot 414.01 CORONARY ATHEROSCLEROSIS OF [place] CORON 11/15/2017 BAIMA, APRIL L PROVIDER ENGAGEMENT EXECUTIVE Ot 272.4 HYPERLIPIDEMIA NEC/NOS 11/15/2017 BAIMA, APRIL L PROVIDER ENGAGEMENT EXECUTIVE Ot V58.69 OTH MED,LT,CURRENT USE 11/15/2017 BAIMA, APRIL L PROVIDER ENGAGEMENT EXECUTIVE Ot 272.4 HYPERLIPIDEMIA NEC/NOS 11/15/2017 BAIMA, APRIL L PROVIDER ENGAGEMENT EXECUTIVE Ot 414.00 CORON ATHEROSCLER NOS TYPE VESSEL, NATIV 11/15/2017 BAIMA, APRIL L PROVIDER ENGAGEMENT EXECUTIVE Ot 272.4 HYPERLIPIDEMIA NEC/NOS 11/15/2017 BAIMA, APRIL L PROVIDER ENGAGEMENT EXECUTIVE Ot 414.00 CORON ATHEROSCLER NOS TYPE VESSEL, NATIV 11/15/2017 BAIMA, APRIL L PROVIDER ENGAGEMENT EXECUTIVE Ot 447.9 ARTERIAL DISEASE NOS 11/15/2017 LARRY KUO DO Ot 241.0 NONTOX UNINODULAR GOITER 11/15/2017 BAIMA, APRIL L PROVIDER ENGAGEMENT EXECUTIVE Ot 272.4 HYPERLIPIDEMIA NEC/NOS 11/15/2017 BAIMA, APRIL L PROVIDER ENGAGEMENT EXECUTIVE Ot 414.00 CORON ATHEROSCLER NOS TYPE VESSEL, NATIV 11/15/2017 BEATRICEAPRIL PROVIDER ENGAGEMENT EXECUTIVE Ot 272.4 HYPERLIPIDEMIA NEC/NOS 11/15/2017 LESLIE FERRARI, VENKAT Wiley Ot C61 MALIGNANT NEOPLASM OF PROSTATE 11/15/2017 KASANDRAAPRIL US PROVIDER ENGAGEMENT EXECUTIVE Ot E78.5 HYPERLIPIDEMIA, UNSPECIFIED 11/15/2017 BAIAPRIL US L PROVIDER ENGAGEMENT EXECUTIVE Ot I25.10 ATHSCL HEART DISEASE OF [place] CORONARY 11/15/2017 KASANDRAAPRIL US L PROVIDER ENGAGEMENT EXECUTIVE Ot E78.5 HYPERLIPIDEMIA, UNSPECIFIED 11/15/2017 BAIMA, APRIL L PROVIDER ENGAGEMENT EXECUTIVE Ot I25.10 ATHSCL HEART DISEASE OF [place] CORONARY 11/15/2017 VICTOR M FERRARI FACC, ALI FACP CCDS Ot E78.4 OTHER HYPERLIPIDEMIA 11/15/2017 VICTOR M FERRARI FACC, ALI FACP CCDS Ot I10 ESSENTIAL (PRIMARY) HYPERTENSION 11/15/2017 VICTOR M FERRARI FACC, ALI FACP CCDS Ot I25.10 ATHSCL HEART DISEASE OF [place] CORONARY 11/15/2017 VICTOR M FERRARI FACC, ALI FACP CCDS Ot I65.23 OCCLUSION AND STENOSIS OF BILATERAL [place] 11/15/2017 VICTOR M FERRARI FACC, ALI FACP CCDS Ot Z72.0 TOBACCO USE 11/15/2017 LARRY KUO DO Ot M25.531 PAIN IN RIGHT WRIST 11/15/2017 LARRY KUO DO Ot E04.1 NONTOXIC SINGLE THYROID NODULE 11/15/2017 LARRY KUO DO Ot R22.1 LOCALIZED SWELLING, MASS AND LUMP, NECK 11/15/2017 LARRY KUO DO Ot M89.9 DISORDER OF BONE, UNSPECIFIED 11/15/2017 LARRY KUO DO Ot R22.1 LOCALIZED SWELLING, MASS AND LUMP, NECK 11/15/2017 SHARONDER LARRY CARTER Ot R59.0 LOCALIZED ENLARGED LYMPH NODES 11/15/2017 LARRY KUO DO Ot M89.9 DISORDER OF BONE, UNSPECIFIED 11/15/2017 ARLENLENDER LARRY CARTER Ot R59.0 LOCALIZED ENLARGED LYMPH NODES 11/15/2017 ARLENLENDER LARRY CARTER Ot R22.1 LOCALIZED SWELLING, MASS AND LUMP, NECK 11/15/2017 LARRY KUO DO Ot C83.30 DIFFUSE LARGE B-CELL LYMPHOMA, UNSPECIFI 11/15/2017 SHIELA CARTER LARRY Saurabh Ot J35.9 CHRONIC DISEASE OF TONSILS AND ADENOIDS, 11/15/2017 SHIELA CARTER LARRY Wiley Ot R59.0 LOCALIZED ENLARGED LYMPH NODES 11/15/2017 GERMÁN, ROXI Jay Ot C85.90 NON-[place] LYMPHOMA, UNSPECIFIED, UNSPE 11/15/2017 GERMÁNROXI Ot Z01.810 ENCOUNTER FOR PREPROCEDURAL CARDIOVASCUL 11/15/2017 APRIL BARRON PROVIDER ENGAGEMENT EXECUTIVE Ot E78.5 HYPERLIPIDEMIA, UNSPECIFIED 11/15/2017 APRIL BARRON L PROVIDER ENGAGEMENT EXECUTIVE Ot I 10 ESSENTIAL (PRIMARY) HYPERTENSION 11/15/2017 APRIL BARRON L PROVIDER ENGAGEMENT EXECUTIVE Ot I25.10 ATHSCL HEART DISEASE OF [place] CORONARY 11/15/2017 KASANDRAMAGENAPRIL PROVIDER ENGAGEMENT EXECUTIVE Ot I77.9 DISORDER OF ARTERIES AND ARTERIOLES, UNS 11/15/2017 JUSTIN ARCEO PROVIDER ENGAGEMENT EXECUTIVE Ot C83.38 DIFFUSE LARGE B-CELL LYMPHOMA, LYMPH NOD 11/15/2017 ROXI DUNLAP Ot C83.38 DIFFUSE LARGE B-CELL LYMPHOMA, LYMPH NOD 11/15/2017 GERMÁNROXI Ot Z01.89 ENCOUNTER FOR OTHER SPECIFIED SPECIAL EX 11/15/2017 APRIL BARRON L PROVIDER ENGAGEMENT EXECUTIVE Ot E78.4 OTHER HYPERLIPIDEMIA 11/15/2017 APRIL BARRON L PROVIDER ENGAGEMENT EXECUTIVE Ot I 10 ESSENTIAL (PRIMARY) HYPERTENSION 11/15/2017 APRIL BARRON L PROVIDER ENGAGEMENT EXECUTIVE Ot I25.10 ATHSCL HEART DISEASE OF [place] CORONARY 11/15/2017 APRIL BARRON L PROVIDER ENGAGEMENT EXECUTIVE Ot I65.23 OCCLUSION AND STENOSIS OF [place]ILATERAL [place] 11/15/2017 VICTOR M FERRARI FACC, ALI FACP CCDS Ot E78.4 OTHER HYPERLIPIDEMIA 11/15/2017 VICTOR M FERRARI FACC, ALI FACP CCDS Ot I10 ESSENTIAL (PRIMARY) HYPERTENSION 11/15/2017 VICTOR M FERRARI FACC, ALI FACP CCDS Ot I25.10 ATHSCL HEART DISEASE OF [place] CORONARY 11/15/2017 VICTOR M FERRARI FACC, ALI FACP CCDS Ot I65.23 OCCLUSION AND STENOSIS OF BILATERAL [place] 11/15/2017 VICTOR M FERRARI FACC, ALI FACP CCDS Ot K76.9 LIVER DISEASE, UNSPECIFIED 11/15/2017 NATASHA LEAHY MD Ot C83.38 DIFFUSE LARGE B-CELL LYMPHOMA, LYMPH NOD 11/15/2017 NATASHA LEAHY MD Ot K44.9 DIAPHRAGMATIC HERNIA WITHOUT OBSTRUCTION 11/15/2017 NATASHA LEAHY MD Ot R59.0 LOCALIZED ENLARGED LYMPH NODES 11/15/2017 GERMÁN ROXI N Ot C83.38 DIFFUSE LARGE B-CELL LYMPHOMA, LYMPH NOD 11/15/2017 GERMÁN, ROXI N Ot E11.9 TYPE 2 DIABETES MELLITUS WITHOUT COMPLIC 11/15/2017 ROXI DUNLAP N Ot E78.5 HYPERLIPIDEMIA, UNSPECIFIED 11/15/2017 GERMÁNVLADIMIRAN N Ot I10 ESSENTIAL (PRIMARY) HYPERTENSION 11/15/2017 GERMÁNVLADIMIRAN N Ot I25.10 ATHSCL HEART DISEASE OF [place] CORONARY 11/15/2017 GERMÁNROXI N Ot Z79.84 INTERMEDIATE (CURRENT) USE OF ORAL HYPOGLYC 11/15/2017 GERMÁNVLADIMIRAN N Ot Z79.899 OTHER INTERMEDIATE (CURRENT) DRUG THERAPY 11/15/2017 VLADIMIR DUNLAPAN N Ot Z87.891 PERSONAL HISTORY OF NICOTINE DEPENDENCE 11/15/2017 VLADIMIR DUNLAPAN N Ot Z95.5 PRESENCE OF CORONARY ANGIOPLASTY IMPLANT 11/19/2017 GERMÁN ROXI N Ot C83.38 DIFFUSE LARGE B-CELL LYMPHOMA, LYMPH NOD 11/19/2017 GERMÁNROXI N Ot E11.9 TYPE 2 DIABETES MELLITUS WITHOUT COMPLIC 11/19/2017 GERMÁNVLADIMIRAN N Ot E78.5 HYPERLIPIDEMIA, UNSPECIFIED 11/19/2017 GERMÁN BOBAN N Ot I10 ESSENTIAL (PRIMARY) HYPERTENSION 11/19/2017 ROXI DUNLAP N Ot I25.10 ATHSCL HEART DISEASE OF [place] CORONARY 11/19/2017 GERMÁNVLADIMIRAN N Ot Z79.84 INTERMEDIATE (CURRENT) USE OF ORAL HYPOGLYC 11/19/2017 VLADIMIR DUNLAPAN N Ot Z79.899 OTHER INTERMEDIATE (CURRENT) DRUG THERAPY 11/19/2017 VLADIMIR DUNLAPAN N Ot Z87.891 PERSONAL HISTORY OF NICOTINE DEPENDENCE 11/19/2017 VLADIMIR DUNLAPAN N Ot Z95.5 PRESENCE OF CORONARY ANGIOPLASTY IMPLANT 11/19/2017 VLADIMIR DUNLAPAN N Ot M51.34 OTHER INTERVERTEBRAL DISC DEGENERATION, 11/19/2017 ROXI DUNLAP N Ot Z85.72 PERSONAL HISTORY OF NON-[place] LYMPHOMA 11/19/2017 ROXI DUNLAP N Ot Z98.890 OTHER SPECIFIED POSTPROCEDURAL STATES 11/19/2017 KASANDRAMAGENAPRIL L PROVIDER ENGAGEMENT EXECUTIVE Ot E78.4 OTHER HYPERLIPIDEMIA 11/19/2017 BAIMA APRIL L PROVIDER ENGAGEMENT EXECUTIVE Ot I25.10 ATHSCL HEART DISEASE OF [place] CORONARY 11/20/2017 GERMÁN ROXI N Ot C83.38 DIFFUSE LARGE B-CELL LYMPHOMA, LYMPH NOD 11/20/2017 GERMÁN ROXI N Ot E11.9 TYPE 2 DIABETES MELLITUS WITHOUT COMPLIC 11/20/2017 GERMÁN ROXI N Ot E78.5 HYPERLIPIDEMIA, UNSPECIFIED 11/20/2017 GERMÁN ROXI N Ot I10 ESSENTIAL (PRIMARY) HYPERTENSION 11/20/2017 GERMÁNROXI N Ot I25.10 ATHSCL HEART DISEASE OF [place] CORONARY 11/20/2017 GERMÁN ROXI N Ot 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 11/20/2017 GERMÁNROXI N Ot Z79.899 OTHER INTERMEDIATE (CURRENT) DRUG THERAPY 11/20/2017 GERMÁN ROXI N Ot Z87.891 PERSONAL HISTORY OF NICOTINE DEPENDENCE 11/20/2017 GERMÁNROXI N Ot Z95.5 PRESENCE OF CORONARY ANGIOPLASTY IMPLANT 12/08/2017 GERMÁNROXI N Ot M51.34 OTHER INTERVERTEBRAL DISC DEGENERATION, 12/08/2017 GERMÁN ROXI N Ot Z85.72 PERSONAL HISTORY OF NON-[place] LYMPHOMA 12/08/2017 GERMÁN ROXI N Ot Z98.890 OTHER SPECIFIED POSTPROCEDURAL STATES 12/10/2017 APRIL BARRON PROVIDER ENGAGEMENT EXECUTIVE Ot E78.4 OTHER HYPERLIPIDEMIA 12/10/2017 KASANDRAMAGENAPRIL L PROVIDER ENGAGEMENT EXECUTIVE Ot I25.10 ATHSCL HEART DISEASE OF [place] CORONARY 12/10/2017 GERMÁN ROXI N Ot M51.34 OTHER INTERVERTEBRAL DISC DEGENERATION, 12/10/2017 GERMÁN ROXI N Ot Z85.72 PERSONAL HISTORY OF NON-[place] LYMPHOMA 12/10/2017 GERMÁN ROXI N Ot Z98.890 OTHER SPECIFIED POSTPROCEDURAL STATES 12/29/2017 GERMÁN ROXI N Ot C83.38 DIFFUSE LARGE B-CELL LYMPHOMA, LYMPH NOD 12/29/2017 GERMÁN, BOBAN N Ot E11.9 TYPE 2 DIABETES MELLITUS WITHOUT COMPLIC 12/29/2017 GERMÁN BOBAN N Ot E78.5 HYPERLIPIDEMIA, UNSPECIFIED 12/29/2017 GERMÁN, BOBAN N Ot I10 ESSENTIAL (PRIMARY) HYPERTENSION 12/29/2017 GERMÁN, BOBAN N Ot I25.10 ATHSCL HEART DISEASE OF [place] CORONARY 12/29/2017 GERMÁNVLADIMIRAN N Ot Z79.84 INTERMEDIATE (CURRENT) USE OF ORAL HYPOGLYC 12/29/2017 GERMÁN BOBAN N Ot Z79.899 OTHER SOFTWARE SALES EXECUTIVE (CURRENT) DRUG THERAPY 12/29/2017 GERMÁN, BOBAN N Ot Z87.891 PERSONAL HISTORY OF NICOTINE DEPENDENCE 12/29/2017 GERMÁN BOBAN N Ot Z95.5 PRESENCE OF CORONARY ANGIOPLASTY IMPLANT 01/16/2018 GERMÁN BOBAN N Ot C83.38 DIFFUSE LARGE B-CELL LYMPHOMA, LYMPH NOD 01/16/2018 GERMÁN BOBAN N Ot E11.9 TYPE 2 DIABETES MELLITUS WITHOUT COMPLIC 01/16/2018 GERMÁN BOBAN N Ot E78.5 HYPERLIPIDEMIA, UNSPECIFIED 01/16/2018 GERMÁN, BOBAN N Ot I10 ESSENTIAL (PRIMARY) HYPERTENSION 01/16/2018 GERMÁN BOBAN N Ot I25.10 ATHSCL HEART DISEASE OF [place] CORONARY 01/16/2018 GERMÁN BOBAN N Ot 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 01/16/2018 GERMÁN BOBAN N Ot Z79.899 OTHER SOFTWARE SALES EXECUTIVE (CURRENT) DRUG THERAPY 01/16/2018 VLADIMIR DUNLAPAN N Ot Z87.891 PERSONAL HISTORY OF NICOTINE DEPENDENCE 01/16/2018 GERMÁN VLADIMIRAN N Ot Z95.5 PRESENCE OF CORONARY ANGIOPLASTY IMPLANT 01/20/2018 GERMÁN BOBAN N Ot C83.38 DIFFUSE LARGE B-CELL LYMPHOMA, LYMPH NOD 01/20/2018 GERMÁN BOBAN N Ot E11.9 TYPE 2 DIABETES MELLITUS WITHOUT COMPLIC 01/20/2018 GERMÁN BOBAN N Ot E78.5 HYPERLIPIDEMIA, UNSPECIFIED 01/20/2018 GERMÁN, BOBAN N Ot I10 ESSENTIAL (PRIMARY) HYPERTENSION 01/20/2018 GERMÁN, BOBAN N Ot I25.10 ATHSCL HEART DISEASE OF [place] CORONARY 01/20/2018 GERMÁN BOBAN N Ot 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 01/20/2018 ROXI DUNLAP Ot Z79.899 OTHER INTERMEDIATE (CURRENT) DRUG THERAPY 01/20/2018 ROXI DUNLAP Ot [...] CCDS Ot 414.01 CORONARY ATHEROSCLEROSIS OF [place] CORON 02/05/2018 VICTOR M FERRARI FACC, ALI FACP CCDS Ot V58.69 OTH MED,LT,CURRENT USE 02/05/2018 BAIMA, APRIL L PROVIDER ENGAGEMENT EXECUTIVE Ot 272.4 HYPERLIPIDEMIA NEC/NOS 02/05/2018 BAIMA, APRIL L PROVIDER ENGAGEMENT EXECUTIVE Ot 401.9 HYPERTENSION NOS 02/05/2018 BAIMA, APRIL L PROVIDER ENGAGEMENT EXECUTIVE Ot 414.01 CORONARY ATHEROSCLEROSIS OF [place] CORON 02/05/2018 BAIMA, APRIL L PROVIDER ENGAGEMENT EXECUTIVE Ot 272.4 HYPERLIPIDEMIA NEC/NOS 02/05/2018 BAIMA, APRIL L PROVIDER ENGAGEMENT EXECUTIVE Ot V58.69 OTH MED,LT,CURRENT USE 02/05/2018 BAIMA, APRIL L PROVIDER ENGAGEMENT EXECUTIVE Ot 272.4 HYPERLIPIDEMIA NEC/NOS 02/05/2018 BAIMA, APRIL L PROVIDER ENGAGEMENT EXECUTIVE Ot 414.00 CORON ATHEROSCLER NOS TYPE VESSEL, NATIV 02/05/2018 BAIMA, APRIL L PROVIDER ENGAGEMENT EXECUTIVE Ot 272.4 HYPERLIPIDEMIA NEC/NOS 02/05/2018 BAIMA, APRIL L PROVIDER ENGAGEMENT EXECUTIVE Ot 414.00 CORON ATHEROSCLER NOS TYPE VESSEL, NATIV 02/05/2018 BAIMA, APRIL L PROVIDER ENGAGEMENT EXECUTIVE Ot 447.9 ARTERIAL DISEASE NOS 02/05/2018 LARRY KUO DO Ot 241.0 NONTOX UNINODULAR GOITER 02/05/2018 KASANDRAMAGEN, APRIL L PROVIDER ENGAGEMENT EXECUTIVE Ot 272.4 HYPERLIPIDEMIA NEC/NOS 02/05/2018 BAIMA, APRIL L PROVIDER ENGAGEMENT EXECUTIVE Ot 414.00 CORON ATHEROSCLER NOS TYPE VESSEL, NATIV 02/05/2018 BAIMAGEN, APRIL L PROVIDER ENGAGEMENT EXECUTIVE Ot 272.4 HYPERLIPIDEMIA NEC/NOS 02/05/2018 VENKAT NELSON MD Ot C61 MALIGNANT NEOPLASM OF PROSTATE 02/05/2018 BAIMA, APRIL L PROVIDER ENGAGEMENT EXECUTIVE Ot E78.5 HYPERLIPIDEMIA, UNSPECIFIED 02/05/2018 BAIMA, APRIL L PROVIDER ENGAGEMENT EXECUTIVE Ot I25.10 ATHSCL HEART DISEASE OF [place] CORONARY 02/05/2018 BAIMA, APRIL L PROVIDER ENGAGEMENT EXECUTIVE Ot E78.5 HYPERLIPIDEMIA, UNSPECIFIED 02/05/2018 BAIMA, APRIL L PROVIDER ENGAGEMENT EXECUTIVE Ot I25.10 ATHSCL HEART DISEASE OF [place] CORONARY 02/05/2018 VICTOR M FERRARI FACC, ALI FACP CCDS Ot E78.4 OTHER HYPERLIPIDEMIA 02/05/2018 VICTOR M FERRARI FACC, ALI FACP CCDS Ot I10 ESSENTIAL (PRIMARY) HYPERTENSION 02/05/2018 VICTOR M FERRARI FACC, ALI FACP CCDS Ot I25.10 ATHSCL HEART DISEASE OF [place] CORONARY 02/05/2018 VICTOR M FERRARI FACC, ALI FACP CCDS Ot I65.23 OCCLUSION AND STENOSIS OF BILATERAL [place] 02/05/2018 VICTOR M FERRARI FACC, ALI FACP CCDS Ot Z72.0 TOBACCO USE 02/05/2018 ARLENKEMARBEATRIZ LARRY CARTER Ot M25.531 PAIN IN RIGHT WRIST 02/05/2018 LARRY KUO DO Ot E04.1 NONTOXIC SINGLE THYROID NODULE 02/05/2018 [facility] R22.1 LOCALIZED SWELLING, MASS AND LUMP, NECK 02/05/2018 [facility] CARTER Ot M89.9 DISORDER OF BONE, UNSPECIFIED 02/05/2018 LARRY KUO DO Ot R22.1 LOCALIZED SWELLING, MASS AND LUMP, NECK 02/05/2018 SHARONBEATRIZ LARRY CARTER Ot R59.0 LOCALIZED ENLARGED LYMPH NODES 02/05/2018 LARRY KUO DO Ot M89.9 DISORDER OF BONE, UNSPECIFIED 02/05/2018 LARRY KUO DO Ot R59.0 LOCALIZED ENLARGED LYMPH NODES 02/05/2018 SHIELA DO, LARRY Wiley Ot R22.1 LOCALIZED SWELLING, MASS AND LUMP, NECK 02/05/2018 LARRY KUO DO Ot C83.30 DIFFUSE LARGE B-CELL LYMPHOMA, UNSPECIFI 02/05/2018 LARRY KUO DO Ot J35.9 CHRONIC DISEASE OF TONSILS AND ADENOIDS, 02/05/2018 LARRY KUO DO Ot R59.0 LOCALIZED ENLARGED LYMPH NODES 02/05/2018 ROXI DUNLAP Ot C85.90 NON-[place] LYMPHOMA, UNSPECIFIED, UNSPE 02/05/2018 ROXI DUNLAP Ot Z01.810 ENCOUNTER FOR PREPROCEDURAL CARDIOVASCUL 02/05/2018 APRIL BARRON PROVIDER ENGAGEMENT EXECUTIVE Ot E78.5 HYPERLIPIDEMIA, UNSPECIFIED 02/05/2018 APRIL BARRON PROVIDER ENGAGEMENT EXECUTIVE Ot I 10 ESSENTIAL (PRIMARY) HYPERTENSION 02/05/2018 APRIL BARRON PROVIDER ENGAGEMENT EXECUTIVE Ot I25.10 ATHSCL HEART DISEASE OF [place] CORONARY 02/05/2018 APRIL BARRON PROVIDER ENGAGEMENT EXECUTIVE Ot I77.9 DISORDER OF ARTERIES AND ARTERIOLES, UNS 02/05/2018 JUSTIN ARCEO PROVIDER ENGAGEMENT EXECUTIVE Ot C83.38 DIFFUSE LARGE B-CELL LYMPHOMA, LYMPH NOD 02/05/2018 ROXI DUNLAP Ot C83.38 DIFFUSE LARGE B-CELL LYMPHOMA, LYMPH NOD 02/05/2018 ROXI DUNLAP Ot Z01.89 ENCOUNTER FOR OTHER SPECIFIED SPECIAL EX 02/05/2018 APRIL BARRON PROVIDER ENGAGEMENT EXECUTIVE Ot E78.4 OTHER HYPERLIPIDEMIA 02/05/2018 APRIL BARRON PROVIDER ENGAGEMENT EXECUTIVE Ot I 10 ESSENTIAL (PRIMARY) HYPERTENSION 02/05/2018 APRIL BARRON PROVIDER ENGAGEMENT EXECUTIVE Ot I25.10 ATHSCL HEART DISEASE OF [place] CORONARY 02/05/2018 APRIL BARRON PROVIDER ENGAGEMENT EXECUTIVE Ot I65.23 OCCLUSION AND STENOSIS OF BILATERAL [place] 02/05/2018 VICTOR M FERRARI FACC, ALI FACP CCDS Ot E78.4 OTHER HYPERLIPIDEMIA 02/05/2018 VICTOR M FERRARI FACC, ALI FACP CCDS Ot I10 ESSENTIAL (PRIMARY) HYPERTENSION 02/05/2018 VICTOR M FERRARI FACC, ALI FACP CCDS Ot I25.10 ATHSCL HEART DISEASE OF [place] CORONARY 02/05/2018 VICTOR M FERRARI [facility] CCD[facility] Ot I65.23 OCCLUSION AND STENOSIS OF [...] Ot Z98.890 OTHER SPECIFIED POSTPROCEDURAL STATES 02/05/2018 APRIL BARRON PROVIDER ENGAGEMENT EXECUTIVE Ot E78.4 OTHER HYPERLIPIDEMIA 02/05/2018 BAIAPRIL US L PROVIDER ENGAGEMENT EXECUTIVE Ot I25.10 ATHSCL HEART DISEASE OF [place] CORONARY 02/05/2018 ROXI DUNLAP N Ot C83.38 DIFFUSE LARGE B-CELL LYMPHOMA, LYMPH NOD 02/05/2018 ROXI DUNLAP N Ot E11.9 TYPE 2 DIABETES MELLITUS WITHOUT COMPLIC 02/05/2018 ROXI DUNLAP N Ot E78.5 HYPERLIPIDEMIA, UNSPECIFIED 02/05/2018 ROXI DUNLAP N Ot I10 ESSENTIAL (PRIMARY) HYPERTENSION 02/05/2018 ROXI DUNLAP N Ot I25.10 ATHSCL HEART DISEASE OF [place] CORONARY 02/05/2018 ROXI DUNLAP N Ot 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 02/05/2018 ROXI DUNLAP N Ot Z79.899 OTHER SOFTWARE SALES EXECUTIVE (CURRENT) DRUG THERAPY 02/05/2018 ROXI DUNLAP N Ot Z87.891 PERSONAL HISTORY OF NICOTINE DEPENDENCE 02/05/2018 ROXI DUNLAP N Ot Z95.5 PRESENCE OF CORONARY ANGIOPLASTY IMPLANT 03/19/2018 ROXI DUNLAP N Ot C83.38 DIFFUSE LARGE B-CELL LYMPHOMA, LYMPH NOD 03/19/2018 ROXI DUNLAP N Ot E11.9 TYPE 2 DIABETES MELLITUS WITHOUT COMPLIC 03/19/2018 ROXI DUNLAP N Ot E78.5 HYPERLIPIDEMIA, UNSPECIFIED 03/19/2018 GERMÁN, BOBAN N Ot I10 ESSENTIAL (PRIMARY) HYPERTENSION 03/19/2018 GERMÁN, BOBAN N Ot I25.10 ATHSCL HEART DISEASE OF [place] CORONARY 03/19/2018 GERMÁN, VLADIMIRAN N Ot Z79.84 INTERMEDIATE (CURRENT) USE OF ORAL HYPOGLYC 03/19/2018 GERMÁN BOBAN N Ot Z79.899 OTHER INTERMEDIATE (CURRENT) DRUG THERAPY 03/19/2018 GERMÁN, VLADIMIRAN N Ot Z87.891 PERSONAL HISTORY OF NICOTINE DEPENDENCE 03/19/2018 GERMÁN VLADIMIRAN N Ot Z95.5 PRESENCE OF CORONARY ANGIOPLASTY IMPLANT 03/20/2018 GERMÁN, BOBAN N Ot C83.38 DIFFUSE LARGE B-CELL LYMPHOMA, LYMPH NOD 03/20/2018 GERMÁN, BOBAN N Ot E11.9 TYPE 2 DIABETES MELLITUS WITHOUT COMPLIC 03/20/2018 GERMÁN BOBAN N Ot E78.5 HYPERLIPIDEMIA, UNSPECIFIED 03/20/2018 GERMÁN, BOBAN N Ot I10 ESSENTIAL (PRIMARY) HYPERTENSION 03/20/2018 GERMÁN BOBAN N Ot I25.10 ATHSCL HEART DISEASE OF [place] CORONARY 03/20/2018 GERMÁN, VLADIMIRAN N Ot 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 03/20/2018 GERMÁN BOBAN N Ot Z79.899 OTHER SOFTWARE SALES EXECUTIVE (CURRENT) DRUG THERAPY 03/20/2018 GERMÁNVLADIMIR LEACHAN N Ot Z87.891 PERSONAL HISTORY OF NICOTINE DEPENDENCE 03/20/2018 GERMÁN VLADIMIRAN N Ot Z95.5 PRESENCE OF CORONARY ANGIOPLASTY IMPLANT 03/27/2018 GERMÁN, VLADIMIRAN N Ot C83.38 DIFFUSE LARGE B-CELL LYMPHOMA, LYMPH NOD 03/27/2018 GERMÁN BOBAN N Ot E11.9 TYPE 2 DIABETES MELLITUS WITHOUT COMPLIC 03/27/2018 GERMÁN BOBAN N Ot E78.5 HYPERLIPIDEMIA, UNSPECIFIED 03/27/2018 GERMÁN, BOBAN N Ot I10 ESSENTIAL (PRIMARY) HYPERTENSION 03/27/2018 GERMÁN BOBAN N Ot I25.10 ATHSCL HEART DISEASE OF [place] CORONARY 03/27/2018 GERMÁN, ROXI N Ot Z45.2 ENCOUNTER FOR ADJUSTMENT AND MANAGEMENT 03/27/2018 GERMÁNVLADIMIRAN N Ot Z79.84 INTERMEDIATE (CURRENT) USE OF ORAL HYPOGLYC 03/27/2018 GERMÁN BOBAN N Ot Z79.899 OTHER SOFTWARE SALES EXECUTIVE (CURRENT) DRUG THERAPY 03/27/2018 GERMÁNVLADIMIR LEACHAN N Ot Z87.891 PERSONAL HISTORY OF NICOTINE DEPENDENCE 03/27/2018 GERMÁN BOBAN N Ot Z95.5 PRESENCE OF CORONARY ANGIOPLASTY IMPLANT 04/22/2018 ROXI DUNLAP N Ot C83.38 DIFFUSE LARGE B-CELL LYMPHOMA, LYMPH NOD 04/22/2018 GERMÁN BOBAN N Ot E11.9 TYPE 2 DIABETES MELLITUS WITHOUT COMPLIC 04/22/2018 GERMÁN BOBAN N Ot E78.5 HYPERLIPIDEMIA, UNSPECIFIED 04/22/2018 GERMÁN BOBAN N Ot I10 ESSENTIAL (PRIMARY) HYPERTENSION 04/22/2018 GERMÁN BOBAN N Ot I25.10 ATHSCL HEART DISEASE OF [place] CORONARY 04/22/2018 GERMÁNVLADIMIR LEACHAN N Ot Z45.2 ENCOUNTER FOR ADJUSTMENT AND MANAGEMENT 04/22/2018 GERMÁNVLADIMIRAN N Ot 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 04/22/2018 GERMÁN BOBAN N Ot Z79.899 OTHER SOFTWARE SALES EXECUTIVE (CURRENT) DRUG THERAPY 04/22/2018 GERMÁN BOBAN N Ot Z87.891 PERSONAL HISTORY OF NICOTINE DEPENDENCE 04/22/2018 GERMÁN BOBAN N Ot Z95.5 PRESENCE OF CORONARY ANGIOPLASTY IMPLANT 04/29/2018 GERMÁNVLADIMIR LEACHAN N Ot C83.38 DIFFUSE LARGE B-CELL LYMPHOMA, LYMPH NOD 04/29/2018 GERMÁN BOBAN N Ot E11.9 TYPE 2 DIABETES MELLITUS WITHOUT COMPLIC 04/29/2018 GERMÁNVLADIMIRAN N Ot E78.5 HYPERLIPIDEMIA, UNSPECIFIED 04/29/2018 GREMÁN BOBAN N Ot I10 ESSENTIAL (PRIMARY) HYPERTENSION 04/29/2018 GERMÁN BOBAN N Ot I25.10 ATHSCL HEART DISEASE OF [place] CORONARY 04/29/2018 GERMÁN BOBAN N Ot Z45.2 ENCOUNTER FOR ADJUSTMENT AND MANAGEMENT 04/29/2018 GERMÁN BOBAN N Ot Z79.84 INTERMEDIATE (CURRENT) USE OF ORAL HYPOGLYC 04/29/2018 GERMÁN BOBAN N Ot Z79.899 OTHER SOFTWARE SALES EXECUTIVE (CURRENT) DRUG THERAPY 04/29/2018 GERMÁN BOBAN N Ot Z87.891 PERSONAL HISTORY OF NICOTINE DEPENDENCE 04/29/2018 GERMÁN, BOBAN N Ot Z95.5 PRESENCE OF CORONARY ANGIOPLASTY IMPLANT 05/08/2018 BAIAPRIL US PROVIDER ENGAGEMENT EXECUTIVE Ot E78.5 HYPERLIPIDEMIA, UNSPECIFIED 05/08/2018 BAIMAGEN, APRIL L PROVIDER ENGAGEMENT EXECUTIVE Ot I25.10 ATHSCL HEART DISEASE OF [place] CORONARY 05/26/2018 APRIL BARRON PROVIDER ENGAGEMENT EXECUTIVE Ot E78.5 HYPERLIPIDEMIA, UNSPECIFIED 05/26/2018 BAIMA, APRIL L PROVIDER ENGAGEMENT EXECUTIVE Ot I25.10 ATHSCL HEART DISEASE OF [place] CORONARY 06/03/2018 ROXI DUNLAP Pierre Ot C83.38 DIFFUSE LARGE B-CELL LYMPHOMA, LYMPH NOD 06/03/2018 ROXI DUNLAP N Ot E11.9 TYPE 2 DIABETES MELLITUS WITHOUT COMPLIC 06/03/2018 ROXI DUNLAP Ot E78.5 HYPERLIPIDEMIA, UNSPECIFIED 06/03/2018 ROXI DUNLAP N Ot I10 ESSENTIAL (PRIMARY) HYPERTENSION 06/03/2018 ROXI DUNLAP N Ot I25.10 ATHSCL HEART DISEASE OF [place] CORONARY 06/03/2018 ROXI DUNLAP N Ot Z79.84 INTERMEDIATE (CURRENT) USE OF ORAL HYPOGLYC 06/03/2018 ORXI DUNLAP N Ot Z79.899 OTHER SOFTWARE SALES EXECUTIVE (CURRENT) DRUG THERAPY 06/03/2018 ROXI DUNLAP Ot [...] OTHER INTERVERTEBRAL DISC DEGENERATION, 06/30/2018 NATASHA LEAHY MD, Ot Z92.21 PERSONAL HISTORY [...] B-CELL LYMPHOMA, LYMPH NOD 07/27/2018 JUSTIN ARCEO PROVIDER ENGAGEMENT EXECUTIVE Ot K57.30 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 OR AB 07/27/2018 JUSTIN ARCEO PROVIDER ENGAGEMENT EXECUTIVE Ot R59.0 LOCALIZED ENLARGED LYMPH NODES 07/29/2018 ROXI DUNLAP Ot C83.38 DIFFUSE LARGE B-CELL LYMPHOMA, LYMPH NOD 07/29/2018 ROXI DUNLAP Ot E11.9 TYPE 2 DIABETES MELLITUS WITHOUT COMPLIC 07/29/2018 ROXI DUNLAP Ot E78.5 HYPERLIPIDEMIA, UNSPECIFIED 07/29/2018 ROXI DUNLAP Ot I10 ESSENTIAL (PRIMARY) HYPERTENSION 07/29/2018 ROXI DUNLAP Ot I25.10 ATHSCL HEART DISEASE OF [place] CORONARY 07/29/2018 ROXI DUNLAP Ot K57.30 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 OR AB 07/29/2018 ROXI DUNLAP Ot Z79.84 INTERMEDIATE (CURRENT) USE OF ORAL HYPOGLYC 07/29/2018 ROXI DUNLAP Ot Z79.899 OTHER SOFTWARE SALES EXECUTIVE (CURRENT) DRUG THERAPY 07/29/2018 ROXI DUNLAP Ot Z87.891 PERSONAL HISTORY OF NICOTINE DEPENDENCE 07/29/2018 ROXI DUNLAP Ot Z95.5 PRESENCE OF CORONARY ANGIOPLASTY IMPLANT 07/29/2018 NATASHA LEAHY MD, Ot C83.38 DIFFUSE LARGE B-CELL LYMPHOMA, LYMPH NOD 07/29/2018 NATASHA LEAHY MD Ot E11.9 TYPE 2 DIABETES MELLITUS WITHOUT COMPLIC 07/29/2018 NATASHA LEAHY MD Ot I10 ESSENTIAL (PRIMARY) HYPERTENSION 07/29/2018 NATASHA LEAHY MD, Ot M51.34 OTHER INTERVERTEBRAL DISC DEGENERATION, 07/29/2018 NATASHA LEAHY MD Ot Z92.21 PERSONAL HISTORY OF ANTINEOPLASTIC CHEMO 07/29/2018 NATASHA LEAHY MD, Ot Z98.1 ARTHRODESIS STATUS 07/30/2018 JUSTIN ARCEOP Ot C83.38 DIFFUSE LARGE B-CELL LYMPHOMA, LYMPH NOD 07/30/2018 JUSTIN ARCEO PROVIDER ENGAGEMENT EXECUTIVE Ot K57.30 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 OR AB 07/30/2018 JUSTIN ARCEO PROVIDER ENGAGEMENT EXECUTIVE Ot R59.0 LOCALIZED ENLARGED LYMPH NODES 07/31/2018 ROXI DUNLAP Ot C83.38 DIFFUSE LARGE B-CELL LYMPHOMA, LYMPH NOD 07/31/2018 ROXI DUNLAP Ot E11.9 TYPE 2 DIABETES MELLITUS WITHOUT COMPLIC 07/31/2018 ROXI DUNLAP Ot E78.5 HYPERLIPIDEMIA, UNSPECIFIED 07/31/2018 ROXI DUNLAP N Ot I10 ESSENTIAL (PRIMARY) HYPERTENSION 07/31/2018 ROXI DUNLAP Ot I25.10 ATHSCL HEART DISEASE OF [place] CORONARY 07/31/2018 ROXI DUNLAP Ot Z79.84 INTERMEDIATE (CURRENT) USE OF ORAL HYPOGLYC 07/31/2018 ROXI DUNLAP Ot Z79.899 OTHER SOFTWARE SALES EXECUTIVE (CURRENT) DRUG THERAPY 07/31/2018 ROXI DUNLAP Ot Z87.891 PERSONAL HISTORY OF NICOTINE DEPENDENCE 07/31/2018 ROXI DUNLAP Ot Z95.5 PRESENCE OF CORONARY ANGIOPLASTY IMPLANT 07/31/2018 ROXI DUNLAP Ot C83.38 DIFFUSE LARGE B-CELL LYMPHOMA, LYMPH NOD 07/31/2018 ORXI DUNLAP Ot E11.9 TYPE 2 DIABETES MELLITUS WITHOUT COMPLIC 07/31/2018 ROXI DUNLAP Ot E78.5 HYPERLIPIDEMIA, UNSPECIFIED 07/31/2018 ROXI DUNLAP N Ot I10 ESSENTIAL (PRIMARY) HYPERTENSION 07/31/2018 ROXI DUNLAP N Ot I25.10 ATHSCL HEART DISEASE OF [place] CORONARY 07/31/2018 ROXI DUNLAP Ot Z79.84 INTERMEDIATE (CURRENT) USE OF ORAL HYPOGLYC 07/31/2018 ROXI DUNLAP Ot Z79.899 OTHER INTERMEDIATE (CURRENT) DRUG THERAPY 07/31/2018 ROXI DUNLAP Ot Z87.891 PERSONAL HISTORY OF NICOTINE DEPENDENCE 07/31/2018 ROXI DUNLAP Ot Z95.5 PRESENCE OF CORONARY ANGIOPLASTY IMPLANT 08/03/2018 RICHELLE FERRARI, BEAN Love Ot Z01.818 ENCOUNTER FOR OTHER PREPROCEDURAL EXAMIN 08/07/2018 BEAN PEOPLES MD Ot C85.90 NON-[place] LYMPHOMA, UNSPECIFIED, UNSPE 08/07/2018 BEAN PEOPLES MD Ot E11.9 TYPE 2 DIABETES MELLITUS WITHOUT COMPLIC 08/07/2018 BEAN PEOPLES MD Ot I1 0 ESSENTIAL (PRIMARY) HYPERTENSION 08/07/2018 BEAN PEOPLES MD Ot I25.10 ATHSCL HEART DISEASE OF [place] CORONARY 08/07/2018 BEAN PEOPLES MD Ot Z0 8 ENCNTR FOR FOLLOW-UP EXAM AFTER TRTMT FO 08/07/2018 BEAN PEOPLES MD Ot Z79.82 INTERMEDIATE (CURRENT) USE OF ASPIRIN 08/07/2018 BEAN PEOPLES MD Ot Z79.84 INTERMEDIATE (CURRENT) USE OF ORAL HYPOGLYC 08/07/2018 BEAN PEOPLES MD Ot Z79.899 OTHER INTERMEDIATE (CURRENT) DRUG THERAPY 08/07/2018 BEAN PEOPLES MD Ot Z87.891 PERSONAL HISTORY OF NICOTINE DEPENDENCE 08/07/2018 RICHELLE FERRARI, BEAN Love Ot Z95.5 PRESENCE OF CORONARY ANGIOPLASTY IMPLANT 08/11/2018 ROXI DUNLAP Ot C83.38 DIFFUSE LARGE B-CELL LYMPHOMA, LYMPH NOD 08/11/2018 ROXI DUNLAP Ot E11.9 TYPE 2 DIABETES MELLITUS WITHOUT COMPLIC 08/11/2018 ROXI DUNLAP Ot E78.5 HYPERLIPIDEMIA, UNSPECIFIED 08/11/2018 ROXI DUNLAP Ot I10 ESSENTIAL (PRIMARY) HYPERTENSION 08/11/2018 ROXI DUNLAP Ot I25.10 ATHSCL HEART DISEASE OF [place] CORONARY 08/11/2018 ROXI DUNLAP Ot K57.30 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 OR AB 08/11/2018 GERMÁNROXI LEACH Pierre Ot Z79.84 INTERMEDIATE (CURRENT) USE OF ORAL HYPOGLYC 08/11/2018 GERMÁNROXI Ot Z79.899 OTHER INTERMEDIATE (CURRENT) DRUG THERAPY 08/11/2018 GERMÁN, VLADIMIRSEBASTIEN Pierre Ot Z87.891 PERSONAL HISTORY OF NICOTINE DEPENDENCE 08/11/2018 GERMÁN, ROXI Jay Ot Z95.5 PRESENCE OF CORONARY ANGIOPLASTY IMPLANT 08/11/2018 RICHELLE FERRARI, BEAN Love Ot C85.90 NON-[place] LYMPHOMA, UNSPECIFIED, UNSPE 08/11/2018 RICHELLE FERRARI, BEAN Love Ot E11.9 TYPE 2 DIABETES MELLITUS WITHOUT COMPLIC 08/11/2018 RICHELLE FERRARI, BEAN Love Ot I1 0 ESSENTIAL (PRIMARY) HYPERTENSION 08/11/2018 RICHELLE FERRARI, BEAN Love Ot I25.10 ATHSCL HEART DISEASE OF [place] CORONARY 08/11/2018 BEAN PEOPLES MD Ot Z0 8 ENCNTR FOR FOLLOW-UP EXAM AFTER TRTMT FO 08/11/2018 RICHELLE FERRARI, BEAN Love Ot Z79.82 INTERMEDIATE (CURRENT) USE OF ASPIRIN 08/11/2018 BEAN PEOPLES MD Ot Z79.84 INTERMEDIATE (CURRENT) USE OF ORAL HYPOGLYC 08/11/2018 BEAN PEOPLES MD Ot Z79.899 OTHER SOFTWARE SALES EXECUTIVE (CURRENT) DRUG THERAPY 08/11/2018 RICHELLE FERRARI, BEAN Love Ot Z87.891 PERSONAL HISTORY OF NICOTINE DEPENDENCE 08/11/2018 RICHELLE FERRARI, BEAN Love Ot Z95.5 PRESENCE OF CORONARY ANGIOPLASTY IMPLANT 08/14/2018 JUSTIN ARCEO Ot C83.38 DIFFUSE LARGE B-CELL LYMPHOMA, LYMPH NOD 08/14/2018 JUSTIN ARCEOP Ot K57.30 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 08/14/2018 JUSTIN ARCEOP Ot R59.0 LOCALIZED ENLARGED LYMPH NODES 08/19/2018 JUSTIN ARCEO PROVIDER ENGAGEMENT EXECUTIVE Ot C83.38 DIFFUSE LARGE B-CELL LYMPHOMA, LYMPH NOD 08/19/2018 JUSTIN ARCEO PROVIDER ENGAGEMENT EXECUTIVE Ot K57.30 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 OR AB 08/19/2018 JUSTIN ARCEO [facility] Ot R59.0 LOCALIZED ENLARGED LYMPH NODES 09/18/2018 GERMÁNROXI N Ot C83.38 DIFFUSE LARGE B-CELL LYMPHOMA, LYMPH NOD 09/18/2018 GERMÁN, BOBAN N Ot E11.9 TYPE 2 DIABETES MELLITUS WITHOUT COMPLIC 09/18/2018 GERMÁNVLADIMIRAN N Ot E78.5 HYPERLIPIDEMIA, UNSPECIFIED 09/18/2018 GERMÁN, BOBAN N Ot I10 ESSENTIAL (PRIMARY) HYPERTENSION 09/18/2018 GERMÁN BOBAN N Ot I25.10 ATHSCL HEART DISEASE OF [place] CORONARY 09/18/2018 GERMÁNVLADIMIRAN N Ot Z79.84 INTERMEDIATE (CURRENT) USE OF ORAL HYPOGLYC 09/18/2018 GERMÁN BOBAN N Ot Z79.899 OTHER INTERMEDIATE (CURRENT) DRUG THERAPY 09/18/2018 GERMÁN BOBAN N Ot Z87.891 PERSONAL HISTORY OF NICOTINE DEPENDENCE 09/18/2018 GERMÁN BOBAN N Ot Z95.5 PRESENCE OF CORONARY ANGIOPLASTY IMPLANT 09/22/2018 GERMÁNROXI N Ot C83.38 DIFFUSE LARGE B-CELL LYMPHOMA, LYMPH NOD 09/22/2018 GERMÁN BOBAN N Ot E11.9 TYPE 2 DIABETES MELLITUS WITHOUT COMPLIC 09/22/2018 GERMÁN BOBAN N Ot E78.5 HYPERLIPIDEMIA, UNSPECIFIED 09/22/2018 GERMÁN BOBAN N Ot I10 ESSENTIAL (PRIMARY) HYPERTENSION 09/22/2018 GERMÁN BOBAN N Ot I25.10 ATHSCL HEART DISEASE OF [place] CORONARY 09/22/2018 GERMÁNROXI N Ot 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 09/22/2018 GERMÁN BOBAN N Ot Z79.899 OTHER SOFTWARE SALES EXECUTIVE (CURRENT) DRUG THERAPY 09/22/2018 GERMÁN, BOBAN N Ot Z87.891 PERSONAL HISTORY OF NICOTINE DEPENDENCE 09/22/2018 GERMÁN BOBAN N Ot Z95.5 PRESENCE OF CORONARY ANGIOPLASTY IMPLANT 10/28/2018 GERMÁNROXI N Ot C83.38 DIFFUSE LARGE B-CELL LYMPHOMA, LYMPH NOD 10/28/2018 GERMÁN BOBAN N Ot E11.9 TYPE 2 DIABETES MELLITUS WITHOUT COMPLIC 10/28/2018 GERMÁNVLADIMIRAN N Ot E78.5 HYPERLIPIDEMIA, UNSPECIFIED 10/28/2018 GERMÁN, BOBAN N Ot I10 ESSENTIAL (PRIMARY) HYPERTENSION 10/28/2018 GERMÁN BOBAN N Ot I25.10 ATHSCL HEART DISEASE OF [place] CORONARY 10/28/2018 GERMÁN, VLADIMIRAN N Ot 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 10/28/2018 GERMÁN BOBAN N Ot Z79.899 OTHER SOFTWARE SALES EXECUTIVE (CURRENT) DRUG THERAPY 10/28/2018 GERMÁN, VLADIMIRAN N Ot Z87.891 PERSONAL HISTORY OF NICOTINE DEPENDENCE 10/28/2018 GERMÁN VLADIMIRAN N Ot Z95.5 PRESENCE OF CORONARY ANGIOPLASTY IMPLANT 10/29/2018 GERMÁN VLADIMIRAN N Ot C83.38 DIFFUSE LARGE B-CELL LYMPHOMA, LYMPH NOD 10/29/2018 GERMÁN BOBAN N Ot E11.9 TYPE 2 DIABETES MELLITUS WITHOUT COMPLIC 10/29/2018 GERMÁN BOBAN N Ot E78.5 HYPERLIPIDEMIA, UNSPECIFIED 10/29/2018 GERMÁN, BOBAN N Ot I10 ESSENTIAL (PRIMARY) HYPERTENSION 10/29/2018 GERMÁN BOBAN N Ot I25.10 ATHSCL HEART DISEASE OF [place] CORONARY 10/29/2018 GERMÁN VLADIMIRAN N Ot 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 10/29/2018 GERMÁNVLADIMIRAN N Ot Z79.899 OTHER INTERMEDIATE (CURRENT) DRUG THERAPY 10/29/2018 GERMÁN, ROXI N Ot Z87.891 PERSONAL HISTORY OF NICOTINE DEPENDENCE 10/29/2018 GERMÁN VLADIMIRAN N Ot Z95.5 PRESENCE OF CORONARY ANGIOPLASTY IMPLANT 11/03/2018 GERMÁNVLADIMIRAN N Ot C83.38 DIFFUSE LARGE B-CELL LYMPHOMA, LYMPH NOD 11/03/2018 GERMÁNVLADIMIRAN N Ot E11.9 TYPE 2 DIABETES MELLITUS WITHOUT COMPLIC 11/03/2018 GERMÁN BOBAN N Ot E78.5 HYPERLIPIDEMIA, UNSPECIFIED 11/03/2018 GERMÁN BOBAN N Ot I10 ESSENTIAL (PRIMARY) HYPERTENSION 11/03/2018 GERMÁN BOBAN N Ot I25.10 ATHSCL HEART DISEASE OF [place] CORONARY 11/03/2018 GERMÁNVLADIMIRAN N Ot 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 11/03/2018 GERMÁN BOBAN N Ot Z79.899 OTHER SOFTWARE SALES EXECUTIVE (CURRENT) DRUG THERAPY 11/03/2018 ROXI DUNLAP N Ot Z87.891 PERSONAL HISTORY OF NICOTINE DEPENDENCE 11/03/2018 ROXI DUNLAP N Ot Z95.5 PRESENCE OF CORONARY ANGIOPLASTY IMPLANT 11/12/2018 BAIAPRIL US PROVIDER ENGAGEMENT EXECUTIVE Ot E78.5 HYPERLIPIDEMIA, UNSPECIFIED 11/12/2018 BAIMA, APRIL L PROVIDER ENGAGEMENT EXECUTIVE Ot I25.10 ATHSCL HEART DISEASE OF [place] CORONARY 12/01/2018 BAIAPRIL US L PROVIDER ENGAGEMENT EXECUTIVE Ot E78.5 HYPERLIPIDEMIA, UNSPECIFIED 12/01/2018 BAIMA, APRIL L PROVIDER ENGAGEMENT EXECUTIVE Ot I25.10 ATHSCL HEART DISEASE OF [place] CORONARY 02/05/2019 GERMÁN VLADIMIRSEBASTIEN N Ot C83.38 DIFFUSE LARGE B-CELL LYMPHOMA, LYMPH NOD 02/05/2019 GERMÁN, BOBAN N Ot E11.9 TYPE 2 DIABETES MELLITUS WITHOUT COMPLIC 02/05/2019 GERMÁN VLADIMIRAN N Ot E78.5 HYPERLIPIDEMIA, UNSPECIFIED 02/05/2019 GERMÁN BOBAN N Ot I10 ESSENTIAL (PRIMARY) HYPERTENSION 02/05/2019 GERMÁNVLADIMIRAN N Ot I25.10 ATHSCL HEART DISEASE OF [place] CORONARY 02/05/2019 GERMÁNVLADIMIRAN N Ot 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 02/05/2019 GERMÁNVLADIMIRAN N Ot Z79.899 OTHER SOFTWARE SALES EXECUTIVE (CURRENT) DRUG THERAPY 02/05/2019 GERMÁN VLADIMIRSEBASTIEN N Ot Z87.891 PERSONAL HISTORY OF NICOTINE DEPENDENCE 02/05/2019 GERMÁN VLADIMIRSEBASTIEN N Ot Z95.5 PRESENCE OF CORONARY ANGIOPLASTY IMPLANT 03/18/2019 GERMÁN ROXI N Ot C83.38 DIFFUSE LARGE B-CELL LYMPHOMA, LYMPH NOD 03/18/2019 GERMÁNVLADIMIRAN N Ot E11.9 TYPE 2 DIABETES MELLITUS WITHOUT COMPLIC 03/18/2019 GERMÁN VLADIMIRAN N Ot E78.5 HYPERLIPIDEMIA, UNSPECIFIED 03/18/2019 GERMÁN BOBAN N Ot I10 ESSENTIAL (PRIMARY) HYPERTENSION 03/18/2019 GERMÁN BOBAN N Ot I25.10 ATHSCL HEART DISEASE OF [place] CORONARY 03/18/2019 GERMÁNVLADIMIRAN N Ot 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 03/18/2019 GERMÁN BOBAN N Ot Z79.899 OTHER INTERMEDIATE (CURRENT) DRUG THERAPY 03/18/2019 GERMÁNVLADIMIR LEACHAN N Ot Z87.891 PERSONAL HISTORY OF NICOTINE DEPENDENCE 03/18/2019 GERMÁN BOBAN N Ot Z95.5 PRESENCE OF CORONARY ANGIOPLASTY IMPLANT 05/02/2019 GERMÁN BOBAN N Ot C83.38 DIFFUSE LARGE B-CELL LYMPHOMA, LYMPH NOD 05/02/2019 GERMÁN BOBAN N Ot E11.9 TYPE 2 DIABETES MELLITUS WITHOUT COMPLIC 05/02/2019 GERMÁN BOBAN N Ot E78.5 HYPERLIPIDEMIA, UNSPECIFIED 05/02/2019 GERMÁN BOBAN N Ot I10 ESSENTIAL (PRIMARY) HYPERTENSION 05/02/2019 GERMÁN, BOBAN N Ot I25.10 ATHSCL HEART DISEASE OF [place] CORONARY 05/02/2019 GERMÁN BOBAN N Ot Z79.84 INTERMEDIATE (CURRENT) USE OF ORAL HYPOGLYC 05/02/2019 GERMÁN, BOBAN N Ot Z79.899 OTHER INTERMEDIATE (CURRENT) DRUG THERAPY 05/02/2019 GERMÁN, BOBAN N Ot Z87.891 PERSONAL HISTORY OF NICOTINE DEPENDENCE 05/02/2019 GERMÁN BOBAN N Ot Z95.5 PRESENCE OF CORONARY ANGIOPLASTY IMPLANT 05/03/2019 GERMÁN BOBAN N Ot C83.38 DIFFUSE LARGE B-CELL LYMPHOMA, LYMPH NOD 05/03/2019 GERMÁN BOBAN N Ot E11.9 TYPE 2 DIABETES MELLITUS WITHOUT COMPLIC 05/03/2019 GERMÁN BOBAN N Ot E78.5 HYPERLIPIDEMIA, UNSPECIFIED 05/03/2019 GERMÁN BOBAN N Ot I10 ESSENTIAL (PRIMARY) HYPERTENSION 05/03/2019 GERMÁN BOBAN N Ot I25.10 ATHSCL HEART DISEASE OF [place] CORONARY 05/03/2019 GERMÁN BOBAN N Ot 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 05/03/2019 GERMÁN BOBAN N Ot Z79.899 OTHER SOFTWARE SALES EXECUTIVE (CURRENT) DRUG THERAPY 05/03/2019 GERMÁN, BOBAN N Ot Z87.891 PERSONAL HISTORY OF NICOTINE DEPENDENCE 05/03/2019 GERMÁN BOBAN N Ot Z95.5 PRESENCE OF CORONARY ANGIOPLASTY IMPLANT 05/06/2019 GERMÁN BOBAN N Ot C83.38 DIFFUSE LARGE B-CELL LYMPHOMA, LYMPH NOD 05/09/2019 GERMÁN BOBAN N Ot C83.38 DIFFUSE LARGE B-CELL LYMPHOMA, LYMPH NOD 05/13/2019 APRIL BARRON PROVIDER ENGAGEMENT EXECUTIVE Ot E78.5 HYPERLIPIDEMIA, UNSPECIFIED 05/13/2019 BAIMAGEN APRIL L PROVIDER ENGAGEMENT EXECUTIVE Ot I25.10 ATHSCL HEART DISEASE OF [place] CORONARY 05/17/2019 APRIL BARRON L PROVIDER ENGAGEMENT EXECUTIVE Ot E78.5 HYPERLIPIDEMIA, UNSPECIFIED 05/17/2019 BAIAPRIL US L PROVIDER ENGAGEMENT EXECUTIVE Ot I25.10 ATHSCL HEART DISEASE OF [place] CORONARY 05/25/2019 GERMÁNVLADIMIR LEACHAN N Ot C83.38 DIFFUSE LARGE B-CELL LYMPHOMA, LYMPH NOD 05/31/2019 GERMÁN, BOBAN N Ot C83.30 DIFFUSE LARGE B-CELL LYMPHOMA, UNSPECIFI 05/31/2019 GERMÁN, BOBAN N Ot E78.5 HYPERLIPIDEMIA, UNSPECIFIED 05/31/2019 GERMÁN, BOBAN N Ot I10 ESSENTIAL (PRIMARY) HYPERTENSION 05/31/2019 GERMÁN BOBAN N Ot I25.10 ATHSCL HEART DISEASE OF [place] CORONARY 05/31/2019 GERMÁN, BOBAN N Ot R59.0 LOCALIZED ENLARGED LYMPH NODES 05/31/2019 GERMÁN, BOBAN N Ot R97.20 ELEVATED PROSTATE SPECIFIC ANTIGEN [PSA] 05/31/2019 GERMÁN BOBAN N Ot Z92.21 PERSONAL HISTORY OF ANTINEOPLASTIC CHEMO 06/01/2019 KASANDRAAPRIL US L PROVIDER ENGAGEMENT EXECUTIVE Ot E78.5 HYPERLIPIDEMIA, UNSPECIFIED 06/01/2019 KASANDRAMAHOLLISAPRIL L PROVIDER ENGAGEMENT EXECUTIVE Ot I25.10 ATHSCL HEART DISEASE OF [place] CORONARY 06/03/2019 ROXI DUNLAP N Ot C83.38 DIFFUSE LARGE B-CELL LYMPHOMA, LYMPH NOD 06/18/2019 GERMÁN, BOBAN N Ot C83.30 DIFFUSE LARGE B-CELL LYMPHOMA, UNSPECIFI 06/18/2019 GERMÁN BOBAN N Ot E78.5 HYPERLIPIDEMIA, UNSPECIFIED 06/18/2019 GERMÁN, BOBAN N Ot I10 ESSENTIAL (PRIMARY) HYPERTENSION 06/18/2019 GERMÁN BOBAN N Ot I25.10 ATHSCL HEART DISEASE OF [place] CORONARY 06/18/2019 GERMÁN BOBAN N Ot R59.0 LOCALIZED ENLARGED LYMPH NODES 06/18/2019 GERMÁN, BOBAN N Ot R97.20 ELEVATED PROSTATE SPECIFIC ANTIGEN [PSA] 06/18/2019 GERMÁN BOBAN N Ot Z92.21 PERSONAL HISTORY OF ANTINEOPLASTIC CHEMO 06/23/2019 ROXI DUNLAP N Ot C83.30 DIFFUSE LARGE B-CELL LYMPHOMA, UNSPECIFI 06/23/2019 ROXI DUNLAP N Ot E78.5 HYPERLIPIDEMIA, UNSPECIFIED 06/23/2019 ROXI DUNLAP N Ot I10 ESSENTIAL (PRIMARY) HYPERTENSION 06/23/2019 ROXI DUNLAP N Ot I25.10 ATHSCL HEART DISEASE OF [place] CORONARY 06/23/2019 ROXI DUNLAP N Ot R59.0 LOCALIZED ENLARGED LYMPH NODES 06/23/2019 ROXI DUNLAP N Ot R97.20 ELEVATED PROSTATE SPECIFIC ANTIGEN [PSA] 06/23/2019 ROXI DUNLAP N Ot Z92.21 PERSONAL HISTORY OF ANTINEOPLASTIC CHEMO 07/13/2019 RXOI DUNLAP N Ot C83.30 DIFFUSE LARGE B-CELL LYMPHOMA, UNSPECIFI 07/13/2019 ROXI DUNLAP N Ot E78.5 HYPERLIPIDEMIA, UNSPECIFIED 07/13/2019 GERMÁN BOBSEBASTIEN N Ot I10 ESSENTIAL (PRIMARY) HYPERTENSION 07/13/2019 ROXI DUNLAP N Ot I25.10 ATHSCL HEART DISEASE OF [place] CORONARY 07/13/2019 ROXI DUNLAP N Ot R59.0 LOCALIZED ENLARGED LYMPH NODES 07/13/2019 ROXI DUNLAP N Ot R97.20 ELEVATED PROSTATE SPECIFIC ANTIGEN [PSA] 07/13/2019 ROXI DUNLAP N Ot Z92.21 PERSONAL HISTORY OF ANTINEOPLASTIC CHEMO 07/13/2019 APRIL BARRON PROVIDER ENGAGEMENT EXECUTIVE Ot 272.4 HYPERLIPIDEMIA NEC/NOS 07/13/2019 APRIL BARRON L PROVIDER ENGAGEMENT EXECUTIVE Ot 414.00 CORON ATHEROSCLER NOS TYPE VESSEL, NATIV 07/13/2019 APRIL BARRON L PROVIDER ENGAGEMENT EXECUTIVE Ot 447.9 ARTERIAL DISEASE NOS 07/13/2019 LARRY KUO DO A Ot 241.0 NONTOX UNINODULAR GOITER 07/13/2019 APRIL BARRON L PROVIDER ENGAGEMENT EXECUTIVE Ot 272.4 HYPERLIPIDEMIA NEC/NOS 07/13/2019 APRIL BARRON L PROVIDER ENGAGEMENT EXECUTIVE Ot 414.00 CORON ATHEROSCLER NOS TYPE VESSEL, NATIV 07/13/2019 APRIL BARRON L PROVIDER ENGAGEMENT EXECUTIVE Ot 272.4 HYPERLIPIDEMIA NEC/NOS 07/13/2019 LESLIE FERRARI, VENKAT Wiley Ot C61 MALIGNANT NEOPLASM OF PROSTATE 07/13/2019 APRIL BARRON L PROVIDER ENGAGEMENT EXECUTIVE Ot E78.5 HYPERLIPIDEMIA, UNSPECIFIED 07/13/2019 APRIL BARRON PROVIDER ENGAGEMENT EXECUTIVE Ot I25.10 ATHSCL HEART DISEASE OF [place] CORONARY 07/13/2019 APRIL BARRON PROVIDER ENGAGEMENT EXECUTIVE Ot E78.5 HYPERLIPIDEMIA, UNSPECIFIED 07/13/2019 APRIL BARRON PROVIDER ENGAGEMENT EXECUTIVE Ot I25.10 ATHSCL HEART DISEASE OF [place] CORONARY 07/13/2019 VICTOR M FERRARI FAC, ALI FACP CCDS Ot E78.4 OTHER HYPERLIPIDEMIA 07/13/2019 VICTOR M FERRARI FACC, ALI FACP CCDS Ot I10 ESSENTIAL (PRIMARY) HYPERTENSION 07/13/2019 VICTOR M FERRARI FAC, ALI FACP CCDS Ot I25.10 ATHSCL HEART DISEASE OF [place] CORONARY 07/13/2019 VICTOR M FERRARI FAC, ALI FACP CCDS Ot I65.23 OCCLUSION AND STENOSIS OF BILATERAL [place] 07/13/2019 VICTOR M FERRARI FACC, ALI FACP CCDS Ot Z72.0 TOBACCO USE 07/13/2019 [facility] LARR[facility] Wiley Ot M25.531 PAIN IN RIGHT WRIST 07/13/2019 [facility], LARRY Wiley Ot E04.1 NONTOXIC SINGLE THYROID NODULE 07/13/2019 [facility], LARRY Wiley Ot R22.1 LOCALIZED SWELLING, MASS AND LUMP, NECK 07/13/2019 [facility] L[facility] Wiley Ot M89.9 DISORDER OF BONE, UNSPECIFIED 07/13/2019 [facility] LARR[facility] Wiley Ot R22.1 LOCALIZED SWELLING, MASS AND LUMP, NECK 07/13/2019 [facility] DOL[facility] Ot R59.0 LOCALIZED ENLARGED LYMPH NODES 07/13/2019 [facility] Ot M89.9 DISORDER OF BONE, UNSPECIFIED 07/13/2019 GE[facility]ER DOLARRY Ot R59.0 LOCALIZED ENLARGED LYMPH NODES 07/13/2019 [facility] Ot R22.1 LOCALIZED SWELLING, MASS AND LUMP, NECK 07/13/2019 [facility] D[facility] Ot C83.30 DIFFUSE LARGE B-CELL LYMPHOMA, UNSPECIFI 07/13/2019 [facility] LARRY Ot J35.9 CHRONIC DISEASE OF TONSILS AND ADENOIDS, 07/13/2019 GE[facility]ENDER DOLARRY Ot R59.0 LOCALIZED ENLARGED LYMPH NODES 07/13/2019 ROXI DUNLAP Ot C85.90 NON-[place] LYMPHOMA, UNSPECIFIED, UNSPE 07/13/2019 ROXI DUNLAP Ot Z01.810 ENCOUNTER FOR PREPROCEDURAL CARDIOVASCUL 07/13/2019 APRIL BARRON PROVIDER ENGAGEMENT EXECUTIVE Ot E78.5 HYPERLIPIDEMIA, UNSPECIFIED 07/13/2019 APRIL BARRON L PROVIDER ENGAGEMENT EXECUTIVE Ot I 10 ESSENTIAL (PRIMARY) HYPERTENSION 07/13/2019 KASANDRAAPRIL US L PROVIDER ENGAGEMENT EXECUTIVE Ot I25.10 ATHSCL HEART DISEASE OF [place] CORONARY 07/13/2019 APRIL BARRON L PROVIDER ENGAGEMENT EXECUTIVE Ot I77.9 DISORDER OF ARTERIES AND ARTERIOLES, UNS 07/13/2019 TAYO ARCEOERICKA Zeynep PROVIDER ENGAGEMENT EXECUTIVE Ot C83.38 DIFFUSE LARGE B-CELL LYMPHOMA, LYMPH NOD 07/13/2019 ROXI DUNLAP Ot C83.38 DIFFUSE LARGE B-CELL LYMPHOMA, LYMPH NOD 07/13/2019 ROXI DUNLAP Ot Z01.89 ENCOUNTER FOR OTHER SPECIFIED SPECIAL EX 07/13/2019 KASANDRAAPRIL US L PROVIDER ENGAGEMENT EXECUTIVE Ot E78.4 OTHER HYPERLIPIDEMIA 07/13/2019 APRIL BARRON L PROVIDER ENGAGEMENT EXECUTIVE Ot I 10 ESSENTIAL (PRIMARY) HYPERTENSION 07/13/2019 APRIL BARRON L PROVIDER ENGAGEMENT EXECUTIVE Ot I25.10 ATHSCL HEART DISEASE OF [place] CORONARY 07/13/2019 APRIL BARRON L PROVIDER ENGAGEMENT EXECUTIVE Ot I65.23 OCCLUSION AND STENOSIS OF BILATERAL [place] 07/13/2019 VICTOR M FERRARI [facility], ALI FACP CCDS Ot E78.4 OTHER HYPERLIPIDEMIA 07/13/2019 VICTOR M FERRARI FAC, ALI FACP CCDS Ot I10 ESSENTIAL (PRIMARY) HYPERTENSION 07/13/2019 VICTOR M FERRARI FAC, ALI FACP CCDS Ot I25.10 ATHSCL HEART DISEASE OF [place] CORONARY 07/13/2019 VICTOR M FERRARI FAC, ALI FACP [...] OTHER INTERVERTEBRAL DISC DEGENERATION, 07/13/2019 ROXI DUNLAP Pierre Ot Z85.72 PERSONAL HISTORY OF NON-[place] LYMPHOMA 07/13/2019 ROXI DUNLAP Pierre Ot Z98.890 OTHER SPECIFIED POSTPROCEDURAL STATES 07/13/2019 ROXI DUNLAP Pierre Ot 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, LYMPH NODES OF HEA 07/13/2019 ROXI DUNLAP Pierre Ot K76.89 OTHER SPECIFIED DISEASES OF [place] 07/13/2019 APRIL BARRON L PROVIDER ENGAGEMENT EXECUTIVE Ot E78.4 OTHER HYPERLIPIDEMIA 07/13/2019 BEATRICE APRIL L PROVIDER ENGAGEMENT EXECUTIVE Ot I25.10 ATHSCL HEART DISEASE OF [place] CORONARY 07/13/2019 JUSTIN ARCEO PROVIDER ENGAGEMENT EXECUTIVE Ot C83.38 DIFFUSE LARGE B-CELL LYMPHOMA, LYMPH NOD 07/13/2019 JUSTIN ARCEO PROVIDER ENGAGEMENT EXECUTIVE Ot K57.30 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 OR AB 07/13/2019 JUSTIN ARCOE PROVIDER ENGAGEMENT EXECUTIVE Ot R59.0 LOCALIZED ENLARGED LYMPH NODES 07/13/2019 APRIL BARRON L PROVIDER ENGAGEMENT EXECUTIVE Ot E78.5 HYPERLIPIDEMIA, UNSPECIFIED 07/13/2019 BEATRICE, APRIL L PROVIDER ENGAGEMENT EXECUTIVE Ot I25.10 ATHSCL HEART DISEASE OF [place] CORONARY 07/13/2019 APRIL BARRON PROVIDER ENGAGEMENT EXECUTIVE Ot E78.5 HYPERLIPIDEMIA, UNSPECIFIED 07/13/2019 KASANDRAMA APRIL L PROVIDER ENGAGEMENT EXECUTIVE Ot I25.10 ATHSCL HEART DISEASE OF [place] CORONARY 07/13/2019 GERMÁN, ROXI Jay Ot C83.38 DIFFUSE LARGE B-CELL LYMPHOMA, LYMPH NOD 07/13/2019 HOLLIS BARRONHER L PROVIDER ENGAGEMENT EXECUTIVE Ot E78.5 HYPERLIPIDEMIA, UNSPECIFIED 07/13/2019 KASANDRAMA APRIL L PROVIDER ENGAGEMENT EXECUTIVE Ot I25.10 ATHSCL HEART DISEASE OF [place] CORONARY 07/13/2019 GERMÁN, ROXI Jay Ot C83.30 DIFFUSE LARGE B-CELL LYMPHOMA, UNSPECIFI 07/13/2019 GERMÁN, ROXI Jay Ot E78.5 HYPERLIPIDEMIA, UNSPECIFIED 07/13/2019 GERMÁN, ROXI Jay Ot I10 ESSENTIAL (PRIMARY) HYPERTENSION 07/13/2019 ROXI DUNLAP Ot I25.10 ATHSCL HEART DISEASE OF [place] CORONARY 07/13/2019 ROXI DUNLAP Ot R59.0 LOCALIZED ENLARGED LYMPH NODES 07/13/2019 ROXI DUNLAP Ot R97.20 ELEVATED PROSTATE SPECIFIC ANTIGEN [PSA] 07/13/2019 ROXI DUNLPA Ot Z92.21 PERSONAL HISTORY OF ANTINEOPLASTIC CHEMO 07/13/2019 BAIMA, APRIL L PROVIDER ENGAGEMENT EXECUTIVE Ot 272.4 HYPERLIPIDEMIA NEC/NOS 07/13/2019 BAIMA, APRIL L PROVIDER ENGAGEMENT EXECUTIVE Ot 414.00 CORON ATHEROSCLER NOS TYPE VESSEL, NATIV 07/13/2019 BAIMA, APRIL L PROVIDER ENGAGEMENT EXECUTIVE Ot 447.9 ARTERIAL DISEASE NOS 07/13/2019 LARRY KUO DO Ot 241.0 NONTOX UNINODULAR GOITER 07/13/2019 BAIMA, APRIL L PROVIDER ENGAGEMENT EXECUTIVE Ot 272.4 HYPERLIPIDEMIA NEC/NOS 07/13/2019 BAIMA, APRIL L PROVIDER ENGAGEMENT EXECUTIVE Ot 414.00 CORON ATHEROSCLER NOS TYPE VESSEL, NATIV 07/13/2019 BAIMA, APRIL L PROVIDER ENGAGEMENT EXECUTIVE Ot 272.4 HYPERLIPIDEMIA NEC/NOS 07/13/2019 LESLIE FERRARI, VENKAT Wiley Ot C61 MALIGNANT NEOPLASM OF PROSTATE 07/13/2019 BAIMA, APRIL L PROVIDER ENGAGEMENT EXECUTIVE Ot E78.5 HYPERLIPIDEMIA, UNSPECIFIED 07/13/2019 BAIMA, APRIL L PROVIDER ENGAGEMENT EXECUTIVE Ot I25.10 ATHSCL HEART DISEASE OF [place] CORONARY 07/13/2019 BAIMA, APRIL L PROVIDER ENGAGEMENT EXECUTIVE Ot E78.5 HYPERLIPIDEMIA, UNSPECIFIED 07/13/2019 BAIMA, APRIL L PROVIDER ENGAGEMENT EXECUTIVE Ot I25.10 ATHSCL HEART DISEASE OF [place] CORONARY 07/13/2019 VICTOR M GREGORY, ALI FACP CCDS Ot E78.4 OTHER HYPERLIPIDEMIA 07/13/2019 VICTOR M GREGORYC, ALI FACP CCDS Ot I10 ESSENTIAL (PRIMARY) HYPERTENSION 07/13/2019 VICTOR M GREGORYC, ALI FACP CCDS Ot I25.10 ATHSCL HEART DISEASE OF [place] CORONARY 07/13/2019 VICTOR M FERRARI FACC, ALI FACP CCDS Ot I65.23 OCCLUSION AND STENOSIS OF BILATERAL [place] 07/13/2019 VICTOR M FERRARI FACC, ALI FACP CCDS Ot Z72.0 TOBACCO USE 07/13/2019 LARRY KUO DO Ot M25.531 PAIN IN RIGHT WRIST 07/13/2019 [...] Ot R59.0 LOCALIZED ENLARGED LYMPH NODES 07/13/2019 [facility] Wiley Ot M89.9 DISORDER OF BONE, UNSPECIFIED 07/13/2019 GELLENDER DO, LARRY Wiley Ot R59.0 LOCALIZED ENLARGED LYMPH NODES 07/13/2019 GELLENDER DO, LARRY Wiley Ot R22.1 LOCALIZED SWELLING, MASS AND LUMP, NECK 07/13/2019 [facility], LARRY Wiley Ot C83.30 DIFFUSE LARGE B-CELL LYMPHOMA, UNSPECIFI 07/13/2019 [facility], LARRY Saurabh Ot J35.9 CHRONIC DISEASE OF TONSILS AND ADENOIDS, 07/13/2019 [facility], LARRY Wiley Ot R59.0 LOCALIZED ENLARGED LYMPH NODES 07/13/2019 ROXI DUNLAP Ot C85.90 NON-[place]GKIN LYMPHOMA, UNSPECIFIED, UNSPE 07/13/2019 ROXI DUNLAP Ot Z01.810 ENCOUNTER FOR PREPROCEDURAL CARDIOVASCUL 07/13/2019 APRIL BARRON PROVIDER ENGAGEMENT EXECUTIVE Ot E78.5 HYPERLIPIDEMIA, UNSPECIFIED 07/13/2019 APRIL BARRON L PROVIDER ENGAGEMENT EXECUTIVE Ot I 10 ESSENTIAL (PRIMARY) HYPERTENSION 07/13/2019 APRIL BARRON PROVIDER ENGAGEMENT EXECUTIVE Ot I25.10 ATHSCL HEART DISEASE OF [place] CORONARY 07/13/2019 APRIL BARRON PROVIDER ENGAGEMENT EXECUTIVE Ot I77.9 DISORDER OF ARTERIES AND ARTERIOLES, UNS 07/13/2019 JUSTIN ARCEO PROVIDER ENGAGEMENT EXECUTIVE Ot C83.38 DIFFUSE LARGE B-CELL LYMPHOMA, LYMPH NOD 07/13/2019 ROXI DUNLAP Ot C83.38 DIFFUSE LARGE B-CELL LYMPHOMA, LYMPH NOD 07/13/2019 ROXI DUNLAP Ot Z01.89 ENCOUNTER FOR OTHER SPECIFIED SPECIAL EX 07/13/2019 APRIL BARRON PROVIDER ENGAGEMENT EXECUTIVE Ot E78.4 OTHER HYPERLIPIDEMIA 07/13/2019 APRIL BARRON L PROVIDER ENGAGEMENT EXECUTIVE Ot I 10 ESSENTIAL (PRIMARY) HYPERTENSION 07/13/2019 APRIL BARRON PROVIDER ENGAGEMENT EXECUTIVE Ot I25.10 ATHSCL HEART DISEASE OF [place] CORONARY 07/13/2019 APRIL BARRON PROVIDER ENGAGEMENT EXECUTIVE Ot I65.23 OCCLUSION AND STENOSIS OF BILATERAL [place] 07/13/2019 VICTOR M FERRARI [facility], ALI FACP CCDS Ot E78.4 OTHER HYPERLIPIDEMIA 07/13/2019 VICTOR M FERRARI [facility], ALI FACP CCDS Ot I10 ESSENTIAL (PRIMARY) HYPERTENSION 07/13/2019 VICTOR M FERRARI [facility], ALI FACP CCDS Ot I25.10 ATHSCL HEART DISEASE OF [place] CORONARY 07/13/2019 VICTOR M FERRARI [facility], ALI FACP CCDS Ot I65.23 OCCLUSION AND STENOSIS OF BILATERAL [place] 07/13/2019 VICTOR M GREGORY, ALI FACP CCDS Ot K76.9 LIVER DISEASE, UNSPECIFIED 07/13/2019 NATASHA LEAHY MD, Ot C83.38 DIFFUSE LARGE [...] SPECIFIED DISEASES OF LIVER 07/13/2019 APRIL BARRON PROVIDER ENGAGEMENT EXECUTIVE Ot E78.4 OTHER HYPERLIPIDEMIA 07/13/2019 APRIL BARRON PROVIDER ENGAGEMENT EXECUTIVE Ot I25.10 ATHSCL HEART DISEASE OF [place] CORONARY 07/13/2019 JUSTIN ARCEO PROVIDER ENGAGEMENT EXECUTIVE Ot C83.38 DIFFUSE LARGE B-CELL LYMPHOMA, LYMPH NOD 07/13/2019 JUSTIN ARCEO PROVIDER ENGAGEMENT EXECUTIVE Ot K57.30 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 OR AB 07/13/2019 JUSTIN ARCEO PROVIDER ENGAGEMENT EXECUTIVE Ot R59.0 LOCALIZED ENLARGED LYMPH NODES 07/13/2019 BAIMA, APRIL L PROVIDER ENGAGEMENT EXECUTIVE Ot E78.5 HYPERLIPIDEMIA, UNSPECIFIED 07/13/2019 BAIMAGEN, APRIL L PROVIDER ENGAGEMENT EXECUTIVE Ot I25.10 ATHSCL HEART DISEASE OF [place] CORONARY 07/13/2019 BAIMAGEN, APRIL L PROVIDER ENGAGEMENT EXECUTIVE Ot E78.5 HYPERLIPIDEMIA, UNSPECIFIED 07/13/2019 BAIMA, APRIL L PROVIDER ENGAGEMENT EXECUTIVE Ot I25.10 ATHSCL HEART DISEASE OF [place] CORONARY 07/13/2019 ROXI DUNLAP N Ot C83.38 DIFFUSE LARGE B-CELL LYMPHOMA, LYMPH NOD 07/13/2019 BAIMAGEN, APRIL L PROVIDER ENGAGEMENT EXECUTIVE Ot E78.5 HYPERLIPIDEMIA, UNSPECIFIED 07/13/2019 BAIMA, APRIL L PROVIDER ENGAGEMENT EXECUTIVE Ot I25.10 ATHSCL HEART DISEASE OF [place] CORONARY 07/13/2019 ROXI DUNLAP N Ot C83.30 DIFFUSE LARGE B-CELL LYMPHOMA, UNSPECIFI 07/13/2019 ROXI DUNLAP N Ot E78.5 HYPERLIPIDEMIA, UNSPECIFIED 07/13/2019 ROXI DUNLAP Pierre Ot I10 ESSENTIAL (PRIMARY) HYPERTENSION 07/13/2019 ROXI DUNLAP N Ot I25.10 ATHSCL HEART DISEASE OF [place] CORONARY 07/13/2019 ROXI DUNLAP Pierre Ot R59.0 LOCALIZED ENLARGED LYMPH NODES 07/13/2019 ROXI DUNLAP N Ot R97.20 ELEVATED PROSTATE SPECIFIC ANTIGEN [PSA] 07/13/2019 ROXI DUNLAP Pierre Ot Z92.21 PERSONAL HISTORY OF ANTINEOPLASTIC CHEMO 07/13/2019 BEATRICE APRIL L PROVIDER ENGAGEMENT EXECUTIVE Ot 272.4 HYPERLIPIDEMIA NEC/NOS 07/13/2019 KASANDRAMA, APRIL L PROVIDER ENGAGEMENT EXECUTIVE Ot 414.00 CORON ATHEROSCLER NOS TYPE VESSEL, NATIV 07/13/2019 BAIMA, APRIL L PROVIDER ENGAGEMENT EXECUTIVE Ot 447.9 ARTERIAL DISEASE NOS 07/13/2019 LARRY KUO DO A Ot 241.0 NONTOX UNINODULAR GOITER 07/13/2019 BAIMA, APRIL L PROVIDER ENGAGEMENT EXECUTIVE Ot 272.4 HYPERLIPIDEMIA NEC/NOS 07/13/2019 BAIMA, APRIL L PROVIDER ENGAGEMENT EXECUTIVE Ot 414.00 CORON ATHEROSCLER NOS TYPE VESSEL, NATIV 07/13/2019 BAIMA, APRIL L PROVIDER ENGAGEMENT EXECUTIVE Ot 272.4 HYPERLIPIDEMIA NEC/NOS 07/13/2019 LESLIE FERRARI, VENKAT Wiley Ot C61 MALIGNANT NEOPLASM OF PROSTATE 07/13/2019 BEATRICE, APRIL L PROVIDER ENGAGEMENT EXECUTIVE Ot E78.5 HYPERLIPIDEMIA, UNSPECIFIED 07/13/2019 BAIAPRIL US PROVIDER ENGAGEMENT EXECUTIVE Ot I25.10 ATHSCL HEART DISEASE OF [place] CORONARY 07/13/2019 BAIAPRIL US PROVIDER ENGAGEMENT EXECUTIVE Ot E78.5 HYPERLIPIDEMIA, UNSPECIFIED 07/13/2019 BAIAPRIL US PROVIDER ENGAGEMENT EXECUTIVE Ot I25.10 ATHSCL HEART DISEASE OF [place] CORONARY 07/13/2019 VICTOR M FERRARI FAC, ALI FACP CCDS Ot E78.4 OTHER HYPERLIPIDEMIA 07/13/2019 VICTOR M FERRARI FAC, ALI FACP CCDS Ot I10 ESSENTIAL (PRIMARY) HYPERTENSION 07/13/2019 VICTOR M FERRARI FAC, ALI FACP CCDS Ot I25.10 ATHSCL HEART DISEASE OF [place] CORONARY 07/13/2019 VICTOR M FERRARI FAC, ALI FACP CCDS Ot I65.23 OCCLUSION AND STENOSIS OF BILATERAL [place] 07/13/2019 VICTOR M FERRARI FACC, ALI FACP CCDS Ot Z72.0 TOBACCO USE 07/13/2019 [facility] L[facility] Wiley Ot M25.531 PAIN IN RIGHT WRIST 07/13/2019 [facility] LARRY Wiley Ot E04.1 NONTOXIC SINGLE THYROID NODULE 07/13/2019 [facility] LARRY Wiley Ot R22.1 LOCALIZED SWELLING, MASS AND LUMP, NECK 07/13/2019 [facility] DOLARRY Ot M89.9 DISORDER OF BONE, UNSPECIFIED 07/13/2019 GELLENDER DO, LARRY Wiley Ot R22.1 LOCALIZED SWELLING, MASS AND LUMP, NECK 07/13/2019 GELLENDER DOLARRY Ot R59.0 LOCALIZED ENLARGED LYMPH NODES 07/13/2019 [facility] Ot M89.9 DISORDER OF BONE, UNSPECIFIED 07/13/2019 GELLENDER DOLARRY Ot R59.0 LOCALIZED ENLARGED LYMPH NODES 07/13/2019 [facility] D[facility] Ot R22.1 LOCALIZED SWELLING, MASS AND LUMP, NECK 07/13/2019 [facility] Ot C83.30 DIFFUSE LARGE B-CELL LYMPHOMA, UNSPECIFI 07/13/2019 GELLENDER DOLARRY Ot J35.9 CHRONIC DISEASE OF TONSILS AND ADENOIDS, 07/13/2019 GELLENDER DOLARRY Ot R59.0 LOCALIZED ENLARGED LYMPH NODES 07/13/2019 ROXI DUNLAP Ot C85.90 NON-[place] LYMPHOMA, UNSPECIFIED, UNSPE 07/13/2019 GERMÁN, ROXI Jay Ot Z01.810 ENCOUNTER FOR PREPROCEDURAL CARDIOVASCUL 07/13/2019 APRIL BARRON PROVIDER ENGAGEMENT EXECUTIVE Ot E78.5 HYPERLIPIDEMIA, UNSPECIFIED 07/13/2019 APRIL BARRON L PROVIDER ENGAGEMENT EXECUTIVE Ot I 10 ESSENTIAL (PRIMARY) HYPERTENSION 07/13/2019 APRIL BARRON L PROVIDER ENGAGEMENT EXECUTIVE Ot I25.10 ATHSCL HEART DISEASE OF [place] CORONARY 07/13/2019 APRIL BARRON L PROVIDER ENGAGEMENT EXECUTIVE Ot I77.9 DISORDER OF ARTERIES AND ARTERIOLES, UNS 07/13/2019 JUSTIN ARCEO PROVIDER ENGAGEMENT EXECUTIVE Ot C83.38 DIFFUSE LARGE B-CELL LYMPHOMA, LYMPH NOD 07/13/2019 ROXI DUNLAP Ot C83.38 DIFFUSE LARGE B-CELL LYMPHOMA, LYMPH NOD 07/13/2019 ROXI DUNLAP Ot Z01.89 ENCOUNTER FOR OTHER SPECIFIED SPECIAL EX 07/13/2019 APRIL BARRON L PROVIDER ENGAGEMENT EXECUTIVE Ot E78.4 OTHER HYPERLIPIDEMIA 07/13/2019 APRIL BARRON L PROVIDER ENGAGEMENT EXECUTIVE Ot I 10 ESSENTIAL (PRIMARY) HYPERTENSION 07/13/2019 APRIL BARRON L PROVIDER ENGAGEMENT EXECUTIVE Ot I25.10 ATHSCL HEART DISEASE OF [place] CORONARY 07/13/2019 APRIL BARRON L PROVIDER ENGAGEMENT EXECUTIVE Ot I65.23 OCCLUSION AND STENOSIS OF BILATERAL [place] 07/13/2019 VITCOR M FERRARI FAC, ALI FACP CCDS Ot E78.4 OTHER HYPERLIPIDEMIA 07/13/2019 VICTOR M FERRARI FACC, ALI FACP CCDS Ot I10 ESSENTIAL (PRIMARY) HYPERTENSION 07/13/2019 VICTOR M FERRARI FAC, ALI FACP CCDS Ot I25.10 ATHSCL HEART DISEASE OF [place] CORONARY 07/13/2019 VICTOR M FERRARI FACC, ALI [...] LOCALIZED ENLARGED LYMPH NODES 07/13/2019 ROXI DUNLAP Pierre Ot M51.34 OTHER INTERVERTEBRAL DISC DEGENERATION, 07/13/2019 ROXI DUNLAP Pierre Ot Z85.72 PERSONAL HISTORY OF NON-[place] LYMPHOMA 07/13/2019 ROXI DUNLAP Pierre Ot Z98.890 OTHER SPECIFIED POSTPROCEDURAL STATES 07/13/2019 ROXI DUNLAP Pierre Ot 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, LYMPH NODES OF HEA 07/13/2019 ROXI DUNLAP Pierre Ot K76.89 OTHER SPECIFIED DISEASES OF LIVER 07/13/2019 APRIL BARRON L PROVIDER ENGAGEMENT EXECUTIVE Ot E78.4 OTHER HYPERLIPIDEMIA 07/13/2019 BEATRICE APRIL L PROVIDER ENGAGEMENT EXECUTIVE Ot I25.10 ATHSCL HEART DISEASE OF [place] CORONARY 07/13/2019 JUSTIN ARCEO PROVIDER ENGAGEMENT EXECUTIVE Ot C83.38 DIFFUSE LARGE B-CELL LYMPHOMA, LYMPH NOD 07/13/2019 JUSTIN ARCEO PROVIDER ENGAGEMENT EXECUTIVE Ot K57.30 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 OR AB 07/13/2019 JUSTIN ARCEO S PROVIDER ENGAGEMENT EXECUTIVE Ot R59.0 LOCALIZED ENLARGED LYMPH NODES 07/13/2019 HOLLIS BARRONHER L PROVIDER ENGAGEMENT EXECUTIVE Ot E78.5 HYPERLIPIDEMIA, UNSPECIFIED 07/13/2019 BEATRICE APRIL L PROVIDER ENGAGEMENT EXECUTIVE Ot I25.10 ATHSCL HEART DISEASE OF [place] CORONARY 07/13/2019 APRIL BARRON PROVIDER ENGAGEMENT EXECUTIVE Ot E78.5 HYPERLIPIDEMIA, UNSPECIFIED 07/13/2019 BEATRICE APRIL L PROVIDER ENGAGEMENT EXECUTIVE Ot I25.10 ATHSCL HEART DISEASE OF [place] CORONARY 07/13/2019 GERMÁN ROXI Jay Ot C83.38 DIFFUSE LARGE B-CELL LYMPHOMA, LYMPH NOD 07/13/2019 HOLLIS BARRONHER L PROVIDER ENGAGEMENT EXECUTIVE Ot E78.5 HYPERLIPIDEMIA, UNSPECIFIED 07/13/2019 BAIMA APRIL L PROVIDER ENGAGEMENT EXECUTIVE Ot I25.10 ATHSCL HEART DISEASE OF [place] CORONARY 07/13/2019 GERMÁN, ROXI N Ot C83.30 DIFFUSE LARGE B-CELL LYMPHOMA, UNSPECIFI 07/13/2019 GERMÁN ROXI Jay Ot E78.5 HYPERLIPIDEMIA, UNSPECIFIED 07/13/2019 GERMÁN, ROXI Jay Ot I10 ESSENTIAL (PRIMARY) HYPERTENSION 07/13/2019 ROXI DUNLAP Ot I25.10 ATHSCL HEART DISEASE OF [place] CORONARY 07/13/2019 GERMÁN, VLADIMIRAN N Ot R59.0 LOCALIZED ENLARGED LYMPH NODES 07/13/2019 GERMÁN, BOBAN N Ot R97.20 ELEVATED PROSTATE SPECIFIC ANTIGEN [PSA] 07/13/2019 GERMÁN, BOBAN N Ot Z92.21 PERSONAL HISTORY OF ANTINEOPLASTIC CHEMO 07/14/2019 GERMÁN, BOBAN N Ot C83.38 DIFFUSE LARGE B-CELL LYMPHOMA, LYMPH NOD 07/30/2019 GERMÁN, BOBAN N Ot C83.30 DIFFUSE LARGE B-CELL LYMPHOMA, UNSPECIFI 07/30/2019 GERMÁN, BOBAN N Ot E78.5 HYPERLIPIDEMIA, UNSPECIFIED 07/30/2019 GERMÁN, BOBAN N Ot I10 ESSENTIAL (PRIMARY) HYPERTENSION 07/30/2019 GERMÁN, BOBAN N Ot I25.10 ATHSCL HEART DISEASE OF [place] CORONARY 07/30/2019 GERMÁN, BOBAN N Ot R59.0 LOCALIZED ENLARGED LYMPH NODES 07/30/2019 GERMÁN, BOBAN N Ot R97.20 ELEVATED PROSTATE SPECIFIC ANTIGEN [PSA] 07/30/2019 GERMÁN, ROXI N Ot Z92.21 PERSONAL HISTORY OF ANTINEOPLASTIC CHEMO 08/03/2019 GERMÁN, BOBAN N Ot C83.38 DIFFUSE LARGE B-CELL LYMPHOMA, LYMPH NOD 08/04/2019 GERMÁN, BOBAN N Ot C83.30 DIFFUSE LARGE B-CELL LYMPHOMA, UNSPECIFI 08/04/2019 GERMÁN, BOBAN N Ot E78.5 HYPERLIPIDEMIA, UNSPECIFIED 08/04/2019 GERMÁN, BOBAN N Ot I10 ESSENTIAL (PRIMARY) HYPERTENSION 08/04/2019 GERMÁN, BOBAN N Ot I25.10 ATHSCL HEART DISEASE OF [place] CORONARY 08/04/2019 GERMÁN, BOBAN N Ot R59.0 [...] Ot I25.10 ATHSCL HEART DISEASE OF [place] CORONARY 08/23/2019 GERMÁN, BOBAN N Ot R59.0 [...] Ot I25.10 ATHSCL HEART DISEASE OF [place] CORONARY 10/11/2019 GERMÁN, BOBAN N Ot R59.0 [...] Ot I25.10 ATHSCL HEART DISEASE OF [place] CORONARY 10/12/2019 GERMÁN, BOBAN N Ot R59.0 [...] Ot I25.10 ATHSCL HEART DISEASE OF [place] CORONARY 11/17/2019 ROXI DUNLAP N Ot R59.0 LOCALIZED ENLARGED LYMPH NODES 11/17/2019 GERMÁN ROXI N Ot R97.20 ELEVATED PROSTATE SPECIFIC ANTIGEN [PSA] 11/17/2019 GERMÁN ROXI N Ot Z92.21 PERSONAL HISTORY OF ANTINEOPLASTIC CHEMO 11/24/2019 GERMÁN ROXI N Ot C83.38 DIFFUSE LARGE B-CELL LYMPHOMA, LYMPH NOD 12/14/2019 GERMÁN, ROXI N Ot C83.38 DIFFUSE LARGE B-CELL LYMPHOMA, LYMPH NOD 12/15/2019 LOWELL DO, SIMIN D Ot R59. 0 LOCALIZED ENLARGED LYMPH NODES 12/15/2019 LOWELL DO, SIMIN D Ot Z85. 72 PERSONAL HISTORY OF NON-[place] LYMPHOMA 12/16/2019 GERMÁN ROXI N Ot C83.30 DIFFUSE LARGE B-CELL LYMPHOMA, UNSPECIFI 12/16/2019 GERMÁN, BOBAN N Ot E78.5 HYPERLIPIDEMIA, UNSPECIFIED 12/16/2019 GERMÁN, BOBAN N Ot I10 ESSENTIAL (PRIMARY) HYPERTENSION 12/16/2019 GERMÁN VLADIMIRAN N Ot I25.10 ATHSCL HEART DISEASE OF [place] CORONARY 12/16/2019 VLADIMIR DUNLAPSEBASTIEN N Ot R59.0 LOCALIZED ENLARGED LYMPH NODES 12/16/2019 GERMÁN ROXI N Ot R97.20 ELEVATED PROSTATE SPECIFIC ANTIGEN [PSA] 12/16/2019 GERMÁN ROXI N Ot Z92.21 PERSONAL HISTORY OF ANTINEOPLASTIC CHEMO 12/18/2019 [facility], SIMIN D Ot R59. 0 LOCALIZED ENLARGED LYMPH NODES 12/18/2019 [facility], SIMIN D Ot Z85. 72 PERSONAL HISTORY OF NON-[place] LYMPHOMA 12/21/2019 GERMÁN ROXI N Ot C83.30 DIFFUSE LARGE B-CELL LYMPHOMA, UNSPECIFI 12/21/2019 GERMÁN, VLADIMIRAN N Ot E78.5 HYPERLIPIDEMIA, UNSPECIFIED 12/21/2019 GERMÁN, BOBAN N Ot I10 ESSENTIAL (PRIMARY) HYPERTENSION 12/21/2019 GERMÁN, BOBAN N Ot I25.10 ATHSCL HEART DISEASE OF [place] CORONARY 12/21/2019 GERMÁN VLADIMIRAN N Ot R59.0 LOCALIZED ENLARGED LYMPH NODES 12/21/2019 GERMÁN ROXI N Ot R97.20 ELEVATED PROSTATE SPECIFIC ANTIGEN [PSA] 12/21/2019 GERMÁN ROXI N Ot Z92.21 PERSONAL HISTORY OF ANTINEOPLASTIC CHEMO Procedures Code Description Performed By Per formed [...] ragweed IgE antibody assay 167 U/L 125-220 Coronavirus SARS-CoV-2 SO 2019 - 0 13:00 Coronavirus Ab [Units/volume] in Serum Negative Negative Encounters ACCT No. Visit Date/Time Discharge Status Pt. Type Provider Facility Loc./Unit Complaint [id number] 12/17/2019 09:22:00 14:52:00 DIS Outpatient SIMIN VOGEL DO [facility] PREOP LYMPHOMA [id number] 12/16/2019 13:14:00 23:59:59 CLS Outpatient ROXI DUNLAP [facility] ONC [id number] 12/10/2019 08:00:00 23:59:59 CLS Outpatient VOGEL SIMIN CARTER [facility] RAD LEFT AXILLARY NODE [id number] 12/06/2019 08:55:00 16:00:00 DIS Outpatient VOGEL SIMIN CARTER [facility] PREOP LEFT AXILLARY EXCISION [id number] 11/23/2019 07:42:00 23:59:59 CLS Outpatient ROXI DUNLAP [facility] RAD DIFFUSE LARGE B CELL LY MPHOMA [id number] 08/09/2019 14:11:00 020 00:01:00 DIS Outpatient ROXI DUNLAP [facility] ONC [id number] 07/13/2019 13:38:00 019 23:59:59 CLS Outpatient ROIX DUNLAP [facility] RAD ENLARGED LYMPH NODES IN ARMPIT [id number] 05/06/2019 09:12:00 10:41:00 DIS Outpatient ROXI DUNLAP [facility] ONC [id number] 07/05/2019 12:23:00 23:59:59 CLS Preadmit LESLIE FERRARI, VENKAT [place] [facility] CARD PROSTATE CANCER [id number] 05/11/2019 07:50:00 23:59:59 CLS Outpatient APRIL BARRON [facility] LAB I25.10 [id number] 05/03/2019 09:12:00 23:59:59 CLS Outpatient ROXI DUNLAP [facility] RAD DIFFUSE LARGE B CELL LY MPHOMA [id number] 02/08/2019 13:49:00 00:01:00 DIS Outpatient ROXI DUNLPA [facility] ONC [id number] 11/11/2018 07:46:00 23:59:59 CLS Outpatient APRIL BARRON [facility] LAB I25.10 E78.2 [id number] 10/26/2018 09:21:00 00:01:00 DIS Outpatient ROXI DUNLAP [facility] ONC [id number] 08/07/2018 07:51:00 10:35:00 DIS Outpatient BEAN PEOPLES MD [facility] SDC NON [place] LYMPHOMA [id number] 08/03/2018 06:17:00 13:35:00 DIS Outpatient BEAN PEOPLES MD [facility] PREOP PORT REMOVAL [id number] 07/29/2018 09:06:00 12:25:00 DIS Outpatient NATASHA LEAHY MD, [facility] REHAB BACK PAIN;THORACIC DDD [id number] 07/24/2018 10:57:00 00:01:00 DIS Outpatient ROXI DUNLAP V [facility] ONC [id number] 07/24/2018 10:48:00 018 23:59:59 CLS Outpatient JUSTIN ARCEO [facility] RAD DIFFUSE LARGE B CELL LYMPHOMA [id number] 05/05/2018 08:08:00 018 23:59:59 CLS Outpatient APRIL BARRON [facility] LAB E78.4 [id number] 03/19/2018 09:06:00 018 00:01:00 DIS Outpatient GERMÁN ROXI [place] [facility] ONC [id number] 02/12/2018 08:46:00 018 09:04:00 DIS Outpatient GERMÁN ROXI Jay V [facility] ONC [id number] 02/05/2018 08:51:00 018 23:59:59 CLS Outpatient GERMÁN ROXI [place] [facility] RAD Z01.89 RESTAGE NEOPLASM [id number] 11/13/2017 08:42:00 018 00:01:00 DIS Outpatient GERMÁN ROXI [place] [facility] ONC [id number] 11/18/2017 08:03:00 018 23:59:59 CLS Outpatient APRIL BARRON [facility] LAB I25.10 E78.4 [id number] 11/15/2017 08:33:00 018 23:59:59 CLS Outpatient ROXI DUNLAP [facility] RAD M54.9 MID BACK PAIN [id number] 09/01/2017 09:34:00 018 12:15:00 DIS Outpatient BEAN PEOPLES MD [facility] ENDO EPIGASTRIC PAIN/GERD [id number] 08/26/2017 05:42:00 018 12:53:00 DIS Outpatient BEAN PEOPLES MD [facility] PREOP EGD [id number] 08/13/2017 08:54:00 018 15:47:00 DIS Outpatient NATASHA LEAHY MD, V [facility] ONC [id number] 08/13/2017 10:01:00 018 23:59:59 CLS Outpatient NATASHA LEAHY MD, V [facility] RAD C83.38 DIFFUSE LARGE B CELL LYMPHOMA [id number] 05/20/2017 06:46:00 017 11:30:00 DIS Outpatient VICTOR M FERRARI FACKailash, ADONAY ANDRES CC DS Via [facility] ABD DISCOM ORT,CAD [id number] 04/28/2017 07:42:00 017 23:59:59 CLS Outpatient VICTOR M FERRARI FACC, ADONAY ANDRES CC DS Via [facility] RAD R10.13 [id number] 04/10/2017 09:06:00 017 00:01:00 DIS Outpatient ROXI DUNLAP V [facility] ONC [id number] 03/17/2017 07:35:00 017 23:59:59 CLS Outpatient APRIL BARRONP Via [facility] LAB I24.10,I65.23,E 78.4,I10 [id number] 02/27/2017 09:51:00 017 00:01:00 DIS Outpatient ROXI DUNLAP V [facility] ONC [id number] 02/24/2017 11:00:00 017 23:59:59 CLS Outpatient ROXI DUNLAP V [facility] RAD DIFFUSE LARGE B CELL LY MPHOMA [id number] 12/04/2016 09:37:00 017 00:01:00 DIS Outpatient ROXI DUNLAP V [facility] ONC [id number] 11/26/2016 08:35:00 017 23:59:59 CLS Outpatient JUSTIN ARCEO PROVIDER ENGAGEMENT EXECUTIVE Via [facility] RAD DIFFUSE LARGE B CELL LYMPHOMA [id number] 10/22/2016 18:26:00 017 14:32:00 DIS Inpatient ARLENLENLARRY HENDERSON DO Via [facility] 4TH NEUTROPENIC FEV ER,TOOTH ABSCESS,NON HODGKINS LYMPH [id number] 09/18/2016 08:59:00 017 23:59:59 CLS Outpatient KASANDRAMAGEN APRILHER Licha BEGUM [facility] LAB [id number] 09/06/2016 07:41:00 017 23:59:59 CLS Outpatient ROXI DUNLAP V [facility] CARD Z01.810 [id number] 09/05/2016 10:25:00 017 15:30:00 DIS Outpatient BEAN PEOPLES MD Via [facility] LYMPHOMA [id number] 09/04/2016 05:51:00 017 13:58:00 DIS Outpatient BEAN PEOPLES MD Via [facility] PREOP LYMPHOMA [id number] 09/03/2016 08:52:00 017 23:59:59 CLS Outpatient LARRY KUO DO [facility] RAD LYMPHOMA [id number] 08/24/2016 21:25:00 017 22:58:00 DIS Emergency OLGA LIDIA GARCIA APRN [facility] ER L LEG SWELLING [id number] 08/21/2016 11:22:00 017 16:03:00 DIS Outpatient BEAN PEOPLES MD Via [facility] SDC LYMPHADENOTATHY [id number] 08/15/2016 11:29:00 017 11:52:00 DIS Outpatient BEAN PEOPLES MD [facility] PREOP LYMPHADENOTATHY [id number] 08/13/2016 07:05:00 017 23:59:59 CLS Outpatient LARRY KUO DO [facility] CARD SCLEROTIC,LESALEXSANDER N ON T4 AND T2 [id number] 08/12/2016 13:08:00 017 23:59:59 CLS Outpatient LARRY KUO DO Via [facility] RAD RIGHT SIDE OF N NOLBERTO SWOLLEN [id number] 07/18/2016 08:14:00 016 23:59:59 CLS Outpatient SHIELA CARTER LARRY Wiley [facility] RAD COMPLICATED CYS TIC BESIUM [id number] 07/11/2016 10:39:00 016 23:59:59 CLS Outpatient SHIELA CARTER LARRY Wiley [facility] RAD CYST IN NECK [id number] 07/01/2016 11:52:00 016 23:59:59 CLS Outpatient SHIELA CARTER LARRY Saurabh [facility] RAD PAIN IN RIGHT W RIST [id number] 05/07/2016 06:59:00 016 23:59:59 CLS Outpatient VICTOR M FERRARI FACC, ADONAY ANDRES CC DS [facility] CARD CAD,HLP,HTN ,CAROTID ARTERIAL DISEASE [id number] 03/15/2016 07:14:00 016 23:59:59 CLS Outpatient BAIAPRIL US L PROVIDER ENGAGEMENT EXECUTIVE [facility] LAB CAD,HYPERLIPIDE DEEJAY [id number] 09/15/2015 07:14:00 016 23:59:59 CLS Outpatient BEATRICE APRIL L PROVIDER ENGAGEMENT EXECUTIVE [facility] LAB CAD,HLP [id number] 06/15/2015 11:36:00 015 23:59:59 CLS Outpatient VENKAT NELSON MD [facility] CARD PROSTATE CA [id number] 03/17/2015 07:07:00 015 23:59:59 CLS Outpatient BAIMAGEN APRIL L PROVIDER ENGAGEMENT EXECUTIVE [facility] LAB HYPERLIPIDEMIA [id number] 09/01/2014 07:04:00 015 23:59:59 CLS Outpatient BAIMAGEN APRIL L PROVIDER ENGAGEMENT EXECUTIVE [facility] LAB CAD,HLP [id number] 05/17/2014 09:12:00 014 23:59:59 CLS Outpatient LARRY KUO DO [facility] RAD THYROID NODULE RT SIDE [id number] 03/11/2014 07:01:00 014 23:59:59 CLS Outpatient BAIMAPARIL L PROVIDER ENGAGEMENT EXECUTIVE [facility] LAB CAD,CAROTID ART ERIAL DISEASE,HYPERLIPIDEMIA [id number] 08/02/2013 07:11:00 014 23:59:59 CLS Outpatient BAIMA, APRIL L PROVIDER ENGAGEMENT EXECUTIVE [facility] LAB CAD,HYPERLIPIDE DEEJAY [id number] 04/13/2013 07:43:00 013 23:59:59 CLS Outpatient BAIMA, APRIL L PROVIDER ENGAGEMENT EXECUTIVE [facility] LAB HYPERLIPIDEMIA, STATIN TRX [id number] 03/05/2013 07:09:00 013 23:59:59 CLS Outpatient BAIMA, APRIL L PROVIDER ENGAGEMENT EXECUTIVE [facility] LAB CAD,HYPERTENSION,HYPERLIPIDEMIA,STATIN [place] [id number] 12/31/2012 07:12:00 013 23:59:59 CLS Outpatient VICTOR M FERRARI FACC, ADONAY ANDRES CC DS [facility] LAB CAD,STATIN [place],HYPERLIPIDEMIA [id number] 12/23/2019 12:55:00 P EN Preadmit SIMIN VOGEL DO Via [facility] SDC LYMPHOMA [id number] 03/17/2015 07:07:00 Document Registration [id number] 03/17/2015 07:07:00 Document Registration [id number] 03/17/2015 07:07:00 Document Registration [id number] 03/17/2015 07:07:00 Document Registration [id number] 03/17/2015 07:07:00 Document Registration [id number] 03/17/2015 07:07:00 Document Registration [id number] 03/17/2015 07:07:00 Document Registration [id number] 03/17/2015 07:07:00 Document Registration [id number] 10/26/2012 07:43:00 Document Registration [id number] 10/05/2012 10:15:00 Document Registration [id number] 06/23/2012 11:38:00 Document Registration [id number] 06/04/2012 13:53:00 Document Registration [id number] 05/28/2012 10:32:00 Document Registration [id number] 05/25/2012 06:56:00 Document Registration [id number] 05/22/2012 08:15:00 Document Registration [id number] 04/16/2012 07:26:00 Document Registration [id number] 01/07/2011 07:33:00 Document Registration [id number] 12/06/2010 07:35:00 Document Registration [id number] 10/08/2010 07:50:00 Document Registration [id number] 10/08/2010 07:49:00 Document Registration [id number] 08/30/2010 07:43:00 Document Registration [id number] 08/02/2010 08:11:00 Document Registration [id number] 07/06/2010 12:09:00 Document Registration [id number] 04/12/2010 08:08:00 Document Registration [id number] 04/04/2010 16:27:00 Document Registration [id number] 03/26/2010 09:52:00 Document Registration [id number] 03/21/2010 15:49:00 Document Registration [id number] 12/12/2009 13:34:00 Document Registration
--- NOTE | 2019-12-23 11:49 | Discharge Inst-Simple/Standard ---
Discharge Inst-Standard Patient Instructions/Follow Up Plan of Care/Instructions/FU: 2 weeks [place] Activity as Tolerated: No Discharge Diet: Regular Diet Other Inst to Patient Follow up Appt: Make appointment for 2 week. Instructions: No lifting greater than 10 pounds. No strenuous activity. May shower in 24 hours, no tub bath or soaking. Use incentive spirometer at home as directed. No Smoking Skin/Wound Care: You have special glue over your incision that will fall off on it's own. Ice pack on 15 min and off 30 min and repeat to reduce swelling and discomfort for first 48 hours. Symptoms to Report: Appetite Changes, Extremity Discoloration, Numbness/Tingling, Swelling Increased, Bleeding Excessive, Eyesight Changes, Pain Increased, Urine Color Change, Constipation(Persistent), Fever over 101 degree F, Pain/Pressure in chest, Urinating Difficulty, Cough Up/Vomit Blood, Heart Beat Irreg/Pounding, Pain/Pressure in jaw, Vaginal Bleeding Increase, Cramps in feet or legs, Lightheadedness, Pain/Pressure in shoulder, Diarrhea(Persistent), Memory Changes Suddenly, Questions/Concerns, Weight gain consecutive days, Dizziness/Fainting, Nausea/Vomiting, Shortness of Breath, Weight gain over 2 pounds If questions or concerns contact your physician Or seek help at emergency department. SIMIN VOGEL DO December 23, 2019 11:49
--- NOTE | 2019-12-23 11:50 | Progress Note-Post Operative ---
Post-Operative Progess Note Surgeon (s)/Biochemistry Teacher (s) Surgeon SIMIN VOGEL DO Biochemistry Teacher: na Pre-Operative Diagnosis lymphoma Post-Operative Diagnosis same Procedure & Operative Findings Date of Procedure 12/23/19 Procedure Performed/Findings PROCEDURE: Right internal jugular port placement using ultrasound guidance. COMPLICATIONS: None. INDICATIONS: The patient is a 74 year old male with lymphoma. Patient understands the risks and benefits of port placement and wished to proceed with the procedure. Consent was signed on the chart. PROCEDURE: The patient was taken to the operating suite, was prepped and draped in the sterile fashion. A surgical pause was performed. Ultrasound was used to locate the internal jugular vein. Once located anesthetic was infiltrated above it. Using micro-access kit, the right internal vein was accessed. Dark nonpulsatile blood was withdrawn. The wire was inserted. Fluoroscopy assured proper placement. The needle was removed. The micro-access dilator was advanced over the wire and the wire was removed. The regular wire was inserted and fluoroscopy assured proper placement. The wire was then secured. Local anesthetic was used to anesthetize from the neck for tunneling down to the right chest and for pocket creation. A 15 blade scalpel was used to make an incision over the right chest. Cautery was used to dissect down to the pectoral fascia. A pocket was created with blunt dissection. The dilator sheath was then advanced over the wire under fluoroscopy and the dilator and wire were removed. The Groshong catheter was inserted through the sheath and the sheath was then removed. The Groshong wire was removed. The catheter was then tunneled to the right chest pocket. Fluoroscopy was used to cut to length and this was then attached to the port which was then placed within the pocket. The port was then accessed without difficulty. It was then flushed with saline and then heparin. The subcutaneous tissues were then reapproximated using 3-0 Vicryl. The areas were then washed and dried. Skin Affix was placed over incision. The insertion point of the neck Skin Affix was placed over the incision. The patient tolerated the procedure well without complication and was taken to recovery room in stable condition. Chest x-ray is pending. Anesthesia Type mac c local Estimated Blood Loss Estimated blood loss (mL): min Specimens/Packing Specimens Removed SIMIN Chan DO December 23, 2019 11:50
[2019-12-23] MEDS ORDERED: morphine INJ 10 MG/ML 1ML (SYR OR VIAL) IVP ONE (12:00)
[2019-12-23] MEDS ORDERED: ONDANSETRON 4 MG/2 ML (SDV) Z0FRAN IVP PRN (12:00)
--- NOTE | 2019-12-23 12:19 | Diagnostic Imaging Report ---
INDICATION: Groshong placement. TIME OF EXAM: 11:57 AM Comparison is made to prior exam from 10/22/2016. Right chest wall port has tip overlying the SVC. Lungs are clear. No pneumothorax is detected. The heart size is normal. IMPRESSION: Right chest wall port placement. No pneumothorax is detected. Dictated by: Dictated on workstation # [id number]
--- NOTE | 2019-12-23 12:28 | Diagnostic Imaging Report ---
INDICATION: Fluoroscopy for right chest wall port placement. Fluoroscopy was provided in OR during Groshong catheter placement. 36 seconds of fluoroscopic time was utilized. A single image was obtained demonstrating a right chest wall port. IMPRESSION: Fluoroscopy for right chest wall port placement. Dictated by: Dictated on workstation # [id number]
--- NOTE | 2019-12-23 14:06 | Anesthesia-General Post-Op ---
MAC Patient Condition Mental Status/LOC: Same as Preop Cardiovascular: Satisfactory Nausea/Vomiting: Absent Respiratory: Satisfactory Pain: Controlled Complications: Absent Post Op Complications Complications None Follow Up Care/Instructions Patient Instructions None needed. Anesthesiology Discharge Order Discharge Order Patient is doing well, no complaints, stable vital signs, no apparent adverse anesthesia problems. No complications reported per nursing. GINA SCHREIBER CRNA December 23, 2019 14:05
== END 2019-12-23 13:10 | disposition home or self-care (01) ==
LOC: SDC 10:13
PROVIDERS: ATTEND Surgery
DX: C83.38 Diffuse large B-cell lymphoma, lymph nodes of multiple sites (principal); I89.0 Lymphedema, not elsewhere classified; I10 Essential (primary) hypertension; I25.10 Atherosclerotic heart disease of native coronary artery without angina pectoris; E78.5 Hyperlipidemia, unspecified; K21.9 Gastro-esophageal reflux disease without esophagitis; E11.9 Type 2 diabetes mellitus without complications; I65.29 Occlusion and stenosis of unspecified carotid artery; I26.99 Other pulmonary embolism without acute cor pulmonale; M51.34 Other intervertebral disc degeneration, thoracic region; Z87.891 Personal history of nicotine dependence; Z88.2 Allergy status to sulfonamides; Z88.1 Allergy status to other antibiotic agents; Z85.46 Personal history of malignant neoplasm of prostate; Z79.84 Long term (current) use of oral hypoglycemic drugs; Z79.82 Long term (current) use of aspirin; Z79.899 Other long term (current) drug therapy; Z88.8 Allergy status to other drugs, medicaments and biological substances
CPT/HCPCS: 71045; 76000; 82962; 87081

== ENCOUNTER 2020-02-02 08:29 | Outpatient (RCR) | payer MEDICARE, OTHER ==
[2019-11-09 11:07] LABS: BASOPHILS % (AUTO) 0 % (0-10); EOSINOPHILS # (AUTO) 0.1 10^3/uL (0.0-0.3); EOSINOPHILS % (AUTO) 2 % (0-10); HEMATOCRIT 42 % (40-54); HEMOGLOBIN 14.4 G/DL (13.3-17.7); LYMPHOCYTES # (AUTO) 1.3 X 10^3 (1.0-4.0); LYMPHOCYTES % (AUTO) 24 % (12-44); MEAN CORPUSCULAR HEMOGLOBIN 30 PG (25-34); MEAN CORPUSCULAR HGB CONC 34 G/DL (32-36); MEAN CORPUSCULAR VOLUME 89 FL (80-99); MONOCYTES # (AUTO) 0.5 X 10^3 (0.0-1.0); MONOCYTES % (AUTO) 9 % (0-12); NEUTROPHILS # (AUTO) 3.6 X 10^3 (1.8-7.8); NEUTROPHILS % (AUTO) 65 % (42-75); PLATELET COUNT 294 10^3/uL (130-400); RED CELL DISTRIBUTION WIDTH 13.2 % (10.0-14.5); WHITE BLOOD COUNT 5.4 10^3/uL (4.3-11.0)
[2019-11-09 11:24] LABS: ALANINE AMINOTRANSFERASE 26 U/L (0-55); ALBUMIN 4.3 GM/DL (3.2-4.5); ALKALINE PHOSPHATASE 53 U/L (40-136); BILIRUBIN,TOTAL 0.3 MG/DL (0.1-1.0); BUN/CREATININE RATIO 13; CALCIUM 10.2 MG/DL (8.5-10.1); CARBON DIOXIDE 24 MMOL/L (21-32); CHLORIDE 110 MMOL/L (98-107); CREATININE SERUM 0.78 MG/DL (0.60-1.30); GFR ESTIMATED > 60; GLUCOSE 77 MG/DL (70-105); POTASSIUM 4.8 MMOL/L (3.6-5.0); SODIUM 141 MMOL/L (135-145); TOTAL PROTEIN 6.8 GM/DL (6.4-8.2)
[2019-12-16 13:23] LABS: BASOPHILS % (AUTO) 0 % (0-10); EOSINOPHILS # (AUTO) 0.1 10^3/uL (0.0-0.3); EOSINOPHILS % (AUTO) 1 % (0-10); HEMATOCRIT 39 % (40-54); HEMOGLOBIN 13.4 G/DL (13.3-17.7); LYMPHOCYTES # (AUTO) 1.2 X 10^3 (1.0-4.0); LYMPHOCYTES % (AUTO) 18 % (12-44); MEAN CORPUSCULAR HEMOGLOBIN 31 PG (25-34); MEAN CORPUSCULAR HGB CONC 34 G/DL (32-36); MEAN CORPUSCULAR VOLUME 90 FL (80-99); MEAN PLATELET VOLUME 9.9 FL (7.4-10.4); MONOCYTES # (AUTO) 0.5 X 10^3 (0.0-1.0); MONOCYTES % (AUTO) 8 % (0-12); NEUTROPHILS # (AUTO) 4.9 X 10^3 (1.8-7.8); NEUTROPHILS % (AUTO) 73 % (42-75); PLATELET COUNT 260 10^3/uL (130-400); RED CELL DISTRIBUTION WIDTH 13.2 % (10.0-14.5); WHITE BLOOD COUNT 6.8 10^3/uL (4.3-11.0)
[2019-12-16 13:48] LABS: ALANINE AMINOTRANSFERASE 22 U/L (0-55); ALKALINE PHOSPHATASE 48 U/L (40-136); BILIRUBIN,TOTAL 0.4 MG/DL (0.1-1.0); BUN/CREATININE RATIO 13; CALCIUM 9.4 MG/DL (8.5-10.1); CARBON DIOXIDE 24 MMOL/L (21-32); CHLORIDE 111 MMOL/L (98-107); CREATININE SERUM 0.99 MG/DL (0.60-1.30); GFR ESTIMATED > 60; GLUCOSE 126 MG/DL (70-105); POTASSIUM 4.1 MMOL/L (3.6-5.0); SODIUM 143 MMOL/L (135-145); TOTAL PROTEIN 6.4 GM/DL (6.4-8.2)
[2020-01-06 09:07] LABS: BASOPHILS % (AUTO) 0 % (0-10); EOSINOPHILS # (AUTO) 0.1 10^3/uL (0.0-0.3); EOSINOPHILS % (AUTO) 2 % (0-10); HEMATOCRIT 39 % (40-54); HEMOGLOBIN 13.5 G/DL (13.3-17.7); LYMPHOCYTES % (AUTO) 19 % (12-44); MEAN CORPUSCULAR HEMOGLOBIN 31 PG (25-34); MEAN CORPUSCULAR HGB CONC 35 G/DL (32-36); MEAN CORPUSCULAR VOLUME 89 FL (80-99); MONOCYTES # (AUTO) 0.5 X 10^3 (0.0-1.0); MONOCYTES % (AUTO) 10 % (0-12); NEUTROPHILS # (AUTO) 3.8 X 10^3 (1.8-7.8); NEUTROPHILS % (AUTO) 69 % (42-75); PLATELET COUNT 200 10^3/uL (130-400); RED CELL DISTRIBUTION WIDTH 12.6 % (10.0-14.5); WHITE BLOOD COUNT 5.4 10^3/uL (4.3-11.0)
[2020-01-06 09:25] LABS: CHLORIDE 109 MMOL/L (98-107); POTASSIUM 4.3 MMOL/L (3.6-5.0); SODIUM 141 MMOL/L (135-145)
[2020-01-06 09:26] LABS: CALCIUM 9.5 MG/DL (8.5-10.1)
[2020-01-06 09:27] LABS: GLUCOSE 107 MG/DL (70-105)
[2020-01-06 09:28] LABS: CARBON DIOXIDE 21 MMOL/L (21-32)
[2020-01-06 09:30] LABS: CREATININE SERUM 0.85 MG/DL (0.60-1.30); GFR ESTIMATED > 60
[2020-01-06 09:31] LABS: BUN/CREATININE RATIO 13
[2020-01-12 08:56] LABS: BASOPHILS % (AUTO) 0 % (0-10); EOSINOPHILS # (AUTO) 0.1 10^3/uL (0.0-0.3); EOSINOPHILS % (AUTO) 1 % (0-10); HEMATOCRIT 39 % (40-54); HEMOGLOBIN 13.3 G/DL (13.3-17.7); LYMPHOCYTES # (AUTO) 1.1 X 10^3 (1.0-4.0); LYMPHOCYTES % (AUTO) 20 % (12-44); MEAN CORPUSCULAR HEMOGLOBIN 31 PG (25-34); MEAN CORPUSCULAR HGB CONC 34 G/DL (32-36); MEAN CORPUSCULAR VOLUME 91 FL (80-99); MONOCYTES # (AUTO) 0.6 X 10^3 (0.0-1.0); MONOCYTES % (AUTO) 10 % (0-12); NEUTROPHILS % (AUTO) 69 % (42-75); PLATELET COUNT 253 10^3/uL (130-400); RED CELL DISTRIBUTION WIDTH 13.6 % (10.0-14.5); WHITE BLOOD COUNT 5.8 10^3/uL (4.3-11.0)
[2020-01-12 09:17] LABS: ALANINE AMINOTRANSFERASE 30 U/L (0-55); ALBUMIN 3.9 GM/DL (3.2-4.5); ALKALINE PHOSPHATASE 47 U/L (40-136); BILIRUBIN,TOTAL 0.3 MG/DL (0.1-1.0); BUN/CREATININE RATIO 14; CALCIUM 9.2 MG/DL (8.5-10.1); CARBON DIOXIDE 20 MMOL/L (21-32); CHLORIDE 111 MMOL/L (98-107); CREATININE SERUM 0.85 MG/DL (0.60-1.30); GFR ESTIMATED > 60; GLUCOSE 99 MG/DL (70-105); MAGNESIUM 1.6 MG/DL (1.6-2.4); POTASSIUM 4.5 MMOL/L (3.6-5.0); SODIUM 141 MMOL/L (135-145); TOTAL PROTEIN 6.6 GM/DL (6.4-8.2)
[2020-01-19 09:12] LABS: BASOPHILS % (AUTO) 1 % (0-10); EOSINOPHILS % (AUTO) 1 % (0-10); HEMATOCRIT 38 % (40-54); HEMOGLOBIN 13.3 G/DL (13.3-17.7); LYMPHOCYTES # (AUTO) 1.1 X 10^3 (1.0-4.0); LYMPHOCYTES % (AUTO) 33 % (12-44); MEAN CORPUSCULAR HEMOGLOBIN 31 PG (25-34); MEAN CORPUSCULAR HGB CONC 35 G/DL (32-36); MEAN CORPUSCULAR VOLUME 90 FL (80-99); MEAN PLATELET VOLUME 9.4 FL (7.4-10.4); MONOCYTES # (AUTO) 0.6 X 10^3 (0.0-1.0); MONOCYTES % (AUTO) 17 % (0-12); NEUTROPHILS # (AUTO) 1.6 X 10^3 (1.8-7.8); NEUTROPHILS % (AUTO) 48 % (42-75); PLATELET COUNT 284 10^3/uL (130-400); RED CELL DISTRIBUTION WIDTH 13.3 % (10.0-14.5); WHITE BLOOD COUNT 3.4 10^3/uL (4.3-11.0)
[2020-01-19 09:36] LABS: BUN/CREATININE RATIO 10; CALCIUM 9.9 MG/DL (8.5-10.1); CARBON DIOXIDE 22 MMOL/L (21-32); CHLORIDE 108 MMOL/L (98-107); CREATININE SERUM 0.89 MG/DL (0.60-1.30); GFR ESTIMATED > 60; GLUCOSE 131 MG/DL (70-105); POTASSIUM 4.8 MMOL/L (3.6-5.0); SODIUM 140 MMOL/L (135-145)
[2020-01-26 09:19] LABS: BASOPHILS % (AUTO) 0 % (0-10); EOSINOPHILS # (AUTO) 0.1 10^3/uL (0.0-0.3); EOSINOPHILS % (AUTO) 2 % (0-10); HEMATOCRIT 37 % (40-54); HEMOGLOBIN 12.5 G/DL (13.3-17.7); LYMPHOCYTES # (AUTO) 1.2 X 10^3 (1.0-4.0); LYMPHOCYTES % (AUTO) 21 % (12-44); MEAN CORPUSCULAR HEMOGLOBIN 31 PG (25-34); MEAN CORPUSCULAR HGB CONC 34 G/DL (32-36); MEAN CORPUSCULAR VOLUME 91 FL (80-99); MEAN PLATELET VOLUME 10.3 FL (7.4-10.4); MONOCYTES # (AUTO) 0.8 X 10^3 (0.0-1.0); MONOCYTES % (AUTO) 14 % (0-12); NEUTROPHILS # (AUTO) 3.7 X 10^3 (1.8-7.8); NEUTROPHILS % (AUTO) 64 % (42-75); PLATELET COUNT 226 10^3/uL (130-400); RED CELL DISTRIBUTION WIDTH 14.3 % (10.0-14.5); WHITE BLOOD COUNT 5.8 10^3/uL (4.3-11.0)
[2020-01-26 09:41] LABS: ALANINE AMINOTRANSFERASE 37 U/L (0-55); ALBUMIN 3.7 GM/DL (3.2-4.5); ALKALINE PHOSPHATASE 61 U/L (40-136); BILIRUBIN,TOTAL 0.3 MG/DL (0.1-1.0); BUN/CREATININE RATIO 13; CARBON DIOXIDE 18 MMOL/L (21-32); CHLORIDE 111 MMOL/L (98-107); CREATININE SERUM 0.79 MG/DL (0.60-1.30); GFR ESTIMATED > 60; GLUCOSE 135 MG/DL (70-105); MAGNESIUM 1.6 MG/DL (1.6-2.4); POTASSIUM 4.2 MMOL/L (3.6-5.0); SODIUM 141 MMOL/L (135-145); TOTAL PROTEIN 6.4 GM/DL (6.4-8.2)
[~2020-02-02] VITALS: Ht 172.7 cm; Wt 80.3 kg
[~2020-02-02 08:29] MED LIST changes: +ACETAMINOPHEN 325 MG TAB (TYLENOL) CANCER CTR PO PRN; +D5W 500 ML IV (CANCER CTR) 500 ML IV SCH; +FOSAPREPITANT (CANCER CENTER) 150 MG in NS (IVPB) CANCER CENTER ONLY 150 ML IV SCH; +GEMCITABINE HCL IV SCH; +NS IV SCH; +OXALIPLATIN 170 MG in D5W 250 ML IVPB (CANCER CTR) 250 ML IV SCH; +PALONOSETRON HCL 0.25 MG, DEXAMETHASONE INJECTION 10 MG in NS (IVPB) CANCER CENTER 50 ML IV SCH; +diphenhydrAMINE 25 MG TAB (BENADRYL) CANCER CENTER PO SCH; +diphenhydrAMINE 50 MG/ML INJ (CANCER CENTER) IV PRN; +riTUXimab 500 MG, riTUXimab FOR IV INJ CONC 200 MG in NS (IVPB) CANCER CENTER ONLY 150 ML IV SCH
[2020-02-02 08:40] LABS: BASOPHILS % (AUTO) 1 % (0-10); EOSINOPHILS % (AUTO) 1 % (0-10); HEMATOCRIT 38 % (40-54); LYMPHOCYTES # (AUTO) 0.9 X 10^3 (1.0-4.0); LYMPHOCYTES % (AUTO) 28 % (12-44); MEAN CORPUSCULAR HEMOGLOBIN 31 PG (25-34); MEAN CORPUSCULAR HGB CONC 34 G/DL (32-36); MEAN CORPUSCULAR VOLUME 90 FL (80-99); MEAN PLATELET VOLUME 9.8 FL (7.4-10.4); MONOCYTES # (AUTO) 0.6 X 10^3 (0.0-1.0); MONOCYTES % (AUTO) 16 % (0-12); NEUTROPHILS # (AUTO) 1.9 X 10^3 (1.8-7.8); NEUTROPHILS % (AUTO) 55 % (42-75); PLATELET COUNT 201 10^3/uL (130-400); RED CELL DISTRIBUTION WIDTH 13.5 % (10.0-14.5); WHITE BLOOD COUNT 3.4 10^3/uL (4.3-11.0)
[2020-02-02 08:59] LABS: BUN/CREATININE RATIO 14; CALCIUM 9.4 MG/DL (8.5-10.1); CARBON DIOXIDE 19 MMOL/L (21-32); CHLORIDE 108 MMOL/L (98-107); CREATININE SERUM 0.78 MG/DL (0.60-1.30); GFR ESTIMATED > 60; GLUCOSE 110 MG/DL (70-105); SODIUM 139 MMOL/L (135-145)
== END 2020-02-07 | disposition home or self-care (01) ==
LOC: ONC 08:29
PROVIDERS: ATTEND Internal Medicine Hematology & Oncology
DX: C83.30 Diffuse large B-cell lymphoma, unspecified site (principal); I10 Essential (primary) hypertension; E78.5 Hyperlipidemia, unspecified; I25.10 Atherosclerotic heart disease of native coronary artery without angina pectoris; R97.20 Elevated prostate specific antigen [PSA]; R59.0 Localized enlarged lymph nodes; Z92.21 Personal history of antineoplastic chemotherapy
CPT/HCPCS: 80053; 83615; 85025; G0463; 36415; 36591; 80048; 83735; 96367; 96375; 96413; 96415; 96417; 99213; J9312

== ENCOUNTER → 2020-03-21 | Outpatient (CLI) | payer MEDICARE, OTHER ==
[~2020-03-21] MED LIST changes: -ACETAMINOPHEN 325 MG TAB (TYLENOL) CANCER CTR PO PRN; -D5W 500 ML IV (CANCER CTR) 500 ML IV SCH; -FOSAPREPITANT (CANCER CENTER) 150 MG in NS (IVPB) CANCER CENTER ONLY 150 ML IV SCH; -GEMCITABINE HCL IV SCH; -NS IV SCH; -OXALIPLATIN 170 MG in D5W 250 ML IVPB (CANCER CTR) 250 ML IV SCH; -PALONOSETRON HCL 0.25 MG, DEXAMETHASONE INJECTION 10 MG in NS (IVPB) CANCER CENTER 50 ML IV SCH; -diphenhydrAMINE 25 MG TAB (BENADRYL) CANCER CENTER PO SCH; -diphenhydrAMINE 50 MG/ML INJ (CANCER CENTER) IV PRN; -riTUXimab 500 MG, riTUXimab FOR IV INJ CONC 200 MG in NS (IVPB) CANCER CENTER ONLY 150 ML IV SCH
--- NOTE | 2020-03-21 15:13 | Diagnostic Imaging Report ---
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 TECHNIQUE: Serum blood glucose level at the time of injection is 106 mg/dL. The patient was administered 14.6 mCi F18-FDG intravenously in a right antecubital location and PET imaging was performed from the top of the skull to mid thighs. Noncontrast CT was also performed for attenuation correction and anatomic correlation. COMPARISON is made with prior PET/CT study from 11/23/2019. There is symmetric activity throughout the brain. Soft tissues of the neck are unremarkable. Previously noted left axillary hypermetabolic lymphadenopathy has resolved. Right axilla is unremarkable. No mediastinal or hilar hypermetabolism is identified. No pulmonary parenchymal hypermetabolism is identified. Physiologic activity within the gastrointestinal and genitourinary tracts of the abdomen and pelvis is noted. No suspicious hypermetabolism is identified. IMPRESSION: Unremarkable PET/CT study. Previously noted hypermetabolic left axillary lymphadenopathy has resolved. No new abnormality is detected. Dictated by: Dictated on workstation # [id number]
== END ==
LOC: RAD 10:49
PROVIDERS: ATTEND Nurse Practitioner Adult Health
DX: C83.38 Diffuse large B-cell lymphoma, lymph nodes of multiple sites (principal)
CPT/HCPCS: 78815; A9552

== ENCOUNTER 2020-05-04 14:27 | Outpatient (RCR) | payer MEDICARE, OTHER ==
[2020-02-09 09:13] LABS: BASOPHILS % (AUTO) 0 % (0-10); EOSINOPHILS # (AUTO) 0.1 10^3/uL (0.0-0.3); EOSINOPHILS % (AUTO) 1 % (0-10); HEMATOCRIT 38 % (40-54); HEMOGLOBIN 12.7 G/DL (13.3-17.7); LYMPHOCYTES # (AUTO) 0.9 X 10^3 (1.0-4.0); LYMPHOCYTES % (AUTO) 16 % (12-44); MEAN CORPUSCULAR HEMOGLOBIN 31 PG (25-34); MEAN CORPUSCULAR HGB CONC 34 G/DL (32-36); MEAN CORPUSCULAR VOLUME 92 FL (80-99); MEAN PLATELET VOLUME 10.2 FL (7.4-10.4); MONOCYTES # (AUTO) 0.8 X 10^3 (0.0-1.0); MONOCYTES % (AUTO) 14 % (0-12); NEUTROPHILS # (AUTO) 3.8 X 10^3 (1.8-7.8); NEUTROPHILS % (AUTO) 69 % (42-75); PLATELET COUNT 215 10^3/uL (130-400); WHITE BLOOD COUNT 5.5 10^3/uL (4.3-11.0)
[2020-02-09 09:30] LABS: ALANINE AMINOTRANSFERASE 40 U/L (0-55); ALBUMIN 3.9 GM/DL (3.2-4.5); ALKALINE PHOSPHATASE 64 U/L (40-136); BILIRUBIN,TOTAL 0.3 MG/DL (0.1-1.0); BUN/CREATININE RATIO 10; CALCIUM 9.1 MG/DL (8.5-10.1); CARBON DIOXIDE 21 MMOL/L (21-32); CHLORIDE 113 MMOL/L (98-107); CREATININE SERUM 0.77 MG/DL (0.60-1.30); GFR ESTIMATED > 60; GLUCOSE 118 MG/DL (70-105); MAGNESIUM 1.4 MG/DL (1.6-2.4); POTASSIUM 3.9 MMOL/L (3.6-5.0); SODIUM 144 MMOL/L (135-145); TOTAL PROTEIN 6.5 GM/DL (6.4-8.2)
[2020-02-16 08:57] LABS: BASOPHILS % (AUTO) 1 % (0-10); EOSINOPHILS % (AUTO) 1 % (0-10); HEMATOCRIT 37 % (40-54); HEMOGLOBIN 12.4 G/DL (13.3-17.7); LYMPHOCYTES # (AUTO) 0.9 X 10^3 (1.0-4.0); LYMPHOCYTES % (AUTO) 19 % (12-44); MEAN CORPUSCULAR HEMOGLOBIN 31 PG (25-34); MEAN CORPUSCULAR HGB CONC 34 G/DL (32-36); MEAN CORPUSCULAR VOLUME 91 FL (80-99); MEAN PLATELET VOLUME 9.9 FL (7.4-10.4); MONOCYTES # (AUTO) 0.6 X 10^3 (0.0-1.0); MONOCYTES % (AUTO) 13 % (0-12); NEUTROPHILS # (AUTO) 2.9 X 10^3 (1.8-7.8); NEUTROPHILS % (AUTO) 66 % (42-75); PLATELET COUNT 231 10^3/uL (130-400); WHITE BLOOD COUNT 4.4 10^3/uL (4.3-11.0)
[2020-02-16 09:17] LABS: BUN/CREATININE RATIO 13; CALCIUM 9.7 MG/DL (8.5-10.1); CARBON DIOXIDE 22 MMOL/L (21-32); CHLORIDE 109 MMOL/L (98-107); CREATININE SERUM 0.84 MG/DL (0.60-1.30); GFR ESTIMATED > 60; GLUCOSE 123 MG/DL (70-105); POTASSIUM 4.4 MMOL/L (3.6-5.0); SODIUM 141 MMOL/L (135-145)
[2020-02-23 09:32] LABS: BASOPHILS % (AUTO) 0 % (0-10); EOSINOPHILS % (AUTO) 1 % (0-10); HEMATOCRIT 38 % (40-54); HEMOGLOBIN 13.2 G/DL (13.3-17.7); LYMPHOCYTES # (AUTO) 0.9 X 10^3 (1.0-4.0); LYMPHOCYTES % (AUTO) 17 % (12-44); MEAN CORPUSCULAR HEMOGLOBIN 31 PG (25-34); MEAN CORPUSCULAR HGB CONC 35 G/DL (32-36); MEAN CORPUSCULAR VOLUME 91 FL (80-99); MEAN PLATELET VOLUME 10.3 FL (7.4-10.4); MONOCYTES # (AUTO) 0.9 X 10^3 (0.0-1.0); MONOCYTES % (AUTO) 16 % (0-12); NEUTROPHILS # (AUTO) 3.6 X 10^3 (1.8-7.8); NEUTROPHILS % (AUTO) 66 % (42-75); PLATELET COUNT 225 10^3/uL (130-400); WHITE BLOOD COUNT 5.5 10^3/uL (4.3-11.0)
[2020-02-23 10:03] LABS: ALANINE AMINOTRANSFERASE 42 U/L (0-55); ALKALINE PHOSPHATASE 62 U/L (40-136); BILIRUBIN,TOTAL 0.3 MG/DL (0.1-1.0); BUN/CREATININE RATIO 14; CALCIUM 9.4 MG/DL (8.5-10.1); CARBON DIOXIDE 21 MMOL/L (21-32); CHLORIDE 109 MMOL/L (98-107); CREATININE SERUM 0.84 MG/DL (0.60-1.30); GFR ESTIMATED > 60; GLUCOSE 127 MG/DL (70-105); MAGNESIUM 1.4 MG/DL (1.6-2.4); POTASSIUM 3.8 MMOL/L (3.6-5.0); SODIUM 141 MMOL/L (135-145); TOTAL PROTEIN 6.6 GM/DL (6.4-8.2)
[2020-03-01 09:02] LABS: BASOPHILS % (AUTO) 1 % (0-10); EOSINOPHILS # (AUTO) 0.1 10^3/uL (0.0-0.3); EOSINOPHILS % (AUTO) 2 % (0-10); HEMATOCRIT 37 % (40-54); HEMOGLOBIN 12.8 G/DL (13.3-17.7); LYMPHOCYTES # (AUTO) 0.9 X 10^3 (1.0-4.0); LYMPHOCYTES % (AUTO) 28 % (12-44); MEAN CORPUSCULAR HEMOGLOBIN 31 PG (25-34); MEAN CORPUSCULAR HGB CONC 34 G/DL (32-36); MEAN CORPUSCULAR VOLUME 91 FL (80-99); MEAN PLATELET VOLUME 9.5 FL (7.4-10.4); MONOCYTES # (AUTO) 0.5 X 10^3 (0.0-1.0); MONOCYTES % (AUTO) 17 % (0-12); NEUTROPHILS # (AUTO) 1.7 X 10^3 (1.8-7.8); NEUTROPHILS % (AUTO) 54 % (42-75); PLATELET COUNT 209 10^3/uL (130-400); WHITE BLOOD COUNT 3.2 10^3/uL (4.3-11.0)
[2020-03-01 09:22] LABS: BUN/CREATININE RATIO 13; CALCIUM 9.7 MG/DL (8.5-10.1); CARBON DIOXIDE 21 MMOL/L (21-32); CHLORIDE 110 MMOL/L (98-107); CREATININE SERUM 0.79 MG/DL (0.60-1.30); GFR ESTIMATED > 60; GLUCOSE 94 MG/DL (70-105); POTASSIUM 4.6 MMOL/L (3.6-5.0); SODIUM 143 MMOL/L (135-145)
[2020-03-08 09:11] LABS: BASOPHILS % (AUTO) 0 % (0-10); EOSINOPHILS % (AUTO) 1 % (0-10); HEMATOCRIT 39 % (40-54); LYMPHOCYTES % (AUTO) 18 % (12-44); MEAN CORPUSCULAR HEMOGLOBIN 31 PG (25-34); MEAN CORPUSCULAR HGB CONC 34 G/DL (32-36); MEAN CORPUSCULAR VOLUME 91 FL (80-99); MEAN PLATELET VOLUME 10.3 FL (7.4-10.4); MONOCYTES % (AUTO) 18 % (0-12); NEUTROPHILS # (AUTO) 3.2 X 10^3 (1.8-7.8); NEUTROPHILS % (AUTO) 62 % (42-75); PLATELET COUNT 219 10^3/uL (130-400); WHITE BLOOD COUNT 5.2 10^3/uL (4.3-11.0)
[2020-03-08 09:29] LABS: ALANINE AMINOTRANSFERASE 40 U/L (0-55); ALKALINE PHOSPHATASE 64 U/L (40-136); BILIRUBIN,TOTAL 0.4 MG/DL (0.1-1.0); BUN/CREATININE RATIO 14; CALCIUM 9.2 MG/DL (8.5-10.1); CARBON DIOXIDE 22 MMOL/L (21-32); CHLORIDE 110 MMOL/L (98-107); CREATININE SERUM 0.79 MG/DL (0.60-1.30); GFR ESTIMATED > 60; GLUCOSE 102 MG/DL (70-105); MAGNESIUM 1.5 MG/DL (1.6-2.4); POTASSIUM 3.9 MMOL/L (3.6-5.0); SODIUM 141 MMOL/L (135-145); TOTAL PROTEIN 6.9 GM/DL (6.4-8.2)
[2020-03-22 10:02] LABS: BASOPHILS % (AUTO) 0 % (0-10); EOSINOPHILS # (AUTO) 0.1 10^3/uL (0.0-0.3); EOSINOPHILS % (AUTO) 1 % (0-10); HEMATOCRIT 37 % (40-54); HEMOGLOBIN 12.6 G/DL (13.3-17.7); LYMPHOCYTES % (AUTO) 18 % (12-44); MEAN CORPUSCULAR HEMOGLOBIN 32 PG (25-34); MEAN CORPUSCULAR HGB CONC 35 G/DL (32-36); MEAN CORPUSCULAR VOLUME 92 FL (80-99); MEAN PLATELET VOLUME 10.2 FL (7.4-10.4); MONOCYTES % (AUTO) 18 % (0-12); NEUTROPHILS # (AUTO) 3.5 X 10^3 (1.8-7.8); NEUTROPHILS % (AUTO) 63 % (42-75); PLATELET COUNT 221 10^3/uL (130-400); WHITE BLOOD COUNT 5.6 10^3/uL (4.3-11.0)
[2020-03-22 10:25] LABS: ALANINE AMINOTRANSFERASE 36 U/L (0-55); ALKALINE PHOSPHATASE 63 U/L (40-136); BILIRUBIN,TOTAL 0.3 MG/DL (0.1-1.0); BUN/CREATININE RATIO 22; CALCIUM 9.8 MG/DL (8.5-10.1); CARBON DIOXIDE 22 MMOL/L (21-32); CHLORIDE 110 MMOL/L (98-107); CREATININE SERUM 0.81 MG/DL (0.60-1.30); GFR ESTIMATED > 60; GLUCOSE 156 MG/DL (70-105); MAGNESIUM 1.5 MG/DL (1.6-2.4); POTASSIUM 4.3 MMOL/L (3.6-5.0); SODIUM 140 MMOL/L (135-145); TOTAL PROTEIN 6.5 GM/DL (6.4-8.2)
[2020-03-27 10:27] LABS: BASOPHILS % (AUTO) 0 % (0-10); EOSINOPHILS % (AUTO) 1 % (0-10); HEMATOCRIT 40 % (40-54); HEMOGLOBIN 13.5 G/DL (13.3-17.7); LYMPHOCYTES # (AUTO) 1.1 X 10^3 (1.0-4.0); LYMPHOCYTES % (AUTO) 19 % (12-44); MEAN CORPUSCULAR HEMOGLOBIN 31 PG (25-34); MEAN CORPUSCULAR HGB CONC 34 G/DL (32-36); MEAN CORPUSCULAR VOLUME 93 FL (80-99); MEAN PLATELET VOLUME 9.9 FL (7.4-10.4); MONOCYTES # (AUTO) 0.9 X 10^3 (0.0-1.0); MONOCYTES % (AUTO) 16 % (0-12); NEUTROPHILS # (AUTO) 3.6 X 10^3 (1.8-7.8); NEUTROPHILS % (AUTO) 65 % (42-75); PLATELET COUNT 365 10^3/uL (130-400); WHITE BLOOD COUNT 5.6 10^3/uL (4.3-11.0)
[2020-03-27 10:49] LABS: BUN/CREATININE RATIO 17; CALCIUM 10.3 MG/DL (8.5-10.1); CARBON DIOXIDE 22 MMOL/L (21-32); CHLORIDE 109 MMOL/L (98-107); CREATININE SERUM 0.93 MG/DL (0.60-1.30); GFR ESTIMATED > 60; GLUCOSE 105 MG/DL (70-105); POTASSIUM 4.6 MMOL/L (3.6-5.0); SODIUM 140 MMOL/L (135-145)
[~2020-05-04] VITALS: Ht 172.7 cm; Wt 77.1 kg
[~2020-05-04 14:27] MED LIST changes: +ACETAMINOPHEN 325 MG TAB (TYLENOL) CANCER CTR PO PRN; +D5W 500 ML IV (CANCER CTR) 500 ML IV SCH; +FOSAPREPITANT (CANCER CENTER) 150 MG in NS (IVPB) CANCER CENTER ONLY 150 ML IV SCH; +GEMCITABINE HCL IV SCH; +NS IV SCH; +OXALIPLATIN 100 MG, OXALIPLATIN (GENERIC) 40 MG in D5W 250 ML IVPB (CANCER CTR) 250 ML IV SCH; +OXALIPLATIN 170 MG in D5W 250 ML IVPB (CANCER CTR) 250 ML IV SCH; +RITUXIMAB-ABBS 500 MG, RITUXIMAB-ABBS 200 MG in NS (IVPB) CANCER CENTER ONLY 150 ML IV SCH; +diphenhydrAMINE 25 MG TAB (BENADRYL) CANCER CENTER PO SCH; +diphenhydrAMINE 50 MG/ML INJ (CANCER CENTER) IV PRN; +riTUXimab 500 MG, riTUXimab FOR IV INJ CONC 200 MG in NS (IVPB) CANCER CENTER ONLY 150 ML IV SCH
[2020-05-04 15:10] LABS: ALANINE AMINOTRANSFERASE 33 U/L (0-55); ALBUMIN 4.3 GM/DL (3.2-4.5); ALKALINE PHOSPHATASE 51 U/L (40-136); BILIRUBIN,TOTAL 0.4 MG/DL (0.1-1.0); BUN/CREATININE RATIO 16; CARBON DIOXIDE 21 MMOL/L (21-32); CHLORIDE 108 MMOL/L (98-107); CREATININE SERUM 1.16 MG/DL (0.60-1.30); GFR ESTIMATED > 60; GLUCOSE 82 MG/DL (70-105); POTASSIUM 4.4 MMOL/L (3.6-5.0); SODIUM 141 MMOL/L (135-145); TOTAL PROTEIN 6.4 GM/DL (6.4-8.2)
[2020-05-04 15:15] LABS: HEMATOCRIT 39 % (40-54); HEMOGLOBIN 13.6 G/DL (13.3-17.7); LYMPHOCYTES % (AUTO) 18 % (12-44); MEAN CORPUSCULAR HEMOGLOBIN 32 PG (25-34); MEAN CORPUSCULAR HGB CONC 35 G/DL (32-36); MEAN CORPUSCULAR VOLUME 90 FL (80-99); MEAN PLATELET VOLUME 1.3 FL (7.4-10.4); NEUTROPHILS % (AUTO) 70 % (42-75); PLATELET COUNT 253 10^3/uL (130-400); WHITE BLOOD COUNT 6.5 10^3/uL (4.3-11.0)
[2020-05-04 15:16] LABS: BASOPHILS % (AUTO) 0 % (0-10); EOSINOPHILS # (AUTO) 0.1 10^3/uL (0.0-0.3); EOSINOPHILS % (AUTO) 1 % (0-10); LYMPHOCYTES # (AUTO) 1.2 X 10^3 (1.0-4.0); MONOCYTES # (AUTO) 0.7 X 10^3 (0.0-1.0); MONOCYTES % (AUTO) 11 % (0-12); NEUTROPHILS # (AUTO) 4.5 X 10^3 (1.8-7.8)
== END 2020-05-09 | disposition home or self-care (01) ==
LOC: ONC 14:27
PROVIDERS: ATTEND Internal Medicine Hematology & Oncology
DX: Z51.11 Encounter for antineoplastic chemotherapy (principal); C83.30 Diffuse large B-cell lymphoma, unspecified site; I10 Essential (primary) hypertension; E78.5 Hyperlipidemia, unspecified; I25.10 Atherosclerotic heart disease of native coronary artery without angina pectoris; R97.20 Elevated prostate specific antigen [PSA]; R59.0 Localized enlarged lymph nodes; Z92.21 Personal history of antineoplastic chemotherapy
CPT/HCPCS: 80053; 83615; 83735; 85025; 96367; 96375; 96413; 96417; G0463; 36591; 77290; 77295; 77300; 77334; 77336; 77402; 77417; 77470; 80048; 96415; 99205; 99213; 99215; J9312

== ENCOUNTER → 2020-05-30 | Outpatient (CLI) | payer MEDICARE, OTHER ==
[~2020-05-30] VITALS: Ht 173 cm; Wt 79.0 kg
[~2020-05-30] MED LIST changes: -ACETAMINOPHEN 325 MG TAB (TYLENOL) CANCER CTR PO PRN; +AMLO-250 PO; -AMLO5TAB9 PO; -D5W 500 ML IV (CANCER CTR) 500 ML IV SCH; -FOSAPREPITANT (CANCER CENTER) 150 MG in NS (IVPB) CANCER CENTER ONLY 150 ML IV SCH; -GEMCITABINE HCL IV SCH; -NS IV SCH; -OXALIPLATIN 100 MG, OXALIPLATIN (GENERIC) 40 MG in D5W 250 ML IVPB (CANCER CTR) 250 ML IV SCH; -OXALIPLATIN 170 MG in D5W 250 ML IVPB (CANCER CTR) 250 ML IV SCH; +REGADENOSON 0.4 MG/5 ML SYR (LEXISCAN) IV ONE; -RITUXIMAB-ABBS 500 MG, RITUXIMAB-ABBS 200 MG in NS (IVPB) CANCER CENTER ONLY 150 ML IV SCH; -diphenhydrAMINE 25 MG TAB (BENADRYL) CANCER CENTER PO SCH; -diphenhydrAMINE 50 MG/ML INJ (CANCER CENTER) IV PRN; -riTUXimab 500 MG, riTUXimab FOR IV INJ CONC 200 MG in NS (IVPB) CANCER CENTER ONLY 150 ML IV SCH
[2020-05-30] MEDS: CATHETER FLUSH 10 ML SYR IV PRN ×2 (10:51→11:38)
[2020-05-30 11:37] VITALS: BP 147/69
--- NOTE | 2020-05-30 12:39 | Diagnostic Imaging Report ---
PROCEDURE: US left lower extremity venous. TECHNIQUE: Multiple real-time grayscale images were obtained over the left lower extremity in various projections. Additional duplex Doppler and color Doppler images were also obtained. INDICATION: Left leg swelling. There is no evidence of left lower extremity DVT. Left lower extremity deep venous system shows normal compressibility with normal response to augmentation and Valsalva. No fluid collection or mass is detected. IMPRESSION: No evidence of left lower extremity DVT. Dictated by: Dictated on workstation # [id number]
--- NOTE | 2020-05-30 13:39 | STRESS TEST ---
DATE OF SERVICE: 05/30/2020 RESTING AND POST REGADENOSON TECHNETIUM-99M TETROFOSMIN SPECT CT IMAGING ORDERING PHYSICIAN: Dr. Mckeon. PRIMARY PHYSICIAN: Dr. Gutierrez. CLINICAL DIAGNOSES: Coronary artery disease. Baseline images were carried out after injection of 10.98 mCi of technetium-99m Tetrofosmin. This was followed by 0.4 mg regadenoson and 33 mCi of technetium-99m Tetrofosmin for stress imaging. The electrocardiogram showed sinus rhythm at baseline. It did not change significantly with regadenoson infusion. Review of images at rest and following stress does not indicate any significant perfusion defects consistent with significant myocardial ischemia or infarction. There is some diaphragmatic attenuation seen both at rest and following regadenoson infusion. Gated images show normal global left ventricular systolic function with normal regional wall motion, including the diaphragmatic wall of the left ventricle. Left ventricular ejection fraction is calculated to be 63%. Left ventricular end diastolic volume is 66 mL. TID is absent (0.93). CONCLUSIONS: 1. No evidence of any significant myocardial ischemia or infarction. 2. Normal regional wall motion. 3. Normal global left ventricular systolic function with a calculated ejection fraction of 63%. 4. Normal left ventricular cavity size. Job ID: [id number] DocumentID: [id number] Dictated Date: 05/30/2020 13:32:12 Vaccinator Date: 05/30/2020 13:38:55 Dictated By: ADONAY MCKEON MD, MA, FACP, FACC,
== END ==
LOC: CARD 10:00
PROVIDERS: ATTEND Internal Medicine Cardiovascular Disease
DX: I25.10 Atherosclerotic heart disease of native coronary artery without angina pectoris (principal); I65.23 Occlusion and stenosis of bilateral carotid arteries; I10 Essential (primary) hypertension; E11.9 Type 2 diabetes mellitus without complications; M79.89 Other specified soft tissue disorders; E78.89 Other lipoprotein metabolism disorders; Z87.891 Personal history of nicotine dependence
CPT/HCPCS: 78452; 93017; 93306; 93971; A9502

== ENCOUNTER → 2020-08-02 | Outpatient (CLI) | payer MEDICARE, OTHER ==
[~2020-08-02] MED LIST changes: -REGADENOSON 0.4 MG/5 ML SYR (LEXISCAN) IV ONE
[2020-08-02 10:29] LABS: TRIGLYCERIDES 221 MG/DL (<150); VLDL CHOLESTEROL 44 MG/DL (5-40)
[2020-08-02 10:49] LABS: CHOLESTEROL 125 MG/DL (< 200); HDL CHOLESTEROL 38 MG/DL (40-60)
== END ==
LOC: LAB 09:41
PROVIDERS: ATTEND Family Medicine
DX: I25.10 Atherosclerotic heart disease of native coronary artery without angina pectoris (principal)
CPT/HCPCS: 36415; 80061; 83036

== ENCOUNTER → 2020-08-02 | Outpatient (CLI) | payer MEDICARE, OTHER ==
[~2020-08-02] MED LIST changes: +CATHETER FLUSH 10 ML SYR IV PRN; +HOLD METFORMIN - RECEIVED CONTRAST 20 ML VIAL IV SCH; +IOHEXOL 350 MG/ML 100 ML (OMNIPAQUE 350) VIAL IV ONE; +NS 100 ML (IVPB) BAG IV ONE
--- NOTE | 2020-08-02 11:42 | Diagnostic Imaging Report ---
PROCEDURE: CT chest and abdomen with contrast. TECHNIQUE: Multiple contiguous axial images were obtained through the chest and abdomen after the administration of intravenous contrast. Auto Exposure Controls were utilized during the CT exam to meet ALARA standards for radiation dose reduction. INDICATION: Diffuse large B-cell lymphoma. Correlation is made with prior CT from 05/03/2019. CT CHEST: A right chest wall port has tip within the SVC. There has been development of enlarged lymph node in the right axilla since prior exam measuring 1.9 x 1.1 cm. The marker lymph nodes in the left axilla have nearly completely resolved. The dominant marker lymph node now only measures approximately 0.5 x 0.6 cm compared with 2.6 x 1.3 cm on prior. No mediastinal or hilar lymphadenopathy is identified. No pericardial or pleural fluid is detected. No pulmonary infiltrates are seen. There are no nodules. Bony structures are unremarkable. IMPRESSION: 1. Resolution of left axillary lymphadenopathy since prior study from April 2019. Patient has developed a prominent lymph node in the right axilla since prior exam. No other significant abnormality is detected. CT ABDOMEN: Peripheral hypodense lesion right lobe of the liver appears stable. No new mass is identified. Hepatic steatosis is again noted. Gallbladder is unremarkable. There is no biliary ductal dilatation. The pancreas and spleen are unremarkable. No adrenal mass is identified. Kidneys appear stable. Aorta is calcified but non-aneurysmal. No central retroperitoneal or mesenteric lymphadenopathy is seen. There is diverticulosis of the descending colon. There is no ascites. Bony structures are unremarkable. IMPRESSION: Stable CT abdomen when compared with exam from 05/03/2019. Dictated by: Dictated on workstation # [id number]
== END ==
LOC: RAD 10:12
PROVIDERS: ATTEND Internal Medicine Hematology & Oncology
DX: C83.38 Diffuse large B-cell lymphoma, lymph nodes of multiple sites (principal); I89.0 Lymphedema, not elsewhere classified
CPT/HCPCS: 71260; 74160

== ENCOUNTER 2020-08-28 10:17 | Outpatient (RCR) | payer MEDICARE, OTHER ==
[~2020-08-28 10:17] MED LIST changes: -CATHETER FLUSH 10 ML SYR IV PRN; -CLIN150C17 PO; +CLIN150C18 PO; -HOLD METFORMIN - RECEIVED CONTRAST 20 ML VIAL IV SCH; -IOHEXOL 350 MG/ML 100 ML (OMNIPAQUE 350) VIAL IV ONE; -NS 100 ML (IVPB) BAG IV ONE
== END 2020-09-25 09:55 | disposition home or self-care (01) ==
PROVIDERS: ATTEND Internal Medicine Hematology & Oncology
DX: I89.0 Lymphedema, not elsewhere classified (principal)

== ENCOUNTER → 2020-09-27 | Outpatient (CLI) | payer MEDICARE, OTHER ==
[~2020-09-27] MED LIST changes: +CATHETER FLUSH 10 ML SYR IV PRN; +HOLD METFORMIN - RECEIVED CONTRAST 20 ML VIAL IV SCH; +IOHEXOL 350 MG/ML 100 ML (OMNIPAQUE 350) VIAL IV ONE; +NS 100 ML (IVPB) BAG IV ONE
--- NOTE | 2020-09-27 11:07 | Diagnostic Imaging Report ---
PROCEDURE: CT chest and abdomen with contrast. TECHNIQUE: Multiple contiguous axial images were obtained through the chest and abdomen after the administration of intravenous contrast. Auto Exposure Controls were utilized during the CT exam to meet ALARA standards for radiation dose reduction. INDICATION: B-cell lymphoma. The previous CT chest and abdomen exam of 08/02/2020 noted that the left axillary adenopathy identified on the previous study of 05/03/2019 has resolved. However there was a new 1.9 x 1.1 cm lymph node in the right axilla. On this exam the lymph node in the right axilla has increased in size considerably and now measures 2.7 x 4.8 cm. In addition there are at least 3 new lymph nodes in the right axilla. These measure in the 1.5-1.7 range. By history, the patient has diagnosis of B-cell lymphoma. Consequently the adenopathy of the right axilla may well represent recurrent neoplasm. If further imaging is desired, then PET/CT would be recommended. An ultrasound-guided biopsy of the right axillary mass should also be considered. The overall appearance of the chest has not changed significantly otherwise. The heart size is stable and there are coronary artery calcifications evident. The aorta is not abnormally dilated. There is no sign of dissection. There is no defect within the pulmonary arteries to indicate a pulmonary embolus. There is no mediastinal or hilar adenopathy. The thyroid gland is unremarkable. The images through the abdomen again show that the liver is of lower density than usually seen. This does suggest fatty metamorphosis. The spleen, pancreas, adrenals, kidneys, gallbladder, aorta and inferior vena cava and portal vein are unremarkable for an acute abnormality. The stomach is partially filled with fluid and consequently difficult to assess. The bone windows show no evidence for a fracture or for a destructive lesion. Fairly severe degenerative disc and bony disease is again seen at L3-L4 and L4-L5 and T7-T8. IMPRESSION: 1. The right axillary lymph nodes seen on the prior exam has increased in size considerably. Three other lymph nodes have also developed in the right axilla since the prior exam and these findings are worrisome for recurrent neoplasm. Considerations and recommendations as above. 2. The overall appearance of the chest is otherwise stable. There is no evidence for an acute abnormality. Dictated by: Dictated on workstation # [id number]
== END ==
LOC: RAD 09:45
PROVIDERS: ATTEND Internal Medicine Hematology & Oncology
DX: C85.13 Unspecified B-cell lymphoma, intra-abdominal lymph nodes (principal)
CPT/HCPCS: 71260; 74160

== ENCOUNTER 2020-10-03 13:20 | Outpatient (RCR) | payer MEDICARE, OTHER ==
[2020-08-02 10:10] LABS: BASOPHILS % (AUTO) 0 % (0-10); EOSINOPHILS # (AUTO) 0.1 10^3/uL (0.0-0.3); EOSINOPHILS % (AUTO) 2 % (0-10); HEMATOCRIT 40 % (40-54); HEMOGLOBIN 13.7 g/dL (13.3-17.7); LYMPHOCYTES % (AUTO) 17 % (12-44); MEAN CORPUSCULAR HEMOGLOBIN 31 pg (25-34); MEAN CORPUSCULAR HGB CONC 34 g/dL (32-36); MEAN CORPUSCULAR VOLUME 92 fL (80-99); MEAN PLATELET VOLUME 10.4 fL (9.0-12.2); MONOCYTES # (AUTO) 0.5 10^3/uL (0.0-1.0); MONOCYTES % (AUTO) 9 % (0-12); NEUTROPHILS # (AUTO) 4.5 10^3/uL (1.8-7.8); NEUTROPHILS % (AUTO) 73 % (42-75); PLATELET COUNT 214 10^3/uL (130-400); WHITE BLOOD COUNT 6.1 10^3/uL (4.3-11.0)
[2020-08-02 10:37] LABS: ALANINE AMINOTRANSFERASE 47 U/L (0-55); ALBUMIN 4.1 GM/DL (3.2-4.5); ALKALINE PHOSPHATASE 54 U/L (40-136); BILIRUBIN,TOTAL 0.4 MG/DL (0.1-1.0); BUN/CREATININE RATIO 16; CALCIUM 9.4 MG/DL (8.5-10.1); CARBON DIOXIDE 21 MMOL/L (21-32); CHLORIDE 110 MMOL/L (98-107); CREATININE SERUM 0.79 MG/DL (0.60-1.30); GFR ESTIMATED > 60; GLUCOSE 104 MG/DL (70-105); SODIUM 140 MMOL/L (135-145); TOTAL PROTEIN 6.8 GM/DL (6.4-8.2)
[2020-09-27 08:58] LABS: BASOPHILS % (AUTO) 0 % (0-10); EOSINOPHILS % (AUTO) 0 % (0-10); HEMATOCRIT 42 % (40-54); HEMOGLOBIN 14.2 g/dL (13.3-17.7); LYMPHOCYTES # (AUTO) 0.7 10^3/uL (1.0-4.0); LYMPHOCYTES % (AUTO) 9 % (12-44); MEAN CORPUSCULAR HEMOGLOBIN 31 pg (25-34); MEAN CORPUSCULAR HGB CONC 34 g/dL (32-36); MEAN CORPUSCULAR VOLUME 91 fL (80-99); MEAN PLATELET VOLUME 10.1 fL (9.0-12.2); MONOCYTES # (AUTO) 0.2 10^3/uL (0.0-1.0); MONOCYTES % (AUTO) 3 % (0-12); NEUTROPHILS % (AUTO) 88 % (42-75); PLATELET COUNT 283 10^3/uL (130-400); WHITE BLOOD COUNT 7.9 10^3/uL (4.3-11.0)
[2020-09-27 09:17] LABS: ALANINE AMINOTRANSFERASE 25 U/L (0-55); ALBUMIN 4.4 GM/DL (3.2-4.5); ALKALINE PHOSPHATASE 53 U/L (40-136); BILIRUBIN,TOTAL 0.4 MG/DL (0.1-1.0); BUN/CREATININE RATIO 16; CALCIUM 9.9 MG/DL (8.5-10.1); CARBON DIOXIDE 19 MMOL/L (21-32); CHLORIDE 109 MMOL/L (98-107); CREATININE SERUM 0.99 MG/DL (0.60-1.30); GFR ESTIMATED > 60; GLUCOSE 198 MG/DL (70-105); POTASSIUM 4.8 MMOL/L (3.6-5.0); SODIUM 139 MMOL/L (135-145); TOTAL PROTEIN 7.1 GM/DL (6.4-8.2)
[~2020-10-03 13:20] MED LIST changes: -CATHETER FLUSH 10 ML SYR IV PRN; -HOLD METFORMIN - RECEIVED CONTRAST 20 ML VIAL IV SCH; -IOHEXOL 350 MG/ML 100 ML (OMNIPAQUE 350) VIAL IV ONE; -NS 100 ML (IVPB) BAG IV ONE
== END 2020-10-31 | disposition home or self-care (01) ==
LOC: ONC 13:20
PROVIDERS: ATTEND Internal Medicine Hematology & Oncology
DX: C85.13 Unspecified B-cell lymphoma, intra-abdominal lymph nodes (principal); I89.0 Lymphedema, not elsewhere classified; Z92.21 Personal history of antineoplastic chemotherapy
CPT/HCPCS: 36591; 80053; 83615; 85025; 99213

== ENCOUNTER → 2020-10-31 | Outpatient (CLI) | payer MEDICARE, OTHER ==
--- NOTE | 2020-10-31 14:21 | Diagnostic Imaging Report ---
EXAMINATION: PET/CT skull to thigh study. INDICATION: B-cell lymphoma with subsequent restaging. TECHNIQUE: The serum blood glucose level at the time of injection was 121 mg/dL. The patient was administered 13.4 mCi of F-18 FDG intravenously in the left antecubital location and PET imaging was performed from the top of the skull to the mid thighs. Noncontrast CT was also performed for attenuation correction and anatomic correlation. COMPARISON: Correlation is made with the prior CT study from 09/27/2020 and prior PET/CT study from 03/21/2020. FINDINGS: There is symmetric activity throughout the brain. The soft tissues of the neck are unremarkable. The patient has developed hypermetabolic lymphadenopathy in the right supraclavicular region as well as in the right axillary region since the prior exam. A right axillary node demonstrates an SUV max of 16.8. No mediastinal or hilar hypermetabolism is identified. The left axilla is unremarkable. No pulmonary parenchymal hypermetabolism is identified. Physiologic activity throughout the GI and tracts of the abdomen and pelvis is noted. There is no suspicious hypermetabolism in the abdomen or pelvis. IMPRESSION: Development of hypermetabolic lymphadenopathy in the right supraclavicular and right axillary regions, consistent with lymphoma recurrence. Dictated by: Dictated on workstation # [id number]
== END ==
LOC: RAD 08:28
PROVIDERS: ATTEND Internal Medicine Hematology & Oncology
DX: C85.13 Unspecified B-cell lymphoma, intra-abdominal lymph nodes (principal)
CPT/HCPCS: 78815; A9552

== ENCOUNTER → 2020-11-06 | Day surgery (SDC) | payer MEDICARE, OTHER ==
[~2020-11-06] MED LIST changes: +LIDOCAINE 1% INJ 20 ML 20 ML VIAL INJ ONE; +LIDOCAINE 1% INJ 20 ML 20 ML VIAL ONE
[2020-11-06 12:44] VITALS: BP 121/61
--- NOTE | 2020-11-06 15:21 | Diagnostic Imaging Report ---
INDICATION: Right axillary lymphadenopathy. Patient presents for ultrasound-guided biopsy. DETAILS OF THE PROCEDURE: The patient was brought to the procedure room and placed on the table in the supine position. Ultrasound imaging of the right axilla was performed to evaluate for an appropriate entry site. The skin of the right axilla was then prepped and draped in the usual sterile fashion. A small amount of 1% lidocaine was utilized for local anesthesia. A total of 4 core biopsies was obtained of the dominant solid hypoechoic mass in the right axilla utilizing a 14-gauge Achieve needle. The needle was removed and hemostasis was obtained. The patient tolerated the procedure well and left the Department in stable condition. IMPRESSION: Successful ultrasound guided core biopsy of the dominant right axillary lymph node. Pathology results are currently pending. Dictated by: Dictated on workstation # [id number]
== END ==
LOC: RAD 11:58
PROVIDERS: ATTEND Internal Medicine Hematology & Oncology
DX: C85.2 Mediastinal (thymic) large B-cell lymphoma (principal); I10 Essential (primary) hypertension; I65.29 Occlusion and stenosis of unspecified carotid artery; E11.40 Type 2 diabetes mellitus with diabetic neuropathy, unspecified; M51.34 Other intervertebral disc degeneration, thoracic region; E78.5 Hyperlipidemia, unspecified; Z20.822 Contact with and (suspected) exposure to COVID-19; Z88.2 Allergy status to sulfonamides; Z88.1 Allergy status to other antibiotic agents; Z79.82 Long term (current) use of aspirin; Z79.899 Other long term (current) drug therapy; Z79.84 Long term (current) use of oral hypoglycemic drugs; Z87.891 Personal history of nicotine dependence; Z90.79 Acquired absence of other genital organ(s)
CPT/HCPCS: 76942

== ENCOUNTER 2020-12-26 08:45 | Outpatient (RCR) | payer MEDICARE, OTHER ==
[2020-11-02 13:08] LABS: BASOPHILS % (AUTO) 0 % (0-10); EOSINOPHILS # (AUTO) 0.1 10^3/uL (0.0-0.3); EOSINOPHILS % (AUTO) 2 % (0-10); HEMATOCRIT 38 % (40-54); LYMPHOCYTES # (AUTO) 1.3 10^3/uL (1.0-4.0); LYMPHOCYTES % (AUTO) 22 % (12-44); MEAN CORPUSCULAR HEMOGLOBIN 31 pg (25-34); MEAN CORPUSCULAR HGB CONC 34 g/dL (32-36); MEAN CORPUSCULAR VOLUME 90 fL (80-99); MEAN PLATELET VOLUME 9.7 fL (9.0-12.2); MONOCYTES # (AUTO) 0.5 10^3/uL (0.0-1.0); MONOCYTES % (AUTO) 8 % (0-12); NEUTROPHILS # (AUTO) 4.2 10^3/uL (1.8-7.8); NEUTROPHILS % (AUTO) 68 % (42-75); PLATELET COUNT 303 10^3/uL (130-400); WHITE BLOOD COUNT 6.2 10^3/uL (4.3-11.0)
[2020-11-02 13:27] LABS: ALANINE AMINOTRANSFERASE 18 U/L (0-55); ALBUMIN 4.1 GM/DL (3.2-4.5); ALKALINE PHOSPHATASE 55 U/L (40-136); BILIRUBIN,TOTAL 0.3 MG/DL (0.1-1.0); BUN/CREATININE RATIO 17; CALCIUM 9.5 MG/DL (8.5-10.1); CARBON DIOXIDE 24 MMOL/L (21-32); CHLORIDE 106 MMOL/L (98-107); CREATININE SERUM 0.96 MG/DL (0.60-1.30); GFR ESTIMATED > 60; GLUCOSE 182 MG/DL (70-105); POTASSIUM 4.2 MMOL/L (3.6-5.0); SODIUM 142 MMOL/L (135-145); TOTAL PROTEIN 6.9 GM/DL (6.4-8.2)
[~2020-12-26 08:45] MED LIST changes: -LIDOCAINE 1% INJ 20 ML 20 ML VIAL INJ ONE; -LIDOCAINE 1% INJ 20 ML 20 ML VIAL ONE
[2020-12-26 08:57] LABS: BASOPHILS % (AUTO) 0 % (0-10); EOSINOPHILS # (AUTO) 0.2 10^3/uL (0.0-0.3); EOSINOPHILS % (AUTO) 3 % (0-10); HEMATOCRIT 42 % (40-54); HEMOGLOBIN 13.8 g/dL (13.3-17.7); LYMPHOCYTES # (AUTO) 1.5 10^3/uL (1.0-4.0); LYMPHOCYTES % (AUTO) 23 % (12-44); MEAN CORPUSCULAR HEMOGLOBIN 30 pg (25-34); MEAN CORPUSCULAR HGB CONC 33 g/dL (32-36); MEAN CORPUSCULAR VOLUME 91 fL (80-99); MEAN PLATELET VOLUME 9.8 fL (9.0-12.2); MONOCYTES # (AUTO) 0.6 10^3/uL (0.0-1.0); MONOCYTES % (AUTO) 9 % (0-12); NEUTROPHILS # (AUTO) 4.1 10^3/uL (1.8-7.8); NEUTROPHILS % (AUTO) 64 % (42-75); PLATELET COUNT 337 10^3/uL (130-400); WHITE BLOOD COUNT 6.4 10^3/uL (4.3-11.0)
[2020-12-26 09:16] LABS: ALANINE AMINOTRANSFERASE 18 U/L (0-55); ALBUMIN 4.2 GM/DL (3.2-4.5); ALKALINE PHOSPHATASE 57 U/L (40-136); BILIRUBIN,TOTAL 0.3 MG/DL (0.1-1.0); BUN/CREATININE RATIO 15; CARBON DIOXIDE 22 MMOL/L (21-32); CHLORIDE 109 MMOL/L (98-107); CREATININE SERUM 0.94 MG/DL (0.60-1.30); GFR ESTIMATED > 60; GLUCOSE 132 MG/DL (70-105); POTASSIUM 4.5 MMOL/L (3.6-5.0); SODIUM 142 MMOL/L (135-145); TOTAL PROTEIN 6.9 GM/DL (6.4-8.2)
== END 2021-01-31 | disposition home or self-care (01) ==
LOC: ONC 08:45
PROVIDERS: ATTEND Internal Medicine Hematology & Oncology
DX: C85.13 Unspecified B-cell lymphoma, intra-abdominal lymph nodes (principal); I89.0 Lymphedema, not elsewhere classified; I10 Essential (primary) hypertension; I25.10 Atherosclerotic heart disease of native coronary artery without angina pectoris; M51.34 Other intervertebral disc degeneration, thoracic region; E78.5 Hyperlipidemia, unspecified; E11.40 Type 2 diabetes mellitus with diabetic neuropathy, unspecified; Z79.82 Long term (current) use of aspirin; Z92.21 Personal history of antineoplastic chemotherapy; Z79.899 Other long term (current) drug therapy; Z79.84 Long term (current) use of oral hypoglycemic drugs
CPT/HCPCS: 80053; 83615; 85025; G0463; 36591; 99213

== ENCOUNTER → 2021-05-15 | Outpatient (RCR) | payer MEDICARE ==
[2021-02-14 09:15] LABS: BASOPHILS % (AUTO) 1 % (0-10); EOSINOPHILS # (AUTO) 0.1 10^3/uL (0.0-0.3); EOSINOPHILS % (AUTO) 2 % (0-10); HEMATOCRIT 36 % (40-54); HEMOGLOBIN 11.3 g/dL (13.3-17.7); LYMPHOCYTES # (AUTO) 1.1 10^3/uL (1.0-4.0); LYMPHOCYTES % (AUTO) 19 % (12-44); MEAN CORPUSCULAR HEMOGLOBIN 31 pg (25-34); MEAN CORPUSCULAR HGB CONC 32 g/dL (32-36); MEAN CORPUSCULAR VOLUME 99 fL (80-99); MEAN PLATELET VOLUME 10.2 fL (9.0-12.2); MONOCYTES # (AUTO) 0.5 10^3/uL (0.0-1.0); MONOCYTES % (AUTO) 10 % (0-12); NEUTROPHILS # (AUTO) 3.7 10^3/uL (1.8-7.8); NEUTROPHILS % (AUTO) 68 % (42-75); PLATELET COUNT 248 10^3/uL (130-400); WHITE BLOOD COUNT 5.4 10^3/uL (4.3-11.0)
[2021-02-14 09:38] LABS: ALANINE AMINOTRANSFERASE 18 U/L (0-55); ALBUMIN 3.8 GM/DL (3.2-4.5); ALKALINE PHOSPHATASE 60 U/L (40-136); BILIRUBIN,TOTAL 0.7 MG/DL (0.1-1.0); BUN/CREATININE RATIO 17; CALCIUM 9.2 MG/DL (8.5-10.1); CARBON DIOXIDE 22 MMOL/L (21-32); CHLORIDE 110 MMOL/L (98-107); CREATININE SERUM 0.89 MG/DL (0.60-1.30); GFR ESTIMATED > 60; GLUCOSE 165 MG/DL (70-105); POTASSIUM 4.8 MMOL/L (3.6-5.0); SODIUM 139 MMOL/L (135-145); TOTAL PROTEIN 5.9 GM/DL (6.4-8.2)
[2021-02-21 10:25] LABS: BASOPHILS % (AUTO) 1 % (0-10); EOSINOPHILS # (AUTO) 0.1 10^3/uL (0.0-0.3); EOSINOPHILS % (AUTO) 2 % (0-10); HEMATOCRIT 37 % (40-54); HEMOGLOBIN 11.7 g/dL (13.3-17.7); LYMPHOCYTES # (AUTO) 1.5 10^3/uL (1.0-4.0); LYMPHOCYTES % (AUTO) 27 % (12-44); MEAN CORPUSCULAR HEMOGLOBIN 33 pg (25-34); MEAN CORPUSCULAR HGB CONC 32 g/dL (32-36); MEAN CORPUSCULAR VOLUME 104 fL (80-99); MEAN PLATELET VOLUME 10.7 fL (9.0-12.2); MONOCYTES # (AUTO) 0.5 10^3/uL (0.0-1.0); MONOCYTES % (AUTO) 9 % (0-12); NEUTROPHILS # (AUTO) 3.5 10^3/uL (1.8-7.8); NEUTROPHILS % (AUTO) 61 % (42-75); PLATELET COUNT 247 10^3/uL (130-400); WHITE BLOOD COUNT 5.6 10^3/uL (4.3-11.0)
[2021-02-21 10:56] LABS: BILIRUBIN,TOTAL 0.6 MG/DL (0.1-1.0); CALCIUM 9.2 MG/DL (8.5-10.1); CREATININE SERUM 0.94 MG/DL (0.60-1.30); POTASSIUM 4.4 MMOL/L (3.6-5.0); TOTAL PROTEIN 6.6 GM/DL (6.4-8.2)
[2021-03-07 09:15] LABS: BASOPHILS % (AUTO) 0 % (0-10); EOSINOPHILS # (AUTO) 0.1 10^3/uL (0.0-0.3); EOSINOPHILS % (AUTO) 2 % (0-10); HEMATOCRIT 39 % (40-54); HEMOGLOBIN 12.7 g/dL (13.3-17.7); LYMPHOCYTES # (AUTO) 1.7 10^3/uL (1.0-4.0); LYMPHOCYTES % (AUTO) 32 % (12-44); MEAN CORPUSCULAR HEMOGLOBIN 32 pg (25-34); MEAN CORPUSCULAR HGB CONC 33 g/dL (32-36); MEAN CORPUSCULAR VOLUME 99 fL (80-99); MEAN PLATELET VOLUME 9.9 fL (9.0-12.2); MONOCYTES # (AUTO) 0.5 10^3/uL (0.0-1.0); MONOCYTES % (AUTO) 10 % (0-12); NEUTROPHILS % (AUTO) 55 % (42-75); PLATELET COUNT 222 10^3/uL (130-400); WHITE BLOOD COUNT 5.3 10^3/uL (4.3-11.0)
[2021-03-07 09:37] LABS: ALBUMIN 3.7 GM/DL (3.2-4.5); BILIRUBIN,TOTAL 0.4 MG/DL (0.1-1.0); CALCIUM 9.2 MG/DL (8.5-10.1); CREATININE SERUM 0.88 MG/DL (0.60-1.30); POTASSIUM 4.1 MMOL/L (3.6-5.0); TOTAL PROTEIN 6.1 GM/DL (6.4-8.2)
[2021-03-14 09:02] LABS: BASOPHILS % (AUTO) 0 % (0-10); EOSINOPHILS # (AUTO) 0.1 10^3/uL (0.0-0.3); EOSINOPHILS % (AUTO) 2 % (0-10); HEMATOCRIT 38 % (40-54); HEMOGLOBIN 12.6 g/dL (13.3-17.7); LYMPHOCYTES # (AUTO) 1.5 10^3/uL (1.0-4.0); LYMPHOCYTES % (AUTO) 32 % (12-44); MEAN CORPUSCULAR HEMOGLOBIN 33 pg (25-34); MEAN CORPUSCULAR HGB CONC 33 g/dL (32-36); MEAN CORPUSCULAR VOLUME 98 fL (80-99); MEAN PLATELET VOLUME 9.9 fL (9.0-12.2); MONOCYTES # (AUTO) 0.5 10^3/uL (0.0-1.0); MONOCYTES % (AUTO) 11 % (0-12); NEUTROPHILS # (AUTO) 2.5 10^3/uL (1.8-7.8); NEUTROPHILS % (AUTO) 55 % (42-75); PLATELET COUNT 202 10^3/uL (130-400); WHITE BLOOD COUNT 4.6 10^3/uL (4.3-11.0)
[2021-03-14 09:15] LABS: ALBUMIN 3.9 GM/DL (3.2-4.5); POTASSIUM 4.4 MMOL/L (3.6-5.0)
[2021-03-14 09:16] LABS: CALCIUM 9.4 MG/DL (8.5-10.1)
[2021-03-14 09:19] LABS: BILIRUBIN,TOTAL 0.5 MG/DL (0.1-1.0)
[2021-03-14 09:21] LABS: CREATININE SERUM 0.89 MG/DL (0.60-1.30)
[2021-03-21 09:22] LABS: BASOPHILS % (AUTO) 0 % (0-10); EOSINOPHILS # (AUTO) 0.1 10^3/uL (0.0-0.3); EOSINOPHILS % (AUTO) 2 % (0-10); HEMATOCRIT 39 % (40-54); HEMOGLOBIN 12.8 g/dL (13.3-17.7); LYMPHOCYTES # (AUTO) 1.9 10^3/uL (1.0-4.0); LYMPHOCYTES % (AUTO) 40 % (12-44); MEAN CORPUSCULAR HEMOGLOBIN 32 pg (25-34); MEAN CORPUSCULAR HGB CONC 33 g/dL (32-36); MEAN CORPUSCULAR VOLUME 98 fL (80-99); MEAN PLATELET VOLUME 10.5 fL (9.0-12.2); MONOCYTES # (AUTO) 0.5 10^3/uL (0.0-1.0); MONOCYTES % (AUTO) 10 % (0-12); NEUTROPHILS # (AUTO) 2.2 10^3/uL (1.8-7.8); NEUTROPHILS % (AUTO) 47 % (42-75); PLATELET COUNT 223 10^3/uL (130-400); WHITE BLOOD COUNT 4.7 10^3/uL (4.3-11.0)
[2021-03-21 09:42] LABS: BILIRUBIN,TOTAL 0.5 MG/DL (0.1-1.0); CALCIUM 9.6 MG/DL (8.5-10.1); CREATININE SERUM 0.84 MG/DL (0.60-1.30); POTASSIUM 4.2 MMOL/L (3.6-5.0); TOTAL PROTEIN 6.4 GM/DL (6.4-8.2)
[2021-03-28 09:54] LABS: BASOPHILS % (AUTO) 0 % (0-10); EOSINOPHILS # (AUTO) 0.1 10^3/uL (0.0-0.3); EOSINOPHILS % (AUTO) 1 % (0-10); HEMATOCRIT 40 % (40-54); HEMOGLOBIN 13.1 g/dL (13.3-17.7); LYMPHOCYTES # (AUTO) 1.4 10^3/uL (1.0-4.0); LYMPHOCYTES % (AUTO) 30 % (12-44); MEAN CORPUSCULAR HEMOGLOBIN 32 pg (25-34); MEAN CORPUSCULAR HGB CONC 33 g/dL (32-36); MEAN CORPUSCULAR VOLUME 100 fL (80-99); MEAN PLATELET VOLUME 10.1 fL (9.0-12.2); MONOCYTES # (AUTO) 0.5 10^3/uL (0.0-1.0); MONOCYTES % (AUTO) 10 % (0-12); NEUTROPHILS # (AUTO) 2.8 10^3/uL (1.8-7.8); NEUTROPHILS % (AUTO) 59 % (42-75); PLATELET COUNT 219 10^3/uL (130-400); WHITE BLOOD COUNT 4.7 10^3/uL (4.3-11.0)
[2021-03-28 10:18] LABS: ALBUMIN 4.1 GM/DL (3.2-4.5); BILIRUBIN,TOTAL 0.5 MG/DL (0.1-1.0); CALCIUM 9.7 MG/DL (8.5-10.1); CREATININE SERUM 0.83 MG/DL (0.60-1.30); POTASSIUM 4.8 MMOL/L (3.6-5.0); TOTAL PROTEIN 6.4 GM/DL (6.4-8.2)
[2021-04-04 10:20] LABS: BASOPHILS % (AUTO) 0 % (0-10); EOSINOPHILS # (AUTO) 0.2 10^3/uL (0.0-0.3); EOSINOPHILS % (AUTO) 3 % (0-10); HEMATOCRIT 41 % (40-54); HEMOGLOBIN 13.3 g/dL (13.3-17.7); LYMPHOCYTES # (AUTO) 1.7 10^3/uL (1.0-4.0); LYMPHOCYTES % (AUTO) 21 % (12-44); MEAN CORPUSCULAR HEMOGLOBIN 32 pg (25-34); MEAN CORPUSCULAR HGB CONC 32 g/dL (32-36); MEAN CORPUSCULAR VOLUME 99 fL (80-99); MONOCYTES # (AUTO) 0.8 10^3/uL (0.0-1.0); MONOCYTES % (AUTO) 9 % (0-12); NEUTROPHILS # (AUTO) 5.4 10^3/uL (1.8-7.8); NEUTROPHILS % (AUTO) 66 % (42-75); PLATELET COUNT 244 10^3/uL (130-400); WHITE BLOOD COUNT 8.2 10^3/uL (4.3-11.0)
[2021-04-04 10:40] LABS: ALBUMIN 4.3 GM/DL (3.2-4.5); BILIRUBIN,TOTAL 0.5 MG/DL (0.1-1.0); CALCIUM 10.2 MG/DL (8.5-10.1); CREATININE SERUM 0.87 MG/DL (0.60-1.30); POTASSIUM 4.6 MMOL/L (3.6-5.0); TOTAL PROTEIN 6.7 GM/DL (6.4-8.2)
[2021-04-26 15:29] LABS: BASOPHILS % (AUTO) 1 % (0-10); EOSINOPHILS # (AUTO) 0.1 10^3/uL (0.0-0.3); EOSINOPHILS % (AUTO) 2 % (0-10); HEMATOCRIT 31 % (40-54); HEMOGLOBIN 10.2 g/dL (13.3-17.7); LYMPHOCYTES # (AUTO) 1.3 X 10^3 (1.0-4.0); LYMPHOCYTES % (AUTO) 23 % (12-44); MEAN CORPUSCULAR HEMOGLOBIN 33 pg (25-34); MEAN CORPUSCULAR HGB CONC 33 g/dL (32-36); MEAN CORPUSCULAR VOLUME 102 fL (80-99); MEAN PLATELET VOLUME 9.9 fL (9.0-12.2); MONOCYTES # (AUTO) 0.6 X 10^3 (0.0-1.0); MONOCYTES % (AUTO) 10 % (0-12); NEUTROPHILS # (AUTO) 3.7 X 10^3 (1.8-7.8); NEUTROPHILS % (AUTO) 65 % (42-75); PLATELET COUNT 278 10^3/uL (130-400); WHITE BLOOD COUNT 5.8 10^3/uL (4.3-11.0)
[2021-04-26 15:32] LABS: ALBUMIN 3.8 GM/DL (3.2-4.5); BILIRUBIN,TOTAL 0.5 MG/DL (0.1-1.0); CALCIUM 9.8 MG/DL (8.5-10.1); CREATININE SERUM 1.01 MG/DL (0.60-1.30); POTASSIUM 4.7 MMOL/L (3.6-5.0); TOTAL PROTEIN 5.9 GM/DL (6.4-8.2)
[~2021-05-15] VITALS: Ht 172.7 cm; Wt 78.5 kg
[~2021-05-15] MED LIST changes: +ACETAMINOPHEN 325 MG TAB (TYLENOL) CANCER CTR PO PRN; +BENDAMUSTINE HCL 140 MG in NS (IVPB) CANCER CENTER 50 ML IV SCH; -CLIN150C18 PO; +CLIN150C20 PO; +FAMOTIDINE 20MG/2ML IV (CANCER CTR) IV SCH; +FAMOTIDINE 20MG/2ML IV (CANCER CTR) ONE; +FOSAPREPITANT (CANCER CENTER) 150 MG in NS (IVPB) CANCER CENTER ONLY 150 ML IV SCH; +LORazepam INJ 2 MG/ML VIAL CANCER CTR IV SCH; +LORazepam INJ 2 MG/ML VIAL CANCER CTR ONE; +NS IV 1000 ML (CANCER CTR) IV SCH; +PEGFILGRASTIM-BMEZ 6 MG/0.6 ML ZIEXTENZO SQ SCH; +RITUXIMAB-ABBS 500 MG, RITUXIMAB-ABBS 200 MG in NS (IVPB) CANCER CENTER ONLY 150 ML IV SCH; +SODIUM CHLORIDE IV SCH; +[UNRECOGNIZED DRUG - OTHER] IV SCH; +diphenhydrAMINE 25 MG TAB (BENADRYL) CANCER CENTER PO SCH; +diphenhydrAMINE 50 MG/ML INJ (CANCER CENTER) IV PRN; +diphenhydrAMINE 50 MG/ML INJ (CANCER CENTER) ONE
[2021-05-15 08:33] LABS: BASOPHILS % (AUTO) 0 % (0-10); EOSINOPHILS # (AUTO) 0.1 10^3/uL (0.0-0.3); EOSINOPHILS % (AUTO) 1 % (0-10); HEMATOCRIT 34 % (40-54); HEMOGLOBIN 11.2 g/dL (13.3-17.7); LYMPHOCYTES % (AUTO) 25 % (12-44); MEAN CORPUSCULAR HEMOGLOBIN 33 pg (25-34); MEAN CORPUSCULAR HGB CONC 33 g/dL (32-36); MEAN CORPUSCULAR VOLUME 103 fL (80-99); MONOCYTES # (AUTO) 0.5 10^3/uL (0.0-1.0); MONOCYTES % (AUTO) 12 % (0-12); NEUTROPHILS # (AUTO) 2.4 10^3/uL (1.8-7.8); NEUTROPHILS % (AUTO) 61 % (42-75); PLATELET COUNT 205 10^3/uL (130-400)
[2021-05-15 08:41] LABS: ALBUMIN 3.9 GM/DL (3.2-4.5)
[2021-05-15 08:43] LABS: CALCIUM 9.4 MG/DL (8.5-10.1)
[2021-05-15 08:44] LABS: TOTAL PROTEIN 5.8 GM/DL (6.4-8.2)
[2021-05-15 08:46] LABS: BILIRUBIN,TOTAL 0.5 MG/DL (0.1-1.0)
[2021-05-15 08:47] LABS: CREATININE SERUM 0.81 MG/DL (0.60-1.30)
[2021-05-15 08:51] LABS: MAGNESIUM 1.5 MG/DL (1.6-2.4)
== END | disposition home or self-care (01) ==
LOC: ONC 02-14 09:44
PROVIDERS: ATTEND Internal Medicine Hematology & Oncology
DX: Z51.11 Encounter for antineoplastic chemotherapy (principal); C85.13 Unspecified B-cell lymphoma, intra-abdominal lymph nodes; I89.0 Lymphedema, not elsewhere classified; I10 Essential (primary) hypertension; I25.10 Atherosclerotic heart disease of native coronary artery without angina pectoris; E78.5 Hyperlipidemia, unspecified; E11.40 Type 2 diabetes mellitus with diabetic neuropathy, unspecified; Z79.82 Long term (current) use of aspirin; Z92.21 Personal history of antineoplastic chemotherapy; Z79.899 Other long term (current) drug therapy; Z79.84 Long term (current) use of oral hypoglycemic drugs; Z92.3 Personal history of irradiation
CPT/HCPCS: 36591; 80053; 82784; 83615; 83735; 84153; 84550; 85025; 96367; 96375; 96411; 96413; 96417; 99213

== ENCOUNTER → 2021-05-29 | Outpatient (CLI) | payer MEDICARE ==
[~2021-05-29] MED LIST changes: -ACETAMINOPHEN 325 MG TAB (TYLENOL) CANCER CTR PO PRN; -BENDAMUSTINE HCL 140 MG in NS (IVPB) CANCER CENTER 50 ML IV SCH; -FAMOTIDINE 20MG/2ML IV (CANCER CTR) IV SCH; -FAMOTIDINE 20MG/2ML IV (CANCER CTR) ONE; -FOSAPREPITANT (CANCER CENTER) 150 MG in NS (IVPB) CANCER CENTER ONLY 150 ML IV SCH; -LORazepam INJ 2 MG/ML VIAL CANCER CTR IV SCH; -LORazepam INJ 2 MG/ML VIAL CANCER CTR ONE; -NS IV 1000 ML (CANCER CTR) IV SCH; -PEGFILGRASTIM-BMEZ 6 MG/0.6 ML ZIEXTENZO SQ SCH; -RITUXIMAB-ABBS 500 MG, RITUXIMAB-ABBS 200 MG in NS (IVPB) CANCER CENTER ONLY 150 ML IV SCH; -SODIUM CHLORIDE IV SCH; -[UNRECOGNIZED DRUG - OTHER] IV SCH; -diphenhydrAMINE 25 MG TAB (BENADRYL) CANCER CENTER PO SCH; -diphenhydrAMINE 50 MG/ML INJ (CANCER CENTER) IV PRN; -diphenhydrAMINE 50 MG/ML INJ (CANCER CENTER) ONE
== END ==
LOC: LAB 09:02
PROVIDERS: ATTEND Family Medicine
DX: E11.9 Type 2 diabetes mellitus without complications (principal)
CPT/HCPCS: 36415; 83036

== ENCOUNTER 2021-07-24 09:13 | Outpatient (RCR) | payer MEDICARE ==
[2021-05-22 09:41] LABS: BASOPHILS # (AUTO) 0.2 10^3/uL (0.0-0.1); BASOPHILS % (AUTO) 1 % (0-10); EOSINOPHILS # (AUTO) 0.3 10^3/uL (0.0-0.3); EOSINOPHILS % (AUTO) 1 % (0-10); HEMATOCRIT 37 % (40-54); LYMPHOCYTES # (AUTO) 0.8 10^3/uL (1.0-4.0); LYMPHOCYTES % (AUTO) 3 % (12-44); MEAN CORPUSCULAR HEMOGLOBIN 33 pg (25-34); MEAN CORPUSCULAR HGB CONC 33 g/dL (32-36); MEAN CORPUSCULAR VOLUME 101 fL (80-99); MEAN PLATELET VOLUME 9.9 fL (9.0-12.2); MONOCYTES # (AUTO) 1.4 10^3/uL (0.0-1.0); MONOCYTES % (AUTO) 6 % (0-12); NEUTROPHILS # (AUTO) 20.2 10^3/uL (1.8-7.8); NEUTROPHILS % (AUTO) 87 % (42-75); PLATELET COUNT 190 10^3/uL (130-400); WHITE BLOOD COUNT 23.3 10^3/uL (4.3-11.0)
[2021-05-22 10:05] LABS: CREATININE SERUM 0.86 MG/DL (0.60-1.30); MAGNESIUM 1.6 MG/DL (1.6-2.4); POTASSIUM 3.7 MMOL/L (3.6-5.0)
[2021-05-22 10:20] LABS: CALCIUM 9.9 MG/DL (8.5-10.1)
[2021-05-29 09:17] LABS: BASOPHILS % (AUTO) 1 % (0-10); EOSINOPHILS # (AUTO) 0.1 10^3/uL (0.0-0.3); EOSINOPHILS % (AUTO) 2 % (0-10); HEMATOCRIT 36 % (40-54); HEMOGLOBIN 11.6 g/dL (13.3-17.7); LYMPHOCYTES # (AUTO) 0.6 10^3/uL (1.0-4.0); LYMPHOCYTES % (AUTO) 9 % (12-44); MEAN CORPUSCULAR HEMOGLOBIN 33 pg (25-34); MEAN CORPUSCULAR HGB CONC 32 g/dL (32-36); MEAN CORPUSCULAR VOLUME 102 fL (80-99); MEAN PLATELET VOLUME 10.3 fL (9.0-12.2); MONOCYTES # (AUTO) 0.4 10^3/uL (0.0-1.0); MONOCYTES % (AUTO) 6 % (0-12); NEUTROPHILS # (AUTO) 5.9 10^3/uL (1.8-7.8); NEUTROPHILS % (AUTO) 82 % (42-75); PLATELET COUNT 259 10^3/uL (130-400); WHITE BLOOD COUNT 7.2 10^3/uL (4.3-11.0)
[2021-05-29 09:36] LABS: CALCIUM 9.4 MG/DL (8.5-10.1); CREATININE SERUM 0.77 MG/DL (0.60-1.30); MAGNESIUM 1.7 MG/DL (1.6-2.4); POTASSIUM 4.4 MMOL/L (3.6-5.0)
[2021-06-05 09:09] LABS: BASOPHILS # (AUTO) 0.1 10^3/uL (0.0-0.1); BASOPHILS % (AUTO) 1 % (0-10); EOSINOPHILS # (AUTO) 0.1 10^3/uL (0.0-0.3); EOSINOPHILS % (AUTO) 2 % (0-10); HEMATOCRIT 36 % (40-54); HEMOGLOBIN 12.1 g/dL (13.3-17.7); LYMPHOCYTES # (AUTO) 0.8 10^3/uL (1.0-4.0); LYMPHOCYTES % (AUTO) 14 % (12-44); MEAN CORPUSCULAR HEMOGLOBIN 33 pg (25-34); MEAN CORPUSCULAR HGB CONC 33 g/dL (32-36); MEAN CORPUSCULAR VOLUME 99 fL (80-99); MEAN PLATELET VOLUME 10.4 fL (9.0-12.2); MONOCYTES # (AUTO) 0.8 10^3/uL (0.0-1.0); MONOCYTES % (AUTO) 13 % (0-12); NEUTROPHILS % (AUTO) 69 % (42-75); PLATELET COUNT 292 10^3/uL (130-400); WHITE BLOOD COUNT 5.7 10^3/uL (4.3-11.0)
[2021-06-05 09:29] LABS: ALBUMIN 4.1 GM/DL (3.2-4.5); BILIRUBIN,TOTAL 0.3 MG/DL (0.1-1.0); CALCIUM 9.7 MG/DL (8.5-10.1); CREATININE SERUM 0.88 MG/DL (0.60-1.30); MAGNESIUM 1.9 MG/DL (1.6-2.4); POTASSIUM 4.2 MMOL/L (3.6-5.0); TOTAL PROTEIN 6.6 GM/DL (6.4-8.2); URIC ACID 3.9 MG/DL (2.6-7.2)
[2021-06-12 10:31] LABS: BASOPHILS % (AUTO) 0 % (0-10); EOSINOPHILS # (AUTO) 0.3 10^3/uL (0.0-0.3); EOSINOPHILS % (AUTO) 1 % (0-10); HEMATOCRIT 40 % (40-54); HEMOGLOBIN 13.3 g/dL (13.3-17.7); LYMPHOCYTES # (AUTO) 0.5 10^3/uL (1.0-4.0); LYMPHOCYTES % (AUTO) 2 % (12-44); MEAN CORPUSCULAR HEMOGLOBIN 32 pg (25-34); MEAN CORPUSCULAR HGB CONC 33 g/dL (32-36); MEAN CORPUSCULAR VOLUME 97 fL (80-99); MEAN PLATELET VOLUME 10.6 fL (9.0-12.2); MONOCYTES # (AUTO) 1.9 10^3/uL (0.0-1.0); MONOCYTES % (AUTO) 7 % (0-12); NEUTROPHILS # (AUTO) 23.2 10^3/uL (1.8-7.8); NEUTROPHILS % (AUTO) 87 % (42-75); PLATELET COUNT 205 10^3/uL (130-400); WHITE BLOOD COUNT 26.6 10^3/uL (4.3-11.0)
[2021-06-12 10:57] LABS: CALCIUM 9.6 MG/DL (8.5-10.1); CREATININE SERUM 0.97 MG/DL (0.60-1.30); MAGNESIUM 1.6 MG/DL (1.6-2.4); POTASSIUM 4.1 MMOL/L (3.6-5.0)
[2021-06-19 08:56] LABS: BASOPHILS # (AUTO) 0.1 10^3/uL (0.0-0.1); BASOPHILS % (AUTO) 1 % (0-10); EOSINOPHILS # (AUTO) 0.2 10^3/uL (0.0-0.3); EOSINOPHILS % (AUTO) 2 % (0-10); HEMATOCRIT 36 % (40-54); HEMOGLOBIN 11.7 g/dL (13.3-17.7); LYMPHOCYTES # (AUTO) 0.7 10^3/uL (1.0-4.0); LYMPHOCYTES % (AUTO) 6 % (12-44); MEAN CORPUSCULAR HEMOGLOBIN 32 pg (25-34); MEAN CORPUSCULAR HGB CONC 33 g/dL (32-36); MEAN CORPUSCULAR VOLUME 98 fL (80-99); MEAN PLATELET VOLUME 10.3 fL (9.0-12.2); MONOCYTES # (AUTO) 0.7 10^3/uL (0.0-1.0); MONOCYTES % (AUTO) 6 % (0-12); NEUTROPHILS # (AUTO) 8.9 10^3/uL (1.8-7.8); NEUTROPHILS % (AUTO) 83 % (42-75); PLATELET COUNT 245 10^3/uL (130-400); WHITE BLOOD COUNT 10.7 10^3/uL (4.3-11.0)
[2021-06-19 09:14] LABS: CALCIUM 9.7 MG/DL (8.5-10.1); CREATININE SERUM 0.8 MG/DL (0.60-1.30); POTASSIUM 4.2 MMOL/L (3.6-5.0)
[2021-06-19 10:04] LABS: MAGNESIUM 1.5 MG/DL (1.6-2.4)
[2021-06-26 09:56] LABS: BASOPHILS % (AUTO) 1 % (0-10); EOSINOPHILS # (AUTO) 0.1 10^3/uL (0.0-0.3); EOSINOPHILS % (AUTO) 2 % (0-10); HEMATOCRIT 36 % (40-54); HEMOGLOBIN 11.8 g/dL (13.3-17.7); LYMPHOCYTES # (AUTO) 0.8 10^3/uL (1.0-4.0); LYMPHOCYTES % (AUTO) 13 % (12-44); MEAN CORPUSCULAR HEMOGLOBIN 33 pg (25-34); MEAN CORPUSCULAR HGB CONC 33 g/dL (32-36); MEAN CORPUSCULAR VOLUME 98 fL (80-99); MEAN PLATELET VOLUME 9.6 fL (9.0-12.2); MONOCYTES # (AUTO) 0.7 10^3/uL (0.0-1.0); MONOCYTES % (AUTO) 12 % (0-12); NEUTROPHILS # (AUTO) 4.4 10^3/uL (1.8-7.8); NEUTROPHILS % (AUTO) 71 % (42-75); PLATELET COUNT 228 10^3/uL (130-400); WHITE BLOOD COUNT 6.2 10^3/uL (4.3-11.0)
[2021-06-26 10:27] LABS: BILIRUBIN,TOTAL 0.4 MG/DL (0.1-1.0); CALCIUM 8.9 MG/DL (8.5-10.1); CREATININE SERUM 0.77 MG/DL (0.60-1.30); MAGNESIUM 1.5 MG/DL (1.6-2.4); POTASSIUM 4.2 MMOL/L (3.6-5.0); TOTAL PROTEIN 5.8 GM/DL (6.4-8.2)
[2021-07-17 09:34] LABS: BASOPHILS % (AUTO) 0 % (0-10); EOSINOPHILS # (AUTO) 0.1 10^3/uL (0.0-0.3); EOSINOPHILS % (AUTO) 2 % (0-10); HEMATOCRIT 35 % (40-54); LYMPHOCYTES # (AUTO) 1.1 10^3/uL (1.0-4.0); LYMPHOCYTES % (AUTO) 18 % (12-44); MEAN CORPUSCULAR HEMOGLOBIN 34 pg (25-34); MEAN CORPUSCULAR HGB CONC 34 g/dL (32-36); MEAN CORPUSCULAR VOLUME 99 fL (80-99); MEAN PLATELET VOLUME 9.8 fL (9.0-12.2); MONOCYTES # (AUTO) 0.6 10^3/uL (0.0-1.0); MONOCYTES % (AUTO) 11 % (0-12); NEUTROPHILS # (AUTO) 4.1 10^3/uL (1.8-7.8); NEUTROPHILS % (AUTO) 69 % (42-75); PLATELET COUNT 209 10^3/uL (130-400); WHITE BLOOD COUNT 5.9 10^3/uL (4.3-11.0)
[2021-07-17 09:58] LABS: ALBUMIN 4.2 GM/DL (3.2-4.5); BILIRUBIN,TOTAL 0.6 MG/DL (0.1-1.0); CALCIUM 9.7 MG/DL (8.5-10.1); CREATININE SERUM 0.89 MG/DL (0.60-1.30); MAGNESIUM 1.6 MG/DL (1.6-2.4); POTASSIUM 4.3 MMOL/L (3.6-5.0); TOTAL PROTEIN 6.6 GM/DL (6.4-8.2)
[~2021-07-24 09:13] MED LIST changes: +ACETAMINOPHEN 325 MG TAB (TYLENOL) CANCER CTR PO PRN; +BENDAMUSTINE HCL 140 MG in NS (IVPB) CANCER CENTER 50 ML IV SCH; +FAMOTIDINE 20MG/2ML IV (CANCER CTR) IV SCH; +FOSAPREPITANT (CANCER CENTER) 150 MG in NS (IVPB) CANCER CENTER ONLY 150 ML IV SCH; +LORazepam INJ 2 MG/ML VIAL CANCER CTR IV SCH; +NS IV 1000 ML (CANCER CTR) IV SCH; +PEGFILGRASTIM-BMEZ 6 MG/0.6 ML ZIEXTENZO SQ SCH; +RITUXIMAB-ABBS 500 MG, RITUXIMAB-ABBS 200 MG in NS (IVPB) CANCER CENTER ONLY 150 ML IV SCH; +SODIUM CHLORIDE IV SCH; +[UNRECOGNIZED DRUG - OTHER] IV SCH; +[UNRECOGNIZED DRUG - OTHER] IV SCH; +diphenhydrAMINE 25 MG TAB (BENADRYL) CANCER CENTER PO SCH; +diphenhydrAMINE 50 MG/ML INJ (CANCER CENTER) IV PRN
[2021-07-24 09:29] LABS: BASOPHILS % (AUTO) 0 % (0-10); EOSINOPHILS # (AUTO) 0.2 10^3/uL (0.0-0.3); EOSINOPHILS % (AUTO) 4 % (0-10); HEMATOCRIT 37 % (40-54); HEMOGLOBIN 12.3 g/dL (13.3-17.7); LYMPHOCYTES # (AUTO) 0.4 10^3/uL (1.0-4.0); LYMPHOCYTES % (AUTO) 8 % (12-44); MEAN CORPUSCULAR HEMOGLOBIN 33 pg (25-34); MEAN CORPUSCULAR HGB CONC 33 g/dL (32-36); MEAN CORPUSCULAR VOLUME 99 fL (80-99); MEAN PLATELET VOLUME 9.6 fL (9.0-12.2); MONOCYTES # (AUTO) 0.6 10^3/uL (0.0-1.0); MONOCYTES % (AUTO) 11 % (0-12); NEUTROPHILS # (AUTO) 4.1 10^3/uL (1.8-7.8); NEUTROPHILS % (AUTO) 76 % (42-75); PLATELET COUNT 205 10^3/uL (130-400); WHITE BLOOD COUNT 5.4 10^3/uL (4.3-11.0)
[2021-07-24 09:53] LABS: CALCIUM 9.4 MG/DL (8.5-10.1); CREATININE SERUM 0.83 MG/DL (0.60-1.30); MAGNESIUM 1.7 MG/DL (1.6-2.4); POTASSIUM 4.5 MMOL/L (3.6-5.0)
== END 2021-07-27 | disposition home or self-care (01) ==
LOC: ONC 09:13
PROVIDERS: ATTEND Internal Medicine Hematology & Oncology
DX: Z51.11 Encounter for antineoplastic chemotherapy (principal); C85.13 Unspecified B-cell lymphoma, intra-abdominal lymph nodes; I89.0 Lymphedema, not elsewhere classified; I10 Essential (primary) hypertension; I25.10 Atherosclerotic heart disease of native coronary artery without angina pectoris; E78.5 Hyperlipidemia, unspecified; E11.40 Type 2 diabetes mellitus with diabetic neuropathy, unspecified; Z79.899 Other long term (current) drug therapy; Z79.84 Long term (current) use of oral hypoglycemic drugs; Z92.3 Personal history of irradiation
CPT/HCPCS: 36591; 80048; 80053; 83615; 83735; 84550; 85025; 96367; 96372; 96375; 96411; 96413; 96415; 96417

== ENCOUNTER 2021-08-07 08:41 | Outpatient (RCR) | payer MEDICARE ==
[2021-07-31 09:20] LABS: BASOPHILS % (AUTO) 0 % (0-10); EOSINOPHILS # (AUTO) 0.1 10^3/uL (0.0-0.3); EOSINOPHILS % (AUTO) 2 % (0-10); HEMATOCRIT 38 % (40-54); HEMOGLOBIN 12.6 g/dL (13.3-17.7); LYMPHOCYTES # (AUTO) 0.6 10^3/uL (1.0-4.0); LYMPHOCYTES % (AUTO) 11 % (12-44); MEAN CORPUSCULAR HEMOGLOBIN 33 pg (25-34); MEAN CORPUSCULAR HGB CONC 33 g/dL (32-36); MEAN CORPUSCULAR VOLUME 98 fL (80-99); MEAN PLATELET VOLUME 9.6 fL (9.0-12.2); MONOCYTES # (AUTO) 0.7 10^3/uL (0.0-1.0); MONOCYTES % (AUTO) 13 % (0-12); NEUTROPHILS % (AUTO) 73 % (42-75); PLATELET COUNT 238 10^3/uL (130-400); WHITE BLOOD COUNT 5.5 10^3/uL (4.3-11.0)
[2021-07-31 09:44] LABS: CALCIUM 9.2 MG/DL (8.5-10.1); CREATININE SERUM 0.79 MG/DL (0.60-1.30); MAGNESIUM 1.8 MG/DL (1.6-2.4)
[~2021-08-07 08:41] MED LIST changes: -PEGFILGRASTIM-BMEZ 6 MG/0.6 ML ZIEXTENZO SQ SCH; -[UNRECOGNIZED DRUG - OTHER] IV SCH; -diphenhydrAMINE 50 MG/ML INJ (CANCER CENTER) IV PRN
[2021-08-07 09:06] LABS: BASOPHILS % (AUTO) 1 % (0-10); EOSINOPHILS # (AUTO) 0.1 10^3/uL (0.0-0.3); EOSINOPHILS % (AUTO) 3 % (0-10); HEMATOCRIT 37 % (40-54); HEMOGLOBIN 12.7 g/dL (13.3-17.7); LYMPHOCYTES # (AUTO) 0.8 10^3/uL (1.0-4.0); LYMPHOCYTES % (AUTO) 23 % (12-44); MEAN CORPUSCULAR HEMOGLOBIN 32 pg (25-34); MEAN CORPUSCULAR HGB CONC 34 g/dL (32-36); MEAN CORPUSCULAR VOLUME 95 fL (80-99); MONOCYTES # (AUTO) 0.5 10^3/uL (0.0-1.0); MONOCYTES % (AUTO) 15 % (0-12); NEUTROPHILS # (AUTO) 2.1 10^3/uL (1.8-7.8); NEUTROPHILS % (AUTO) 57 % (42-75); PLATELET COUNT 248 10^3/uL (130-400); WHITE BLOOD COUNT 3.6 10^3/uL (4.3-11.0)
[2021-08-07 09:25] LABS: BILIRUBIN,TOTAL 0.4 MG/DL (0.1-1.0); CALCIUM 9.4 MG/DL (8.5-10.1); CREATININE SERUM 0.8 MG/DL (0.60-1.30); MAGNESIUM 1.6 MG/DL (1.6-2.4); POTASSIUM 4.3 MMOL/L (3.6-5.0); TOTAL PROTEIN 6.1 GM/DL (6.4-8.2)
== END 2021-08-27 | disposition home or self-care (01) ==
LOC: ONC 08:41
PROVIDERS: ATTEND Internal Medicine Hematology & Oncology
DX: C85.13 Unspecified B-cell lymphoma, intra-abdominal lymph nodes (principal); I89.0 Lymphedema, not elsewhere classified; I10 Essential (primary) hypertension; I25.10 Atherosclerotic heart disease of native coronary artery without angina pectoris; E78.5 Hyperlipidemia, unspecified; E11.40 Type 2 diabetes mellitus with diabetic neuropathy, unspecified; Z79.899 Other long term (current) drug therapy; Z79.84 Long term (current) use of oral hypoglycemic drugs; Z92.3 Personal history of irradiation
CPT/HCPCS: 80048; 80053; 83615; 83735; 85025

== ENCOUNTER → 2021-12-31 | Outpatient (CLI) | payer MEDICARE ==
[~2021-12-31] MED LIST changes: -ACETAMINOPHEN 325 MG TAB (TYLENOL) CANCER CTR PO PRN; -BENDAMUSTINE HCL 140 MG in NS (IVPB) CANCER CENTER 50 ML IV SCH; -FAMOTIDINE 20MG/2ML IV (CANCER CTR) IV SCH; -FENO134C PO; +FENO134C21 PO; -FOSAPREPITANT (CANCER CENTER) 150 MG in NS (IVPB) CANCER CENTER ONLY 150 ML IV SCH; -LORazepam INJ 2 MG/ML VIAL CANCER CTR IV SCH; -NS IV 1000 ML (CANCER CTR) IV SCH; -RITUXIMAB-ABBS 500 MG, RITUXIMAB-ABBS 200 MG in NS (IVPB) CANCER CENTER ONLY 150 ML IV SCH; -SODIUM CHLORIDE IV SCH; -[UNRECOGNIZED DRUG - OTHER] IV SCH; -diphenhydrAMINE 25 MG TAB (BENADRYL) CANCER CENTER PO SCH
== END ==
LOC: CARD 15:00
PROVIDERS: ATTEND Internal Medicine Cardiovascular Disease
DX: I25.10 Atherosclerotic heart disease of native coronary artery without angina pectoris (principal); I51.7 Cardiomegaly
CPT/HCPCS: 93306

== ENCOUNTER → 2022-01-01 | Outpatient (CLI) | payer MEDICARE, OTHER ==
[~2022-01-01] VITALS: Ht 170 cm; Wt 77.0 kg
[~2022-01-01] MED LIST changes: +REGADENOSON 0.4 MG/5 ML SYR (LEXISCAN) IV ONE
[2022-01-01] MEDS: CATHETER FLUSH 10 ML SYR IVP PRN ×2 (07:55→09:10)
[2022-01-01 09:08] VITALS: BP 159/81
--- NOTE | 2022-01-01 17:51 | STRESS TEST ---
DATE OF SERVICE: 01/01/2022 RESTING AND POST REGADENOSON TECHNETIUM-99M TETROFOSMIN SPECT CT IMAGING ORDERING PHYSICIAN: Dr. Mckeon. PRIMARY PHYSICIAN: Hao Gutierrez DO. CLINICAL DIAGNOSIS: Coronary artery disease. Baseline images were carried out after injection of 10.63 mCi of technetium-99m Tetrofosmin. This was followed by 0.4 mg regadenoson and 30.4 mCi of technetium-99m Tetrofosmin for stress imaging. The electrocardiogram showed sinus rhythm at baseline. It did not change significantly with regadenoson infusion. Review of images at rest and following stress does not indicate any significant perfusion defects consistent with significant myocardial ischemia or infarction. Gated images show normal global left ventricular systolic function with normal regional wall motion. Left ventricular ejection fraction is calculated to be 56%. Left ventricular end diastolic volume is 63 mL. TID is absent (0.9). CONCLUSIONS: 1. No evidence of any significant myocardial ischemia or infarction on this study. 2. Normal regional wall motion. 3. Normal global left ventricular systolic function with a calculated ejection fraction of 56%. Job ID: [id number] DocumentID: [id number] Dictated Date: 01/01/2022 14:38:57 Engineering Professionals Date: 01/01/2022 17:50:55 Dictated By: ADONAY MCKEON MD, MA, FACP, FACC,
== END ==
LOC: CARD 08:15
PROVIDERS: ATTEND Internal Medicine Cardiovascular Disease
DX: I25.10 Atherosclerotic heart disease of native coronary artery without angina pectoris (principal)
CPT/HCPCS: 78452; 93017; A9502

== ENCOUNTER → 2022-08-23 | Outpatient (CLI) | payer MEDICARE, OTHER ==
[~2022-08-23] MED LIST changes: -REGADENOSON 0.4 MG/5 ML SYR (LEXISCAN) IV ONE
[2022-08-23 09:11] LABS: ALBUMIN 3.7 GM/DL (3.2-4.5); BILIRUBIN,TOTAL 0.7 MG/DL (0.1-1.0); CALCIUM 9.2 MG/DL (8.5-10.1); CREATININE SERUM 0.85 MG/DL (0.60-1.30); POTASSIUM 4.2 MMOL/L (3.6-5.0); TOTAL PROTEIN 5.6 GM/DL (6.4-8.2)
== END ==
LOC: LAB 08:31
PROVIDERS: ATTEND Internal Medicine
DX: E78.2 Mixed hyperlipidemia (principal); I65.23 Occlusion and stenosis of bilateral carotid arteries; I25.10 Atherosclerotic heart disease of native coronary artery without angina pectoris; I10 Essential (primary) hypertension; I15.8 Other secondary hypertension
CPT/HCPCS: 36415; 80053; 80061

== ENCOUNTER → 2022-10-09 | Outpatient (CLI) | payer MEDICARE, OTHER | LOC: LAB 11:44 | PROVIDERS: ATTEND Family Medicine | DX: E11.9 Type 2 diabetes mellitus without complications (principal); R06.02 Shortness of breath | CPT/HCPCS: 36415; 83036; 83880 ==

== ENCOUNTER → 2022-11-20 | Outpatient (CLI) | payer MEDICARE, OTHER | LOC: LAB 11:06 | PROVIDERS: ATTEND Family Medicine | DX: R19.7 Diarrhea, unspecified (principal) | CPT/HCPCS: 87015; 87045; 87046; 87324; 87328; 87329; 87449; 87899 ==

== ENCOUNTER → 2022-12-24 | Outpatient (CLI) | payer MEDICARE, OTHER ==
[2022-12-24 08:26] LABS: ALBUMIN 3.7 GM/DL (3.2-4.5); POTASSIUM 4.3 MMOL/L (3.6-5.0)
[2022-12-24 08:28] LABS: CALCIUM 9.1 MG/DL (8.5-10.1)
[2022-12-24 08:29] LABS: TOTAL PROTEIN 5.5 GM/DL (6.4-8.2)
[2022-12-24 08:31] LABS: BILIRUBIN,TOTAL 0.5 MG/DL (0.1-1.0)
[2022-12-24 08:33] LABS: CREATININE SERUM 0.82 MG/DL (0.60-1.30)
== END ==
LOC: LAB 08:04
PROVIDERS: ATTEND Nurse Practitioner Family
DX: E78.2 Mixed hyperlipidemia (principal); I10 Essential (primary) hypertension; I25.10 Atherosclerotic heart disease of native coronary artery without angina pectoris; I65.23 Occlusion and stenosis of bilateral carotid arteries; I15.8 Other secondary hypertension
CPT/HCPCS: 36415; 80053; 80061

== ENCOUNTER 2023-04-29 12:09 | Day surgery (SDC) | payer MEDICARE, OTHER ==
[~2023-04-29] VITALS: Ht 170 cm; Wt 74.8 kg
[~2023-04-29 12:09] MED LIST changes: -ROSU20TA32 PO; +ROSU20TA73 PO
[2023-04-29] MEDS ORDERED: LACTATED RINGERS 1,000 ML 1,000 ML IV STA (12:15)
--- NOTE | 2023-04-29 12:26 | Progress Note-Pre Operative ---
Pre-Operative Progress Note Date H&P Reviewed: Apr 29, 2023 Time H&P Reviewed: 12:25 History & Physical: H&P Reviewed, Patient Examed, No changes noted Pre-Operative Diagnosis: abnormal pet scan SIMIN VOGEL DO Apr 29, 2023 12:26
[2023-04-29 12:55] VITALS: BP 116/66
[2023-04-29 15:05] VITALS: BP 124/59
--- NOTE | 2023-04-29 15:06 | Progress Note-Post Operative ---
Post-Operative Progess Note Surgeon (s)/Remote Inpatient Coder (s) Surgeon SIMIN VOGEL DO Remote Inpatient Coder: n/a Pre-Operative Diagnosis abnormal pet scan Post-Operative Diagnosis colon polyps, diverticulosis, rectal mass Procedure & Operative Findings Date of Procedure 04/29/23 Procedure Performed/Findings colonoscopy w/ hot biopsy polepectomy x7 cold biopsies rectal mass and marjorie inking Anesthesia Type per FORM SETTER Estimated Blood Loss Estimated blood loss (mL): scant Specimens/Packing Specimens Removed polyps, rectal mass SIMIN VOGEL DO Apr 29, 2023 15:06
[2023-04-29 15:10] VITALS: BP 118/56
--- NOTE | 2023-04-29 15:11 | Discharge Inst-Simple/Standard ---
Discharge Inst-Standard Patient Instructions/Follow Up Plan of Care/Instructions/FU: 2 weeks [place] Activity as Tolerated: Yes Discharge Diet: Regular Diet (high fiber ) SIMIN VOGEL DO Apr 29, 2023 15:11
[2023-04-29 15:29] VITALS: BP 118/56
--- NOTE | 2023-04-29 15:49 | Anesthesia-General Post-Op ---
MAC Patient Condition Mental Status/LOC: Same as Preop Cardiovascular: Satisfactory Nausea/Vomiting: Absent Respiratory: Satisfactory Pain: Controlled Complications: Absent Post Op Complications Complications None Follow Up Care/Instructions Patient Instructions None needed. Anesthesiology Discharge Order Discharge Order Patient is doing well, no complaints, stable vital signs, no apparent adverse anesthesia problems. No complications reported per nursing. ASHLEY CUEVAS CRNA Apr 29, 2023 15:49
--- NOTE | 2023-04-30 01:06 | OPERATIVE REPORT ---
DATE OF SERVICE: 04/29/2023 PREOPERATIVE DIAGNOSIS: Abnormal PET/CT scan. POSTOPERATIVE DIAGNOSES: Colon polyps, diverticulosis, rectal mass. PROCEDURE: Colonoscopy with hot biopsy polypectomy x7 and cold biopsies of the rectal mass and Sonya inking. SURGEON: Simin Dodson DO. ANESTHESIA: Per INDUSTRIAL RENDERER. ESTIMATED BLOOD LOSS: Scant. COMPLICATIONS: None. INDICATIONS: The patient is a 78-year-old male with abnormal PET scan. He understands risks and benefits of procedure and wished to proceed. Consent was signed in chart. DESCRIPTION OF PROCEDURE: The patient was taken to endoscopy suite, placed in left lateral recumbent position. Timeout was performed. Digital rectal exam was performed. No palpable polyps, masses or ulcerations. Scope was inserted in the rectum, advanced all the way to the cecum with minimal difficulty. Prep was adequate. Scope was slowly retracted back. No polyps, masses or ulcerations within the cecum. In the ascending colon, there were 2 polyps, which hot biopsy polypectomy was performed. Scope was then continuously retracted back. In the transverse colon where 2 polyps were present, which hot biopsy polypectomy was performed. Noted diverticulosis in the left colon and in the descending colon, there were 2 polyps, which hot biopsy polypectomy was performed and 1 polyp in the sigmoid colon, which hot biopsy polypectomy was performed. At the rectosigmoid junction [ ] the rectum, there was rectal mass, multiple cold biopsies were obtained. Just distal to this area, Sonya inking was performed 1 mL in 3 locations just distal to the mass. Scope was then continuously retracted back to the rectum where further down into the rectum where it was also retroflexed noting no other pathology. The patient tolerated the procedure well without complications, taken to recovery room in stable condition. RECOMMENDATIONS: The patient will follow up on pathology. Further recommendation pending that result. The patient will need discuss further when he did need next colonoscopy depending upon her course of treatment. Job ID: [id number] DocumentID: [id number] Dictated Date: 04/29/2023 15:26:09 Motor Generator Set Operator Date: 04/30/2023 01:04:00 Dictated By: SIMIN DODSON DO
== END 2023-04-29 15:30 | disposition home or self-care (01) ==
LOC: ENDO 12:09
PROVIDERS: ATTEND Surgery
DX: C20 Malignant neoplasm of rectum (principal); D12.2 Benign neoplasm of ascending colon; D12.3 Benign neoplasm of transverse colon; D12.4 Benign neoplasm of descending colon; K57.30 Diverticulosis of large intestine without perforation or abscess without bleeding; C83.30 Diffuse large B-cell lymphoma, unspecified site; Z87.891 Personal history of nicotine dependence

== ENCOUNTER → 2023-05-12 | Outpatient (CLI) | payer MEDICARE, OTHER ==
[~2023-05-12] MED LIST changes: +GADOTERATE 0.5 MMOL/ML (CLARISCAN) 20 ML VIAL IV ONE
--- NOTE | 2023-05-12 13:41 | Diagnostic Imaging Report ---
EXAMINATION: MRI pelvis with and without contrast. TECHNIQUE: Multiplanar, multisequence MRI of the pelvis was performed with and without contrast according to rectal staging protocol. HISTORY: Rectal adenocarcinoma COMPARISON: None available. FINDINGS: Tumor location and morphology: Tumor location: High rectum (10.1-15 cm) Distance of inferior border of tumor to anal verge: 16 cm Distance of inferior border of tumor to anorectal junction: 11.5 cm Tumor relation to the anterior peritoneal reflection: Above. Craniocaudal length: 4.0 cm Morphology: Annular. Mucinous composition: No mucin. T-category: T1-2 (Tumor confined to the submucosa or muscularis propria) For T4b, structures with possible invasion include: Not applicable. Involvement of sphincter complex: Absent. Extramural Vascular Invasion: No. Mesorectal fascia (for T3 only): Shortest distance to mesorectal fascia: NA Separate tumor deposit, suspicious lymph node or EMVI threating (<2 mm) or invading (<1 mm) the CRM: No N-category: N0 Extramesorectal fascia lymph nodes: no Other findings: There is scattered colonic diverticulosis. IMPRESSION: 1. Primary tumor location: High rectum (10.1-15 cm) 2. MRI stage: T1/2N0 3. Sphincter involvement: Absent. 4. MRF status: Clear (tumor margin >2 mm from MRF). 5. EMVI: No. Dictated by: Dictated on workstation # [id number]
== END ==
LOC: RAD 10:15
PROVIDERS: ATTEND Internal Medicine Hematology & Oncology
DX: C83.30 Diffuse large B-cell lymphoma, unspecified site (principal); C20 Malignant neoplasm of rectum
CPT/HCPCS: 72197